=== PATIENT | male | born 1960 | race Caucasian/White ===

== ENCOUNTER 2024-07-14 06:41 | Outpatient (CLI) | payer OTHER, SELFPAY ==
--- NOTE | 2024-07-14 | CA_ITS ---
APPROVED REPORT EXAM: Comprehensive 2D, Doppler, and color-flow Echocardiogram Government Affairs Researcher: Ade Macias RVT Ht: 6 ft 0 in Wt: 195lbs BSA: 2.11 BP: 140/90 mmHg Indications: HEART DISEASE,DM,AICD,CAD,HX CM,VA EVAL 2D Dimensions IVSd 0.73 cm M: 0.6-1.2 LVEF (Visual) 42.60 % PWd 1.06 cm M: 0.6 - 1.2 LA Volume 46.40 mL LVDd 4.82 cm M: 4.2 - 5.9 LA Volume Index 21.99 mL/m2 (M/F) 16-34 LVDs 3.81 cm M: 2.5 - 4.0 M-Mode Dimensions RVDd 3.14 cm (0.9-2.6) LA Diam 4.13 cm (1.9-4.0) LVDd 4.92 cm (3.5-5.7) LVDs 4.08 cm (3.5-5.7) IVSd 0.75 cm (0.6-1.1) PWd 0.94 cm (0.6-1.1) EF (Teich) 35.60% FS 17.10% EDV (Teich) 113.90 mL ESV (Teich) 73.40 mL LV Diastology E Decel Time 150 (160-240 msec) E/A Ratio 0.6 Aortic Valve TARSHA Index 1.94 cm2/m2 AoV Peak Henry. 112.0 (50-130 cm/s) AO Peak GR. 5.00 mmHg AO Mean GR. 3.20 (<5 mmHg) AO VTI 22.5 (18-25 cm) TARSHA (VTI) 4.19 (2.5-4.5 cm2) Mitral Valve MV E Max Henry. 52.0 (40-130 cm/s) MV A Velocity 85.0 (40-130 cm/s) E/A Ratio 0.61 MV PHT 44.0 ms Pulmonary Valve PV Peak Velocity 92.0 (50-150 cm/s) Tricuspid Valve TR P. Velocity 219.00 cm/s RAP Estimate 10.00 mmHg RVSP 29.30 mmHg Left Ventricle The left ventricle is normal size. The left ventricular systolic function is mildly reduced. There is increased LV wall thickness. There is mild global hypokinesis present. The septum is asynchronous. Grade 1 diastolic dysfunction. LVEF is 45%. Right Ventricle The right ventricle is mildly dilated. The right ventricular systolic function is normal. Atria The left atrium size is normal. The right atrium size is normal. There is no Doppler evidence of interatrial shunt. Aortic Valve The aortic valve is mildly thickened. Trace aortic regurgitation. There is no aortic valvular stenosis. Mitral Valve The mitral valve is normal in structure. No evidence of mitral valve stenosis. Trace mitral regurgitation. Tricuspid Valve Tricuspid valve is grossly normal in structure and function. Trace tricuspid regurgitation. There is insufficient TR jet to estimate RVSP. Pulmonic Valve The pulmonary valve is normal in structure. Trace pulmonic regurgitation. Great Vessels The aortic root is normal in size. IVC is normal in size and collapses >50% with inspiration. Pericardium There is no pericardial effusion. Other Information Study Quality: Technically Difficult Conclusion Technically difficult study due to poor acoustic windows. Mildly reduced LV systolic function (LVEF 45%). Mild RV dilation with normal RV function. No significant valvular stenosis or regurgitation. In the setting of technically difficult study and mildly reduced LV systolic function on this TTE, further evaluation with limited TTE with administration of ultrasound enhancing agent is suggested to better delineate the LV endocardial borders and confirm the presence vs. absence of systolic dysfunction. Electronically signed by : Lynn Maynard MD 07/17/2024 21:09:25
--- OUTSIDE RECORDS SUMMARY | 2024-07-14 06:45 | XMS_ITS | Encounter Summary ---
Author Name [facility] [place] [facility] [place] Address [address] [place] [address] Care Team Providers Care Watchmaker Apprentice Name Role Phone GODFREY SALAS Primary Care Provider Unavaila MARTHA Luis Primary Care Provider Unavailabl e Insurance Providers: All historical and current Section Date Range: From patient's date of to the date document was created. This section includes the names of all active insurance providers for the patient. Insurance Provider Type of Coverage Plan Name Start of Policy Coverage End of Policy Coverage Group Number Member ID Insurance Provider's Telephone Number Policy Zuniga's Name Patient's Relationship to Policy Zuniga MEDICARE (WNR) MEDICARE (M) PART A May 30, 2024 PART A [id number] WIGGLESWO RTH,STEWA RT PATIENT MEDICARE (WNR) MEDICARE (M) PART B May 30, 2024 PART B [id number] WIGGLESWO RTH,STEWA RT PATIENT [facility] 2017 SELEC T RETIR ED May 16, 2018 [facility] [id number] [phone] WIGGLESWO RTH,STEWA RT PATIENT [facility] 2017 [employer] A Apr 01, 2017 DOD [id number] WIGGLESWO RTH,STEWA RT PATIENT [facility] 2024 PRIME RETIR ED Apr 01, 2024 PRIME RETIRED [id number] [phone] WIGGLESWO RTH,STEWA RT PATIENT Selected Encounter This section includes the information on record at [place] for the Encounter. Date/Time Encounter Type Encounter Description Reason Pro vider Source Mar 26, 2024 02:00 PM Outpatient Encounter CARDIAC CATHETERIZATION IHE Encounter Template Text not used by [place] Plan of Treatment: Future Appointments (+ 6 months) and Future Tests (+/- 45 days) The Plan of Treatment section includes future care activities for the patient from all [place] treatmentfacilities. This section includes future appointments and future orders which are active, pending or scheduled. Future Appointments This section includes appointments that were scheduled to occur 6 months from the date of the Encounter, up to a maximum of 20 appointments. The data comes from all [place] treatment facilities. Appointment Date/Time Appointment Type Appointme nt Facility Name Apr 08, 2024 08:15 AM [facility] Apr 16, 2024 01:30 PM [facility] - NONE [place] [facility] Apr 16, 2024 02:15 PM [facility] - N[place] [facility] May 05, 2024 09:40 AM AMBUL[facility]ORY - SURGERY [place] [facility] Jun 03, 2024 10:00 AM AM[place]ORY - NONE [place] [facility] Jun 05, 2024 09:30 AM [facility]ORY - NONE [place] [facility] Jun 17, 2024 08:00 AM [facility] Jun 17, 2024 09:00 AM [facility] - [facility]ONE [place] [facility] Jun 25, 2024 08:00 AM [facility] Jun 26, 2024 08:20 AM [facility] - SURGERY [place] [facility] Jun 29, 2024 01:30 PM AM[place]ORY - NONE [place] [facility] Jul 15, 2024 09:00 AM [facility]ORY - NONE [place] [facility] Jul 27, 2024 08:00 AM [facility] [place] [facility] Jul 29, 2024 01:00 PM [facility] August 03, 2024 07:00 AM [facility] - NONE [place] [facility] Sep 23, 2024 10:00 AM [facility] Lab Results: +/- 30 days of the encounter This section includes the Chemistry and Hematology Lab Results on record with [place] for the patient. Radiology Reports and Pathology Reports are provided separately, in subsequent sections. Lab Results This section contains the Chemistry/Hematology Results that were resulted 30 days before or 30 daysafter the date of the Encounter. Date/Time Source Result Type Result - Unit Interpretation Reference Range Specimen Type Comment Mar 23, 2024 09:13 AM [facility] N HBSAG SERUM Specimen Type: SERUM Comment: FOR HBSAB TESTING: Reactive HBsAb denotes immunity by vaccination or recovery from Hepatitis B infection. Individuals found to be reactive for both HBV Core AB total and HBsAb are immune due to prior natural infection. Individuals found to be nonreactive for HBV Core AB total and reactive for HBsAb (anti-HBs) are immune due to prior immunization. Individuals found to be reactive for HBV Core AB total and nonreactive for HBsAb (anti-HBs) are considered to have a current Hepatitis B infection, either acute or chronic. Individuals found to be nonreactive for both HBV Core AB total and HBsAb are at risk for Hepatitis B infection (HBV) and HBV immunization should be considered. FOR HBSAG TEST: Reactive HBsAG indicates acute or chronic Hepatitis B infection. Ordering Provider: MARTHA HENLEY Report Released Date/Time: Mar 16, 2024 11:01 AM Reporting Lab: [address] [address] Performing Lab: [address] [address] HBSAG Nonreactive Nonreactive Mar 23, 2024 09:13 AM [facility] HBSAB S JOSE Specimen Type: SERUM Comment: FOR HBSAB TESTING: Reactive HBsAb denotes immunity by vaccination or recovery from Hepatitis B infection. Individuals found to be reactive for both HBV Core AB total and HBsAb are immune due to prior natural infection. Individuals found to be nonreactive for HBV Core AB total and reactive for HBsAb (anti-HBs) are immune due to prior immunization. Individuals found to be reactive for HBV Core AB total and nonreactive for HBsAb (anti-HBs) are considered to have a current Hepatitis B infection, either acute or chronic. Individuals found to be nonreactive for both HBV Core AB total and HBsAb are at risk for Hepatitis B infection (HBV) and HBV immunization should be considered. FOR HBSAG TEST: Reactive HBsAG indicates acute or chronic Hepatitis B infection. Ordering Provider: MARTHA HENLEY Report Released Date/Time: Mar 16, 2024 11:01 AM Reporting Lab: [address] [address] Performing Lab: [address] [address] HBSAB Nonreactive Nonreactive Mar 23, 2024 09:13 AM [facility] GLYCOHEMOGLOBIN BLOOD Specimen Type: BLOOD Comment: [place] guidelines for A1c interpretation: Glycemic control targets are based on Shared Decision Making between clinicians and patients. Criteria used to establish an A1c target recommendation can be found at https://www.or.gov/qualityandpatientsafety/ and include the use of result accuracy and precision(CV) of the A1c tests clinicians utilize at their own sites of practice. Values obtained from A1C measurements can vary. For typical A1C assays, a reported value of 7.0 could actually be between 6.72 and 7.28 if measured by a reference method. A reported value of 9.0 could actually be between 8.73 and 9.27. Ref: https://ngsp.org/CAPdata.asp. The in-house [employer] D-100 analyzer has a historical CV <= 2%. Contact the laboratory for further performance characteristics of this assay. Ordering Provider: MARTHA HENLEY Report Released Date/Time: Mar 16, 2024 11:01 AM Reporting Lab: [address] [address] Performing Lab: [address] [address] GLYCOHEMOGLOBIN 8.2 H 4.4-6.4 Mar 23, 2024 09:13 AM [facility] LIPID PROFILE PLASMA Specimen Type: PLASMA Comment: FOR HBSAB TESTING: Reactive HBsAb denotes immunity by vaccination or recovery from Hepatitis B infection. Individuals found to be reactive for both HBV Core AB total and HBsAb are immune due to prior natural infection. Individuals found to be nonreactive for HBV Core AB total and reactive for HBsAb (anti-HBs) are immune due to prior immunization. Individuals found to be reactive for HBV Core AB total and nonreactive for HBsAb (anti-HBs) are considered to have a current Hepatitis B infection, either acute or chronic. Individuals found to be nonreactive for both HBV Core AB total and HBsAb are at risk for Hepatitis B infection (HBV) and HBV immunization should be considered. FOR HBSAG TEST: Reactive HBsAG indicates acute or chronic Hepatitis B infection. Ordering Provider: MARTHA HENLEY Report Released Date/Time: Mar 16, 2024 11:01 AM Reporting Lab: [address] [address] Performing Lab: [address] [address] CHOLESTEROL 161 mg/dL 0-199 TRIGLYCERIDE 156 mg/dL H 0-149 HDL CHOLESTEROL 58 mg/dL 40-69 DIRECT LDL CHOL. 100 mg/dL 0-100 Mar 23, 2024 09:13 AM [facility] PSA S JOSE Specimen Type: SERUM No comment entered. Ordering Provider: MARTHA HENLEY Report Released Date/Time: Mar 16, 2024 11:01 AM Reporting Lab: [address] [address] Performing Lab: [address] [address] PSA 1.538 ng/mL 0-3.999 Mar 23, 2024 09:13 AM [facility] PANEL 5 PLASMA Specimen Type: PLASMA Comment: FOR HBSAB TESTING: Reactive HBsAb denotes immunity by vaccination or recovery from Hepatitis B infection. Individuals found to be reactive for both HBV Core AB total and HBsAb are immune due to prior natural infection. Individuals found to be nonreactive for HBV Core AB total and reactive for HBsAb (anti-HBs) are immune due to prior immunization. Individuals found to be reactive for HBV Core AB total and nonreactive for HBsAb (anti-HBs) are considered to have a current Hepatitis B infection, either acute or chronic. Individuals found to be nonreactive for both HBV Core AB total and HBsAb are at risk for Hepatitis B infection (HBV) and HBV immunization should be considered. FOR HBSAG TEST: Reactive HBsAG indicates acute or chronic Hepatitis B infection. Ordering Provider: MARTHA HENLEY Report Released Date/Time: Mar 16, 2024 11:01 AM Reporting Lab: [address] [address] Performing Lab: [facility] [address] [facility] [address] CREATININE 1.34 mg/dL H 0.72-1.25 UREA NITROGEN 26 mg/dL H 9-25 GLUCOSE 169 mg/dL H 74-100 SODIUM 138 mmol/L 136-145 POTASSIUM 4.9 mmol/L 3.5-5.1 CHLORIDE 100 mmol/L 98-107 CO2 28 mmol/L 22-29 CALCIUM 10.1 mg/dL 8.4-10.2 TOTAL PROTEIN 7.1 g/dL 6.4-8.3 ALBUMIN 4.4 g/dL 3.5-5.2 TOTAL BILIRUBIN 0.5 mg/dL 0.2-1.2 AST 27 U/L 5-34 ALT 26 U/L 0-55 ANION GAP 10 meq/L 3-19 ALK PHOS 67 U/L 40-150 eGFR (CKD-EPI) 59 Mar 23, 2024 09:13 AM [facility] PLASMA Specimen Type: PLASM A Comment: Estimated Glomerular Filtration Rate (eGFR) calculated using the 2020 Chronic Kidney Disease-Epidemiology (CKD-EPI) Collaboration creatinine equation; units of measure are mL/min/1.73 m2. Results are only valid for adults (>=18 years) whose serum creatinine is in a steady state. eGFR calculations are not valid for patients with acute kidney injury and for patients on dialysis. Creatinine-based estimates of kidney function may also be inaccurate in patients with reduced creatinine generation due to decreased muscle mass (e.g., malnutrition, severe hypoalbuminemia, sarcopenia, chronic neuromuscular disease, amputations, severe heart failure or liver disease) and in patients with increased creatinine generation due to increased muscle mass (e.g., muscle builders, anabolic steroids) or increased dietary intake. As drug clearance is proportional to total GFR and not GFR indexed to body surface area (BSA), in individuals with a BSA substantially different than 1.73 m2, drug dosing should be based on the reported eGFR value de-indexed from BSA by multiplying by the individual's BSA and dividing by 1.73. CKD is diagnosed based on abnormalities of kidney structure or function, present for >3 months, with implications for health and disease. CKD is classified and staged based on cause, eGFR and albuminuria (quantified as urine albumin to creatinine ratio). An eGFR >60 mL/min/1.73 m2 in the absence of increased urine albumin excretion or structural abnormalities does not represent CKD. eGFR CKD Interpretation (mL/min/1.73 m2) stage >=90 G1 Normal 60-89 G2 Mild decrease 45-59 G3A Mild to moderate decrease 30-44 G3B Moderate to severe decrease 15-29 G4 Severe decrease <15 G5 Kidney failure Ordering Provider: MARTHA HENLEY Report Released Date/Time: Mar 16, 2024 11:01 AM Reporting Lab: [address] [address] Performing Lab: [address] [address] TSH 1.8877 m[IU]/mL 0.3500-4.9400 Mar 23, 2024 09:13 AM [facility] CBC/PLT BLOOD Specimen Type: BLOOD No comment entered. Ordering Provider: MARTHA HENLEY Report Released Date/Time: Mar 16, 2024 11:01 AM Reporting Lab: [address] [address] Performing Lab: [address] [address] WBC 6.5 10*3/uL 5.0-10.0 RBC 5.22 10*6/uL 4.6-6.2 HGB 14.3 g/dL 14.0-18.0 HCT 45.6 42.0-52.0 MCV 87.4 fL 80.0-94.0 MCH 27.4 pg 27.0-31.0 MCHC 31.4 g/dL L 32.0-36.0 PLT 180 10*3/uL 150-450 MPV 9.5 fL 9.0-13.1 RDW 15.6 11.0-16.0 NRBC 0.0 0.0-0.0 Mar 23, 2024 09:13 AM [facility] B12 VITAMIN PLASMA Specimen Type: PLASM A Comment: Estimated Glomerular Filtration Rate (eGFR) calculated using the 2020 Chronic Kidney Disease-Epidemiology (CKD-EPI) Collaboration creatinine equation; units of measure are mL/min/1.73 m2. Results are only valid for adults (>=18 years) whose serum creatinine is in a steady state. eGFR calculations are not valid for patients with acute kidney injury and for patients on dialysis. Creatinine-based estimates of kidney function may also be inaccurate in patients with reduced creatinine generation due to decreased muscle mass (e.g., malnutrition, severe hypoalbuminemia, sarcopenia, chronic neuromuscular disease, amputations, severe heart failure or liver disease) and in patients with increased creatinine generation due to increased muscle mass (e.g., muscle builders, anabolic steroids) or increased dietary intake. As drug clearance is proportional to total GFR and not GFR indexed to body surface area (BSA), in individuals with a BSA substantially different than 1.73 m2, drug dosing should be based on the reported eGFR value de-indexed from BSA by multiplying by the individual's BSA and dividing by 1.73. CKD is diagnosed based on abnormalities of kidney structure or function, present for >3 months, with implications for health and disease. CKD is classified and staged based on cause, eGFR and albuminuria (quantified as urine albumin to creatinine ratio). An eGFR >60 mL/min/1.73 m2 in the absence of increased urine albumin excretion or structural abnormalities does not represent CKD. eGFR CKD Interpretation (mL/min/1.73 m2) stage >=90 G1 Normal 60-89 G2 Mild decrease 45-59 G3A Mild to moderate decrease 30-44 G3B Moderate to severe decrease 15-29 G4 Severe decrease <15 G5 Kidney failure Vitamin B12 test may not yield results when protein level of sample is too elevated. Ordering Provider: MARTHA HENLEY Report Released Date/Time: Mar 16, 2024 11:01 AM Reporting Lab: [address] [address] Performing Lab: [address] [address] B12 VITAMIN 518 pg/mL 213-816 Mar 23, 2024 09:13 AM [facility] 25-OH VITAMIN D SERUM Specime n Type: SERUM Comment: The National Institutes of Health (NIH) recommendations state: <12 ng/mL - Deficient 20 - 50 ng/mL - Optimal Levels - adequate for most people. >50 ng/mL - Increased risk of hypercalciuria/other health problems - clinical correlation is required. These reference ranges represent clinical decision values rather than population-based reference values. Ordering Provider: MARTHA HENLEY Report Released Date/Time: Mar 16, 2024 11:01 AM Reporting Lab: [place] [phone] Performing Lab: [place] [phone] 25-OH VITAMIN D 51.2 ng/mL H 20.0-50.0 Mar 11, 2024 06:10 AM [facility] GLUCOSE-HAND MONITOR CAPILLARY Specime n Type: CAPILLARY Comment: Test performed by: [id number] Meter #: [id number] Ordering Provider: FELIBERTO MERINO Report Released Date/Time: Mar 11, 2024 06:27 AM Reporting Lab: [address] [address] Performing Lab: [address] [address] GLUCOSE-HAND MONITOR 170 mg/dL H Mar 10, 2024 08:59 PM [facility] GLUCOSE-HAND MONITOR CAPILLARY Specime n Type: CAPILLARY Comment: Test performed by: [id number] Meter #: [id number] Ordering Provider: FELIBERTO MERINO Report Released Date/Time: Mar 10, 2024 09:52 PM Reporting Lab: [address] [address] Performing Lab: [address] [address] GLUCOSE-HAND MONITOR 260 mg/dL H Mar 10, 2024 05:47 PM [facility] GLUCOSE-HAND MONITOR CAPILLARY Specime n Type: CAPILLARY Comment: Test performed by: [id number] Meter #: [id number] Ordering Provider: FELIBERTO MERINO Report Released Date/Time: Mar 10, 2024 11:25 PM Reporting Lab: [address] [address] Performing Lab: [address] [address] GLUCOSE-HAND MONITOR 299 mg/dL H 71-99 Mar 10, 2024 10:36 AM [facility] MRSA SURVL NARES DNA NARES Specime n Type: NARES Comment: Results from the Xpert MRSA NxG PCR test should be interpreted in conjunction with other laboratory and clinical data available to the clinician, and should be used as an adjunct to nosocomial infection control efforts to identify patients needing enhanced precautions. Results should not be used to guide or monitor treatment for MRSA infections. The Xpert MRSA NxG PCR test is not intended to diagnose, guide or monitor treatment for MRSA infections, or determine susceptibility to methicillin. An Xpert MRSA NxG PCR test positive result does not necessarily indicate intervention eradication failure since nonviable DNA may persist. A negative result following a previously positive test result may or may not indicate eradication success. Ordering Provider: FELIBERTO MERINO Report Released Date/Time: Mar 05, 2024 10:58 AM Reporting Lab: [address] [address] Performing Lab: [address] [address] MRSA SURVL NARES DNA Negative Negative Mar 10, 2024 08:52 AM [facility] PANEL 1 PLASMA Specimen Type: PLASM A Comment: Estimated Glomerular Filtration Rate (eGFR) calculated using the 2020 Chronic Kidney Disease-Epidemiology (CKD-EPI) Collaboration creatinine equation; units of measure are mL/min/1.73 m2. Results are only valid for adults (>=18 years) whose serum creatinine is in a steady state. eGFR calculations are not valid for patients with acute kidney injury and for patients on dialysis. Creatinine-based estimates of kidney function may also be inaccurate in patients with reduced creatinine generation due to decreased muscle mass (e.g., malnutrition, severe hypoalbuminemia, sarcopenia, chronic neuromuscular disease, amputations, severe heart failure or liver disease) and in patients with increased creatinine generation due to increased muscle mass (e.g., muscle builders, anabolic steroids) or increased dietary intake. As drug clearance is proportional to total GFR and not GFR indexed to body surface area (BSA), in individuals with a BSA substantially different than 1.73 m2, drug dosing should be based on the reported eGFR value de-indexed from BSA by multiplying by the individual's BSA and dividing by 1.73. CKD is diagnosed based on abnormalities of kidney structure or function, present for >3 months, with implications for health and disease. CKD is classified and staged based on cause, eGFR and albuminuria (quantified as urine albumin to creatinine ratio). An eGFR >60 mL/min/1.73 m2 in the absence of increased urine albumin excretion or structural abnormalities does not represent CKD. eGFR CKD Interpretation (mL/min/1.73 m2) stage >=90 G1 Normal 60-89 G2 Mild decrease 45-59 G3A Mild to moderate decrease 30-44 G3B Moderate to severe decrease 15-29 G4 Severe decrease <15 G5 Kidney failure Ordering Provider: FELIBERTO MERINO Report Released Date/Time: Mar 05, 2024 10:58 AM Reporting Lab: [address] [address] Performing Lab: [address] [address] CREATININE 1.36 mg/dL H 0.72-1.25 UREA NITROGEN 28 mg/dL H 9-25 GLUCOSE 137 mg/dL H 74-100 SODIUM 136 mmol/L 136-145 POTASSIUM 4.5 mmol/L 3.5-5.1 CHLORIDE 104 mmol/L 98-107 CO2 28 mmol/L 22-29 CALCIUM 10.0 mg/dL 8.4-10.2 ANION GAP 4 meq/L 3-19 eGFR (CKD-EPI) 58 Mar 10, 2024 08:51 AM [facility] CBC/PLT BLOOD Specimen Type: BLOOD No comment entered. Ordering Provider: FELIBERTO MERINO Report Released Date/Time: Mar 05, 2024 10:58 AM Reporting Lab: [address] [address] Performing Lab: [address] [address] WBC 5.6 10*3/uL 5.0-10.0 RBC 4.87 10*6/uL 4.6-6.2 HGB 13.7 g/dL L 14.0-18.0 HCT 42.8 42.0-52.0 MCV 87.9 fL 80.0-94.0 MCH 28.1 pg 27.0-31.0 MCHC 32.0 g/dL 32.0-36.0 PLT 159 10*3/uL 150-450 MPV 9.3 fL 9.0-13.1 RDW 16.5 H 11.0-16.0 NRBC 0.0 0.0-0.0 Radiology Reports: +/- 30 days of the encounter Radiology Reports For cases when an order for radiology services may have been completed prior to the date of the Encounter, the report list includes the Radiology Reports that were completed up to 30 days before dateof the Encounter. For cases when an order for radiology services may have been completed after the date of the Encounter, the report list also includes the Radiology Reports that were completed up to30 days after date of the Encounter. The data comes from all [place] treatment facilities. Date/Time Radiology Report Provider Source Mar 11, 2024 04:50 AM CHEST SINGLE(1) EW: KATE CARTER [id number] -[id number] M Exm Date: MAR 11, 2024@04:50 Req Phys: DOV TELLES Pat Loc: 5-OBM/TEL/03-11-2024@08:53 Img Loc: CDD RADIOLOGY Service: [place] [address] (Case [id number] COMPLETE)CHEST SINGLE(1) VIEW (RAD Detailed) CPT:27316 Proc Modifiers : PORTABLE EXAM Reason for Study: POST EPS PROCEDURE Clinical History: Rule out PTX s/p BiV ICD Report Status: Verified Date Reported: MAR 11, 2024 Date Verified: MAR 11, 2024 Casing Running Machine Tender E-Sig: Report: EXAMINATION: SINGLE VIEW CHEST CLINICAL INDICATIONS: Rule out pneumothorax after pacemaker placement COMPARISON: 02/13/2023 FINDINGS: Pacemaker from left subclavian approach has been placed with electrodes projecting within right atrium and right ventricle. There is no appreciable pneumothorax. Lungs are clear of acute infiltrate. Cardiovascular structures are unremarkable. Impression: Successful pacemaker placement without evidence of pneumothorax. Primary Diagnostic Code: NO ALERT REQUIRED Primary Interpreting Staff: CHIN B ANNA, Radiologist Verified by lottery sales clerk for [facility] Mar 10, 2024 07:46 AM TYPE INSPECTOR - FLUORO UP TO 1 HOUR: KATE CARTER [id number] -[id number] M Exm Date: MAR 10, 2024@07:46 Req Phys: FELIBERTO MERINO Pat Loc: CARDIAC CATH/OPT/CDD (Req'g Lo Img Loc: ANGIO/NEURO/INTERVENTIONAL Service: [place] [address] (Case [id number] COMPLETE) TYPE INSPECTOR - FLUORO UP TO 1 HOUR (ANI Detailed) CPT:89061 Reason for Study: BI-V-ICD Clinical History: BI-V-ICD Report Status: Verified Date Reported: Date Verified: MAR 10, 2024 Casing Running Machine Tender E-Sig: Report: See Impression Impression: Primary Care Physician imaging capture for storage. Please see CPRS Primary Care Physician consults and notes in CPRS for final reporting and exam documentation. Primary Diagnostic Code: Primary Interpreting Staff: [place] OTHER [place]AN [place] [facility], Staff Physician Verified by lottery sales clerk for [facility] [facility] /[facility] RADIOLOGIST,PHYS OTHER THAN [facility] Encounter Notes: All associated encounter notes This section contains the clinical notes associated to the Encounter. Date/Time Encounter Note(s) Provider Source Mar 10, 2024 08:59 AM CARDIOLOGY PROCEDU RE NOTE: LOCAL TITLE: CARDIAC CATH PROVIDER PROCEDURE REPORT STANDARD TITLE: CARDIOLOGY PROCEDURE NOTE DATE OF NOTE: MAR 10, 2024@08:59 ENTRY DATE: MAR 10, 2024@08:59:12 AUTHOR: FELIBERTO MERINO EXP COSIGNER: URGENCY: STATUS: COMPLETED Indications/Reason for Visit: Here for a Biv-ICD implant. History: Summary 02/21/24- TTE 09/25/23- Summary A complete two-dimensional transthoracic echocardiogram was performed (2D, M- mode, Doppler and color flow Doppler). Left Ventricle The left ventricular end-diastolic volume index (2D biplane method) is dilated for males (>74mL/m2). There is no thrombus. There is concentric left ventricular hypertrophy indexed for BSA (>102gm/m2). The estimated LVEF based upon the biplane Payan MOD technique is '27%'. SV index: 25 cc/m2; cardiac index: 1.8 liters/min/m2 using the continuity equation and an LVOT dimension of 22mm. There is severe global hypokinesis of the left ventricle. Right Ventricle The right ventricle is grossly normal size. The right ventricular systolic function is normal. Unable to estimate RVSP due to inadequate TR signal. Atria The left atrial volume index (ml/m2) is 'mildly dilated (35-41ml/m2)'. The right atrial size is normal. The RAP could not adequately be measured and an assumed pressure of 8mmHg was used to estimate the RVSP. Mitral Valve The mitral valve is normal in appearance. There is no mitral stenosis. There is mild mitral regurgitation. Tricuspid Valve The tricuspid valve is normal. There is no tricuspid stenosis. There is trace tricuspid regurgitation. Aortic Valve The aortic valve appears to be anatomically normal (trileaflet). No hemodynamically significant valvular aortic stenosis. No aortic regurgitation. Pulmonic Valve The pulmonic valve is not well seen, but is grossly normal. There is no pulmonic valvular stenosis. No pulmonic valvular regurgitation. Great Vessels The aortic root is normal size. The aorta at the Sinuses of Valsalva (leading edge to leading edge method) is 3.6 cm in diameter. The pulmonary artery is not well visualized. Pericardium/Pleural There is no pericardial effusion. CMRI - 04/23/23- Severely dilated left ventricle with severely depressed systolic function and an LV ejection fraction 24% 2. There is mid to distal LAD subendocardial enhancement (mixed, likely viable). RCA and LCx are viable. 3. Normal sized right ventricle with normal systolic function and an RV ejection fraction 56% 4. No significant valvular stenosis or regurgitation Assessment of the problems: Diagnosis: Ischemic Cardiomyopathy Left Bundle-Branch Block, unspecified Hypertensive Heart Disease with Heart Failure Hyperlipidemia, unspecified Clinical discussion and treatment plan: 63 y/o with - Ischemic cardiomyopathy - well compensated and euvolemic, on GDMT- RBA d/w pt - TTE 09/25/23 - LVEF 27%, CMRI 04/23/23- LVEF 24% Left Bundle - EKG - SR, QRS 166ms HTN - on Rx - HLD - on Rx - Plan- [facility] - Mar 10 Return to clinic: as above Meds were renewed as needed. Procedure: Mallampati: 3 ASA: 2 Mr. Carter was brought to the EP lab in a fasting state and was consented, prepped, draped, administered conscious sedation. Left subclavian access was obtained using a micropuncture needle set by means of the modified Seldinger technique, a pre pectoral incision was placed after infiltrating the skin with lidocaine. By means of sharp and blunt dissection a pocket was fashioned, hemostasis was attained, an RV lead with a shock coils was placed at the inferior RV septum, an RA lead was positioned at the RA appendage, an LV delivery sheath was then positioned within the CS and an occlusion CS angiogram was cine'd. The LV lead was positioned in an identified target vessel. Good lead thresholds were confirmed prior to securing the leads to the fascial bed using silk sutures. The leads were then connected to a pulse generator, the pocket was irrigated with copious amounts of antibx solution, the system was then implanted, DFT's were not assessed, the pocket was closed in multiple layers (skin was stapled), and a sterile dressing (Aquacel) was then placed. Pt tolerated the procedure well, there were no immediate complications. Device details: Generator - [facility], model [id number], SN [id number]. RA lead - [facility], model [id number], SN [id number]. RV lead - [facility], model 7122Q, SN [id number]. LV - [facility], model 1458QL, SN [id number]. Parameters: RA - threshold - 0.25v@0.5ms, 460 ohms, sensing - >5mV RV - threshold - 0.25v@0.5ms, 640 ohms, sensing - >12mV LV - threshold - 1.25v@0.5ms, 700 ohms. DFT's - were not assessed. Shock coil impedance - 73 ohms. Follow-up Treatment and Patient Instructions: Ancef 1gm IV X 1 dose, portable CXR to r/o PNTX, DC in am with FU afte 10 days for wound check and device check, staple removal. /amando/ FELIBERTO MERINO MD ATTENDING PHYSICIAN CARDIAC ELECTROPHYSIOLOGY Signed: 03/10/2024 13:15 FELIBERTO MERINO-[facility]
--- OUTSIDE RECORDS SUMMARY | 2024-07-14 06:46 | XMS_ITS | Encounter Summary ---
Author Name [facility] [place] Organization [facility] [place] Address [address] [place] [address] Care Team Providers Care Stem Setter Name Role Phone GODFREY SALAS Primary Care [...] PART A May 30, 2024 PART A [id number] WIGGLESWO RTH,STEWA RT PATIENT MEDICARE (WNR) MEDICARE (M) PART B May 30, 2024 PART B [id number] WIGGLESWO RTH,STEWA RT PATIENT [facility] 2017 SELEC T RETIR ED May 16, 2018 [facility] RETIRED [id number] [phone] WIGGLESWO RTH,STEWA RT PATIENT [facility] 2017 [facility] [employer] A Apr 01, 2017 DODA [id number] WIGGLESWO RTH,STEWA RT PATIENT [facility] 2024 PRIME RETIR ED Apr 01, 2024 PRIME RETIRED [id number] [phone] WIGGLESWO RTH,STEWA RT PATIENT Selected Encounter This section includes the information on record at [place] for the Encounter. Date/Time Encounter Type Encounter Description Reason Provider Source Jun 17, 2024 08:00 AM INTERROG DEVICE EVAL HEART CIED DEVICES ICD-10-CM I25.5 Ischemic cardiomyopathy DOV TELLES Encounter Template Text not used by [place] Assessments - Encounter Diagnoses This section includes the primary and secondary diagnoses documented for the Encounter. Date/Time Primary/Secondary Diagnosis Diagnosis Name Provider Source Jun 17, 2024 08:32 AM PRIMARY Ischemic cardiomyopathy DOV TELLES [facility] Plan of Treatment: Future Appointments (+ 6 months) and Future Tests (+/- 45 days) The Plan of Treatment section includes future care activities for the patient from all [place] [facility]. This section includes future appointments and future orders which are active, pending or scheduled. Future Appointments This section includes appointments that were scheduled to occur 6 months from the date of the Encounter, up to a maximum of 20 appointments. The data comes from all [facility]. Appointment Date/Time Appointment Type Appointme nt Facility Name Jun 25, 2024 08:00 AM AMBULATORY - MEDICINE [facility] Jun 26, 2024 08:20 AM AMBULATORY - SURGERY [place] [facility] Jun 29, 2024 01:30 PM AMBULATORY - NONE [place] [facility] Jul 15, 2024 09:00 AM [facility]ORY - NONE [place] Jul 27, 2024 08:00 AM AMBULATORY - SURGERY [place] [facility] Jul 29, 2024 01:00 PM AMBULATORY - MEDICINE [facility] August 03, 2024 07:00 AM AMBULATORY - NONE [place] [facility] Sep 23, 2024 10:00 AM AMBULATORY - MEDICINE [facility] Nov 03, 2024 09:40 AM AMBULATORY - SURGERY [facility] Active, Pending, and Scheduled Orders This section includes a listing of several types of active, pending, and scheduled orders, including clinic medications orders, diagnostic test orders, procedure orders and consult orders; where the start date of the order is 45 days before the date of the Encounter or 45 days after the date of theEncounter. The data comes from all [facility]. Test Date/Time Test Type Test Details Facility Name Jun 26, 2024 09:07 AM Consult Order PAIN CLINI C ANESTHESIOLOGY/PAIN CD OUTPATIENT Cons Compotype Operator's Choice [facility] Jul 15, 2024 12:00 AM Imaging - Ultrasou nd Order FNA BX W/ ULTRASND GDN,1ST LESION [facility] Radiology Reports: +/- 30 days of the [...] the Encounter. The data comes from all [facility]. Date/Time Radiology Report Provider Source Jun 29, 2024 12:58 PM U/S THYROID: DEBORAHHERMILOLEONELKATE [id number] -[id number] M Exm Date: JUN 29, 2024@12:58 Req Phys: MARTHA HENLEY Pat Loc: X-RAY/MRI/DOROTHEA/NC (Req'g Loc Img Loc: ULTRASOUND Service: [place] [address] (Case [id number] COMPLETE) U/S THYROID (US Detailed) CPT:92816 Reason for Study: SEE CLINICAL HISTORY Clinical History: REASON FOR EXAM:Nodule/Lesion follow up PERTINENT PATIENT HISTORY: PROVIDER ExtPager# Report Status: Verified Date Reported: JUN 30, 2024 Date Verified: JUN 30, 2024 Cardiovascular Physician Assistant E-Sig: Report: EXAMINATION: THYROID ULTRASOUND CLINICAL INDICATIONS: MRI cervical spine report describing Suggestion of small left thyroid nodule. Follow-up nonemergent thyroid sonogram is also recommended for confirmation. COMPARISON: MRI cervical spine 06/17/2024 FINDINGS: The right thyroid lobe measures 4.5 x 1.4 x 2.1 cm in left thyroid measures 4.6 x 1.7 x 1.9 cm. The isthmus measures 2.4 mm. Nodule 1 in the superior right thyroid lobe measures 8.8 x 9.8 x 5.5 mm. This is considered a TR 4 lesion for which no additional follow-up is recommended given its size. Nodule 2 in the posterior mid right thyroid measures 8.9 x 13.1 x 9.5 mm and is considered a TR 4 lesion for which one-year follow-up exam is recommended. A heterogeneous complex cystic and solid nodule predominantly solid in the superior left thyroid lobe measures 18.7 x 21.4 x 12.7 mm and contains some punctate echogenic foci. This is considered to be a TR 5 lesion which is suspicious and for which fine-needle aspiration is recommended. Impression: Dominant nodule in the left thyroid lobe for which fine-needle aspiration is recommended. 1 year follow-up thyroid ultrasound of right thyroid nodule is recommended Primary Diagnostic Code: POSSIBLE MALIGNANCY Primary Interpreting Staff: CHIN CASTILLO, Radiologist Verified by leadership recruiter for CHIN CASTILLO /CHIN LEES-MARÍA [facility] Jun 17, 2024 08:36 AM MRI C SPINE W/O CO NTRAST: KATE CARTER [id number] -[id number] M Exm Date: JUN 17, 2024@08:36 Req Phys: MARTHA HENLEY Pat Loc: XIOMY PACT JACI 1-2 (Req'g Lo Img Loc: MAGNETIC [facility]ON[facility] IMAGING Service: [place] [address] (Case [id number] COMPLETE) MRI C SPINE W/O CONTRAST (MRI Detailed) CPT:50773 Reason for Study: SEE CLINICAL HISTORY Clinical History: STATUS OF PLAIN FILMS:Done, exam date/impression above. MRI Screening (Required): IMPLANTED DEVICE DOCUMENTATION 03/11/2024 09:29 Local Title: IMPLANTED CARDIAC DEVICE Standard Title: CLINICAL WARNING Patient has an Implanted Cardiac Device. Cardiac Device Type: BIV ICD Cage Operator: [employer] Device details: Generator - [employer], model [id number], SN [id number]. RA lead - [employer], model [id number], SN [id number]. RV lead - [employer], model [id number], SN [id number]. LV - [employer], model [id number], SN [id number]. Parameters: RA - threshold - 0.25v@0.5ms, 460 ohms, sensing - >5mV RV - threshold - 0.25v@0.5ms, 640 ohms, sensing - >12mV LV - threshold - 1.25v@0.5ms, 700 ohms. DFT's - were not assessed. Shock coil impedance - 73 ohms. Implant 03/10/2024 Dr. Mckinney Signed by: /es/ RUTHANN BARONE RN 03/11/2024 09:32 Does the have any Cardiac Implants? ICD Does the have any implanted stimulators? None Does the Trenary have cochlear implants? No Does the have Cerebral aneurysm clip(s)? No Does the Trenary have any shrapnel? No If yes, where in your body? Please list other implants not listed above: MRI table has a weight limit of 551 lbs. Trenary's Weight: *198 lb [89.81 kg] (03/16/2024 10:02) Is this patient claustrophobic?: No REASON FOR EXAM: OTHER (provide detailed justification for your request) PERTINENT PATIENT HISTORY: Cervical radiculopathy Risk factors for GADOLINIUM NEPHROGENIC SYSTEMIC SCLEROSIS: Report Status: Verified Date Reported: JUN 17, 2024 Date Verified: JUN 17, 2024 Cardiovascular Physician Assistant E-Sig: Report: KATE PAVON RAUL 1960 EXAM: MRI C SPINE W/O CONTRAST INDICATION: Cervical radiculopathy. COMPARISON: Radiographs dated 10/06/2020. TECHNIQUE: Multiplanar multisequential MRI of the cervical spine was performed without gadolinium contrast. FINDINGS: Bone marrow signal intensity is normal. There is no acute fracture or subluxation. Surgical fusion of C4, C5 and C6 vertebral bodies is again identified. C2-3 level is unremarkable. At C3-4 level, there is a small broad-based central disc osteophyte complex resulting in severe spinal stenosis. There is also suggestion of subtle T2 signal hyperintensity within the spinal cord concerning for cord compression. There is also severe bilateral neural foraminal stenosis from facet and uncovertebral joint hypertrophy. C4-5 and C5-6 levels are unremarkable. At C6-7 level, there is a small broad-based central disc bulge mildly effacing the ventral CSF. There is mild left neural foraminal stenosis from facet and uncovertebral joint hypertrophy. C7-T1 level and paraspinal soft tissues are unremarkable. There is suggestion of small left thyroid nodule. Impression: 1. Suggestion of spinal cord compression at C3-4 level from a small central disc osteophyte complex. Close clinical follow-up and prompt surgical evaluation are recommended. 2. Multilevel neural foraminal stenosis as detailed above. 3. Suggestion of small left thyroid nodule. Follow-up nonemergent thyroid sonogram is also recommended for confirmation. Primary Diagnostic Code: CRITICAL ABNORMALITY Primary Interpreting Staff: FATUMA GARCIA, Staff Physician Verified by leadership recruiter for FATUMA GARCIA /OCTAVIA GARCIA,[facility]MA [facility] Encounter Notes: All associated encounter notes This section contains the clinical notes associated to the Encounter. Date/Time Encounter Note(s) Provider Source Jun 17, 2024 08:22 AM NURSING OUTPATIENT NOTE: LOCAL TITLE: [facility]INIC INTAKE NOTE STANDARD TITLE: NURSING OUTPATIENT NOTE DATE OF NOTE: JUN 17, 2024@08:22 ENTRY DATE: JUN 17, 2024@08:22:31 AUTHOR: LISA BARONE EXP COSIGNER: URGENCY: STATUS: COMPLETED Reason for visit/chief complaint: B/P: 128/75 (06/17/2024 08:20) P: 70 (06/17/2024 08:20) R: 16 (03/16/2024 10:02) T: 97.5 F [36.4 C] (06/17/2024 08:20) HT: 72 in [182.9 cm] (03/16/2024 10:02) WT: 204.4 lb [92.71 kg] (06/17/2024 08:20) Are you having any pain or recurrent pain in the last several weeks/months? No Severity Scale (0) Location: Duration: Characteristics: Pain education material offered to patient (for pain > 3) No Risk factors history: Hypertension Yes BP Rechecked No Comments: Patient notified dairy feed worker available upon request for any examinations/procedures. The patient was given a list of his/her medications, instructed to review and discuss any changes or problems with their provider. Patient advised to carry a list of current medications and any allergies with them in the event of emergency situations. Allergies: local and remote VANCOMYCIN, GABAPENTIN, PREGABALIN, SIMVASTATIN, ROSUVASTATIN FACILITY ALLERGY/ADR -------- 581^DEBI [facility]^581 VANCOMYCIN Medication Reconciliation ACTIVE OUTPATIENT MEDICATIONS LOCAL/REMOTE ACCU-CHEK GUIDE (GLUCOSE) TEST STRIP Directions: USE 1 STRIP TO TEST BLOOD SUGAR DIRECTED Quantity: 200 for 90 days Issued: 03/08/24 Filled: 03/09/24 Expires: 03/09/25 Refills: 3 Status: ACTIVE ACETAMINOPHEN 325MG TAB Directions: TAKE TWO TABLETS BY MOUTH THREE TIMES A DAY NEEDED FOR PAIN DO NOT TAKE MORE THAN 12 TABLETS PER DAY Quantity: 200 for 30 days Issued: 03/16/24 Filled: 05/04/24 Expires: 03/17/25 Refills: 2 Status: ACTIVE ASPIRIN 81MG EC TAB Directions: TAKE ONE TABLET BY MOUTH DAILY FOR HEART Quantity: 90 for 90 days Issued: 01/29/24 Filled: 04/19/24 Expires: 01/29/25 Refills: 2 Status: ACTIVE CHOLECALCIF 25MCG (D3-1,000UNIT) TAB Directions: TAKE ONE TABLET BY MOUTH DAILY FOR VITAMIN D SUPPLEMENT Quantity: 100 for 90 days Issued: 12/03/23 Filled: 05/23/24 Expires: 12/03/24 Refills: 2 Status: ACTIVE EMPAGLIFLOZIN 10MG TAB Directions: TAKE ONE TABLET BY MOUTH EVERY MORNING FOR HEART FAILURE Quantity: 90 for 90 days Issued: 09/25/23 Filled: 06/25/24 Expires: 09/25/24 Refills: 0 Status: ACTIVE EZETIMIBE 10MG TAB Directions: TAKE ONE TABLET BY MOUTH EVERY EVENING FOR CHOLESTEROL Quantity: 90 for 90 days Issued: 09/25/23 Filled: 04/06/24 Expires: 09/25/24 Refills: 1 Status: ACTIVE FLUTICASONE PROP 50MCG 120D NASAL INHL Directions: USE 1 SPRAY IN EACH NOSTRIL DAILY FOR NASAL ALLERGY Quantity: 3 for 90 days Issued: 11/11/23 Filled: 04/29/24 Expires: 11/11/24 Refills: 1 Status: ACTIVE GLIPIZIDE 10MG TAB Directions: TAKE TWO TABLETS BY MOUTH TWICE A DAY FOR DIABETES Quantity: 360 for 90 days Issued: 12/10/23 Filled: 04/06/24 Expires: 12/10/24 Refills: 2 Status: ACTIVE GLUCOSE 4GM CHEW TAB Directions: CHEW 4 TABLETS (16 GRAMS OF CARBS) BY MOUTH DIRECTED FOR LOW BLOOD SUGAR Quantity: 90 for 90 days Issued: 05/28/24 Filled: 05/28/24 Expires: 05/29/25 Refills: 3 Status: ACTIVE GLUCOSE SENSOR DEXCOM G7 Directions: USE SENSOR DIRECTED EVERY 10 DAYS FOR BLOOD SUGAR MONITORING Quantity: 9 for 90 days Issued: 03/17/24 Filled: 03/20/24 Expires: 03/18/25 Refills: 3 Status: ACTIVE INSULIN,GLARGINE 100 UNT/ML 3ML SOLOSTAR Directions: INJECT 24 UNITS UNDER THE SKIN DAILY FOR BLOOD SUGAR -DISCARD PEN AFTER 28 DAYS OF USE. REPLACES GLARGINE-YFGN Quantity: 5 for 60 days Issued: 05/11/24 Filled: 05/13/24 Expires: 05/12/25 Refills: 5 Status: ACTIVE LATANOPROST 0.005% OPH SOLN Directions: PUT 1 DROP IN BOTH EYES AT BEDTIME FOR GLAUCOMA Quantity: 10 for 90 days Issued: 04/15/24 Filled: 04/15/24 Expires: 04/16/25 Refills: 3 Status: ACTIVE METFORMIN HCL 500MG 24HR SA TAB Directions: TAKE TWO TABLETS BY MOUTH TWICE A DAY FOR DIABETES Quantity: 120 for 30 days Issued: 02/05/24 Filled: 06/25/24 Expires: 02/05/25 Refills: 6 Status: ACTIVE METOPROLOL SUCCINATE 100MG SA TAB Directions: TAKE ONE AND ONE-HALF TABLETS BY MOUTH DAILY FOR HEART Quantity: 135 for 90 days Issued: 09/25/23 Filled: 06/12/24 Expires: 09/25/24 Refills: 0 Status: ACTIVE MULTIVIT/OPHTH AREDS2/LUTE/ZEAX CAP/TAB Directions: TAKE 1 SOFTGEL BY MOUTH TWICE A DAY AFTER MEALS FOR EYE HEALTH Quantity: 180 for 90 days Issued: 01/17/24 Filled: 04/09/24 Expires: 01/17/25 Refills: 2 Status: ACTIVE NEEDLE,PEN 32G,4MM Directions: USE 1 NEEDLE UNDER THE SKIN EVERY DAY Quantity: 100 for 90 days Issued: 03/06/24 Filled: 03/09/24 Expires: 03/07/25 Refills: 1 Status: ACTIVE OMEPRAZOLE 20MG EC CAP Directions: TAKE ONE CAPSULE BY MOUTH TWICE A DAY FOR STOMACH. TAKE ON AN EMPTY STOMACH Quantity: 180 for 90 days Issued: 02/05/24 Filled: 05/11/24 Expires: 02/05/25 Refills: 2 Status: ACTIVE ROSUVASTATIN CA 40MG TAB Directions: TAKE ONE TABLET BY MOUTH DAILY FOR CHOLESTEROL Quantity: 90 for 90 days Issued: 09/25/23 Filled: 06/26/24 Expires: 09/25/24 Refills: 0 Status: ACTIVE SACUBITRIL 97MG/VALSARTAN 103MG TAB Directions: TAKE 1 TABLET BY MOUTH TWICE A DAY FOR HEART FAILURE Quantity: 180 for 90 days Issued: 01/29/24 Filled: 05/18/24 Expires: 01/29/25 Refills: 2 Status: ACTIVE SPIRONOLACTONE 25MG TAB Directions: TAKE ONE TABLET BY MOUTH DAILY FOR HEART FAILURE Quantity: 90 for 90 days Issued: 09/25/23 Filled: 06/12/24 Expires: 09/25/24 Refills: 0 Status: ACTIVE No remote medications found. PENDING OUTPATIENT MEDICATONS (LOCAL/REMOTE): No local medications found. No remote medications found. ACTIVE NONVA MEDICATIONS (LOCAL): ASCORBIC ACID 500MG TAB Directions: 1000MG MOUTH DAILY Status: ACTIVE CENTRUM SILVER TABLET Directions: 1 TABLET MOUTH DAILY Status: ACTIVE COENZYME Q10 CAP/TAB Directions: 1 CAP/TAB MOUTH DAILY Status: ACTIVE MAGNESIUM OXIDE 420MG TAB Directions: 840MG MOUTH DAILY Status: ACTIVE OUTPATIENT MEDICATIONS (LOCAL)WITHIN 90 DAYS: No local medications found. DISCONTINUED OUTPATIENT MEDICATIONS (LOCAL) WITHIN 90 DAYS: ACETAMINOPHEN 325MG TAB Directions: TAKE TWO TABLETS BY MOUTH TWICE A DAY NEEDED FOR PAIN - DO NOT TAKE MORE THAN 12 TABLETS PER DAY Quantity: 100 for 30 days Issued: 07/28/23 Filled: 11/22/23 Expires: 07/28/24 Refills: 0 Status: DISCONTINUED FLUTICASONE PROP 50MCG 120D NASAL INHL Directions: USE 1 SPRAY IN EACH NOSTRIL DAILY FOR NASAL ALLERGY Quantity: 2 for 90 days Issued: 10/22/23 Filled: 11/22/23 Expires: 10/22/24 Refills: 3 Status: DISCONTINUED INSULIN,GLARGINE-YFGN 100UNIT/ML *PEN* Directions: INJECT 24 UNITS UNDER THE SKIN DAILY FOR BLOOD SUGAR -DISCARD PEN AFTER 28 DAYS OF USE Quantity: 5 for 60 days Issued: 05/11/24 Filled: 05/11/24 Expires: 05/12/25 Refills: 5 Status: DISCONTINUED MUPIROCIN 2% OINT Directions: APPLY SMALL AMOUNT TO AFFECTED AREA TWICE A DAY FOR SKIN INFECTION Quantity: 22 for 30 days Issued: 04/11/23 Filled: 04/11/23 Expires: 04/11/24 Refills: 1 Status: DISCONTINUED SACUBITRIL 24MG/VALSARTAN 26MG TAB Directions: TAKE 1 TABLET BY MOUTH TWICE A DAY FOR HEART FAILURE Quantity: 180 for 90 days Issued: 05/08/23 Filled: 05/08/23 Expires: 05/08/24 Refills: 3 Status: DISCONTINUED SPIRONOLACTONE 25MG TAB Directions: TAKE ONE-HALF TABLET BY MOUTH DAILY FOR HEART FAILURE Quantity: 15 for 30 days Issued: 06/04/23 Filled: 07/24/23 Expires: 06/04/24 Refills: 0 Status: DISCONTINUED ACETAMINOPHEN 325MG TAB Directions: TAKE TWO TABLETS BY MOUTH TWICE A DAY NEEDED FOR PAIN - DO NOT TAKE MORE THAN 12 TABLETS PER DAY Quantity: 100 for 30 days Issued: 01/14/24 Filled: 02/27/24 Expires: 01/14/25 Refills: 2 Status: DISCONTINUED (EDIT) INSULIN,GLARGINE-YFGN 100UNIT/ML *PEN* Directions: INJECT 17 UNITS UNDER THE SKIN DAILY FOR BLOOD SUGAR -DISCARD PEN AFTER 28 DAYS OF USE Quantity: 5 for 90 days Issued: 10/15/23 Filled: 01/04/24 Expires: 10/15/24 Refills: 2 Status: DISCONTINUED (EDIT) INSULIN,GLARGINE-YFGN 100UNIT/ML *PEN* Directions: INJECT 20 UNITS UNDER THE SKIN DAILY FOR BLOOD SUGAR -DISCARD PEN AFTER 28 DAYS OF USE Quantity: 5 for 90 days Issued: 03/23/24 Filled: 03/23/24 Expires: 03/24/25 Refills: 3 Status: DISCONTINUED (EDIT) SACUBITRIL 49MG/VALSARTAN 51MG TAB Directions: TAKE 1 TABLET BY MOUTH TWICE A DAY FOR HEART FAILURE - THIS IS A DOSE INCREASE. START THIS INCREASED DOSE ON 07/31/2023 Quantity: 180 for 90 days Issued: 07/16/23 Filled: 10/07/23 Expires: 07/16/24 Refills: 0 Status: DISCONTINUED (EDIT) SPIRONOLACTONE 25MG TAB Directions: TAKE ONE-HALF TABLET BY MOUTH DAILY FOR HEART FAILURE Quantity: 15 for 30 days Issued: 08/02/23 Filled: 08/23/23 Expires: 08/02/24 Refills: 2 Status: DISCONTINUED (EDIT) CLINIC MEDICATIONS (LOCAL): CEFAZOLIN 1GM/D5W 50ML INJ Special: Give service station console operator to engineer geophysical laboratory. PROPHYLAXIS Solution: CEFAZOLIN 1GM/D5W (50 ML) Issued: 03/10/24 Expires: 04/10/24 Status: GENTAMICIN INJ,SOLN Special: For Director Of Intelligence Solution: SODIUM CHLORIDE 0.9% *IRRIG* (500 ML) Additive: GENTAMICIN (40 MG) Issued: 03/10/24 Expires: 03/11/24 Status: SODIUM CHLORIDE 0.9% INJ,SOLN Special: humidifier attendant to Director Of Intelligence. Solution: SODIUM CHLORIDE 0.9% (1000 ML) Issued: 03/10/24 Expires: 03/24/24 Status: Reviewed current medications with patient/signficant other, patient/significant other reports patient taking ALL VA, Non VA & OTC medications as listed on [facility] medication tab outpatient section. Yes *Printed copy of medication list provided to patient and reviewed. Yes *Explained to the patient the importance of keeping providers updated on medication changes and to carrying an updated list of medication at all times in case of an emergency situation. Yes /amando/ LISA BARONE LPN Signed: 06/17/2024 08:23 LISA BARONE-HARPERD [facility] Jun 17, 2024 08:19 AM CARDIOLOGY E & M N OTE: LOCAL TITLE: CARDIOLOGY PACEMAKER FOLLOWUP PROGRESS NOTE STANDARD TITLE: CARDIOLOGY E & M NOTE DATE OF NOTE: JUN 17, 2024@08:19 ENTRY DATE: JUN 17, 2024@08:20:04 AUTHOR: DOV TELLES EXP COSIGNER: URGENCY: STATUS: COMPLETED CARDIOLOGY PACEMAKER FOLLOWUP PROGRESS NOTE Has ADDENDA 64 male with ICM, CAD, here today for device check prior to getting MRI later today. 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 ICM- BiV ICD interrogated showing normal function. Has remote monitoring. No changes today. Follow up 6 months Program the MRI conditional device to MRI Safe Mode. Patients who require pacing support, MRI pacing mode must be set to DOO, AOO or VOO 10-15 beats per minute higher than the patients intrinsic rhythm to prevent competitive pacing. /amando/ DOV TELLES physician embroidery assistant Signed: 06/17/2024 08:32 06/17/2024 ADDENDUM STATUS: COMPLETED Trenary exited clinic per PA/FINISHER TAILOR APPRENTICE. All medications and treatment plan was discussed with prior to exiting clinic by provider. Trenary to RTC 3 months with [facility] via F2F, as ordered/scheduled. Per provider order/instruction above. If this provider is not available or requires overbook please alert Elastic Attacher Overlock. Appointment letter to be mailed. a) to be scheduled for interrogation same day as follow up appt. /amando/ ALIYA MAYEN Registered Nurse Signed: 06/17/2024 13:47 DOV TELLES-MARÍA [facility] Jun 17, 2024 08:18 AM CARDIOLOGY NOTE: LOCAL TITLE: CARD CIED MRI PROVIDER NOTE STANDARD TITLE: CARDIOLOGY NOTE DATE OF NOTE: JUN 17, 2024@08:18 ENTRY DATE: JUN 17, 2024@08:18:15 AUTHOR: DOV TELLES EXP COSIGNER: URGENCY: STATUS: COMPLETED Device Company: [employer] - Magnetic Resonance (MR) conditional device PRE MRI Device Interrogation Completed and Reviewed; Patient MEETS ALL MRI Conditions of use stated below: Patient has a complete MRI ready system with MR conditional pulse generator and lead(s). Confirmed the absence of lead extenders, lead adapters, and broken or abandoned leads. Lead impedance measurements are within the programmed lead impedance limits. Pulse generator is implanted in the left or right pectoral region. At least six (6) weeks have elapsed since implantation and/or lead revision. Pulse generator has sufficient battery (neither Elective Replacement Indicated (ROMA) nor End of Service (EOS)) MRI PROTECTION MODE PROGRAMMING Program MRI conditional device to MRI Safe Mode. Patients who require pacing support, MRI pacing mode must be set to DOO, AOO, or VOO 10-15 beats per minute higher than the patient's intrinsic rhythm to prevent competitive pacing. If (Implantable Cardiac Defibrillator), ensure tachy therapies are disabled. POST MRI Return device to pre-MRI settings (including tachy therapy, if applicable). Check the pacing capture threshold to ensure a proper safety margin. Printed verification that the device is programmed to Pro[employer] and this signed order form documents that this patient and their system are prepared for the MRI scan. /amando/ DOV TELLES physician embroidery assistant Signed: 06/17/2024 08:18 DOV TELLES-MARÍA [facility]
--- OUTSIDE RECORDS SUMMARY | 2024-07-14 06:46 | XMS_ITS | Encounter Summary ---
Author Name [facility] [place] Organization [facility] [place] Address [address] [place] [id number] Care Team Providers Care Reproduction Artist Name Role Phone JOSUE OJOENEDINA Primary Care Provider Eriaka MARTHA Luis Primary Care Provider Unavailabl e [...] Policy [place] MEDICARE (WNR) MEDICARE (M) PART B May 30, 2024 PART B [id number] WIGGLESWO RTH,STEWA RT PATIENT MEDICARE (WNR) MEDICARE (M) PART A May 30, 2024 PART A [id number] WIGGLESWO RTH,STEWA RT PATIENT [facility] 2017 SELEC T RETIR ED May 16, 2018 [facility] [id number] [phone] WIGGLESWO RTH,STEWA RT PATIENT [facility] 2018 [employer] A Apr 01, 2017 DODA [id number] WIGGLESWO RTH,STEWA RT PATIENT [facility] 2024 PRIME RETIR ED Apr 01, 2024 [facility] [id number] [phone] WIGGLESWO RTH,EDGARDKole RT PATIENT Selected Encounter This section includes the information on record at [place] for the Encounter. Date/Time Encounter Type Encounter Description Reason Provider Source Jul 09, 2024 09:54 AM MTMS BY ORACIO SMART 15 MIN TELEPHONE/ANCILLA JORDEN ICD-10-CM I42.9 Cardiomyopathy, unspecified DEJA,PHAM E IHE Encounter Template Text not used by [place] Assessments - Encounter Diagnoses This section includes the primary and secondary diagnoses documented for the Encounter. Date/Time Primary/Secondary Diagnosis Diagnosis Name Provider Source Jul 09, 2024 09:54 AM PRIMARY Cardiomyopathy, unspecified DEJA,[facility]AM E [facility] [place] [facility] Plan of Treatment: Future Appointments (+ 6 months) and Future Tests (+/- 45 days) The Plan of Treatment section includes future care activities for the patient from all [place] treatmentfacilities. This section includes future appointments and future orders which are active, pending or scheduled. Future Appointments This section includes appointments that were scheduled to occur 6 months from the date of the Encounter, up to a maximum of 20 appointments. The data comes from all [facility]. Appointment Date/Time Appointment Type Appointme nt Facility Name Jul 15, 2024 09:00 AM [place]ATORY - [place] Jul 27, 2024 08:00 AM AMBULATORY - SURGERY [place] Jul 29, 2024 01:00 PM AMBULATORY - MEDICINE [facility] August 03, 2024 07:00 AM [facility] - NONE [place] [facility] Sep 23, 2024 10:00 AM AMBULATORY - MEDICINE [facility] Nov 03, 2024 09:40 AM AMBULATORY - SURGERY [place] [facility] Active, Pending, and Scheduled Orders This section includes a listing of several types of active, pending, and scheduled orders, including clinic medications orders, diagnostic test orders, procedure orders and consult orders; where the start date of the order is 45 days before the date of the Encounter or 45 days after the date of theEncounter. The data comes from all [facility]. Test Date/Time Test Type Test Details Facility Name Jun 26, 2024 09:07 AM Consult Order PAIN CLINI C ANESTHESIOLOGY/PAIN CD OUTPATIENT Cons Pattern Perforating Machine Operator's Choice [facility] Jul 15, 2024 12:00 AM Imaging - Ultrasou nd Order FNA BX W/ ULTRASND GDN,1ST LESION [facility] Radiology Reports: +/- 30 days of the [...] the Encounter. The data comes from all [place] treatment facilities. Date/Time Radiology Report Provider Source Jun 29, 2024 12:58 PM U/S THYROID: RAULKATE [id number] -[id number] M Exm Date: JUN 29, 2024@12:58 Req Phys: MARTHA HENLEY Pat Loc: X-RAY/MRI/DOROTHEA/NC (Req'g Loc Img Loc: ULTRASOUND Service: [place] [address] (Case [id number] COMPLETE) U/S THYROID (US Detailed) CPT:76102 Reason for Study: SEE CLINICAL HISTORY Clinical History: REASON FOR EXAM:Nodule/Lesion follow up PERTINENT PATIENT HISTORY: PROVIDER ExtPager# Report Status: Verified Date Reported: JUN 30, 2024 Date Verified: JUN 30, 2024 Piler E-Sig: Report: EXAMINATION: THYROID ULTRASOUND CLINICAL INDICATIONS: [...] Interpreting Staff: CHIN CASTILLO, Radiologist Verified by flour broker for CHIN CASTILLO /CHIN LEES-CDD [facility] Jun 17, 2024 08:36 AM MRI C SPINE W/O CO NTRAST: KATE CARTER [id number] -[id number] M Exm Date: JUN 17, 2024@08:36 Req Phys: MARTHA HENLEY Loc: XIOMY PACT JACI 1-2 (Req'g Lo Img Loc: MAGNETIC [facility] IMAGING Service: [place] [address] (Case [id number] COMPLETE) MRI C SPINE W/O CONTRAST (MRI Detailed) CPT:49627 Reason for Study: SEE CLINICAL HISTORY Clinical History: STATUS OF PLAIN FILMS:Done, exam date/impression above. MRI Screening (Required): IMPLANTED DEVICE DOCUMENTATION 03/11/2024 09:29 Local Title: IMPLANTED CARDIAC DEVICE Standard Title: CLINICAL WARNING Patient has an Implanted Cardiac Device. 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 RA lead - [employer], model [id number], SN [id number]. RV lead - [employer], model [id number], SN [id number]. LV - [employer], model [id number], SN [id number]. Parameters: RA - threshold - 0.25v@0.5ms, 460 ohms, sensing - >5mV RV - threshold - 0.25v@0.5ms, 640 ohms, sensing - >12mV LV - threshold - 1.25v@0.5ms, 700 ohms. DFT's - were not assessed. Shock coil impedance - 73 ohms. Implant 03/10/2024 Dr. Mckinney Signed by: /es/ RUTHANN BARONE RN 03/11/2024 09:32 Does the [place] have any Cardiac Implants? ICD Does the have any implanted stimulators? None Does the [place] have cochlear implants? No Does the [place] have Cerebral aneurysm clip(s)? No Does the have any shrapnel? No If yes, where in your body? Please list other implants not listed above: MRI table has a weight limit of 551 lbs. [place]'s Weight: *198 lb [89.81 kg] (03/16/2024 10:02) Is this patient claustrophobic?: No REASON FOR EXAM: OTHER (provide detailed justification for your request) PERTINENT PATIENT HISTORY: Cervical radiculopathy Risk factors for GADOLINIUM NEPHROGENIC SYSTEMIC SCLEROSIS: Report Status: Verified Date Reported: JUN 17, 2024 Date Verified: JUN 17, 2024 Piler E-Sig: Report: KATE PAVON RAUL 1960 EXAM: [...] Staff: FATUMA GARCIA, Staff Physician Verified by flour broker for FATUMA GARCIA [facility] Encounter Notes: All associated encounter notes This section contains the clinical notes associated to the Encounter. Date/Time Encounter Note(s) Provider Source Jul 09, 2024 09:54 AM PHARMACY TELEPHONE ENCOUNTER NOTE: LOCAL TITLE: CARDIOLOGY PHARMACOTHERAPY TELEPHONE NOTE STANDARD TITLE: PHARMACY TELEPHONE ENCOUNTER NOTE DATE OF NOTE: JUL 09, 2024@09:54 ENTRY DATE: JUL 09, 2024@09:54:11 AUTHOR: PHAM SHORT COSIGNER: URGENCY: STATUS: COMPLETED Spoke with KATE CARTER a 64 yo on phone to review HF management. [place] reports his breathing has been good and denies recent changes. denies edema, PND. reports he uses 1 pillow under his head with head of bed raised a couple inches to help breathing d/t sinuses and for comfort, although he states he is able to lay flat on the couch w/o issue. [place] previously stated he has had his bed this way for about 10 years. denies dizziness. [place] states he has not needed furosemide. Allergies: VANCOMYCIN, GABAPENTIN, PREGABALIN, SIMVASTATIN, ROSUVASTATIN Per 09/25/23 Cardiology Clinic Note: PMH: 1. CAD, Left heart catheterization ([facility]) - February 01, 2023 showed FENCE POST CUTTER of mid LAD treated 3.5 x 38 and 3.0 x 38 Xience GT, postdilated 4.0 and 3.5 NC trek charo-respectively. Nonflow-limiting RCA disease. LVEF 30% with anterior wall motion abnormality. No personal h/o CT. 2. HTN 3. DM2, diagnosed in 2004 4. Hyperlipidemia SH: EtOH: denies Tobacco Use: denies Exercise: cardiac rehab MWF Diet: Breakfast: 3 egg omlette w/spinach, broccoli, tomatoes, onion, cheese; occasionally meat (filet mignon); home canned salsa Lunch: apple Dinner: salad, salmon, brisket, burrito Snacks: apples, nuts Additional Salt Intake: does not add Fluid Intake: water, green tea, coffee Restaurant Meals: 1x/week Home BP Log: Takes Medications 5a/5p; Checks BP 7a/7-8p Date BP HR Weight / 116/77 81 196.4 108/72 68 4/2 124/79 72 198 108/68 82 4/3 120/74 77 199 121/71 85 4/4 103/69 82 199.2 116/66 82 4/5 120/77 81 201.6 124/74 76 4/6 120/81 81 200.4 116/69 72 4/ 116/81 84 201.2 125/75 69 4/8 113/79 82 198.4 100/69 81 / 112/65 83 201.2 122/77 92 07/09 127/72 88 199.8 PREVIOUS ENCOUNTER 06/29/24: Date BP HR Weight 06/15 116/79 77 196.2 115/70 87 06/16 124/83 88 194.6 107/67 76 06/17 100/63 83 197.6 110/62 81 06/18 124/77 79 200.2 112/68 73 06/19 122/80 78 199.2 121/74 79 06/20 140/83 80 200.6 124/83 71 06/21 122/74 83 197 117/74 69 06/22 107/75 88 195.6 125/78 72 06/23 110/80 86 195.2 106/72 74 06/24 108/81 88 196.6 109/54 74 06/25 129/79 79 196.6 106/66 68 06/26 114/80 83 196.2 118/68 73 06/27 124/80 78 198.2 111/76 77 06/28 125/79 75 199.2 100/61 72 06/29 115/79 78 198.4 05/28/24: Date BP HR Weight 05/17 110/79 78 193.8 120/73 78 05/18 116/75 72 195.2 116/73 64 05/19 118/76 72 193.4 103/66 62 05/20 113/74 78 194.6 112/69 72 05/21 117/72 88 195.6 113/78 70 05/22 119/71 81 193.2 115/72 73 05/23 128/75 80 194.4 116/71 80 05/24 123/73 80 194.4 105/71 79 05/25 121/79 78 196.2 121/71 69 05/26 124/85 81 197 124/71 71 05/27 124/76 77 196.6 05/28 125/82 88 194.8 04/09/24: Date BP HR Weight 04/01 112/85 79 196.2 121/74 66 1 122/72 78 194.8 106/74 72 04/03 116/70 79 194 116/68 82 04/04 117/82 89 195.4 109/66 81 04/05 113/77 78 195.6 132/79 76 04/06 127/81 77 197 112/72 72 04/07 119/74 75 194.6 116/71 73 04/08 128/81 84 195.6 120/76 77 04/09 110/79 88 194.4 OBJECTIVE FINDINGS: Vitals/Labs: BP: 125/80 (06/26/2024 08:07) Pulse: 79 (06/26/2024 08:07) Weight: 194.0 lb [88.00 kg] (06/26/2024 08:07) BODY MASS INDEX - 26.4 LABS: PANEL 1 [place]. date GLUCOSE BUN CREAT SODIUM K CHLOR CO2 05/05/24 08:58 186 H 29 H 1.34 H 137 4.3 105 23 03/23/24 09:13 169 H 26 H 1.34 H 138 4.9 100 28 03/10/24 08:52 137 H 28 H 1.36 H 136 4.5 104 28 Collection DT Specimen Test Name Result Units Ref Range 03/23/2024 09:13 PLASMA!! CHOLESTEROL 161 mg/dL 0 - 199 03/23/2024 09:13 PLASMA!! TRIGLYCERIDE 156 H mg/dL 0 - 149 03/23/2024 09:13 PLASMA!! HDL CHOLESTEROL 58 mg/dL 40 - 69 03/23/2024 09:13 PLASMA!! DIRECT LDL CHOL. 100 mg/dL 0 - 100 !! Indicates COMMENTS AVAILABLE...Refer to Interim Lab Report. ECHO - NONE FOUND Active and Recently Outpatient Medications (excluding Supplies): Active Outpatient Medications Status 1) ACCU-CHEK GUIDE (GLUCOSE) TEST STRIP USE 1 STRIP TO TEST ACTIVE BLOOD SUGAR DIRECTED 2) ACETAMINOPHEN 325MG TAB TAKE TWO TABLETS BY MOUTH THREE ACTIVE TIMES A DAY NEEDED DO NOT TAKE MORE THAN 12 TABLETS PER DAY Indication: FOR PAIN 3) ASPIRIN 81MG EC TAB TAKE ONE TABLET BY MOUTH DAILY ACTIVE Indication: FOR HEART 4) CHOLECALCIF 25MCG (D3-1,000UNIT) TAB TAKE ONE TABLET BY ACTIVE MOUTH DAILY FOR VITAMIN D SUPPLEMENT 5) EMPAGLIFLOZIN 10MG TAB TAKE ONE TABLET BY MOUTH EVERY ACTIVE MORNING Indication: FOR HEART FAILURE 6) EZETIMIBE 10MG TAB TAKE ONE TABLET BY MOUTH EVERY EVENING ACTIVE Indication: FOR CHOLESTEROL 7) FLUTICASONE PROP 50MCG 120D NASAL INHL USE 1 SPRAY IN EACH ACTIVE (S) NOSTRIL DAILY FOR NASAL ALLERGY 8) FUROSEMIDE 20MG TAB TAKE ONE TABLET BY MOUTH DAILY NEEDED ACTIVE FOR WEIGHT GAIN OF 3 POUNDS IN 24 HOURS OR 5 POUNDS IN 1 WEEK Indication: FOR FLUID 9) GLIPIZIDE 10MG TAB TAKE ONE TABLET BY MOUTH TWICE A DAY ACTIVE (S) Indication: FOR BLOOD SUGAR 10) GLUCOSE 4GM CHEW TAB CHEW 4 TABLETS (16 GRAMS OF CARBS) BY ACTIVE (S) MOUTH DIRECTED Indication: FOR LOW BLOOD SUGAR 11) INSULIN,GLARGINE 100 UNT/ML 3ML SOLOSTAR INJECT 20 UNITS ACTIVE UNDER THE SKIN DAILY -DISCARD PEN AFTER 28 DAYS OF USE. REPLACES GLARGINE-YFGN Indication: FOR BLOOD SUGAR 12) LATANOPROST 0.005% OPH SOLN PUT 1 DROP IN BOTH EYES AT ACTIVE BEDTIME Indication: FOR GLAUCOMA 13) METFORMIN HCL 500MG 24HR SA TAB TAKE TWO TABLETS BY MOUTH ACTIVE (S) TWICE A DAY FOR DIABETES 14) METOPROLOL SUCCINATE 100MG SA TAB TAKE ONE AND ONE-HALF ACTIVE TABLETS BY MOUTH DAILY Indication: FOR HEART 15) MULTIVIT/OPHTH AREDS2/LUTE/ZEAX CAP/TAB TAKE 1 SOFTGEL BY ACTIVE MOUTH TWICE A DAY AFTER MEALS FOR EYE HEALTH 16) OMEPRAZOLE 20MG EC CAP TAKE ONE CAPSULE BY MOUTH TWICE A DAY ACTIVE FOR STOMACH. TAKE ON AN EMPTY STOMACH 17) ROSUVASTATIN CA 40MG TAB TAKE ONE TABLET BY MOUTH DAILY ACTIVE Indication: FOR CHOLESTEROL 18) SACUBITRIL 97MG/VALSARTAN 103MG TAB TAKE 1 TABLET BY MOUTH ACTIVE TWICE A DAY Indication: FOR HEART FAILURE 19) SPIRONOLACTONE 25MG TAB TAKE ONE TABLET BY MOUTH DAILY ACTIVE Indication: FOR HEART FAILURE Inactive Outpatient Medications Status 1) CLOPIDOGREL BISULFATE 75MG TAB TAKE ONE TABLET BY MOUTH DAILY Indication: TO THIN BLOOD 2) LATANOPROST 0.005% OPH SOLN PUT 1 DROP IN BOTH EYES AT BEDTIME Indication: FOR GLAUCOMA Active Non-VA Medications Status 1) Non-VA ASCORBIC ACID 500MG TAB 1000MG MOUTH DAILY ACTIVE 2) Non-VA CENTRUM SILVER TABLET 1 TABLET MOUTH DAILY ACTIVE 3) Non-VA COENZYME Q10 CAP/TAB 1 CAP/TAB MOUTH DAILY ACTIVE 4) Non-VA MAGNESIUM OXIDE 420MG TAB 840MG MOUTH DAILY ACTIVE 25 Total Medications A/P: HFrEF: 's weight had trended up, likely d/t diet but is trending back down and denies s/sx of fluid overload. Reviewed appropriate diuretic plan with . [place]'s BP/HR fairly well controlled at this time. No changes at this time as previous discussions with Dr. Nguyen holding off on further BB titration. Refills: none Medication Plan: Empagliflozin 10mg qAM Metoprolol Succinate 150mg daily Spironolactone 25mg daily Sacubitril 97mg/Valsartan 103mg BID Furosemide 20mg PRN weight gain of 3lbs in 24 hours or 5lbs in 1 week F/U: via telephone in ~2 weeks verbalized understanding of above and agreed to call if issues arise. Time spent on phone with : 12 min PBM PharmD Pharmacotherapy Rem V12: PHARMACIST INTERVENTIONS: HEART FAILURE Medication monitoring, no dosage change required, continue to monitor and assess /es/ PHAM SHORT PHARMD, BCACP Clinical Preparing Box Tender Signed: 07/09/2024 16:24 PHAM SHORT-MARÍA [facility]
--- OUTSIDE RECORDS SUMMARY | 2024-07-14 06:46 | XMS_ITS ---
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 Name Role Phone JOSUE JOOENEDINA Primary Care Provider Unavaila MARTHA Luis Primary [...] PART B May 30, 2024 PART B [id number] WIGGLESWO RTH,STEWA RT PATIENT MEDICARE (WNR) MEDICARE (M) PART A May 30, 2024 PART A [id number] [id number] WIGGLESWO RTH,STEWA RT PATIENT [facility] 2017 SELEC T RETIR ED May 16, 2018 SELECT RETIRED [id number] [phone] WIGGLESWO RTH,STEWA RT PATIENT [facility] 2017 PRIME GROUP A Apr 01, 2017 DODA [id number] WIGGLESWO RTH,STEWA RT PATIENT [facility] 2024 PRIME RETIR ED Apr 01, 2024 PRIME RETIRED [id number] [phone] WIGGLESWO RTH,AMY RT PATIENT Selected Encounter This section includes the information on record at [place] for the Encounter. Date/Time Encounter Type Encounter Description Reason Provider Source Mar 10, 2024 10:00 AM OFFICE O/P EST MOD 30 MIN CARDIAC CATHETERIZATION ICD-10-CM I25.5 Ischemic cardiomyopathy FELIBERTO [place] Encounter Template Text not used by [place] Assessments - Encounter Diagnoses This section includes the primary and secondary diagnoses documented for the Encounter. Date/Time Primary/Secondary Diagnosis Diagnosis Name Provider Source Mar 11, 2024 03:46 PM PRIMARY Ischemic cardiomyopathy HYUN [place]IE [place] Mar 11, 2024 03:46 PM SECONDARY Left bundle-branch block, unspecified ZAIRAHYUN SRCASIE [place] Plan of Treatment: Future Appointments (+ 6 months) and Future Tests (+/- 45 days) The Plan of Treatment section includes future care activities for the patient from all [place] [facility]. This section includes future appointments and future orders which are active, pending or scheduled. Future Appointments This section includes appointments that were scheduled to occur 6 months from the date of the Encounter, up to a maximum of 20 appointments. The data comes from all [place] treatment facilities. Appointment Date/Time Appointment Type Appointme nt Facility Name Mar 16, 2024 10:30 AM AM[place]ATORY - NONE [place] [facility] Mar 23, 2024 10:00 AM AMBULATORY - MEDICINE [place] [facility] Apr 08, 2024 08:15 AM AMBULATORY - MEDICINE [place] [facility] Apr 16, 2024 01:30 PM AMBULATORY - NONE [place] [facility] Apr 16, 2024 02:15 PM AMBULATORY - NONE [place] [facility] May 05, 2024 09:40 AM AMBULATORY - SURGERY [place] [facility] Jun 03, 2024 10:00 AM AMB[facility]ATORY - NONE [place] [facility] Jun 05, 2024 09:30 AM [facility]ORY - NONE [place] [facility] Jun 17, 2024 08:00 AM [facility] Jun 17, 2024 09:00 AM [facility] [facility] Jun 25, 2024 08:00 AM AMBULATORY - MEDICINE [place] NGTON [facility] Jun 26, 2024 08:20 AM AMBULATORY - SURGERY VIVEK MONTGOMERY [facility] Jun 29, 2024 01:30 PM AMBULATORY - NONE [place] N[facility]n [facility] Jul 15, 2024 09:00 AM AMBULATORY - NONE [place] Jul 27, 2024 08:00 AM AMBULATORY - SURGERY XIOMYIN ULISES-D [facility] Jul 29, 2024 01:00 PM AMBULATORY - MEDICINE [place] HAMM [facility] August 03, 2024 07:00 AM AMBULATORY - NONE [place] Nguy[facility]n [facility] Lab Results: +/- 30 days of the encounter This section includes the Chemistry and Hematology Lab Results on record with [facility] for the patient. Radiology Reports and Pathology Reports are provided separately, in subsequent sections. Lab Results This section contains the Chemistry/Hematology Results that were resulted 30 days before or 30 daysafter the date of the Encounter. Date/Time Source Result Type Result - Unit Interpretation Reference Range Specimen Type Comment Mar 23, 2024 09:13 AM [facility] N HBSAB SERUM Specimen Type: SERUM Comment: FOR HBSAB [...] Mar 16, 2024 11:01 AM Reporting Lab: [address] [address] Performing Lab: [address] [address] HBSAB Nonreactive Nonreactive Mar 23, 2024 09:13 AM [facility] HBSAG S JOSE Specimen Type: SERUM Comment: FOR [...] Mar 16, 2024 11:01 AM Reporting Lab: [address] [address] Performing Lab: [address] [address] HBSAG Nonreactive Nonreactive Mar 23, 2024 09:13 AM [facility] GLYCOHEMOGLOBIN BLOOD Specimen Type: BLOOD Comment: [place] guidelines for A1c interpretation: Glycemic control targets are based on Shared Decision Making between clinicians and patients. Criteria used to establish an A1c target recommendation can be found at https://www.va.gov/qualityandpatientsafety/ and include the use of result accuracy [...] 8.73 and 9.27. Ref: https://ngsp.org/CAPdata.asp. The in-house Polyera-HiringSolved D-100 analyzer has a historical CV <= 2%. Contact the laboratory for further performance characteristics of this assay. Ordering Provider: MARTHA HENLEY Report Released Date/Time: Mar 16, 2024 11:01 AM Reporting Lab: [address] [address] Performing Lab: [address] [address] GLYCOHEMOGLOBIN 8.2 H 4.4-6.4 Mar 23, 2024 09:13 AM [facility] PSA S JOSE Specimen Type: SERUM No comment entered. Ordering Provider: MARTHA HENLEY Report Released Date/Time: Mar 16, 2024 11:01 AM Reporting Lab: [address] [address] Performing Lab: [address] [address] PSA 1.538 ng/mL 0-3.999 Mar 23, 2024 09:13 AM [facility] LIPID PROFILE PLASMA Specimen Type: PLASMA [...] Mar 16, 2024 11:01 AM Reporting Lab: [address] [address] Performing Lab: [address] [address] CHOLESTEROL 161 mg/dL 0-199 TRIGLYCERIDE 156 mg/dL H 0-149 HDL CHOLESTEROL 58 mg/dL 40-69 DIRECT LDL CHOL. 100 mg/dL 0-100 Mar 23, 2024 09:13 AM [facility] TSH PLASMA Specimen Type: PLASM A Comment: Estimated [...] Mar 16, 2024 11:01 AM Reporting Lab: [address] [address] Performing Lab: [address] [address] TSH 1.8877 m[IU]/mL 0.3500-4.9400 Mar 23, 2024 09:13 [facility] B12 VITAMIN PLASMA Specimen Type: PLASM A [...] Mar 16, 2024 11:01 AM Reporting Lab: [address] [address] Performing Lab: [address] [address] B12 VITAMIN 518 pg/mL 213-816 Mar 23, 2024 09:13 AM [facility] 25-OH VITAMIN D SERUM Specime n Type: [...] Mar 16, 2024 11:01 AM Reporting Lab: [address] [address] Performing Lab: [address] [address] 25-OH VITAMIN D 51.2 ng/mL H 20.0-50.0 Mar 23, 2024 09:13 AM [facility] CBC/PLT BLOOD Specimen Type: BLOOD No comment entered. Ordering Provider: MARTHA HENLEY Report Released Date/Time: Mar 16, 2024 11:01 AM Reporting Lab: [address] [address] Performing Lab: [address] [address] WBC 6.5 10*3/uL 5.0-10.0 RBC 5.22 10*6/uL 4.6-6.2 HGB 14.3 g/dL 14.0-18.0 HCT 45.6 42.0-52.0 MCV 87.4 fL 80.0-94.0 MCH 27.4 pg 27.0-31.0 MCHC 31.4 g/dL L 32.0-36.0 PLT 180 10*3/uL 150-450 MPV 9.5 fL 9.0-13.1 RDW 15.6 11.0-16.0 NRBC 0.0 0.0-0.0 Mar 23, 2024 09:13 AM [facility] PANEL 5 PLASMA Specimen Type: PLASMA [...] Mar 16, 2024 11:01 AM Reporting Lab: [place] [address] Performing Lab: [place] [address] CREATININE 1.34 mg/dL H 0.72-1.25 UREA NITROGEN [...] 67 U/L 40-150 eGFR (CKD-EPI) 59 Mar 11, 2024 06:10 AM [facility] GLUCOSE-HAND MONITOR CAPILLARY Specime n Type: CAPILLARY Comment: Test performed by: [id number] Meter #: [id number] Ordering Provider: FELIBERTO MCKINNEY Report Released Date/Time: Mar 11, 2024 06:27 AM Reporting Lab: [place] [id number] Performing Lab: [place] [phone] GLUCOSE-HAND MONITOR 170 mg/dL H 71-99 Mar 10, 2024 08:59 PM [facility] GLUCOSE-HAND MONITOR CAPILLARY Specime n Type: CAPILLARY Comment: Test performed by: [id number] Meter #: [id number] Ordering Provider: FELIBERTO MCKINNEY Report Released Date/Time: Mar 10, 2024 09:52 PM Reporting Lab: [address] [place] [address] Performing Lab: [address] [address] GLUCOSE-HAND MONITOR 260 mg/dL H Mar 10, 2024 05:47 PM [facility] GLUCOSE-HAND MONITOR CAPILLARY Specime n Type: CAPILLARY Comment: Test performed by: [id number] Meter #: [id number] Ordering Provider: FELIBERTO MCKINNEY Report Released Date/Time: Mar 10, 2024 11:25 PM Reporting Lab: [address] [address] Performing Lab: [address] [address] GLUCOSE-HAND MONITOR 299 mg/dL H Mar 10, 2024 10:36 AM [facility] MRSA SURVL NARES DNA NARES Specime [...] not indicate eradication success. Ordering Provider: FELIBERTO MCKINNEY Report Released Date/Time: Mar 05, 2024 10:58 AM Reporting Lab: [address] [address] Performing Lab: [address] [address] MRSA SURVL NARES DNA Negative Negative Mar 10, 2024 08:52 AM [facility] PANEL 1 PLASMA Specimen Type: PLASM [...] <15 G5 Kidney failure Ordering Provider: FELIBERTO MCKINNEY Report Released Date/Time: Mar 05, 2024 10:58 AM Reporting Lab: [address] [address] Performing Lab: [address] [address] CREATININE 1.36 mg/dL H 0.72-1.25 UREA NITROGEN 28 mg/dL H 9-25 GLUCOSE 137 mg/dL H 74-100 SODIUM 136 mmol/L 136-145 POTASSIUM 4.5 mmol/L 3.5-5.1 CHLORIDE 104 mmol/L 98-107 CO2 28 mmol/L 22-29 CALCIUM 10.0 mg/dL 8.4-10.2 ANION GAP 4 meq/L 3-19 eGFR (CKD-EPI) 58 Mar 10, 2024 08:51 AM [facility] CBC/PLT BLOOD Specimen Type: BLOOD No comment entered. Ordering Provider: FELIBERTO MCKINNEY Report Released Date/Time: Mar 05, 2024 10:58 AM Reporting Lab: [address] [address] Performing Lab: [address] [address] WBC 5.6 10*3/uL 5.0-10.0 RBC 4.87 10*6/uL 4.6-6.2 HGB 13.7 g/dL L 14.0-18.0 HCT 42.8 42.0-52.0 MCV 87.9 fL 80.0-94.0 MCH 28.1 pg 27.0-31.0 MCHC 32.0 g/dL 32.0-36.0 PLT 159 10*3/uL 150-450 MPV 9.3 fL 9.0-13.1 RDW 16.5 H 11.0-16.0 NRBC 0.0 0.0-0.0 Vital Signs: All taken on the encounter date This section contains inpatient and outpatient Vital Signs collected on the date of the Encounter. Date/Time Temperature Pulse Blood Pressure Respiratory Rate SP02 Pain Height Weight Body Mass Index Source Mar 10, 2024 10:03 PM 99.3 77 137/87 16 94 5 [place] Mar 10, 2024 08:36 PM 0 [place] Mar 10, 2024 06:50 PM 83 135/81 90 [place] Mar 10, 2024 06:10 PM 0 [place] Mar 10, 2024 06:03 PM 0 [place] Radiology Reports: +/- 30 days [...] the Encounter. The data comes from all [facility] facilities. Date/Time Radiology Report Provider Source Mar 11, 2024 04:50 AM CHEST SINGLE(1) EW: KATE CARTER [id number] -1960 M Exm Date: MAR 11, 2024@04:50 Req Phys: DOV TELLES Loc: 5-OBM/TEL/03-11-2024@08:53 Img Loc: CDD RADIOLOGY Service: [place] [address] (Case [id number] COMPLETE)CHEST SINGLE(1) VIEW (RAD Detailed) CPT:84423 Proc Modifiers : PORTABLE EXAM Reason for Study: POST EPS PROCEDURE Clinical History: Rule out PTX s/p BiV ICD Report Status: Verified Date Reported: MAR 11, 2024 Date Verified: MAR 11, 2024 Technical Service Rep E-Sig: Report: EXAMINATION: SINGLE VIEW CHEST CLINICAL [...] NO ALERT REQUIRED Primary Interpreting Staff: CHIN CASTILLO, Radiologist Verified by detective bowling alley for CHIN CASTILLO /CHIN LEES-[place] [facility] Mar 10, 2024 07:46 AM FOURDRINIER WIRE WEAVER - FLUORO UP TO 1 HOUR: KATE CARTER [id number] -1960 M Exm Date: MAR 10, 2024@07:46 Req Phys: FELIBERTO MCKINNEY Loc: CARDIAC CATH/OPT/CDD (Req'g Lo Img Loc: ANGIO/NEURO/INTERVENTIONAL Service: [place] [address] (Case [id number] COMPLETE) FOURDRINIER WIRE WEAVER - FLUORO UP TO 1 HOUR (ANI Detailed) CPT:94693 Reason for Study: BI-V-ICD Clinical History: BI-V-ICD Report Status: Verified Date Reported: Date Verified: MAR 10, 2024 Technical Service Rep E-Sig: Report: See Impression Impression: Recreational Director imaging capture for storage. Please see CPRS Recreational Director consults and notes in CPRS for final reporting and exam documentation. Primary Diagnostic Code: Primary Interpreting Staff: PHYS OTHER THAN [place] [facility], Staff Physician Verified by detective bowling alley for PHYS OTHER THAN [place] [facility] /[facility] RADIOLOGIST,PHYS OTHER THAN [facility] Encounter Notes: All associated encounter notes This section contains the clinical notes associated to the Encounter. Date/Time Encounter Note(s) Provider Source Mar 13, 2024 03:16 PM NURSING TELEPHONE ENCOUNTER NOTE: LOCAL TITLE: OUTPATIENT POST PROCEDURE CALL NOTE STANDARD TITLE: NURSING TELEPHONE ENCOUNTER NOTE DATE OF NOTE: MAR 13, 2024@15:16 ENTRY DATE: MAR 13, 2024@15:16:47 AUTHOR: COLIN MULLEN EXP COSIGNER: URGENCY: STATUS: COMPLETED Cardiac Recreational Director I was able to contact post procedure and he/she denies complaints of fever, pain, bleeding, or discomfort. [place] was advised at the time of the call, if he/she develops a fever > 100.4, redness, drainage, swelling, or a hard knot at the site to contact telephone care at [phone]. Telephone Care This phone call was ONLY a courtesy call to check on the [place] post procedure. If has post procedure complications (fever, pain, bleeding, or discomfort) please direct to Telephone Triage for immediate care. Thank you. If the has non-emergent post procedure questions, please triage and alert specialty onsite case manager for follow up. /amando/ COLIN MULLEN Registered Nurse Signed: 03/13/2024 15:17 [facility] Mar 11, 2024 07:31 AM CARDIOLOGY PROCEDU RE NOTE: LOCAL TITLE: CP CARDIAC CATH NOTE STANDARD TITLE: CARDIOLOGY PROCEDURE NOTE DATE OF NOTE: MAR 11, 2024@07:31:01 ENTRY DATE: MAR 11, 2024@07:31:01 AUTHOR: CLINICAL,DEVICE PRO EXP COSIGNER: URGENCY: STATUS: COMPLETED PROCEDURE SUMMARY CODE: Machine Resulted DATE/TIME PERFORMED: MAR 10, 2024@09:43:3 DOCUMENT IN VISTA IMAGING SEE FULL REPORT IN VISTA IMAGING SIGNATURE NOT REQUIRED SEE SIGNATURE IN VISTA IMAGING (CP CATH OUTPT) AUTO-INSTRUMENT DIAGNOSIS Procedure: CATH CATH [place] [facility] Cardiac Catheterization/EP Lab [address] [place]. [address] Supplies Summary Time Size Flap Maker Item Serial Lot Part Billing Comment Name Number Number Number Code (Model) 10:17 AM [employer] Pacemak VAML02- [id number] Pack -07 10:17 AM 3M ScatPad SAFA 302 10:17 AM Coviden Bovie pad E7507 10:18 AM CORDIS Short 504-605 Sheath X 5FR 11cm 11:56 AM 22in TIDI Products Dome CFI-821 Bag 22in Depth 11:56 AM Zoll Medical Zoll 8900-40 Radioluce 06 nt Pro- Padz - R2 pads 11:57 AM 6F x Arrow Balloon [id number] 110c Wedge m Pressure Catheter 6F 12:55 PM Ardon WHIPSE [id number] R MS H 0.014 X 190 CM 12:55 PM Ardon WHIPSE [id number] R MS H 0.014 X 190 CM Patient Name: KATE CARTER Study Date: 03/10/2024 Admission ID: [id number] Page 1 of 2 [facility] Cardiac Catheterization/EP Lab [address] [place] [address]. 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 [place] FINDING/DIAGNOSIS (PER MD): See Cardiology Note ESTIMATED BLOOD LOSS: Minimal SPECIMENS REMOVED: None IV Sedation: Fentanyl 25 mcg, Versed 1 mg, Benadryl 25 mg SITE APPEARANCE: No swelling or bruising Closure: Sutures, [place], Aquacel Bedrest: Per Moderate Sedation Protocol POST PROCEDURE PULSE ASSESSMENT: Radial: Palpable COMPLICATIONS: None PROCEDURE START TIME: 1149 PROCEDURE STOP TIME: 1308 /es/ COLIN MULLEN Registered Nurse Signed: 03/10/2024 14:53 COLIN MULLEN [facility] Mar 10, 2024 01:30 PM CARDIOLOGY PROCEDU RE NOTE: LOCAL TITLE: CP CARDIAC CATH NOTE STANDARD TITLE: CARDIOLOGY PROCEDURE NOTE DATE OF NOTE: MAR 10, 2024@13:30:45 ENTRY DATE: MAR 10, 2024@13:30:45 AUTHOR: CLINICAL,DEVICE PRO EXP COSIGNER: URGENCY: STATUS: COMPLETED PROCEDURE SUMMARY CODE: Machine Resulted DATE/TIME PERFORMED: MAR 10, 2024@09:43:3 DOCUMENT IN VISTA IMAGING SEE FULL REPORT IN VISTA IMAGING SIGNATURE NOT REQUIRED SEE SIGNATURE IN VISTA IMAGING (CP CATH OUTPT) AUTO-INSTRUMENT DIAGNOSIS Procedure: CATH CATH [facility] Cardiac Catheterization/EP Lab [address] [place] [address]. [id number] Supplies Summary Time Size Flap Maker Item Serial Lot Part Billing Comment Name Number Number Number Code (Model) 10:17 AM [employer] Pacemak VAML02- [id number] Pack -07 10:17 AM 3M ScatPad SAFA 302 10:17 AM Coviden Bovie pad E7507 10:18 AM CORDIS Short 504-605 Sheath X 5FR 11cm 11:56 AM 22in TIDI Products Dome CFI-821 Bag 22in Depth 11:56 AM Zoll Medical Zoll 8900-40 Radioluce 06 nt Pro- Padz - R2 pads 11:57 AM 6F x Arrow Balloon [id number] 110c Wedge m Pressure Catheter 6F 12:55 PM Ardon WHIPSE [id number] R MS H 0.014 X 190 CM 12:55 PM Ardon WHIPSE [id number] R MS H 0.014 X 190 CM Patient Name: KATE CARTER Study Date: 03/10/2024 Admission ID: [id number] Page 1 of 2 [facility] Cardiac Catheterization/EP Lab [address] [place] [address]. [id number] Patient Name: KATE CARTER Study Date: 03/10/2024 Admission ID: [id number] Page 2 of 2 Administrative Closure: 03/10/2024 by: DEVICE PROXY SERVICE CLINICAL CLINICAL,DEVICE PROXY SERVICE CLINICAL,DEVICE PROXY SERVICE [facility] Mar 10, 2024 01:16 PM CARDIOLOGY PROCEDU RE NOTE: LOCAL TITLE: CP CARDIAC CATH NOTE STANDARD TITLE: CARDIOLOGY PROCEDURE NOTE DATE OF NOTE: MAR 10, 2024@13:16:45 ENTRY DATE: MAR 10, 2024@13:16:45 AUTHOR: CLINICAL,DEVICE PRO EXP COSIGNER: URGENCY: STATUS: COMPLETED PROCEDURE SUMMARY CODE: Machine Resulted DATE/TIME PERFORMED: MAR 10, 2024@09:43:3 DOCUMENT IN VISTA IMAGING SEE FULL REPORT IN VISTA IMAGING SIGNATURE NOT REQUIRED SEE SIGNATURE IN VISTA IMAGING (CP CATH OUTPT) AUTO-INSTRUMENT DIAGNOSIS Procedure: CATH CATH [facility] Cardiac Catheterization/EP Lab [address] [place] [address]. [id number] Supplies Summary Time Size Flap Maker Item Serial Lot Part Billing Comment Name Number Number Number Code (Model) 10:17 AM [employer] Pacemak VAML02- er Pack -07 10:17 AM 3M ScatPad SAFA 302 10:17 AM Coviden Bovie pad E7507 10:18 AM CORDIS Short 504-605 Sheath X 5FR 11cm 11:56 AM 22in TIDI Products Dome CFI-821 Bag 22in Depth 11:56 AM Zoll Medical Zoll 8900-40 Radioluce 06 nt Pro- Padz - R2 pads 11:57 AM 6F x Arrow Balloon [id number] 110c Wedge m Pressure Catheter 6F 12:55 PM Ardon WHIPSE [id number] R MS H 0.014 X 190 CM 12:55 PM Ardon WHIPSE [id number] R MS H 0.014 X 190 CM Patient Name: KATE CARTER Study Date: 03/10/2024 Admission ID: [id number] Page 1 of 2 [facility] Cardiac Catheterization/EP Lab [address] [place] [address]. [id number] Patient Name: KATE CARTER Study Date: 03/10/2024 Admission ID: [id number] Page 2 of 2 Administrative Closure: 03/10/2024 by: DEVICE PROXY SERVICE CLINICAL CLINICAL,DEVICE PROXY SERVICE CLINICAL,DEVICE PROXY SERVICE [facility] Mar 10, 2024 11:49 AM NURSING NOTE: LOCAL TITLE: PRE PROCEDURE PROGRESS NOTE WITH MED-REC STANDARD TITLE: NURSING NOTE DATE OF NOTE: MAR 10, 2024@11:49 ENTRY DATE: MAR 10, 2024@12:00:28 AUTHOR: COLIN MULLEN EXP COSIGNER: URGENCY: STATUS: COMPLETED History & Physical dated within 30 days or Review of Systems completed. Yes Interval/Focus H&P Note within 24 hours of planned procedure Yes Attending note within 30 days Yes Step 1: Reviewed current medications with patient/signficant other, patient/significant other reports patient taking ALL VA, Non VA & OTC medications as listed on CPRS medication tab outpatient section. YES: *Printed copy of medication list provided to patient and reviewed. Yes *Explained to the patient the importance of keeping providers updated on medication changes and to carrying an updated list of medication at all times in case of an emergency situation. Yes Step 2: Consent Form checked for: Patient's Full Name: Yes Procedure Site: Yes Name of Procedure: Yes Reason for Procedure:Yes Privileges verified: Yes Step 3: Operative site marked.No Special Purpose Wristband used prior to the procedure which includes: Site/Name of Procedure/Physician initials: Yes Step 4: Patient States: Their Full Name Yes Full SSN or Date of Yes Site for the Procedure Yes Step 5: Time Out Presence of the Correct Patient Yes Marking of the Correct Site Yes Procedure to be Performed Yes Availability of the Correct Implant Yes Time Out Done At: 1149 YES, Verbal confirmation by participants of the site of the invasive procedure to be performed. Position of Patient: Supine Participants: Name of Surgeon/Physician:Dr. Mckinney and Name of Nursing Staff Members: Luis Mullen RN Other: Angélica Shaffer Endoscopy Suite ONLY: Scope reprocessing date current Not Applicable Not Applicable See OR Nurse Gardners Protocol Checklist Note for Time out documentation for OR cases. Patient notified check out clerk available upon request for any examinations/procedures. Warm Handoff communicated to LANNY Mckeon. Time: 1149 /es/ COLIN MULLEN Registered Nurse Signed: 03/10/2024 12:01 COLIN MULLEN[facility] Mar 10, 2024 10:36 AM INTERNAL MEDICINE ATTENDING ADMISSION EVALUATION NOTE: LOCAL TITLE: MEDICINE ATTENDING ADMISSION PROGRESS NOTE STANDARD TITLE: INTERNAL MEDICINE ATTENDING ADMISSION EVALUATION DATE OF NOTE: MAR 10, 2024@10:36 ENTRY DATE: MAR 10, 2024@10:36:43 AUTHOR: DOV TELLES EXP COSIGNER: URGENCY: STATUS: COMPLETED HPI:63 male with history of ICM, DM, EF 27% as of 08/2023, who presents today for elective BiV ICD placement. PAST MEDICAL HX: Active problems - Computerized Problem List is the source for the followin. Fatty liver 2. Neuropathy due to type 2 diabetes mellitus 3. Hypertension 4. Glaucoma ophthal eval 03/06/19: open angle, moderate OS 5. Age related macular degeneration ophthal eval 03/06/19: AMD - non Ex intermediate OD 6. Degeneration of cervical intervertebral disc 7. Gastroesophageal reflux disease 8. Bilateral plantar fasciitis 9. Basal cell carcinoma of skin REVIEW OF SYSTEMS: 14 point negative review except what is mentioned in HPI MEDICATIONS: Medicine/Supplies Qty Last Filled 1) EMPAGLIFLOZIN 10MG TAB: TAKE ONE TABLET BY MOUTH 90 JAN 17, 2024 EVERY MORNING FOR HEART FAILURE 2) EZETIMIBE 10MG TAB: TAKE ONE TABLET BY MOUTH EVERY 90 JAN 17, 2024 EVENING FOR CHOLESTEROL 3) METOPROLOL SUCCINATE 100MG SA TAB: TAKE ONE AND 135 MAR 14, 2024 ONE-HALF TABLETS BY MOUTH DAILY FOR HEART 4) SPIRONOLACTONE 25MG TAB: TAKE ONE TABLET BY MOUTH 90 MAR 14, 2024 DAILY FOR HEART FAILURE 5) ROSUVASTATIN CA 40MG TAB: TAKE ONE TABLET BY MOUTH 90 JAN 17, 2024 DAILY FOR CHOLESTEROL 6) INSULIN,GLARGINE-YFGN 100UNIT/ML *PEN*: INJECT 17 5 JAN 04, 2024 UNITS UNDER THE SKIN DAILY FOR BLOOD SUGAR -DISCARD PEN 7) FLUTICASONE PROP 50MCG 120D NASAL INHL: USE 1 3 JAN 30, 2024 SPRAY IN EACH NOSTRIL DAILY FOR NASAL ALLERGY 8) CHOLECALCIF 25MCG (D3-1,000UNIT) TAB: TAKE ONE 100 JAN 10, 2024 TABLET BY MOUTH DAILY FOR VITAMIN D SUPPLEMENT 9) GLIPIZIDE 10MG TAB: TAKE TWO TABLETS BY MOUTH 360 DEC 16, 2023 TWICE A DAY FOR DIABETES 10) ACETAMINOPHEN 325MG TAB: TAKE TWO TABLETS BY MOUTH 100 FEB 27, 2024 TWICE A DAY NEEDED FOR PAIN - DO NOT TAKE 11) MULTIVIT/OPHTH AREDS2/LUTE/ZEAX CAP/TAB: TAKE 1 180 JAN 20, 2024 SOFTGEL BY MOUTH TWICE A DAY AFTER MEALS FOR EYE HEALTH 12) ASPIRIN 81MG EC TAB: TAKE ONE TABLET BY MOUTH 90 JAN 30, 2024 DAILY FOR HEART 13) SACUBITRIL 97MG/VALSARTAN 103MG TAB: TAKE 1 TABLET 180 FEB 28, 2024 BY MOUTH TWICE A DAY FOR HEART FAILURE 14) OMEPRAZOLE 20MG EC CAP: TAKE ONE CAPSULE BY MOUTH 180 FEB 05, 2024 TWICE A DAY FOR STOMACH. TAKE ON AN EMPTY 15) METFORMIN HCL 500MG 24HR SA TAB: TAKE TWO TABLETS 120 FEB 28, 2024 BY MOUTH TWICE A DAY FOR DIABETES 16) NEEDLE,PEN 32G,4MM: USE 1 NEEDLE UNDER THE SKIN 100 MAR 09, 2024 EVERY DAY 17) ACCU-CHEK GUIDE (GLUCOSE) TEST STRIP: USE 1 STRIP 200 MAR 09, 2024 TO TEST BLOOD SUGAR DIRECTED Active Non-VA Meds NONE ALLERGIES: VANCOMYCIN, GABAPENTIN, PREGABALIN, SIMVASTATIN, ROSUVASTATIN Physical Exam: BP 132/78 HR 60 R 17 O2 100% RA General Appearance: Well developed, well-nourished, in no acute distress. Heart: RRR, no murmur, gallop or rub Lungs: Clear to auscultation bilaterally Abdomen: Soft, nontender, no guarding or rebound. Bowel sounds present. Extremities: No clubbing, cyanosis, or edema Psychiatric: Awake, alert and oriented x 3. Appropriate mood and affect. Skin: Warm, dry, and well perfused.No dermatitis or ulcerations. ASSESSMENT/PLAN: 1. ICM- will undergo BiV ICD placement, followed by overnight admission for observation per protocol. 2. DM- will monitor /amando/ DOV TELLES physician assistant gm of content & delivery Signed: 03/10/2024 10:39 DOV TELLES-[facility]
--- OUTSIDE RECORDS SUMMARY | 2024-07-14 06:46 | XMS_ITS ---
Author Name [facility] Organization [facility] [place] Address [address] [place] [id number] Care Team Providers Care Pelletizer Tender Name Role Phone JOSUE JOOENEDINA Primary Care Provider Unavaila SHRUTHI Luis Primary Care Provider Unavailabl e Insurance [...] PART A May 30, 2024 PART A [id number] WIGGLESWO RTH,STEWA RT PATIENT MEDICARE (WNR) MEDICARE (M) PART B May 30, 2024 PART B [id number] WIGGLESWO RTH,STEWA RT PATIENT [facility] 2017 SELEC T RETIR ED May 16, 2018 [facility] RETIRED [id number] [phone] WIGGLESWO RTH,STEWA RT PATIENT [facility] 2018 [employer] A Apr 01, 2017 DODA [id number] WIGGLESWO RTH,STEWA RT PATIENT [facility] 2024 PRIME RETIR ED Apr 01, 2024 [employer] RETIRED [id number] [phone] WIGGLESWO RTHAMY RT PATIENT Selected Encounter This section includes the information on record at [place] for the Encounter. Date/Time Encounter Type Encounter Description Reason Pro vider Source Oct 15, 2023 08:00 AM OFFICE O/P EST MOD 30 MIN CARDIAC CATHETERIZATION ICD-10-CM I50.22 Chronic systolic (congestive) heart failure DOV MUHAMMAD [facility]atracho Encounter Template Text not used by [place] Assessments - Encounter Diagnoses This section includes the primary and secondary diagnoses documented for the Encounter. Date/Time Primary/Secondary Diagnosis Diagnosis Name Provider Source Oct 22, 2023 07:44 AM PRIMARY Chronic systolic (congestive) heart failure DOV RAMSEY [facility] Plan of Treatment: Future Appointments (+ 6 months) and Future Tests (+/- 45 days) The Plan of Treatment section includes future care activities for the patient from all [place] [facility]. This section includes future appointments and future orders which are active, pending or scheduled. Future Appointments This section includes appointments that were scheduled to occur 6 months from the date of the Encounter, up to a maximum of 20 appointments. The data comes from all [place] treatment facilities. Appointment Date/Time Appointment Type Appointme nt Facility Name Nov 05, 2023 08:30 AM AMBULATORY - REHAB MEDICIN E [facility] Nov 05, 2023 08:40 AM AMBULATORY - SURGERY [place] [facility] Nov 20, 2023 03:00 PM AMBULATORY - MEDICINE [place] [facility] Nov 26, 2023 10:30 AM AMBULATORY - NONE [facility] Dec 12, 2023 04:00 PM AMBULATORY - MEDICINE [place] [facility] Jan 01, 2024 08:30 AM AMBULATORY - REHAB MEDICIN E [facility] Jan 14, 2024 08:30 AM AMBULATORY - SURGERY [place] [facility] Jan 27, 2024 01:00 PM AMBULATORY - MEDICINE [place] [facility] Jan 29, 2024 03:00 PM AMBULATORY - MEDICINE [place] [facility] Feb 07, 2024 09:00 AM AMBULATORY - SURGERY [place] [facility] Feb 20, 2024 02:00 PM AMBULATORY - NONE [place] [facility] Feb 21, 2024 02:30 PM AMBULATORY - MEDICINE [place] [facility] Mar 16, 2024 10:30 AM AMBULATORY - NONE [place] Nguy[facility]n [facility] Mar 23, 2024 10:00 AM [place]ULATORY - [place]IC[place] [facility] Apr 08, 2024 08:15 AM AMBULATORY - MEDICINE [place] [facility] Apr 16, 2024 01:30 PM [facility] Apr 16, 2024 02:15 PM AMBULATORY - NONE [facility] Lab Results: +/- 30 days of the [...] Unit Interpretation Reference Range Specimen Type Comment Nov 05, 2023 09:34 AM [facility] PANEL 1 PLASMA Specimen Type: PLASMA Comment: Estimated Glomerular Filtration Rate (eGFR) calculated using the 2020 Chronic Kidney Disease-Epidemiol ogy (CKD-EPI) Collaboration creatinine equation; units of measure [...] or structural abnormalities does not represent CKD. === eGFR CKD Interpretation (mL/min/1.73 m2) stage >=90 G1 Normal 60-89 G2 Mild decrease 45-59 G3A Mild to moderate decrease 30-44 G3B Moderate to severe decrease 15-29 G4 Severe decrease <15 G5 Kidney failure Ordering Provider: PHAM SHORT Report Released Date/Time: Oct 22, 2023 09:51 AM Reporting Lab: [address] [address] Performing Lab: [address] [address] CREATININE 1.24 mg/dL 0.72-1.25 UREA NITROGEN 28 mg/dL H 9-25 GLUCOSE 182 mg/dL H 74-100 SODIUM 140 mmol/L 136-145 POTASSIUM 4.8 mmol/L 3.5-5.1 CHLORIDE 105 mmol/L 98-107 CO2 28 mmol/L 22-29 CALCIUM 9.8 mg/dL 8.4-10.2 ANION GAP 7 meq/L 3-19 eGFR (CKD-EPI) 65 Oct 15, 2023 09:36 AM [facility] POC AVOX GAS MIXED VENOUS Specimen Type : MIXED VENOUS Comment: Specimen Site: Pulmonary artery, Main Test performed by: [id number] Meter #:[id number] Ordering Provider: DOV MUHAMMAD Report Released Date/Time: Oct 15, 2023 10:34 AM Reporting Lab: [address] [address] Performing Lab: [address] [address] .O2HB (AVOX) 62.5 60-80 .HGB (AVOX) 12.2 g/dL 12-18 Oct 14, 2023 08:22 AM [facility] CBC/PLT BLOOD Specimen Type: BLOOD No comment entered. Ordering Provider: DOV RAMSEY Report Released Date/Time: Oct 10, 2023 12:55 PM Reporting Lab: [facility] [address] [facility] [address] Performing Lab: [facility] [address] [facility] [address] WBC 6.2 10*3/uL 5.0-10.0 RBC 5.34 10*6/uL 4.6-6.2 HGB 13.8 g/dL L 14.0-18.0 HCT 44.7 42.0-52.0 MCV 83.7 fL 80.0-94.0 MCH 25.8 pg L 27.0-31.0 MCHC 30.9 g/dL L 32.0-36.0 PLT 204 10*3/uL 150-450 MPV 10.1 fL 9.0-13.1 RDW 17.4 H 11.0-16.0 NRBC 0.0 0.0-0.0 Oct 14, 2023 08:22 AM [facility] MAGNESIUM PLASMA Specimen Type: PLASM A Comment: Estimated [...] decrease <15 G5 Kidney failure Ordering Provider: SANDRA MARCOS Report Released Date/Time: Oct 09, 2023 01:38 PM Reporting Lab: [address] [address] Performing Lab: [address] [address] MAGNESIUM 2.1 mg/dL 1.6-2.6 Oct 14, 2023 08:22 AM [facility] BNP ([email or web address]) PLASMA Specimen Type: PLASMA Comment: BNP results less than or equal to 100 pg/ml are international representative of normal values in patients without CHF. BNP results greater than 100 pg/ml are considered abnormal and suggestive of CHF. Higher BNP concentrations in the first 72 hours after Acute Coronary Syndrome are associated with an increased risk of , myocardial infarction and CHF. Ordering Provider: SANDRA MARCOS Report Released Date/Time: Oct 09, 2023 01:38 PM Reporting Lab: [address] [address] Performing Lab: [address] [address] BNP (HARDIN) 204 pg/mL H 0-100 Oct 14, 2023 08:22 AM [facility]ENTER[facility]ay[facility] Digital[facility] PANEL 1 PLASMA Specimen Type: PLASM A [...] decrease <15 G5 Kidney failure Ordering Provider: SANDRA MARCOS Report Released Date/Time: Oct 09, 2023 01:38 PM Reporting Lab: [address] [address] Performing Lab: [address] [address] CREATININE 1.27 mg/dL H 0.72-1.25 UREA NITROGEN 35 mg/dL H 9-25 GLUCOSE 126 mg/dL H 74-100 SODIUM 134 mmol/L L 136-145 POTASSIUM 4.7 mmol/L 3.5-5.1 CHLORIDE 103 mmol/L 98-107 CO2 24 mmol/L 22-29 CALCIUM 10.0 mg/dL 8.4-10.2 ANION GAP 7 meq/L 3-19 eGFR (CKD-EPI) 63 Vital Signs: All taken on the encounter date This section contains inpatient and outpatient Vital Signs collected on the date of the Encounter. Date/Time Temperature Pulse Blood Pressure Respiratory Rate SP02 Pain Height Weight Body Mass Index Source Oct 15, 2023 08:39 AM 59 130/77 100 [facility] ON-D [facility] Radiology Reports: +/- 30 days of the [...] the Encounter. The data comes from all [place] treatment facilities. Date/Time Radiology Report Provider Source Oct 15, 2023 07:30 AM RN POOL - FLUORO UP TO 1 HOUR: KATE CARTER [id number] -1960 M Exm Date: OCT 15, 2023@07:30 Req Phys: DOV HURTADO Loc: CARDIAC CATH/OPT/CDD (Req'g Lo Img Loc: ANGIO/NEURO/INTERVENTIONAL Service: [place] [address] (Case [id number] COMPLETE) RN POOL - FLUORO UP TO 1 HOUR (ANI Detailed) CPT:32386 Reason for Study: RHC Clinical History: RHC Report Status: Verified Date Reported: Date Verified: OCT 15, 2023 Environmental Officer E-Sig: Report: See Impression Impression: Cover Creaser imaging capture for storage. Please see CPRS Cover Creaser consults and notes in CPRS for final reporting and exam documentation. Primary Diagnostic Code: Primary Interpreting Staff: PHYS OTHER THAN [place] RADIOL, Staff Physician Verified by counter tender for PHYS OTHER THAN [place] RADIOL /[facility] RADIOLOGIST,PHYS OTHER THAN [facility] Encounter Notes: All associated encounter notes This section contains the clinical notes associated to the Encounter. Date/Time Encounter Note(s) Provider Source Oct 15, 2023 11:32 AM CARDIOLOGY POSTPRO CEDURE NOTE: LOCAL TITLE: CARDIAC CATH POST PROCEDURE NOTE STANDARD TITLE: CARDIOLOGY POSTPROCEDURE NOTE DATE OF NOTE: OCT 15, 2023@11:32 ENTRY DATE: OCT 15, 2023@11:32:46 AUTHOR: DOV RAMSEY EXP COSIGNER: QUINTIN ADAMS URGENCY: STATUS: COMPLETED CARDIOVASCULAR DIAGNOSTIC AND THERAPEUTIC PROCEDURE REPORT Patient: KATE CARTER SSN: [id number] : 1960 AGE: 63 Procedure Date: 10/15/2023 Associated Assessment: CV (10/15/2023) Procedure Status: Elective outpatient procedure Attending: QUINTIN ADAMS Assisting: DOV RAMSEY PROCEDURE INDICATIONS Primary Indication: Systolic Heart Failure PROCEDURES PERFORMED Diagnostic Procedures: Right Heart Catheterization Other Procedures: Ultrasound guidance for vascular access Moderate sedation TIME-OUT A time-out was performed addressing all safety requirements relevant to the procedure. Type of procedure, site, and patient ID were verified with the patient. The attending has assessed or re-assessed the patient and there are no changes to the pre-procedure assessment. NPO since: 1999 ACCESS Venous: Ultrasound guided Right Int Jugular access (8F), Hemostasis with manual compression CATHETERS ALL PROCEDURES Heart rate (Bpm): 60 Aorta (mmHg): 127/ 72, mean 94 RIGHT HEART CATHETERIZATION Pressures (mmHg) RA mean: 5 RV: 31/ 6 PA: 34/ 10, mean 17 PCWP: 5 Mean BP: 94 Heart Rate: 63 bpm Hemoglobin: 12.2 Cardiac Output (Q): Q(Thermodilution): 4.93 L/min Q(Willie): 4.59 L/min Cardiac Index (CI): BSA = 2.4 m^2 CI(Thermodilution): 2.05 L/min/m^2 CI(Willie): 1.91 L/min/m^2 Stroke Volume (SV) and Index (SVI): BSA = 2.4 m^2 SV(Thermodilution): 78 ml SVI: 32.61 ml/m^2 SV(Willie): 72.9 ml SVI: 30.4 ml/m^2 Vascular Resistance: Pulmonary vascular resistance: 2.4 Wood units Systemic vascular resistance: 1444 vryps-sik-br^-5 Oxygen Saturations: Arterial saturation: 99% Mixed venous saturation: 63% PROCEDURE DETAILS AND FINDINGS IN-LAB MEDICATIONS Fentanyl 25mcg IV Midazolam 0.5mg IV Summary Data: Total Contrast: 0 mL, Visipaque-320 (iodixanol) Total Fluoroscopy Time: 0.4 min Radiation DAP: 950 cGy-cm2 Air Kerma: 4.9 mGy Total Fluids: 5 mL Estimated Blood Loss: 0 mL PERIPROCEDURAL COMPLICATIONS No Major Adverse Events or Complications The attending was present throughout the procedure. PROCEDURE SUMMARY 1. Normal R heart filling pressures RECOMMENDATIONS 1. Continued management with outpatient cardiology team; results communicated to primary yellow pages space salesperson PROCEDURE CODING Coding Procedure [id number] Ultrasound guidance for vascular access N/A Moderate sedation /amando/ DOV RAMSEY Signed: 10/15/2023 11:33 /amando/ QUINTIN ADAMS Cosigned: 10/17/2023 10:16 DOV RAMSEY-D [facility] Oct 15, 2023 10:57 AM PROCEDURE NOTE: LOCAL TITLE: CP CATH OUTPATIENT NOTE STANDARD TITLE: PROCEDURE NOTE DATE OF NOTE: OCT 15, 2023@10:57 ENTRY DATE: OCT 15, 2023@10:57:13 AUTHOR: DOV RAMSEY EXP COSIGNER: QUINTIN ADAMS URGENCY: STATUS: COMPLETED PROCEDURE SUMMARY CODE: Abnormal DATE/TIME PERFORMED: OCT 15, 2023@08:25 CARDIOVASCULAR DIAGNOSTIC AND THERAPEUTIC PROCEDURE REPORT Patient: KATE CARTER SSN: [id number] : 1960 AGE: 63 Procedure Date: 10/15/2023 Associated Assessment: CV (10/15/2023) Procedure Status: Elective outpatient procedure Attending: QUINTIN ADAMS Assisting: DOV RAMSEY PROCEDURE INDICATIONS Primary Indication: Systolic Heart Failure PROCEDURES PERFORMED Diagnostic Procedures: Right Heart Catheterization Other Procedures: Ultrasound guidance for vascular access Moderate sedation TIME-OUT A time-out was performed addressing all safety requirements relevant to the procedure. Type of procedure, site, and patient ID were verified with the patient. The attending has assessed or re-assessed the patient and there are no changes to the pre-procedure assessment. NPO since: 1999 ACCESS Venous: Ultrasound guided Right Int Jugular access (8F), Hemostasis with manual compression CATHETERS ALL PROCEDURES Heart rate (Bpm): 60 Aorta (mmHg): 127/ 72, mean 94 RIGHT HEART CATHETERIZATION Pressures (mmHg) RA mean: 5 RV: 31/ 6 PA: 34/ 10, mean 17 PCWP: 5 Mean BP: 94 Heart Rate: 63 bpm Hemoglobin: 12.2 Cardiac Output (Q): Q(Thermodilution): 4.93 L/min Q(Willie): 4.59 L/min Cardiac Index (CI): BSA = 2.4 m^2 CI(Thermodilution): 2.05 L/min/m^2 CI(Willie): 1.91 L/min/m^2 Stroke Volume (SV) and Index (SVI): BSA = 2.4 m^2 SV(Thermodilution): 78 ml SVI: 32.61 ml/m^2 SV(Willie): 72.9 ml SVI: 30.4 ml/m^2 Vascular Resistance: Pulmonary vascular resistance: 2.4 Wood units Systemic vascular resistance: 1444 uumso-nwb-bv^-5 Oxygen Saturations: Arterial saturation: 99% Mixed venous saturation: 63% PROCEDURE DETAILS AND FINDINGS IN-LAB MEDICATIONS Fentanyl 25mcg IV Midazolam 0.5mg IV Summary Data: Total Contrast: 0 mL, Visipaque-320 (iodixanol) Total Fluoroscopy Time: 0.4 min Radiation DAP: 950 cGy-cm2 Air Kerma: 4.9 mGy Total Fluids: 5 mL Estimated Blood Loss: 0 mL PERIPROCEDURAL COMPLICATIONS No Major Adverse Events or Complications The attending was present throughout the procedure. PROCEDURE SUMMARY 1. Normal R heart filling pressures RECOMMENDATIONS 1. Continued management with outpatient cardiology team; results communicated to primary yellow pages space salesperson PROCEDURE CODING Coding Procedure [id number] Ultrasound guidance for vascular access N/A Moderate sedation /amando/ DOV RAMSEY Signed: 10/15/2023 11:32 /es/ QUINTIN ADAMS Cosigned: 10/17/2023 10:16 DOV RMASEY [facility] Oct 15, 2023 10:43 AM CARDIOLOGY POSTPRO CEDURE NOTE: LOCAL TITLE: CARDIAC CATH POST PROCEDURE NOTE STANDARD TITLE: CARDIOLOGY POSTPROCEDURE NOTE DATE OF NOTE: OCT 15, 2023@10:43 ENTRY DATE: OCT 15, 2023@11:08:08 AUTHOR: COLIN MULLEN EXP COSIGNER: URGENCY: STATUS: COMPLETED PROCEDURE: Cardiac Catheterization-Right CITY WEIGHMASTER AND UTILITY INSPECTOR: Dr. Sabina Chakraborty FINDING/DIAGNOSIS (PER MD): See Cardiology Note ESTIMATED BLOOD LOSS: Minimal SPECIMENS REMOVED: None IV Sedation: Fentanyl 25 mcg, Versed 0.5 mg VEIN USED: Right IJ SITE APPEARANCE: No swelling or bruising Closure: Manual POST PROCEDURE PULSE ASSESSMENT: Radial: Palpable COMPLICATIONS: None PROCEDURE START TIME: 1008 PROCEDURE STOP TIME: 1043 /es/ COLIN MULLEN Registered Nurse Signed: 10/15/2023 11:09 COLIN MULLEN [facility] Oct 15, 2023 10:31 AM SCANNED NOTE: LOCAL TITLE: CONSCIOUS SEDATION SCANNED NOTE STANDARD TITLE: SCANNED NOTE DATE OF NOTE: OCT 15, 2023@10:31 ENTRY DATE: OCT 17, 2023@10:31:45 AUTHOR: NAHEED UMAÑA EXP COSIGNER: URGENCY: STATUS: COMPLETED The scanned image may be viewed in Hello[employer]. /amando/ NAHEED UMAÑA LEAD DICTATING TRANSCRIBING MACHINE SERVICER Signed: 10/17/2023 10:32 NAHEED UMAÑA [facility] Oct 15, 2023 10:08 AM NURSING NOTE: LOCAL TITLE: PRE PROCEDURE PROGRESS NOTE WITH MED-REC STANDARD TITLE: NURSING NOTE DATE OF NOTE: OCT 15, 2023@10:08 ENTRY DATE: OCT 15, 2023@10:19:01 AUTHOR: COLIN MULLEN EXP COSIGNER: URGENCY: STATUS: [...] in case of an emergency situation. Yes NO: Discrepancies: Insulin Glargine-YFGN 100unit/mL Pen inject 17 units under the skin daily for blood sugar Patient no longer takes Grassfed beef heart, Grassfed Beef Liver, Grassfed kidney, Quercetin/Vit D3 *Printed copy of medication list provided to [...] Correct Implant Yes Time Out Done At: 1008 YES, Verbal confirmation by participants of the site of the invasive procedure to be performed. Position of Patient: Supine Participants: Name of Surgeon/Physician:Dr. Adams, Dr. Muhammad and Name of Nursing Staff Members: Luis Mullen RN Other: Leah Shaffer Endoscopy Suite ONLY: Scope reprocessing date current Not Applicable Not Applicable See OR Nurse [place] Protocol Checklist Note for Time out documentation for OR cases. Patient notified window and door installer available upon request for any examinations/procedures. Warm Handoff communicated to LANNY Mckeon. Time: 1008 /es/ COLIN MULLEN Registered Nurse Signed: 10/15/2023 10:25 Receipt Acknowledged By: 10/15/2023 11:21 /amando/ Shruthi Ceja MD Primary Care Physician COLIN MULLEN-MARÍA [facility] Oct 15, 2023 09:17 AM CARDIOLOGY PREPROC EDURE NOTE: LOCAL TITLE: CARDIOLOGY PRE-PROCEDURE ASSESSMENT NOTE STANDARD TITLE: CARDIOLOGY PREPROCEDURE NOTE DATE OF NOTE: OCT 15, 2023@09:17 ENTRY DATE: OCT 15, 2023@09:18:18 AUTHOR: DOV RAMSEY EXP COSIGNER: DOV MUHAMMAD URGENCY: STATUS: COMPLETED [place] CART Program for Clinical Assessment, Reporting, and Tracking CARDIOVASCULAR PRE-PROCEDURE ASSESSMENT REPORT Patient: KATE CARTER SSN: [id number] : 1960 AGE: 63 Assessment for elective CARDIOVASCULAR procedure Assessed by: DOV RAMSEY Date: 10/15/2023 Attending: QUINTIN ADAMS PRESENTATION Primary Indication Systolic Heart Failure NYHA Functional Class II Additional Indications: Systolic Heart Failure Concomitant Conditions: Cardiac Arrest: No Cardiogenic Shock: No Test: Negative PRIOR CARDIOVASCULAR HISTORY Cardiac Cath, 1 vessel CAD (2023-02-01) PCI (2023-02-01) CARDIAC RISK FACTORS Diabetes Hypertension Dyslipidemia Diabetes therapy: oral Former tobacco use REVIEW OF SYSTEMS A complete review of systems was performed. PHYSICAL EXAM Vital Value Unit Date/Time BP 130/ 77 mmHG 2023-10-15 08:39 HR 59 bpm 2023-10-15 08:39 Height 72 inches 2023-08-15 08:04 Weight 196.8 lbs 2023-09-25 13:58 BSA 2 m^2 2023-09-25 13:58 Neck: Lungs: No rales present Cardiac: No extra heart sound present No murmur Extremities: Arm Pulses: Normal left radial pulse Normal right radialpulse LABS Lab Value Date/Time Alert BNP 204 2023-10-14 08:22 high Creatinine 1.27 2023-10-14 08:22 high Potassium 4.7 2023-10-14 08:22 Sodium 134 2023-10-14 08:22 low Hematocrit 44.7 2023-10-14 08:22 Hemoglobin 13.8 2023-10-14 08:22 low Platelets 204 2023-10-14 08:22 Cholesterol total 116 2023-08-15 08:51 HDL Cholesterol 43 2023-08-15 08:51 Triglycerides 77 2023-08-15 08:51 INPATIENT MEDICATIONS in SODIUM CHLORIDE 0.9% 1000 ML expires: 10/29/2023 IV 50 ml/hr@0 call center recruiter to Cover Creaser. Indication: FOR HYDRATION OUTPATIENT MEDICATIONS EMPAGLIFLOZIN 10MG TAB Qty: 90 for 90 days expires: 09/25/2024; last filled: 09/26/2023; active Sig: TAKE ONE TABLET BY MOUTH EVERY MORNING FOR HEART FAILURE Indication: FOR HEART FAILURE EZETIMIBE 10MG TAB Qty: 90 for 90 days expires: 09/25/2024; last filled: 09/26/2023; active Sig: TAKE ONE TABLET BY MOUTH EVERY EVENING FOR CHOLESTEROL Indication: FOR CHOLESTEROL METOPROLOL SUCCINATE 100MG SA TAB Qty: 135 for 90 days expires: 09/25/2024; last filled: 09/26/2023; active Sig: TAKE ONE AND ONE-HALF TABLETS BY MOUTH DAILY FOR HEART Indication: FOR HEART SPIRONOLACTONE 25MG TAB Qty: 90 for 90 days expires: 09/25/2024; last filled: 09/26/2023; active Sig: TAKE ONE TABLET BY MOUTH DAILY FOR HEART FAILURE Indication: FOR HEART FAILURE ROSUVASTATIN CA 40MG TAB Qty: 90 for 90 days expires: 09/25/2024; last filled: 09/26/2023; active Sig: TAKE ONE TABLET BY MOUTH DAILY FOR CHOLESTEROL Indication: FOR CHOLESTEROL ACETAMINOPHEN 325MG TAB Qty: 100 for 30 days expires: 07/28/2024; last filled: 09/27/2023; active Sig: TAKE TWO TABLETS BY MOUTH TWICE A DAY NEEDED FOR PAIN - DO NOT TAKE MORE THAN 12 TABLETS PER DAY *SACUBITRIL 49MG/VALSARTAN 51MG TAB Qty: 180 for 90 days expires: 07/16/2024; last filled: 10/07/2023; active Sig: TAKE 1 TABLET BY MOUTH TWICE A DAY FOR HEART FAILURE - THIS IS A DOSE INCREASE. START THIS INCREASED DOSE ON 07/31/2023 MUPIROCIN 2% OINT Qty: 22 for 30 days expires: 04/11/2024; last filled: 04/11/2023; active Sig: APPLY SMALL AMOUNT TO AFFECTED AREA TWICE A DAY FOR SKIN INFECTION Indication: FOR SKIN INFECTION *DEXTRAN 70/GLYCER 0.2%/HYPROMEL 0.3% OPH Qty: 45 for 90 days expires: 02/20/2024; last filled: 02/19/2023; active Sig: PUT 1 DROP IN EYE(S) FOUR TIMES A DAY NEEDED FOR DRY EYES Indication: FOR DRY EYES ASPIRIN 81MG EC TAB Qty: 90 for 90 days expires: 02/14/2024; last filled: 08/03/2023; active Sig: TAKE ONE TABLET BY MOUTH DAILY FOR HEART Indication: FOR HEART CLOPIDOGREL BISULFATE 75MG TAB Qty: 90 for 90 days expires: 02/14/2024; last filled: 08/03/2023; active Sig: TAKE ONE TABLET BY MOUTH DAILY TO THIN BLOOD Indication: TO THIN BLOOD ACCU-CHEK GUIDE (GLUCOSE) TEST STRIP Qty: 200 for 90 days expires: 01/09/2024; last filled: 09/06/2023; active Sig: USE 1 STRIP TO TEST BLOOD SUGAR DIRECTED CHOLECALCIF 25MCG (D3-1,000UNIT) TAB Qty: 100 for 90 days expires: 01/09/2024; last filled: 07/25/2023; active Sig: TAKE ONE TABLET BY MOUTH DAILY FOR VITAMIN D SUPPLEMENT INSULIN,GLARGINE-YFGN 100UNIT/ML *PEN* Qty: 5 for 90 days expires: 01/09/2024; last filled: 07/15/2023; active Sig: INJECT 15 UNITS UNDER THE SKIN DAILY FOR BLOOD SUGAR -DISCARD PEN AFTER 28 DAYS OF USE METFORMIN HCL 500MG 24HR SA TAB Qty: 360 for 90 days expires: 01/09/2024; last filled: 08/02/2023; active Sig: TAKE TWO TABLETS BY MOUTH TWICE A DAY FOR DIABETES MULTIVIT/OPHTH AREDS2/LUTE/ZEAX CAP/TAB Qty: 120 for 60 days expires: 01/09/2024; last filled: 10/07/2023; active Sig: TAKE 1 SOFTGEL BY MOUTH TWICE A DAY AFTER MEALS FOR EYE HEALTH OMEPRAZOLE 20MG EC CAP Qty: 180 for 90 days expires: 01/09/2024; last filled: 07/28/2023; active Sig: TAKE ONE CAPSULE BY MOUTH TWICE A DAY FOR STOMACH. TAKE ON AN EMPTY STOMACH *LATANOPROST 0.005% OPH SOLN Qty: 10 for 90 days expires: 12/22/2023; last filled: 06/27/2023; active Sig: PUT 1 DROP IN BOTH EYES AT BEDTIME FOR GLAUCOMA Indication: FOR GLAUCOMA GLIPIZIDE 10MG TAB Qty: 360 for 90 days expires: 12/19/2023; last filled: 09/27/2023; active Sig: TAKE TWO TABLETS BY MOUTH TWICE A DAY FOR DIABETES Non-VA GRASSFED BEEF LIVER CAP/TAB 6 CAP/TAB MOUTH DAILY Indication: FOR SUPPLEMENT Non-VA GRASSFED KIDNEY CAP/TAB 6 CAPS/TABS MOUTH DAILY Indication: FOR SUPPLEMENT Non-VA QUERCETIN/VITAMIN D3 CAPT TAB 1 CAP/TAB MOUTH DAILY DIRECTED Non-VA MAGNESIUM OXIDE 420MG TAB 840MG MOUTH DAILY Non-VA CENTRUM SILVER TABLET 1 TABLET MOUTH DAILY Non-VA ASCORBIC ACID 500MG TAB 1000MG MOUTH DAILY Non-VA GRASS FED HEART CAP/TAB 6 CAPS MOUTH DAILY MEDICATION REVIEW AND RECONCILIATION Medications (prescriptions and over the counter) reviewed with the patient and reconciled in the medical record. ALLERGIES/ADVERSE REACTIONS Vancomycin Gabapentin Pregabalin Simvastatin Rosuvastatin ECG Abnormalities or Relevant Findings (2023-02-13) Sources: 12-lead ECG Morphologies : LBBB SEDATION/CONSENT CodeStatus: Full Code Anesthesia: consult not needed Sedation by Cardiology Planned sedation level: Moderate Mallampati Class 3: only soft palate visible Mouth: Teeth Airway: Normal Jaw/Neck mobility: Normal No difficulty with prior moderate sedation, analgesia, general anesthesia and/or regional anesthesia. Physical status assessment (ASA class): 3 - Patient with severe systemic disease with functional limitation that is not life threatening NPO for procedure was explained to patient/surrogate. NPO since: 1999 The risks, benefits, and alternatives of the procedure and sedation/analgesia were explained to and discussed with the patient/surrogate in detail. All questions have been answered and the patient/surrogate understands the potential risks and benefits and consents to the procedure and the plan for sedation. PROCEDURE PLAN Planned Diagnostic Procedures: Right Heart Catheterization Planned Other Procedures: Moderate sedation SUMMARY [id number] [facility]-CV:[id number] 10/15/2023 /amando/ DOV RAMSEY Signed: 10/15/2023 09:20 /amando/ DOV MUHAMMAD CHIEF, CARDIOLOGY SECTION (111B) Cosigned: 10/16/2023 08:33 DOV RAMSEY-[facility]
--- OUTSIDE RECORDS SUMMARY | 2024-07-14 06:47 | XMS_ITS ---
Author Organization [facility] Address [address] [place] [address] Phone Care Team Providers Care Environmental Services Aide Name Role Phone Flores FOY, Aaron Tolliver Unavailable [phone] Shruthi Lizarraga Unavailable Unavailable Reason for Referral Date Encounter Description Provider Reason for Referral 06/27/20 Follow Up Sav Torres MD Refer l To Physician - SEE PCP FOR BP AND WT 06/20/20 NEW PROBLEM/EST PT Sav Torres MD R eferral To Physician - SEE PCP FOR BP AND WT Problems Includes: Active, inactive, and resolved Problems All Visits Onset Date Resolved Date Provider Condition S tatus Bone Pain Right Fingers 04/21/2018 Sav Torres MD Active Last Documented On 9 9:22AM ; [facility] Pain in Both Feet 01/21/2018 Aaron Tanner DPM Active Last Documented On 8 8:55AM ; [facility] Plan of Treatment Instructions to patient Instructions for patient see pcp for bp Last Documented On 1 10:04AM ; [facility] Lose weight Last Documented On 1 10:04AM ; [facility] Instructions for patient see pcp for bp Last Documented On 1 10:19AM ; [facility] Lose weight Last Documented On 1 9:20AM ; [facility] Instructions for patient see pcp for bp Last Documented On 9 8:56AM ; [facility] Instructions for patient to see pcp for bp Last Documented On 9 8:29AM ; [facility] Instructions for patient to see pcp for bp Last Documented On 9 10:29AM ; [facility] Instructions for patient see pcp for bp Last Documented On 9 10:25AM ; [facility] Instructions for patient to see pcp for bp Last Documented On 9 10:05AM ; [facility] Instructions for patient to see pcp for bp Last Documented On 9 9:18AM ; [facility] Instructions for patient to see pcp for bp Last Documented On 9 9:37AM ; [facility] Instructions for patient to see pcp for bp Last Documented On 8 8:58AM ; [facility] Assessments Includes: Assessments for all patient encounters No Assessments Recorded Instructions Includes: Instructions for all patient encounters Instructions to patient Instructions for patient see pcp for bp Last Documented On 1 10:04AM ; [facility] Lose weight Last Documented On 1 10:04AM ; [facility] Instructions for patient see pcp for bp Last Documented On 1 10:19AM ; [facility] Lose weight Last Documented On 1 9:20AM ; [facility] Instructions for patient see pcp for bp Last Documented On 9 8:56AM ; [facility] Instructions for patient to see pcp for bp Last Documented On 9 8:29AM ; [facility] Instructions for patient to see pcp for bp Last Documented On 9 10:29AM ; [facility] Instructions for patient see pcp for bp Last Documented On 9 10:25AM ; [facility] Instructions for patient to see pcp for bp Last Documented On 9 10:05AM ; [facility] Instructions for patient to see pcp for bp Last Documented On 9 9:18AM ; [facility] Instructions for patient to see pcp for bp Last Documented On 9 9:37AM ; [facility] Instructions for patient to see pcp for bp Last Documented On 8 8:58AM ; [facility] Medical Equipment - Implanted Devices Includes: Current and historical Devices No Medical Equipment Recorded Medications Includes: Current and historical Medications Current Medications (continue as prescribed) Cholecalciferol 25 MCG (1000 UT) Oral Tablet Chewable 06/20/2020 Provider: Diagnosis: Last Documented On 12:12PM By Karuna Chase ; [facility] Ketotifen Fumarate 0.025% Ophthalmic Solution 06/21/19 Provider: Diagnosis: Last Documented On 12:11PM By Karuna Chase ; [facility] PreserVision AREDS Oral Tablet 06/20/2020 Provider: Diagnosis: Last Documented On 12:10PM By Karuna Chase ; [facility] Fluticasone Furoate 50 MCG/A CT Inhalation Aerosol Powder Breath Activated 06/20/2020 Provider: Diagnosis: Last Documented On 12:10PM By Karuna Chase ; [facility] Lidocaine 5% External Ointment 06/20/2020 Provider: Diagnosis: Last Documented On 12:10PM By Karuna Chase ; [facility] Omeprazole 20 MG Oral Ta blet Delayed Release Disintegrating 06/20/2020 Provider: Diagnosis: Last Documented On 1 12:09PM By Karuna Chase ; [facility] Lisinopril 40 MG Oral Tablet 06/20/2020 Provider: Diagnosis: Last Documented On 12:09PM By Karuna Chase ; [facility] Accu-Chek Soft Touch Lancets Miscellaneous 06/20/2020 Provider: Diagnosis: Last Documented On 12:09PM By Karuna Chase ; [facility] Droplet Pen [place] 32G X 5 MM Miscellaneous Provider: Diagnosis: Last Documented On 1 12:08PM By Karuna Chase ; [facility] Accu-Chek Softclix Lancet Dev Kit 06/20/2020 Provide r: Diagnosis: Last Documented On 1 12:07PM By Karuna Chase ; [facility] metFORMIN HCl 500 MG Oral Tablet 06/20/2020 Provider : Diagnosis: Last Documented On 12:07PM By Karuna Chase ; [facility] Refresh Contacts Drops Solution 06/20/2020 Provider: Diagnosis: Last Documented On 1 12:11PM By Karuna Chase ; [facility] Clindamycin HCl 300 MG Oral Capsule 06/18/2020 Provi jaqui: Diagnosis: Last Documented On 1 9:08AM By Karuna Chase ; [facility] Acetaminophen 325 MG Oral Tablet 05/11/2020 Provider : Diagnosis: Last Documented On 9:09AM By Karuna Chase ; [facility] Ketoconazole 2% External Shampoo 04/24/2020 Provider : Diagnosis: Last Documented On 9:09AM By Karuna Chase ; [facility] Curity Alcohol Preps 70% Pad 04/16/2020 Provider: Diagnosis: Last Documented On 9:09AM By Karuna Chase ; [facility] Alogliptin Benzoate 25 MG Oral Tablet 04/16/2020 Pro vider: Diagnosis: Last Documented On 1 9:09AM By Karuna Chase ; [facility] Vitamin D3 25 MCG (1000 UT) Oral Tablet 04/06/2020 P rovider: Diagnosis: Last Documented On 1 9:09AM By Karuna Chase ; [facility] Lantus SoloStar 100 UNIT/ML Subcutaneous Solutio n Pen-injector 04/06/2020 Provider: Diagnosis: Last Documented On 9:09AM By Karuna Chase ; [facility] Meloxicam 15 MG Oral Tablet 04/04/2020 Provider: Diagnosis: Last Documented On 1 9:09AM By Karuna Chase ; [facility] glipiZIDE 10 MG Oral Tablet 04/04/2020 Provider: Diagnosis: Last Documented On 1 9:09AM By Karuna Chase ; [facility] Ezetimibe 10 MG Oral Tablet 04/04/2020 Provider: Diagnosis: Last Documented On 1 9:09AM By Karuna Chase ; [facility] amLODIPine Besylate 2.5 MG Oral Tablet 04/04/2020 Pr ovider: Diagnosis: Last Documented On 1 9:09AM By Karuna Chase ; [facility] Past Medications on file Bactrim DS 800-160MG Oral Tablet 06/23/2018 - 07/04/19 Provider: Aaron Tanner DPM Diagnosis: twice a day Last Documented On 9 12:06PM By Radha Hunter ; [facility] Keflex 500 MG OR CAPS 06/10/2018 - 06/13/2018 Provider : Sav Torres MD Diagnosis: Last Documented On 9 12:22PM By Jenna Boateng ; [facility] Whitethorn 7.5-325 MG OR TABS 06/09/2018 - 06/14/2018 Provi jaqui: Sav Torres MD Diagnosis: Last Documented On 9 1:46PM By Rehana Morales ; [facility] Whitethorn 7.5-325MG Oral Tablet 04/08/2018 - 04/15/2018 Pr ovider: Aaron Tanner DPM Diagnosis: 1-2 po q 4-6h prn pain (surgery 04/03/18) Last Documented On 9 10:16AM By Radha Hunter ; [facility] Whitethorn 7.5-325MG Oral Tablet 04/02/2018 - 04/09/2018 Pr ovider: Aaron Tanner DPM Diagnosis: 1-2 po q 4-6h prn pain (surgery 04/03/18) Last Documented On 9 9:50AM By Loly Muhammad ; [facility] AmLODIPine Besylate 5MG Oral Tablet 01/21/2018 - 06/20 Provider: Diagnosis: Last Documented On 1 12:05PM By Karuna Chase ; [facility] Lisinopril 40MG Oral Tablet 01/21/2018 - 06/20/2020 Pr ovider: Diagnosis: Last Documented On 1 12:05PM By Karuna Chase ; [facility] MetFORMIN HCl 500MG Oral Tablet 01/21/2018 - Provider: Diagnosis: Last Documented On 1 12:05PM By Karuna Chase ; [facility] Hydrocodone-Acetaminophen 5-325MG Oral Tablet 01/22/20 18 - 06/20/2020 Provider: Diagnosis: Last Documented On 1 12:05PM By Karuna Chase ; [facility] GlipiZIDE 5MG Oral Tablet 01/21/2018 - 06/20/2020 Prov ider: Diagnosis: Last Documented On 1 12:05PM By Karuna Chase ; [facility] Meloxicam 7.5MG Oral Tablet 01/21/2018 - 06/20/2020 Pr ovider: Diagnosis: Last Documented On 1 12:05PM By Karuna Chase ; [facility] Refresh Optive 0.5-0.9% Ophthalmic Solution 01/21/2018 - 06/20/2020 Provider: Diagnosis: Last Documented On 1 12:05PM By Karuna Chase ; [facility] Medications Administered Includes: Administered Medications in patient's chart No Administered Medications Recorded Results Includes: Results from 07/15/2023 through 07/14/2024 No Results Recorded For Specified Dates History of Present Illness History of Present Illness not supported for this document type No History of Present Illness Recorded Social History Description Last Updated Alcohol use 06/20/2020 Last Documented On 1 2:38PM ; [facility] Caffeine use 06/20/2020 Last Documented On 1 2:38PM ; [facility] Not a current smoker. 06/20/2020 Last Documented On 1 2:38PM ; [facility] Not exercising regularly 06/20/2020 Last Documented On 1 2:38PM ; [facility] Non-smoker 06/20/2020 Last Documented On 1 2:38PM ; [facility] No tobacco use 01/21/2018 Last Documented On 8 9:45AM ; [facility] Smoking status : Former smoker 8 Last Documented On 8 9:45AM ; [facility] No recent change in diet 01/21/2018 Last Documented On 8 9:45AM ; [facility] Not a current smoker 01/21/2018 Last Documented On 8 9:45AM ; [facility] Not using drugs 01/21/2018 Last Documented On 8 9:45AM ; [facility] Medical History Includes: Medical History in patient's chart Description Last Updated Arthritis 06/20/2020 Last Documented On 1 2:38PM ; [facility] Back surgery neck x2 06/20/2020 Last Documented On 1 2:38PM ; [facility] Heartburn / Acid Reflux 06/20/2020 Last Documented On 1 2:38PM ; [facility] Hernia repair 06/20/2020 Last Documented On 1 2:38PM ; [facility] Hypertension 06/20/2020 Last Documented On 1 2:38PM ; [facility] Past medical/surgical history [use for f ree text] 06/20/2020 Last Documented On 1 2:38PM ; [facility] Past Surgical History: Sinus surgery, fi nger surgery, toe surgery 06/20/2020 Last Documented On 1 2:38PM ; [facility] No recent immunization for flu 1 Last Documented On 1 2:38PM ; [facility] No recent immunization for pneumococcal pneumonia 06/20/2020 Last Documented On 1 2:38PM ; [facility] Arthritic joint problems 01/21/2018 Last Documented On 8 9:45AM ; [facility] History of diabetes mellitus 01/21/2018 Last Documented On 8 9:45AM ; [facility] Intermittent hypertension 01/21/2018 Last Documented On 8 9:45AM ; [facility] Family History Includes: Family History in patient's chart Description Last Updated Diabetes mellitus 06/20/2020 Last Documented On 1 2:38PM ; [facility] Stroke / Seizures 06/20/2020 Last Documented On 1 2:38PM ; [facility] Fraternal history of diabetes mellitus 0 06/23/2018 Last Documented On 9 11:44AM ; [facility] Maternal history of diabetes mellitus Last Documented On 9 11:44AM ; [facility] Family history of diabetes mellitus 12/31 Last Documented On 8 9:45AM ; [facility] Review of Systems Review of Systems not supported for this document type No Review of Systems Recorded Mental Status Description No anxiety Functional Status No Functional Status Recorded Physical Exam Physical Exam not supported for this document type No Physical Exam Recorded Allergies Includes: Active, inactive, and resolved Allergies Substance Type Reaction Onset Date Resolved Date Statu s Vancomycin HCl Allergy Skin Rashes / Eruption of skin 12/31 Active Last Documented On 1 10:04AM ; [facility] Insurance Includes: Active Insurance Policies Plan Name Member ID Group # Subscriber Relationship Effect porfirio Dates 1 - [facility] [id number] Cristino No [facility] Clinical Notes Includes: Signed Clinical Notes starting from 03/15/2022 No Clinical Notes Recorded
--- OUTSIDE RECORDS SUMMARY | 2024-07-14 06:47 | XMS_ITS | Clinical Summary ---
Author [facility] Address [address] [place] [address] Phone Care Team Providers Care Copier Repair Technician Name Role Phone Aaron Tanner DPM Unavailable [phone] Shruthi Lizarraga Unavailable Unavailable Reason for Visit and Chief Complaint The Chief Complaint is: [place]. foot pain Problems Includes: Problems addressed during this encounter and other active Problems All Visits Onset Date Resolved Date Provider Condition S tatus Bone Pain Right Fingers 04/21/2018 Sav Torres MD Active Last Documented On 9 9:22AM ; [facility], [facility] Pain in Both Feet 01/21/2018 Aaron Tanner DPM Active Last Documented On 8 8:55AM ; [facility], [facility] Plan of Treatment He has done well with the plantar fibroma excision, and in fact, I am going to release him from care. We did discuss the potential for recurrence of that particular issue. He and his are understanding of this. He does have a more acute problem, which is separately identifiable from the postoperative recovery process of his plantar fibroma. He has a paronychia of the third toe, right foot. The erythema is rather intense this is a low-grade cellulitis. We will place him on Bactrim DS twice a day for the next 10 days. We will have him soak in Epsom salts and water. We will apply a little Betadine to the area today. We will plan to see him back in the next 4 days for reevaluation. He is to call with questions or concerns. - Last Documented On 06/23/2018 11:44AM ; [facility] Instructions to patient Instructions for patient to see pcp for bp Last Documented On 9 10:29AM ; [facility] GAMEZ, [facility] Assessments Includes: Assessments from this encounter Findings status post plantar fibroma excision, right foot, doing well - Last Documented On 06/23/2018 11:44AM ; [facility] GAME[facility], [facility] Paronychia, third toe, right - Last Documented On 06/23/2018 11:44AM ; [facility]AME[facility] Instructions Includes: Instructions from this encounter Instructions to patient Instructions for patient to see pcp for bp Last Documented On 9 10:29AM ; [facility] Medical Equipment - Implanted Devices Includes: Current Devices No Medical Equipment Recorded Medications Includes: Medications discussed during this encounter and other current Medications New / Renewed during this visit Aaron Tanner DPM on 06/23/2018 Bactrim DS 800-160MG Oral Tablet Provider: Aaron Tanner DPM 10 day supply: 20 tablet, 0 refills Diagnosis: twice a day Pharmacy: [facility] #[id number] - [address] [id number] - Last Documented On 9 12:06PM By Radha Hunter ; [facility]STIE GAMEZ, KASH Current Medications (continue as prescribed) Cholecalciferol 25 MCG (1000 UT) Oral Tablet Chewable 06/20/2020 Provider: Diagnosis: Last Documented On 1 12:12PM By Karuna Chase ; KRISTIE GAMEZ, KASH Ketotifen Fumarate 0.025% Ophthalmic Solution 06/21/19 Provider: Diagnosis: Last Documented On 1 12:11PM By Karuna Chase ; KRISTIE GAMEZ, KASH PreserVision AREDS Oral Tablet 06/20/2020 Provider: Diagnosis: Last Documented On 1 12:10PM By Karuna Chase ; KASH KEENAN Fluticasone Furoate 50 MCG/A CT Inhalation Aerosol Powder Breath Activated 06/20/2020 Provider: Diagnosis: Last Documented On 1 12:10PM By Karuna Chase ; KRISTIE GAMEZ, KASH Lidocaine 5% External Ointment 06/20/2020 Provider: Diagnosis: Last Documented On 1 12:10PM By Karuna Chase ; [facility], [facility] Omeprazole 20 MG Oral Ta blet Delayed Release Disintegrating 06/20/2020 Provider: Diagnosis: Last Documented On 12:09PM By Karuna Chase ; [facility], [facility] Lisinopril 40 MG Oral Tablet 06/20/2020 Provider: Diagnosis: Last Documented On 12:09PM By Karuna Chase ; [facility], [facility] Accu-Chek Soft Touch Lancets Miscellaneous 06/20/2020 Provider: Diagnosis: Last Documented On 12:09PM By Karuna Chase ; [facility], [facility] Droplet Pen [place] 32G X 5 MM cellaneous Provider: Diagnosis: Last Documented On 12:08PM By Karuna Chase ; [facility], [facility] Accu-Chek Softclix Lancet Dev Kit 06/20/2020 Provide r: Diagnosis: Last Documented On 12:07PM By Karuna Chase ; [facility], [facility] metFORMIN HCl 500 MG Oral Tablet 06/20/2020 Provider : Diagnosis: Last Documented On 12:07PM By Karuna Chase ; [facility], [facility] Refresh Contacts Drops Solution 06/20/2020 Provider: Diagnosis: Last Documented On 12:11PM By Karuna Chase ; [facility], [facility] Clindamycin HCl 300 MG Oral Capsule 06/18/2020 Provi jaqui: Diagnosis: Last Documented On 1 9:08AM By Karuna Chase ; [facility], [facility] Acetaminophen 325 MG Oral Tablet 05/11/2020 Provider : Diagnosis: Last Documented On 1 9:09AM By Karuna Chase ; [facility], [facility] Ketoconazole 2% External Shampoo 04/24/2020 Provider : Diagnosis: Last Documented On 1 9:09AM By Karuna Chase ; [facility], [facility] Curity Alcohol Preps 70% Pad 04/16/2020 Provider: Diagnosis: Last Documented On 1 9:09AM By Karuna Chase ; [facility], [facility] Alogliptin Benzoate 25 MG Oral Tablet 04/16/2020 Pro vider: Diagnosis: Last Documented On 1 9:09AM By Karuna Chase ; [facility], [facility] Vitamin D3 25 MCG (1000 UT) Oral Tablet 04/06/2020 P rovider: Diagnosis: Last Documented On 1 9:09AM By Karuna Chase ; [facility], [facility] Lantus SoloStar 100 UNIT/ML Subcutaneous Solutio n Pen-injector 04/06/2020 Provider: Diagnosis: Last Documented On 1 9:09AM By Karuna Chase ; [facility], [facility] Meloxicam 15 MG Oral Tablet 04/04/2020 Provider: Diagnosis: Last Documented On 1 9:09AM By Karuna Chase ; [facility], [facility] glipiZIDE 10 MG Oral Tablet 04/04/2020 Provider: Diagnosis: Last Documented On 1 9:09AM By Karuna Chase ; [facility], [facility] Ezetimibe 10 MG Oral Tablet 04/04/2020 Provider: Diagnosis: Last Documented On 1 9:09AM By Karuna Chase ; [facility], [facility] amLODIPine Besylate 2.5 MG Oral Tablet 04/04/2020 Pr ovider: Diagnosis: Last Documented On 1 9:09AM By Karuna Chase ; [facility], [facility] Past Medications on file Keflex 500 MG OR CAPS 06/10/2018 - 06/13/2018 Provider : Sav Torres MD Diagnosis: Last Documented On 9 12:22PM By Jenna Boateng ; [facility], [facility] Eleva 7.5-325 MG OR TABS 06/09/2018 - 06/14/2018 Provi jaqui: Sav Torres MD Diagnosis: Last Documented On 9 1:46PM By Rehana Morales ; [facility], [facility] Eleva 7.5-325MG Oral Tablet 04/08/2018 - 04/15/2018 Pr ovider: Aaron Tanner DPM Diagnosis: 1-2 po q 4-6h prn pain (surgery 04/03/18) Last Documented On 9 10:16AM By Radha Hunter ; [facility], [facility] Eleva 7.5-325MG Oral Tablet 04/02/2018 - 04/09/2018 Pr ovider: Aaron Tolliver Flores DPM Diagnosis: 1-2 po q 4-6h prn pain (surgery 04/03/18) Last Documented On 9 9:50AM By Loly Muhammad ; [facility], [facility] Medications Administered Includes: Administered Medications from this encounter No Administered Medications Recorded Vital Signs Includes: Vital Signs from this encounter Vital Name 06/23/2018 11:05A Blood Pressure Sitting (mmHg) 94/79 Pulse Rate-Sitting (bpm) 79 Height (in) 72 Weight (lb) 215 Body Mass Index (kg/m2) 29.2 Body Surface Area (m2) 2.2 Note: [facility] Last Documented: On 06/23/2018 11:08A M ; [facility] Results Includes: Results discussed during this encounter No Results Recorded For Specified Dates History of Present Illness Includes: History of Present Illness from this encounter PEDRO No is a 58 year old male. - Medication list reviewed with patient. This is a 58-year-old male who is seen for evaluation of the foot, ankle and lower leg on the right side. He is status post fibroma excision, right foot. He has done very well with this. He does not have any complaints. He is fully mobile. He is quite pleased with that. He does point out to me today that he has some redness of the nail and eponychial area of the third toe, right foot. He tells me he had a little blood underneath that nail. He sterilized the needle and tried to open that area and subsequently has developed redness around that area. Social History Description Last Updated Alcohol use 06/20/2020 Last Documented On 9 10:29AM ; [facility] No tobacco use 01/21/2018 Last Documented On 9 10:29AM ; [facility], [facility] Smoking status : Former smoker 8 Last Documented On 9 10:29AM ; [facility], [facility] No recent change in diet 01/21/2018 Last Documented On 9 10:29AM ; [facility], [facility] Not a current smoker 01/21/2018 Last Documented On 9 10:29AM ; [facility], [facility] Not using drugs 01/21/2018 Last Documented On 9 10:29AM ; [facility], [facility] Procedures and Surgical History Includes: Procedures from this encounter Procedures Code Diagnosis Performing Provider Service L ocation Service Date Clinical summary provided to patient Last Documented On 9 10:29AM ; [facility], [facility] Medical History Includes: Medical History addressed during this encounter Description Last Updated neck surgery ~toe surgery ~acid reflux 0 06/20/2020 Last Documented On 9 10:29AM ; [facility], [facility] Arthritic joint problems 01/21/2018 Last Documented On 9 10:29AM ; [facility], [facility] History of diabetes mellitus 01/21/2018 Last Documented On 9 10:29AM ; [facility], [facility] Intermittent hypertension 01/21/2018 Last Documented On 9 10:29AM ; [facility], [facility] Family History Includes: Family History addressed during this encounter Description Last Updated Fraternal history of diabetes mellitus 0 06/23/2018 Last Documented On 9 11:44AM ; [facility], [facility] Maternal history of diabetes mellitus Last Documented On 9 11:44AM ; [facility], [facility] Review of Systems Includes: Review of Systems from this encounter Systemic: Not feeling tired (fatigue), no recent weight loss, and no recent weight gain. No edema. Head: No headache and no sinus pain. Eyes: No vision problems. Vision problems. No glaucomatous visual field defect. Otolaryngeal: No hearing loss and no tinnitus. No nasal symptoms. Cardiovascular: No chest pain or discomfort and no palpitations. Pulmonary: No daytime asthma symptoms, no cough, and no chronic cough. No wheezing. Gastrointestinal: No heartburn and no abdominal pain. Endocrine: No hot flashes and no muscle weakness. Hematologic: No easy bleeding and no tendency for easy bruising. Musculoskeletal: No lower back pain. No soft tissue swelling and no localized joint pain. Neurological: No dizziness, no convulsions, and no numbness. Psychological: No anxiety, no emotional lability, no depression, and no insomnia. Not crying for no reason. Skin: No dry skin, no rash, and no ulcers. Allergic and Immunologic: No complaint of seasonal allergic reaction. Mental Status Includes: Mental Status from this encounter Description No anxiety Functional Status Includes: Functional Status from this encounter No Functional Status Recorded Physical Exam Includes: Physical Exam from this encounter Allergies Includes: Active Allergies Substance Type Reaction Onset Date Resolved Date Statu s Vancomycin HCl Allergy Skin Rashes / Eruption of skin 12/31 Active Last Documented On 1 10:04AM ; [facility], [facility] Encounters Encounter Provider Location Date Check-In Time Check- Out Time Diagnosis [facility] 9 9:55AM 11:43AM Insurance Includes: Active Insurance Policies Plan Name Member ID Group # Subscriber Relationship Effect porfirio Dates - [facility] [id number] Cristino No Self Clinical Notes Includes: Clinical Notes from this encounter No Clinical Notes Recorded
--- OUTSIDE RECORDS SUMMARY | 2024-07-14 06:47 | XMS_ITS | Encounter Summary ---
Author Name [facility] ([place] Organization [facility] Address [address] [place] [id number] Care Team Providers Care Eligibility Technician Name Role Phone GODFREY SALAS Primary Care [...] PART A May 30, 2024 PART A [id number] WIGGLESWO RTH,STEWA RT PATIENT MEDICARE (WNR) MEDICARE (M) PART B May 30, 2024 PART B [id number] WIGGLESWO RTH,STEWA RT PATIENT [facility] 2017 SELEC T RETIR ED May 16, 2018 [facility] [id number] [phone] WIGGLESWO RTH,STEWA RT PATIENT [facility] 2017 [employer] A Apr 01, 2017 DODA [id number] WIGGLESWO RTH,STEWA RT PATIENT [facility] 2024 PRIME RETIR ED Apr 01, 2024 [facility] [id number] [phone] WIGGLESWO RTH,STEWA RT PATIENT Selected Encounter This section includes the information on record at DC for the Encounter. Date/Time Encounter Type Encounter Description Reason Provider Source May 28, 2024 10:10 AM MTMS BY ORACIO SMART 15 MIN TELEPHONE/MIK LEONARDO ICD-10-CM I42.9 Cardiomyopathy, unspecified DEJA,PHAM E IHE Encounter Template Text not used by DC Assessments - Encounter Diagnoses This section includes the primary and secondary diagnoses documented for the Encounter. Date/Time Primary/Secondary Diagnosis Diagnosis Name Provider Source May 28, 2024 10:10 AM PRIMARY Cardiomyopathy, unspecified DEJA,PHAM E [place] Plan of Treatment: Future Appointments (+ 6 months) and Future Tests (+/- 45 days) The Plan of Treatment section includes future care activities for the patient from all [place] treatmentfacilities. This section includes future appointments and future orders which are active, pending or scheduled. Future Appointments This section includes appointments that were scheduled to occur 6 months from the date of the Encounter, up to a maximum of 20 appointments. The data comes from all [place] treatment facilities. Appointment Date/Time Appointment Type Appointme nt Facility Name Jun 03, 2024 10:00 AM [facility] [facility] Jun 05, 2024 09:30 AM [facility] [facility] Jun 17, 2024 08:00 AM AMBULATORY - MEDICINE [facility] [facility] Jun 17, 2024 09:00 AM [facility] [place] [facility] Jun 25, 2024 08:00 AM [facility] Jun 26, 2024 08:20 AM AMBULATORY - SURGERY [place] Jun 29, 2024 01:30 PM [facility] [place] [facility] Jul 15, 2024 09:00 AM [facility] [place] [facility] Jul 27, 2024 08:00 AM [facility] - [facility]GERY [place] [facility] Jul 29, 2024 01:00 PM [facility] [facility] August 03, 2024 07:00 AM [facility] [place] [facility] Sep 23, 2024 10:00 AM AMBULATORY - MEDICINE [place] [facility] Nov 03, 2024 09:40 AM AMBULATORY - SURGERY [place] [facility] Active, Pending, and Scheduled Orders This section includes a listing of several types of active, pending, and scheduled orders, including clinic medications orders, diagnostic test orders, procedure orders and consult orders; where the start date of the order is 45 days before the date of the Encounter or 45 days after the date of theEncounter. The data comes from all [place] treatment facilities. Test Date/Time Test Type Test Details Facility Name Jun 26, 2024 09:07 AM Consult Order PAIN CLINI C ANESTHESIOLOGY/PAIN CD OUTPATIENT Cons Poultry Hatchery Supervisor's Choice [facility] Lab Results: +/- 30 days of the encounter This section includes the Chemistry and Hematology Lab Results on record with DC for the patient. Radiology Reports and Pathology Reports are provided separately, in subsequent sections. Lab Results This section contains the Chemistry/Hematology Results that were resulted 30 days before or 30 daysafter the date of the Encounter. Date/Time Source Result Type Result - Unit Interpretation Reference Range Specimen Type Comment May 05, 2024 09:06 AM [facility] MICROALBUMIN/CREAT RATIO URINE Specimen Type: URINE No comment entered. Ordering Provider: MARTHA HENLEY Report Released Date/Time: Mar 23, 2024 10:36 AM Reporting Lab: [address] [address] Performing Lab: [address] [address] CREATININE 54.5 mg/dL MICROALBUMIN QUANT 64.7 mg/L H 0.0-30.0 .MICROALBUMIN/CREA RATIO 118.7 ug/mg{creat} May 05, 2024 08:58 AM [facility] GLYCOHEMOGLOBIN BLOOD Specimen Type: BLOOD Comment: [place]-DoD guidelines for A1c interpretation: Glycemic control targets [...] 8.73 and 9.27. Ref: https://ngsp.org/CAPdata.asp. The in-house Userlike Live Chat-Flying Pig Digital D-100 analyzer has a historical CV <= 2%. Contact the laboratory for further performance characteristics of this assay. Ordering Provider: MARTHA HENLEY Report Released Date/Time: Mar 23, 2024 10:36 AM Reporting Lab: [address] [address] Performing Lab: [address] [address] GLYCOHEMOGLOBIN 8.0 H 4.4-5.6 May 05, 2024 08:58 AM [facility] 1 PLASMA Specimen Type: PLASM A [...] Provider: MARTHA HENLEY Report Released Date/Time: Mar 23, 2024 10:36 AM Reporting Lab: [facility] [address] [facility] [address] Performing Lab: [address] [address] CREATININE 1.34 mg/dL H 0.72-1.25 UREA NITROGEN 29 mg/dL H 9-25 GLUCOSE 186 mg/dL H 74-100 SODIUM 137 mmol/L 136-145 POTASSIUM 4.3 mmol/L 3.5-5.1 CHLORIDE 105 mmol/L 98-107 CO2 23 mmol/L 22-29 CALCIUM 9.4 mg/dL 8.4-10.2 ANION GAP 9 meq/L 3-19 eGFR (CKD-EPI) 59 Radiology Reports: +/- 30 days of the [...] the Encounter. The data comes from all [place] treatment facilities. Date/Time Radiology Report Provider Source Jun 17, 2024 08:36 AM MRI C SPINE W/O CO NTRAST: KATE CARTER [id number] -1960 M Ex Date: JUN 17, 2024@08:36 Req Phys: MARTHA HENLEY Pat Loc: XIOMY PACT JACI 1-2 (Req'g Lo Img Loc: [facility] Service: Unknown [place] [id number] (Case [id number] COMPLETE) MRI C SPINE W/O CONTRAST (MRI Detailed) CPT:04529 Reason for Study: SEE CLINICAL HISTORY Clinical History: STATUS OF PLAIN FILMS:Done, exam date/impression above. MRI Screening (Required): IMPLANTED DEVICE DOCUMENTATION 03/11/2024 09:29 Local Title: IMPLANTED CARDIAC DEVICE Standard Title: CLINICAL WARNING Patient has an Implanted Cardiac Device. Cardiac Device Type: BIV ICD Custom Studio Coordinator: [facility] Device details: Generator - [employer]don, model [id number], SN [id number]. RA lead - [employer], model [id number], SN [id number]. RV lead - [employer], model 7122Q, SN [id number]. LV - [employer], model 1458QL, SN [id number]. Parameters: RA - threshold - 0.25v@0.5ms, 460 ohms, sensing - >5mV RV - threshold - 0.25v@0.5ms, 640 ohms, sensing - >12mV LV - threshold - 1.25v@0.5ms, 700 ohms. DFT's - were not assessed. Shock coil impedance - 73 ohms. Implant 03/10/2024 Dr. Mckinney Signed by: /es/ RUTHANN BARONE RN 03/11/2024 09:32 Does the have any Cardiac Implants? ICD Does the [place] have any implanted stimulators? None Does the [place] have cochlear implants? No Does the [place] have Cerebral aneurysm clip(s)? No Does the [place] have any shrapnel? No If yes, where in your body? Please list other implants not listed above: MRI table has a weight limit of 551 lbs. 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 Date/Time Encounter Note(s) Provider Source May 28, 2024 10:10 AM PHARMACY TELEPHONE ENCOUNTER NOTE: LOCAL TITLE: CARDIOLOGY PHARMACOTHERAPY TELEPHONE NOTE STANDARD TITLE: PHARMACY TELEPHONE ENCOUNTER NOTE DATE OF NOTE: MAY 28, 2024@10:10 ENTRY DATE: MAY 28, 2024@10:10:25 AUTHOR: PHAM SHORT COSIGNER: URGENCY: STATUS: COMPLETED Spoke with KATE CARTER a 63 yo on phone to review HF management. [place] reports his breathing has been good and denies SOA. [place] denies edema, PND. reports he uses 1 pillow under his head with head of bed raised a couple inches to help breathing d/t sinuses and for comfort, although he states he is able to lay flat on the couch w/o issue. [place] states he has had his bed this way for about 10 years. [place] denies dizziness. Allergies: VANCOMYCIN, GABAPENTIN, PREGABALIN, SIMVASTATIN, ROSUVASTATIN Per 09/25/23 Cardiology Clinic Note: PMH: 1. 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 Nonflow-limiting RCA disease. LVEF 30% with anterior wall motion abnormality. No personal h/o TN. 2. HTN 3. DM2, diagnosed in 2004 4. Hyperlipidemia SH: EtOH: denies Tobacco Use: denies Exercise: cardiac rehab MWF Diet: Breakfast: 3 egg omlette w/spinach, broccoli, tomatoes, onion, cheese; occasionally meat (leana richter); home canned salsa Lunch: apple Dinner: salad, salmon, brisket, burrito Snacks: apples, nuts Additional Salt Intake: does not add Fluid Intake: water, green tea, coffee Restaurant Meals: 1x/week Home BP Log: Takes Medications 5a/5p; Checks BP 7a/7-8p Date BP HR Weight 05/17 110/79 78 [...] 124/76 77 196.6 05/28 125/82 88 194.8 PREVIOUS ENCOUNTER 04/09/24: Date BP HR Weight 04/01 112/85 79 196.2 121/74 66 04/02 122/72 78 194.8 106/74 72 04/03 116/70 79 194 116/68 82 04/04 117/82 89 195.4 109/66 81 04/05 113/77 78 195.6 132/79 76 04/06 127/81 77 197 112/72 72 04/07 119/74 75 194.6 116/71 73 04/08 128/81 84 195.6 120/76 77 04/09 110/79 88 194.4 01/17/24: Date BP HR Weight 01/07 120/73 69 191.6 109/70 65 01/08 123/77 67 190.4 109/67 71 01/09 118/73 75 189.4 120/68 57 01/10 116/68 68 190.6 115/59 65 01/11 121/70 69 191.8 123/72 61 01/12 122/74 72 190.4 114/66 60 01/13 126/72 74 191.6 107/65 76 01/14 112/76 76 191 120/76 66 01/15 110/77 72 194 117/69 69 01/16 110/76 84 193.8 OBJECTIVE FINDINGS: Vitals/Labs: BP: 129/80 (03/23/2024 10:05) Pulse: 67 (03/23/2024 10:05) Weight: 202.8 lb [91.99 kg] (03/23/2024 10:05) BODY MASS INDEX - 27.6 LABS: PANEL 1 [place]. date GLUCOSE BUN [...] Indicates COMMENTS AVAILABLE...Refer to Interim Lab Report. 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 The rate and rhythm during this exam was most suggestive of normal sinus at 60-70bpm. The study was technically difficult. Compared to previous echo, there are no significant changes. The left ventricle is mildly dilated. Left ventricular systolic function is moderately reduced. The estimated LVEF based upon the biplane Payan MOD technique is '30-35%'. Left Ventricle The left ventricle is mildly dilated. There is no thrombus. There is normal left ventricular wall thickness. Left ventricular systolic function is moderately reduced. The estimated LVEF based upon the biplane Payan MOD technique is '30-35%'. There is grade 1 diastolic dysfunction (mild). The LV apex is akinetic . The inferolateral wall is hypokinetic . Right Ventricle The right ventricle is mildly dilated. There is a pacemaker lead in the right ventricle. The right ventricular systolic function is normal. Unable to estimate RVSP due to inadequate TR signal. Atria The left atrial volume index (ml/m2) is 'mildly dilated (35-41ml/m2)'. The right atrial size is normal. Based upon the IVC size and respiratory variation, the estimated RAP is '3mmHg (<=21mm; >50% collapse)'. The interatrial septum is intact with no evidence for an atrial septal defect. Mitral Valve There is mild mitral annular calcification. There is no mitral stenosis. There is trace mitral regurgitation. Tricuspid Valve The tricuspid valve is normal. There is no tricuspid stenosis. There is no tricuspid regurgitation. Aortic Valve The aortic valve is trileaflet. The aortic valve opens well. No hemodynamically significant valvular aortic stenosis. No aortic regurgitation. Pulmonic Valve The pulmonic valve leaflets are thin and pliable; valve motion is normal. There is no pulmonic valvular stenosis. Trace pulmonic valvular regurgitation. Great Vessels The aortic root is normal size. The aorta at the Sinuses of Valsalva (leading edge to leading edge method) is 3.3 cm in diameter. The maximally visualized portion of the ascending aorta appears normal sized. The ascending aorta is 3.3 cm in diameter, at the maximal area visualized. The pulmonary artery is not well visualized. Pericardium/Pleural There is no pericardial effusion. Quality and Procedure A complete 2D Echo with Doppler, color flow and M-Mode was performed. The study was technically good. Reading Physician: Eduar Emery MD 04/08/2024 12:35 PM Ordering Physician: Jesse Nguyen MD, PhD Referring Physician: JESSE NGUYEN Performed By: May Lange Active and Recently Outpatient Medications (excluding Supplies): [...] TAKE ONE TABLET BY MOUTH EVERY ACTIVE (S) MORNING Indication: FOR HEART FAILURE 6) EZETIMIBE 10MG TAB TAKE ONE TABLET BY MOUTH EVERY EVENING ACTIVE Indication: FOR CHOLESTEROL 7) FLUTICASONE PROP 50MCG 120D NASAL INHL USE 1 SPRAY IN EACH ACTIVE NOSTRIL DAILY FOR NASAL ALLERGY 8) GLIPIZIDE 10MG TAB TAKE TWO TABLETS BY MOUTH TWICE A DAY FOR ACTIVE DIABETES 9) INSULIN,GLARGINE 100 UNT/ML 3ML SOLOSTAR INJECT 24 UNITS ACTIVE UNDER THE SKIN DAILY -DISCARD PEN AFTER 28 DAYS OF USE. REPLACES GLARGINE-YFGN Indication: FOR BLOOD SUGAR 10) LATANOPROST 0.005% OPH SOLN PUT 1 DROP IN BOTH EYES AT ACTIVE BEDTIME Indication: FOR GLAUCOMA 11) METFORMIN HCL 500MG 24HR SA TAB TAKE TWO TABLETS BY MOUTH ACTIVE TWICE A DAY FOR DIABETES 12) METOPROLOL SUCCINATE 100MG SA TAB TAKE ONE AND ONE-HALF ACTIVE (S) TABLETS BY MOUTH DAILY Indication: FOR HEART 13) MULTIVIT/OPHTH AREDS2/LUTE/ZEAX CAP/TAB TAKE 1 SOFTGEL BY ACTIVE MOUTH TWICE A DAY AFTER MEALS FOR EYE HEALTH 14) OMEPRAZOLE 20MG EC CAP TAKE ONE CAPSULE BY MOUTH TWICE A DAY ACTIVE FOR STOMACH. TAKE ON AN EMPTY STOMACH 15) ROSUVASTATIN CA 40MG TAB TAKE ONE TABLET BY MOUTH DAILY ACTIVE (S) Indication: FOR CHOLESTEROL 16) SACUBITRIL 97MG/VALSARTAN 103MG TAB TAKE 1 TABLET BY MOUTH ACTIVE TWICE A DAY Indication: FOR HEART FAILURE 17) SPIRONOLACTONE 25MG TAB TAKE ONE TABLET BY MOUTH DAILY ACTIVE (S) Indication: FOR HEART FAILURE Inactive Outpatient Medications [...] OXIDE 420MG TAB 840MG MOUTH DAILY ACTIVE 23 Total Medications A/P: HFrEF: denies s/sx of fluid overload. [place]'s weight relatively stable at this time. 's BP/HR fairly well controlled. No changes at this time as previous discussions with Dr. Nguyen holding off on further BB titration. Refills: glucose tabs Medication Plan: Empagliflozin 10mg qAM Metoprolol Succinate 150mg daily Spironolactone 25mg daily Sacubitril 97mg/Valsartan 103mg BID F/U: via telephone in ~4-6 weks verbalized understanding of above and agreed to call if issues arise. Time spent on phone with : 19 min PBM PharmD Pharmacotherapy Rem V12: PHARMACIST INTERVENTIONS: HEART FAILURE Medication monitoring, no dosage change required, continue to monitor and assess Alert to GIANA Mason: reports he is having low BG 2-3x/week. He reports yesterday BG dropped to 55 and he had a headache. Reviewed management of hypoglycemia. He states he utilizes the rule of 15, but glucose tabs cause his BG to skyrockets (~170-200). [place] confirms taking glipizide 30 min prior to meals. does state he has been eating less carbs. Encouraged to ensure he eat recommended carbohydrates. /amando/ PHAM SHORT PHARMD, BCACP Clinical Petroleum Refining Equipment Operator Signed: 05/28/2024 14:40 Receipt Acknowledged By: 06/11/2024 12:52 /es/ QUENTIN MASON MSN,PRIMARY SUBSTANCE ABUSE COUNSELOR,MLDE,ACNS-BC,CDE DIABETES CLINICAL NURSE SPECIALIST [facility] SHORT[facility]
--- OUTSIDE RECORDS SUMMARY | 2024-07-14 06:47 | XMS_ITS | Clinical Summary ---
Author Organization [facility] Address [address] [place] [address] Phone Care Team Providers Care Receiving Inspector Name Role Phone Flores FOY, Aaron Tolliver Unavailable [phone] Shruthi Lizarraga Unavailable Unavailable Reason for Referral Date Encounter Description Provider Reason for Referral 06/27/20 Follow Up Sav Torres MD Referra l To Physician - SEE PCP FOR BP AND WT Reason for Visit and Chief Complaint The Chief Complaint is: RRF pain Problems Includes: Problems addressed during this encounter and other active Problems All Visits Onset Date Resolved Date Provider Condition S tatus Bone Pain Right Fingers 04/21/2018 Sav Torres MD Active Last Documented On 9 9:22AM ; [facility] Pain in Both Feet 01/21/2018 Aaron Tanner DPM Active Last Documented On 8 8:55AM ; [facility] Plan of Treatment I recommended that the patient continue with normal activities. Patient will follow up as needed. - Last Documented On 06/28/2020 11:32AM ; [facility] Instructions to patient Instructions for patient see pcp for bp Last Documented On 1 10:04AM ; [facility] Lose weight Last Documented On 10:04AM ; [facility] Assessments Includes: Assessments from this encounter Findings Infected puncture wound - Last Documented On 06/28/2020 11:32AM ; [facility] Instructions Includes: Instructions from this encounter Instructions to patient Instructions for patient see pcp for bp Last Documented On 1 10:04AM ; [facility], [facility] Lose weight Last Documented On 10:04AM ; [facility] Medical Equipment - Implanted Devices Includes: Current Devices No Medical Equipment Recorded Medications Includes: Medications discussed during this encounter and other current Medications Current Medications (continue as prescribed) Cholecalciferol 25 MCG (1000 UT) Oral Tablet Chewable 06/20/2020 Provider: Diagnosis: Last Documented On 12:12PM By Karuna Chase ; [facility], [facility] Ketotifen Fumarate 0.025% Ophthalmic Solution 06/21/19 Provider: Diagnosis: Last Documented On 12:11PM By Karuna Chase ; [facility], [facility] PreserVision AREDS Oral Tablet 06/20/2020 Provider: Diagnosis: Last Documented On 12:10PM By Karuna Chase ; [facility], [facility] Fluticasone Furoate 50 MCG/A CT Inhalation Aerosol Powder Breath Activated 06/20/2020 Provider: Diagnosis: Last Documented On 12:10PM By Karuna Chase ; [facility], [facility] Lidocaine 5% External Ointment 06/20/2020 Provider: Diagnosis: Last Documented On 12:10PM By Karuna Chase ; [facility] CVS Omeprazole 20 MG Oral Ta blet Delayed Release Disintegrating 06/20/2020 Provider: Diagnosis: Last Documented On 12:09PM By Karuna Chase ; [facility] Lisinopril 40 MG Oral Tablet 06/20/2020 Provider: Diagnosis: Last Documented On 1 12:09PM By Karuna Chase ; [facility] Accu-Chek Soft Touch Lancets Miscellaneous 06/20/2020 Provider: Diagnosis: Last Documented On 12:09PM By Karuna Chase ; [facility] Droplet Pen Bascom 32G X 5 MM Miscellaneous Provider: Diagnosis: Last Documented On 1 12:08PM By Karuna Chase ; [facility], [facility] Accu-Chek Softclix Lancet Dev Kit 06/20/2020 Provide r: Diagnosis: Last Documented On 1 12:07PM By Karuna Chase ; [facility], [facility] metFORMIN HCl 500 MG Oral Tablet 06/20/2020 Provider : Diagnosis: Last Documented On 12:07PM By Karuna Chase ; [facility], [facility] Refresh Contacts Drops Solution 06/20/2020 Provider: Diagnosis: Last Documented On 1 12:11PM By Karuna Chase ; [facility], [facility] Clindamycin HCl 300 MG Oral Capsule 06/18/2020 Provi jaqui: Diagnosis: Last Documented On 1 9:08AM By Karuna Chase ; [facility], [facility] Acetaminophen 325 MG Oral Tablet 05/11/2020 Provider : Diagnosis: Last Documented On 9:09AM By Karuna Chase ; [facility], [facility] Ketoconazole 2% External Shampoo 04/24/2020 Provider : Diagnosis: Last Documented On 1 9:09AM By Karuna Chase ; [facility], [facility] Curity Alcohol Preps 70% Pad 04/16/2020 Provider: Diagnosis: Last Documented On 1 9:09AM By Karuna Chase ; [facility], [facility] Alogliptin Benzoate 25 MG Oral Tablet 04/16/2020 Pro vider: Diagnosis: Last Documented On 1 9:09AM By Karuna Chase ; [facility], [facility] Vitamin D3 25 MCG (1000 UT) Oral Tablet 04/06/2020 P rovider: Diagnosis: Last Documented On 1 9:09AM By Karuna Chase ; [facility], [facility] Lantus SoloStar 100 UNIT/ML Subcutaneous Solutio n Pen-injector 04/06/2020 Provider: Diagnosis: Last Documented On 1 9:09AM By Karuna Chase ; [facility], [facility] Meloxicam 15 MG Oral Tablet 04/04/2020 Provider: Diagnosis: Last Documented On 1 9:09AM By Karuna Chase ; [facility], [facility] glipiZIDE 10 MG Oral Tablet 04/04/2020 Provider: Diagnosis: Last Documented On 1 9:09AM By Karuna Chase ; [facility], [facility] Ezetimibe 10 MG Oral Tablet 04/04/2020 Provider: Diagnosis: Last Documented On 1 9:09AM By Karuna Chase ; [facility], [facility] amLODIPine Besylate 2.5 MG Oral Tablet 04/04/2020 Pr ovider: Diagnosis: Last Documented On 1 9:09AM By Karuna Chase ; [facility], [facility] Past Medications on file Bactrim DS 800-160MG Oral Tablet 06/23/2018 - 07/04/19 Provider: Aaron Tanner DPM Diagnosis: twice a day Last Documented On 9 12:06PM By Radha Hunter ; [facility], [facility] Keflex 500 MG OR CAPS 06/10/2018 - 06/13/2018 Provider : Sav Torres MD Diagnosis: Last Documented On 9 12:22PM By Jenna Boateng ; [facility], [facility] Counce 7.5-325 MG OR TABS 06/09/2018 - 06/14/2018 Provi jaqui: Sav Torres MD Diagnosis: Last Documented On 9 1:46PM By Rehana Morales ; [facility], [facility] Counce 7.5-325MG Oral Tablet 04/08/2018 - 04/15/2018 Pr ovider: Aaron Tanner DPM Diagnosis: 1-2 po q 4-6h prn pain (surgery 04/03/18) Last Documented On 9 10:16AM By Radha Hunter ; [facility], [facility] Counce 7.5-325MG Oral Tablet 04/02/2018 - 04/09/2018 Pr ovider: Aaron Tanner DPM Diagnosis: 1-2 po q 4-6h prn pain (surgery 04/03/18) Last Documented On 9 9:50AM By Loly Muhammad ; [facility], [facility] Medications Administered Includes: Administered Medications from this encounter No Administered Medications Recorded Vital Signs Includes: Vital Signs from this encounter Vital Name 06/27/2020 10:06A Blood Pressure Sitting (mmHg) 137/85 Pulse Rate-Sitting (bpm) 88 Height (in) 72 Weight (lb) 215 Body Mass Index (kg/m2) 29.2 Body Surface Area (m2) 2.2 Note: Last Documented: On 06/27/2020 10:09A M ; [facility] Results Includes: Results discussed during this encounter No Results Recorded For Specified Dates History of Present Illness Includes: History of Present Illness from this encounter PEDRO No is a 60 year old male. - Allergy list reviewed - Problem list reviewed - Medication reconciliation performed - Medication list reviewed with patient Social History Description Last Updated Alcohol use 06/20/2020 Last Documented On 1 10:04AM ; [facility] Caffeine use 06/20/2020 Last Documented On 10:04AM ; [facility] Not a current smoker. 06/20/2020 Last Documented On 1 10:04AM ; [facility] Not exercising regularly 06/20/2020 Last Documented On 1 10:04AM ; [facility] Non-smoker 06/20/2020 Last Documented On 1 10:04AM ; [facility] No tobacco use 01/21/2018 Last Documented On 1 10:04AM ; [facility] Smoking status : Former smoker 8 Last Documented On 1 10:04AM ; [facility] No recent change in diet 01/21/2018 Last Documented On 1 10:04AM ; [facility] Not a current smoker 01/21/2018 Last Documented On 1 10:04AM ; [facility] Not using drugs 01/21/2018 Last Documented On 1 10:04AM ; [facility] Procedures and Surgical History Includes: Procedures from this encounter Procedures Code Diagnosis Performing Provider Service L ocation Service Date use of tobacco assessment performed 1000F Last Documented On 1 10:04AM ; [facility] referral to physician SEE PCP FOR BP AND WT Last Documented On 1 10:04AM ; [facility] Clinical summary provided to patient Last Documented On 03/29/202 1 10:04AM ; [facility] Medical History Includes: Medical History addressed during this encounter Description Last Updated Arthritis 06/20/2020 Last Documented On 1 10:04AM ; [facility] Back surgery neck x2 06/20/2020 Last Documented On 1 10:04AM ; [facility] Heartburn / Acid Reflux 06/20/2020 Last Documented On 1 10:04AM ; [facility] Hernia repair 06/20/2020 Last Documented On 1 10:04AM ; [facility] Hypertension 06/20/2020 Last Documented On 1 10:04AM ; [facility] Past medical/surgical history [use for f ree text] 06/20/2020 Last Documented On 1 10:04AM ; [facility] Past Surgical History: Sinus surgery, fi nger surgery, toe surgery 06/20/2020 Last Documented On 1 10:04AM ; [facility] No recent immunization for flu 1 Last Documented On 1 10:04AM ; [facility] No recent immunization for pneumococcal pneumonia 06/20/2020 Last Documented On 1 10:04AM ; [facility] Arthritic joint problems 01/21/2018 Last Documented On 1 10:04AM ; [facility] History of diabetes mellitus 01/21/2018 Last Documented On 1 10:04AM ; [facility] Intermittent hypertension 01/21/2018 Last Documented On 1 10:04AM ; [facility] Family History Includes: Family History addressed during this encounter Description Last Updated Diabetes mellitus 06/20/2020 Last Documented On 1 10:04AM ; [facility] Stroke / Seizures 06/20/2020 Last Documented On 1 10:04AM ; [facility] Fraternal history of diabetes mellitus 0 06/23/2018 Last Documented On 1 10:04AM ; [facility] Maternal history of diabetes mellitus Last Documented On 1 10:04AM ; [facility] Family history of diabetes mellitus 12/31 Last Documented On 1 10:04AM ; [facility] Review of Systems Includes: Review of Systems from this encounter Systemic: Not feeling tired, not feeling tired, no recent weight loss, and no recent weight gain. No edema. Head: No headache, no headache, and no sinus pain. Eyes: No vision problems. Vision problems. No glaucomatous visual field defect. No Cataracts. Glasses/Contacts and Glaucoma. Otolaryngeal: No hearing loss and no tinnitus. No nasal symptoms. Cardiovascular: No chest pain or discomfort, no palpitations, and no Hypertension. High Cholesterol. Pulmonary: No daytime asthma symptoms, no daytime asthma symptoms, no cough, and no chronic cough. No wheezing. Gastrointestinal: No heartburn, no abdominal pain, and no abdominal pain. No Indigestion. Acid Reflux. No Peptic Ulcer, no GI Stomach Bleed, and no Ulcers. Endocrine: No hot flashes and no muscle weakness. Diabetes. No Hypothyroid and no Hyperthyroid. Hematologic: No easy bleeding, no tendency for easy bruising, and no Anemia. Musculoskeletal: Arthritis. No lower back pain. No soft tissue swelling and no localized joint pain. Neurological: No dizziness, no convulsions, no convulsions, and no numbness. Psychological: No anxiety, no emotional lability, no depression, and no insomnia. Not crying for no reason. Skin: No dry skin. No Ulcers, no Scars, no rash, and no ulcers. Allergic and Immunologic: Complaint of seasonal allergic reaction. Mental Status Includes: [...] Active Last Documented On 1 10:04AM ; [facility] Encounters Encounter Provider Location Date Check-In Time Check- Out Time Diagnosis Follow Up Sav Torres MD [facility] 1 9:23AM 10:22AM Insurance Includes: Active Insurance Policies Plan Name Member ID Group # Subscriber Relationship Effect porfirio Dates 1 - [place] [id number] Cristino No Self Clinical Notes Includes: Clinical Notes from this encounter No Clinical Notes Recorded
--- OUTSIDE RECORDS SUMMARY | 2024-07-14 06:47 | XMS_ITS | Encounter Summary ---
Author Name [facility] [facility] [place] Address [address] [place] [id number] Care Team Providers Care Dust Control Engineer Name Role Phone GODFREY SALAS Primary Care Provider MARTHA Taylor Primary Care Provider Unavailabl e Insurance Providers: [...] PART A May 30, 2024 PART A [id number] WIGGLESWO RTH,STEWA RT PATIENT MEDICARE (WNR) MEDICARE (M) PART B May 30, 2024 PART B [id number] WIGGLESWO RTH,STEWA RT PATIENT [facility] 2017 SELEC T RETIR ED May 16, 2018 [facility] [id number] [phone] WIGGLESWO RTH,STEWA RT PATIENT [facility] 2017 [employer] A Apr 01, 2017 DODA [id number] WIGGLESWO RTH,STEWA RT PATIENT [facility] 2024 PRIME RETIR ED Apr 01, 2024 [employer] [id number] [phone] WIGGLESWO RTH,STEWA RT PATIENT Selected Encounter This section includes the information on record at [place] for the Encounter. Date/Time Encounter Type Encounter Description Reason Pro vider Source Jun 19, 2024 12:32 PM Outpatient Encounter EVENT (HISTORICAL) IHE Encounter Template Text not used by [place] Plan of Treatment: Future Appointments (+ 6 months) and Future Tests (+/- 45 days) The Plan of Treatment section includes future care activities for the patient from all [place] treatmentfacilities. This section includes future appointments and future orders which are active, pending or scheduled. Future Appointments This section includes appointments that were scheduled to occur 6 months from the date of the Encounter, up to a maximum of 20 appointments. The data comes from all [facility]. Appointment Date/Time Appointment Type Appointme nt Facility Name Jun 25, 2024 08:00 AM AMBULATORY - MEDICINE [facility] Jun 26, 2024 08:20 AM AMBULATORY - SURGERY [place] [facility] Jun 29, 2024 01:30 PM [facility]ULATORY - NONE [place] [facility] Jul 15, 2024 09:00 AM AMBULATORY - NONE [place] [facility] Jul 27, 2024 08:00 AM [facility]ORY - [facility]GERY [place] [facility] Jul 29, 2024 01:00 PM AMBULATORY - MEDICINE [facility] August 03, 2024 07:00 [facility] Sep 23, 2024 10:00 AM [facility]ORY - MEDICINE [facility] Nov 03, 2024 09:40 [facility] Active, Pending, and Scheduled Orders This section includes a listing of several types of active, pending, and scheduled orders, including clinic medications orders, diagnostic test orders, procedure orders and consult orders; where the start date of the order is 45 days before the date of the Encounter or 45 days after the date of theEncounter. The data comes from all [facility]. Test Date/Time Test Type Test Details Facility Name Jun 26, 2024 09:07 AM Consult Order PAIN CLINI C ANESTHESIOLOGY/PAIN CD OUTPATIENT Cons Breastfeeding Program Coordinator's Choice [facility] Jul 15, 2024 12:00 AM Imaging - Ultrasou nd Order FNA BX W/ ULTRASND GDN,1ST LESION [facility] Radiology Reports: +/- 30 days of the [...] the Encounter. The data comes from all [place] treatment facilities. Date/Time Radiology Report Provider Source Jun 29, 2024 12:58 PM U/S THYROID: KATE CARTER [id number] -1960 M Exm Date: JUN 29, 2024@12:58 Req Phys: MARTHA HENLEY Loc: X-RAY/MRI/DOROTHEA/NC (Req'g Loc Img Loc: ULTRASOUND Service: [place] [address] (Case [id number] COMPLETE) U/S THYROID (US Detailed) CPT:33015 Reason for Study: SEE CLINICAL HISTORY Clinical History: REASON FOR EXAM:Nodule/Lesion follow up PERTINENT PATIENT HISTORY: PROVIDER ExtPager# Report Status: Verified Date Reported: JUN 30, 2024 Date Verified: JUN 30, 2024 Cement Mason Helper E-Sig: Report: EXAMINATION: THYROID ULTRASOUND CLINICAL INDICATIONS: [...] Interpreting Staff: CHIN CASTILLO, Radiologist Verified by manager enterprise for CHIN CASTILLO /CHIN LEES-CDOrville [facility] Jun 17, 2024 08:36 AM MRI C SPINE W/O CO NTRAST: KATE CARTER [id number] -1960 M Exm Date: JUN 17, 2024@08:36 Req Phys: MARTHA HENLEY Loc: XIOMY PACT JACI 1-2 (Req'g Lo Img Loc: [facility] Service: [place] [address] (Case [id number] COMPLETE) MRI C SPINE W/O CONTRAST (MRI Detailed) CPT:63647 Reason for Study: SEE CLINICAL HISTORY Clinical History: STATUS OF PLAIN FILMS:Done, exam date/impression above. MRI Screening (Required): IMPLANTED DEVICE DOCUMENTATION 03/11/2024 09:29 Local Title: IMPLANTED CARDIAC DEVICE Standard Title: CLINICAL WARNING Patient has an Implanted Cardiac Device. Cardiac Device Type: BIV ICD Operations Planner: [facility] [employer] Device details: Generator - [employer], model [id number], SN [id number]. RA lead - [employer], model [id number], SN [id number]. RV lead - [employer], model [id number], SN [id number]. LV - [employer], model [id number], SN [id number]. Parameters: RA - threshold - 0.25v@0.5ms, 460 ohms, sensing - >5mV RV - threshold - 0.25v@0.5ms, 640 ohms, sensing - >12mV LV - threshold - 1.25v@0.5ms, 700 ohms. DFT's - were not assessed. Shock coil impedance - 73 ohms. Implant 03/10/2024 Dr. Mckinney Signed by: /es/ RUTHANN BARONE RN 03/11/2024 09:32 Does the have any Cardiac Implants? ICD Does the [place] have any implanted stimulators? None Does the [place] have cochlear implants? No Does the [place] have Cerebral aneurysm clip(s)? No Does the have any shrapnel? No If yes, where in your body? Please list other implants not listed above: MRI table has a weight limit of 551 lbs. [place]'s Weight: *198 lb [89.81 kg] (03/16/2024 10:02) Is this patient claustrophobic?: No REASON FOR EXAM: OTHER (provide detailed justification for your request) PERTINENT PATIENT HISTORY: Cervical radiculopathy Risk factors for GADOLINIUM NEPHROGENIC SYSTEMIC SCLEROSIS: Report Status: Verified Date Reported: JUN 17, 2024 Date Verified: JUN 17, 2024 Cement Mason Helper E-Sig: Report: KATE CABRERAASHLY 1960 EXAM: MRI C SPINE W/O CONTRAST [...] Staff: FATUMA GARCIA, Staff Physician Verified by manager enterprise for FATUMA GARCIA /FATUMA YOUNG-MARÍA [facility]
--- OUTSIDE RECORDS SUMMARY | 2024-07-14 06:47 | XMS_ITS | Data Portability ---
Author Organization [place] - [facility] - [place] & TERI Agosto ADMIN Address [address] [place] [id number] Assessment Encounter Date Assessment Date Assessment LastModified by Organization Details LastModified Time 05/20/2023 05/20/2023 Diagnosis Tick bite Patient was instructed to take/apply medicine as prescribed cool compresses Benadryl as needed for itching Follow up with any worsening symptoms [id number] Not available 05/20/2023 10:58:50 06/21/2023 06/21/2023 Diagnosis acute bacterial sinusitis. Will treat as below. No signs of preseptal or orbital cellulitis, meningismus, or neurologic changes concerning for intracranial process. Instructed family to monitor patient closely and call office for any of these symptoms. Supportive care reviewed: raising HOB, humidifier use, saline nasal spray, rest, encourage PO fluids and monitor hydration status, infection control measures. Recommended acetaminophen/i buprofen PRN pain, fever; reviewed appropriate doses. Follow-up with worsening symptoms or concerns [id number] Not available 06/21/2023 09:54:42 07/12/2023 07/12/2023 Diagnosis acute bacterial sinusitis and bronchitis Will treat as below. No signs of preseptal or orbital cellulitis, meningismus, or neurologic changes concerning for intracranial process. Instructed family to monitor patient closely and call office for any of these symptoms. Supportive care reviewed: raising HOB, humidifier use, saline nasal spray, rest, encourage PO fluids and monitor hydration status, infection control measures. Recommended acetaminophen/i buprofen PRN pain, fever; reviewed appropriate doses. Follow-up with worsening symptoms or concerns Patient was advised on risk and benefits of the use of oral steriods. Patient is wanting steriods to help with symptoms at this time. Patient was advised that if symptoms worsen at all to seek care [id number] Not available 07/12/2023 08:55:26 Plan of Treatment Reminders Order Date Submit Date Provider Last Modified By Organization Details Last Modified Time Details Appointments None recorded. Lab None recorded. Referral None recorded. Procedures None recorded. Surgeries None recorded. Imaging None recorded. Medication Orders Augmentin 875 mg-125 mg tablet 2023 024 [facility]acy #[id number], [address] [place] [address], [id number], 4 09:38:48 prednisone 10 mg tablets in a dose pack 2023 024 [id number] [address] [place] [address], [id number], 4 10:00:27 ondansetron 4 mg disintegrat ing tablet 2023 024 [id number] [address] [place] [address], [id number], 4 08:55:32 prednisone 20 mg tablet 2023 024 [facility] [address] [place] [address], [id number], 4 08:55:32 doxycycline hyclate 100 mg capsule 2023 024 [id number] [address] [place] [address], [id number], 4 08:55:33 amoxicillin 875 mg-potassiu m clavulanate 125 mg tablet 2023 024 [facility] [address] [place] [address], [id number], 4 09:54:04 doxycycline hyclate 100 mg capsule 2023 024 [id number] [address] [place] [address], [id number], 4 16:16:06 Patient TargetsNo targets recorded. Patient InstructionsNo instructions recorded. Reason for Referral None Reported. Medical Equipment None Reported. Allergies Allergen ID Allergen Name Allergen Category Reaction Reaction Severity Criticality Documentation Date Start Date Code Code System Note Provider Name and Address Organization Details Recorded Time [id number] vancomyci n medicatio n Not available Not available Not available 05/20/2023 86989 RxNorm BART DE JESUS [facility] & [place] 4 10:53:56 Medications Name Sig Start Date Stop Date Status Note LastModified by Organization Details LastModified Time cyclobenzapr ine 10 mg tablet active Not Available Not Available Not Available latanoprost 0.005 % eye drops active Not Available Not Available Not Available acetaminophe n 325 mg tablet active Not Available Not Available Not Available prednisone 10 mg tablet TAKE 6 TABLETS ON DAY 1 DIRECTED ON PACKAGE AND DECREASE BY 1 TAB EACH DAY FOR A TOTAL OF 6 DAYS active Not Available Not Available No t Available doxycycline hyclate 100 mg capsule TAKE 1 CAPSULE BY MOUTH TWICE A DAY FOR 10 DAYS active Not Available Not Available No t Available carvedilol 12.5 mg tablet TAKE 1 TABLET BY MOUTH EVERY 12 HOURS active Not Available Not Available No t Available azithromycin 250 mg tablet active Not Available Not Available Not Available nitroglyceri n 0.3 mg sublingual tablet active Not Available Not Available Not Available ofloxacin 0.3 % eye drops INSTILL 1 TO 2 DROPS INTO EACH EYE EVERY 4 TO 6 HOURS active Not Available Not Available N ot Available metoprolol succinate ER 50 mg tablet,exten ded release 24 hr active Not Available Not Available Not Available metoprolol succinate ER 200 mg tablet,exten ded release 24 hr active Not Available Not Available Not Available glipizide 10 mg tablet active Not Available Not Available No t Available prednisone 20 mg tablet TAKE 1 TABLET BY MOUTH EVERY 12 HOURS FOR 5 DAYS active Not Available Not Available N ot Available metoprolol succinate ER 100 mg tablet,exten ded release 24 hr active Not Available Not Available Not Available thiamine HCl (vitamin B1) 100 mg tablet TAKE 1 TABLET BY MOUTH EVERY DAY active Not Available Not Available No t Available amlodipine 2.5 mg tablet active Not Available Not Available Not Available clopidogrel 75 mg tablet TAKE 1 TABLET BY MOUTH EVERY DAY active Not Available Not Available No t Available amlodipine 5 mg tablet active Not Available Not Available No t Available aspirin 81 mg tablet,delay ed release TAKE 1 TABLET BY MOUTH EVERY DAY active Not Available Not Available No t Available spironolacto ne 25 mg tablet active Not Available Not Available Not Available prednisone 10 mg tablets in a dose pack As directed 2023 active Not Available Not Available Not Avai lable nitroglyceri n 0.4 mg sublingual tablet PLEASE SEE ATTACHED FOR DETAILED DIRECTIONS active Not Available Not Available N ot Available omeprazole 20 mg capsule,john yed release active Not Available Not Available Not Available folic acid 1 mg tablet TAKE 1 TABLET BY MOUTH EVERY DAY active Not Available Not Available No t Available bisacodyl 5 mg tablet,delay ed release active Not Available Not Available N ot Available mupirocin 2 % topical ointment active Not Available Not Available Not Available methylpredni solone 4 mg tablets in a dose pack TAKE 6 TABLETS ON DAY 1 DIRECTED ON PACKAGE AND DECREASE BY 1 TAB EACH DAY FOR A TOTAL OF 6 DAYS active Not Available Not Available No t Available lisinopril 40 mg tablet active Not Available Not Available Not Available ondansetron 4 mg disintegrati ng tablet PLACE 1 TABLET EVERY 6-8 HOURS BY TRANSLINGUA L ROUTE FOR 4 DAYS. active Not Available Not Available No t Available fluticasone propionate 50 mcg/actuatio n nasal spray,suspen gael active Not Available Not Available Not Available metformin ER 500 mg tablet,exten ded release 24 hr active Not Available Not Available Not Available amoxicillin 875 mg-potassium clavulanate 125 mg tablet Take 1 tablet every 12 hours by oral route for 10 days. active Not Available Not Available No t Available valsartan 40 mg tablet TAKE 1 TABLET BY MOUTH EVERY DAY active Not Available Not Available No t Available ezetimibe 10 mg tablet active Not Available Not Available No t Available rosuvastatin 10 mg tablet active Not Available Not Available Not Available rosuvastatin 20 mg tablet TAKE 1 TABLET BY MOUTH EVERY DAY AT NIGHT active Not Available Not Available No t Available rosuvastatin 40 mg tablet active Not Available Not Available Not Available cholecalcife rol (vitamin D3) 25 mcg (1,000 unit) tablet active Not Available Not Available Not Available Lantus Solostar U-100 Insulin 100 unit/mL (3 mL) subcutaneous pen active Not Available Not Available Not Available lidocaine 5 % topical ointment active Not Available Not Available Not Available Jardiance 10 mg tablet TAKE 1 TABLET BY MOUTH EVERY DAY active Not Available Not Available No t Available Entresto 49 mg-51 mg tablet active Not Available Not Available Not Available Entresto 24 mg-26 mg tablet TAKE 1 TABLET BY MOUTH EVERY 12 HOURS active Not Available Not Available No t Available GenTeal Tears Moderate 0.1 %-0.3 %-0.2 % eye drops active Not Available Not Available Not Available Vitals Date Recorded Body height Body mass index (BMI) Body weight Body temperature Heart rate Systolic blood pressure Diastolic blood pressure Provider Name and Address Organization Details Last Updated DateTime 4 182.88 cm 26.6 kg/m2 03113.1 g 98.2 [degF] 101 /min 136 mm[Hg] 70 mm[Hg] BART CHAVZEMONS [facility] & [place] 4 10:53:41 Date Recorded Body height Body mass index (BMI) Body weight Oxygen saturation Oxygen saturation in Arterial blood by Pulse oximetry Heart rate Systolic blood pressure Diastolic blood pressure Provider Name and Address Organization Details Last Updated DateTime 4 182.88 cm 27.4 kg/m2 36594.9 4 g 98 % 98 % 84 /min 152 mm[Hg] 84 mm[Hg] Caryn colbert [facility] & [place] 4 09:41:48 Date Recorded Body height Body mass index (BMI) Body weight Body temperature Oxygen saturation Oxygen saturation in Arterial blood by Pulse oximetry Heart rate Systolic blood pressure Diastolic blood pressure Provider Name and Address Organization Details Last Updated DateTime 4 182.88 cm 27.1 kg/m2 15446.4 7 g 98.2 [degF] 98 % 98 % 92 /min 159 mm[Hg] 99 mm[Hg] Abril Molinaner [facility] & [place] 4 08:45:04 Date Recorded Body height Body mass index (BMI) Body weight Body temperature Oxygen saturation Oxygen saturation in Arterial blood by Pulse oximetry Heart rate Heart rate Systolic blood pressure Diastolic blood pressure Provider Name and Address Organization Details Last Updated DateTime 4 182.88 cm 27.2 kg/m2 33962.8 7 g 97.3 [degF] 96 % 96 % 76 /min 76 /min 121 mm[Hg] 74 mm[Hg] Page Leefield [facility] & [place] 4 09:28:22 Date Recorded Body height Body mass index (BMI) Body weight Oxygen saturation Oxygen saturation in Arterial blood by Pulse oximetry Heart rate Heart rate Body temperature Systolic blood pressure Diastolic blood pressure Provider Name and Address Organization Details Last Updated DateTime 4 182.88 cm 27.1 kg/m2 57953.4 7 g 97 % 97 % 71 /min 71 /min 98 [degF] 125 mm[Hg] 80 mm[Hg] Page Leefield [facility] & [place] 4 09:15:59 Social History None recorded. Functional Status None recorded. Mental Status None recorded. Family History Nothing Reported. Medical History No medical history recorded. Past Encounters Encounter ID Performer Location Encounter Start Date Encounter Closed Date Diagnosis/Indication Diagnosis SNOMED-CT Code Diagnosis ICD10 Code Diagnosis Note [id number] Cielo Sharp, MARY, COMMERCIAL LOAN ANALYST-C, [facility] [address] [address] 05/21/2022 09:34:48 05/21/2022 10:09:34 Acute sinusitis 23455399 J01.90 [id number] Jenna Null APRN [facility] [address] [address] 05/20/2023 10:16:23 05/20/2023 11:01:00 Tick bite 76661734 [id number].XXXA [id number] Jenna Null APRN [facility] [address] [address] 06/21/2023 09:18:36 06/21/2023 09:54:29 Acute maxillary sinusitis 08153015 J01.00 [id number] Jenna Null APRN [facility] [address] [address] 07/12/2023 08:38:57 07/12/2023 08:56:40 Acute maxillary sinusitis 94482525 J01.00 Acute bronchitis 2854140 2 J20.9 Nausea 418398707 R11.0 [id number] Adebayo Null MD [facility] [address] [facility] [address] [place] [address] 02/22/2024 09:06:56 02/22/2024 10:08:48 Acute upper respiratory infection 78411901 J06.9 Presumed viral illness. Rest, plenty of fluids, OTC symptomati c treatment. Return for failure to improve over the next several days or sooner if worsening. Declines testing. Steroids for symptoms. [id number] Adebayo Null MD [facility] [address] [facility] [address] [place] [address] 02/29/2024 09:03:32 02/29/2024 09:35:59 Acute sinusitis 85942270 J01.90 Health Concerns Section Related Observation LastModified by Organization Detai ls LastModified Time None Recorded Concern Status LastModified by Organization Details LastModified Time None Recorded Advance Directives Directive None Recorded Payers Encounter Date Sequence Insurance Name Policy Number Policy Zuniga Covered Member ID Zuniga Member ID Guarantor Name 05/20/2023 1 [employer] - DOS PRIOR TO 2024 - [employer] () Cristino No [id number] Cristino No 06/21/2023 1 [employer] - DOS PRIOR TO 2024 - [employer] () Cristino No [id number] Cristino No 07/12/2023 1 [employer] - DOS PRIOR TO 2024 - [employer] () Cristino No [id number] Cristino No 02/22/2024 1 [employer] - DOS PRIOR TO 2024 - [employer] () Cristino No [id number] Cristino No 02/29/2024 1 [employer] - DOS PRIOR TO 2024 - [employer] () Cristino No [id number] Cristino No Notes Date Note Type Note Provider Name and Address Organization Details Recorded Time 05/20/2023 text/html Rash/Skin LesionReported bypatient.Location:[facility] inner thigh Quality:red; bulls eye rash Severity:mild Duration:symptoms began 3 days ago Onset/Timing:abrupt onset Context:no new detergents or skin products; no one else with similar rash; not scratching; bite by a tick pulled it off 3 days ago and then rash started the next day Alleviating Factors:nothing gives relief Aggravating Factors:nothing makes it worse Associated Symptoms:no fever; no cold symptoms; no nausea; no vomiting; no diarrhea; no urinary symptoms; no chills; no fatigue; no change in weight Treatment History:no history of treatment [address], [place], [phone] [place] [address] & [place] 05/20/2023 11:01:25 06/21/2023 text/html Upper Respirator y SymptomsReported bypatient.Location:[facility] ad; chest; throat; nasal; face Quality:congested;dry cough;nasal discharge Severity:no pain Duration:symptoms began 9 days ago Onset/Timing:sudden Context:no sick contacts; no foreign travel; non-smoker Alleviating Factors:decongestant Associated Symptoms:no chest pain; no sputum production; no shortness of breath; no wheezing; no cyanosis; no fatigue; no change in number of pillows needed to sleep at night; no sweats; no fever; no morning cough; no sore throat; no vomiting; no diarrhea; no rash; no nausea; no headache; no chills; no malaise; no conjunctivitis; sinus pressure [address], [place], [address] & [place] 06/21/2023 09:55:06 07/12/2023 text/html Upper Respirator y SymptomsReported bypatient.Location:he ad; chest; throat; nasal; face Quality:congested;dry cough;nasal discharge; sinus pressure Severity:no pain Duration:symptoms began 7 days ago Onset/Timing:sudden Context:no sick contacts; no foreign travel; non-smoker Associated Symptoms:no chest pain; no sputum production; no shortness of breath; no wheezing; no cyanosis; no fatigue; no change in number of pillows needed to sleep at night; no sweats; no fever; no morning cough; no sore throat; no vomiting; no diarrhea; no rash; no chills; no malaise; no conjunctivitis;nausea ;headache Jenna Null APRN [address], [place], [address], [facility] 07/12/2023 08:57:27 02/22/2024 text/html 3 days right keon ed nasal congestion, pain, ear pain. No fever. No cough or sore throat. States caught it from his who was evaluated few days ago and deemed viral, improved with prednisone. Adebayo Null MD [address], [place], [address], [facility] 02/22/2024 10:00:48 02/29/2024 text/html 10 days cold symptoms, nasal congestion, purulent nasal discharge, sinus pressure, no improvement with prednisone. Adebayo Null MD [address], [place], [address], [facility] 02/29/2024 09:39:03
--- OUTSIDE RECORDS SUMMARY | 2024-07-14 06:47 | XMS_ITS | Encounter Summary ---
Author Name [facility] [place] Organization [place] Address [address] [place] [id number] Care Team Providers Care Diesel Engine Engineer Name Role Phone JOSUE JOOENEDINA Primary Care [...] PART A May 30, 2024 PART A [id number] UD24 WIGGLESWO RTH,STEWA RT PATIENT MEDICARE (WNR) MEDICARE (M) PART B May 30, 2024 PART B [id number] UD24 WIGGLESWO RTH,STEWA RT PATIENT [facility] 2017 SELEC T RETIR ED May 16, 2018 [facility] [id number] [phone] WIGGLESWO RTH,STEWA RT PATIENT [facility] 2017 [employer] A Apr 01, 2017 DODA [id number] WIGGLESWO RTH,STEWA RT PATIENT [facility] 2024 PRIME RETIR ED Apr 01, 2024 [facility] [id number] [phone] JAZMINE RTH,AMY RT PATIENT Selected Encounter This section includes the information on record at [place] for the Encounter. Date/Time Encounter Type Encounter Description Reason Pro vider Source Oct 31, 2023 04:20 PM Outpatient Encounter ADMIN PAT ACTIVTIES (MASNONCT) IHE Encounter Template Text not used by [place] Plan of Treatment: Future Appointments (+ 6 months) and Future Tests (+/- 45 days) The Plan of Treatment section includes future care activities for the patient from all [place] treatmentfacilities. This section includes future appointments and future orders which are active, pending or scheduled. Future Appointments This section includes appointments that were scheduled to occur 6 months from the date of the Encounter, up to a maximum of 20 appointments. The data comes from all [place] treatment facilities. Appointment Date/Time Appointment Type Appointme nt Facility Name Nov 05, 2023 08:30 AM AMBULATORY - REHAB MEDICIN E [facility] Nov 05, 2023 08:40 AM [facility]ORY - [place] [facility] Nov 20, 2023 03:00 PM AMBULATORY - MEDICINE [place] [facility] Nov 26, 2023 10:30 AM [facility]ORY - NONE [place] Dec 12, 2023 04:00 PM AMBULATORY - MEDICINE [place] [facility] Jan 01, 2024 08:30 AM AMBULATORY - REHAB MEDICIN E [facility] Jan 14, 2024 08:30 AM [facility]ORY - [place]GERY [place] [facility] Jan 27, 2024 01:00 PM AMBULATORY - MEDICINE [place] [facility] Jan 29, 2024 03:00 PM AMBULATORY - MEDICINE [place] [facility] Feb 07, 2024 09:00 AM [facility]ORY - [place] [facility] Feb 20, 2024 02:00 PM [facility] [place] Feb 21, 2024 02:30 PM AMBULATORY - MEDICINE [place] [facility] Mar 16, 2024 10:30 AM [facility]ORY - NONE [place] [facility] Mar 23, 2024 10:00 AM AMBULATORY - MEDICINE [place] [facility] Apr 08, 2024 08:15 AM AMBULATORY - MEDICINE [facility] [facility] Apr 16, 2024 01:30 PM AMBULATORY - NONE [place] Nguy[facility]n [facility] Apr 16, 2024 02:15 PM [facility] Lab Results: +/- 30 days of [...] Type Comment Nov 05, 2023 09:34 AM [place] [facility] PANEL 1 PLASMA Specimen Type: PLASMA Comment: [...] Oct 22, 2023 09:51 AM Reporting Lab: [place] [id number] Performing Lab: [address] CREATININE 1.24 mg/dL 0.72-1.25 UREA NITROGEN 28 mg/dL H 9-25 GLUCOSE 182 mg/dL H 74-100 SODIUM 140 mmol/L 136-145 POTASSIUM 4.8 mmol/L 3.5-5.1 CHLORIDE 105 mmol/L 98-107 CO2 28 mmol/L 22-29 CALCIUM 9.8 mg/dL 8.4-10.2 ANION GAP 7 meq/L 3-19 eGFR (CKD-EPI) 65 Oct 15, 2023 09:36 AM [facility] POC AVOX GAS MIXED VENOUS Specimen Type : MIXED VENOUS Comment: Specimen Site: Pulmonary artery, Main Test performed by: [id number] Meter #:[id number] Ordering Provider: DOV GUILLERMO Report Released Date/Time: Oct 15, 2023 10:34 AM Reporting Lab: [place] [id number] Performing Lab: [place] [id number] .O2HB (AVOX) 62.5 60-80 .HGB (AVOX) 12.2 g/dL 12-18 Oct 14, 2023 08:22 AM [facility] CBC/PLT BLOOD Specimen Type: BLOOD No comment entered. Ordering Provider: DOV RAMSEY Report Released Date/Time: Oct 10, 2023 12:55 PM Reporting Lab: [place] [id number] Performing Lab: [place] [id number] WBC 6.2 10*3/uL 5.0-10.0 RBC 5.34 10*6/uL 4.6-6.2 HGB 13.8 g/dL L 14.0-18.0 HCT 44.7 42.0-52.0 MCV 83.7 fL 80.0-94.0 MCH 25.8 pg L 27.0-31.0 MCHC 30.9 g/dL L 32.0-36.0 PLT 204 10*3/uL 150-450 MPV 10.1 fL 9.0-13.1 RDW 17.4 H 11.0-16.0 NRBC 0.0 0.0-0.0 Oct 14, 2023 08:22 AM [facility] MAGNESIUM PLASMA Specimen Type: PLASM A [...] Oct 09, 2023 01:38 PM Reporting Lab: [address] [id number] Performing Lab: [address] [id number] MAGNESIUM 2.1 mg/dL 1.6-2.6 Oct 14, 2023 08:22 AM [facility] BNP (stickapps) PLASMA Specimen Type: PLASMA Comment: BNP results less than or equal to 100 pg/ml are event marketing representative of normal values in patients without CHF. BNP results greater than 100 pg/ml are considered abnormal and suggestive of CHF. Higher BNP concentrations in the first 72 hours after Acute Coronary Syndrome are associated with an increased risk of , myocardial infarction and CHF. Ordering Provider: SANDRA MARCOS Report Released Date/Time: Oct 09, 2023 01:38 PM Reporting Lab: [address] [id number] Performing Lab: [address] [id number] BNP (HARDIN) 204 pg/mL H 0-100 Oct 14, 2023 08:22 AM [facility] PANEL 1 PLASMA Specimen Type: PLASM [...] Oct 09, 2023 01:38 PM Reporting Lab: [address] [id number] Performing Lab: [address] [address] CREATININE 1.27 mg/dL H 0.72-1.25 UREA NITROGEN 35 mg/dL H 9-25 GLUCOSE 126 mg/dL H 74-100 SODIUM 134 mmol/L L 136-145 POTASSIUM 4.7 mmol/L 3.5-5.1 CHLORIDE 103 mmol/L 98-107 CO2 24 mmol/L 22-29 CALCIUM 10.0 mg/dL 8.4-10.2 ANION GAP 7 meq/L 3-19 eGFR (CKD-EPI) 63 Radiology Reports: +/- 30 days of the [...] the Encounter. The data comes from all [facility] treatment facilities. Date/Time Radiology Report Provider Source Oct 15, 2023 07:30 AM DAY HABILITATION SUPERVISOR - FLUORO UP TO 1 HOUR: DEBORAHHERMILOKATE CASTANEDA [id number] -[id number] M Exm Date: OCT 15, 2023@07:30 Req Phys: DOV HURTADO Loc: CARDIAC CATH/OPT/CDD (Req'g Lo Img Loc: ANGIO/NEURO/INTERVENTIONAL Service: Unknown [place] [id number] (Case [id number] COMPLETE) DAY HABILITATION SUPERVISOR - FLUORO UP TO 1 HOUR (ANI Detailed) CPT:95736 Reason for Study: RHC Clinical History: RHC Report Status: Verified Date Reported: Date Verified: OCT 15, 2023 Performance Test Consultant E-Sig: Report: See Impression Impression: Agricultural Produce 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 Please see CPRS Agricultural Produce Washer consults and notes in CPRS for final reporting and exam documentation. Primary Diagnostic Code: Primary Interpreting Staff: PHYS OTHER THAN [place] RADIOL, Staff Physician Verified by door repairer bus for PHYS OTHER THAN [place] [facility] /[facility] RADIOLOGIST,PHYS OTHER THAN [facility] [place] Encounter Notes: All associated encounter notes This section contains the clinical notes associated to the Encounter. Date/Time Encounter Note(s) Provider Source Oct 31, 2023 04:20 PM NONVA NOTE: LOCAL TITLE: COMMUNITY CARE-REQUEST FOR SERVICE NOTE STANDARD TITLE: NONVA NOTE DATE OF NOTE: OCT 31, 2023@16:20 ENTRY DATE: OCT 31, 2023@16:20:43 AUTHOR: ANITRA MOLINA EXP COSIGNER: URGENCY: STATUS: COMPLETED Request for Services (RFS) documentation has been scanned to [employer] Community Care Consult: [facility] RFS-ACUPUNTURE Consult No: [id number] Date scanned: Oct A Request for Service (RFS) form [id number] has been received which includes the following: Care Requested:CONTINUATION OF CARE. ICD-10 Dx code: M54.2 Date VA received request: Oct Date service required: UNK Requesting Community Provider Information: Name of Ordering Provider: Cristy Gabriel Office:[facility] Address, City, State: [address] [place] [address], [place], [place], [facility] /es/ ANITRA ALVARADO Signed: 10/31/2023 16:23 Receipt Acknowledged By: 11/01/2023 08:21 /es/ ESTEBAN HURTADO APRN LICENSED NURSE PRACTITIONER ANITRA MOLINA[facility]
--- OUTSIDE RECORDS SUMMARY | 2024-07-14 06:47 | XMS_ITS | Encounter Summary ---
Author Name Department of [place] Organization Department of [place] Address [address] [place] [address] Care Team Providers Care Director Part Name Role Phone JOSE MIGUELMARYSECIRO JOOENEDINA Primary Care Provider Unavaila MARTHA Luis [...] PART A May 30, 2024 PART A [id number] UD24 WIGGLESWO RTH,STEWA RT PATIENT MEDICARE (WNR) MEDICARE (M) PART B May 30, 2024 PART B [id number] [id number] WIGGLESWO RTH,STEWA RT PATIENT [facility] 2017 SELEC T RETIR ED May 16, 2018 [facility] [id number] [phone] WIGGLESWO RTH,STEWA RT PATIENT [facility] 2017 [employer] A Apr 01, 2017 DODA [id number] WIGGLESWO RTH,STEWA RT PATIENT [facility] 2024 PRIME RETIR ED Apr 01, 2024 [facility] [id number] [phone] WIGGLESWO RTH,STEWA RT PATIENT Selected Encounter This section includes the information on record at [place] for the Encounter. Date/Time Encounter Type Encounter Description Reason Provider Source Nov 20, 2023 03:00 PM OFFICE O/P EST MOD 30 MIN DERMATOLOGY ICD-10-CM L57.0 Actinic keratosis FREDIS SANTOS Catracho Encounter Template Text not used by [place] Assessments - Encounter Diagnoses This section includes the primary and secondary diagnoses documented for the Encounter. Date/Time Primary/Secondary Diagnosis Diagnosis Name Provider Source Nov 20, 2023 03:28 PM PRIMARY Actinic keratosis FREDIS SANTOSCD [place] [facility] Nov 20, 2023 03:28 PM SECONDARY Hemangioma of skin and subcutaneous tissue FREDIS SANTOSCD [place] [facility] Nov 20, 2023 03:28 PM SECONDARY Nevus, non-neoplastic FREDIS SANTOS-CD [place] [facility] Nov 20, 2023 03:28 PM SECONDARY Other seborrheic keratosis FREDIS SANTOSCD [place] [facility] Nov 20, 2023 03:28 PM SECONDARY Other specified follicular disorders FREDIS SANTOSCD [place] [facility] Nov 20, 2023 03:28 PM SECONDARY Personal history of malignant melanoma of skin FREDIS SANTOSCD [place] [facility] Nov 20, 2023 03:28 PM SECONDARY Personal history of other malignant neoplasm of skin FREDIS SANTOS [facility] Plan of Treatment: Future Appointments (+ 6 months) and Future Tests (+/- 45 days) The Plan of Treatment section includes future care activities for the patient from all [place] treatmentfacilities. This section includes future appointments and future orders which are active, pending or scheduled. Future Appointments This section includes appointments that were scheduled to occur 6 months from the date of the Encounter, up to a maximum of 20 appointments. The data comes from all [place] treatment facilities. Appointment Date/Time Appointment Type Appointme nt Facility Name Nov 26, 2023 10:30 AM AMBULATORY - NONE [facility] Dec 12, 2023 04:00 PM AMBULATORY - MEDICINE [place] HAMM [facility] Jan 01, 2024 08:30 AM AMBULATORY - REHAB MEDICIN E KJ [facility] Jan 14, 2024 08:30 AM AMBULATORY - SURGERY V[place]K [place] [facility] Jan 27, 2024 01:00 PM AMBULATORY - MEDICINE [place] HANSEL [facility] Jan 29, 2024 03:00 PM AMBULATORY - MEDICINE [place] HANSEL [facility] Feb 07, 2024 09:00 AM [facility] Feb 20, 2024 02:00 PM AMBULATORY - NONE [place] [facility] Feb 21, 2024 02:30 PM AMBULATORY - MEDICINE [place] HANSEL [facility] Mar 16, 2024 10:30 AM [facility] Mar 23, 2024 10:00 AM AMBULATORY - MEDICINE [facility] Apr 08, 2024 08:15 AM [facility] Apr 16, 2024 01:30 PM [facility] Apr 16, 2024 02:15 PM AMBULATORY - NONE [facility] May 05, 2024 09:40 AM [facility] Lab Results: +/- 30 days of [...] Type Comment Nov 05, 2023 09:34 AM [facility] PANEL 1 PLASMA Specimen Type: PLASMA [...] Oct 22, 2023 09:51 AM Reporting Lab: [address] [id number] Performing Lab: [address] [address] CREATININE 1.24 mg/dL 0.72-1.25 UREA NITROGEN 28 mg/dL H 9-25 GLUCOSE 182 mg/dL H 74-100 SODIUM 140 mmol/L 136-145 POTASSIUM 4.8 mmol/L 3.5-5.1 CHLORIDE 105 mmol/L 98-107 CO2 28 mmol/L 22-29 CALCIUM 9.8 mg/dL 8.4-10.2 ANION GAP 7 meq/L 3-19 eGFR (CKD-EPI) 65 Encounter Notes: All associated encounter notes This section contains the clinical notes associated to the Encounter. Date/Time Encounter Note(s) Provider Source Nov 20, 2023 03:16 PM DERMATOLOGY PHYSIC PEREZ NOTE: LOCAL TITLE: DERMATOLOGY CLINIC PHYSICIAN/PA/SENIOR CLINICAL DATA ANALYST NOTE STANDARD TITLE: DERMATOLOGY PHYSICIAN NOTE DATE OF NOTE: NOV 20, 2023@15:16 ENTRY DATE: NOV 20, 2023@15:17:02 AUTHOR: FREDIS SANTOS EXP COSIGNER: URGENCY: STATUS: COMPLETED DERMATOLOGY CLINIC PHYSICIAN/PA/SENIOR CLINICAL DATA ANALYST NOTE Has ADDENDA Patient is a 63 yo WHITE MALE here for: skin examination. He has a history of malignant melanoma. Today he has a painful lesion on his left mid cheek that has been present for 3 months. He has a list of other lesions to be checked. He is seen with his . Have you used tobacco products (smoked or chewed) in the past 12 months? - No Are you having any pain or recurrent pain in the last several weeks/months? No Location: Duration: Characteristics: Active Outpatient Medications (including Supplies): Active Outpatient Medications Status 1) ACCU-CHEK GUIDE (GLUCOSE) TEST STRIP USE 1 STRIP TO ACTIVE TEST BLOOD SUGAR DIRECTED 2) ACETAMINOPHEN 325MG TAB TAKE TWO TABLETS BY MOUTH ACTIVE TWICE A DAY NEEDED FOR PAIN - DO NOT TAKE MORE THAN 12 TABLETS PER DAY 3) ASPIRIN 81MG EC TAB TAKE ONE TABLET BY MOUTH DAILY ACTIVE FOR HEART 4) CHOLECALCIF 25MCG (D3-1,000UNIT) TAB TAKE ONE TABLET ACTIVE BY MOUTH DAILY FOR VITAMIN D SUPPLEMENT 5) CLOPIDOGREL BISULFATE 75MG TAB TAKE ONE TABLET BY ACTIVE MOUTH DAILY TO THIN BLOOD 6) EMPAGLIFLOZIN 10MG TAB TAKE ONE TABLET BY MOUTH EVERY ACTIVE MORNING FOR HEART FAILURE 7) EZETIMIBE 10MG TAB TAKE ONE TABLET BY MOUTH EVERY ACTIVE EVENING FOR CHOLESTEROL 8) FLUTICASONE PROP 50MCG 120D NASAL INHL USE 1 SPRAY IN ACTIVE EACH NOSTRIL DAILY FOR NASAL ALLERGY 9) GLIPIZIDE 10MG TAB TAKE TWO TABLETS BY MOUTH TWICE A ACTIVE DAY FOR DIABETES 10) INSULIN,GLARGINE-YFGN 100UNIT/ML *PEN* INJECT 17 ACTIVE (S) UNITS UNDER THE SKIN DAILY FOR BLOOD SUGAR -DISCARD PEN AFTER 28 DAYS OF USE 11) LATANOPROST 0.005% OPH SOLN PUT 1 DROP IN BOTH EYES ACTIVE AT BEDTIME FOR GLAUCOMA 12) METFORMIN HCL 500MG 24HR SA TAB TAKE TWO TABLETS BY ACTIVE MOUTH TWICE A DAY FOR DIABETES 13) METOPROLOL SUCCINATE 100MG SA TAB TAKE ONE AND ACTIVE ONE-HALF TABLETS BY MOUTH DAILY FOR HEART 14) MULTIVIT/OPHTH AREDS2/LUTE/ZEAX CAP/TAB TAKE 1 ACTIVE SOFTGEL BY MOUTH TWICE A DAY AFTER MEALS FOR EYE HEALTH 15) MUPIROCIN 2% OINT APPLY SMALL AMOUNT TO AFFECTED AREA ACTIVE TWICE A DAY FOR SKIN INFECTION 16) OMEPRAZOLE 20MG EC CAP TAKE ONE CAPSULE BY MOUTH ACTIVE TWICE A DAY FOR STOMACH. TAKE ON AN EMPTY STOMACH 17) ROSUVASTATIN CA 40MG TAB TAKE ONE TABLET BY MOUTH ACTIVE DAILY FOR CHOLESTEROL 18) SACUBITRIL 49MG/VALSARTAN 51MG TAB TAKE 1 TABLET BY ACTIVE MOUTH TWICE A DAY FOR HEART FAILURE - THIS IS A DOSE INCREASE. START THIS INCREASED DOSE ON 07/31/2023 19) SPIRONOLACTONE 25MG TAB TAKE ONE TABLET BY MOUTH ACTIVE DAILY FOR HEART FAILURE Active Non-VA Medications Status 1) Non-VA ASCORBIC ACID 500MG TAB 1000MG MOUTH DAILY ACTIVE 2) Non-VA CENTRUM SILVER TABLET 1 TABLET MOUTH DAILY ACTIVE 3) Non-VA MAGNESIUM OXIDE 420MG TAB 840MG MOUTH DAILY ACTIVE 22 Total Medications ALLERGIES: VANCOMYCIN, GABAPENTIN, PREGABALIN, SIMVASTATIN, ROSUVASTATIN History of SCC/BCC, History of Melanoma PREVIOUS REPORTS: 10/2021 MICROSCOPIC EXAM/DIAGNOSIS: Skin, left middle back, shave biopsy: -Superficial basal cell carcinoma. 05/2021 MICROSCOPIC EXAM/DIAGNOSIS: A. Skin, left neck, shave biopsy: -Squamous cell carcinoma in situ. B. Skin, left buttocks, shave biopsy: -Junctional nevus. C. Skin, sternum, shave biopsy: -Benign skin showing acanthosis, papillomatosis and hyperparakeratosis. -No evidence of malignancy. -Focally impetiginized neutrophilic crust noted. 11/2020 MICROSCOPIC EXAM/DIAGNOSIS: A. Skin, right neck, excision: -Residual melanoma in situ is identified, see comment. -Closest margin 2mm (3 o'clock tip). B. Skin, right neck, 12-6 o'clock margin, excision: -Solar elastosis; no residual melanoma identified. 09/2020 MICROSCOPIC EXAM/DIAGNOSIS: A. Skin, right postauricular, shave biopsy: -Solar elastosis, focal hyperkeratosis and minimal acanthosis with prominent sebaceous lobule. -No evidence of malignancy. B. Skin, right neck, shave biopsy: -Melanoma in situ. Evaluation of this specimen was completed and first diagnosis of malignancy was made on 11/02/2020 at 9:[address] Will Ro and confirmed by Dr. Arron Leon. The diagnosis was called to and read back by: Dr. Fredis Santos on 11/03/2020 at 10:[address] Aaron Jarrell. FAMILY HISTORY: No skin cancer REVIEW OF SYSTEMS: Feels well, no systemic complaints. , Constitutional: Appears well-developed, well-nourished, in no acute distress. PHYSICAL EXAM - Waist-up Skin Exam: head, neck, chest, back, abdomen, right and left arm, hands Common Physical Exam Findings: Erythematous scaly macules on - Right Ear, Left Ear - Few scattered nicole/brown reticulated macules on sun-exposed areas - Stuck-on, greasy flesh colored or brown keratotic papules/macules with or without pseudo-horn cysts on - Trunk - Discrete arzola red papules on - Trunk - Right mid cheek white yellow papules(3) ASSESSMENT & PLAN: AK's: Explained to the patient that these are precancerous lesions and should be treated. Discussed the discomfort caused by LN2. Discussed risks of cryotherapy such as scabbing, crusting, pain, blistering, pigmentary change, and possibility of scarring. - Wound care was discussed, and wound care sheet given. Patient consented to treatment and had no further questions or concerns. - LN2 x to - Right Ear, Left Ear No liquid nitrogen available. Nevi and lentigines: Monitor moles for change/skin self-examination was reviewed including the use of a hand-held mirror to check the back -Continue sun protection. -Preventive therapy discussed -Avoid sun exposure between 10am and 4pm -Sunscreen: SPF #30 or more; re-apply every 2 hours, daily -Protective clothing/ 4 inch wide-brim hat -No tanning Seborrheic keratoses: - Explained to patient and reassured that these lesions are benign. - Treatment is not necessary. Arzola Hemangioma: Reassurance was provided. Sebaceous Hyperplasia on right mid cheek. Reassurance was provided. Discussed cryotherapy. History of skin cancer - Will observe: - h/o BCC/SCC: no evidence of recurrence, - h/o Melanoma: no evidence of recurrence Return to clinic 12/12/2023 for cryotherapy. No liquid nitrogen available today. I spent 30 minutes, reviewing history, performing an exam and evaluation, entering clinical information EHR, interpreting result, counseling patient/family/caregiver, reviewing x-rays/mri/labs, ordering meds/test/procedures, referring and communicating with consulting health human services care specialist, and care coordination. /amando/ FREDIS SANTOS Chief, Dermatology Signed: 11/20/2023 15:28 11/21/2023 ADDENDUM STATUS: COMPLETED All medications, post treatment care, and treatment plan was discussed with prior to exiting clinic by nurse/provider. Chart check review completed. RTC scheduled. /es/ PRASAD JI RN, BSN, [facility] Pointer Helper [facility] Signed: 11/21/2023 07:27 FREDIS SANTOS-CDD [facility] Nov 20, 2023 02:57 PM DERMATOLOGY OMAR Hernandez NOTE: LOCAL TITLE: DERMATOLOGY PRE VISIT NOTE STANDARD TITLE: DERMATOLOGY NURSING NOTE DATE OF NOTE: NOV 20, 2023@14:57 ENTRY DATE: NOV 20, 2023@14:59:36 AUTHOR: RUTHANN CANELAER: URGENCY: STATUS: COMPLETED Last provider seen: Jose Date of last visit: 04-16-23 Previous Diagnosis/Treatment: See previous note Allergic to Epinephrine: No Allergic to Lidocaine: No PAIN Have you experienced pain in the last several weeks? No Pain score: 5 Location: eyebrow areas Duration: Characteristics: Pain education offered for pain > 3. Have you used tobacco or tobacco products in the last 12 months? No Do you have a personal history of skin cancer? Yes Do you have a family history of skin cancer? No Natural hair color? Natural eye color? /amando/ RUTHANN CANELA Specialty Clinics Signed: 11/20/2023 15:02 RUTHANN CANELA-MARÍA [facility]
--- OUTSIDE RECORDS SUMMARY | 2024-07-14 06:47 | XMS_ITS ---
Author Name [facility] [facility] [place] Address [address] [place] [address] Care Team Providers Care Art Therapy Certified Supervisor Name Role Phone JOSUE JOOENEDINA Primary Care [...] PART B May 30, 2024 PART B [id number] WIGGLESWO RTH,STEWA RT PATIENT MEDICARE (WNR) MEDICARE (M) PART A May 30, 2024 PART A [id number] WIGGLESWO RTH,STEWA RT PATIENT [facility] 2017 SELEC T RETIR ED May 16, 2018 SELECT RETIRED [id number] [phone] WIGGLESWO RTH,STEWA RT PATIENT [facility] 2017 PRIME GROUP A Apr 01, 2017 DODA [id number] WIGGLESWO RTH,STEWA RT PATIENT [facility] 2024 PRIME RETIR ED Apr 01, 2024 PRIME RETIRED [id number] [phone] WIGGLESWO RTHEDGARDKole RT PATIENT Selected Encounter This section includes the information on record at [place] for the Encounter. Date/Time Encounter Type Encounter Description Reason Provider Source Jan 29, 2024 03:00 PM OFFICE O/P EST MOD 30 MIN CARDIOLOGY ICD-10-CM I50.22 Chronic systolic (congestive) heart failure SANDRA MARCOS Catracho Encounter Template Text not used by [place] Assessments - Encounter Diagnoses This section includes the primary and secondary diagnoses documented for the Encounter. Date/Time Primary/Secondary Diagnosis Diagnosis Name Provider Source Feb 28, 2024 02:11 PM PRIMARY Chronic systolic (congestive) heart [facility] Feb 28, 2024 02:11 PM SECONDARY Other forms of chronic ischemic heart disease [facility] Plan of Treatment: Future Appointments (+ 6 months) and Future Tests (+/- 45 days) The Plan of Treatment section includes future care activities for the patient from all [place] [facility]. This section includes future appointments and future orders which are active, pending or scheduled. Future Appointments This section includes appointments that were scheduled to occur 6 months from the date of the Encounter, up to a maximum of 20 appointments. The data comes from all [place] treatment facilities. Appointment Date/Time Appointment Type Appointme nt Facility Name Feb 07, 2024 09:00 AM [facility] [facility] Feb 20[facility] 2024 02:00 PM [facility] - NONE [place] [facility] Feb 21, 2024 02:30 PM [facility]ULATORY - MEDICINE [place] [facility] Mar 16, 2024 10:30 AM AM[facility]ORY - NONE [place] [facility] Mar 23, 2024 10:00 AM [facility] [place] [facility] Apr 08, 2024 08:15 AM [facility] Apr 16, 2024 01:30 PM [facility]ORY - NONE [place] [facility] Apr 16, 2024 02:15 PM AM[facility]ORY - NONE [place] [facility] May 05, 2024 09:40 AM AMBULATORY - SURGERY [place] [facility] Jun 03, 2024 10:00 AM AM[facility]ULATORY - NONE [place] [facility] Jun 05, 2024 09:30 AM [facility]ORY - NONE [place] [facility] Jun 17, 2024 08:00 AM AMBULATORY - MEDICINE [place] [facility] Jun 17, 2024 09:00 AM [facility]ORY - NONE [place] [facility] Jun 25, 2024 08:00 AM AMBULATORY - MEDICINE [place] [facility] Jun 26, 2024 08:20 AM AMBULATORY - SURGERY [place] [facility] Jun 29, 2024 01:30 PM AM[place]ULATORY - NONE [place] [facility] Jul 15, 2024 09:00 AM AM[facility]ULATORY - NONE [place] [facility] Jul 27, 2024 08:00 AM AMBULATORY - SURGERY [place] [facility] Jul 29, 2024 01:00 PM AMBULATORY - MEDICINE [place] [facility] Lab Results: +/- 30 days of [...] Unit Interpretation Reference Range Specimen Type Comment Jan 14, 2024 10:06 AM [facility] PANEL 1 PLASMA Specimen Type: PLASMA [...] Ordering Provider: PHAM SHORT Report Released Date/Time: Dec 27, 2023 09:21 AM Reporting Lab: [address] [id number] Performing Lab: [address] [address] CREATININE 1.34 mg/dL H 0.72-1.25 UREA NITROGEN 26 mg/dL H 9-25 GLUCOSE 156 mg/dL H 74-100 SODIUM 137 mmol/L 136-145 POTASSIUM 4.9 mmol/L 3.5-5.1 CHLORIDE 104 mmol/L 98-107 CO2 25 mmol/L 22-29 CALCIUM 9.7 mg/dL 8.4-10.2 ANION GAP 8 meq/L 3-19 eGFR (CKD-EPI) 59 Encounter Notes: All associated encounter notes This section contains the clinical notes associated to the Encounter. Date/Time Encounter Note(s) Provider Source Jan 29, 2024 03:45 PM CARDIOLOGY ATTENDI OUTPATIENT NOTE: LOCAL TITLE: CARDIOLOGY CLINIC ATTENDING NOTE STANDARD TITLE: CARDIOLOGY ATTENDING OUTPATIENT NOTE DATE OF NOTE: JAN 29, 2024@15:45 ENTRY DATE: JAN 29, 2024@15:45:43 AUTHOR: SANDRA MARCOS COSIGNER: URGENCY: STATUS: COMPLETED CARDIOLOGY CLINIC ATTENDING NOTE Has ADDENDA Cc: Followup HPI: This is a 63 yo man with CAD who presents for follow up of his HFrEF. Overall doing well. No interim hospitalizations for decompensated HF. He has tolerated optimization of his GDMT with the help of pharmacy. Since his last visit he underwent CPX and right heart catheterization and presents to review those results. He reports no current symptoms of dyspnea, orthopnea/PND, chest pain/discomfort, palpitations, presyncope/syncope. ALLERGIES: Vancomycin Gabapentin (dizziness) Pregabalin Simvastatin (muscle aches) PMH: 1. CAD, Left heart catheterization ([facility]) - February 01, 2023 showed HIRED HAND of mid LAD treated 3.5 x 38 and 3.0 x 38 Xience GT, postdilated 4.0 and 3.5 NC trek charo-respectively. Nonflow-limiting RCA disease. LVEF 30% with anterior wall motion abnormality. No personal h/o IA. 2. HTN 3. DM2, diagnosed in 2004 4. 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 ROS: 10-pt review of systems performed and was negative except where indicated below: no F/C, no N/V/diarrhea, normal bowel habits other than recent constipation, normal appetite, + weight loss (unintentional) ~ 12 lbs in 6 weeks. Active and Recently Outpatient Medications (including Supplies): Active Outpatient Medications Status 1) ACETAMINOPHEN 325MG TAB TAKE TWO TABLETS BY MOUTH ACTIVE TWICE A DAY NEEDED FOR PAIN - DO NOT TAKE MORE THAN 12 TABLETS PER DAY 2) ASPIRIN 81MG EC TAB TAKE ONE TABLET BY MOUTH DAILY ACTIVE FOR HEART 3) CHOLECALCIF 25MCG (D3-1,000UNIT) TAB TAKE ONE TABLET ACTIVE BY MOUTH DAILY FOR VITAMIN D SUPPLEMENT 4) CLOPIDOGREL BISULFATE 75MG TAB TAKE ONE TABLET BY ACTIVE MOUTH DAILY TO THIN BLOOD 5) EMPAGLIFLOZIN 10MG TAB TAKE ONE TABLET BY MOUTH EVERY ACTIVE MORNING FOR HEART FAILURE 6) EZETIMIBE 10MG TAB TAKE ONE TABLET BY MOUTH EVERY ACTIVE EVENING FOR CHOLESTEROL 7) FLUTICASONE PROP 50MCG 120D NASAL INHL USE 1 SPRAY IN ACTIVE (S) EACH NOSTRIL DAILY FOR NASAL ALLERGY 8) GLIPIZIDE 10MG TAB TAKE TWO TABLETS BY MOUTH TWICE A ACTIVE DAY FOR DIABETES 9) INSULIN,GLARGINE-YFGN 100UNIT/ML *PEN* INJECT 17 ACTIVE UNITS UNDER THE SKIN DAILY FOR BLOOD SUGAR -DISCARD PEN AFTER 28 DAYS OF USE 10) LATANOPROST 0.005% OPH SOLN PUT 1 DROP IN BOTH EYES ACTIVE AT BEDTIME FOR GLAUCOMA 11) METOPROLOL SUCCINATE 100MG SA TAB TAKE ONE AND ACTIVE ONE-HALF TABLETS BY MOUTH DAILY FOR HEART 12) MULTIVIT/OPHTH AREDS2/LUTE/ZEAX CAP/TAB TAKE 1 ACTIVE SOFTGEL BY MOUTH TWICE A DAY AFTER MEALS FOR EYE HEALTH 13) ROSUVASTATIN CA 40MG TAB TAKE ONE TABLET BY MOUTH ACTIVE DAILY FOR CHOLESTEROL 14) SACUBITRIL 97MG/VALSARTAN 103MG TAB TAKE 1 TABLET BY ACTIVE MOUTH TWICE A DAY FOR HEART FAILURE DOSE INCREASE 15) SPIRONOLACTONE 25MG TAB TAKE ONE TABLET BY MOUTH ACTIVE DAILY FOR HEART FAILURE Inactive Outpatient Medications Status 1) ACCU-CHEK GUIDE (GLUCOSE) TEST STRIP USE 1 STRIP TO TEST BLOOD SUGAR DIRECTED 2) CYCLOBENZAPRINE HCL 10MG TAB TAKE ONE TABLET BY MOUTH AT BEDTIME FOR MUSCLE SPASMS 3) METFORMIN HCL 500MG 24HR SA TAB TAKE TWO TABLETS BY MOUTH TWICE A DAY FOR DIABETES 4) OMEPRAZOLE 20MG EC CAP TAKE ONE CAPSULE BY MOUTH TWICE A DAY FOR STOMACH. TAKE ON AN EMPTY STOMACH Active Non-VA Medications Status 1) Non-VA ASCORBIC ACID 500MG TAB 1000MG MOUTH DAILY ACTIVE 2) Non-VA CENTRUM SILVER TABLET 1 TABLET MOUTH DAILY ACTIVE 3) Non-VA MAGNESIUM OXIDE 420MG TAB 840MG MOUTH DAILY ACTIVE 22 Total Medications O: BP: 100/62 P: 69 R: WT: 199.0 T: 98.1 HT: 72 in [182.9 cm] (08/15/2023 08:04)199.0 lb [90.26 kg] (01/29/2024 15:07) BODY MASS INDEX - 27.0 General: WNWD male, NARD on room air HEENT: PER, EOMI Neck: supple neck, no JVD, no HJR, normal carotid upstrokes, no bruits Chest: CTA bilaterally, no crackles no wheezes CV: regular rate, nlS1S2, no S3S4 gallops, no audible murmurs GI/Abd: soft, NT; no HJR MS/Ext: no edema, warm bilaterally, 2+ radial pulses Neuro: normal strength/tone Psych: normal mood and affect Labs: CBC/PLT, BLOOD - Partial Panel found WBC , BLOOD, 10/14/23 6.2 K/cmm (5.0 - 10.0) RBC, BLOOD, 10/14/23 5.34 M/cmm (4.6 - 6.2) HGB, BLOOD, 10/14/23 13.8 Lg/dL (14.0 - 18.0) HCT, BLOOD, 10/14/23 44.7 % (42.0 - 52.0) MCV, BLOOD, 10/14/23 83.7 fL (80.0 - 94.0) MCH, BLOOD, 10/14/23 25.8 Lpg (27.0 - 31.0) MCHC, BLOOD, 10/14/23 30.9 Lg/dL (32.0 - 36.0) RDW, BLOOD, 10/14/23 17.4 H% (11.0 - 16.0) PLT, BLOOD, 10/14/23@08 204 K/cmm (150 - 450) MPV, BLOOD, 10/14/23@22 10.1 fL (9.0 - 13.1) NRBC, BLOOD, 10/14/23@0822 0.0 % (0.0 - 0.0) PANEL 5 Gallito. date GLUCOSE BUN CREAT SODIUM K CHLOR CO2 01/14/24 10:06 156 H 26 H 1.34 H 137 4.9 104 25 Collection DT Specimen Test Name Result Units Ref Range 08/15/2023 08:51 PLASMA!! CHOLESTEROL 116 mg/dL 0 - 199 08/15/2023 08:51 PLASMA!! TRIGLYCERIDE 77 mg/dL 0 - 149 08/15/2023 08:51 PLASMA!! HDL CHOLESTEROL 43 mg/dL 40 - 69 08/15/2023 08:51 PLASMA!! DIRECT LDL CHOL. 62 mg/dL 0 - 100 !! Indicates COMMENTS AVAILABLE...Refer to Interim Lab Report. Collection DT Specimen Test Name Result Units Ref Range 10/14/2023 08:22 BLOOD HGB 13.8 L g/dL 14.0 - 18.01.6676 mIU/mL (08/15/2023 08:51) ECHO - NONE FOUND Report: CARDIAC MRI WITH AND WITHOUT CONTRAST Indication: Viability Technique: Cardiac MRI was performed on a 1.5T [employer]ou[employer] Ambition X system. ECG gating and respiratory tomi were used for image acquisition. Gadolinium-based contrast (Gadoteridol) 0.15mmol/kg IV was injected at 4ml/s via a peripheral IV with saline flush. Imaging sequences used included black blood imaging with T2 and T1 weighting, bright blood cine imaging, resting perfusion, and delayed contrast imaging. Artifacts: None Comparison: None FINDINGS: Measurements: Left ventricle Ejection fraction: 24 % EDV: 374 mL EDVI: 176 mL/m2 ESV: 284 mL ESVI: 134 mL/m2 Mass: 163 g Mass index: 77 g/m2 Right ventricle Ejection fraction: 56 % EDV: 177 mL EDVI: 83 mL/m2 ESV: 79 mL ESVI: 37 mL/m2 Aortic Root: 35 mm Ascending aorta: 29 mm Descending aorta: 23 mm Left atrial volume index: 28 mL/m2 Qualitative: LV size: Severely dilated LV hypertrophy: None LV systolic function: Severely depressed LV wall motion: septal motion consistent with conduction abnormality Basal: Hypokinetic Mid: akinetic septum. otherwise hypokinetic Distal: akinetic anterior wall and septum, otherwise hypokinetic RV size: Normal RV systolic function: Normal RA size: Normal LA size: Normal Perfusion: Basal: Normal Mid: Normal Distal: Normal Apical Cap: Normal Aorta: normal sized, left sided. No evidence of aneurysm or coarctation Pericardium: Normal thickness. No pericardial effusion Valves (limited views): Aortic: Normal, no significant stenosis or regurgitation Mitral: Normal, no significant stenosis or regurgitation Tricuspid: Normal, no significant stenosis or regurgitation Pulmonic: Normal, no significant stenosis or regurgitation Late Gadolinium Enhancement: Basal: No enhancement Mid: ~50% subendocardial enhancement in the anterior wall Distal: 25-50% subendocardial enhancement int anterior wall extending into the septum. Apical Cap: No enhancement Impression: 1. Severely dilated left ventricle with severely depressed systolic function and an LV ejection fraction 24% 2. There is mid to distal LAD subendocardial enhancement (mixed, likely viable). RCA and LCx are viable. 3. Normal sized right ventricle with normal systolic function and an RV ejection fraction 56% 4. No significant valvular stenosis or regurgitation ALL PROCEDURES Heart rate (Bpm): 60 Aorta [...] 2.4 Wood units Systemic vascular resistance: 1444 [id number]^-[id number] Oxygen Saturations: Arterial saturation: 99% Mixed venous saturation: 63% PROCEDURE DETAILS AND FINDINGS DATE/TIME PERFORMED: JAN 27, 2024@13:51 Patient Information: Name: Cristino Carter Age: 63 Height: 72 in Weight: 193 lbs BMI: 26.2 Date of Test: 01.27.2024 Spirometry: FEV1: 3.28 L (89% predicted) FVC: 4.48 L (93% predicted) FEV1/FVC: 0.73 Reason for CPET: Chronic systolic congestive heart failure. Test Procedure: The patient was exercised on a cycle ergometer using a ramp protocol of 15 [place]ham per minute. The patient was monitored breath by breath for respiratory rate, minute ventilation, oxygen consumption, carbon dioxide production, pulse oximetry. In addition, heart rate and 12-lead EKG were monitored continuously. Blood pressure was measured noninvasively every 2 minutes throughout testing. The patient rested for 2 minutes while exhaled gas was collected. He then pedaled against no resistance for 2 minutes prior to the start of the ramping protocol. Overall Results: The patient was able to exercise for 8.5 minutes of the ramping protocol achieving a maximal workload of 127 [place]ham and a peak oxygen consumption (VO2 max) of 1,663 mL/min (71% predicted) which is equivalent to 19.0 mL/kg/min. His RER at maximal exercise was 1.19. His maximal heart rate was 128 bpm, which is 82% of his age predicted maximum of 156 bpm (normal >90%). The patient did not reach an acceptable oxygen consumption since his VO2 max was < 80-85% of predicted. At maximal exercise, he reported that he stopped primarily due to leg pain. He did not have any chest pain or pressure. Ventilatory Parameters: The patient's VE at maximal exercise was 68.5 L/min which indicates a ventilatory or breathing reserve of 47.8% [(1-Ve/MVV)x100%]. This value is in the normal range for ventilatory reserve which is >30%. His ventilatory equivalent for carbon dioxide (VE/VCO2) was 29 at AT which is within the normal range (should be <35-40). He had no desaturation with exercise. Cardiac Parameters: Pg. 2 01/29/24 15:49 PULM CARDIO STRESS TEST CRISTINO CARTER ABINGDON [id number] : May (63) NOT INPATIENT The patient's heart rate response ((HR max - HR rest)/(VO2 max - VO2 rest)) was 51 which is elevated (should be >20-25 and <45-50). He did appear to reach his anaerobic threshold with exercise testing at 1,231 mL/min of oxygen consumption. This value is 52% of his predicted VO2 max, which is within the normal range (>40% predicted peak VO2). The anaerobic threshold was determined by the V-slope method and the ventilatory equivalent method. Peak O2 pulse was 13 mL/beat (86% predicted, normal >80%) with a flat slope. Delta VO2/Delta Work was 8.89 mL/min/W which is in the normal range (normal >8.3 mL/min/W). His EKG at rest showed normal sinus rhythm with a rate of 60 bpm with known left bundle branch block. EKG tracings with exercise showed sinus tachycardia with LBBB and mild PVC burden. Interpretation: The patient was able to achieve a maximal oxygen consumption (19.0 mL/kg/min) that was 71% of his predicted value which is indicative of abnormal exercise performance (expected to reach 80-85% of predicted VO2 max). The patient demonstrated no pulmonary limitations to exercise. Cardiac parameters were abnormal as detailed above. In summary, this patient had a mild exercise limitation on this CPET. The pattern of limitation was cardiac. It was a maximal exercise test with RER 1.19 at peak exercise. Peak VO2 was 19.0 mL/kg/min. VE/VCO2 slope for the test was 32. Assessment: 1. CASHD, Ischemic cardiomyopathy - well compensated and euvolemic today; results from recent CPX and right heart catheterization reviewed with the patient; overall, results are encouraging; borderline low cardiac index and only mildly reduced VO2max. No indication to consider advanced heart failure therapies at this time. No physical limitations reported today on optimal medical therapy. Discussed possible need for ICD. ECG shows LBBB which would qualify the patient for [employer]-D. Will refer to EP for further discussion. Will arrange for repeat echocardiography to reassess LV systolic function. 2. Hyperlipidemia - on high potency statin and ezetimibe and tolerating well. Re-evaluate fasting lipid panel; goal LDL<55mg/dL. Plan: 1. Continue current medical management. 2. Arrange for EP consultation regarding [employer]-D implantation. 3. Arrange for repeat echocardiography to assess LVEF on optimal medical therapy. RTC 6 months. I spent 35 minutes reviewing the patient's history, entering clinical information in the electronic medical record, interpreting results, reviewing laboratory and cardiographic studies, and performing a [id number] encounter and physical examination. /amando/ SANDRA MARCOS MD CARDIOLOGY ATTENDING Signed: 01/29/2024 16:30 02/03/2024 ADDENDUM STATUS: COMPLETED exited clinic per MD. All medications and treatment plan was discussed with prior to exiting clinic by . to RTC 6 months with [employer] CARD A-6 via F2F, as scheduled. Per provider order/instruction above. If this provider is not available or requires overbook please alert Bankruptcy Processor. Appointment letter to be mailed. a) to be scheduled for ECHO, order on chart. b) Results of testing ordered have been alerted automatically to provider to follow up and notify of results. C) EP consult on chart. /amando/ SANDRA CASTILLO RN Case Manager Signed: 02/03/2024 14:21 SANDRA MARCOS-CDD [facility] Jan 29, 2024 03:09 PM NURSING OUTPATIENT NOTE: LOCAL TITLE: [facility]IN[facility] INTAKE NOTE STANDARD TITLE: NURSING OUTPATIENT NOTE DATE OF NOTE: JAN 29, 2024@15:09 ENTRY DATE: JAN 29, 2024@15:10 AUTHOR: RUTHANN CANELA COSIGNER: URGENCY: STATUS: COMPLETED Reason for visit/chief complaint: B/P: 100/62 (01/29/2024 15:07) P: 69 (01/29/2024 15:07) R: 18 (08/15/2023 08:04) T: 98.1 F [36.7 C] (01/29/2024 15:07) HT: 72 in [182.9 cm] (08/15/2023 08:04) WT: 199.0 lb [90.26 kg] (01/29/2024 15:07) Are you having any pain or recurrent pain in the last several weeks/months? No Location: Duration: Characteristics: Pain education material offered to patient (for pain > 3) No Risk factors history: Hypertension Yes BP Rechecked No Comments: Patient notified manager delivery available upon request for any examinations/procedures. The patient was given a list of his/her medications, instructed to review and discuss any changes or problems with their provider. Patient advised to carry a list of current medications and any allergies with them in the event of emergency situations. Allergies: local and remote VANCOMYCIN, GABAPENTIN, PREGABALIN, SIMVASTATIN, ROSUVASTATIN FACILITY ALLERGY/ADR -------- 581^[facility]^581 VANCOMYCIN Medication Reconciliation ACTIVE OUTPATIENT MEDICATIONS LOCAL/REMOTE ACETAMINOPHEN 325MG TAB Directions: TAKE TWO TABLETS BY MOUTH TWICE A DAY NEEDED FOR PAIN - DO NOT TAKE MORE THAN 12 TABLETS PER DAY Quantity: 100 for 30 days Issued: 01/14/24 Filled: 01/14/24 Expires: 01/14/25 Refills: 3 Status: ACTIVE ASPIRIN 81MG EC TAB Directions: TAKE ONE TABLET BY MOUTH DAILY FOR HEART Quantity: 90 for 90 days Issued: 02/13/23 Filled: 11/01/23 Expires: 02/14/24 Refills: 0 Status: ACTIVE CHOLECALCIF 25MCG (D3-1,000UNIT) TAB Directions: TAKE ONE TABLET BY MOUTH DAILY FOR VITAMIN D SUPPLEMENT Quantity: 100 for 90 days Issued: 12/03/23 Filled: 01/10/24 Expires: 12/03/24 Refills: 3 Status: ACTIVE CLOPIDOGREL BISULFATE 75MG TAB Directions: TAKE ONE TABLET BY MOUTH DAILY TO THIN BLOOD Quantity: 90 for 90 days Issued: 02/13/23 Filled: 11/01/23 Expires: 02/14/24 Refills: 0 Status: ACTIVE EMPAGLIFLOZIN 10MG TAB Directions: TAKE ONE TABLET BY MOUTH EVERY MORNING FOR HEART FAILURE Quantity: 90 for 90 days Issued: 09/25/23 Filled: 01/17/24 Expires: 09/25/24 Refills: 2 Status: ACTIVE EZETIMIBE 10MG TAB Directions: TAKE ONE TABLET BY MOUTH EVERY EVENING FOR CHOLESTEROL Quantity: 90 for 90 days Issued: 09/25/23 Filled: 01/17/24 Expires: 09/25/24 Refills: 2 Status: ACTIVE GLIPIZIDE 10MG TAB Directions: TAKE TWO TABLETS BY MOUTH TWICE A DAY FOR DIABETES Quantity: 360 for 90 days Issued: 12/10/23 Filled: 12/16/23 Expires: 12/10/24 Refills: 3 Status: ACTIVE INSULIN,GLARGINE-YFGN 100UNIT/ML *PEN* Directions: INJECT 17 UNITS UNDER THE SKIN DAILY FOR BLOOD SUGAR -DISCARD PEN AFTER 28 DAYS OF USE Quantity: 5 for 90 days Issued: 10/15/23 Filled: 01/04/24 Expires: 10/15/24 Refills: 2 Status: ACTIVE LATANOPROST 0.005% OPH SOLN Directions: PUT 1 DROP IN BOTH EYES AT BEDTIME FOR GLAUCOMA Quantity: 10 for 90 days Issued: 11/18/23 Filled: 11/18/23 Expires: 02/16/24 Refills: 0 Status: ACTIVE METOPROLOL SUCCINATE 100MG SA TAB Directions: TAKE ONE AND ONE-HALF TABLETS BY MOUTH DAILY FOR HEART Quantity: 135 for 90 days Issued: 09/25/23 Filled: 12/15/23 Expires: 09/25/24 Refills: 2 Status: ACTIVE MULTIVIT/OPHTH AREDS2/LUTE/ZEAX CAP/TAB Directions: TAKE 1 SOFTGEL BY MOUTH TWICE A DAY AFTER MEALS FOR EYE HEALTH Quantity: 180 for 90 days Issued: 01/17/24 Filled: 01/20/24 Expires: 01/17/25 Refills: 3 Status: ACTIVE ROSUVASTATIN CA 40MG TAB Directions: TAKE ONE TABLET BY MOUTH DAILY FOR CHOLESTEROL Quantity: 90 for 90 days Issued: 09/25/23 Filled: 01/17/24 Expires: 09/25/24 Refills: 2 Status: ACTIVE SACUBITRIL 97MG/VALSARTAN 103MG TAB Directions: TAKE 1 TABLET BY MOUTH TWICE A DAY FOR HEART FAILURE DOSE INCREASE Quantity: 180 for 90 days Issued: 11/29/23 Filled: 11/29/23 Expires: 02/27/24 Refills: 0 Status: ACTIVE SPIRONOLACTONE 25MG TAB Directions: TAKE ONE TABLET BY MOUTH DAILY FOR HEART FAILURE Quantity: 90 for 90 days Issued: 09/25/23 Filled: 12/15/23 Expires: 09/25/24 Refills: 2 Status: ACTIVE FLUTICASONE PROP 50MCG 120D NASAL INHL Directions: USE 1 SPRAY IN EACH NOSTRIL DAILY FOR NASAL ALLERGY Quantity: 3 for 90 days Issued: 11/11/23 Filled: 01/30/24 Expires: 11/11/24 Refills: 2 Status: ACTIVE/SUSP No remote medications found. PENDING OUTPATIENT MEDICATONS (LOCAL/REMOTE): No local medications found. No remote medications found. ACTIVE NONVA MEDICATIONS (LOCAL): ASCORBIC ACID 500MG TAB Directions: 1000MG MOUTH DAILY Status: ACTIVE CENTRUM SILVER TABLET Directions: 1 TABLET MOUTH DAILY Status: ACTIVE MAGNESIUM OXIDE 420MG TAB Directions: 840MG MOUTH DAILY Status: ACTIVE OUTPATIENT MEDICATIONS (LOCAL)WITHIN 90 DAYS: FLUTICASONE PROP 50MCG 120D NASAL INHL Directions: USE 1 SPRAY IN EACH NOSTRIL DAILY FOR NASAL ALLERGY Quantity: 3 for 90 days Issued: 11/11/23 Filled: 01/30/24 Expires: 11/11/24 Refills: 2 Status: ACTIVE/SUSP ACCU-CHEK GUIDE (GLUCOSE) TEST STRIP Directions: USE 1 STRIP TO TEST BLOOD SUGAR DIRECTED Quantity: 200 for 90 days Issued: 01/08/23 Filled: 12/12/23 Expires: 01/09/24 Refills: 0 Status: METFORMIN HCL 500MG 24HR SA TAB Directions: TAKE TWO TABLETS BY MOUTH TWICE A DAY FOR DIABETES Quantity: 360 for 90 days Issued: 01/08/23 Filled: 10/22/23 Expires: 01/09/24 Refills: 0 Status: OMEPRAZOLE 20MG EC CAP Directions: TAKE ONE CAPSULE BY MOUTH TWICE A DAY FOR STOMACH. TAKE ON AN EMPTY STOMACH Quantity: 180 for 90 days Issued: 01/08/23 Filled: 10/22/23 Expires: 01/09/24 Refills: 1 Status: DISCONTINUED OUTPATIENT MEDICATIONS (LOCAL) WITHIN 90 DAYS: FLUTICASONE PROP 50MCG 120D NASAL INHL Directions: USE 1 SPRAY IN EACH NOSTRIL DAILY FOR NASAL ALLERGY Quantity: 3 for 90 days Issued: 11/11/23 Filled: 01/30/24 Expires: 11/11/24 Refills: 2 Status: ACTIVE/SUSP ACETAMINOPHEN 325MG TAB Directions: TAKE TWO TABLETS BY MOUTH TWICE A DAY NEEDED FOR PAIN - DO NOT TAKE MORE THAN 12 TABLETS PER DAY Quantity: 100 for 30 days Issued: 12/09/22 Filled: 05/19/23 Expires: 12/10/23 Refills: 0 Status: DISCONTINUED ACETAMINOPHEN 325MG TAB Directions: TAKE TWO TABLETS BY MOUTH TWICE A DAY NEEDED FOR PAIN - DO NOT TAKE MORE THAN 12 TABLETS PER DAY Quantity: 100 for 30 days Issued: 07/28/23 Filled: 11/22/23 Expires: 07/28/24 Refills: 0 Status: DISCONTINUED AMLODIPINE BESYLATE 5MG TAB Directions: TAKE ONE TABLET BY MOUTH DAILY FOR BLOOD PRESSURE/HEART - DO NOT DRINK GRAPEFRUIT JUICE WHILE ON THIS DRUG Quantity: 90 for 90 days Issued: 01/08/23 Filled: 03/26/23 Expires: 01/09/24 Refills: 3 Status: DISCONTINUED ARTIFICIAL TEARS POLYVINYL ALCOHOL Directions: PUT 1 DROP IN EYE(S) FOUR TIMES A DAY NEEDED FOR DRY EYES Quantity: 15 for 30 days Issued: 12/21/22 Filled: 12/21/22 Expires: 12/22/23 Refills: 4 Status: DISCONTINUED CHOLECALCIF 25MCG (D3-1,000UNIT) TAB Directions: TAKE ONE TABLET BY MOUTH DAILY FOR VITAMIN D SUPPLEMENT Quantity: 100 for 90 days Issued: 01/08/23 Filled: 10/22/23 Expires: 01/09/24 Refills: 0 Status: DISCONTINUED DEXTRAN 70/GLYCER 0.2%/HYPROMEL 0.3% OPH Directions: PUT 1 DROP IN EYE(S) FOUR TIMES A DAY NEEDED FOR DRY EYES Quantity: 45 for 90 days Issued: 02/19/23 Filled: 02/19/23 Expires: 02/20/24 Refills: 3 Status: DISCONTINUED FLUTICASONE PROP 50MCG 120D NASAL INHL Directions: USE 1 SPRAY IN EACH NOSTRIL DAILY FOR NASAL ALLERGY Quantity: 2 for 90 days Issued: 10/22/23 Filled: 11/22/23 Expires: 10/22/24 Refills: 3 Status: DISCONTINUED GLIPIZIDE 10MG TAB Directions: TAKE TWO TABLETS BY MOUTH TWICE A DAY FOR DIABETES Quantity: 360 for 90 days Issued: 12/18/22 Filled: 09/27/23 Expires: 12/19/23 Refills: 0 Status: DISCONTINUED KETOTIFEN 0.025%(EQV TO 0.035%) OPH SOLN Directions: PUT 1 DROP IN BOTH EYES TWICE A DAY FOR EYE IRRITATION Quantity: 10 for 90 days Issued: 12/21/22 Filled: 12/21/22 Expires: 12/22/23 Refills: 3 Status: DISCONTINUED LATANOPROST 0.005% OPH SOLN Directions: PUT 1 DROP IN BOTH EYES AT BEDTIME FOR GLAUCOMA Quantity: 10 for 90 days Issued: 12/21/22 Filled: 11/11/23 Expires: 12/22/23 Refills: 0 Status: DISCONTINUED LIDOCAINE 5% OINT Directions: APPLY SMALL AMOUNT TO AFFECTED AREA DAILY FOR PAIN Quantity: 70 for 30 days Issued: 01/08/23 Filled: 01/09/23 Expires: 01/09/24 Refills: 3 Status: DISCONTINUED LISINOPRIL 40MG TAB Directions: TAKE ONE TABLET BY MOUTH DAILY FOR BLOOD PRESSURE/HEART Quantity: 90 for 90 days Issued: 01/08/23 Filled: 01/09/23 Expires: 01/09/24 Refills: 3 Status: DISCONTINUED METOPROLOL SUCCINATE 100MG SA TAB Directions: TAKE ONE-HALF TABLET BY MOUTH DAILY FOR HEART FAILURE Quantity: 45 for 90 days Issued: 08/22/23 Filled: 08/22/23 Expires: 11/20/23 Refills: 0 Status: DISCONTINUED MULTIVIT/OPHTH AREDS2/LUTE/ZEAX CAP/TAB Directions: TAKE 1 SOFTGEL BY MOUTH TWICE A DAY AFTER MEALS FOR EYE HEALTH Quantity: 120 for 60 days Issued: 01/08/23 Filled: 12/01/23 Expires: 01/09/24 Refills: 0 Status: DISCONTINUED MUPIROCIN 2% OINT Directions: APPLY SMALL AMOUNT TO AFFECTED AREA TWICE A DAY FOR SKIN INFECTION Quantity: 22 for 30 days Issued: 04/11/23 Filled: 04/11/23 Expires: 04/11/24 Refills: 1 Status: DISCONTINUED NEEDLE,PEN 32G,4MM Directions: USE 1 NEEDLE UNDER THE SKIN EVERY DAY Quantity: 100 for 90 days Issued: 01/08/23 Filled: 01/09/23 Expires: 01/09/24 Refills: 1 Status: DISCONTINUED NITROGLYCERIN 0.3MG SL TAB Directions: DISSOLVE ONE TABLET UNDER THE TONGUE EVERY 5 MINUTES UP TO 3 DOSES FOR CHEST PAIN -IF NO RELIEF CALL 911 Quantity: 100 for 90 days Issued: 02/13/23 Filled: 02/14/23 Expires: 02/14/24 Refills: 1 Status: DISCONTINUED SACUBITRIL 24MG/VALSARTAN 26MG TAB Directions: TAKE 1 TABLET BY MOUTH TWICE A DAY FOR HEART FAILURE Quantity: 180 for 90 days Issued: 05/08/23 Filled: 05/08/23 Expires: 05/08/24 Refills: 3 Status: DISCONTINUED SPIRONOLACTONE 25MG TAB Directions: TAKE ONE-HALF TABLET BY MOUTH DAILY FOR HEART FAILURE Quantity: 15 for 30 days Issued: 06/04/23 Filled: 07/24/23 Expires: 06/04/24 Refills: 0 Status: DISCONTINUED VALSARTAN 40MG TAB Directions: TAKE ONE TABLET BY MOUTH TWICE A DAY FOR BLOOD PRESSURE/HEART Quantity: 180 for 90 days Issued: 02/13/23 Filled: 05/06/23 Expires: 02/14/24 Refills: 2 Status: DISCONTINUED EMPAGLIFLOZIN 10MG TAB Directions: TAKE ONE TABLET BY MOUTH EVERY MORNING FOR HEART FAILURE Quantity: 90 for 90 days Issued: 02/13/23 Filled: 08/03/23 Expires: 02/14/24 Refills: 1 Status: DISCONTINUED (EDIT) EZETIMIBE 10MG TAB Directions: TAKE ONE TABLET BY MOUTH EVERY EVENING FOR CHOLESTEROL Quantity: 90 for 90 days Issued: 01/08/23 Filled: 08/02/23 Expires: 01/09/24 Refills: 1 Status: DISCONTINUED (EDIT) INSULIN,GLARGINE-YFGN 100UNIT/ML *PEN* Directions: INJECT 15 UNITS UNDER THE SKIN DAILY FOR BLOOD SUGAR -DISCARD PEN AFTER 28 DAYS OF USE Quantity: 5 for 90 days Issued: 01/08/23 Filled: 07/15/23 Expires: 01/09/24 Refills: 2 Status: DISCONTINUED (EDIT) METOPROLOL SUCCINATE 200MG SA TAB Directions: TAKE ONE-HALF TABLET BY MOUTH DAILY FOR HEART Quantity: 45 for 90 days Issued: 09/05/23 Filled: 09/05/23 Expires: 12/04/23 Refills: 0 Status: DISCONTINUED (EDIT) METOPROLOL SUCCINATE 50MG SA TAB Directions: TAKE ONE-HALF TABLET BY MOUTH DAILY FOR HEART FAILURE Quantity: 45 for 90 days Issued: 02/13/23 Filled: 08/03/23 Expires: 02/14/24 Refills: 1 Status: DISCONTINUED (EDIT) ROSUVASTATIN CA 10MG TAB Directions: TAKE ONE-HALF TABLET BY MOUTH WEEKLY FOR CHOLESTEROL Quantity: 7 for 90 days Issued: 01/08/23 Filled: 01/09/23 Expires: 01/09/24 Refills: 3 Status: DISCONTINUED (EDIT) ROSUVASTATIN CA 40MG TAB Directions: TAKE ONE TABLET BY MOUTH DAILY FOR CHOLESTEROL Quantity: 90 for 90 days Issued: 02/13/23 Filled: 08/03/23 Expires: 02/14/24 Refills: 1 Status: DISCONTINUED (EDIT) SACUBITRIL 49MG/VALSARTAN 51MG TAB [...] 2 Status: DISCONTINUED (EDIT) CLINIC MEDICATIONS (LOCAL): SODIUM CHLORIDE 0.9% INJ,SOLN Special: 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 Solution: SODIUM CHLORIDE 0.9% (1000 ML) Issued: 10/15/23 Expires: 10/29/23 Status: Reviewed current medications with patient/signficant other, [...] case of an emergency situation. Yes /amando/ RUTHANN CANELA LPN Signed: 01/29/2024 15:12 RUTHANN CANELA-[facility]
--- OUTSIDE RECORDS SUMMARY | 2024-07-14 06:48 | XMS_ITS | Encounter Summary ---
Author Name [facility] [place] [facility] [place] Address [address] [place] [address] Care Team Providers Care Chainstitch Binder Name Role Phone GODFREY SALAS Primary Care [...] PART A May 30, 2024 PART A [id number] [phone] WIGGLESWO RTH,STEWA RT PATIENT MEDICARE (WNR) MEDICARE (M) PART B May 30, 2024 PART B [id number] WIGGLESWO RTH,STEWA RT PATIENT [facility] 2017 SELEC T RETIR ED May 16, 2018 [facility] [id number] [phone] WIGGLESWO RTH,STEWA RT PATIENT [facility] 2017 [employer] A Apr 01, 2017 DODA [id number] WIGGLESWO RTH,STEWA RT PATIENT [facility] 2024 PR[facility] RETIR ED Apr 01, 2024 [employer] [id number] [phone] WIGGLESWO RTH,STEWA RT PATIENT Selected Encounter This section includes the information on record at [place] for the Encounter. Date/Time Encounter Type Encounter Description Reason Provider Source Jan 27, 2024 01:00 PM CARDIOPULM EXERCISE TESTING PULMONARY FUNCTION ICD-10-CM I10 Essential (primary) hypertension CATRACHITO SAMS I[facility] Encounter Template Text not used by [place] Assessments - Encounter Diagnoses This section includes the primary and secondary diagnoses documented for the Encounter. Date/Time Primary/Secondary Diagnosis Diagnosis Name Provider Source Jan 27, 2024 02:01 PM PRIMARY [facility] ([facility] [place] [facility] Plan of Treatment: Future Appointments (+ 6 months) and Future Tests (+/- 45 days) The Plan of Treatment section includes future care activities for the patient from all [place] treatmentfacilities. This section includes future appointments and future orders which are active, pending or scheduled. Future Appointments This section includes appointments that were scheduled to occur 6 months from the date of the Encounter, up to a maximum of 20 appointments. The data comes from all [place] treatment facilities. Appointment Date/Time Appointment Type Appointme nt Facility Name Jan 29, 2024 03:00 PM [facility] Feb 07, 2024 09:00 AM [facility] - [facility]GERY [place] [facility] Feb 20, 2024 02:00 PM [facility] - [facility] [facility] Feb 21, 2024 02:30 PM [facility] Mar 16, 2024 10:30 AM [facility] [place] [facility] Mar 23, 2024 10:00 AM AMBULATORY - MEDICINE [place] [facility] Apr 08, 2024 08:15 AM [facility] Apr 16, 2024 01:30 PM [facility] [place] [facility] Apr 16, 2024 02:15 PM [facility] - [facility] [facility] May 05, 2024 09:40 AM AMBULATORY - [place]GERY [place] [facility] [facility] Jun 03, 2024 10:00 AM [facility] [place] [facility] Jun 05, 2024 09:30 AM [facility]ONE [place] [facility]Jun 17, 2024 08:00 AM [facility] [place] [facility] Jun 17, 2024 09:00 AM [facility] - [facility]ONE [place] Jun 25, 2024 08:00 AM AMBULATORY - MEDICINE [place] [facility] Jun 26, 2024 08:20 AM AMBULATORY - SURGERY [place] [facility] Jun 29, 2024 01:30 PM [facility]ORY - [facility]ONE [place] [facility] Jul 15, 2024 09:00 AM [facility] - [facility]ONE [place] [facility] Jul 27, 2024 08:00 AM [facility] Lab Results: +/- 30 days [...] Type Comment Jan 14, 2024 10:06 AM [facility] PANEL 1 PLASMA Specimen Type: PLASMA [...] Dec 27, 2023 09:21 AM Reporting Lab: [address] [id number] Performing Lab: [address] [id number] CREATININE 1.34 mg/dL H 0.72-1.25 UREA NITROGEN [...] Encounter. Date/Time Encounter Note(s) Provider Source Jan 27, 2024 01:51 PM PULMONARY NOTE: LOCAL TITLE: CP PULMONARY FUNCTION TEST STANDARD TITLE: PULMONARY NOTE DATE OF NOTE: JAN 27, 2024@13:51 ENTRY DATE: JAN 27, 2024@13:51:30 AUTHOR: SAI CORRAL EXP COSIGNER: URGENCY: STATUS: COMPLETED PROCEDURE SUMMARY CODE: Abnormal DATE/TIME PERFORMED: JAN 27, 2024@13:51 Patient Information: Name: Kate Carter Age: 63 Height: 72 in Weight: [...] had no desaturation with exercise. Cardiac Parameters: The patient's heart rate response ((HR max [...] VE/VCO2 slope for the test was 32. /amando/ SAI CORRAL Pulmonary/Critical Care Attending Signed: 01/28/2024 10:14 [facility] Jan 27, 2024 12:51 PM CONSENT: LOCAL TITLE: CONSENT CLINICAL SCANNED STANDARD TITLE: CONSENT DATE OF NOTE: JAN 27, 2024@12:51 ENTRY DATE: FEB 25, 2024@12:52:11 AUTHOR: TALA MEYER EXP COSIGNER: URGENCY: STATUS: COMPLETED The scanned document may be viewed in [employer]. /lauryn MEYER HOUSEKEEPING LAUNDRY WORKER Signed: 02/25/2024 12:52 [facility]
--- OUTSIDE RECORDS SUMMARY | 2024-07-14 06:48 | XMS_ITS | Encounter Summary ---
Author Name [facility] [place] Organization [place] Address [address] [place] [address] Care Team Providers Care Printer'S Devil Name Role Phone JOSUE JOOENEDINA Primary Care Provider Erikaa SHRUTHI Luis Primary Care Provider Unavailabl e [...] PART A May 30, 2024 PART A [id number] [id number] WIGGLESWO RTH,STEWA RT PATIENT MEDICARE (WNR) MEDICARE (M) PART B May 30, 2024 PART B [id number] [id number] WIGGLESWO RTH,STEWA RT PATIENT [facility] 2017 SELEC T RETIR ED May 16, 2018 [facility] RETIRED [id number] WIGGLESWO RTH,STEWA RT PATIENT [facility] 2018 [employer] A Apr 01, 2017 DODA [id number] WIGGLESWO RTH,STEWA RT PATIENT [facility] 2024 PRIME RETIR ED Apr 01, 2024 PRIME RETIRED [id number] [phone] WIGGLESWO RTH,EDGARDKole RT PATIENT Selected Encounter This section includes the information on record at [place] for the Encounter. Date/Time Encounter Type Encounter Description Reason Provider Source Jun 29, 2024 10:21 AM MTMS BY ORACIO SMART 15 MIN TELEPHONE/ANCILLA JORDEN ICD-10-CM I42.9 Cardiomyopathy, unspecified DEJA,PHAM E IHE Encounter Template Text not used by [place] Assessments - Encounter Diagnoses This section includes the primary and secondary diagnoses documented for the Encounter. Date/Time Primary/Secondary Diagnosis Diagnosis Name Provider Source Jun 29, 2024 10:21 AM PRIMARY Cardiomyopathy, unspecified DEJA,PHAM E KJ- [place] [facility] Plan of Treatment: Future Appointments (+ 6 months) and Future Tests (+/- 45 days) The Plan of Treatment section includes future care activities for the patient from all [place] treatmentfacilities. This section includes future appointments and future orders which are active, pending or scheduled. Future Appointments This section includes appointments that were scheduled to occur 6 months from the date of the Encounter, up to a maximum of 20 appointments. The data comes from all [facility]. Appointment Date/Time Appointment Type Appointme nt Facility Name Jul 15, 2024 09:00 AM AM[place]ORY - NONE [place] [facility] Jul 27, 2024 08:00 AM [facility] [place] [facility] Jul 29, 2024 01:00 PM [facility]ORY - [place]ICINE [place] [facility] August 03, 2024 07:00 AM [facility]ONE [place] [facility] Sep 23, 2024 10:00 AM [facility]ORY - [facility]ICINE [place] [facility] Nov 03, 2024 09:40 AM AM[facility]ORY - SURGERY [place] [facility] Active, Pending, and Scheduled Orders This section includes a listing of several types of active, pending, and scheduled orders, including clinic medications orders, diagnostic test orders, procedure orders and consult orders; where the start date of the order is 45 days before the date of the Encounter or 45 days after the date of theEncounter. The data comes from all [facility]. Test Date/Time Test Type Test Details Facility Name Jun 26, 2024 09:07 AM Consult Order PAIN CLINI C ANESTHESIOLOGY/PAIN CD OUTPATIENT Cons Sprinkler [facility] Jul 15, 2024 12:00 AM Imaging - Ultrasou nd Order FNA BX W/ ULTRASND GDN,1ST LESION [facility] Radiology Reports: +/- 30 days [...] the Encounter. The data comes from all [place] treatment facilities. Date/Time Radiology Report Provider Source Jun 29, 2024 12:58 PM U/S THYROID: RAULKATE [id number] -1960 M Exm Date: JUN 29, 2024@12:58 Req Phys: SHRUTHI HENLEY Pat Loc: X-RAY/MRI/DOROTHEA/NC (Req'g Loc Img Loc: ULTRASOUND Service: [place] [address] (Case [id number] COMPLETE) U/S THYROID (US Detailed) CPT:19516 Reason for Study: SEE CLINICAL HISTORY Clinical History: REASON FOR EXAM:Nodule/Lesion follow up PERTINENT PATIENT HISTORY: PROVIDER ExtPager# Report Status: Verified Date Reported: JUN 30, 2024 Date Verified: JUN 30, 2024 Radiographic Technologist E-Sig: Report: EXAMINATION: THYROID ULTRASOUND CLINICAL INDICATIONS: [...] Interpreting Staff: CHIN CASTILLO, Radiologist Verified by nurse sane for CHIN CASTILLO /CHIN LEES-CDD [facility] Jun 17, 2024 08:36 AM MRI C SPINE W/O CO NTRAST: KATE CARETR [id number] -[id number] M Exm Date: JUN 17, 2024@08:36 Req Phys: SHRUTHI HENLEY Loc: XIOMY PACT JACI 1-2 (Req'g Lo Img Loc: MAGNETIC RESONANCE IMAGING Service: [place] [address] (Case [id number] COMPLETE) MRI C SPINE W/O CONTRAST (MRI Detailed) CPT:70290 Reason for Study: SEE CLINICAL HISTORY Clinical History: STATUS OF PLAIN FILMS:Done, exam date/impression above. MRI Screening (Required): IMPLANTED DEVICE DOCUMENTATION 03/11/2024 09:29 Local Title: IMPLANTED CARDIAC DEVICE Standard Title: CLINICAL WARNING Patient has an Implanted Cardiac Device. Cardiac Device Type: BIV ICD Embroidery Worker: [facility] SIMON Device details: Generator - [employer]Ardon, model [id number], SN [id number]. RA lead - [employer], model [id number], SN [id number]. RV lead - [employer], model 7122Q, SN [id number]. LV - [employer]Ardon, model 1458QL, SN [id number]. Parameters: RA - threshold - 0.25v@0.5ms, 460 ohms, sensing - >5mV RV - threshold - 0.25v@0.5ms, 640 ohms, sensing - >12mV LV - threshold - 1.25v@0.5ms, 700 ohms. DFT's - were not assessed. Shock coil impedance - 73 ohms. Implant 03/10/2024 Dr. Mckinney Signed by: /es/ RUTHANN BARONE RN 03/11/2024 09:32 Does the [place] have any Cardiac Implants? ICD Does the have any implanted stimulators? None Does the [place] have cochlear implants? No Does the [place] have Cerebral aneurysm clip(s)? No Does the have any shrapnel? No If yes, where in your body? Please list other implants not listed above: MRI table has a weight limit of 551 lbs. [place]'s Weight: *198 lb [89.81 kg] (03/16/2024 10:02) Is this patient claustrophobic?: No REASON FOR EXAM: OTHER (provide detailed justification for your request) PERTINENT PATIENT HISTORY: Cervical radiculopathy Risk factors for GADOLINIUM NEPHROGENIC SYSTEMIC SCLEROSIS: Report Status: Verified Date Reported: JUN 17, 2024 Date Verified: JUN 17, 2024 Radiographic Technologist E-Sig: Report: KATE PAVON RAUL 1960 EXAM: [...] Staff: FATUMA GARCIA, Staff Physician Verified by nurse sane for FATUMA GARCIA /FATUMA [facility] Encounter Notes: All associated encounter notes This section contains the clinical notes associated to the Encounter. Date/Time Encounter Note(s) Provider Source Jun 29, 2024 04:40 PM ADDENDUM: LOCAL TITLE: Addendum STANDARD TITLE: ADDENDUM DATE OF NOTE: JUN 29, 2024@16:40:54 ENTRY DATE: JUN 29, 2024@16:40:55 AUTHOR: SHRUTHI HENLEY EXP COSIGNER: URGENCY: STATUS: COMPLETED Please tell patient to decrease the glipizide to 10 mg twice daily and the Lantus to 20 units daily. /amando/ Shruthi Henley MD Primary Care Physician Signed: 06/29/2024 16:41 Receipt Acknowledged By: 07/01/2024 09:47 /amando/ TORI CORDOVA Registered Nurse --- Original Document --- 06/29/24 CARDIOLOGY PHARMACOTHERAPY TELEPHONE NOTE: Spoke with RAULKATE LIBRADO a 64 yo on phone to review HF management. reports his breathing has been good and denies recent changes. [place] denies edema, PND. reports he uses 1 pillow under his head with head of bed raised a couple inches to help breathing d/t sinuses and for comfort, although he states he is able to lay flat on the couch w/o issue. previously stated he has had his bed this way for about 10 years. [place] denies dizziness. [place] states w/weight gain he did not notice any additional s/sx of fluid overload. Allergies: VANCOMYCIN, GABAPENTIN, PREGABALIN, SIMVASTATIN, ROSUVASTATIN Per 09/25/23 Cardiology Clinic Note: PMH: 1. 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 Nonflow-limiting RCA disease. LVEF 30% with anterior wall motion abnormality. No personal h/o PA. 2. HTN 3. DM2, diagnosed in 2004 4. Hyperlipidemia SH: EtOH: denies Tobacco Use: denies Exercise: cardiac rehab MWF Diet: Breakfast: 3 egg omlette w/spinach, broccoli, tomatoes, onion, cheese; occasionally meat (leana Reclog); home canned salsa Lunch: apple Dinner: salad, salmon, brisket, burrito Snacks: apples, nuts Additional Salt Intake: does not add Fluid Intake: water, green tea, coffee Restaurant Meals: 1x/week Home BP Log: Takes Medications 5a/5p; Checks BP 7a/7-8p Date BP HR Weight 06/15 116/79 77 [...] 199.2 100/61 72 06/29 115/79 78 198.4 PREVIOUS ENCOUNTER 05/28/24: Date BP HR Weight 05/17 110/79 [...] Physician: JESSE NGUYEN 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 REPLACES GLARGINE-YFGN Indication: FOR BLOOD SUGAR 11) LATANOPROST 0.005% OPH SOLN PUT 1 DROP IN BOTH EYES AT ACTIVE BEDTIME Indication: FOR GLAUCOMA 12) METFORMIN HCL 500MG 24HR SA TAB TAKE TWO TABLETS BY MOUTH ACTIVE TWICE A DAY FOR DIABETES 13) METOPROLOL SUCCINATE 100MG SA TAB TAKE ONE AND ONE-HALF ACTIVE TABLETS BY MOUTH DAILY Indication: FOR HEART 14) MULTIVIT/OPHTH AREDS2/LUTE/ZEAX CAP/TAB TAKE 1 SOFTGEL BY ACTIVE MOUTH TWICE A DAY AFTER MEALS FOR EYE HEALTH 15) OMEPRAZOLE 20MG EC CAP TAKE ONE CAPSULE BY MOUTH TWICE A DAY ACTIVE FOR STOMACH. TAKE ON AN EMPTY STOMACH 16) ROSUVASTATIN CA 40MG TAB TAKE ONE TABLET BY MOUTH DAILY ACTIVE Indication: FOR CHOLESTEROL 17) SACUBITRIL 97MG/VALSARTAN 103MG TAB TAKE 1 TABLET BY MOUTH ACTIVE TWICE A DAY Indication: FOR HEART FAILURE 18) SPIRONOLACTONE 25MG TAB TAKE ONE TABLET BY [...] OXIDE 420MG TAB 840MG MOUTH DAILY ACTIVE 24 Total Medications A/P: HFrEF: [place]'s weight had trended up, likely d/t diet but is trending back down. Will add PRN diuretic for future weight gain. Reviewed appropriate use with . [place]'s BP/HR fairly well controlled at this time. [...] arise. Time spent on phone with : 20 min PBM PharmD Pharmacotherapy Rem V12: PHARMACIST INTERVENTIONS: HEART FAILURE Medication Intervention(s) Initiate new medication for diuresis Alert to PCP: states he has not taken insulin the last 2 nights. He states he was alerted last night around midnight his BG was 68 and he took 5 glucose tabs and drank apple juice. He states he did this all at once and went to 121 at 1AM and this morning his BG was 144. He states he is having to use glucose tabs 3x/week. [place] states he takes his glipizide 30 min before meals, but has decreased his carbohydrate intake at meals. /amando/ ORACIO THIBODEAUXD, BCACP Clinical Vp Account Director Signed: 06/29/2024 16:26 Receipt Acknowledged By: 06/29/2024 16:40 /amando/ Shruthi Henley MD Primary Care Physician SHRUTHI HEN[place] [facility] Jun 29, 2024 10:21 AM PHARMACY TELEPHONE ENCOUNTER NOTE: LOCAL TITLE: CARDIOLOGY PHARMACOTHERAPY TELEPHONE NOTE STANDARD TITLE: PHARMACY TELEPHONE ENCOUNTER NOTE DATE OF NOTE: JUN 29, 2024@10:21 ENTRY DATE: JUN 29, 2024@10:21:46 AUTHOR: PHAM SHORT EXP COSIGNER: URGENCY: STATUS: COMPLETED CARDIOLOGY PHARMACOTHERAPY TELEPHONE NOTE Has ADDENDA Spoke with KATE CARTER a 64 yo on phone to review HF management. reports his breathing has been good and denies recent changes. [place] denies edema, PND. [place] reports he uses 1 pillow under his head with head of bed raised a couple inches to help breathing d/t sinuses and for comfort, although he states he is able to lay flat on the couch w/o issue. previously stated he has had his bed this way for about 10 years. [place] denies dizziness. [place] states w/weight gain he did not notice any additional s/sx of fluid overload. Allergies: VANCOMYCIN, GABAPENTIN, PREGABALIN, SIMVASTATIN, ROSUVASTATIN Per 09/25/23 Cardiology Clinic Note: PMH: 1. 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 Nonflow-limiting RCA disease. LVEF 30% with anterior wall motion abnormality. No personal h/o PA. 2. HTN 3. 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 REPLACES GLARGINE-YFGN Indication: FOR BLOOD SUGAR 11) LATANOPROST 0.005% OPH SOLN PUT 1 DROP IN BOTH EYES AT ACTIVE BEDTIME Indication: FOR GLAUCOMA 12) METFORMIN HCL 500MG 24HR SA TAB TAKE TWO TABLETS BY MOUTH ACTIVE TWICE A DAY FOR DIABETES 13) METOPROLOL SUCCINATE 100MG SA TAB TAKE ONE AND ONE-HALF ACTIVE TABLETS BY MOUTH DAILY Indication: FOR HEART 14) MULTIVIT/OPHTH AREDS2/LUTE/ZEAX CAP/TAB TAKE 1 SOFTGEL BY ACTIVE MOUTH TWICE A DAY AFTER MEALS FOR EYE HEALTH 15) OMEPRAZOLE 20MG EC CAP TAKE ONE CAPSULE BY MOUTH TWICE A DAY ACTIVE FOR STOMACH. TAKE ON AN EMPTY STOMACH 16) ROSUVASTATIN CA 40MG TAB TAKE ONE TABLET BY MOUTH DAILY ACTIVE Indication: FOR CHOLESTEROL 17) SACUBITRIL 97MG/VALSARTAN 103MG TAB TAKE 1 TABLET BY MOUTH ACTIVE TWICE A DAY Indication: FOR HEART FAILURE 18) SPIRONOLACTONE 25MG TAB TAKE ONE TABLET BY [...] OXIDE 420MG TAB 840MG MOUTH DAILY ACTIVE 24 Total Medications A/P: HFrEF: [place]'s weight had trended up, likely d/t diet but is trending back down. Will add PRN diuretic for future weight gain. Reviewed appropriate use with . 's BP/HR fairly well controlled at this time. [...] arise. Time spent on phone with : 20 min PBM PharmD Pharmacotherapy Rem V12: PHARMACIST INTERVENTIONS: HEART FAILURE Medication Intervention(s) Initiate new medication for diuresis Alert to PCP: states he has not taken insulin the last 2 nights. He states he was alerted last night around midnight his BG was 68 and he took 5 glucose tabs and drank apple juice. He states he did this all at once and went to 121 at 1AM and this morning his BG was 144. He states he is having to use glucose tabs 3x/week. states he takes his glipizide 30 min before meals, but has decreased his carbohydrate intake at meals. /amando/ PHAM SHORT, PHARMD, BCACP Clinical Vp Account Director Signed: 06/29/2024 16:26 Receipt Acknowledged By: 06/29/2024 16:40 /amando/ Shruthi Henley MD Primary Care Physician 06/29/2024 ADDENDUM STATUS: COMPLETED Please tell patient to decrease the glipizide to 10 mg twice daily and the Lantus to 20 units daily. /amando/ Shruthi Henley MD Primary Care Physician Signed: 06/29/2024 16:41 Receipt Acknowledged By: 07/01/2024 09:47 /amando/ TORI CORDOVA Registered Nurse 07/01/2024 ADDENDUM STATUS: COMPLETED voiced an understanding regarding DM medication changes /amando/ TORI CORDOVA Registered Nurse Signed: 07/01/2024 09:48 PHAM SHORT-MARÍA [facility]
--- OUTSIDE RECORDS SUMMARY | 2024-07-14 06:48 | XMS_ITS | Encounter Summary ---
Author Name [place] Address [address] [place] [address] Care Team Providers Care Sales Program Manager Name Role Phone GODFREY SALAS Primary Care [...] PART B May 30, 2024 PART B [id number] UD24 [phone] WIGGLESWO RTH,STEWA RT PATIENT MEDICARE (WNR) MEDICARE (M) PART A May 30, 2024 PART A [id number] UD24 [phone] WIGGLESWO RTH,STEWA RT PATIENT [facility] 2017 SELEC T RETIR ED May 16, 2018 [facility] [id number] [phone] WIGGLESWO RTH,STEWA RT PATIENT [facility] 2017 [employer] A Apr 01, 2017 DODA [id number] WIGGLESWO RTH,STEWA RT PATIENT [facility] 2024 PRIME RETIR ED Apr 01, 2024 PRIME RETIRED [id number] [phone] WIGGLESWO RTH,STEWA RT PATIENT Selected Encounter This section includes the information on record at [place] for the Encounter. Date/Time Encounter Type Encounter Description Reason Pro vider Source Oct 15, 2023 12:03 PM Outpatient Encounter AMBULATORY IHE Encounter Template Text not used by [place] Plan of Treatment: Future Appointments (+ 6 months) and Future Tests (+/- 45 days) The Plan of Treatment section includes future care activities for the patient from all [place] treatmentfacilities. This section includes future appointments and future orders which are active, pending or scheduled. Future Appointments This section includes appointments that were scheduled to occur 6 months from the date of the Encounter, up to a maximum of 20 appointments. The data comes from all [place] treatment facilities. Appointment Date/Time Appointment Type Appointme nt Facility Name Nov 05, 2023 08:30 AM AMBULATORY - REHAB MEDICIN [facility] Nov 05, 2023 08:40 AM [facility] Nov 20, 2023 03:00 PM [facility] - [facility]ICINE [place] [facility] Nov 26, 2023 10:30 AM [facility] - NONE [place] [facility] Dec 12, 2023 04:00 PM [facility]ORY - [facility]ICINE [place] [facility] Jan 01, 2024 08:30 AM AMBULATORY - REHAB MEDICIN E [facility] Jan 14, 2024 08:30 AM [facility] Jan 27, 2024 01:00 PM [facility] - MEDICINE [place] [facility] Jan 29, 2024 03:00 PM AM[facility]ORY - MEDICINE [place] [facility] Feb 07, 2024 09:00 AM [facility]ORY - SURGERY [place] [facility] Feb 20, 2024 02:00 PM [facility] - NONE [place] [facility] Feb 21, 2024 02:30 PM [facility]ORY - MEDICINE [place] [facility] Mar 16, 2024 10:30 AM [facility] NONE [place] [facility] Mar 23, 2024 10:00 AM AM[place]ORY - [place]ICINE [place] [facility] Apr 08, 2024 08:15 AM AM[facility]ORY - MEDICINE [place] [facility] Apr 16, 2024 01:30 PM [facility] Apr 16, 2024 02:15 PM [facility]ATORY - NONE [facility] Lab Results: +/- 30 days of the encounter This section includes the Chemistry and Hematology Lab Results on record with [place] for the patient. Radiology Reports and Pathology Reports are provided separately, in subsequent sections. Lab Results This section contains the Chemistry/Hematology Results that were resulted 30 days before or 30 daysafter the date of the Encounter. Date/Time Source Result Type Result - Unit Interpretation Reference Range Specimen Type Comment Nov 05, 2023 09:34 AM [facility] PANEL 1 PLASMA Specimen Type: PLASMA [...] Oct 22, 2023 09:51 AM Reporting Lab: [place] [id number] Performing Lab: [place] [id number] CREATININE 1.24 mg/dL 0.72-1.25 UREA NITROGEN 28 mg/dL H 9-25 GLUCOSE 182 mg/dL H 74-100 SODIUM 140 mmol/L 136-145 POTASSIUM 4.8 mmol/L 3.5-5.1 CHLORIDE 105 mmol/L 98-107 CO2 28 mmol/L 22-29 CALCIUM 9.8 mg/dL 8.4-10.2 ANION GAP 7 meq/L 3-19 eGFR (CKD-EPI) 65 Oct 15, 2023 09:36 AM [facility] POC AVOX GAS MIXED VENOUS Specimen Type : MIXED VENOUS Comment: Specimen Site: Pulmonary artery, Main Test performed by: [id number] Meter #:[id number] Ordering Provider: DOV GUILLERMO Report Released Date/Time: Oct 15, 2023 10:34 AM Reporting Lab: [place] [id number] Performing Lab: [place] [id number] .O2HB (AVOX) 62.5 60-80 .HGB (AVOX) 12.2 g/dL 12-18 Oct 14, 2023 08:22 AM [facility] CBC/PLT BLOOD Specimen Type: BLOOD No comment entered. Ordering Provider: DOV RAMSEY Report Released Date/Time: Oct 10, 2023 12:55 PM Reporting Lab: [place] [id number] Performing Lab: [place] [id number] WBC 6.2 10*3/uL 5.0-10.0 RBC 5.34 10*6/uL 4.6-6.2 HGB 13.8 g/dL L 14.0-18.0 HCT 44.7 42.0-52.0 MCV 83.7 fL 80.0-94.0 MCH 25.8 pg L 27.0-31.0 MCHC 30.9 g/dL L 32.0-36.0 PLT 204 10*3/uL 150-450 MPV 10.1 fL 9.0-13.1 RDW 17.4 H 11.0-16.0 NRBC 0.0 0.0-0.0 Oct 14, 2023 08:22 AM [facility] B[facility] (Sky[place]) PLASMA Specimen Type: PLASMA Comment: BNP results less than or equal to 100 pg/ml are field sales representative of normal values in patients without CHF. BNP results greater than 100 pg/ml are considered abnormal and suggestive of CHF. Higher BNP concentrations in the first 72 hours after Acute Coronary Syndrome are associated with an increased risk of , myocardial infarction and CHF. Ordering Provider: SANDRA MARCOS Report Released Date/Time: Oct 09, 2023 01:38 PM Reporting Lab: [address] [id number] Performing Lab: [address] [address] BNP (HARDIN) 204 pg/mL H 0-100 Oct 14, 2023 08:22 AM [facility] MAGNESIUM PLASMA Specimen Type: PLASM A Comment: [...] Oct 09, 2023 01:38 PM Reporting Lab: [address] [id number] Performing Lab: [address] [phone] MAGNESIUM 2.1 mg/dL 1.6-2.6 Oct 14, 2023 08:22 AM [facility] PANEL 1 PLASMA Specimen Type: PLASM [...] Oct 09, 2023 01:38 PM Reporting Lab: [address] [address] Performing Lab: [address] [phone] CREATININE 1.27 mg/dL H 0.72-1.25 UREA NITROGEN [...] 15, 2023 08:39 AM 59 130/77 100 [facility] Radiology Reports: +/- 30 days of the [...] the Encounter. The data comes from all [place] treatment facilities. Date/Time Radiology Report Provider Source Oct 15, 2023 07:30 AM PLATE DEVELOPER - FLUORO UP TO 1 HOUR: KATE CARTER [id number] -1960 M Exm Date: OCT 15, 2023@07:30 Req Phys: DOV HURTADO Loc: CARDIAC CATH/OPT/CDD (Req'g Lo Img Loc: ANGIO/NEURO/INTERVENTIONAL Service: [place] [address] (Case [id number] COMPLETE) PLATE DEVELOPER - FLUORO UP TO 1 HOUR (ANI Detailed) CPT:88246 Reason for Study: RHC Clinical History: RHC Report Status: Verified Date Reported: Date Verified: OCT 15, 2023 Carbon Paper Machine Operator E-Sig: Report: See Impression Impression: Registered Nursing Professor imaging capture for storage. Please see CPRS Registered Nursing Professor consults and notes in CPRS for final reporting and exam documentation. Primary Diagnostic Code: Primary Interpreting Staff: PHYS OTHER THAN [place] RADIOL, Staff Physician Verified by client specialist for PHYS OTHER THAN [place] RADIOL /[facility] RADIOLOGIST,[place] OTHER [place]-[facility]
--- OUTSIDE RECORDS SUMMARY | 2024-07-14 06:48 | XMS_ITS | Clinical Summary ---
Author Organization [facility] , [facility] Address [address] [place] [address] Phone Care Team Providers Care Horizontal [employer] Set Up Operator Name Role Phone Flores FOY Aaron Tolliver Unavailable [phone] Shruthi Lizarraga Unavailable Unavailable Reason for Visit and Chief Complaint The Chief Complaint is: right third toe Problems Includes: Problems addressed during this encounter and other active Problems All Visits Onset Date Resolved Date Provider Condition S tatus Bone Pain Right Fingers 04/21/2018 Sav Torres MD Active Last Documented On 9 9:22AM ; [facility], [facility] Pain in Both Feet 01/21/2018 Aaron Tanner DPM Active Last Documented On 8 8:55AM ; [facility], [facility] Plan of Treatment I did review the history and examined this patient. he seems to be doing well. The infection has resolved. I will release him from care. I did advise him that the nail may come off at some point in the future. I will see him back as needed. I have released him from surgical care for the fibroma excision. - Last Documented On 06/27/2018 8:48AM ; [facility], [facility] Instructions to patient Instructions for patient to see pcp for bp Last Documented On 9 8:29AM ; [facility], [facility] Assessments Includes: Assessments from this encounter Findings status post plantar fibroma excision, right foot, doing well - Last Documented On 06/27/2018 8:48AM ; [facility], [facility] Paronychia, third toe, right, resolved - Last Documented On 06/27/2018 8:48AM ; [facility] Instructions Includes: Instructions from this encounter Instructions to patient Instructions for patient to see pcp for bp Last Documented On 9 8:29AM ; [facility] Medical Equipment - Implanted Devices Includes: Current Devices No Medical Equipment Recorded Medications Includes: Medications discussed during this encounter and other current Medications Current Medications (continue as prescribed) Cholecalciferol 25 MCG (1000 UT) Oral Tablet Chewable 06/20/2020 Provider: Diagnosis: Last Documented On 12:12PM By Karuna Chase ; [facility], [facility] Ketotifen Fumarate 0.025% Ophthalmic Solution 06/21/19 Provider: Diagnosis: Last Documented On 12:11PM By Karuna Chase ; [facility] PreserVision AREDS Oral Tablet 06/20/2020 Provider: Diagnosis: Last Documented On 12:10PM By Karuna Chase ; [facility] Fluticasone Furoate 50 MCG/A CT Inhalation Aerosol Powder Breath Activated 06/20/2020 Provider: Diagnosis: Last Documented On 12:10PM By [facility] Lidocaine 5% External Ointment 06/20/2020 Provider: Diagnosis: Last Documented On 12:10PM By Karuna Chase ; [facility], [facility] Omeprazole 20 MG Oral Ta blet Delayed Release Disintegrating 06/20/2020 Provider: Diagnosis: Last Documented On 12:09PM By Karuna Chase ; [facility] Lisinopril 40 MG Oral Tablet 06/20/2020 Provider: Diagnosis: Last Documented On 12:09PM By Karuna Chase ; [facility] Accu-Chek Soft Touch Lancets Miscellaneous 06/20/2020 Provider: Diagnosis: Last Documented On 12:09PM By Karuna Chase ; [facility] Droplet Pen Silverpeak 32G X 5 MM Miscellaneous Provider: Diagnosis: Last Documented On 12:08PM By Karuna Chase ; [facility] Accu-Chek Softclix Lancet Dev Kit 06/20/2020 Provide r: Diagnosis: Last Documented On 1 12:07PM By Karuna Chase ; [facility], [facility] metFORMIN HCl 500 MG Oral Tablet 06/20/2020 Provider : Diagnosis: Last Documented On 1 12:07PM By Karuna Chase ; [facility], [facility] Refresh Contacts Drops Solution 06/20/2020 Provider: Diagnosis: Last Documented On 1 12:11PM By Karuna Chase ; [facility], [facility] Clindamycin HCl 300 MG Oral Capsule 06/18/2020 Provi jaqui: Diagnosis: Last Documented On 9:08AM By Karuna Chase ; [facility], [facility] Acetaminophen 325 MG Oral Tablet 05/11/2020 Provider : Diagnosis: Last Documented On 1 9:09AM By Karuna Chase ; [facility], [facility] Ketoconazole 2% External Shampoo 04/24/2020 Provider : Diagnosis: Last Documented On 1 9:09AM By Karuna Chase ; [facility], [facility] Curity Alcohol Preps 70% Pad 04/16/2020 Provider: Diagnosis: Last Documented On 9:09AM By Karuna Chase ; [facility], [facility] Alogliptin Benzoate 25 MG Oral Tablet 04/16/2020 Pro vider: Diagnosis: Last Documented On 1 9:09AM By Karuna Chase ; [facility], [facility] Vitamin D3 25 MCG (1000 UT) Oral Tablet 04/06/2020 P rovider: Diagnosis: Last Documented On 1 9:09AM By Karuna Chase ; [facility], [facility] Lantus SoloStar 100 UNIT/ML Subcutaneous Solutio n Pen-injector 04/06/2020 Provider: Diagnosis: Last Documented On 1 9:09AM By Karuna Chase ; [facility], [facility] Meloxicam 15 MG Oral Tablet 04/04/2020 Provider: Diagnosis: Last Documented On 1 9:09AM By Karuna Chase ; [facility], [facility] glipiZIDE 10 MG Oral Tablet 04/04/2020 Provider: Diagnosis: Last Documented On 1 9:09AM By Karuna Chase ; [facility], [facility] Ezetimibe 10 MG Oral Tablet 04/04/2020 Provider: Diagnosis: Last Documented On 1 9:09AM By Karuna Chase ; [facility], [facility] amLODIPine Besylate 2.5 MG Oral Tablet 04/04/2020 Pr ovider: Diagnosis: Last Documented On 1 9:09AM By Karuna Chase ; [facility], [facility] Past Medications on file Bactrim DS 800-160MG Oral Tablet 06/23/2018 - 07/04/19 19 Provider: Aaron Tanner DPM Diagnosis: twice a day Last Documented On 9 12:06PM By Radha Hunter ; [facility], [facility] Keflex 500 MG OR CAPS 06/10/2018 - 06/13/2018 Provider : Sav Torres MD Diagnosis: Last Documented On 9 12:22PM By Jenna Boateng ; [facility], [facility] Elizabeth 7.5-325 MG OR TABS 06/09/2018 - 06/14/2018 Provi jaqui: Sav Torres MD Diagnosis: Last Documented On 9 1:46PM By Rehana Morales ; [facility], [facility] Elizabeth 7.5-325MG Oral Tablet 04/08/2018 - 04/15/2018 Pr ovider: Aaron Tanner DPM Diagnosis: 1-2 po q 4-6h prn pain (surgery 04/03/18) Last Documented On 9 10:16AM By Radha Hunter ; [facility], [facility] Elizabeth 7.5-325MG Oral Tablet 04/02/2018 - 04/09/2018 Pr ovider: Aaron Tanner DPM Diagnosis: 1-2 po q 4-6h prn pain (surgery 04/03/18) Last Documented On 9 9:50AM By Loly Muhammad ; [facility], [facility] Medications Administered Includes: Administered Medications from this encounter No Administered Medications Recorded Vital Signs Includes: Vital Signs from this encounter Vital Name 06/27/2018 08:29A Blood Pressure Sitting R 126/71 Pulse Rate-Sitting (bpm) 76 Height (in) 72 Weight (lb) 215 Body Mass Index (kg/m2) 29.2 Body Surface Area (m2) 2.2 Note: jem Last Documented: On 06/27/2018 8:31AM ; [facility], [facility] Results Includes: Results discussed during this encounter No Results Recorded For Specified Dates History of Present Illness Includes: History of Present Illness from this encounter PEDRO No is a 58 year old male. - Medication list reviewed with patient. This patient is here for reevaluation of his third toe paronychia on the right side. We've had him on antibiotics. He's been soaking and taking care of this. He is here for follow-up examination. He denies systemic signs of infection. He denies nausea, vomiting, fever, chills. Social History Description Last Updated Alcohol use 06/20/2020 Last Documented On 9 8:29AM ; [facility] No tobacco use 01/21/2018 Last Documented On 9 8:29AM ; [facility] Smoking status : Former smoker 8 Last Documented On 9 8:29AM ; [facility] No recent change in diet 01/21/2018 Last Documented On 9 8:29AM ; [facility] Not a current smoker 01/21/2018 Last Documented On 9 8:29AM ; [facility] Not using drugs 01/21/2018 Last Documented On 9 8:29AM ; [facility] Procedures and Surgical History Includes: Procedures from this encounter Procedures Code Diagnosis Performing Provider Service L ocation Service Date Clinical summary provided to patient Last Documented On 9 8:29AM ; [facility] Medical History Includes: Medical History addressed during this encounter Description Last Updated neck surgery ~toe surgery ~acid reflux 0 06/20/2020 Last Documented On 9 8:29AM ; [facility] Arthritic joint problems 01/21/2018 Last Documented On 9 8:29AM ; [facility] History of diabetes mellitus 01/21/2018 Last Documented On 9 8:29AM ; [facility] Intermittent hypertension 01/21/2018 Last Documented On 9 8:29AM ; [facility] Family History Includes: Family History addressed during this encounter Description Last Updated Fraternal history of diabetes mellitus 0 06/23/2018 Last Documented On 9 8:29AM ; [facility] Maternal history of diabetes mellitus Last Documented On 9 8:29AM ; [facility] Family history of diabetes mellitus 12/31 Last Documented On 9 8:29AM ; [facility] Review of Systems Includes: Review [...] Active Last Documented On 1 10:04AM ; [facility] Encounters Encounter Provider Location Date Check-In Time Check- Out Time Diagnosis Follow Up Aaron Tanner DPM [facility] 9 8:09AM 8:46AM Insurance Includes: Active Insurance Policies Plan Name Member ID Group # Subscriber Relationship Effect porfirio Dates - [facility] [id number] Cristino No Self Clinical Notes Includes: Clinical Notes from this encounter No Clinical Notes Recorded
--- OUTSIDE RECORDS SUMMARY | 2024-07-14 06:48 | XMS_ITS | Encounter Summary ---
Author Name [facility] [place] Organization [facility] [place] Address [address] [place] [id number] Care Team Providers Care Sound Effects Manager Name Role Phone GODFREY SALAS Primary Care Provider Erikaa MARTHA Luis Primary Care Provider Unavailabl e [...] PART A May 30, 2024 PART A [id number] WIGGLESWO RTH,STEWA RT PATIENT MEDICARE (WNR) MEDICARE (M) PART B May 30, 2024 PART B [id number] [id number] WIGGLESWO RTH,STEWA RT PATIENT [facility] 2017 SELEC T RETIR ED May 16, 2018 SELECT RETIRED [id number] [phone] WIGGLESWO RTH,STEWA RT PATIENT [facility] 2017 PRIME GROUP A Apr 01, 2017 DODA [id number] WIGGLESWO RTH,STEWA RT PATIENT [facility] 2024 PRIME RETIR ED Apr 01, 2024 PRIME RETIRED [id number] [phone] WIGGLESWO RTHAMY RT PATIENT Selected Encounter This section includes the information on record at [place] for the Encounter. Date/Time Encounter Type Encounter Description Reason Provider Source Jan 14, 2024 08:30 AM INTRM OPH EXAM EST PATIENT OPHTHALMOLOGY ICD-10-CM H40.003 Preglaucoma, unspecified, bilateral KATHERIN VELASQUEZ IHE Encounter Template Text not used by [place] Assessments - Encounter Diagnoses This section includes the primary and secondary diagnoses documented for the Encounter. Date/Time Primary/Secondary Diagnosis Diagnosis Name Provider Source Jan 14, 2024 10:05 AM PRIMARY Preglaucoma, unspecified, bilateral JOSE TANG-[place] [facility] Jan 14, 2024 10:05 AM SECONDARY Age-related nuclear cataract, bilateral JOSE TANG[place] [facility] Jan 14, 2024 10:05 AM SECONDARY Preglaucoma, unspecified, right eye JOSE TANG-[place] [facility] Jan 14, 2024 10:05 AM SECONDARY Primary open-angle glaucoma, left eye, mild stage JOSE TANG-CD [place] [facility] Jan 14, 2024 10:05 AM SECONDARY Unspecified macular degeneration JOSE TANG-[place] [facility] Plan of Treatment: Future Appointments (+ 6 months) and Future Tests (+/- 45 days) The Plan of Treatment section includes future care activities for the patient from all [place] treatmentfacilities. This section includes future appointments and future orders which are active, pending or scheduled. Future Appointments This section includes appointments that were scheduled to occur 6 months from the date of the Encounter, up to a maximum of 20 appointments. The data comes from all [place] treatment facilities. Appointment Date/Time Appointment Type Appointme nt Facility Name Jan 27, 2024 01:00 PM AMBULATORY - [place]ICINE [place] [facility] Jan 29, 2024 03:00 PM AMBULATORY - MEDICINE [place] [facility] Feb 07, 2024 09:00 AM AMBULATORY - SURGERY [place] [facility] Feb 20, 2024 02:00 PM AMBULATORY - NONE [place] [facility] Feb 21, 2024 02:30 PM AMBULATORY - MEDICINE [place] [facility] Mar 16, 2024 10:30 AM AM[place]ATORY - NONE [place] [facility] Mar 23, 2024 10:00 AM [facility] [place] [facility] Apr 08, 2024 08:15 AM AMBULATORY - MEDICINE [place] [facility] Apr 16, 2024 01:30 PM AM[place]ULATORY - NONE [place] [facility] Apr 16, 2024 02:15 PM AM[place]ATORY - NONE [place] [facility] May 05, 2024 09:40 AM AMBULATORY - SURGERY [place] [facility] Jun 03, 2024 10:00 AM AM[place]ATORY - NONE [place] [facility] Jun 05, 2024 09:30 AM AM[place]ORY - NONE [place] [facility] Jun 17, 2024 08:00 AM [facility] [place] [facility] Jun 17, 2024 09:00 [facility] Jun 25, 2024 08:00 AM [facility] [place] [facility] Jun 26, 2024 08:20 AM AMBULATORY - SURGERY [place] [facility] Jun 29, 2024 01:30 PM [facility] Lab Results: +/- 30 days of the [...] Type Comment Jan 14, 2024 10:06 AM [facility] PANEL 1 PLASMA Specimen Type: PLASMA Comment: [...] Dec 27, 2023 09:21 AM Reporting Lab: [address] [id number] Performing Lab: [address] [id number] CREATININE 1.34 mg/dL H 0.72-1.25 UREA NITROGEN 26 mg/dL H 9-25 GLUCOSE 156 mg/dL H 74-100 SODIUM 137 mmol/L 136-145 POTASSIUM 4.9 mmol/L 3.5-5.1 CHLORIDE 104 mmol/L 98-107 CO2 25 mmol/L 22-29 CALCIUM 9.7 mg/dL 8.4-10.2 ANION GAP 8 meq/L 3-19 eGFR (CKD-EPI) 59 Dec 26, 2023 09:25 AM [facility] PANEL 1 PLASMA Specimen Type: PLASM [...] Ordering Provider: PHAM SHORT Report Released Date/Time: Nov 29, 2023 02:04 PM Reporting Lab: [address] [id number] Performing Lab: [address] [address] CREATININE 1.55 mg/dL H 0.72-1.25 UREA NITROGEN 26 mg/dL H 9-25 GLUCOSE 270 mg/dL H 74-100 SODIUM 135 mmol/L L 136-145 POTASSIUM 4.7 mmol/L 3.5-5.1 CHLORIDE 100 mmol/L 98-107 CO2 26 mmol/L 22-29 CALCIUM 9.7 mg/dL 8.4-10.2 ANION GAP 9 meq/L 3-19 eGFR (CKD-EPI) 50 Encounter Notes: All associated encounter notes This section contains the clinical notes associated to the Encounter. Date/Time Encounter Note(s) Provider Source Jan 14, 2024 09:59 AM OPHTHALMOLOGY RESI DENT NOTE: LOCAL TITLE: OPHTHALMOLOGY CLINIC PHYSICIAN NOTE STANDARD TITLE: OPHTHALMOLOGY RESIDENT NOTE DATE OF NOTE: JAN 14, 2024@09:59 ENTRY DATE: JAN 14, 2024@10:00:39 AUTHOR: JOSE TANG EXP COSIGNER: KATHERIN VELASQUEZ URGENCY: STATUS: COMPLETED Please see scanned note for details of this examination. Education on instillation of drops provided. I have seen and discussed the patient with Dr. Velasquez and they agree with the assessment and plan. Date VA:OD ^ VA:OS IOP Notes 01/14/24 20-1 ^ 20-1 L'prost 07/16/23 25-1/ -- ^ 25 / -- 07/03/23 20-/ -- ^ 25-/ -- 01/0902/19/23 25+2/ -- ^ 20+/ -- 03/16 Sub-specialty Specific Hx: IOP pre-treatment = 13 17 Goal = </= mid-teens Pach = 552 554 Gonio = open OU (post dilation) Last VF = 11/2022 Last RNFL=07/2023 O-Meds: Lprost OU Surg/laser: questionable hx of SLT 2016 OS at [place] Other: mother with glaucoma Right Eye: # glaucoma suspect vs mild POAG -HVF today full, MD -0.76 and stable - Last RNFL stable 07/2023. - IOP 14 on Lprost >CPM # Age related NS cataract - Not VS. >Observe, may be good phaco MIGS candidate when ready # Dry AMD >Retina next month as scheduled Left Eye: # glaucoma suspect vs mild POAG -HVF today with nasal step, MD -3.81 and stable, but high fixation losses () - Last RNFL stable 07/2023. - IOP 16 on Lprost >CPM # Age related NS cataract - Not VS. >Observe, may be good phaco MIGS candidate when ready # Dry AMD >Retina next month as scheduled Plan: CPM F/U: 6 months glaucoma with RNFL * In VA column= without correction * In IOP column= didn't take most recent dose, or otherwise non-adherent In A/P= Not Addressed at this visit /amando/ JOSE TANG Ophthalmology Resident Signed: 01/14/2024 10:05 /amando/ KATHERIN VELASQUEZ ATTENDING PHYSICIAN Cosigned: 01/14/2024 10:13 JOSE TANG-D [facility] Jan 14, 2024 08:59 AM SURGERY SCANNED NO TE: LOCAL TITLE: OPHTHALMOLOGY SCANNING NOTE STANDARD TITLE: SURGERY SCANNED NOTE DATE OF NOTE: JAN 14, 2024@08:59 ENTRY DATE: JAN 15, 2024@08:59:58 AUTHOR: UNIQUE MARIE EXP COSIGNER: URGENCY: STATUS: COMPLETED The scanned image may be viewed in [employer]. // UNIQUE MARIE FRAME NAILER Signed: 01/15/2024 09:00 UNIQUE MARIE-D [facility] Jan 14, 2024 08:52 AM OPHTHALMOLOGY NOTE : LOCAL TITLE: OPHTHALMOLOGY NURSE/TECH CLINIC NOTE STANDARD TITLE: OPHTHALMOLOGY NOTE DATE OF NOTE: JAN 14, 2024@08:52 ENTRY DATE: JAN 14, 2024@08:52:47 AUTHOR: RUTHANN BECKHAM EXP COSIGNER: URGENCY: STATUS: COMPLETED OPHTHALMOLOGY NURSE/TECH CLINIC NOTE Has ADDENDA Date VA:OD ^ VA:OS IOP Notes 01/14/24 20-1 ^ 20-1 07/16/23 25-1/ -- ^ 25 / -- 07/03/23 20-/ -- ^ 25-/ -- 01/0902/19/23 25+2/ -- ^ 20+/ -- 03/16 Sub-specialty Specific Hx: IOP pre-treatment = 13 17 Goal = </= mid-teens Pach = 552 554 Gonio = open OU (post dilation) Last VF = 11/2022 Last RNFL=07/2023 O-Meds: Lprost OU Surg/laser: questionable hx of SLT 2016 OS at [place] Other: mother with glaucoma Right Eye: 1. Dry AMD - No fluid today. Observe. 2. glaucoma suspect - RNFL stable 07/2023. - IOP 12 on Lprost 3. Age related NS cataract - Not VS. Observe Left Eye: 1. Dry AMD - No fluid today. Observe. 2. glaucoma suspect (? hx of SLT) - RNFL stable 07/2023. - IOP 14 on Lprost 3. Age related NS cataract - Not VS. Observe Plan: CPM F/U: 6 months glaucoma with HVF, same day as retina * In VA column= without correction * In IOP column= didn't take most recent dose, or otherwise non-adherent In A/P= Not Addressed at this visit /amando/ RUTHANN BECKHAM HEALTH ENERGY TRADING ANALYST OPHTHALMOLOGY Signed: 01/14/2024 08:57 01/14/2024 ADDENDUM STATUS: COMPLETED I evaluated Mr. Carter with the glaucoma team and agree with the assessment and plan as detailed in the scanned note. 12/21/22: In brief, a 62 yo glaucoma suspect here for evaluation. Followed in [facility] previously and on drops in remote past (maybe SLT as well), but none in years. Mother with OAG. Exam as described. VA 20/20 BE. IOP 13/17 with CCT 552/554. RNFL T<5%, avg 89; T/I<1%, avg 71; stable compared to prior. HVF (post-dilation) GHT wnl, MD -3.17 (total deviation); very early superior changes with increased TD, MD -5.85 (does have cataract/AMD). Gonio (dilated) open with 2+ NSC and CDR 0.6/0.75 with inf thinning LE. In sum, high risk suspect vs early OAG L>R. Notable early HVF changes with corresponding RNFL and exam thinning with slight IOP asymmetry. Discussed observation, med, vs SLT and wants to trial lprost. Return 2-3 months IOP check. 02/19/23: Doing well with the drops. IOP today 02/10. Exam stable. Return 5-6 months DFE/RNFL. 07/16/23: IOP 12/14 today on lprost. RNFL temporal thinning BE, avg 91, 75; stable. CPM. Return 5-6 months for HVF (try same day retina). 01/14/24 (today): IOP 14/16 on lprost. HVF GHT wnl, MD -0.76; NS, GHT onl, MD -3.81; different than prior report but still somewhat early change. Will CPM and phaco/MIGS when ready. Return 5-6 months DFE/RNFL/macula. Early OAG L>R CCT 552/554 Started lprost 12/22 with IOP 13/17 /es/ KATHERIN VELASQUEZ ATTENDING PHYSICIAN Signed: 01/14/2024 09:55 RUTHANN BECKHAM-[facility] Jan 14, 2024 08:52 AM SURGERY NURSING NO TE: LOCAL TITLE: SURGERY CLINIC INTAKE NOTE STANDARD TITLE: SURGERY NURSING NOTE DATE OF NOTE: JAN 14, 2024@08:52 ENTRY DATE: JAN 14, 2024@08:52:21 AUTHOR: RUTHANN BECKHAM EXP COSIGNER: URGENCY: STATUS: COMPLETED The patient was given a list of his/her medications, instructed to review and discuss any changes or problems with their provider. Patient advised to carry a list of current medications and any allergies with them in the event of emergency situations. Allergies: local and remote VANCOMYCIN, GABAPENTIN, PREGABALIN, SIMVASTATIN, ROSUVASTATIN FACILITY ALLERGY/ADR -------- 581^DEBI [facility]^[phone] VANCOMYCIN Medication Reconciliation MRR1 - Med Reconciliation INCLUDED IN THIS LIST: Alphabetical list of active outpatient prescriptions dispensed from this [place] (local) and dispensed from another [place] or [facility] facility (remote) as well as inpatient orders (local pending and active), local clinic medications, locally documented non-VA medications, and local prescriptions that have or been discontinued in the past 90 days. Non-VA Meds Last Documented On: August 20, 2023 NOTE The display of VA prescriptions dispensed from another [place] or [facility] facility (remote) is limited to active outpatient prescription entries matched to National Drug File at the originating site and may not include some items such as investigational drugs, compounds, etc. NOT INCLUDED IN THIS LIST: Medications self-entered by the patient into personal health records (i.e. [employer]) are NOT included in this list. Non-VA medications documented outside this [place], remote inpatient orders (regardless of status) and remote clinic medications are NOT included in this list. The patient and provider must always discuss medications the patient is taking, regardless of where the medication was dispensed or obtained. OUTPT ACETAMINOPHEN 325MG TAB (Status = Active) TAKE TWO TABLETS BY MOUTH TWICE A DAY NEEDED FOR PAIN - DO NOT TAKE MORE THAN 12 TABLETS PER DAY Rx# [id number] Last Released: 11/26/23 Qty/Days Supply: Rx Expiration Date: 07/28/24 Refills Remainin OUTPT ARTIFICIAL TEARS POLYVINYL ALCOHOL (Status = Discontinued) PUT 1 DROP IN EYE(S) FOUR TIMES A DAY NEEDED FOR DRY EYES Rx# [id number] Last Released: 12/25/22 Qty/Days Supply: Rx Expiration Date: 12/22/23 Refills Remainin Non-VA ASCORBIC ACID 500MG TAB TAKE TWO TABLETS BY MOUTH DAILY OUTPT ASPIRIN 81MG EC TAB (Status = Active) TAKE ONE TABLET BY MOUTH DAILY FOR HEART Rx# [id number] Last Released: 11/01/23 Qty/Days Supply: Rx Expiration Date: 02/14/24 Refills Remainin Indication: FOR HEART Non-VA CENTRUM SILVER TABLET TAKE ONE TABLET BY MOUTH DAILY OUTPT CHOLECALCIF 25MCG (D3-1,000UNIT) TAB (Status = Discontinued) TAKE ONE TABLET BY MOUTH DAILY FOR VITAMIN D SUPPLEMENT Rx# [id number] Last Released: 10/25/23 Qty/Days Supply: Rx Expiration Date: 01/09/24 Refills Remainin OUTPT CHOLECALCIF 25MCG (D3-1,000UNIT) TAB (Status = Active) TAKE ONE TABLET BY MOUTH DAILY FOR VITAMIN D SUPPLEMENT Rx# [id number] Last Released: 12/26/23 Qty/Days Supply: Rx Expiration Date: 12/03/24 Refills Remainin OUTPT CLOPIDOGREL BISULFATE 75MG TAB (Status = Active) TAKE ONE TABLET BY MOUTH DAILY TO THIN BLOOD Rx# [id number] Last Released: 10/25/23 Qty/Days Supply: Rx Expiration Date: 02/14/24 Refills Remainin Indication: TO THIN BLOOD OUTPT DEXTRAN 70/GLYCER 0.2%/HYPROMEL 0.3% OPH (Status = Discontinued) PUT 1 DROP IN EYE(S) FOUR TIMES A DAY NEEDED FOR DRY EYES Rx# [id number] Last Released: 02/25/23 Qty/Days Supply: 45 Rx Expiration Date: 02/20/24 Refills Remainin Indication: FOR DRY EYES OUTPT EMPAGLIFLOZIN 10MG TAB (Status = Active) TAKE ONE TABLET BY MOUTH EVERY MORNING FOR HEART FAILURE Rx# [id number] Last Released: 09/30/23 Qty/Days Supply: Rx Expiration Date: 09/25/24 Refills Remainin Indication: FOR HEART FAILURE OUTPT EZETIMIBE 10MG TAB (Status = Active) TAKE ONE TABLET BY MOUTH EVERY EVENING FOR CHOLESTEROL Rx# [id number] Last Released: 09/27/23 Qty/Days Supply: Rx Expiration Date: 09/25/24 Refills Remainin Indication: FOR CHOLESTEROL OUTPT FLUTICASONE PROP 50MCG 120D NASAL INHL (Status = Discontinued) USE 1 SPRAY IN EACH NOSTRIL DAILY FOR NASAL ALLERGY Rx# [id number] Last Released: Qt Supply: Rx Expiration Date: 10/22/24 Refills Remainin OUTPT FLUTICASONE PROP 50MCG 120D NASAL INHL (Status = Active) USE 1 SPRAY IN EACH NOSTRIL DAILY FOR NASAL ALLERGY Rx# [id number] Last Released: 11/14/23 Qty/Days Supply: Rx Expiration Date: 11/11/24 Refills Remainin OUTPT GLIPIZIDE 10MG TAB (Status = Discontinued) TAKE TWO TABLETS BY MOUTH TWICE A DAY FOR DIABETES Rx# [id number] Last Released: 10/01/23 Qty/Days Supply: Rx Expiration Date: 12/19/23 Refills Remainin OUTPT GLIPIZIDE 10MG TAB (Status = Active) TAKE TWO TABLETS BY MOUTH TWICE A DAY FOR DIABETES Rx# [id number] Last Released: 12/13/23 Qty/Days Supply: Rx Expiration Date: 12/10/24 Refills Remainin OUTPT INSULIN,GLARGINE-YFGN 100UNIT/ML *PEN* (Status = Active) INJECT 17 UNITS UNDER THE SKIN DAILY FOR BLOOD SUGAR -DISCARD PEN AFTER 28 DAYS OF USE Rx# [id number] Last Released: 12/30/23 Qty/Days Supply: Rx Expiration Date: 10/15/24 Refills Remainin Indication: FOR BLOOD SUGAR OUTPT KETOTIFEN 0.025%(EQV TO 0.035%) OPH SOLN (Status = Discontinued) PUT 1 DROP IN BOTH EYES TWICE A DAY FOR EYE IRRITATION Rx# [id number] Last Released: 12/25/22 Qty/Days Supply: Rx Expiration Date: 12/22/23 Refills Remainin Indication: FOR EYE IRRITATION OUTPT LATANOPROST 0.005% OPH SOLN (Status = Discontinued) PUT 1 DROP IN BOTH EYES AT BEDTIME FOR GLAUCOMA Rx# [id number] Last Released: 11/13/23 Qty/Days Supply: Rx Expiration Date: 12/22/23 Refills Remainin Indication: FOR GLAUCOMA OUTPT LATANOPROST 0.005% OPH SOLN (Status = Active) PUT 1 DROP IN BOTH EYES AT BEDTIME FOR GLAUCOMA Rx# [id number] Last Released: 11/18/23 Qty/Days Supply: Rx Expiration Date: 02/16/24 Refills Remainin Indication: FOR GLAUCOMA OUTPT LIDOCAINE 5% OINT (Status = Discontinued) APPLY SMALL AMOUNT TO AFFECTED AREA DAILY FOR PAIN Rx# [id number] Last Released: 01/11/23 Qty/Days Supply: 70/30 Rx Expiration Date: 01/09/24 Refills Remainin Non-VA MAGNESIUM OXIDE 420MG TAB TAKE TWO TABLETS BY MOUTH DAILY OUTPT METFORMIN HCL 500MG 24HR SA TAB (Status = ) TAKE TWO TABLETS BY MOUTH TWICE A DAY FOR DIABETES Rx# [id number] Last Released: 10/23/23 Qty/Days Supply: 360 Rx Expiration Date: 01/09/24 Refills Remainin OUTPT METOPROLOL SUCCINATE 100MG SA TAB (Status = Active) TAKE ONE AND ONE-HALF TABLETS BY MOUTH DAILY FOR HEART Rx# [id number] Last Released: 12/19/23 Qty/Days Supply: 135/90 Rx Expiration Date: 09/25/24 Refills Remainin Indication: FOR HEART OUTPT MULTIVIT/OPHTH AREDS2/LUTE/ZEAX CAP/TAB (Status = ) TAKE 1 SOFTGEL BY MOUTH TWICE A DAY AFTER MEALS FOR EYE HEALTH Rx# [id number] Last Released: 12/05/23 Qty/Days Supply: 120/60 Rx Expiration Date: 01/09/24 Refills Remainin OUTPT MUPIROCIN 2% OINT (Status = Discontinued) APPLY SMALL AMOUNT TO AFFECTED AREA TWICE A DAY FOR SKIN INFECTION Rx# [id number] Last Released: 04/11/23 Qty/Days Supply: 22/30 Rx Expiration Date: 04/11/24 Refills Remainin Indication: FOR SKIN INFECTION OUTPT NITROGLYCERIN 0.3MG SL TAB (Status = Discontinued) DISSOLVE ONE TABLET UNDER THE TONGUE EVERY 5 MINUTES UP TO 3 DOSES FOR CHEST PAIN -IF NO RELIEF CALL 911 Rx# [id number] Last Released: 02/19/23 Qty/Days Supply: 100/90 Rx Expiration Date: 02/14/24 Refills Remainin Indication: FOR CHEST PAIN OUTPT OMEPRAZOLE 20MG EC CAP (Status = ) TAKE ONE CAPSULE BY MOUTH TWICE A DAY FOR STOMACH. TAKE ON AN EMPTY STOMACH Rx# [id number] Last Released: 10/23/23 Qty/Days Supply: 180/ Rx Expiration Date: 01/09/24 Refills Remainin OUTPT ROSUVASTATIN CA 40MG TAB (Status = Active) TAKE ONE TABLET BY MOUTH DAILY FOR CHOLESTEROL Rx# [id number] Last Released: 09/30/23 Qty/Days Supply: Rx Expiration Date: 09/25/24 Refills Remainin Indication: FOR CHOLESTEROL OUTPT SACUBITRIL 49MG/VALSARTAN 51MG TAB (Status = Discontinued) TAKE 1 TABLET BY MOUTH TWICE A DAY FOR HEART FAILURE - THIS IS A DOSE INCREASE. START THIS INCREASED DOSE ON 07/31/2023 Rx# [id number] Last Released: 10/09/23 Qty/Days Supply: 180 Rx Expiration Date: 07/16/24 Refills Remainin Indication: FOR HEART FAILURE OUTPT SACUBITRIL 97MG/VALSARTAN 103MG TAB (Status = Active) TAKE 1 TABLET BY MOUTH TWICE A DAY FOR HEART FAILURE DOSE INCREASE Rx# [id number] Last Released: 12/06/23 Qty/Days Supply: 18090 Rx Expiration Date: 02/27/24 Refills Remainin Indication: FOR HEART FAILURE OUTPT SPIRONOLACTONE 25MG TAB (Status = Active) TAKE ONE TABLET BY MOUTH DAILY FOR HEART FAILURE Rx# [id number] Last Released: 12/17/23 Qty/Days Supply: 90 Rx Expiration Date: 09/25/24 Refills Remainin Indication: FOR HEART FAILURE SUPPLIES OUTPT ACCU-CHEK GUIDE (GLUCOSE) TEST STRIP (Status = ) USE 1 STRIP TO TEST BLOOD SUGAR DIRECTED Rx# [id number] Last Released: 12/16/23 Qty/Days Supply: 200/90 Rx Expiration Date: 01/09/24 Refills Remainin OUTPT NEEDLE,PEN 32G,4MM (Status = Discontinued) USE 1 NEEDLE UNDER THE SKIN EVERY DAY Rx# [id number] Last Released: 01/10/23 Qty/Days Supply: 100/90 Rx Expiration Date: 01/09/24 Refills Remainin /amando/ RUTHANN BECKHAM HEALTH ENERGY TRADING ANALYST OPHTHALMOLOGY Signed: 01/14/2024 08:52 RUTHANN BECKHAM-[facility]
--- OUTSIDE RECORDS SUMMARY | 2024-07-14 06:48 | XMS_ITS | Encounter Summary ---
Author Name [facility] [facility] [place] [facility] [place] Address [address] [place] [address] Care Team Providers Care Document Clerk Name Role Phone JOSUE JOOENEDINA Primary Care [...] PART A May 30, 2024 PART A [id number] [id number] WIGGLESWO RTH,STEWA RT PATIENT MEDICARE (WNR) MEDICARE (M) PART B May 30, 2024 PART B [id number] UD24 WIGGLESWO RTH,STEWA RT PATIENT [facility] 2017 SELEC T RETIR ED May 16, 2018 [facility] [id number] WIGGLESWO RTH,STEWA RT PATIENT [facility] 2017 [employer]IME [employer] A Apr 01, 2017 DODA [id number] WIGGLESWO RTH,STEWA RT PATIENT [facility] 2024 PRIME RETIR ED Apr 01, 2024 PR[facility] RETIRED [id number] [phone] JAZMINE RTHAMY RT PATIENT Selected Encounter This section includes the information on record at [place] for the Encounter. Date/Time Encounter Type Encounter Description Reason Pro vider Source Jun 29, 2024 08:57 AM Outpatient Encounter ADMIN PAT ACTIVTIES (MASNONCT) IHE Encounter Template Text not used by [place] Plan of Treatment: Future Appointments (+ 6 months) and Future Tests (+/- 45 days) The Plan of Treatment section includes future care activities for the patient from all [place] treatmentfacilities. This section includes future appointments and future orders which are active, pending or scheduled. Future Appointments This section includes appointments that were scheduled to occur 6 months from the date of the Encounter, up to a maximum of 20 appointments. The data comes from all [facility]. Appointment Date/Time Appointment Type Appointme nt Facility Name Jul 15, 2024 09:00 AM AMBULATORY - NONE [place] N-CDD [facility] Jul 27, 2024 08:00 AM AMBULATORY - [place]GERY [place] [facility] Jul 29, 2024 01:00 PM AMBULATORY - MEDICINE [place] [facility] August 03, 2024 07:00 AM AM[place]ORY - NONE [place] [facility] Sep 23, 2024 10:00 AM AMBULATORY - MEDICINE [place] [facility] Nov 03, 2024 09:40 AM AMBULATORY - SURGERY [place] [facility] Active, Pending, and Scheduled Orders This section includes a listing of several types of active, pending, and scheduled orders, including clinic medications orders, diagnostic test orders, procedure orders and consult orders; where the start date of the order is 45 days before the date of the Encounter or 45 days after the date of theEncounter. The data comes from all [facility]. Test Date/Time Test Type Test Details Facility Name Jun 26, 2024 09:07 AM Consult Order PAIN CLINI C ANESTHESIOLOGY/PAIN CD OUTPATIENT Cons Wheat [facility] Jul 15, 2024 12:00 AM Imaging - Ultrasou nd Order FNA BX W/ ULTRASND GDN,1ST LESION [facility] Radiology Reports: +/- 30 days of [...] the Encounter. The data comes from all [place] treatment facilities. Date/Time Radiology Report Provider Source Jun 29, 2024 12:58 PM U/S THYROID: KATE CARTER [id number] -1960 M Exm Date: JUN 29, 2024@12:58 Req Phys: MARTHA HENLEY Loc: X-RAY/MRI/DOROTHEA/NC (Req'g Loc Img Loc: ULTRASOUND Service: [place] [address] (Case [id number] COMPLETE) U/S THYROID (US Detailed) CPT:36834 Reason for Study: SEE CLINICAL HISTORY Clinical History: REASON FOR EXAM:Nodule/Lesion follow up PERTINENT PATIENT HISTORY: PROVIDER ExtPager# Report Status: Verified Date Reported: JUN 30, 2024 Date Verified: JUN 30, 2024 Electric Motorman E-Sig: Report: EXAMINATION: THYROID ULTRASOUND CLINICAL INDICATIONS: [...] Interpreting Staff: CHIN CASTILLO, Radiologist Verified by junior linux systems administrator for CHIN CASTILLO /CHIN LEES-CDOrville [facility] Jun 17, 2024 08:36 AM MRI C SPINE W/O CO NTRAST: KATE CARTER [id number] -1960 M Exm Date: JUN 17, 2024@08:36 Req Phys: MARTHA HENLEY Pat Loc: XIOMY PACT JACI 1-2 (Req'g Lo Img Loc: [facility] Service: Unknown [place] [id number] (Case [id number] COMPLETE) MRI C SPINE W/O CONTRAST (MRI Detailed) CPT:94000 Reason for Study: SEE CLINICAL HISTORY Clinical History: STATUS OF PLAIN FILMS:Done, exam date/impression above. MRI Screening (Required): IMPLANTED DEVICE DOCUMENTATION 03/11/2024 09:29 Local Title: IMPLANTED CARDIAC DEVICE Standard Title: CLINICAL WARNING Patient has an Implanted Cardiac Device. Cardiac Device Type: BIV ICD Dental Manager: ST SIMON Device details: Generator - [employer]Ardon, model [id number], SN [id number]. RA lead - [employer]don, model [id number], SN [id number]. RV lead - [employer]don, model 7122Q, SN [id number]. LV - [employer]Ardon, model 1458QL, SN [id number]. Parameters: RA - threshold - 0.25v@0.5ms, 460 ohms, sensing - >5mV RV - threshold - 0.25v@0.5ms, 640 ohms, sensing - >12mV LV - threshold - 1.25v@0.5ms, 700 ohms. DFT's - were not assessed. Shock coil impedance - 73 ohms. Implant 03/10/2024 Dr. Mckinney Signed by: /amando/ RUTHANN BARONE RN 03/11/2024 09:32 Does the have any Cardiac Implants? ICD Does the have any implanted stimulators? None Does the have cochlear implants? No Does the have Cerebral aneurysm clip(s)? No Does the have any shrapnel? No If yes, where in your body? Please list other implants not listed above: MRI table has a weight limit of 551 lbs. 's Weight: *198 lb [89.81 kg] (03/16/2024 10:02) Is this patient claustrophobic?: No REASON FOR EXAM: OTHER (provide detailed justification for your request) PERTINENT PATIENT HISTORY: Cervical radiculopathy Risk factors for GADOLINIUM NEPHROGENIC SYSTEMIC SCLEROSIS: Report Status: Verified Date Reported: JUN 17, 2024 Date Verified: JUN 17, 2024 Electric Motorman E-Sig: Report: KATE CARTER 1960 EXAM: MRI [...] Staff: FATUMA GARCIA, Staff Physician Verified by junior linux systems administrator for FATUMA GARCIA /OCTAVIA GARCIA,FATUMA [facility] Encounter Notes: All associated encounter notes This section contains the clinical notes associated to the Encounter. Date/Time Encounter Note(s) Provider Source Jun 29, 2024 08:57 AM LETTERS: LOCAL TITLE: SPECIALTY CONTACT LETTER STANDARD TITLE: LETTERS DATE OF NOTE: JUN 29, 2024@08:57 ENTRY DATE: JUN 29, 2024@08:57:39 AUTHOR: SHAKILA THEODORE EXP COSIGNER: URGENCY: STATUS: COMPLETED [facility] [address] [place] [address] Mr. KATE PAVON [address] [place], [place] [address] JUN 29, 2024 Dear KATE CARTER, We have been unable to contact you by telephone to schedule an appointment in our Pain clinic. Your health and well-being are important to us. Please call us at or . Select Option #2 and then #3. We look forward to hearing from you soon. Sincerely yours, Pain [facility] SHAKILA THEODORE-CDD [facility]
--- OUTSIDE RECORDS SUMMARY | 2024-07-14 06:49 | XMS_ITS | Encounter Summary ---
Author Name [facility] [facility] [place] [facility] [place] Address [address] [place] [address] Care Team Providers Care Traffic Court Referee Name Role Phone JOSUE JOOENEDINA Primary Care [...] PART A May 30, 2024 PART A [id number] UD24 WIGGLESWO RTH,STEWA RT PATIENT MEDICARE (WNR) MEDICARE (M) PART B May 30, 2024 PART B [id number] UD24 WIGGLESWO RTH,STEWA RT PATIENT [facility] 2017 SELEC T RETIR ED May 16, 2018 [facility] [id number] WIGGLESWO RTH,STEWA RT PATIENT [facility] 2018 [employer] A Apr 01, 2017 DODA [id number] WIGGLESWO RTH,STEWA RT PATIENT [facility] 2024 PRIME RETIR ED Apr 01, 2024 [facility] RETIRED [id number] [phone] JAZMINE RTHAMY RT PATIENT Selected Encounter This section includes the information on record at [place] for the Encounter. Date/Time Encounter Type Encounter Description Reason Provider Source Jun 18, 2024 02:24 PM PH1 ASSMT&MGMT NQHP 5-10 TELEPHONE PRIMARY CARE ICD-10-CM Z71.9 Counseling, unspecified Nathan CORDOVA IHE Encounter Template Text not used by [place] Assessments - Encounter Diagnoses This section includes the primary and secondary diagnoses documented for the Encounter. Date/Time Primary/Secondary Diagnosis Diagnosis Name Provider Source Jun 18, 2024 02:24 PM PRIMARY Counseling, unspecified Nathan CORDOVA [facility] Plan of Treatment: Future Appointments (+ [...] 20 appointments. The data comes from all [place] treatment facilities. Appointment Date/Time Appointment Type Appointme nt Facility Name Jun 25, 2024 08:00 AM [facility] [place] [facility] Jun 26, 2024 08:20 AM AMBULATORY - SURGERY [place] [facility] Jun 29, 2024 01:30 PM AM[place]ULATORY - NONE [place] [facility] Jul 15, 2024 09:00 AM AMBULATORY - NONE [place] N-[facility] Jul 27, 2024 08:00 AM AM[facility]ULATORY - SURGERY [place] [facility] Jul 29, 2024 01:00 PM AMBULATORY - MEDICINE [place] [facility] August 03, 2024 07:00 AM AMBULATORY - NONE [place] [facility] Sep 23, 2024 10:00 AM AMBULATORY - MEDICINE [place] [facility] Nov 03, 2024 09:40 AM AMBULATORY - SURGERY [place] [facility] Active, Pending, and Scheduled Orders This section includes a listing of several types of active, pending, and scheduled orders, including clinic medications orders, diagnostic test orders, procedure orders and consult orders; where the start date of the order is 45 days before the date of the Encounter or 45 days after the date of theEncounter. The data comes from all [place] treatment facilities. Test Date/Time Test Type Test Details Facility Name Jun 26, 2024 09:07 AM Consult Order PAIN CLINI C ANESTHESIOLOGY/PAIN CD OUTPATIENT Cons [employer] Director [employer] [facility] Jul 15, 2024 12:00 AM Imaging - Ultrasou nd Order FNA BX W/ ULTRASND GDN,1ST LESION [facility] Social History: Smoking Status (Most current) and Tobacco Use (All prior to encounter date) This section includes the most current, and the historical, smoking and tobacco- related health factors from the [place] facility where the Encounter took place. Current Smoking Status This section includes the most current smoking, or tobacco-related health factor, from the [place] facility where the Encounter took place. Date/Time Current Smoking Status Comment Facil ity Mar 16, 2024 10:30 AM VA-TOBACCO NEVER U SED CIGARETTES [facility] Tobacco Use History This section includes a history of the smoking, or tobacco-related health factors, that were collected on or before the date of the Encounter. The data comes from the [place] facility where the Encounter took place. Date/Time Smoking Status/Tobacco Use Comment F acility Mar 16, 2024 10:30 AM VA-TOBACCO NEVER U SED OTHER TYPE [facility] August 15, 2023 08:00 AM VA-TOBACCO NEVER USED [facility] Jun 11, 2022 08:30 AM VA-TOBACCO NEVER USED [facility] May 11, 2021 08:00 AM VA-TOBACCO FORMER USER [facility] May 11, 2021 08:00 AM VA-TOBACCO QUIT 15 YRS OR MORE [facility] Apr 04, 2020 08:30 AM VA-TOBACCO FORMER USER [facility] Apr 04, 2020 08:30 AM VA-TOBACCO QUIT 15 YRS OR MORE [facility] Mar 18, 2019 12:56 PM VA-TOBACCO FORMER USER [facility] Mar 18, 2019 12:56 PM VA-TOBACCO QUIT 5 TO < 15 YRS [facility] Radiology Reports: +/- 30 days of [...] 2024 12:58 PM U/S THYROID: KATE CARTER [id number] -1960 M Exm Date: JUN 29, 2024@12:58 Req Phys: MARTHA HENLEY Pat Loc: X-RAY/MRI/DOROTHEA/NC (Req'g Loc Img Loc: ULTRASOUND Service: [place] [address] (Case [id number] COMPLETE) U/S THYROID (US Detailed) CPT:77813 Reason for Study: SEE CLINICAL HISTORY Clinical History: REASON FOR EXAM:Nodule/Lesion follow up PERTINENT PATIENT HISTORY: PROVIDER ExtPager# Report Status: Verified Date Reported: JUN 30, 2024 Date Verified: JUN 30, 2024 Merchant Seaman E-Sig: Report: EXAMINATION: THYROID ULTRASOUND CLINICAL INDICATIONS: [...] Interpreting Staff: CHIN CASTILLO, Radiologist Verified by senior accounts payable clerk for CHIN CASTILLO /CHIN LEES-CDOrville [facility] Jun 17, 2024 08:36 AM MRI C SPINE W/O CO NTRAST: KATE CARTER [id number] -1960 M Exm Date: JUN 17, 2024@08:36 Req Phys: HENLEY,MARTHA [place] Pat Loc: XIOMY PACT JACI 1-2 (Req'g Lo Img Loc: [facility] Service: Unknown [place] [id number] (Case [id number] COMPLETE) MRI C SPINE W/O CONTRAST (MRI Detailed) CPT:94543 Reason for Study: SEE CLINICAL HISTORY Clinical History: STATUS OF PLAIN FILMS:Done, exam date/impression above. MRI Screening (Required): IMPLANTED DEVICE DOCUMENTATION 03/11/2024 09:29 Local Title: IMPLANTED CARDIAC DEVICE Standard Title: CLINICAL WARNING Patient has an Implanted Cardiac Device. Cardiac Device Type: BIV ICD Training And Development Project Leader: ST SIMON Device details: Generator - [employer]don, model [id number], SN [id number]. RA lead - [employer], model [id number], SN [id number]. RV lead - [employer], model 7122Q, SN [id number]. LV - [employer]don, model 1458QL, SN [id number]. Parameters: RA - threshold - 0.25v@0.5ms, 460 ohms, sensing - >5mV RV - threshold - 0.25v@0.5ms, 640 ohms, sensing - >12mV LV - threshold - 1.25v@0.5ms, 700 ohms. DFT's - were not assessed. Shock coil impedance - 73 ohms. Implant 03/10/2024 Dr. Mckinney Signed by: /amando/ RUTHANN BARONE RN 03/11/2024 09:32 Does the [place] have any Cardiac Implants? ICD Does the [place] have any implanted stimulators? None Does the [place] have cochlear implants? No Does the [place] have Cerebral aneurysm clip(s)? No Does the have any shrapnel? No If yes, where in your body? Please list other implants not listed above: MRI table has a weight limit of 551 lbs. [place]'s Weight: *198 lb [89.81 kg] (03/16/2024 10:02) Is this patient claustrophobic?: No REASON FOR EXAM: OTHER (provide detailed justification for your request) PERTINENT PATIENT HISTORY: Cervical radiculopathy Risk factors for GADOLINIUM NEPHROGENIC SYSTEMIC SCLEROSIS: Report Status: Verified Date Reported: JUN 17, 2024 Date Verified: JUN 17, 2024 Merchant Seaman E-Sig: Report: KATE CARTER 1960 EXAM: MRI [...] FATUMA GARCIA, Staff Physician Verified by senior accounts payable clerk for FATUMA GARCIA /OCTAVIA GARCIA,FATUMA [facility] Encounter Notes: All associated encounter notes This section contains the clinical notes associated to the Encounter. Date/Time Encounter Note(s) Provider Source Jun 18, 2024 02:24 PM PRIMARY CARE E & M NOTE: LOCAL TITLE: PC CARE MANAGEMENT STANDARD TITLE: PRIMARY CARE E & M NOTE DATE OF NOTE: JUN 18, 2024@14:24 ENTRY DATE: JUN 18, 2024@14:24:06 AUTHOR: TORI CORDOVA EXP COSIGNER: URGENCY: STATUS: COMPLETED Contacted Mr. KATE CARTER regarding PCP recommendations: June 17 2024 PC chart review Please tell patient that neurosurgery responded per below In the absence of myelopathy and radiculopthy and if is experiencing neck pain only, there would be no surgical intervention needed. If would still like to discuss in person, let us know and we can schedule in NS clinic. Thank you. reports that he would still like to discuss his care with NS [place] states understanding. No further questions or concerns at this time. Agreeable to plan of care. [place] identified using two identifiers (name, last four). Spent 5 minutes on the call. /amando/ TORI CORDOVA Registered Nurse Signed: 06/18/2024 14:30 TORI CORDOVA [facility]
--- OUTSIDE RECORDS SUMMARY | 2024-07-14 06:49 | XMS_ITS | Encounter Summary ---
Author Name [facility] [place] Organization [place] Address [address] [place] [address] Care Team Providers Care Ship Rigger Apprentice Name Role Phone GODFREY SALAS Primary [...] PART A May 30, 2024 PART A [id number] [phone] [id number] WIGGLESWO RTH,STEWA RT PATIENT MEDICARE (WNR) MEDICARE (M) PART B May 30, 2024 PART B [id number] [id number] [id number] WIGGLESWO RTH,STEWA RT PATIENT [facility] 2017 SELEC T RETIR ED May 16, 2018 [facility] [id number] [phone] WIGGLESWO RTH,STEWA RT PATIENT [facility] 2017 [employer] A Apr 01, 2017 DODA [id number] WIGGLESWO RTH,STEWA RT PATIENT [facility] 2024 [facility] RETIR ED Apr 01, 2024 [facility] [id number] [phone] WIGGLESWO RTH,STEWA RT PATIENT Selected Encounter This section includes the information on record at [place] for the Encounter. Date/Time Encounter Type Encounter Description Reason Pro vider Source Mar 13, 2024 10:13 AM Outpatient Encounter AMBULATORY IHE Encounter Template Text [...] 10:30 AM [facility] [place] [facility] Mar 23, 2024 10:00 AM [facility] [facility] Apr 08, 2024 08:15 AM [facility] Apr 16, 2024 01:30 PM [facility] [place] [facility] Apr 16, 2024 02:15 PM [facility] [place] [facility] May 05, 2024 09:40 AM AMBULATORY - SURGERY [place] [facility] Jun 03, 2024 10:00 AM [facility] [place] [facility] Jun 05, 2024 09:30 AM [facility] [place] [facility] Jun 17, 2024 08:00 AM [facility] Jun 17, 2024 09:00 AM [facility] - [facility]ONE [place] [facility] Jun 25, 2024 08:00 AM [facility] Jun 26, 2024 08:20 AM [facility] - [facility]GERY [place] [facility] [facility] Jun 29, 2024 01:30 PM [facility]ONE [place] [facility] Jul 15, 2024 09:00 AM [facility] - NONE [place] [facility] Jul 27, 2024 08:00 AM [facility] - [facility]GERY [place] [facility] Jul 29, 2024 01:00 PM AM[facility]ULATORY - MEDICINE [place] [facility] August 03, 2024 07:00 AM AMBULATORY - NONE [facility] Lab Results: +/- 30 days of the encounter This section includes the Chemistry and Hematology Lab Results on record with [place] for the patient. Radiology Reports and Pathology Reports are provided separately, in subsequent sections. Lab Results This section contains the Chemistry/Hematology Results that were resulted 30 days before or 30 daysafter the date of the Encounter. Date/Time Source Result Type Result - Unit Interpretation Reference Range Specimen Type Comment Mar 23, 2024 09:13 AM [facility] HBSAB SERUM Specimen Type: SERUM Comment: [...] Mar 16, 2024 11:01 AM Reporting Lab: [address] [address] Performing Lab: [address] [address] HBSAB Nonreactive Nonreactive Mar 23, 2024 09:13 AM [facility] HBSAG S JOSE Specimen Type: SERUM Comment: [...] Mar 16, 2024 11:01 AM Reporting Lab: [address] [address] Performing Lab: [address] [address] HBSAG Nonreactive Nonreactive Mar 23, 2024 09:13 AM [facility] GLYCOHEMOGLOBIN BLOOD Specimen Type: BLOOD Comment: [place] guidelines for A1c interpretation: Glycemic control targets are based on Shared Decision Making between clinicians and patients. Criteria used to establish an A1c target recommendation can be found at https://www.[place].gov/qualityandpatientsafety/ and include the use of result accuracy [...] 8.73 and 9.27. Ref: https://ngsp.org/CAPdata.asp. The in-house [employer] D-100 analyzer has a historical CV <= 2%. Contact the laboratory for further performance characteristics of this assay. Ordering Provider: MARTHA HENLEY Report Released Date/Time: Mar 16, 2024 11:01 AM Reporting Lab: [address] [address] Performing Lab: [address] [address] GLYCOHEMOGLOBIN 8.2 H 4.4-6.4 Mar 23, 2024 09:13 AM [facility] PSA S JOSE Specimen Type: SERUM No comment entered. Ordering Provider: MARTHA HENLEY Report Released Date/Time: Mar 16, 2024 11:01 AM Reporting Lab: [address] [address] Performing Lab: [place] [phone] PSA 1.538 ng/mL 0-3.999 Mar 23, 2024 09:13 AM [facility] LIPID PROFILE PLASMA Specimen Type: PLASMA Comment: [...] Mar 16, 2024 11:01 AM Reporting Lab: [address] [address] Performing Lab: [address] [address] CHOLESTEROL 161 mg/dL 0-199 TRIGLYCERIDE 156 mg/dL H 0-149 HDL CHOLESTEROL 58 mg/dL 40-69 DIRECT LDL CHOL. 100 mg/dL 0-100 Mar 23, 2024 09:13 AM [facility] TSH PLASMA Specimen Type: PLASM A Comment: [...] Mar 16, 2024 11:01 AM Reporting Lab: [address] [address] Performing Lab: [address] [address] TSH 1.8877 m[IU]/mL 0.3500-4.9400 Mar 23, 2024 09:13 AM [facility] PANEL 5 PLASMA Specimen Type: PLASMA Comment: [...] Mar 16, 2024 11:01 AM Reporting Lab: [facility] [address] [place] [address] Performing Lab: [address] [address] CREATININE 1.34 mg/dL H 0.72-1.25 UREA NITROGEN [...] (CKD-EPI) 59 Mar 23, 2024 09:13 AM [facility] B12 VITAMIN PLASMA Specimen Type: PLASM A [...] Mar 16, 2024 11:01 AM Reporting Lab: [address] [address] Performing Lab: [address] [address] B12 VITAMIN 518 pg/mL 213-816 Mar 23, 2024 09:13 AM [facility] 25-OH VITAMIN D SERUM Specime n Type: [...] Mar 16, 2024 11:01 AM Reporting Lab: [address] [address] Performing Lab: [address] [address] 25-OH VITAMIN D 51.2 ng/mL H 20.0-50.0 Mar 23, 2024 09:13 AM [facility] CBC/PLT BLOOD Specimen Type: BLOOD No comment entered. Ordering Provider: MARTHA HENLEY Report Released Date/Time: Mar 16, 2024 11:01 AM Reporting Lab: [address] [address] Performing Lab: [place] [phone] WBC 6.5 10*3/uL 5.0-10.0 RBC 5.22 10*6/uL 4.6-6.2 HGB 14.3 g/dL 14.0-18.0 HCT 45.6 42.0-52.0 MCV 87.4 fL 80.0-94.0 MCH 27.4 pg 27.0-31.0 MCHC 31.4 g/dL L 32.0-36.0 PLT 180 10*3/uL 150-450 MPV 9.5 fL 9.0-13.1 RDW 15.6 11.0-16.0 NRBC 0.0 0.0-0.0 Mar 11, 2024 06:10 AM [facility] GLUCOSE-HAND MONITOR CAPILLARY Specime n Type: CAPILLARY Comment: Test performed by: [id number] Meter #: [id number] Ordering Provider: FELIBERTO MERINO Report Released Date/Time: Mar 11, 2024 06:27 AM Reporting Lab: [address] [address] Performing Lab: [address] [address] GLUCOSE-HAND MONITOR 170 mg/dL H Mar 10, 2024 08:59 PM [facility] GLUCOSE-HAND MONITOR CAPILLARY Specime n Type: CAPILLARY Comment: Test performed by: [id number] Meter #: [id number] Ordering Provider: FELIBERTO MERINO Report Released Date/Time: Mar 10, 2024 09:52 PM Reporting Lab: [address] [address] Performing Lab: [address] [address] GLUCOSE-HAND MONITOR 260 mg/dL H Mar 10, 2024 05:47 PM [facility] GLUCOSE-HAND MONITOR CAPILLARY Specime n Type: CAPILLARY Comment: Test performed by: [id number] Meter #: [id number] Ordering Provider: FELIBERTO MERINO Report Released Date/Time: Mar 10, 2024 11:25 PM Reporting Lab: [address] [address] Performing Lab: [address] [address] GLUCOSE-HAND MONITOR 299 mg/dL H 71-99 Mar 10, 2024 10:36 AM [facility] MRSA SURVL NARES DNA NARES Specime [...] Mar 05, 2024 10:58 AM Reporting Lab: [address] [address] Performing Lab: [address] [address] MRSA SURVL NARES DNA Negative Negative Mar 10, 2024 08:52 AM [facility] PANEL 1 PLASMA Specimen Type: PLASM [...] Mar 05, 2024 10:58 AM Reporting Lab: [address] [address] Performing Lab: [address] [address] CREATININE 1.36 mg/dL H 0.72-1.25 UREA NITROGEN 28 mg/dL H 9-25 GLUCOSE 137 mg/dL H 74-100 SODIUM 136 mmol/L 136-145 POTASSIUM 4.5 mmol/L 3.5-5.1 CHLORIDE 104 mmol/L 98-107 CO2 28 mmol/L 22-29 CALCIUM 10.0 mg/dL 8.4-10.2 ANION GAP 4 meq/L 3-19 eGFR (CKD-EPI) 58 Mar 10, 2024 08:51 AM [facility] CBC/PLT BLOOD Specimen Type: BLOOD No comment entered. Ordering Provider: FELIBERTO MERINO Report Released Date/Time: Mar 05, 2024 10:58 AM Reporting Lab: [address] [address] Performing Lab: [address] [address] WBC 5.6 10*3/uL 5.0-10.0 RBC 4.87 10*6/uL [...] 04:50 AM CHEST SINGLE(1) EW: KATE CARTER [id number] -1960 M Exm Date: MAR 11, 2024@04:50 Req Phys: DOV TELLES Loc: 5-OBM/TEL/03-11-2024@08:53 Img Loc: CDD RADIOLOGY Service: [place] [address] (Case [id number] COMPLETE)CHEST SINGLE(1) VIEW (RAD Detailed) CPT:73213 Proc Modifiers : PORTABLE EXAM Reason for Study: POST EPS PROCEDURE Clinical History: Rule out PTX s/p BiV ICD Report Status: Verified Date Reported: MAR 11, 2024 Date Verified: MAR 11, 2024 Avionics Mechanic E-Sig: Report: EXAMINATION: SINGLE VIEW CHEST CLINICAL [...] Interpreting Staff: CHIN CASTILLO, Radiologist Verified by waiter/waitress tavern for CHIN CASTILLO /[facility] Mar 10, 2024 07:46 AM CABINET FINISHER - FLUORO UP TO 1 HOUR: KATE CARTER [id number] -1960 M Exm Date: MAR 10, 2024@07:46 Req Phys: AIFELIBERTO SR Pat Loc: CARDIAC CATH/OPT/CDD (Req'g Lo Img Loc: ANGIO/NEURO/INTERVENTIONAL Service: [place] [address] (Case [id number] COMPLETE) CABINET FINISHER - FLUORO UP TO 1 HOUR (ANI Detailed) CPT:26394 Reason for Study: BI-V-ICD Clinical History: BI-V-ICD Report Status: Verified Date Reported: Date Verified: MAR 10, 2024 Avionics Mechanic E-Sig: Report: See Impression Impression: Phytopathologist imaging capture for storage. Please see CPRS Phytopathologist consults and notes in CPRS for final reporting and exam documentation. Primary Diagnostic Code: Primary Interpreting Staff: PHYS OTHER THAN [place] RADIOL, Staff Physician Verified by waiter/waitress tavern for PHYS OTHER THAN [place] RADIOL /[facility] RADIOLOGIST,PHYS OTHER THAN [place] [facility]
--- OUTSIDE RECORDS SUMMARY | 2024-07-14 06:49 | XMS_ITS | Encounter Summary ---
Author Name Department of Vetera Affairs ([place]) Organization Department of Vetera Affairs [place] Address [address] [place] [address] Care Team Providers Care Homicide Squad Captain Name Role Phone JOSUE JOOENEDINA Primary Care Provider Erikaa MARTHA Luis Primary [...] PART A May 30, 2024 PART A [id number] WIGGLESWO RTH,STEWA RT PATIENT MEDICARE (WNR) MEDICARE (M) PART B May 30, 2024 PART B [id number] WIGGLESWO RTH,STEWA RT PATIENT [facility] 2017 SELEC T RETIR ED May 16, 2018 [facility] [id number] [phone] WIGGLESWO RTH,STEWA RT PATIENT [facility] 2017 [employer] A Apr 01, 2017 DODA [id number] WIGGLESWO RTH,STEWA RT PATIENT [facility] 2024 [facility] RETIR ED Apr 01, 2024 [facility] [id number] [phone] WIGGLESWO RTHAMY RT PATIENT Selected Encounter This section includes the information on record at MD for the Encounter. Date/Time Encounter Type Encounter Description Reason Pro vider Source Mar 27, 2024 01:16 PM Outpatient Encounter ADMIN PAT ACTIVTIES (MASNONCT) IHE Encounter Template Text not used by [facility] Plan of Treatment: Future Appointments (+ 6 months) and Future Tests (+/- 45 days) The Plan of Treatment section includes future care activities for the patient from all MD treatmentfacilities. This section includes future appointments and future orders which are active, pending or scheduled. Future Appointments This section includes appointments that were scheduled to occur 6 months from the date of the Encounter, up to a maximum of 20 appointments. The data comes from all MD treatment facilities. Appointment Date/Time Appointment Type Appointme nt Facility Name Apr 08, 2024 08:15 AM AMBULATORY - MEDICINE [place] [facility] Apr 16, 2024 01:30 PM [facility] [place] NONE [place] [facility]3] Apr 16, 2024 02:15 PM [facility]ORY - NONE [place] [facility]3] May 05, 2024 09:40 AM AMBULATORY - SURGERY [place] [facility]3] Jun 03, 2024 10:00 AM [facility]ORY - NONE [place] [facility]3] Jun 05, 2024 09:30 AM [facility] - NONE [place] [facility]3] Jun 17, 2024 08:00 AM AMBULATORY - MEDICINE [place] [facility] Jun 17, 2024 09:00 AM [facility] - NONE [place] [facility] Jun 25, 2024 08:00 AM AMBULATORY - MEDICINE [place] [facility] Jun 26, 2024 08:20 AM AMBULATORY - SURGERY [place] [facility] [facility]3] Jun 29, 2024 01:30 PM [facility]ORY - NONE [place] [facility]3] Jul 15, 2024 09:00 AM [facility]ORY - NONE [place] [facility] Jul 27, 2024 08:00 AM [facility] [facility] Jul 29, 2024 01:00 PM [facility]UL[facility]ORY - MEDICINE [place] [facility] August 03, 2024 07:00 AM [facility]ORY - NONE [place] [facility]3] Sep 23, 2024 10:00 AM AMBULATORY - MEDICINE [place] [facility]3] Lab Results: +/- 30 days of the encounter This section includes the Chemistry and Hematology Lab Results on record with MD for the patient. Radiology Reports and Pathology Reports are provided separately, in subsequent sections. Lab Results This section contains the Chemistry/Hematology Results that were resulted 30 days before or 30 daysafter the date of the Encounter. Date/Time Source Result Type Result - Unit Interpretation Reference Range Specimen Type Comment Mar 23, 2024 09:13 AM [facility] N HBSAB SERUM Specimen Type: SERUM [...] Mar 16, 2024 11:01 AM Reporting Lab: [address] [address] Performing Lab: [address] [address] HBSAB Nonreactive Nonreactive Mar 23, 2024 09:13 AM [facility] HBSAG S JOSE Specimen Type: SERUM [...] Mar 16, 2024 11:01 AM Reporting Lab: [address] [address] Performing Lab: [address] [address] HBSAG Nonreactive Nonreactive Mar 23, 2024 09:13 AM [facility] GLYCOHEMOGLOBIN BLOOD Specimen Type: BLOOD Comment: [place] guidelines for A1c interpretation: Glycemic control targets are based on Shared Decision Making between clinicians and patients. Criteria used to establish an A1c target recommendation can be found at https://www.sd.gov/qualityandpatientsafety/ and include the use of result accuracy [...] 8.73 and 9.27. Ref: https://ngsp.org/CAPdata.asp. The in-house [employer] D-100 analyzer has a historical CV <= 2%. Contact the laboratory for further performance characteristics of this assay. Ordering Provider: MARTHA HENLEY Report Released Date/Time: Mar 16, 2024 11:01 AM Reporting Lab: [address] [address] Performing Lab: [address] [address] GLYCOHEMOGLOBIN 8.2 H 4.4-6.4 Mar 23, 2024 09:13 AM [facility] PSA S JOSE Specimen Type: SERUM No comment entered. Ordering Provider: MARTHA HENLEY Report Released Date/Time: Mar 16, 2024 11:01 AM Reporting Lab: [address] [address] Performing Lab: [place] [id number] PSA 1.538 ng/mL 0-3.999 Mar 23, 2024 09:13 AM [facility] LIPID PROFILE PLASMA Specimen Type: PLASMA [...] Mar 16, 2024 11:01 AM Reporting Lab: [address] [address] Performing Lab: [address] [address] CHOLESTEROL 161 mg/dL 0-199 TRIGLYCERIDE 156 mg/dL H 0-149 HDL CHOLESTEROL 58 mg/dL 40-69 DIRECT LDL CHOL. 100 mg/dL 0-100 Mar 23, 2024 09:13 AM [facility] TSH PLASMA Specimen Type: PLASM A [...] Mar 16, 2024 11:01 AM Reporting Lab: [address] [address] Performing Lab: [address] [address] TSH 1.8877 m[IU]/mL 0.3500-4.9400 Mar 23, 2024 09:13 AM [facility] PANEL 5 PLASMA Specimen Type: PLASMA [...] Mar 16, 2024 11:01 AM Reporting Lab: [address] [address] Performing Lab: [address] [address] CREATININE 1.34 mg/dL H 0.72-1.25 UREA NITROGEN [...] (CKD-EPI) 59 Mar 23, 2024 09:13 AM [facility] 25-OH VITAMIN D SERUM Specime n Type: [...] Mar 16, 2024 11:01 AM Reporting Lab: [address] [address] Performing Lab: [address] [address] 25-OH VITAMIN D 51.2 ng/mL H 20.0-50.0 Mar 23, 2024 09:13 AM [facility] B12 VITAMIN PLASMA Specimen Type: PLASM A [...] Mar 16, 2024 11:01 AM Reporting Lab: [address] [address] Performing Lab: [address] [address] B12 VITAMIN 518 pg/mL 213-816 Mar 23, 2024 09:13 AM [facility] CBC/PLT BLOOD Specimen Type: BLOOD No comment entered. Ordering Provider: MARTHA HENLEY Report Released Date/Time: Mar 16, 2024 11:01 AM Reporting Lab: [address] [address] Performing Lab: [address] [address] WBC 6.5 10*3/uL 5.0-10.0 RBC 5.22 10*6/uL 4.6-6.2 HGB 14.3 g/dL 14.0-18.0 HCT 45.6 42.0-52.0 MCV 87.4 fL 80.0-94.0 MCH 27.4 pg 27.0-31.0 MCHC 31.4 g/dL L 32.0-36.0 PLT 180 10*3/uL 150-450 MPV 9.5 fL 9.0-13.1 RDW 15.6 11.0-16.0 NRBC 0.0 0.0-0.0 Mar 11, 2024 06:10 AM [facility] GLUCOSE-HAND MONITOR CAPILLARY Specime n Type: CAPILLARY Comment: Test performed by: [id number] Meter #: [id number] Ordering Provider: FELIBERTO MERINO Report Released Date/Time: Mar 11, 2024 06:27 AM Reporting Lab: [address] [address] Performing Lab: [address] [address] GLUCOSE-HAND MONITOR 170 mg/dL H Mar 10, 2024 08:59 PM [facility] GLUCOSE-HAND MONITOR CAPILLARY Specime n Type: CAPILLARY Comment: Test performed by: [id number] Meter #: [id number] Ordering Provider: FELIBERTO MERINO Report Released Date/Time: Mar 10, 2024 09:52 PM Reporting Lab: [address] [address] Performing Lab: [address] [address] GLUCOSE-HAND MONITOR 260 mg/dL H Mar 10, 2024 05:47 PM [facility] GLUCOSE-HAND MONITOR CAPILLARY Specime n Type: CAPILLARY Comment: Test performed by: [id number] Meter #: [id number] Ordering Provider: FELIBERTO MERINO Report Released Date/Time: Mar 10, 2024 11:25 PM Reporting Lab: [address] [address] Performing Lab: [address] [address] GLUCOSE-HAND MONITOR 299 mg/dL H 71-99 Mar 10, 2024 10:36 AM [facility] MRSA SURVL NARES DNA NARES Specime n [...] Mar 05, 2024 10:58 AM Reporting Lab: [address] [address] Performing Lab: [address] [address] MRSA SURVL NARES DNA Negative Negative Mar 10, 2024 08:52 AM [facility] PANEL 1 PLASMA Specimen Type: PLASM A [...] Mar 05, 2024 10:58 AM Reporting Lab: [address] [address] Performing Lab: [address] [address] CREATININE 1.36 mg/dL H 0.72-1.25 UREA NITROGEN 28 mg/dL H 9-25 GLUCOSE 137 mg/dL H 74-100 SODIUM 136 mmol/L 136-145 POTASSIUM 4.5 mmol/L 3.5-5.1 CHLORIDE 104 mmol/L 98-107 CO2 28 mmol/L 22-29 CALCIUM 10.0 mg/dL 8.4-10.2 ANION GAP 4 meq/L 3-19 eGFR (CKD-EPI) 58 Mar 10, 2024 08:51 AM [facility] CBC/PLT BLOOD Specimen Type: BLOOD No comment entered. Ordering Provider: FELIBERTO MERINO Report Released Date/Time: Mar 05, 2024 10:58 AM Reporting Lab: [address] [address] Performing Lab: [address] [address] WBC 5.6 10*3/uL 5.0-10.0 RBC 4.87 10*6/uL [...] the Encounter. The data comes from all MD treatment facilities. Date/Time Radiology Report Provider Source Mar 11, 2024 04:50 AM CHEST SINGLE(1) EW: KATE CARTER [id number] -1960 M Exm Date: MAR 11, 2024@04:50 Req Phys: DOV TELLES Pat Loc: 5-OBM/TEL/03-11-2024@08:53 Img Loc: CDD RADIOLOGY Service: [place] [address] (Case [id number] COMPLETE)CHEST SINGLE(1) VIEW (RAD Detailed) CPT:32825 Proc Modifiers : PORTABLE EXAM Reason for Study: POST EPS PROCEDURE Clinical History: Rule out PTX s/p BiV ICD Report Status: Verified Date Reported: MAR 11, 2024 Date Verified: MAR 11, 2024 Plug Making Operator E-Sig: Report: EXAMINATION: SINGLE VIEW CHEST CLINICAL [...] Interpreting Staff: CHIN CASTILLO, Radiologist Verified by unit educator for CHIN CASTILLO /[facility] Mar 10, 2024 07:46 AM MOSS PICKER - FLUORO UP TO 1 HOUR: KATE CARTER [id number] -1960 M Exm Date: MAR 10, 2024@07:46 Req Phys: AIKAT,SHAMIK Pat Loc: CARDIAC CATH/OPT/CDD (Req'g Lo Img Loc: ANGIO/NEURO/INTERVENTIONAL Service: [place] [address] (Case [id number] COMPLETE) MOSS PICKER - FLUORO UP TO 1 HOUR (ANI Detailed) CPT:90080 Reason for Study: BI-V-ICD Clinical History: BI-V-ICD Report Status: Verified Date Reported: Date Verified: MAR 10, 2024 Plug Making Operator E-Sig: Report: See Impression Impression: Irrigator Head imaging capture for storage. Please see CPRS Irrigator Head consults and notes in CPRS for final reporting and exam documentation. Primary Diagnostic Code: Primary Interpreting Staff: PHYS OTHER THAN MD RADIOL, Staff Physician Verified by unit educator for PHYS OTHER THAN MD RADIOL /[facility] RADIOLOGIST,PHYS OTHER THAN [facility] Encounter Notes: All associated encounter notes This section contains the clinical notes associated to the Encounter. Date/Time Encounter Note(s) Provider Source Mar 27, 2024 01:16 PM ADMINISTRATIVE NOT E: LOCAL TITLE: CLERICAL/ADMIN NOTE STANDARD TITLE: ADMINISTRATIVE NOTE DATE OF NOTE: MAR 27, 2024@13:16 ENTRY DATE: MAR 27, 2024@13:16:06 AUTHOR: AYANA LOUISE EXP COSIGNER: URGENCY: STATUS: COMPLETED Spoke with to schedule as follows and ltr mailed: Jun 17, 2024@09:00 [facility]/MRI/D[place]OTHEA/[place] NON-COUNT/FUTURE *DEFIBRILLATOR* Vinay- please coordinate a pacer appointment for the above appointment. /amando/ Ayana Louise Advanced Dynamite Cartridge Crimper Signed: 03/27/2024 13:16 Receipt Acknowledged By: 03/31/2024 13:25 /amando/ MONET RIGGS MRI & US Driver Medic, MRSO 03/30/2024 16:21 /es/ AYANA BLANCA-CDD [facility]
--- OUTSIDE RECORDS SUMMARY | 2024-07-14 06:49 | XMS_ITS ---
Author Name [facility] Organization [facility] [place] Address [address] [place] [address] Care Team Providers Care Linotype Operator Name Role Phone JOSUE JOOENEDINA Primary Care [...] PART A May 30, 2024 PART A [id number] WIGGLESWO RTH,STEWA RT PATIENT MEDICARE (WNR) MEDICARE (M) PART B May 30, 2024 PART B [id number] WIGGLESWO RTH,STEWA RT PATIENT [facility] 2017 SELEC T RETIR ED May 16, 2018 SELECT RETIRED [id number] [phone] WIGGLESWO RTH,STEWA RT PATIENT [facility] 2018 [employer]IME [employer] A Apr 01, 2017 DODA [id number] WIGGLESWO RTH,STEWA RT PATIENT [facility] 2024 PRIME RETIR ED Apr 01, 2024 PRIME RETIRED [id number] [phone] WIGGLESWO RTH,AMY RT PATIENT Selected Encounter This section includes the information on record at [place] for the Encounter. Date/Time Encounter Type Encounter Description Reason Provider Source Mar 23, 2024 10:00 AM OFFICE O/P EST MOD 30 MIN CIED DEVICES ICD-10-CM Z48.812 Encntr for surgical aftcr following surgery on the circ BASSAM Bruce IHE Encounter Template Text not used by [place] Assessments - Encounter Diagnoses This section includes the primary and secondary diagnoses documented for the Encounter. Date/Time Primary/Secondary Diagnosis Diagnosis Name Provider Source Apr 08, 2024 10:37 AM PRIMARY Encntr for surgical aftcr following surgery on the circ BASSAM Bruce [facility] Plan of Treatment: Future Appointments (+ 6 months) and Future Tests (+/- 45 days) The Plan of Treatment section includes future care activities for the patient from all [place] treatmentfacilities. This section includes future appointments and future orders which are active, pending or scheduled. Future Appointments This section includes appointments that were scheduled to occur 6 months from the date of the Encounter, up to a maximum of 20 appointments. The data comes from all [place] treatment facilities. Appointment Date/Time Appointment Type Appointme nt Facility Name Apr 08, 2024 08:15 AM AMBULATORY - MEDICINE [place] [facility] Apr 16, 2024 01:30 PM AMBULATORY - NONE [place] [facility] Apr 16, 2024 02:15 PM AM[place]ULATORY - NONE [place] [facility] May 05, 2024 09:40 AM AMBULATORY - SURGERY [place] [facility] Jun 03, 2024 10:00 AM AM[place]UL[place]ORY - NONE [place] [facility] Jun 05, 2024 09:30 AM AM[place]ULATORY - NONE [place] [facility] Jun 17, 2024 08:00 AM AM[facility]ULATORY - MEDICINE [facility] Jun 17, 2024 09:00 AM AM[place]UL[facility]ORY - NONE [place] Jun 25, 2024 08:00 AM AMBULATORY - MEDICINE [place] [facility] Jun 26, 2024 08:20 AM AMBULATORY - SURGERY [place] [facility] Jun 29, 2024 01:30 PM AMBULATORY - NONE [place] [facility] Jul 15, 2024 09:00 AM AMBULATORY - NONE [place]-D [facility] Jul 27, 2024 08:00 AM AMBULATORY - SURGERY [facility] Jul 29, 2024 01:00 PM AMBULATORY - MEDICINE [place] HAMM [facility] August 03, 2024 07:00 AM [facility] Lab Results: +/- 30 days of the encounter This section includes the Chemistry and Hematology Lab Results on record with [place] for the patient. Radiology Reports and Pathology Reports are provided separately, in subsequent sections. Lab Results This section contains the Chemistry/Hematology Results that were resulted 30 days before or 30 daysafter the date of the Encounter. Date/Time Source Result Type Result - Unit Interpretation Reference Range Specimen Type Comment Mar 23, 2024 09:13 AM [facility] N HBSAB SERUM Specimen Type: SERUM [...] Mar 16, 2024 11:01 AM Reporting Lab: [facility] [address] [facility] [address] Performing Lab: [address] [address] HBSAB Nonreactive Nonreactive Mar 23, 2024 09:13 AM [facility] HBSAG S JOSE Specimen Type: SERUM [...] Mar 16, 2024 11:01 AM Reporting Lab: [address] [address] Performing Lab: [address] [address] HBSAG Nonreactive Nonreactive Mar 23, 2024 09:13 AM [facility] GLYCOHEMOGLOBIN BLOOD Specimen Type: BLOOD Comment: [facility] guidelines for A1c interpretation: Glycemic control targets are based on Shared Decision Making between clinicians and patients. Criteria used to establish an A1c target recommendation can be found at https://www.in.gov/qualityandpatientsafety/ and include the use of result accuracy [...] 8.73 and 9.27. Ref: https://ngsp.org/CAPdata.asp. The in-house [employer]-Game[employer] D-100 analyzer has a historical CV <= 2%. Contact the laboratory for further performance characteristics of this assay. Ordering Provider: MARTHA HENLEY Report Released Date/Time: Mar 16, 2024 11:01 AM Reporting Lab: [address] [address] Performing Lab: [address] [address] GLYCOHEMOGLOBIN 8.2 H 4.4-6.4 Mar 23, 2024 09:13 AM [facility] PSA S JOSE Specimen Type: SERUM No comment entered. Ordering Provider: AMRTHA HENLEY Report Released Date/Time: Mar 16, 2024 11:01 AM Reporting Lab: [place] [id number] Performing Lab: [address] [address] PSA 1.538 ng/mL 0-3.999 Mar 23, 2024 09:13 AM [facility] LIPID PROFILE PLASMA Specimen Type: PLASMA [...] Mar 16, 2024 11:01 AM Reporting Lab: [address] [address] Performing Lab: [address] [address] CHOLESTEROL 161 mg/dL 0-199 TRIGLYCERIDE 156 mg/dL H 0-149 HDL CHOLESTEROL 58 mg/dL 40-69 DIRECT LDL CHOL. 100 mg/dL 0-100 Mar 23, 2024 09:13 AM [facility] PANEL 5 PLASMA Specimen Type: PLASMA [...] Mar 16, 2024 11:01 AM Reporting Lab: [facility] [address] [facility] [address] Performing Lab: [address] [address] CREATININE 1.34 mg/dL H 0.72-1.25 UREA NITROGEN [...] (CKD-EPI) 59 Mar 23, 2024 09:13 AM [facility] B12 VITAMIN PLASMA Specimen Type: PLASM [...] Mar 16, 2024 11:01 AM Reporting Lab: [address] [address] Performing Lab: [address] [address] B12 VITAMIN 518 pg/mL 213-816 Mar 23, 2024 09:13 AM [facility] TSH PLASMA Specimen Type: PLASM A Comment: [...] Mar 16, 2024 11:01 AM Reporting Lab: [address] [address] Performing Lab: [address] [address] TSH 1.8877 m[IU]/mL 0.3500-4.9400 Mar 23, 2024 09:13 AM [facility] 25-OH VITAMIN D SERUM Specime n [...] Mar 16, 2024 11:01 AM Reporting Lab: [address] [address] Performing Lab: [address] [address] 25-OH VITAMIN D 51.2 ng/mL H 20.0-50.0 Mar 23, 2024 09:13 AM [facility] CBC/PLT BLOOD Specimen Type: BLOOD No comment entered. Ordering Provider: MARTHA HENLEY Report Released Date/Time: Mar 16, 2024 11:01 AM Reporting Lab: [address] [address] Performing Lab: [place] [phone] WBC 6.5 10*3/uL 5.0-10.0 RBC 5.22 10*6/uL 4.6-6.2 HGB 14.3 g/dL 14.0-18.0 HCT 45.6 42.0-52.0 MCV 87.4 fL 80.0-94.0 MCH 27.4 pg 27.0-31.0 MCHC 31.4 g/dL L 32.0-36.0 PLT 180 10*3/uL 150-450 MPV 9.5 fL 9.0-13.1 RDW 15.6 11.0-16.0 NRBC 0.0 0.0-0.0 Mar 11, 2024 06:10 AM [facility] GLUCOSE-HAND MONITOR CAPILLARY Specime n Type: CAPILLARY Comment: Test performed by: [id number] Meter #: [id number] Ordering Provider: FELIBERTO MERINO Report Released Date/Time: Mar 11, 2024 06:27 AM Reporting Lab: [address] [address] Performing Lab: [address] [address] GLUCOSE-HAND MONITOR 170 mg/dL H Mar 10, 2024 08:59 PM [facility] GLUCOSE-HAND MONITOR CAPILLARY Specime n Type: CAPILLARY Comment: Test performed by: [id number] Meter #: [id number] Ordering Provider: FELIBERTO MERINO Report Released Date/Time: Mar 10, 2024 09:52 PM Reporting Lab: [address] [address] Performing Lab: [address] [address] GLUCOSE-HAND MONITOR 260 mg/dL H Mar 10, 2024 05:47 PM [facility] GLUCOSE-HAND MONITOR CAPILLARY Specime n Type: CAPILLARY Comment: Test performed by: [id number] Meter #: [id number] Ordering Provider: FELIBERTO MERINO Report Released Date/Time: Mar 10, 2024 11:25 PM Reporting Lab: [address] [address] Performing Lab: [address] [address] GLUCOSE-HAND MONITOR 299 mg/dL H Mar 10, 2024 10:36 AM [facility] MRSA SURVL NARES DNA NARES Specime [...] Mar 05, 2024 10:58 AM Reporting Lab: [address] [address] Performing Lab: [address] [address] MRSA SURVL NARES DNA Negative Negative Mar 10, 2024 08:52 AM [facility] PANEL 1 PLASMA Specimen Type: [...] Mar 05, 2024 10:58 AM Reporting Lab: [address] [address] Performing Lab: [address] [address] CREATININE 1.36 mg/dL H 0.72-1.25 UREA NITROGEN 28 mg/dL H 9-25 GLUCOSE 137 mg/dL H 74-100 SODIUM 136 mmol/L 136-145 POTASSIUM 4.5 mmol/L 3.5-5.1 CHLORIDE 104 mmol/L 98-107 CO2 28 mmol/L 22-29 CALCIUM 10.0 mg/dL 8.4-10.2 ANION GAP 4 meq/L 3-19 eGFR (CKD-EPI) 58 Mar 10, 2024 08:51 AM [facility] CBC/PLT BLOOD Specimen Type: BLOOD No comment entered. Ordering Provider: FELIBERTO MERINO Report Released Date/Time: Mar 05, 2024 10:58 AM Reporting Lab: [facility] [address] [facility] [address] Performing Lab: [address] [address] WBC 5.6 10*3/uL 5.0-10.0 RBC 4.87 10*6/uL [...] the Encounter. The data comes from all [place] treatment facilities. Date/Time Radiology Report Provider Source Mar 11, 2024 04:50 AM CHEST SINGLE(1) EW: DEBORAHHERMILOKATE CASTANEDA [id number] -1960 M Exm Date: MAR 11, 2024@04:50 Req Phys: DOV TELLES Loc: 5-OBM/TEL/03-11-2024@08:53 Img Loc: CDD RADIOLOGY Service: [place] [address] (Case [id number] COMPLETE)CHEST SINGLE(1) VIEW (RAD Detailed) CPT:81999 Proc Modifiers : PORTABLE EXAM Reason for Study: POST EPS PROCEDURE Clinical History: Rule out PTX s/p BiV ICD Report Status: Verified Date Reported: MAR 11, 2024 Date Verified: MAR 11, 2024 Meat Products Demonstrator E-Sig: Report: EXAMINATION: SINGLE VIEW CHEST CLINICAL [...] Interpreting Staff: CHIN CASTILLO, Radiologist Verified by calciner feeder for CHIN CASTILLO /[facility] Mar 10, 2024 07:46 AM SUPERVISOR RICE MILLING - FLUORO UP TO 1 HOUR: RAFANTHONYKATE CASTANEDA [id number] -1960 M Exm Date: MAR 10, 2024@07:46 Req Phys: FELIBERTO MERINO Pat Loc: CARDIAC CATH/OPT/CDD (Req'g Lo Img Loc: ANGIO/NEURO/INTERVENTIONAL Service: [place] [address] (Case [id number] COMPLETE) SUPERVISOR RICE MILLING - FLUORO UP TO 1 HOUR (ANI Detailed) CPT:72578 Reason for Study: BI-V-ICD Clinical History: BI-V-ICD Report Status: Verified Date Reported: Date Verified: MAR 10, 2024 Meat Products Demonstrator E-Sig: Report: See Impression Impression: Victim Witness Administrator imaging capture for storage. Please see [facility] Victim Witness Administrator consults and notes in CPRS for final reporting and exam documentation. Primary Diagnostic Code: Primary Interpreting Staff: PHYS OTHER THAN [place] RADIOL, Staff Physician Verified by calciner feeder for PHYS OTHER THAN [place] RADI[facility] /[facility] RADIOLOGIST,PHYS OTHER THAN [facility] Encounter Notes: All associated encounter notes This section contains the clinical notes associated to the Encounter. Date/Time Encounter Note(s) Provider Source Mar 23, 2024 01:34 PM CARDIOLOGY NOTE: LOCAL TITLE: CARDIOLOGY CLINIC PROVIDER NOTE STANDARD TITLE: CARDIOLOGY NOTE DATE OF NOTE: MAR 23, 2024@13:34 ENTRY DATE: MAR 23, 2024@13:34:20 AUTHOR: BASSAM NAVA EXP COSIGNER: URGENCY: STATUS: COMPLETED CARDIOLOGY CLINIC PROVIDER NOTE Has ADDENDA Follow up clinic note: CARDIOLOGY CLINIC NOTE Reason for visit:Post procedure follow up - S/P WIRE BENDER HAND-D implantation on 03/10/2024 PMH- HFrEF ,ICM with LVEF via CMRI ~24% on 04/23/23.MVO2 71%. Cardiovascular Problem List: 1. 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 Nonflow-limiting RCA disease. LVEF 30% with anterior wall motion abnormality. 2. Ischemic Cardiomypoathyy 3. HFrEF ~24% LVEF on 04/23/23via CMRI. MVO2 - 71% 4. HYpertension 5. Hyperlipidemia 6. Diabetes Mellitus- Insulin requirring. Diagnosed 2004. HPI: KATE CARTER is a 63 year old MALE with a past medical history as listed above who presents today for cardiology follow up after undergoing . He was last seen in our clinic on January. Today is denies recent fevers, chills, drainage from the aquacel dresssing. He has done well since device implant. ROS: Reviewed and negative except as listed above in HPI. PMHx: Active problems - Computerized Problem List is the source for the followin. Coronary artery disease 2. Fatty liver 3. Neuropathy due to type 2 diabetes mellitus 4. Hypertension 5. Glaucoma ophthal eval 03/06/19: open angle, moderate OS 6. Age related macular degeneration ophthal eval 03/06/19: AMD - non Ex intermediate OD 7. Degeneration of cervical intervertebral disc 8. Gastroesophageal reflux disease 9. Bilateral plantar fasciitis 10. Basal cell carcinoma of skin PSHx: Reviewed and unchanged from previous Social Hx: Reviewed and unchanged from previous Family Hx: Reviewed and unchanged from previous Medications: Active Outpatient Medications (including Supplies): Active Outpatient [...] A DAY FOR ACTIVE DIABETES 9) GLUCOSE SENSOR DEXCOM G7 USE SENSOR DIRECTED EVERY 10 ACTIVE DAYS Indication: FOR BLOOD SUGAR MONITORING 10) METFORMIN HCL 500MG 24HR SA TAB TAKE TWO TABLETS BY MOUTH ACTIVE TWICE A DAY FOR DIABETES 11) METOPROLOL SUCCINATE 100MG SA TAB TAKE ONE AND ONE-HALF ACTIVE TABLETS BY MOUTH DAILY Indication: FOR HEART 12) MULTIVIT/OPHTH AREDS2/LUTE/ZEAX CAP/TAB TAKE 1 SOFTGEL BY ACTIVE MOUTH TWICE A DAY AFTER MEALS FOR EYE HEALTH 13) NEEDLE,PEN 32G,4MM USE 1 NEEDLE UNDER THE SKIN EVERY DAY ACTIVE 14) OMEPRAZOLE 20MG EC CAP TAKE ONE CAPSULE BY MOUTH TWICE A DAY ACTIVE FOR STOMACH. TAKE ON AN EMPTY STOMACH 15) ROSUVASTATIN CA 40MG TAB TAKE ONE TABLET BY MOUTH DAILY ACTIVE Indication: FOR CHOLESTEROL 16) SACUBITRIL 97MG/VALSARTAN 103MG TAB TAKE 1 TABLET BY MOUTH ACTIVE TWICE A DAY Indication: FOR HEART FAILURE 17) SPIRONOLACTONE 25MG TAB TAKE ONE TABLET BY MOUTH DAILY ACTIVE Indication: FOR HEART FAILURE Pending Outpatient Medications Status 1) INSULIN,GLARGINE-YFGN 100UNIT/ML *PEN* INJECT 20 UNITS UNDER PENDING THE SKIN DAILY -DISCARD PEN AFTER 28 DAYS OF USE Indication: FOR BLOOD SUGAR Active Non-VA Medications Status 1) Non-VA ASCORBIC ACID 500MG TAB 1000MG MOUTH DAILY ACTIVE 2) Non-VA CENTRUM SILVER TABLET 1 TABLET MOUTH DAILY ACTIVE 3) Non-VA COENZYME Q10 CAP/TAB 1 CAP/TAB MOUTH DAILY ACTIVE 4) Non-VA MAGNESIUM OXIDE 420MG TAB 840MG MOUTH DAILY ACTIVE 22 Total Medications Allergies/Adverse Reactions: VANCOMYCIN, GABAPENTIN, PREGABALIN, SIMVASTATIN, ROSUVASTATIN Relevant Imaging/Procedures: 4- Device Interrogation Implant details: Generator - [employer], model [id number], SN [id number]. RA lead - [employer], model [id number], SN [id number]. RV lead - [employer], model [id number], SN [id number]. LV - [employer], model [id number], SN [id number]. Parameters: RA - threshold - 0.25v@0.5ms, 460 ohms, sensing - >5mV RV - threshold - 0.25v@0.5ms, 640 ohms, sensing - >12mV LV - threshold - 1.25v@0.5ms, 700 ohms. DFT's - were not assessed. Shock coil impedance - 73 ohms. Interrogation : Device Manufacurer :Ardon Model # [place] HF [id number] WIRE BENDER HAND-D Serial # [id number] Date Implanted: 03/10/2024 Battery anticipated remaining life- 6.2 yrs/ voltage:Current 23 uA, ROMA > 95% Charge time id ICD: 8.1 Shock lead impedence/s: Atrial pacing 1.3%, BP- 98% %. Atrial Impedence 390ohms. RV 500, LV 330 , HV 57 , pacing threshold - MODE DDD base rate 6 0 bpm, max track 120 bpm, sensed AV delay 150 ms, Ventricular pacing Simul. Arrythmias - none to date . First Interrogation post implant. Device is functioning well, no changes or adjustments made today. Left upper chest device pocket incision healing without redness, drainage from aquacel. No pocket hematoma . Skin edges well approximated. Skin edmund removed and steri- strips applied. Patient and instructed on wound care and reinforced LUE restrictions remain in place for 2 more weeks. Both verbalized undestanding. Assessment/Plan: KATE CARTER is a 63 year old MALE with a past medical history as described above who presented today for post cardiac implantable device follow up and interrogation. Follow Up: RTC : 6 months in the Device clinic with interrogation Total time spent on visit today including reviewing history, performing an exam and evaluation, documenting in EHR, interpreting results, counseling patient, and care coordination: 30 minutes /amando/ BASSAM NAVA PRODUCT DEVELOPMENT SCIENTIST, Cardiology Signed: 03/23/2024 14:00 04/02/2024 ADDENDUM STATUS: COMPLETED [place] exited clinic per MD. All medications and treatment plan were discussed with prior to exiting clinic by MD. to RTC 6 months in the Device clinic with interrogation with XIOMY MED CARD DEVICE via F2F, per provider order/instruction above. Appointment letter to be mailed. /amando/ GILBERT LAWTON SUPERVISOR LABORATORY NURSE WAREHOUSE ASSEMBLY WORKER Signed: 04/02/2024 15:32 BASSAM NAVA-CDD [facility] Mar 23, 2024 10:11 AM NURSING OUTPATIENT NOTE: LOCAL TITLE: [facility] MED[facility]INE CLINIC INTAKE NOTE STANDARD TITLE: NURSING OUTPATIENT NOTE DATE OF NOTE: MAR 23, 2024@10:11 ENTRY DATE: MAR 23, 2024@10:11:58 AUTHOR: SHAKILA GRIFFIN COSIGNER: URGENCY: STATUS: COMPLETED Reason for visit/chief complaint: B/P: 129/80 (03/23/2024 10:05) P: 67 (03/23/2024 10:05) R: 16 (03/16/2024 10:02) T: 98.0 F [36.7 C] (03/23/2024 10:05) HT: 72 in [182.9 cm] (03/16/2024 10:02) WT: 202.8 lb [91.99 kg] (03/23/2024 10:05) Are you having any pain or recurrent pain in the last several weeks/months? No Location: Duration: Characteristics: Pain education material offered to patient (for pain > 3) No Risk factors history: Hypertension No BP Rechecked No Comments: Patient notified computer instructor available upon request for any examinations/procedures. The patient was given a list of his/her medications, instructed to review and discuss any changes or problems with their provider. Patient advised to carry a list of current medications and any allergies with them in the event of emergency situations. Allergies: local and remote VANCOMYCIN, GABAPENTIN, PREGABALIN, SIMVASTATIN, ROSUVASTATIN FACILITY ALLERGY/ADR -------- [phone]^DEBI [facility]^[phone] VANCOMYCIN Medication Reconciliation ACTIVE OUTPATIENT MEDICATIONS LOCAL/REMOTE [...] 200 for 30 days Issued: 03/16/24 Filled: 03/17/24 Expires: 03/17/25 Refills: 3 Status: ACTIVE ASPIRIN 81MG EC TAB Directions: TAKE ONE TABLET BY MOUTH DAILY FOR HEART Quantity: 90 for 90 days Issued: 01/29/24 Filled: 01/30/24 Expires: 01/29/25 Refills: 3 Status: ACTIVE CHOLECALCIF 25MCG (D3-1,000UNIT) TAB Directions: TAKE ONE TABLET BY MOUTH DAILY FOR VITAMIN D SUPPLEMENT Quantity: 100 for 90 days Issued: 12/03/23 Filled: 01/10/24 Expires: 12/03/24 Refills: 3 Status: ACTIVE EMPAGLIFLOZIN 10MG TAB Directions: TAKE ONE TABLET BY MOUTH EVERY MORNING FOR HEART FAILURE Quantity: 90 for 90 days Issued: 09/25/23 Filled: 01/17/24 Expires: 09/25/24 Refills: 2 Status: ACTIVE EZETIMIBE 10MG TAB Directions: TAKE ONE TABLET BY MOUTH EVERY EVENING FOR CHOLESTEROL Quantity: 90 for 90 days Issued: 09/25/23 Filled: 01/17/24 Expires: 09/25/24 Refills: 2 Status: ACTIVE FLUTICASONE PROP 50MCG 120D NASAL INHL Directions: USE 1 SPRAY IN EACH NOSTRIL DAILY FOR NASAL ALLERGY Quantity: 3 for 90 days Issued: 11/11/23 Filled: 01/30/24 Expires: 11/11/24 Refills: 2 Status: ACTIVE GLIPIZIDE 10MG TAB Directions: TAKE TWO TABLETS BY MOUTH TWICE A DAY FOR DIABETES Quantity: 360 for 90 days Issued: 12/10/23 Filled: 12/16/23 Expires: 12/10/24 Refills: 3 Status: ACTIVE GLUCOSE SENSOR DEXCOM G7 Directions: USE SENSOR DIRECTED EVERY 10 DAYS FOR BLOOD SUGAR MONITORING Quantity: 9 for 90 days Issued: 03/17/24 Filled: 03/20/24 Expires: 03/18/25 Refills: 3 Status: ACTIVE INSULIN,GLARGINE-YFGN 100UNIT/ML *PEN* Directions: INJECT 17 UNITS UNDER THE SKIN DAILY FOR BLOOD SUGAR -DISCARD PEN AFTER 28 DAYS OF USE Quantity: 5 for 90 days Issued: 10/15/23 Filled: 01/04/24 Expires: 10/15/24 Refills: 2 Status: ACTIVE METFORMIN HCL 500MG 24HR SA TAB Directions: TAKE TWO TABLETS BY MOUTH TWICE A DAY FOR DIABETES Quantity: 120 for 30 days Issued: 02/05/24 Filled: 03/27/24 Expires: 02/05/25 Refills: 9 Status: ACTIVE METOPROLOL SUCCINATE 100MG SA TAB Directions: TAKE ONE AND ONE-HALF TABLETS BY MOUTH DAILY FOR HEART Quantity: 135 for 90 days Issued: 09/25/23 Filled: 03/14/24 Expires: 09/25/24 Refills: 1 Status: ACTIVE MULTIVIT/OPHTH AREDS2/LUTE/ZEAX CAP/TAB Directions: TAKE 1 SOFTGEL BY MOUTH TWICE A DAY AFTER MEALS FOR EYE HEALTH Quantity: 180 for 90 days Issued: 01/17/24 Filled: 01/20/24 Expires: 01/17/25 Refills: 3 Status: ACTIVE NEEDLE,PEN 32G,4MM Directions: USE 1 NEEDLE UNDER THE SKIN EVERY DAY Quantity: 100 for 90 days Issued: 03/06/24 Filled: 03/09/24 Expires: 03/07/25 Refills: 1 Status: ACTIVE OMEPRAZOLE 20MG EC CAP Directions: TAKE ONE CAPSULE BY MOUTH TWICE A DAY FOR STOMACH. TAKE ON AN EMPTY STOMACH Quantity: 180 for 90 days Issued: 02/05/24 Filled: 02/05/24 Expires: 02/05/25 Refills: 3 Status: ACTIVE ROSUVASTATIN CA 40MG TAB Directions: TAKE ONE TABLET BY MOUTH DAILY FOR CHOLESTEROL Quantity: 90 for 90 days Issued: 09/25/23 Filled: 01/17/24 Expires: 09/25/24 Refills: 2 Status: ACTIVE SACUBITRIL 97MG/VALSARTAN 103MG TAB Directions: TAKE 1 TABLET BY MOUTH TWICE A DAY FOR HEART FAILURE Quantity: 180 for 90 days Issued: 01/29/24 Filled: 02/28/24 Expires: 01/29/25 Refills: 3 Status: ACTIVE SPIRONOLACTONE 25MG TAB Directions: TAKE ONE TABLET BY MOUTH DAILY FOR HEART FAILURE Quantity: 90 for 90 days Issued: 09/25/23 Filled: 03/14/24 Expires: 09/25/24 Refills: 1 Status: ACTIVE No remote medications found. PENDING [...] Status: ACTIVE OUTPATIENT MEDICATIONS (LOCAL)WITHIN 90 DAYS: CLOPIDOGREL BISULFATE 75MG TAB Directions: TAKE ONE TABLET BY MOUTH DAILY TO THIN BLOOD Quantity: 90 for 90 days Issued: 02/13/23 Filled: 11/01/23 Expires: 02/14/24 Refills: 0 Status: LATANOPROST 0.005% OPH SOLN Directions: PUT 1 DROP IN BOTH EYES AT BEDTIME FOR GLAUCOMA Quantity: 10 for 90 days Issued: 11/18/23 Filled: 11/18/23 Expires: 02/16/24 Refills: 0 Status: DISCONTINUED OUTPATIENT MEDICATIONS (LOCAL) WITHIN 90 DAYS: ACCU-CHEK GUIDE (GLUCOSE) TEST STRIP Directions: USE 1 STRIP TO TEST BLOOD SUGAR DIRECTED Quantity: 200 for 90 days Issued: 01/08/23 Filled: 12/12/23 Expires: 01/09/24 Refills: 0 Status: DISCONTINUED ACETAMINOPHEN 325MG TAB [...] 03/26/23 Expires: 01/09/24 Refills: 3 Status: DISCONTINUED ASPIRIN 81MG EC TAB Directions: TAKE ONE TABLET BY MOUTH DAILY FOR HEART Quantity: 90 for 90 days Issued: 02/13/23 Filled: 11/01/23 Expires: 02/14/24 Refills: 0 Status: DISCONTINUED CHOLECALCIF 25MCG (D3-1,000UNIT) TAB Directions: [...] 11/22/23 Expires: 10/22/24 Refills: 3 Status: DISCONTINUED LIDOCAINE 5% OINT Directions: APPLY SMALL AMOUNT TO AFFECTED AREA DAILY FOR PAIN Quantity: 70 for 30 days Issued: 01/08/23 Filled: 01/09/23 Expires: 01/09/24 Refills: 3 Status: DISCONTINUED LISINOPRIL 40MG TAB Directions: TAKE ONE TABLET BY MOUTH DAILY FOR BLOOD PRESSURE/HEART Quantity: 90 for 90 days Issued: 01/08/23 Filled: 01/09/23 Expires: 01/09/24 Refills: 3 Status: DISCONTINUED METFORMIN HCL 500MG 24HR SA TAB Directions: TAKE TWO TABLETS BY MOUTH TWICE A DAY FOR DIABETES Quantity: 360 for 90 days Issued: 01/08/23 Filled: 10/22/23 Expires: 01/09/24 Refills: 0 Status: DISCONTINUED MULTIVIT/OPHTH AREDS2/LUTE/ZEAX CAP/TAB [...] 02/14/23 Expires: 02/14/24 Refills: 1 Status: DISCONTINUED OMEPRAZOLE 20MG EC CAP Directions: TAKE ONE CAPSULE BY MOUTH TWICE A DAY FOR STOMACH. TAKE ON AN EMPTY STOMACH Quantity: 180 for 90 days Issued: 01/08/23 Filled: 10/22/23 Expires: 01/09/24 Refills: 1 Status: DISCONTINUED SACUBITRIL 24MG/VALSARTAN 26MG [...] 05/06/23 Expires: 02/14/24 Refills: 2 Status: DISCONTINUED ACETAMINOPHEN 325MG TAB Directions: TAKE TWO TABLETS BY MOUTH TWICE A DAY NEEDED FOR PAIN - DO NOT TAKE MORE THAN 12 TABLETS PER DAY Quantity: 100 for 30 days Issued: 01/14/24 Filled: 02/27/24 Expires: 01/14/25 Refills: 2 Status: DISCONTINUED (EDIT) EMPAGLIFLOZIN 10MG TAB Directions: TAKE ONE TABLET [...] Refills: 2 Status: DISCONTINUED (EDIT) METOPROLOL SUCCINATE 50MG SA [...] Expires: 07/16/24 Refills: 0 Status: DISCONTINUED (EDIT) SACUBITRIL 97MG/VALSARTAN 103MG TAB Directions: TAKE 1 TABLET BY MOUTH TWICE A DAY FOR HEART FAILURE DOSE INCREASE Quantity: 180 for 90 days Issued: 11/29/23 Filled: 11/29/23 Expires: 02/27/24 Refills: 0 Status: DISCONTINUED (EDIT) SPIRONOLACTONE 25MG TAB Directions: TAKE ONE-HALF TABLET BY MOUTH DAILY FOR HEART FAILURE Quantity: 15 for 30 days Issued: 08/02/23 Filled: 08/23/23 Expires: 08/02/24 Refills: 2 Status: DISCONTINUED (EDIT) CLINIC MEDICATIONS (LOCAL): CEFAZOLIN 1GM/D5W 50ML INJ Special: Give adoption coordinator to medical 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 PROPHYLAXIS Solution: CEFAZOLIN 1GM/D5W (50 ML) Issued: 03/10/24 Expires: 04/10/24 Status: ACTIVE SODIUM CHLORIDE 0.9% INJ,SOLN Special: call center support representative to Victim Witness Administrator. Solution: SODIUM CHLORIDE 0.9% (1000 ML) Issued: 03/10/24 Expires: 03/24/24 Status: ACTIVE GENTAMICIN INJ,SOLN Special: For Victim Witness Administrator Solution: SODIUM CHLORIDE 0.9% *IRRIG* (500 ML) Additive: GENTAMICIN (40 MG) Issued: 03/10/24 Expires: 03/11/24 Status: Reviewed current medications with patient/signficant other, [...] case of an emergency situation. Yes /amando/ SHAKILA GRIFFIN TRANSPORT ASSITANT Signed: 03/23/2024 10:12 SHAKILA GRIFFIN-MARÍA [facility]
--- OUTSIDE RECORDS SUMMARY | 2024-07-14 06:49 | XMS_ITS ---
Author Name [facility] [place] [facility] [place] [facility] [place] Address [address] [place] [address] Care Team Providers Care Manager Combination Name Role Phone JOSUE JOOENEDINA Primary Care [...] PART A May 30, 2024 PART A [id number] WIGGLESWO RTH,STEWA RT PATIENT MEDICARE (WNR) MEDICARE (M) PART B May 30, 2024 PART B [id number] WIGGLESWO RTH,STEWA RT PATIENT [facility] 2017 SELE[facility] T RETIR ED May 16, 2018 [facility] [id number] [phone] WIGGLESWO RTH,STEWA RT PATIENT [facility] 2018 [employer] A Apr 01, 2017 [facility] [id number] WIGGLESWO RTH,STEWA RT PATIENT [facility] 2024 [facility] RETIR ED Apr 01, 2024 [facility] [id number] [phone] WIGGHERMILOJULIO RTHAMY RT PATIENT Selected Encounter This section includes the information on record at [place] for the Encounter. Date/Time Encounter Type Encounter Description Reason Provider Source Jun 05, 2024 09:30 AM EDU&TRN PT SELF-MGMT NQHP 1 NUTRITION/DIETETI CS-INDIVIDUAL ICD-10-CM E11.65 Type 2 diabetes mellitus with hyperglycemia REYMUNDO ANDREWS IHE Encounter Template Text not used by [place] Assessments - Encounter Diagnoses This section includes the primary and secondary diagnoses documented for the Encounter. Date/Time Primary/Secondary Diagnosis Diagnosis Name Provider Source Jun 11, 2024 07:55 AM PRIMARY Type 2 diabetes mellitus with hyperglycemia LEIGH ANDREWS [facility] Jun 11, 2024 07:55 AM SECONDARY Dietary counseling and surveillance LEIGH ANDREWS [facility] Plan of Treatment: Future Appointments (+ 6 months) and Future Tests (+/- 45 days) The Plan of Treatment section includes future care activities for the patient from all [place] [facility]. This section includes future appointments and future orders which are active, pending or scheduled. Future Appointments This section includes appointments that were scheduled to occur 6 months from the date of the Encounter, up to a maximum of 20 appointments. The data comes from all [place] treatment facilities. Appointment Date/Time Appointment Type Appointme nt Facility Name Jun 17, 2024 08:00 AM AMBULATORY - MEDICINE [facility] Jun 17, 2024 09:00 AM AMBULATORY - NONE [place] [facility] Jun 25, 2024 08:00 AM AMBULATORY - MEDICINE [facility] Jun 26, 2024 08:20 AM AMBULATORY - SURGERY [place] [facility]3] Jun 29, 2024 01:30 PM AMBULATORY - NONE [place] [facility]3] Jul 15, 2024 09:00 AM AM[facility]ULATORY - NONE [place] [facility] Jul 27, 2024 08:00 AM [facility] [place] [facility] Jul 29, 2024 01:00 PM [facility] August 03, 2024 07:00 AM [facility]ORY - NONE [place] [facility]3] Sep 23, 2024 10:00 AM AMBULATORY - MEDICINE [place] [facility]3] Nov 03, 2024 09:40 AM AMBULATORY - SURGERY [place] [facility]3] Active, Pending, and Scheduled Orders This section includes a listing of several types of active, pending, and scheduled orders, including clinic medications orders, diagnostic test orders, procedure orders and consult orders; where the start date of the order is 45 days before the date of the Encounter or 45 days after the date of theEncounter. The data comes from all [place] treatment facilities. Test Date/Time Test Type Test Details Facility Name Jun 26, 2024 09:07 AM Consult Order PAIN CLINI C ANESTHESIOLOGY/PAIN CD OUTPATIENT Cons Refrigerator [facility] Jul 15, 2024 12:00 AM Imaging - Ultrasou nd Order FNA BX W/ ULTRASND GDN,1ST [facility] Vital Signs: All taken on the encounter date This section contains inpatient and outpatient Vital Signs collected on the date of the Encounter. Date/Time Temperature Pulse Blood Pressure Respiratory Rate SP02 Pain Height Weight Body Mass Index Source Jun 05, 2024 09:43 AM 194 26 [place] [facility] Social History: Smoking Status (Most current) and Tobacco Use (All prior to encounter date) This section includes the most current, and the historical, smoking and tobacco- related health factors from the [place] facility where the Encounter took place. Current Smoking Status This section includes the most current smoking, or tobacco-related health factor, from the [place] facility where the Encounter took place. Date/Time Current Smoking Status Comment Facil ity Mar 16, 2024 10:30 AM VA-TOBACCO NEVER U SED CIGARETTES [facility] Tobacco Use History This section includes a history of the smoking, or tobacco-related health factors, that were collected on or before the date of the Encounter. The data comes from the [place] facility where the Encounter took place. Date/Time Smoking Status/Tobacco Use Comment F acility Mar 16, 2024 10:30 AM VA-TOBACCO NEVER U SED OTHER TYPE [facility] August 15, 2023 08:00 AM VA-TOBACCO NEVER USED [facility] Jun 11, 2022 08:30 AM VA-TOBACCO NEVER USED [facility] May 11, 2021 08:00 AM VA-TOBACCO FORMER USER [facility] May 11, 2021 08:00 AM VA-TOBACCO QUIT 15 YRS OR MORE [facility] Apr 04, 2020 08:30 AM VA-TOBACCO FORMER USER [facility] Apr 04, 2020 08:30 AM VA-TOBACCO QUIT 15 YRS OR MORE [facility] Mar 18, 2019 12:56 PM VA-TOBACCO FORMER USER [facility] Mar 18, 2019 12:56 PM VA-TOBACCO QUIT 5 TO < 15 YRS [facility] Radiology Reports: +/- 30 days of [...] the Encounter. The data comes from all [place] treatment facilities. Date/Time Radiology Report Provider Source Jun 29, 2024 12:58 PM U/S THYROID: KATE CARTER [id number] -1960 M Exm Date: JUN 29, 2024@12:58 Req Phys: MARTHA HENLEY Loc: X-RAY/MRI/DOROTHEA/NC (Req'g Loc Img Loc: ULTRASOUND Service: [place] [address] (Case [id number] COMPLETE) U/S THYROID (US Detailed) CPT:68938 Reason for Study: SEE CLINICAL HISTORY Clinical History: REASON FOR EXAM:Nodule/Lesion follow up PERTINENT PATIENT HISTORY: PROVIDER ExtPager# Report Status: Verified Date Reported: JUN 30, 2024 Date Verified: JUN 30, 2024 Swiss Type Screw Machine Operator E-Sig: Report: EXAMINATION: THYROID ULTRASOUND CLINICAL INDICATIONS: [...] Interpreting Staff: CHIN CASTILLO, Radiologist Verified by arc and gas welder for CHIN CASTILLO /CHIN LEES-[place] [facility] Jun 17, 2024 08:36 AM MRI C SPINE W/O CO NTRAST: KATE CARTER [id number] -1960 M Exm Date: JUN 17, 2024@08:36 Req Phys: MARTHA HENLEY [facility] (Req'g Lo Img Loc: [facility] Service: [place] [address] (Case [id number] COMPLETE) MRI C SPINE W/O CONTRAST (MRI Detailed) CPT:18514 Reason for Study: SEE CLINICAL HISTORY Clinical History: STATUS OF PLAIN FILMS:Done, exam date/impression above. MRI Screening (Required): IMPLANTED DEVICE DOCUMENTATION 03/11/2024 09:29 Local Title: IMPLANTED CARDIAC DEVICE Standard Title: CLINICAL WARNING Patient has an Implanted Cardiac Device. Cardiac Device Type: BIV ICD Field Nurse Case Manager: [facility] Device details: Generator - [employer], model [id number], SN [id number]. RA lead - [employer], model [id number], SN [id number]. RV lead - [employer], model [id number], SN [id number]. LV - [employer], model 1458QL, SN [id number]. Parameters: RA - threshold - 0.25v@0.5ms, 460 ohms, sensing - >5mV RV - threshold - 0.25v@0.5ms, 640 ohms, sensing - >12mV LV - threshold - 1.25v@0.5ms, 700 ohms. DFT's - were not assessed. Shock coil impedance - 73 ohms. Implant 03/10/2024 Dr. Mckinney Signed by: /es/ RUTHANN BARONE RN 03/11/2024 09:32 Does the have any Cardiac Implants? ICD Does the [place] have any implanted stimulators? None Does the have cochlear implants? No Does the [place] have Cerebral aneurysm clip(s)? No Does the [place] have any shrapnel? No If yes, where in your body? Please list other implants not listed above: MRI table has a weight limit of 551 lbs. [place]'s Weight: *198 lb [89.81 kg] (03/16/2024 10:02) Is this patient claustrophobic?: No REASON FOR EXAM: OTHER (provide detailed justification for your request) PERTINENT PATIENT HISTORY: Cervical radiculopathy Risk factors for GADOLINIUM NEPHROGENIC SYSTEMIC SCLEROSIS: Report Status: Verified Date Reported: JUN 17, 2024 Date Verified: JUN 17, 2024 Swiss Type Screw Machine Operator E-Sig: Report: KATE CARBONETYSHAWN 1960 EXAM: MRI C SPINE W/O CONTRAST [...] Staff: FATUMA GARCIA, Staff Physician Verified by arc and gas welder for FATUMA GARCIA /OCTAVIA GARCIA,FATUMA UNDERWOOD-CDD [facility] Encounter Notes: All associated encounter notes This section contains the clinical notes associated to the Encounter. Date/Time Encounter Note(s) Provider Source Jun 05, 2024 09:24 AM ENDOCRINOLOGY NOTE : LOCAL TITLE: DIABETES EDUCATION CDE NOTE STANDARD TITLE: ENDOCRINOLOGY NOTE DATE OF NOTE: JUN 05, 2024@09:24 ENTRY DATE: JUN 05, 2024@09:24:52 AUTHOR: LEIGH ANDREWS EXP COSIGNER: URGENCY: STATUS: COMPLETED Mr. Carter is here for DM Education- T2DM. Recent CGM start. ADCES 7 SELF-CARE BEHAVIORS: HEALTHY EATING: lunch:rye pempernicke bread pimento cheese from [employer] 2 slices of homeamde vension sausage dinner: [facility] 3 rolls, salad, sweet potato with butter Reviewed glucose values related to these meals. Reviewed CHO sources in these meals. BEING ACTIVE: eats breakfast at 10:30 or 11 drinks black coffee 1/2 bagel with peanut butter then switched to a rice cake MONITORING: Dexcom G7: Sharing synched. Accucheck Guide Me: has supplies Reviewed Dexcom Clarity reports with . 56% in range at this time. No issues with adhesive or irritation. TAKING MEDICATIONS: insulin glargine 24 units glipizide 20mg BID - takes half hour before he eats. metformin 1000mg BID Jardiance 10mg daily (HF) Is able to receite prescribed medications. HEALTHY COPING: No DM Distress. PLAN/GOALS: Continue CGM If High alarm sounds evaluate recent meal choices for CHO quantity. PRINTED MATERIALS: visit summary/goals FOLLOW UP: Mar 2025 [place] Verbalized understanding and is agreeable to plan of care. Time Spent: 60 mins /amando/ LEIGH ANDREWS RD, [facility] CLINICAL DIETITIAN/LOOP TACKER Signed: 06/11/2024 07:53 LEIGH ANDREWS [facility]
--- OUTSIDE RECORDS SUMMARY | 2024-07-14 06:49 | XMS_ITS | Encounter Summary ---
Author Name [facility] [place] [facility] [place] [facility] [place] [facility] [place] Address [address] [place] [id number] Care Team Providers Care Disaster Recovery Analyst Name Role Phone JOSUE JOOENEDINA Primary Care [...] PART A May 30, 2024 PART A [id number] WIGGLESWO RTH,STEWA RT PATIENT MEDICARE (WNR) MEDICARE (M) PART B May 30, 2024 PART B [id number] WIGGLESWO RTH,STEWA RT PATIENT [facility] 2017 SELEC T RETIR ED May 16, 2018 SELECT RETIRED [id number] WIGGLESWO RTH,STEWA RT PATIENT [facility] 2017 [employer] A Apr 01, 2017 DOD [id number] WIGGLESWO RTH,STEWA RT PATIENT [facility] 2024 PRIME RETIR ED Apr 01, 2024 PRIME RETIRED [id number] [phone] JAZMINE RTHAMY RT PATIENT Selected Encounter This section includes the information on record at [place] for the Encounter. 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 This section includes future appointments and future orders which are active, pending or scheduled. Future Appointments This section includes appointments that were scheduled to occur 6 months from the date of the Encounter, up to a maximum of 20 appointments. The data comes from all [place] treatment facilities. Appointment Date/Time Appointment Type Appointme nt Facility Name Mar 23, 2024 10:00 AM AMBULATORY - MEDICINE [place] [facility] Apr 08, 2024 08:15 AM AMBULATORY - MEDICINE [place] NGTON [facility] Apr 16, 2024 01:30 PM AMBULATORY - NONE [place] [facility] Apr 16, 2024 02:15 PM AMBULATORY - NONE [place] [facility] May 05, 2024 09:40 AM AMBULATORY - SURGERY [place] [facility] Jun 03, 2024 10:00 AM AMBULATORY - NONE [place] [facility] Jun 05, 2024 09:30 AM AMBULATORY - NONE [place] [facility] Jun 17, 2024 08:00 AM AMBULATORY - MEDICINE [place] NGTON [facility] Jun 17, 2024 09:00 AM AMBULATORY - NONE [place] Jun 25, 2024 08:00 AM AMBULATORY - MEDICINE [place] HAMM [facility] Jun 26, 2024 08:20 AM AMBULATORY - SURGERY [place] ULISES [facility] Jun 29, 2024 01:30 PM AMBULATORY - NONE [place] Nguyễn [facility] Jul 15, 2024 09:00 AM AMBULATORY - NONE [place] Jul 27, 2024 08:00 AM AMBULATORY - SURGERY [facility] [facility] Jul 29, 2024 01:00 PM AMBULATORY - MEDICINE [place] HAMM [facility] August 03, 2024 07:00 AM [facility] - NONE [facility] Lab Results: +/- 30 days of [...] Type Comment Mar 23, 2024 09:13 AM [facility] N HBSAB SERUM Specimen Type: SERUM [...] or chronic Hepatitis B infection. Ordering Provider: SHRUTHI HENLEY Report Released Date/Time: Mar 16, 2024 11:01 AM Reporting Lab: [address] [address] Performing Lab: [address] [address] HBSAB Nonreactive Nonreactive Mar 23, 2024 09:13 AM [facility] HBSAG S JOSE Specimen Type: [...] or chronic Hepatitis B infection. Ordering Provider: SHRUTHI HENLEY Report Released Date/Time: Mar 16, 2024 11:01 AM Reporting Lab: [address] [address] Performing Lab: [address] [address] HBSAG Nonreactive Nonreactive Mar 23, 2024 09:13 AM [facility] GLYCOHEMOGLOBIN BLOOD Specimen Type: BLOOD Comment: [place] guidelines for A1c interpretation: Glycemic control targets are based on Shared Decision Making between clinicians and patients. Criteria used to establish an A1c target recommendation can be found at https://www.[place].gov/qualityandpatientsafety/ and include the use of result accuracy [...] 8.73 and 9.27. Ref: https://ngsp.org/CAPdata.asp. The in-house [employer]-Bli[employer] D-100 analyzer has a historical CV <= 2%. Contact the laboratory for further performance characteristics of this assay. Ordering Provider: SHRUTHI HENLEY Report Released Date/Time: Mar 16, 2024 11:01 AM Reporting Lab: [address] [address] Performing Lab: [address] [address] GLYCOHEMOGLOBIN 8.2 H 4.4-6.4 Mar 23, 2024 09:13 AM [facility] PSA S JOSE Specimen Type: SERUM No comment entered. Ordering Provider: SHRUTHI HENLEY Report Released Date/Time: Mar 16, 2024 11:01 AM Reporting Lab: [address] [address] Performing Lab: [address] [address] PSA 1.538 ng/mL 0-3.999 Mar 23, 2024 09:13 AM [facility] LIPID PROFILE PLASMA Specimen Type: [...] or chronic Hepatitis B infection. Ordering Provider: SHRUTHI HENLEY Report Released Date/Time: Mar 16, 2024 11:01 AM Reporting Lab: [address] [address] Performing Lab: [address] [address] CHOLESTEROL 161 mg/dL 0-199 TRIGLYCERIDE 156 mg/dL H 0-149 HDL CHOLESTEROL 58 mg/dL 40-69 DIRECT LDL CHOL. 100 mg/dL 0-100 Mar 23, 2024 09:13 AM [facility] PANEL 5 PLASMA Specimen Type: [...] or chronic Hepatitis B infection. Ordering Provider: SHRUTHI HENLEY Report Released Date/Time: Mar 16, 2024 11:01 AM Reporting Lab: [facility] [address] [facility] [address] Performing Lab: [address] [address] CREATININE 1.34 mg/dL H 0.72-1.25 UREA NITROGEN [...] 23, 2024 09:13 AM [facility] B12 VITAMIN PLASMA Specimen Type: PLASM [...] of sample is too elevated. Ordering Provider: SHRUTHI HENLEY Report Released Date/Time: Mar 16, 2024 11:01 AM Reporting Lab: [address] [address] Performing Lab: [address] [address] B12 VITAMIN 518 pg/mL 213-816 Mar 23, 2024 09:13 AM [facility] TSH PLASMA Specimen Type: PLASM A Comment: [...] decrease <15 G5 Kidney failure Ordering Provider: SHRUTHI HENLEY Report Released Date/Time: Mar 16, 2024 11:01 AM Reporting Lab: [address] [address] Performing Lab: [address] [address] TSH 1.8877 m[IU]/mL 0.3500-4.9400 Mar 23, 2024 09:13 AM [facility] 25-OH VITAMIN D SERUM Specime n Type: SERUM Comment: The National Institutes of Health (NIH) recommendations state: <12 ng/mL - Deficient 20 - 50 ng/mL - Optimal Levels - adequate for most people. >50 ng/mL - Increased risk of hypercalciuria/other health problems - clinical correlation is required. These reference ranges represent clinical decision values rather than population-based reference values. Ordering Provider: SHRUTHI HENLEY Report Released Date/Time: Mar 16, 2024 11:01 AM Reporting Lab: [address] [address] Performing Lab: [address] [address] 25-OH VITAMIN D 51.2 ng/mL H 20.0-50.0 Mar 23, 2024 09:13 AM [facility] CBC/PLT BLOOD Specimen Type: BLOOD No comment entered. Ordering Provider: SHRUTHI HENLEY Report Released Date/Time: Mar 16, 2024 11:01 AM Reporting Lab: [address] [address] Performing Lab: [address] [address] WBC 6.5 10*3/uL 5.0-10.0 RBC 5.22 10*6/uL 4.6-6.2 HGB 14.3 g/dL 14.0-18.0 HCT 45.6 42.0-52.0 MCV 87.4 fL 80.0-94.0 MCH 27.4 pg 27.0-31.0 MCHC 31.4 g/dL L 32.0-36.0 PLT 180 10*3/uL 150-450 MPV 9.5 fL 9.0-13.1 RDW 15.6 11.0-16.0 NRBC 0.0 0.0-0.0 Mar 11, 2024 06:10 AM [facility] GLUCOSE-HAND MONITOR CAPILLARY Specime n Type: CAPILLARY Comment: Test performed by: [id number] Meter #: [id number] Ordering Provider: FELIBERTO MERINO Report Released Date/Time: Mar 11, 2024 06:27 AM Reporting Lab: [address] [address] Performing Lab: [address] [address] GLUCOSE-HAND MONITOR 170 mg/dL H 71-99 Mar 10, 2024 08:59 PM [facility] GLUCOSE-HAND MONITOR CAPILLARY Specime n Type: CAPILLARY Comment: Test performed by: [id number] Meter #: [id number] Ordering Provider: FELIBERTO MERINO Report Released Date/Time: Mar 10, 2024 09:52 PM Reporting Lab: [address] [address] Performing Lab: [address] [address] GLUCOSE-HAND MONITOR 260 mg/dL H Mar 10, 2024 05:47 PM [facility] GLUCOSE-HAND MONITOR CAPILLARY Specime n Type: CAPILLARY Comment: Test performed by: [id number] Meter #: [id number] Ordering Provider: FELIBERTO MERINO Report Released Date/Time: Mar 10, 2024 11:25 PM Reporting Lab: [address] [address] Performing Lab: [address] [address] GLUCOSE-HAND MONITOR 299 mg/dL H Mar 10, 2024 10:36 AM [facility] MRSA SURVL NARES DNA NARES Specime [...] Mar 05, 2024 10:58 AM Reporting Lab: [address] [address] Performing Lab: [address] [address] MRSA SURVL NARES DNA Negative Negative Mar 10, 2024 08:52 AM [facility] PANEL 1 PLASMA Specimen Type: PLASM [...] Mar 05, 2024 10:58 AM Reporting Lab: [address] [address] Performing Lab: [address] [address] CREATININE 1.36 mg/dL H 0.72-1.25 UREA NITROGEN 28 mg/dL H 9-25 GLUCOSE 137 mg/dL H 74-100 SODIUM 136 mmol/L 136-145 POTASSIUM 4.5 mmol/L 3.5-5.1 CHLORIDE 104 mmol/L 98-107 CO2 28 mmol/L 22-29 CALCIUM 10.0 mg/dL 8.4-10.2 ANION GAP 4 meq/L 3-19 eGFR (CKD-EPI) 58 Mar 10, 2024 08:51 AM [facility] CBC/PLT BLOOD Specimen Type: BLOOD No comment entered. Ordering Provider: FELIBERTO MERINO Report Released Date/Time: Mar 05, 2024 10:58 AM Reporting Lab: [address] [address] Performing Lab: [address] [address] WBC 5.6 10*3/uL 5.0-10.0 RBC 4.87 10*6/uL [...] Height Weight Body Mass Index Source Mar 16, 2024 10:02 AM 98.1 68 129/73 16 97 0 72 198 27 [place] [facility] Social History: Smoking Status (Most current) and Tobacco Use (All prior to encounter date) This section includes the most current, and the historical, smoking and tobacco- related health factors from the [facility] where the Encounter took place. Current Smoking Status This section includes the most current smoking, or tobacco-related health factor, from the [place] facility where the Encounter took place. Date/Time Current Smoking Status Comment Christofer villanueva Mar 16, 2024 10:30 AM VA-TOBACCO NEVER U SED OTHER TYPE [facility] Tobacco Use History This section includes a history of the smoking, or tobacco-related health factors, that were collected on or before the date of the Encounter. The data comes from the [place] facility where the Encounter took place. Date/Time Smoking Status/Tobacco Use Comment F acility Mar 16, 2024 10:30 AM VA-TOBACCO NEVER U SED OTHER TYPE [facility] August 15, 2023 08:00 AM VA-TOBACCO NEVER USED [facility] Jun 11, 2022 08:30 AM VA-TOBACCO NEVER USED [facility] May 11, 2021 08:00 AM VA-TOBACCO FORMER USER [facility] May 11, 2021 08:00 AM VA-TOBACCO QUIT 15 YRS OR MORE [facility] Apr 04, 2020 08:30 AM VA-TOBACCO FORMER USER [facility] Apr 04, 2020 08:30 AM VA-TOBACCO QUIT 15 YRS OR MORE [facility] Mar 18, 2019 12:56 PM VA-TOBACCO FORMER USER [facility] Mar 18, 2019 12:56 PM VA-TOBACCO QUIT 5 TO < 15 YRS [facility] Radiology Reports: +/- 30 days of [...] the Encounter. The data comes from all [facility] facilities. Date/Time Radiology Report Provider Source Mar 11, 2024 04:50 AM CHEST SINGLE(1) EW: KATE CARTER [id number] -[id number] M Exm Date: MAR 11, 2024@04:50 Req Phys: DOV TELLES Loc: 5-OBM/TEL/03-11-2024@08:53 Img Loc: CDD RADIOLOGY Service: [place] [address] (Case [id number] COMPLETE)CHEST SINGLE(1) VIEW (RAD Detailed) CPT:71289 Proc Modifiers : PORTABLE EXAM Reason for Study: POST EPS PROCEDURE Clinical History: Rule out PTX s/p BiV ICD Report Status: Verified Date Reported: MAR 11, 2024 Date Verified: MAR 11, 2024 Hr Recruiter E-Sig: Report: EXAMINATION: SINGLE VIEW CHEST CLINICAL [...] NO ALERT REQUIRED Primary Interpreting Staff: CHIN CASTILLO Radiologist Verified by associate drafter for CHIN CASTILLO /[facility] Mar 10, 2024 07:46 AM CUSTOM GARMENT DESIGNER - FLUORO UP TO 1 HOUR: RAFTYSHAWNKATE [id number] -[id number] M Exm Date: MAR 10, 2024@07:46 Req Phys: FELIBERTO MERINO Loc: CARDIAC CATH/OPT/CDD (Req'g Lo Img Loc: ANGIO/NEURO/INTERVENTIONAL Service: [place] [address] (Case [id number] COMPLETE) CUSTOM GARMENT DESIGNER - FLUORO UP TO 1 HOUR (ANI Detailed) CPT:37574 Reason for Study: BI-V-ICD Clinical History: BI-V-ICD Report Status: Verified Date Reported: Date Verified: MAR 10, 2024 Hr Recruiter E-Sig: Report: See Impression Impression: Hospital Mortician imaging capture for storage. Please see CPRS Hospital Mortician consults and notes in CPRS for final reporting and exam documentation. Primary Diagnostic Code: Primary Interpreting Staff: PHYS OTHER THAN PA RADIOL, Staff Physician Verified by associate drafter for PHYS OTHER THAN [facility] RADIOL /[facility] RADIOLOGIST,[facility] Encounter Notes: All associated encounter notes This section contains the clinical notes associated to the Encounter. Date/Time Encounter Note(s) Provider Source May 11, 2024 02:35 PM ADDENDUM: LOCAL TITLE: Addendum STANDARD TITLE: ADDENDUM DATE OF NOTE: MAY 11, 2024@14:35:55 ENTRY DATE: MAY 11, 2024@14:35:55 AUTHOR: RUTHANN PATTON COSIGNER: URGENCY: STATUS: COMPLETED Forwarding. Thank you. /amando/ RUTHANN PATTON PC Laborer RN-BC Signed: 05/11/2024 14:36 Receipt Acknowledged By: 05/11/2024 14:54 /es/ LISS Ingram RN quality improvement engineer --- Original Document --- 03/16/24 PC PROGRESS NOTE: Age-63 Chief complaint: f/u for chronic medical conditions HPI: Pt presents with his with a hx of CAD, DM2 dx in 2004, fatty liver, HTN, glaucoma, macular degeneration, L eye macular edema, B plantar fasciitis, B CTS, and neck pain s/p fusion. He did not tolerate gabapentin or lyrica due to dizziness. Pt had a fall in Jan 2020 landing on his R side and had incr neck pain. Patient reports [facility]DR[facility] Due to increasing neck pain, he requests pain clinic referral for ALEJANDRA. Patient is status post left heart catheterization ([facility]) on February 01, 2023 with NEUROLOGY TECHNOLOGIST of mid LAD treated 3.5 x 38 and 3.0 x 38 Xience GT, postdilated 4.0 and 3.5 NC trek charo-respectively. Nonflow-limiting RCA disease. LVEF 30% with anterior wall motion abnormality. Echo 08/2023 showed EF 27%. Patient underwent BiV ICD on 03/10/2024. Patient's home BP readings are ranging 107-220 in the morning and 138-313 in the evening. 1. cervical DDD - order cervical MRI and refer to pain clinic when completed 2. DM2 w/neuropathy - cont metformin 1000mg BID, glipizide 20mg BID, empagliflozin 10 mg, and lantus 17u; cont rosuvastatin 40mg and ezetimibe 10 mg; order Dexcom 3. CAD/ischemic CM/HTN w/CKD - s/p BiV ICD; cont Entresto, ECASA 81 mg, Plavix 75 mg, empagliflozin 10 mg, metoprolol succ 25 mg daily, rosuvastatin 40 mg, and spironolactone; no NSAID use; completed cardiac rehab 4. glaucoma/mac degen - ophthal recall 06/2024 5. L foot fibroma - s/p CSI 07/27/21; podiatry f/u 05/05/24 6. fatty liver - cont diet, exercise, wt loss and no ETOH use 7. R clavicular lipoma - no complaints at this time 8. HM - FIT negative 07/2023 Medical History: Active problems - Computerized Problem List is [...] fasciitis 9. Basal cell carcinoma of skin Surgical History: BiV ICD R plantar fibroma excision Apr 2018 R middle finger cyst excision Left eye laser surgery cervical surgery x 2 s/p fusion and disc replacement R inguinal hernia repair sinus surgery R clavicle fracture repair BCC excision (back) Right neck melanoma in situ, wide local excision, right neck, local advancement flap reconstruction Active Outpatient Medications (including Supplies): Active Outpatient Medications Status 1) ACCU-CHEK GUIDE (GLUCOSE) TEST STRIP USE 1 STRIP TO TEST ACTIVE BLOOD SUGAR DIRECTED 2) ACETAMINOPHEN 325MG TAB TAKE TWO TABLETS BY MOUTH TWICE A ACTIVE DAY NEEDED FOR PAIN - DO NOT [...] TWICE A DAY FOR ACTIVE DIABETES 9) INSULIN,GLARGINE-YFGN 100UNIT/ML *PEN* INJECT 17 UNITS UNDER ACTIVE THE SKIN DAILY -DISCARD PEN AFTER 28 DAYS OF USE Indication: FOR BLOOD SUGAR 10) METFORMIN HCL 500MG 24HR SA TAB [...] MOUTH DAILY ACTIVE Indication: FOR HEART FAILURE Active Non-VA Medications Status 1) Non-VA ASCORBIC ACID 500MG TAB 1000MG MOUTH DAILY ACTIVE 2) Non-VA CENTRUM SILVER TABLET 1 TABLET MOUTH DAILY ACTIVE 3) Non-VA MAGNESIUM OXIDE 420MG TAB 840MG MOUTH DAILY ACTIVE 20 Total Medications allergies:VANCOMYCIN, GABAPENTIN, PREGABALIN, SIMVASTATIN, ROSUVASTATIN Hx: [employer] [id number] Social Hx: lives in [place]; ; 1 son and 2 daughters; retired Smoking: quit 1979; prev use 1 ppd x 1 year ETOH: quit 01/2023; prev heavy use Illicit: denies Family Hx: Father: age 71; COPD Mother: age 84; ESRD PE: 198 lb [89.81 kg] (03/16/2024 10:02) 72 in [182.9 cm] (03/16/2024 10:02) Measurement DT BP 03/16/2024 10:02 129/73 68 (03/16/2024 10:02) BODY MASS INDEX - 26.9 PULSE OX: Measurement DT POx (L/MIN)(%) 03/16/2024 10:02 97 Gen: WN WD WM ENT: translucent TMs Pulm: B CTA; nl respiratory rate CV: RRR no M/R/G; no carotid bruits; no edema GI: NT/ND +BS; no HSM MSK: nl gait; no cyanosis or clubbing of nails; muscle strength 08/03 B UE & LE Psych: appropriate mood and affect; A&Ox3 ECHO - NONE FOUND Lipid Prof Gallito. date CHOL TRIG HDL LIPID PHLDL CHOLSERUM AP 08/15/23 08:51 116 77 43 PANEL 1 Gallito. date GLUCOSE BUN CREAT SODIUM K CHLOR CO2 03/10/24 08:52 137 H 28 H 1.36 H 136 4.5 104 28 The OBJECT CBC CUMULATIVE () was NOT found...Contact IRM. Collection DT Specimen Test Name Result Units Ref Range 08/15/2023 08:51 PLASMA!! TSH 1.6676 mIU/mL 0.3500 - 4.9400 !! Indicates COMMENTS AVAILABLE...Refer to Interim Lab Report. Z PROSTATIC ANTIGEN 08/15/23 08:51 2.148 01/08/23 10:19 1.449 Z GLYCOHEMOGLOBIN (HPLC) 08/15/23 08:51 7.8 H A/P: 1. CAD/HTN w/CKD - s/p BiV ICD; cont Entresto, ECASA 81 mg, Plavix 75 mg, empagliflozin 10 mg, metoprolol succ 25 mg daily, rosuvastatin 40 mg, and spironolactone; no NSAID use; completed cardiac rehab Follow up: 8 mos I spent 30 min today reviewing last visit notes, evaluating and managing the patients conditions, and documenting clinic information in health record. __ Preparing to see patient (tests, reviewing last progress note) _x_ Perform medically necessary Exam _x_ Order tests, procedures, medications _x_ Documenting clinical info in health record __ Independently interpreting results and communicating results to patient/caregiver ___ Refer and/or communicate with other providers regarding patient ___ Obtain/review separately obtained history ___ Placed consult MEDICATION RECONCILIATION: The Outpt Essential Med List for review (EMLR) was reviewed w/the pt and the pt declined an updated reconciled med list w/discrepancies corrected. The patient/caregiver verbalized understanding of the topics covered/discussed in today's visit. Patient/caregiver were given the opportunity to ask questions to MD. /amando/ Shruthi Henley MD Primary Care Physician Signed: 03/18/2024 17:03 03/23/2024 ADDENDUM STATUS: COMPLETED Please tell patient letter was mailed stating Your glycohemoglobin or 3-month diabetes lab increased from 7.8 to 8.2. Recommend increasing the Lantus/glargine to 20 units daily. Will repeat lab work on 05/05/2024 when another appointment is scheduled. Your creatinine or kidney lab remains elevated but stable at 1.34. You have not been vaccinated against hepatitis B. If agreeable, you can come to the clinic or call and schedule a nurse appointment for the hepatitis B vaccine. Other labs were normal/stable or within acceptable ranges. /amando/ Shruthi Henley MD Primary Care Physician Signed: 03/23/2024 10:35 Receipt Acknowledged By: 03/24/2024 08:53 /amando/ TORI CORDOVA Registered Nurse 03/24/2024 ADDENDUM STATUS: COMPLETED called see care man note Mar 24 2024 /amando/ TORI CORDOVA Registered Nurse Signed: 03/24/2024 08:54 03/30/2024 ADDENDUM STATUS: COMPLETED Ed Med Card Device Clini 06/17/2024@08:00 Cons Future X-ray/Mri/Fritz/Nc 06/17/2024@09:00 Non-count Called and spoke with to schedule appt with device clinic. [place] needs clearance on his [facility] ICD. In order to proceed w MRI appt same day. Mld appt ltr /amando/ ZANDRA DIOP Signed: 03/30/2024 16:32 Receipt Acknowledged By: 03/31/2024 06:49 /amando/ RUTHANN BARONE RN 05/11/2024 ADDENDUM STATUS: COMPLETED Please tell patient that his A1c decreased slightly from 8.2 to 8.0 (glucose 186). Recommend continuing metformin 1000mg BID, glipizide 20mg BID, empagliflozin 10 mg, and increasing lantus from 20 units to 24 units daily. Patient now has a Dexcom and should alert if readings are not primarily <150. /amando/ Shruthi Henley MD Primary Care Physician Signed: 05/11/2024 09:20 Receipt Acknowledged By: 05/11/2024 14:35 /amando/ RUTHANN PATTON PC Laborer RN-BC for TORI CORDOVA 05/11/2024 ADDENDUM STATUS: COMPLETED See 05/11/2024 Telephone Care Note. /es/ LISS Ingram RN quality improvement engineer Signed: 05/11/2024 14:54 RUTHANN PATTON [facility] May 11, 2024 09:15 AM ADDENDUM: LOCAL TITLE: Addendum STANDARD TITLE: ADDENDUM DATE OF NOTE: MAY 11, 2024@09:15 ENTRY DATE: MAY 11, 2024@09:15:01 AUTHOR: SHRUTHI HENLEY EXP COSIGNER: URGENCY: STATUS: COMPLETED Please tell patient that his A1c decreased slightly from 8.2 to 8.0 (glucose 186). Recommend continuing metformin 1000mg BID, glipizide 20mg BID, empagliflozin 10 mg, and increasing lantus from 20 units to 24 units daily. Patient now has a Dexcom and should alert if readings are not primarily <150. /amando/ Shruthi Henley MD Primary Care Physician Signed: 05/11/2024 09:20 Receipt Acknowledged By: 05/11/2024 14:35 /amando/ RUTHANN PATTON PC Laborer RN-BC for TORI CORDOVA --- Original Document --- 03/16/24 PC PROGRESS NOTE: Age-63 Chief complaint: f/u for chronic medical conditions HPI: Pt presents with his with a hx of CAD, DM2 dx in 2004, fatty liver, HTN, glaucoma, macular degeneration, L eye macular edema, B plantar fasciitis, B CTS, and neck pain s/p fusion. He did not tolerate gabapentin or lyrica due to dizziness. Pt had a fall in Jan 2020 landing on his R side and had incr neck pain. Patient reports having cervical ALEJANDR[facility] Due to increasing neck pain, he requests pain clinic referral for ALEJANDRA. Patient is status post left heart catheterization ([facility]) on February 01, 2023 with NEUROLOGY TECHNOLOGIST of mid LAD treated 3.5 x 38 and 3.0 x 38 Xience GT, postdilated 4.0 and 3.5 NC trek charo-respectively. Nonflow-limiting RCA disease. LVEF 30% with anterior wall motion abnormality. Echo 08/2023 showed EF 27%. Patient underwent BiV ICD on 03/10/2024. Patient's home BP readings are ranging 107-220 in the morning and 138-313 in the evening. 1. cervical DDD - order cervical MRI and refer to pain clinic when completed 2. DM2 w/neuropathy - cont metformin 1000mg BID, glipizide 20mg BID, empagliflozin 10 mg, and lantus 17u; cont rosuvastatin 40mg and ezetimibe 10 mg; order Dexcom 3. CAD/ischemic CM/HTN w/CKD - s/p BiV ICD; cont Entresto, ECASA 81 mg, Plavix 75 mg, empagliflozin 10 mg, metoprolol succ 25 mg daily, rosuvastatin 40 mg, and spironolactone; no NSAID use; completed cardiac rehab 4. glaucoma/mac degen - ophthal recall 06/2024 5. L foot fibroma - s/p CSI 07/27/21; podiatry f/u 05/05/24 6. fatty liver - cont diet, exercise, wt loss and no ETOH use 7. R clavicular lipoma - no complaints at this time 8. HM - FIT negative 07/2023 Medical History: Active problems - Computerized Problem List is [...] fasciitis 9. Basal cell carcinoma of skin Surgical History: BiV ICD R plantar fibroma excision Apr 2018 R middle finger cyst excision Left eye laser surgery cervical surgery x 2 s/p fusion and disc replacement R inguinal hernia repair sinus surgery R clavicle fracture repair BCC excision (back) Right neck melanoma in situ, wide local excision, right neck, local advancement flap reconstruction Active Outpatient Medications (including Supplies): Active Outpatient Medications Status 1) ACCU-CHEK GUIDE (GLUCOSE) TEST STRIP USE 1 STRIP TO TEST ACTIVE BLOOD SUGAR DIRECTED 2) ACETAMINOPHEN 325MG TAB TAKE TWO TABLETS BY MOUTH TWICE A ACTIVE DAY NEEDED FOR PAIN - DO NOT [...] TWICE A DAY FOR ACTIVE DIABETES 9) INSULIN,GLARGINE-YFGN 100UNIT/ML *PEN* INJECT 17 UNITS UNDER ACTIVE THE SKIN DAILY -DISCARD PEN AFTER 28 DAYS OF USE Indication: FOR BLOOD SUGAR 10) METFORMIN HCL 500MG 24HR SA TAB [...] MOUTH DAILY ACTIVE Indication: FOR HEART FAILURE Active Non-VA Medications Status 1) Non-VA ASCORBIC ACID 500MG TAB 1000MG MOUTH DAILY ACTIVE 2) Non-VA CENTRUM SILVER TABLET 1 TABLET MOUTH DAILY ACTIVE 3) Non-VA MAGNESIUM OXIDE 420MG TAB 840MG MOUTH DAILY ACTIVE 20 Total Medications allergies:VANCOMYCIN, GABAPENTIN, PREGABALIN, SIMVASTATIN, ROSUVASTATIN Hx: [employer] [id number] Social Hx: lives in [place]; ; 1 son and 2 daughters; retired Smoking: quit 1979; prev use 1 ppd x 1 year ETOH: quit 01/2023; prev heavy use Illicit: denies Family Hx: Father: age 71; COPD Mother: age 84; ESRD PE: 198 lb [89.81 kg] (03/16/2024 10:02) 72 in [182.9 cm] (03/16/2024 10:02) Measurement DT BP 03/16/2024 10:02 129/73 68 (03/16/2024 10:02) BODY MASS INDEX - 26.9 PULSE OX: Measurement DT POx (L/MIN)(%) 03/16/2024 10:02 97 Gen: WN WD WM ENT: translucent TMs Pulm: B CTA; nl respiratory rate CV: RRR no M/R/G; no carotid bruits; no edema GI: NT/ND +BS; no HSM MSK: nl gait; no cyanosis or clubbing of nails; muscle strength 5/5 B UE & LE Psych: appropriate mood and affect; A&Ox3 ECHO - NONE FOUND Lipid Prof Gallito. date CHOL TRIG HDL LIPID PHLDL CHOLSERUM AP 08/15/23 08:51 116 77 43 PANEL 1 Gallito. date GLUCOSE BUN CREAT SODIUM K CHLOR CO2 03/10/24 08:52 137 H 28 H 1.36 H 136 4.5 104 28 The OBJECT CBC CUMULATIVE (51Y) was NOT found...Contact IRM. Collection DT Specimen Test Name Result Units Ref Range 08/15/2023 08:51 PLASMA!! TSH 1.6676 mIU/mL 0.3500 - 4.9400 !! Indicates COMMENTS AVAILABLE...Refer to Interim Lab Report. Z PROSTATIC ANTIGEN 08/15/23 08:51 2.148 01/08/23 10:19 1.449 Z GLYCOHEMOGLOBIN (HPLC) 08/15/23 08:51 7.8 H A/P: 1. CAD/HTN w/CKD - s/p BiV ICD; cont Entresto, ECASA 81 mg, Plavix 75 mg, empagliflozin 10 mg, metoprolol succ 25 mg daily, rosuvastatin 40 mg, and spironolactone; no NSAID use; completed cardiac rehab Follow up: 8 mos I spent 30 min today reviewing last visit notes, evaluating and managing the patients conditions, and documenting clinic information in health record. __ Preparing to see patient (tests, reviewing last progress note) _x_ Perform medically necessary Exam _x_ Order tests, procedures, medications _x_ Documenting clinical info in health record __ Independently interpreting results and communicating results to patient/caregiver ___ Refer and/or communicate with other providers regarding patient ___ Obtain/review separately obtained history ___ Placed consult MEDICATION RECONCILIATION: The Outpt Essential Med List for review (EMLR) was reviewed w/the pt and the pt declined an updated reconciled med list w/discrepancies corrected. The patient/caregiver verbalized understanding of the topics covered/discussed in today's visit. Patient/caregiver were given the opportunity to ask questions to . /amando/ Shruthi Henley MD Primary Care Physician Signed: 03/18/2024 17:03 03/23/2024 ADDENDUM STATUS: COMPLETED Please tell patient letter was mailed stating Your glycohemoglobin or 3-month diabetes lab increased from 7.8 to 8.2. Recommend increasing the Lantus/glargine to 20 units daily. Will repeat lab work on 05/05/2024 when another appointment is scheduled. Your creatinine or kidney lab remains elevated but stable at 1.34. You have not been vaccinated against hepatitis B. If agreeable, you can come to the clinic or call and schedule a nurse appointment for the hepatitis B vaccine. Other labs were normal/stable or within acceptable ranges. /amando/ Shruthi Henley MD Primary Care Physician Signed: 03/23/2024 10:35 Receipt Acknowledged By: 03/24/2024 08:53 /amando/ TORI CORDOVA Registered Nurse 03/24/2024 ADDENDUM STATUS: COMPLETED called see pc care man note Mar 24 2024 /amando/ TORI CORDOVA Registered Nurse Signed: 03/24/2024 08:54 03/30/2024 ADDENDUM STATUS: COMPLETED Ed Med Card Device Clini 06/17/2024@08:00 Cons Future X-ray/Mri/Fritz/Nc 06/17/2024@09:00 Non-count Called and spoke with to schedule appt with device clinic. [place] needs clearance on his [facility] ICD. In order to proceed w MRI appt same day. Mld appt ltr /amando/ ZANDRA DIOP Signed: 03/30/2024 16:32 Receipt Acknowledged By: 03/31/2024 06:49 /amando/ RUTHANN BARONE RN 05/11/2024 ADDENDUM STATUS: COMPLETED Forwarding. Thank you. /amando/ RUTHANN PATTON PC Laborer RN- Signed: 05/11/2024 14:36 SHRUTHI HENLEY [facility] Mar 30, 2024 04:28 PM ADDENDUM: LOCAL TITLE: Addendum STANDARD TITLE: ADDENDUM DATE OF NOTE: MAR 30, 2024@16:28:08 ENTRY DATE: MAR 30, 2024@16:28:09 AUTHOR: ZANDRA DIOP COSIGNER: URGENCY: STATUS: COMPLETED Ed Med Card Device Clini 06/17/2024@08:00 Cons Future X-ray/Mri/Fritz/Nc 06/17/2024@09:00 Non-count Called and spoke with to schedule appt with device clinic. needs clearance on his [facility] ICD. In order to proceed w MRI appt same day. Mld appt ltr /es/ ZANDRA N. CHIKIS Signed: 03/30/2024 16:32 Receipt Acknowledged By: 03/31/2024 06:49 /amando/ RUTHANN BARONE RN --- Original Document --- 03/16/24 PC PROGRESS NOTE: Age-63 Chief complaint: f/u for chronic medical conditions HPI: Pt presents with his with a hx of CAD, DM2 dx in 2004, fatty liver, HTN, glaucoma, macular degeneration, L eye macular edema, B plantar fasciitis, B CTS, and neck pain s/p fusion. He did not tolerate gabapentin or lyrica due to dizziness. Pt had a fall in Jan 2020 landing on his R side and had incr neck pain. Patient reports [facility] Due to increasing neck pain, he requests pain clinic referral for ALEJANDRA. Patient is status post left heart catheterization ([facility]) on February 01, 2023 with NEUROLOGY TECHNOLOGIST of mid LAD treated 3.5 x 38 and 3.0 x 38 Xience GT, postdilated 4.0 and 3.5 NC trek charo-respectively. Nonflow-limiting RCA disease. LVEF 30% with anterior wall motion abnormality. Echo 08/2023 showed EF 27%. Patient underwent BiV ICD on 03/10/2024. Patient's home BP readings are ranging 107-220 in the morning and 138-313 in the evening. 1. cervical DDD - order cervical MRI and refer to pain clinic when completed 2. DM2 w/neuropathy - cont metformin 1000mg BID, glipizide 20mg BID, empagliflozin 10 mg, and lantus 17u; cont rosuvastatin 40mg and ezetimibe 10 mg; order Dexcom 3. CAD/ischemic CM/HTN w/CKD - s/p BiV ICD; cont Entresto, ECASA 81 mg, Plavix 75 mg, empagliflozin 10 mg, metoprolol succ 25 mg daily, rosuvastatin 40 mg, and spironolactone; no NSAID use; completed cardiac rehab 4. glaucoma/mac degen - ophthal recall 06/2024 5. L foot fibroma - s/p CSI 07/27/21; podiatry f/u 05/05/24 6. fatty liver - cont diet, exercise, wt loss and no ETOH use 7. R clavicular lipoma - no complaints at this time 8. HM - FIT negative 07/2023 Medical History: Active problems - Computerized Problem List is [...] fasciitis 9. Basal cell carcinoma of skin Surgical History: BiV ICD R plantar fibroma excision Apr 2018 R middle finger cyst excision Left eye laser surgery cervical surgery x 2 s/p fusion and disc replacement R inguinal hernia repair sinus surgery R clavicle fracture repair BCC excision (back) Right neck melanoma in situ, wide local excision, right neck, local advancement flap reconstruction Active Outpatient Medications (including Supplies): Active Outpatient Medications Status 1) ACCU-CHEK GUIDE (GLUCOSE) TEST STRIP USE 1 STRIP TO TEST ACTIVE BLOOD SUGAR DIRECTED 2) ACETAMINOPHEN 325MG TAB TAKE TWO TABLETS BY MOUTH TWICE A ACTIVE DAY NEEDED FOR PAIN - DO NOT [...] TWICE A DAY FOR ACTIVE DIABETES 9) INSULIN,GLARGINE-YFGN 100UNIT/ML *PEN* INJECT 17 UNITS UNDER ACTIVE THE SKIN DAILY -DISCARD PEN AFTER 28 DAYS OF USE Indication: FOR BLOOD SUGAR 10) METFORMIN HCL 500MG 24HR SA TAB [...] MOUTH DAILY ACTIVE Indication: FOR HEART FAILURE Active Non-VA Medications Status 1) Non-VA ASCORBIC ACID 500MG TAB 1000MG MOUTH DAILY ACTIVE 2) Non-VA CENTRUM SILVER TABLET 1 TABLET MOUTH DAILY ACTIVE 3) Non-VA MAGNESIUM OXIDE 420MG TAB 840MG MOUTH DAILY ACTIVE 20 Total Medications allergies:VANCOMYCIN, GABAPENTIN, PREGABALIN, SIMVASTATIN, ROSUVASTATIN Hx: [employer] [id number] Social Hx: lives in [place]; ; 1 son and 2 daughters; retired Smoking: quit 1979; prev use 1 ppd x 1 year ETOH: quit 01/2023; prev heavy use Illicit: denies Family Hx: Father: age 71; COPD Mother: age 84; ESRD PE: 198 lb [89.81 kg] (03/16/2024 10:02) 72 in [182.9 cm] (03/16/2024 10:02) Measurement DT BP 03/16/2024 10:02 129/73 68 (03/16/2024 10:02) BODY MASS INDEX - 26.9 PULSE OX: Measurement DT POx (L/MIN)(%) 03/16/2024 10:02 97 Gen: WN WD WM ENT: translucent TMs Pulm: B CTA; nl respiratory rate CV: RRR no M/R/G; no carotid bruits; no edema GI: NT/ND +BS; no HSM MSK: nl gait; no cyanosis or clubbing of nails; muscle strength 08/03 B UE & LE Psych: appropriate mood and affect; A&Ox3 ECHO - NONE FOUND Lipid Prof Gallito. date CHOL TRIG HDL LIPID PHLDL CHOLSERUM AP 08/15/23 08:51 116 77 43 PANEL 1 Gallito. date GLUCOSE BUN CREAT SODIUM K CHLOR CO2 03/10/24 08:52 137 H 28 H 1.36 H 136 4.5 104 28 The OBJECT CBC CUMULATIVE (07/30Y) was NOT found...Contact IRM. Collection DT Specimen Test Name Result Units Ref Range 08/15/2023 08:51 PLASMA!! TSH 1.6676 mIU/mL 0.3500 - 4.9400 !! Indicates COMMENTS AVAILABLE...Refer to Interim Lab Report. Z PROSTATIC ANTIGEN 08/15/23 08:51 2.148 01/08/23 10:19 1.449 Z GLYCOHEMOGLOBIN (HPLC) 08/15/23 08:51 7.8 H A/P: 1. CAD/HTN w/CKD - s/p BiV ICD; cont Entresto, ECASA 81 mg, Plavix 75 mg, empagliflozin 10 mg, metoprolol succ 25 mg daily, rosuvastatin 40 mg, and spironolactone; no NSAID use; completed cardiac rehab Follow up: 8 mos I spent 30 min today reviewing last visit notes, evaluating and managing the patients conditions, and documenting clinic information in health record. __ Preparing to see patient (tests, reviewing last progress note) _x_ Perform medically necessary Exam _x_ Order tests, procedures, medications _x_ Documenting clinical info in health record __ Independently interpreting results and communicating results to patient/caregiver ___ Refer and/or communicate with other providers regarding patient ___ Obtain/review separately obtained history ___ Placed consult MEDICATION RECONCILIATION: The Outpt Essential Med List for review (EMLR) was reviewed w/the pt and the pt declined an updated reconciled med list w/discrepancies corrected. The patient/caregiver verbalized understanding of the topics covered/discussed in today's visit. Patient/caregiver were given the opportunity to ask questions to MD. /lauryn Henley MD Primary Care Physician Signed: 03/18/2024 17:03 03/23/2024 ADDENDUM STATUS: COMPLETED Please tell patient letter was mailed stating Your glycohemoglobin or 3-month diabetes lab increased from 7.8 to 8.2. Recommend increasing the Lantus/glargine to 20 units daily. Will repeat lab work on 05/05/2024 when another appointment is scheduled. Your creatinine or kidney lab remains elevated but stable at 1.34. You have not been vaccinated against hepatitis B. If agreeable, you can come to the clinic or call and schedule a nurse appointment for the hepatitis B vaccine. Other labs were normal/stable or within acceptable ranges. /lauryn Henley MD Primary Care Physician Signed: 03/23/2024 10:35 Receipt Acknowledged By: 03/24/2024 08:53 /amando/ TORI CORDOVA Registered Nurse 03/24/2024 ADDENDUM STATUS: COMPLETED called see care man note Mar 24 2024 /lauryn CORDOVA Registered Nurse Signed: 03/24/2024 08:54 ZANDRA DIOP [facility] Mar 23, 2024 10:35 AM ADDENDUM: LOCAL TITLE: Addendum STANDARD TITLE: ADDENDUM DATE OF NOTE: MAR 23, 2024@10:35:33 ENTRY DATE: MAR 23, 2024@10:35:35 AUTHOR: SHRUTHI HENLEY EXP COSIGNER: URGENCY: STATUS: COMPLETED Please tell patient letter was mailed stating Your glycohemoglobin or 3-month diabetes lab increased from 7.8 to 8.2. Recommend increasing the Lantus/glargine to 20 units daily. Will repeat lab work on 05/05/2024 when another appointment is scheduled. Your creatinine or kidney lab remains elevated but stable at 1.34. You have not been vaccinated against hepatitis B. If agreeable, you can come to the clinic or call and schedule a nurse appointment for the hepatitis B vaccine. Other labs were normal/stable or within acceptable ranges. /amando/ Shruthi Henley MD Primary Care Physician Signed: 03/23/2024 10:35 Receipt Acknowledged By: 03/24/2024 08:53 /amando/ TORI CORDOVA Registered Nurse --- Original Document --- 03/16/24 PC PROGRESS NOTE: Age-63 Chief complaint: f/u for chronic medical conditions HPI: Pt presents with his with a hx of CAD, DM2 dx in 2004, fatty liver, HTN, glaucoma, macular degeneration, L eye macular edema, B plantar fasciitis, B CTS, and neck pain s/p fusion. He did not tolerate gabapentin or lyrica due to dizziness. Pt had a fall in Jan 2020 landing on his R side and had incr neck pain. Patient reports [facility]DR[facility] Due to increasing neck pain, he requests pain clinic referral for ALEJANDRA. Patient is status post left heart catheterization ([facility]) on February 01, 2023 with NEUROLOGY TECHNOLOGIST of mid LAD treated 3.5 x 38 and 3.0 x 38 Xience GT, postdilated 4.0 and 3.5 NC trek charo-respectively. Nonflow-limiting RCA disease. LVEF 30% with anterior wall motion abnormality. Echo 08/2023 showed EF 27%. Patient underwent BiV ICD on 03/10/2024. Patient's home BP readings are ranging 107-220 in the morning and 138-313 in the evening. 1. cervical DDD - order cervical MRI and refer to pain clinic when completed 2. DM2 w/neuropathy - cont metformin 1000mg BID, glipizide 20mg BID, empagliflozin 10 mg, and lantus 17u; cont rosuvastatin 40mg and ezetimibe 10 mg; order Dexcom 3. CAD/ischemic CM/HTN w/CKD - s/p BiV ICD; cont Entresto, ECASA 81 mg, Plavix 75 mg, empagliflozin 10 mg, metoprolol succ 25 mg daily, rosuvastatin 40 mg, and spironolactone; no NSAID use; completed cardiac rehab 4. glaucoma/mac degen - ophthal recall 06/2024 5. L foot fibroma - s/p CSI 07/27/21; podiatry f/u 05/05/24 6. fatty liver - cont diet, exercise, wt loss and no ETOH use 7. R clavicular lipoma - no complaints at this time 8. HM - FIT negative 07/2023 Medical History: Active problems - Computerized Problem List is [...] fasciitis 9. Basal cell carcinoma of skin Surgical History: BiV ICD R plantar fibroma excision Apr 2018 R middle finger cyst excision Left eye laser surgery cervical surgery x 2 s/p fusion and disc replacement R inguinal hernia repair sinus surgery R clavicle fracture repair BCC excision (back) Right neck melanoma in situ, wide local excision, right neck, local advancement flap reconstruction Active Outpatient Medications (including Supplies): Active Outpatient Medications Status 1) ACCU-CHEK GUIDE (GLUCOSE) TEST STRIP USE 1 STRIP TO TEST ACTIVE BLOOD SUGAR DIRECTED 2) ACETAMINOPHEN 325MG TAB TAKE TWO TABLETS BY MOUTH TWICE A ACTIVE DAY NEEDED FOR PAIN - DO NOT [...] TWICE A DAY FOR ACTIVE DIABETES 9) INSULIN,GLARGINE-YFGN 100UNIT/ML *PEN* INJECT 17 UNITS UNDER ACTIVE THE SKIN DAILY -DISCARD PEN AFTER 28 DAYS OF USE Indication: FOR BLOOD SUGAR 10) METFORMIN HCL 500MG 24HR SA TAB [...] MOUTH DAILY ACTIVE Indication: FOR HEART FAILURE Active Non-VA Medications Status 1) Non-VA ASCORBIC ACID 500MG TAB 1000MG MOUTH DAILY ACTIVE 2) Non-VA CENTRUM SILVER TABLET 1 TABLET MOUTH DAILY ACTIVE 3) Non-VA MAGNESIUM OXIDE 420MG TAB 840MG MOUTH DAILY ACTIVE 20 Total Medications allergies:VANCOMYCIN, GABAPENTIN, PREGABALIN, SIMVASTATIN, ROSUVASTATIN Hx: [employer] [id number] Social Hx: lives in [place]; ; 1 son and 2 daughters; retired Smoking: quit 1979; prev use 1 ppd x 1 year ETOH: quit 01/2023; prev heavy use Illicit: denies Family Hx: Father: age 71; COPD Mother: age 84; ESRD PE: 198 lb [89.81 kg] (03/16/2024 10:02) 72 in [182.9 cm] (03/16/2024 10:02) Measurement DT BP 03/16/2024 10:02 129/73 68 (03/16/2024 10:02) BODY MASS INDEX - 26.9 PULSE OX: Measurement DT POx (L/MIN)(%) 03/16/2024 10:02 97 Gen: WN WD WM ENT: translucent TMs Pulm: B CTA; nl respiratory rate CV: RRR no M/R/G; no carotid bruits; no edema GI: NT/ND +BS; no HSM MSK: nl gait; no cyanosis or clubbing of nails; muscle strength 08/03 B UE & LE Psych: appropriate mood and affect; A&Ox3 ECHO - NONE FOUND Lipid Prof Gallito. date CHOL TRIG HDL LIPID PHLDL CHOLSERUM AP 08/15/23 08:51 116 77 43 PANEL 1 Gallito. date GLUCOSE BUN CREAT SODIUM K CHLOR CO2 03/10/24 08:52 137 H 28 H 1.36 H 136 4.5 104 28 The OBJECT CBC CUMULATIVE (07/30Y) was NOT found...Contact IRM. Collection DT Specimen Test Name Result Units Ref Range 08/15/2023 08:51 PLASMA!! TSH 1.6676 mIU/mL 0.3500 - 4.9400 !! Indicates COMMENTS AVAILABLE...Refer to Interim Lab Report. Z PROSTATIC ANTIGEN 08/15/23 08:51 2.148 01/08/23 10:19 1.449 Z GLYCOHEMOGLOBIN (HPLC) 08/15/23 08:51 7.8 H A/P: 1. CAD/HTN w/CKD - s/p BiV ICD; cont Entresto, ECASA 81 mg, Plavix 75 mg, empagliflozin 10 mg, metoprolol succ 25 mg daily, rosuvastatin 40 mg, and spironolactone; no NSAID use; completed cardiac rehab Follow up: 8 mos I spent 30 min today reviewing last visit notes, evaluating and managing the patients conditions, and documenting clinic information in health record. __ Preparing to see patient (tests, reviewing last progress note) _x_ Perform medically necessary Exam _x_ Order tests, procedures, medications _x_ Documenting clinical info in health record __ Independently interpreting results and communicating results to patient/caregiver ___ Refer and/or communicate with other providers regarding patient ___ Obtain/review separately obtained history ___ Placed consult MEDICATION RECONCILIATION: The Outpt Essential Med List for review (EMLR) was reviewed w/the pt and the pt declined an updated reconciled med list w/discrepancies corrected. The patient/caregiver verbalized understanding of the topics covered/discussed in today's visit. Patient/caregiver were given the opportunity to ask questions to . /amando/ Shruthi Henley MD Primary Care Physician Signed: 03/18/2024 17:03 03/24/2024 ADDENDUM STATUS: UNSIGNED You may not VIEW this UNSIGNED Addendum. SHRUTHI HENLEY [facility] Mar 23, 2024 10:29 AM PRIMARY CARE LETTE RS: LOCAL TITLE: PC LETTER TEST RESULTS STANDARD TITLE: PRIMARY CARE LETTERS DATE OF NOTE: MAR 23, 2024@10:29 ENTRY DATE: MAR 23, 2024@10:29:38 AUTHOR: SHRUTHI HENLEY EXP COSIGNER: URGENCY: STATUS: COMPLETED [facility] [address] [place] [address] Mr. LOVE LIBRADO CARTER [address] [place] [address] MAR 23, 2024 Dear KATE LIBRADO CARTER Your glycohemoglobin or 3-month diabetes lab increased from 7.8 to 8.2. Recommend increasing the Lantus/glargine to 20 units daily. Will repeat lab work on 05/05/2024 when another appointment is scheduled. Your creatinine or kidney lab remains elevated but stable at 1.34. You have not been vaccinated against hepatitis B. If agreeable, you can come to the clinic or call and schedule a nurse appointment for the hepatitis B vaccine. Other labs were normal/stable or within acceptable ranges. Please call us if you have questions or problems. You can reach us at (toll free number) or [phone] (local number). If you are enrolled in [employer], and utilize those services, you may prefer to contact us by secure message. Thank you for your service to our Country. We are honored to be able to provide medical care to you. Recent labwork Collection DT Specimen Test Name Result Units Ref Range 03/23/2024 09:14 BLOOD !! GLYCOHEMOGLOBIN 8.2 H % 4.4 - 6.4 03/23/2024 09:13 BLOOD WBC 6.5 K/cmm 5.0 - 10.0 RBC 5.22 M/cmm 4.6 - 6.2 HGB 14.3 g/dL 14.0 - 18.0 HCT 45.6 % 42.0 - 52.0 MCV 87.4 fL 80.0 - 94.0 MCH 27.4 pg 27.0 - 31.0 MCHC 31.4 L g/dL 32.0 - 36.0 RDW 15.6 % 11.0 - 16.0 PLT 180 K/cmm 150 - 450 MPV 9.5 fL 9.0 - 13.1 NRBC 0.0 % 0.0 - 0.0 03/23/2024 09:13 PLASMA!! CHOLESTEROL 161 mg/dL 0 - 199 !! TRIGLYCERIDE 156 H mg/dL 0 - 149 !! HDL CHOLESTEROL 58 mg/dL 40 - 69 !! DIRECT LDL CHOL. 100 mg/dL 0 - 100 !! SODIUM 138 mmol/L 136 - 145 !! POTASSIUM 4.9 mmol/L 3.5 - 5.1 !! CHLORIDE 100 mmol/L 98 - 107 !! CO2 28 mmol/L 22 - 29 !! ANION GAP 10.0 mEq/L 3 - 19 !! GLUCOSE 169 H mg/dL 74 - 100 !! UREA NITROGEN 26 H mg/dL 9 - 25 !! CREATININE 1.34 H mg/dL 0.72 - 1.25 !! eGFR (CKD-EPI) 59 SEE EVAL !! CALCIUM 10.1 mg/dL 8.4 - 10.2 !! TOTAL PROTEIN 7.1 g/dL 6.4 - 8.3 !! ALBUMIN 4.4 g/dL 3.5 - 5.2 !! TOTAL BILIRUBIN 0.5 mg/dL 0.2 - 1.2 !! AST 27 U/L 5 - 34 !! ALT 26 U/L 0 - 55 !! ALK PHOS 67 U/L 40 - 150 !! B12 VITAMIN 518 pg/mL 213 - 816 !! TSH 1.8877 mIU/mL 0.3500 - 4.9400 03/23/2024 09:13 SERUM !! PSA 1.538 ng/mL 0 - 3.999 !! 25-OH VITAMIN D 51.2 H ng/mL 20.0 - 50.0 03/23/2024 09:13 SERUM !! HBSAG Nonreactive Ref: Nonreactive !! HBSAB Nonreactive Ref: Nonreactive Sincerely, /es/ Shruthi Henley MD Primary Care Physician Patient Record Number [id number] SHRUTHI HENLEY [facility] Mar 18, 2024 05:03 PM MEDICATION MGT NOT E: LOCAL TITLE: OUTPATIENT ESSENTIAL MEDICATION LIST FOR REVIEW (EM STANDARD TITLE: MEDICATION MGT NOTE DATE OF NOTE: MAR 18, 2024@17:03 ENTRY DATE: MAR 18, 2024@17:03:29 AUTHOR: SHRUTHI HENLEY EXP COSIGNER: URGENCY: STATUS: COMPLETED Review of medications include: Patient allergies (Remote and Local) and active and pending prescriptions dispensed from this PA (local) and dispensed from another PA or [facility] facility (remote and pending) as well as local inpatient orders (pending and active) and clinic medications (IMOs), locally documented non-VA medications and local prescriptions that have or been discontinued in the past 90 days. With the exception of Allergies, if a category is not listed below, it means there were no relevant medications for the patient. ALLERGIES: VANCOMYCIN, GABAPENTIN, PREGABALIN, SIMVASTATIN, ROSUVASTATIN FACILITY ALLERGY/ADR -------- 581^[facility]^581 VANCOMYCIN ACTIVE OUTPATIENT MEDICATIONS LOCAL/REMOTE ACCU-CHEK GUIDE (GLUCOSE) TEST STRIP Directions: USE 1 STRIP TO TEST BLOOD SUGAR DIRECTED Quantity: 200 for 90 days Issued: 03/08/24 Filled: 03/09/24 Expires: 03/09/25 Refills: 3 Status: ACTIVE ACETAMINOPHEN 325MG TAB Directions: TAKE TWO TABLETS BY MOUTH THREE TIMES A DAY NEEDED FOR PAIN FOR PAIN - DO NOT TAKE MORE [...] 120 for 30 days Issued: 02/05/24 Filled: 02/28/24 Expires: 02/05/25 Refills: 10 Status: ACTIVE METOPROLOL SUCCINATE 100MG SA TAB [...] ACTIVE No remote medications found. PENDING OUTPATIENT MEDICATIONS (LOCAL/REMOTE): GLUCOSE SENSOR DEXCOM G7 Directions: USE SENSOR DIRECTED EVERY 10 DAYS Quantity: 9 Special: USE SENSOR UD [id number] Status: PENDING No remote medications found. ACTIVE NONVA MEDICATIONS [...] 12/21/22 Expires: 12/22/23 Refills: 4 Status: DISCONTINUED ASPIRIN 81MG EC TAB Directions: [...] (LOCAL): CEFAZOLIN 1GM/D5W 50ML INJ Special: Give youth development professional to gold leaf laborer. PROPHYLAXIS Solution: CEFAZOLIN 1GM/D5W (50 ML) Issued: 03/10/24 Expires: 04/10/24 Status: ACTIVE SODIUM CHLORIDE 0.9% INJ,SOLN Special: house calls nurse practitioner to Hospital Mortician. Solution: SODIUM CHLORIDE 0.9% (1000 ML) Issued: 03/10/24 Expires: 03/24/24 Status: ACTIVE GENTAMICIN INJ,SOLN Special: For Hospital Mortician Solution: SODIUM CHLORIDE 0.9% *IRRIG* (500 ML) Additive: GENTAMICIN (40 MG) Issued: 03/10/24 Expires: 03/11/24 Status: /es/ Shruthi Henley MD Primary Care Physician Signed: 03/18/2024 17:03 SHRUTHI HENLEY [facility] Mar 16, 2024 10:39 AM PRIMARY CARE NOTE: LOCAL TITLE: PC PROGRESS NOTE STANDARD TITLE: PRIMARY CARE NOTE DATE OF NOTE: MAR 16, 2024@10:39 ENTRY DATE: MAR 16, 2024@10:39:34 AUTHOR: SHRUTHI HENLEY EXP COSIGNER: URGENCY: STATUS: COMPLETED PC PROGRESS NOTE Has ADDENDA Age-63 Chief complaint: f/u for chronic medical conditions HPI: Pt presents with his with a hx of CAD, DM2 dx in 2004, fatty liver, HTN, glaucoma, macular degeneration, L eye macular edema, B plantar fasciitis, B CTS, and neck pain s/p fusion. He did not tolerate gabapentin or lyrica due to dizziness. Pt had a fall in Jan 2020 landing on his R side and had incr neck pain. Patient reports having [facility] Due to increasing neck pain, he requests pain clinic referral for ALEJANDRA. Patient is status post left heart catheterization ([facility]) on February 01, 2023 with NEUROLOGY TECHNOLOGIST of mid LAD treated 3.5 x 38 and 3.0 x 38 Xience GT, postdilated 4.0 and 3.5 NC trek charo-respectively. Nonflow-limiting RCA disease. LVEF 30% with anterior wall motion abnormality. Echo 08/2023 showed EF 27%. Patient underwent BiV ICD on 03/10/2024. Patient's home BP readings are ranging 107-220 in the morning and 138-313 in the evening. 1. cervical DDD - order cervical MRI and refer to pain clinic when completed 2. DM2 w/neuropathy - cont metformin 1000mg BID, glipizide 20mg BID, empagliflozin 10 mg, and lantus 17u; cont rosuvastatin 40mg and ezetimibe 10 mg; order Dexcom 3. CAD/ischemic CM/HTN w/CKD - s/p BiV ICD; cont Entresto, ECASA 81 mg, Plavix 75 mg, empagliflozin 10 mg, metoprolol succ 25 mg daily, rosuvastatin 40 mg, and spironolactone; no NSAID use; completed cardiac rehab 4. glaucoma/mac degen - ophthal recall 06/2024 5. L foot fibroma - s/p CSI 07/27/21; podiatry f/u 05/05/24 6. fatty liver - cont diet, exercise, wt loss and no ETOH use 7. R clavicular lipoma - no complaints at this time 8. HM - FIT negative 07/2023 Medical History: Active problems - Computerized Problem List is [...] fasciitis 9. Basal cell carcinoma of skin Surgical History: BiV ICD R plantar fibroma excision Apr 2018 R middle finger cyst excision Left eye laser surgery cervical surgery x 2 s/p fusion and disc replacement R inguinal hernia repair sinus surgery R clavicle fracture repair BCC excision (back) Right neck melanoma in situ, wide local excision, right neck, local advancement flap reconstruction Active Outpatient Medications (including Supplies): Active Outpatient Medications Status 1) ACCU-CHEK GUIDE (GLUCOSE) TEST STRIP USE 1 STRIP TO TEST ACTIVE BLOOD SUGAR DIRECTED 2) ACETAMINOPHEN 325MG TAB TAKE TWO TABLETS BY MOUTH TWICE A ACTIVE DAY NEEDED FOR PAIN - DO NOT [...] TWICE A DAY FOR ACTIVE DIABETES 9) INSULIN,GLARGINE-YFGN 100UNIT/ML *PEN* INJECT 17 UNITS UNDER ACTIVE THE SKIN DAILY -DISCARD PEN AFTER 28 DAYS OF USE Indication: FOR BLOOD SUGAR 10) METFORMIN HCL 500MG 24HR SA TAB [...] MOUTH DAILY ACTIVE Indication: FOR HEART FAILURE Active Non-VA Medications Status 1) Non-VA ASCORBIC ACID 500MG TAB 1000MG MOUTH DAILY ACTIVE 2) Non-VA CENTRUM SILVER TABLET 1 TABLET MOUTH DAILY ACTIVE 3) Non-VA MAGNESIUM OXIDE 420MG TAB 840MG MOUTH DAILY ACTIVE 20 Total Medications allergies:VANCOMYCIN, GABAPENTIN, PREGABALIN, SIMVASTATIN, ROSUVASTATIN Hx: [employer] [id number] Social Hx: lives in [place]; ; 1 son and 2 daughters; retired Smoking: quit 1979; prev use 1 ppd x 1 year ETOH: quit 01/2023; prev heavy use Illicit: denies Family Hx: Father: age 71; COPD Mother: age 84; ESRD PE: 198 lb [89.81 kg] (03/16/2024 10:02) 72 in [182.9 cm] (03/16/2024 10:02) Measurement DT BP 03/16/2024 10:02 129/73 68 (03/16/2024 10:02) BODY MASS INDEX - 26.9 PULSE OX: Measurement DT POx (L/MIN)(%) 03/16/2024 10:02 97 Gen: WN WD WM ENT: translucent TMs Pulm: B CTA; nl respiratory rate CV: RRR no M/R/G; no carotid bruits; no edema GI: NT/ND +BS; no HSM MSK: nl gait; no cyanosis or clubbing of nails; muscle strength 5/5 B UE & LE Psych: appropriate mood and affect; A&Ox3 ECHO - NONE FOUND Lipid Prof Gallito. date CHOL TRIG HDL LIPID PHLDL CHOLSERUM AP 08/15/23 08:51 116 77 43 PANEL 1 Gallito. date GLUCOSE BUN CREAT SODIUM K CHLOR CO2 03/10/24 08:52 137 H 28 H 1.36 H 136 4.5 104 28 The OBJECT CBC CUMULATIVE (07/30Y) was NOT found...Contact IRM. Collection DT Specimen Test Name Result Units Ref Range 08/15/2023 08:51 PLASMA!! TSH 1.6676 mIU/mL 0.3500 - 4.9400 !! Indicates COMMENTS AVAILABLE...Refer to Interim Lab Report. Z PROSTATIC ANTIGEN 08/15/23 08:51 2.148 01/08/23 10:19 1.449 Z GLYCOHEMOGLOBIN (HPLC) 08/15/23 08:51 7.8 H A/P: 1. CAD/HTN w/CKD - s/p BiV ICD; cont Entresto, ECASA 81 mg, Plavix 75 mg, empagliflozin 10 mg, metoprolol succ 25 mg daily, rosuvastatin 40 mg, and spironolactone; no NSAID use; completed cardiac rehab Follow up: 8 mos I spent 30 min today reviewing last visit notes, evaluating and managing the patients conditions, and documenting clinic information in health record. __ Preparing to see patient (tests, reviewing last progress note) _x_ Perform medically necessary Exam _x_ Order tests, procedures, medications _x_ Documenting clinical info in health record __ Independently interpreting results and communicating results to patient/caregiver ___ Refer and/or communicate with other providers regarding patient ___ Obtain/review separately obtained history ___ Placed consult MEDICATION RECONCILIATION: The Outpt Essential Med List for review (EMLR) was reviewed w/the pt and the pt declined an updated reconciled med list w/discrepancies corrected. The patient/caregiver verbalized understanding of the topics covered/discussed in today's visit. Patient/caregiver were given the opportunity to ask questions to MD. /amando/ Shruthi Henley MD Primary Care Physician Signed: 03/18/2024 17:03 03/23/2024 ADDENDUM STATUS: COMPLETED Please tell patient letter was mailed stating Your glycohemoglobin or 3-month diabetes lab increased from 7.8 to 8.2. Recommend increasing the Lantus/glargine to 20 units daily. Will repeat lab work on 05/05/2024 when another appointment is scheduled. Your creatinine or kidney lab remains elevated but stable at 1.34. You have not been vaccinated against hepatitis B. If agreeable, you can come to the clinic or call and schedule a nurse appointment for the hepatitis B vaccine. Other labs were normal/stable or within acceptable ranges. /amando/ Shruthi Henley MD Primary Care Physician Signed: 03/23/2024 10:35 Receipt Acknowledged By: 03/24/2024 08:53 /es/ TORI CORDOVA Registered Nurse 03/24/2024 ADDENDUM STATUS: COMPLETED called see pc care man note Mar 24 2024 /amando/ TORI CORDOVA Registered Nurse Signed: 03/24/2024 08:54 03/30/2024 ADDENDUM STATUS: COMPLETED Ed Med Card Device Clini 06/17/2024@08:00 Cons Future X-ray/Mri/Fritz/Nc 06/17/2024@09:00 Non-count Called and spoke with to schedule appt with device clinic. [place] needs clearance on his [facility] ICD. In order to proceed w MRI appt same day. Mld appt ltr /amando/ ZANDRA DIOP Signed: 03/30/2024 16:32 Receipt Acknowledged By: 03/31/2024 06:49 /amando/ RUTHANN BARONE RN 05/11/2024 ADDENDUM STATUS: COMPLETED Please tell patient that his A1c decreased slightly from 8.2 to 8.0 (glucose 186). Recommend continuing metformin 1000mg BID, glipizide 20mg BID, empagliflozin 10 mg, and increasing lantus from 20 units to 24 units daily. Patient now has a Dexcom and should alert if readings are not primarily <150. /es/ Shruthi Henley MD Primary Care Physician Signed: 05/11/2024 09:20 Receipt Acknowledged By: 05/11/2024 14:35 /amando/ RUTHANN PATTON PC Laborer RN-BC for TORI Yazmin CORDOVA 05/11/2024 ADDENDUM STATUS: COMPLETED Forwarding. Thank you. /amando/ RUTHANN PATTON PC Laborer RN-BC Signed: 05/11/2024 14:36 Receipt Acknowledged By: 05/11/2024 14:54 /amanod/ LISS Ingram RN quality improvement engineer 05/11/2024 ADDENDUM STATUS: COMPLETED See 05/11/2024 Telephone Care Note. /amando/ LISS Ingram RN quality improvement engineer Signed: 05/11/2024 14:54 SHRUTHI HENLEY [facility] Mar 16, 2024 09:54 AM PRIMARY CARE YANDEL BANKS NOTE: LOCAL TITLE: Health Tech/environmental epidemiologist Note STANDARD TITLE: PRIMARY CARE NURSING NOTE DATE OF NOTE: MAR 16, 2024@09:54 ENTRY DATE: MAR 16, 2024@09:54:31 AUTHOR: DOMINGA SANCHEZ COSIGNER: URGENCY: STATUS: COMPLETED The patient was given a list of his current medications, instructed to review and discuss any changes or problems with their provider. Patient advised to carry a list of current medications and any allergies with them in the event of emergency situations. Yes - /Caregiver verbalized understanding of topics discussed and education provided Provider notified of elevated B/P >/= 140/90. Not Applicable PTSD Screening: PC-PTSD-5 A PTSD screening test (PC-PTSD-5) was negative (score=0). IN THE PAST MONTH, have you ever had any experience that was so frightening, horrible or traumatic. For example: A serious accident or fire a physical or sexual assault or abuse An earthquake or flood A war Seeing someone be killed or seriously injured Having a loved one through homicide or suicide 1. Have you ever experienced this kind of event? NO 2. Had nightmares about the event(s) or thought about the event(s) when you did not want to? Response not required due to responses to other questions. 3. Tried hard not to think about the event(s) or went out of your way to avoid situations that reminded you of the event(s)? Response not required due to responses to other questions. 4. Been constantly on guard, watchful, or easily startled? Response not required due to responses to other questions. 5. [place] numb or detached from people, activities, or your surroundings? Response not required due to responses to other questions. 6. [place] guilty or unable to stop blaming yourself or others for the event(s) or any problems the event(s) may have caused? Response not required due to responses to other questions. COVID-19 Immunization: Refused Moderna Monovalent COVID-19 vaccine Immunization: COVID-19 (MODERNA), MRNA, LNP-S, PF, 50 MCG/0.5 ML (AGES 12+ YEARS) Refusal Reason: PATIENT DECISION Patient refuses all immunization(s) in the COVID-19 group Date Documented: 03/16/24 10:09 Influenza Immunization: Deferral / Refusal The patient declines to receive the recommended dose of seasonal influenza vaccine. Immunization: INFLUENZA, UNSPECIFIED FORMULATION Refusal Reason: PATIENT DECISION Patient refuses all immunization(s) in the FLU group Date Documented: 03/16/24 10:09 Learning Readiness Assessment: Preferred language for discussing health care Pashto NEW ASSESSMENT LEARNING BARRIERS No barriers to learning Visual Barrier Comment: corrective lenses READING LIMITATIONS No reading limitations PREFERRED METHODS FOR LEARNING Written/Printed Material Verbal Demonstration (Audio/Visual) INTERESTED IN LEARNING (MOTIVATED) PERSON BEING EDUCATED TODAY Education was provided on the following topics RESPONSE Hepatitis B Serology/Immunization: The patient declines to receive the recommended dose of Hepatitis B vaccine. Immunization: HEP B, UNSPECIFIED FORMULATION Refusal Reason: PATIENT DECISION Patient refuses all immunization(s) in the HepB group Date Documented: 03/16/24 10:10 Tdap Immunization: The patient declines to receive the recommended dose of Tdap vaccine. Immunization: TDAP Refusal Reason: PATIENT DECISION Patient refuses all immunization(s) in the TDAP group Date Documented: 03/16/24 10:11 discussed risks vs benefits with regarding declining all vaccinatnions. [place] expressed understanding. Requested to take them next visit d/t him not feeling well d/t recent procedures. MD notified. Alcohol Use Screen (AUDIT-C): Alcohol Screen: SCREEN FOR ALCOHOL (AUDIT-C) An alcohol screening test (AUDIT-C) was negative (score=1). 1. How often did you have a drink containing alcohol in the past year? Consider a drink to be a 12 ounce can or bottle of regular beer, 8 ounces of malt liquor, a 5 ounce glass of table wine, or a 1.5 ounce shot of liquor (like scotch, gin, or vodka). Monthly or less 2. How many drinks containing alcohol did you have on a typical day when you were drinking in the past year? One or two drinks 3. How often did you have six or more drinks on one occasion in the past year? Never Depression Screening: Perform PHQ-2 A PHQ-2 screen was performed. The score was 0 which is a negative screen for depression. Over the past two weeks, how often have you been bothered by the following problems? 1. Little interest or pleasure in doing things Not at all 2. Feeling down, depressed, or hopeless Not at all Suicide Screen: C-SSRS Screening Marty Suicide Severity Rating Scale (C-SSRS) screener 1. Over the past month, have you wished you were or wished you could go to sleep and not wake up? No 2. Over the past month, have you had any actual thoughts of killing yourself? No 3. Over the past month, have you been thinking about how you might do this? Response not required due to responses to other questions. 4. Over the past month, have you had these thoughts and had some intention of acting on them? Response not required due to responses to other questions. 5. Over the past month, have you started to work out or worked out the details of how to kill yourself? Response not required due to responses to other questions. 6. If yes, at any time in the past month did you intend to carry out this plan? Response not required due to responses to other questions. 7. In your lifetime, have you ever done anything, started to do anything, or prepared to do anything to end your life (for example, collected pills, obtained a gun, gave away valuables, went to the roof but didn't jump)? No 8. If YES, was this within the past 3 months? Response not required due to responses to other questions. Tobacco Use Screening: The patient has never smoked cigarettes. The patient has never used other types of tobacco. /amando/ DOMINGA SANCHEZ Licensed Practical Nurse Signed: 03/16/2024 10:14 DOMINGA SANCHEZ [facility]
--- OUTSIDE RECORDS SUMMARY | 2024-07-14 06:49 | XMS_ITS | Encounter Summary ---
Author Name [facility] [place] Organization [facility] [place] [facility] [place] Address [address] [place] [id number] Care Team Providers Care Business Continuity Analyst Name Role Phone JOSUE JOOENEDINA Primary [...] PART A May 30, 2024 PART A [id number] WIGGLESWO RTH,STEWA RT PATIENT MEDICARE (WNR) MEDICARE (M) PART B May 30, 2024 PART B [id number] WIGGLESWO RTH,STEWA RT PATIENT [facility] 2017 SELEC T RETIR ED May 16, 2018 [facility] [id number] [phone] WIGGLESWO RTH,STEWA RT PATIENT [facility] 2017 [employer] A Apr 01, 2017 DODA [id number] WIGGLESWO RTH,STEWA RT PATIENT [facility] 2024 PRIME RETIR ED Apr 01, 2024 PR[employer] RETIRED [id number] [phone] JAZMINE RTH,AMY RT PATIENT Selected Encounter This section includes the information on record at [place] for the Encounter. Date/Time Encounter Type Encounter Description Reason Pro vider Source Dec 18, 2023 03:57 PM Outpatient Encounter ADMIN PAT ACTIVTIES (MASNONCT) [...] Appointment Type Appointme nt Facility Name Jan 01, 2024 08:30 AM AMBULATORY - [place] [facility] Jan 14, 2024 08:30 AM [facility]ORY [facility] [place] [facility] Jan 27, 2024 01:00 PM AMB[facility]ATORY - [place]IC[place] [facility] Jan 29, 2024 03:00 PM [facility] - [place]IC[place] [facility] Feb 07, 2024 09:00 AM [facility] [place] [place] [facility] Feb 20, 2024 02:00 PM [place] [facility] Feb 21, 2024 02:30 PM [facility] - [place]IC[place] [facility] Mar 16, 2024 10:30 AM [place] - [place] [facility] Mar 23, 2024 10:00 AM [facility] - [facility] [facility] Apr 08, 2024 08:15 AM [facility] [place] [facility] Apr 16, 2024 01:30 PM [place] - [place] [facility] Apr 16, 2024 02:15 PM [place] - NONE [place] [facility] May 05, 2024 09:40 AM [place] - [place] [facility] Jun 03, 2024 10:00 AM [place]ORY - [place] [facility] Jun 05, 2024 09:30 AM [place]ORY - NONE [place] [facility] Lab Results: +/- 30 days [...] Type Comment Jan 14, 2024 10:06 AM [facility] PANEL 1 PLASMA Specimen Type: PLASMA Comment: [...] Dec 27, 2023 09:21 AM Reporting Lab: [facility] [address] [facility] [address] Performing Lab: [facility] [address] [facility] [address] CREATININE 1.34 mg/dL H 0.72-1.25 UREA NITROGEN 26 mg/dL H 9-25 GLUCOSE 156 mg/dL H 74-100 SODIUM 137 mmol/L 136-145 POTASSIUM 4.9 mmol/L 3.5-5.1 CHLORIDE 104 mmol/L 98-107 CO2 25 mmol/L 22-29 CALCIUM 9.7 mg/dL 8.4-10.2 ANION GAP 8 meq/L 3-19 eGFR (CKD-EPI) 59 Dec 26, 2023 09:25 AM [facility] PANEL 1 PLASMA Specimen Type: [...] Nov 29, 2023 02:04 PM Reporting Lab: [facility] [address] [facility] [id number] Performing Lab: [address] [address] CREATININE 1.55 mg/dL H 0.72-1.25 UREA NITROGEN [...] the Encounter. Date/Time Encounter Note(s) Provider Source Dec 18, 2023 03:57 PM ADMINISTRATIVE NOT E: LOCAL TITLE: CLERICAL/ADMIN NOTE STANDARD TITLE: ADMINISTRATIVE NOTE DATE OF NOTE: DEC 18, 2023@15:57 ENTRY DATE: DEC 18, 2023@15:58:01 AUTHOR: KHURRAM BOB COSIGNER: URGENCY: STATUS: COMPLETED pt called to resched [facility] 12/25/2023@09:00 Future pt has agreed to come on 12/25@0900 /amando/ KASSIE BOB ADVANCED MSA Signed: 12/18/2023 15:58 Receipt Acknowledged By: 12/19/2023 07:35 /amando/ KASSIE Sutton MSA [facility]
--- OUTSIDE RECORDS SUMMARY | 2024-07-14 06:49 | XMS_ITS ---
Care Plan - [facility] Created on: July 14, 2024 Marybel Cristino Suarez : 1960 Sex: Male Author Organization [facility] Address [address] [place] [address] Phone Care Team Providers Care Follow Up Manager Name Role Phone Aaron Tanner DPM Unavailable [phone] Shruthi Lizarraga Unavailable Unavailable
--- OUTSIDE RECORDS SUMMARY | 2024-07-14 06:49 | XMS_ITS ---
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 Name Role Phone GODFREY SALAS Primary Care [...] PART A May 30, 2024 PART A [id number] [phone] WIGGLESWO RTH,STEWA RT PATIENT MEDICARE (WNR) MEDICARE (M) PART B May 30, 2024 PART B [id number] WIGGLESWO RTH,STEWA RT PATIENT [facility] 2017 SELEC T RETIR ED May 16, 2018 [facility] RETIRED [id number] [phone] WIGGLESWO RTH,STEWA RT PATIENT [facility] 2017 [employer] A Apr 01, 2017 DODA [id number] WIGGLESWO RTH,STEWA RT PATIENT [facility] 2024 PRIME RETIR ED Apr 01, 2024 [employer]IRED [id number] [phone] WIGGLESWO RTH,STEWA RT PATIENT Selected Encounter This section includes the information on record at [place] for the Encounter. Date/Time Encounter Type Encounter Description Reason Pro vider Source August 19, 2023 11:38 AM Outpatient Encounter NUTRITION/DIETETICS-I NDIVIDUAL [facility] Encounter Template Text not used by [place] Plan of Treatment: Future Appointments (+ 6 months) and Future Tests (+/- 45 days) The Plan of Treatment section includes future care activities for the patient from all [place] treatmentfacilities. This section includes future appointments and future orders which are active, pending or scheduled. Future Appointments This section includes appointments that were scheduled to occur 6 months from the date of the Encounter, up to a maximum of 20 appointments. The data comes from all [place] treatment facilities. Appointment Date/Time Appointment Type Appointme nt Facility Name Sep 04, 2023 09:00 AM AMBULATORY - NONE [place] [facility] Sep 11, 2023 09:00 AM [facility] [place] [facility] [facility] Sep 25, 2023 12:45 PM [facility] [place] [facility] Sep 25, 2023 01:30 PM [facility] [place] [facility] Oct 12, 2023 01:00 PM [facility] [facility] Oct 15, 2023 08:00 AM [facility] [place] [facility] Oct 15, 2023 08:15 AM [facility] [place] [facility] Nov 05, 2023 08:30 AM AMBULATORY - REHAB MEDICIN E [facility] Nov 05, 2023 08:40 AM [place] [place] [facility] Nov 20, 2023 03:00 PM [facility] - [facility]ICINE [place] [facility] Nov 26, 2023 10:30 AM [facility] [place] NONE [place] [facility] Dec 12, 2023 04:00 PM [facility] [place] [facility] Jan 01, 2024 08:30 AM AMBULATORY - REHAB MEDICIN E [facility] Jan 14, 2024 08:30 AM [facility] [place] [facility] Jan 27, 2024 01:00 PM [facility] [place] [facility] Jan 29, 2024 03:00 PM [facility] - [facility]ICINE [place] [facility] Feb 07, 2024 09:00 AM AMBULATORY - SURGERY [facility] Lab Results: +/- 30 days of [...] Unit Interpretation Reference Range Specimen Type Comment August 15, 2023 09:05 AM [facility] N MICROALBUMIN/CREAT RATIO URINE Specimen Type: URINE No comment entered. Ordering Provider: MARTHA HENLEY Report Released Date/Time: August 15, 2023 08:38 AM Reporting Lab: [address] [address] Performing Lab: [address] [address] CREATININE 18.9 mg/dL MICROALBUMIN QUANT 66.0 mg/L H 0.0-30.0 .MICROALBUMIN/CREA RATIO 349.2 ug/mg{creat} August 15, 2023 09:05 AM [facility] URINALYSIS URINE Specimen Type: URINE Comment: Microscopic not indicated Ordering Provider: MARTHA HENLEY Report Released Date/Time: August 15, 2023 08:38 AM Reporting Lab: [address] [address] Performing Lab: [address] [address] URINE COLOR Yellow Colorless-Yellow APPEARANCE Clear Clear UROBILINOGEN Normal mg/dL Normal URINE BLOOD Negative Negative URINE BILIRUBIN Negative Negative URINE KETONES Negative mg/dL Negative URINE PROTEIN Negative mg/dL Negative-Tr rhianna URINE PH 6.5 4.5-8.0 URINE NITRITE Negative Negative URINE LEUKOCYTE EST Negative Negative SPECIFIC GRAVITY 1.010 1.005-1.030 URINE GLUCOSE >1000 mg/dL H Negative August 15, 2023 08:51 AM [facility] LIPID PROFILE PLASMA Specimen Type: PLASM A Comment: Estimated [...] Ordering Provider: MARTHA HENLEY Report Released Date/Time: August 15, 2023 08:38 AM Reporting Lab: [address] [address] Performing Lab: [address] [address] CHOLESTEROL 116 mg/dL 0-199 TRIGLYCERIDE 77 mg/dL 0-149 HDL CHOLESTEROL 43 mg/dL 40-69 DIRECT LDL CHOL. 62 mg/dL 0-100 August 15, 2023 08:51 AM [facility] GLYCOHEMOGLOBIN BLOOD Specimen Type: BLOOD Comment: [place] guidelines for A1c interpretation: Glycemic control targets are based on Shared Decision Making between clinicians and patients. Criteria used to establish an A1c target recommendation can be found at https://www.ct.gov/qualityandpatientsafety/ and include the use of result accuracy [...] 8.73 and 9.27. Ref: https://ngsp.org/CAPdata.asp. The in-house aXess america D-100 analyzer has a historical CV <= 2%. Contact the laboratory for further performance characteristics of this assay. Ordering Provider: MARTHA HENLEY Report Released Date/Time: August 15, 2023 08:38 AM Reporting Lab: [address] [address] Performing Lab: [address] [address] GLYCOHEMOGLOBIN 7.8 H 4.4-6.4 August 15, 2023 08:51 AM [facility] PSA S JOSE Specimen Type: SERUM No comment entered. Ordering Provider: MARTHA HENLEY Report Released Date/Time: August 15, 2023 08:38 AM Reporting Lab: [address] [address] Performing Lab: [address] [address] PSA 2.148 ng/mL 0-3.999 August 15, 2023 08:51 AM [facility] CBC/PLT BLOOD Specimen Type: BLOOD No comment entered. Ordering Provider: MARTHA HENLEY Report Released Date/Time: August 15, 2023 08:38 AM Reporting Lab: [address] [address] Performing Lab: [address] [address] WBC 5.8 10*3/uL 5.0-10.0 RBC 5.65 10*6/uL 4.6-6.2 HGB 14.8 g/dL 14.0-18.0 HCT 46.6 42.0-52.0 MCV 82.5 fL 80.0-94.0 MCH 26.2 pg L 27.0-31.0 MCHC 31.8 g/dL L 32.0-36.0 PLT 234 10*3/uL 150-450 MPV 9.9 fL 9.0-13.1 RDW 17.5 H 11.0-16.0 NRBC 0.0 0.0-0.0 August 15, 2023 08:51 AM [facility] PANEL 5 PLASMA Specimen Type: PLASM A Comment: Estimated [...] Ordering Provider: MARTHA HENLEY Report Released Date/Time: August 15, 2023 08:38 AM Reporting Lab: [address] [address] Performing Lab: [address] [address] CREATININE 1.29 mg/dL H 0.72-1.25 UREA NITROGEN 29 mg/dL H 9-25 GLUCOSE 176 mg/dL H 74-100 SODIUM 136 mmol/L 136-145 POTASSIUM 4.8 mmol/L 3.5-5.1 CHLORIDE 100 mmol/L 98-107 CO2 26 mmol/L 22-29 CALCIUM 10.7 mg/dL H 8.4-10.2 TOTAL PROTEIN 7.5 g/dL 6.4-8.3 ALBUMIN 4.5 g/dL 3.5-5.2 TOTAL BILIRUBIN 0.4 mg/dL 0.2-1.2 AST 29 U/L 5-34 ALT 28 U/L 0-55 ANION GAP 10 meq/L 3-19 ALK PHOS 63 U/L 40-150 eGFR (CKD-EPI) 62 August 15, 2023 08:51 AM [facility] PLASMA Specimen Type: PLASM A Comment: Estimated [...] Ordering Provider: MARTHA HENLEY Report Released Date/Time: August 15, 2023 08:38 AM Reporting Lab: [address] [address] Performing Lab: [address] [address] TSH 1.6676 m[IU]/mL 0.3500-4.9400 August 15, 2023 08:51 AM [facility] B12 VITAMIN PLASMA Specimen Type: PLASM [...] Ordering Provider: MARTHA HENLEY Report Released Date/Time: August 15, 2023 08:38 AM Reporting Lab: [address] [address] Performing Lab: [address] [address] B12 VITAMIN 614 pg/mL 213-816 August 15, 2023 08:51 AM [facility] 25-OH VITAMIN D SERUM Specime n [...] Ordering Provider: MARTHA HENLEY Report Released Date/Time: August 15, 2023 08:38 AM Reporting Lab: [address] [address] Performing Lab: [address] [address] 25-OH VITAMIN D 66.4 ng/mL H 20.0-50.0 Jul 26, 2023 05:15 AM [facility] OCCULT BLOOD FIT X1 SCREEN FECES Specimen Type: FECES No comment entered. Ordering Provider: MARTHA HENLEY Report Released Date/Time: Jul 23, 2023 10:33 AM Reporting Lab: [address] [address] Performing Lab: [address] [address] OCCULT BLOOD (FIT) #1 OF 1 Negative Nega tive Social History: Smoking Status (Most current) and Tobacco Use (All prior to encounter date) This section includes the most current, and the historical, smoking and tobacco- related health factors from the [place] facility where the Encounter took place. Current Smoking Status This section includes the most current smoking, or tobacco-related health factor, from the [place] facility where the Encounter took place. Date/Time Current Smoking Status Comment Christofer ity August 15, 2023 08:00 AM [place]-TOBACCO NEVER USED [facility] Tobacco Use History This section includes a history of the smoking, or tobacco-related health factors, that were collected on or before the date of the Encounter. The data comes from the [place] facility where the Encounter took place. Date/Time Smoking Status/Tobacco Use Comment F acility Jun 11, 2022 08:30 AM [place]-TO[place]AC[place] NEVER USED [facility] May 11, 2021 08:00 AM VA-TOBACCO FORMER USER [facility] May 11, 2021 08:00 AM VA-TOBACCO QUIT 15 YRS OR MORE [facility] Apr 04, 2020 08:30 AM VA-TOBACCO FORMER USER [facility] Apr 04, 2020 08:30 AM VA-TOBACCO QUIT 15 YRS OR MORE [facility] Mar 18, 2019 12:56 PM VA-TOBACCO FORMER USER [facility] Mar 18, 2019 12:56 PM VA-TOBACCO QUIT 5 TO < 15 YRS [facility] Encounter Notes: All associated encounter notes This section contains the clinical notes associated to the Encounter. Date/Time Encounter Note(s) Provider Source August 19, 2023 11:38 AM LETTERS: LOCAL TITLE: SPECIALTY CONTACT LETTER STANDARD TITLE: LETTERS DATE OF NOTE: AUGUST 19, 2023@11:38 ENTRY DATE: AUGUST 19, 2023@11:38:50 AUTHOR: SELENE HERNANDEZ EXP COSIGNER: URGENCY: STATUS: COMPLETED [facility] [address] [place] [address] Mr. KATE PAVON RAUL [address] [place], [place] [address] AUGUST 19, 2023 Dear KATE CARTER, We have been unable to contact you by telephone to schedule an appointment in our Nutrition clinic. Your health and well-being are important to us. Please call us at or . Select Option #2 and then #3. We look forward to hearing from you soon. Sincerely yours, Nutrition [facility] SELENE HERNANDEZ [facility]
--- OUTSIDE RECORDS SUMMARY | 2024-07-14 06:49 | XMS_ITS | Encounter Summary ---
Author Name [facility] [place] [facility] [place] Address [address] [place] [id number] Care Team Providers Care Battery Assembler Plastic Name Role Phone JOSUE JOOENEDINA Primary Care [...] PART B May 30, 2024 PART B [id number] WIGGLESWO RTH,STEWA RT PATIENT MEDICARE (WNR) MEDICARE (M) PART A May 30, 2024 PART A [id number] WIGGLESWO RTH,STEWA RT PATIENT [facility] 2017 SELEC T RETIR ED May 16, 2018 [facility] [id number] [phone] WIGGLESWO RTH,STEWA RT PATIENT [facility] 2017 [employer] A Apr 01, 2017 DODA [id number] WIGGLESWO RTH,STEWA RT PATIENT [facility] 2024 PRIME RETIR ED Apr 01, 2024 [employer] RETIRED [id number] [phone] WIGGLESWO RTHAMY RT PATIENT Selected Encounter This section includes the information on record at [place] for the Encounter. Date/Time Encounter Type Encounter Description Reason Provider Source Jun 26, 2024 08:20 AM OFFICE O/P NEW LOW 30 MIN NEUROSURGERY ICD-10-CM M48.02 Spinal stenosis, cervical region KARO SALGADOTINE A [facility] Encounter Template Text not used by [place] Assessments - Encounter Diagnoses This section includes the primary and secondary diagnoses documented for the Encounter. Date/Time Primary/Secondary Diagnosis Diagnosis Name Provider Source Jun 26, 2024 09:03 AM PRIMARY Spinal stenosis, cervical region PEGGY SALGADO [facility] Jun 26, 2024 09:03 AM SECONDARY Cerv disc disorder with radiculopathy, high cervical region PEGGY SALGADO [facility] Plan of Treatment: Future Appointments (+ 6 months) and Future Tests (+/- 45 days) The Plan of Treatment section includes future care activities for the patient [facility] [place] [facility] This section includes future appointments and future orders which are active, pending or scheduled. Future Appointments This section includes appointments that were scheduled to occur 6 months from the date of the Encounter, up to a maximum of 20 appointments. The data comes from all [place] treatment facilities. Appointment Date/Time Appointment Type Appointme nt Facility Name Jun 29, 2024 01:30 PM AM[facility]ATORY - NONE [facility] Jul 15, 2024 09:00 AM [facility] Jul 27, 2024 08:00 AM [facility] SURG[facility] [place] [facility] Jul 29, 2024 01:00 PM AMBULATORY - MEDICINE [facility] August 03, 2024 07:00 AM AMBULATORY - NONE [facility] Sep 23, 2024 10:00 AM AMBULATORY - MEDICINE [facility] Nov 03, 2024 09:40 AM AM[facility]ATORY - SURGERY [place] [facility] Active, Pending, and Scheduled Orders This section includes a listing of several types of active, pending, and scheduled orders, including clinic medications orders, diagnostic test orders, procedure orders and consult orders; where the start date of the order is 45 days before the date of the Encounter or 45 days after the date of theEncounter. The data comes from all [place] treatment facilities. Test Date/Time Test Type Test Details Facility Name Jun 26, 2024 09:07 AM Consult Order PAIN CLINI C ANESTHESIOLOGY/PAIN CD OUTPATIENT Cons [place] [facility] Jul 15, 2024 12:00 AM Imaging - Ultrasou nd Order FNA BX W/ ULTRASND GDN,[facility]ST [facility] Radiology Reports: +/- 30 days [...] The data comes from all [place] treatment [facility]. Date/Time Radiology Report Provider Source Jun 29, 2024 12:58 PM U/S THYROID: KATE CARTER [id number] -[id number] M Exm Date: JUN 29, 2024@12:58 Req Phys: MARTHA HENLEY Pat Loc: X-RAY/MRI/DOROTHEA/NC (Req'g Loc Img Loc: ULTRASOUND Service: [place] [address] (Case [id number] COMPLETE) U/S THYROID (US Detailed) CPT:64956 Reason for Study: SEE CLINICAL HISTORY Clinical History: REASON FOR EXAM:Nodule/Lesion follow up PERTINENT PATIENT HISTORY: PROVIDER ExtPager# Report Status: Verified Date Reported: JUN 30, 2024 Date Verified: JUN 30, 2024 Cuff Setter E-Sig: Report: EXAMINATION: THYROID ULTRASOUND CLINICAL INDICATIONS: [...] Interpreting Staff: CHIN CASTILLO, Radiologist Verified by adobe developer for CHIN CASTILLO /CHIN LEES-D [facility] Jun 17, 2024 08:36 AM MRI C SPINE W/O CO NTRAST: RAFTYSHAWNKATE [id number] -1960 M Exm Date: JUN 17, 2024@08:36 Req Phys: MARTHA HENLEY [facility] (Req'g Lo Img Loc: [facility] Service: Unknown [place] [id number] (Case [id number] COMPLETE) MRI C SPINE W/O CONTRAST (MRI Detailed) CPT:65442 Reason for Study: SEE CLINICAL HISTORY Clinical History: STATUS OF PLAIN FILMS:Done, exam date/impression above. MRI Screening (Required): IMPLANTED DEVICE DOCUMENTATION 03/11/2024 09:29 Local Title: IMPLANTED CARDIAC DEVICE Standard Title: CLINICAL WARNING Patient has an Implanted Cardiac Device. 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 RA lead - [employer], model [id number], SN [id number]. RV lead - [employer], model 7122Q, SN [id number]. LV - [employer]don, model 1458QL, SN [id number]. Parameters: RA - threshold - 0.25v@0.5ms, 460 ohms, sensing - >5mV RV - threshold - 0.25v@0.5ms, 640 ohms, sensing - >12mV LV - threshold - 1.25v@0.5ms, 700 ohms. DFT's - were not assessed. Shock coil impedance - 73 ohms. Implant 03/10/2024 Dr. Mckinney Signed by: /es/ RUTHANN BARONE RN 03/11/2024 09:32 Does the Lutz have any Cardiac Implants? ICD Does the have any implanted stimulators? None Does the have cochlear implants? No Does the Lutz have Cerebral aneurysm clip(s)? No Does the Lutz have any shrapnel? No If yes, where [...] 17, 2024 Date Verified: JUN 17, 2024 Cuff Setter E-Sig: Report: KATE CARTER 1960 EXAM: MRI [...] Staff: FATUMA GARCIA, Staff Physician Verified by adobe developer for FATUMA GARCIA /OCTAVIA GARCIA,FATUMA [facility] Encounter Notes: All associated encounter notes This section contains the clinical notes associated to the Encounter. Date/Time Encounter Note(s) Provider Source Jun 26, 2024 09:30 AM SURGERY NURSING NO TE: LOCAL TITLE: SURGERY CLINIC INTAKE NOTE STANDARD TITLE: SURGERY NURSING NOTE DATE OF NOTE: JUN 26, 2024@09:30 ENTRY DATE: JUN 26, 2024@09:30:51 AUTHOR: NIKKIE LEON COSIGNER: URGENCY: STATUS: COMPLETED The patient was given a list of his/her medications, instructed to review and discuss any changes or problems with their provider. Patient advised to carry a list of current medications and any allergies with them in the event of emergency situations. Allergies: local and remote VANCOMYCIN, GABAPENTIN, PREGABALIN, SIMVASTATIN, ROSUVASTATIN FACILITY ALLERGY/ADR -------- 581^[facility]^581 VANCOMYCIN Medication Reconciliation MRR1 - Med Reconciliation INCLUDED IN THIS LIST: Alphabetical list of active outpatient prescriptions dispensed from this [place] (local) and dispensed from another [place] or [facility]D facility (remote) as well as inpatient orders (local pending and active), local clinic medications, locally documented non-VA medications, and local prescriptions that have or been discontinued in the past 90 days. Non-VA Meds Last Documented On: Mar 16, 2024 NOTE The display of VA prescriptions dispensed from another [place] or [employer] facility (remote) is limited to active outpatient prescription entries matched to National Drug File at the originating site and may not include some items such as investigational drugs, compounds, etc. NOT INCLUDED IN THIS LIST: Medications self-entered by the patient into personal health records (i.e. [employer]) are NOT included in this list. Non-VA medications documented outside this [place], remote inpatient orders (regardless of status) and remote clinic medications are NOT included in this list. The patient and provider must always discuss medications the patient is taking, regardless of where the medication was dispensed or obtained. OUTPT ACETAMINOPHEN 325MG TAB (Status = Active) TAKE TWO TABLETS BY MOUTH THREE TIMES A DAY NEEDED FOR PAIN DO NOT TAKE MORE THAN 12 TABLETS PER DAY Rx# [id number] Last Released: 06/23/24 Qty/Days Supply: 200/30 Rx Expiration Date: 03/17/25 Refills Remainin Indication: FOR PAIN Non-VA ASCORBIC ACID 500MG TAB TAKE TWO TABLETS BY MOUTH DAILY OUTPT ASPIRIN 81MG EC TAB (Status = Active) TAKE ONE TABLET BY MOUTH DAILY FOR HEART Rx# [id number] Last Released: 04/17/24 Qty/Days Supply: 90 Rx Expiration Date: 01/29/25 Refills Remainin Indication: FOR HEART Non-VA CENTRUM SILVER TABLET TAKE ONE TABLET BY MOUTH DAILY OUTPT CHOLECALCIF 25MCG (D3-1,000UNIT) TAB (Status = Active) TAKE ONE TABLET BY MOUTH DAILY FOR VITAMIN D SUPPLEMENT Rx# [id number] Last Released: 05/28/24 Qty/Days Supply: 100/ Rx Expiration Date: 12/03/24 Refills Remainin Non-VA COENZYME Q10 CAP/TAB TAKE 1 CAP/TAB BY MOUTH DAILY OUTPT EMPAGLIFLOZIN 10MG TAB (Status = Active) TAKE ONE TABLET BY MOUTH EVERY MORNING FOR HEART FAILURE Rx# [id number] Last Released: 06/17/24 Qty/Days Supply: 90 Rx Expiration Date: 09/25/24 Refills Remainin Indication: FOR HEART FAILURE OUTPT EZETIMIBE 10MG TAB (Status = Active) TAKE ONE TABLET BY MOUTH EVERY EVENING FOR CHOLESTEROL Rx# [id number] Last Released: 04/09/24 Qty/Days Supply: Rx Expiration Date: 09/25/24 Refills Remainin Indication: FOR CHOLESTEROL OUTPT FLUTICASONE PROP 50MCG 120D NASAL INHL (Status = Active/Suspended) USE 1 SPRAY IN EACH NOSTRIL DAILY FOR NASAL ALLERGY Rx# [id number] Last Released: 04/23/24 Qty/Days Supply: Rx Expiration Date: 11/11/24 Refills Remainin OUTPT GLIPIZIDE 10MG TAB (Status = Active) TAKE TWO TABLETS BY MOUTH TWICE A DAY FOR DIABETES Rx# [id number] Last Released: 04/12/24 Qty/Days Supply: Rx Expiration Date: 12/10/24 Refills Remainin OUTPT GLUCOSE 4GM CHEW TAB (Status = Active) CHEW 4 TABLETS (16 GRAMS OF CARBS) BY MOUTH DIRECTED FOR LOW BLOOD SUGAR Rx# [id number] Last Released: 06/01/24 Qty/Days Supply: Rx Expiration Date: 05/29/25 Refills Remainin Indication: FOR LOW BLOOD SUGAR OUTPT INSULIN,GLARGINE 100 UNT/ML 3ML SOLOSTAR (Status = Active) INJECT 24 UNITS UNDER THE SKIN DAILY FOR BLOOD SUGAR -DISCARD PEN AFTER 28 DAYS OF USE. REPLACES GLARGINE-YFGN Rx# [id number] Last Released: 05/15/24 Qty/Days Supply: Rx Expiration Date: 05/12/25 Refills Remainin Indication: FOR BLOOD SUGAR OUTPT INSULIN,GLARGINE-YFGN 100UNIT/ML *PEN* (Status = Discontinued) INJECT 20 UNITS UNDER THE SKIN DAILY FOR BLOOD SUGAR -DISCARD PEN AFTER 28 DAYS OF USE Rx# [id number] Last Released: 03/27/24 Qty/Days Supply: Rx Expiration Date: 03/24/25 Refills Remainin Indication: FOR BLOOD SUGAR OUTPT INSULIN,GLARGINE-YFGN 100UNIT/ML *PEN* (Status = Discontinued) INJECT 24 UNITS UNDER THE SKIN DAILY FOR BLOOD SUGAR -DISCARD PEN AFTER 28 DAYS OF USE Rx# [id number] Last Released: Qty/Days Supply: Rx Expiration Date: 05/12/25 Refills Remainin Indication: FOR BLOOD SUGAR OUTPT LATANOPROST 0.005% OPH SOLN (Status = Active) PUT 1 DROP IN BOTH EYES AT BEDTIME FOR GLAUCOMA Rx# [id number] Last Released: 04/20/24 Qty/Days Supply: Rx Expiration Date: 04/16/25 Refills Remainin Indication: FOR GLAUCOMA Non-VA MAGNESIUM OXIDE 420MG TAB TAKE TWO TABLETS BY MOUTH DAILY OUTPT METFORMIN HCL 500MG 24HR SA TAB (Status = Active) TAKE TWO TABLETS BY MOUTH TWICE A DAY FOR DIABETES Rx# [id number] Last Released: 06/18/24 Qty/Days Supply: 12030 Rx Expiration Date: 02/05/25 Refills Remainin OUTPT METOPROLOL SUCCINATE 100MG SA TAB (Status = Active) TAKE ONE AND ONE-HALF TABLETS BY MOUTH DAILY FOR HEART Rx# [id number] Last Released: 06/05/24 Qty/Days Supply: 135/90 Rx Expiration Date: 09/25/24 Refills Remainin Indication: FOR HEART OUTPT MULTIVIT/OPHTH AREDS2/LUTE/ZEAX CAP/TAB (Status = Active) TAKE 1 SOFTGEL BY MOUTH TWICE A DAY AFTER MEALS FOR EYE HEALTH Rx# [id number] Last Released: 04/14/24 Qty/Days Supply: 180/90 Rx Expiration Date: 01/17/25 Refills Remainin OUTPT MUPIROCIN 2% OINT (Status = Discontinued) APPLY SMALL AMOUNT TO AFFECTED AREA TWICE A DAY FOR SKIN INFECTION Rx# [id number] Last Released: 04/11/23 Qty/Days Supply: Rx Expiration Date: 04/11/24 Refills Remainin Indication: FOR SKIN INFECTION OUTPT OMEPRAZOLE 20MG EC CAP (Status = Active) TAKE ONE CAPSULE BY MOUTH TWICE A DAY FOR STOMACH. TAKE ON AN EMPTY STOMACH Rx# [id number] Last Released: 05/12/24 Qty/Days Supply: 180/90 Rx Expiration Date: 02/05/25 Refills Remainin OUTPT ROSUVASTATIN [place] 40MG TAB (Status = Active) TAKE ONE TABLET BY MOUTH DAILY FOR CHOLESTEROL Rx# [id number] Last Released: 06/19/24 Qty/Days Supply: Rx Expiration Date: 09/25/24 Refills Remainin Indication: FOR CHOLESTEROL OUTPT SACUBITRIL 97MG/VALSARTAN 103MG TAB (Status = Active) TAKE 1 TABLET BY MOUTH TWICE A DAY FOR HEART FAILURE Rx# [id number] Last Released: 05/13/24 Qty/Days Supply: 180 Rx Expiration Date: 01/29/25 Refills Remainin Indication: FOR HEART FAILURE OUTPT SPIRONOLACTONE 25MG TAB (Status = Active) TAKE ONE TABLET BY MOUTH DAILY FOR HEART FAILURE Rx# [id number] Last Released: 06/03/24 Qty/Days Supply: Rx Expiration Date: 09/25/24 Refills Remainin Indication: FOR HEART FAILURE SUPPLIES OUTPT ACCU-CHEK GUIDE (GLUCOSE) TEST STRIP (Status = Active) USE 1 STRIP TO TEST BLOOD SUGAR DIRECTED Rx# [id number] Last Released: 03/11/24 Qty/Days Supply: 200/ Rx Expiration Date: 03/09/25 Refills Remainin OUTPT GLUCOSE SENSOR DEXCOM G7 (Status = Active) USE SENSOR DIRECTED EVERY 10 DAYS FOR BLOOD SUGAR MONITORING Rx# [id number] Last Released: 06/25/24 Qty/Days Supply: Rx Expiration Date: 03/18/25 Refills Remainin Indication: FOR BLOOD SUGAR MONITORING OUTPT NEEDLE,PEN 32G,4MM (Status = Active) USE 1 NEEDLE UNDER THE SKIN EVERY DAY Rx# [id number] Last Released: 3/24/25 Qty/Days Supply: 100/90 Rx Expiration Date: 03/07/25 Refills Remainin /amando/ NIKKIE LEON Health Manager [facility] [employer] Signed: 06/26/2024 09:31 NIKKIE LEON-[facility] Jun 26, 2024 08:46 AM NEUROSURGERY CONSU LT: LOCAL TITLE: NEUROSURGERY CONSULT RESPONSE STANDARD TITLE: NEUROSURGERY CONSULT DATE OF NOTE: JUN 26, 2024@08:46 ENTRY DATE: JUN 26, 2024@08:46:46 AUTHOR: RAYMON SALGADO COSIGNER: ANGE FERNANDEZ URGENCY: STATUS: COMPLETED NEUROSURGERY CONSULT RESPONSE Has ADDENDA CONSULT RESPONSE Nursing Intake Note Reviewed Pain: 6 (06/26/2024 08:07) Active Outpatient Medications (including Supplies): Active Outpatient [...] DIRECTED Indication: FOR LOW BLOOD SUGAR 10) GLUCOSE SENSOR DEXCOM G7 USE SENSOR DIRECTED EVERY 10 ACTIVE DAYS Indication: FOR BLOOD SUGAR MONITORING 11) INSULIN,GLARGINE 100 UNT/ML 3ML SOLOSTAR INJECT 24 UNITS ACTIVE UNDER THE SKIN DAILY -DISCARD PEN AFTER 28 DAYS OF USE. REPLACES GLARGINE-YFGN Indication: FOR BLOOD SUGAR 12) LATANOPROST 0.005% OPH SOLN PUT 1 DROP IN BOTH EYES AT ACTIVE BEDTIME Indication: FOR GLAUCOMA 13) METFORMIN HCL 500MG 24HR SA TAB TAKE TWO TABLETS BY MOUTH ACTIVE TWICE A DAY FOR DIABETES 14) METOPROLOL SUCCINATE 100MG SA TAB TAKE ONE AND ONE-HALF ACTIVE TABLETS BY MOUTH DAILY Indication: FOR HEART 15) MULTIVIT/OPHTH AREDS2/LUTE/ZEAX CAP/TAB TAKE 1 SOFTGEL BY ACTIVE MOUTH TWICE A DAY AFTER MEALS FOR EYE HEALTH 16) NEEDLE,PEN 32G,4MM USE 1 NEEDLE UNDER THE SKIN EVERY DAY ACTIVE 17) OMEPRAZOLE 20MG EC CAP TAKE ONE CAPSULE BY MOUTH TWICE A DAY ACTIVE FOR STOMACH. TAKE ON AN EMPTY STOMACH 18) ROSUVASTATIN [place] 40MG TAB TAKE ONE TABLET BY MOUTH DAILY ACTIVE Indication: FOR CHOLESTEROL 19) SACUBITRIL 97MG/VALSARTAN 103MG TAB TAKE 1 TABLET BY MOUTH ACTIVE TWICE A DAY Indication: FOR HEART FAILURE 20) SPIRONOLACTONE 25MG TAB TAKE ONE TABLET BY MOUTH DAILY ACTIVE Indication: FOR HEART FAILURE Active Non-VA Medications Status 1) Non-VA ASCORBIC ACID 500MG TAB 1000MG MOUTH DAILY ACTIVE 2) Non-VA CENTRUM SILVER TABLET 1 TABLET MOUTH DAILY ACTIVE 3) Non-VA COENZYME Q10 CAP/TAB 1 CAP/TAB MOUTH DAILY ACTIVE 4) Non-VA MAGNESIUM OXIDE 420MG TAB 840MG MOUTH DAILY ACTIVE 24 Total Medications Medications and ALL/ADR information entered via sites using [employer] and/or [employer] (Proprietary) facilities may be inaccurate or incomplete Patient educated on medication changes and an updated list of medications was provided. ALLERGIES: VANCOMYCIN, GABAPENTIN, PREGABALIN, SIMVASTATIN, ROSUVASTATIN Active problems - Computerized Problem List is [...] fasciitis 10. Basal cell carcinoma of skin Presenting problems and reason for visit: RUE radiculopathy History and objective data relative to the presenting problems: Mr. Carter is a very pleasant 64 yo gentleman presenting today re: his RUE radiculopathy. He has a significant h/o C4-6 ACDF approx. 9-10 yrs ago. He had BUE radicular pain that resolved. In 2019 he developed pain in the neck that extends down to the R trapezius muscle and above scapular border. At night his symptoms worsen and the pain extends to his hand, along with numbness and burning. He attended PT and Chiropractor several yrs ago and currently alternates deep tissue massage and accupunture every other week. He has difficulty grabbing things with his right hand mainly from pain near the joint between his 1st and 2nd fingers. He denies myelopathic symptoms. No LUE symptoms. REVIEW OF SYSTEMS General: No reported fever/chills, no weight change Neuro: As described in HPI Pulm: No reported SoA/cough CV: No reported CP/palpitations GI: No reported N/V, changes to BMs, or abdominal pain : No reported changes to urination MSK: As in HPI Derm: No reported rashes Heme: No reported bleeding or bruising Psych: No reported depression/anxiety ID: No reported recent infection Physical Exam: General: WN/WD, A&Ox3 in NAD, normal affect HEENT: NC/AT, EOM intact Lungs:nonlaboured breathing CV:no cyanosis, no peripheral edema Skin: no rashes Extremities: no clubbing, no edema Neuro: CN: 3-12 grossly intact Strength: Delt Bi Tri Private Inquiry Agent Intrinsics RUE 5/5 5/5 5/5 5/5 5/5 LUE 5/5 5/5 5/5 5/5 5/5 HF KE DF EHL PF RLE 5/5 5/5 5/5 5/5 5/5 LLE 5/5 5/5 5/5 5/5 5/5 Sensation intact to light touch throughout BUE/BLE Reflexes Bi (C5) BR (C6) Tri (C7) Patellar (L4) Achilles (S1) Rt 3+ 2+ 2+ 3+ 2+ Lt 3+ 2+ 2+ 3+ 2+ Oliva's absent No Clonus Gait: normal Tinel's Neg at bilat. wrists and elbows Imaging: C-spine MRI w/o contrast done on 06/17/24: Impression: 1. Suggestion of spinal cord compression [...] Staff: FATUMA GARCIA, Staff Physician Verified by adobe developer for FATUMA GARCIA Assessment of the problems: 1. C3-4 cervical stenosis with R>L neuroformainal stenosis with associated RUE C3-4 radiculopathy Treatment plan: 1. would like to try injections as helped before first surgery. I will place this order. If another course of PT is required first, prefers [facility] in [place]. If fails injections or develops myelopathic symptoms, will call to be re-evalauted for surgical intervention. agrees to plan. RTC: PRN This note was dictated using voice to text software and may contain minor errors. I have discussed the patient with my supervising practitioner, Ange Fernandez MD and Dr. Fernandez agrees with my assessment and plan. /amando/ LUPILLO SALGADO PHYSICIAN [place] CLASSIFIER TENDER, SURGERY Signed: 06/26/2024 09:03 /amando/ ANGE FERNANDEZ Chief, Neurosurgery Cosigned: 06/26/2024 09:38 06/26/2024 ADDENDUM STATUS: COMPLETED I have reviewed the patient's history, physical exam, and the patient's diagnostic studies with the neurosurgical PA. I have discussed the treatment plan with the PA, and I agree with the diagnosis and the treatment plan. /amando/ ANGE FERNANDEZ Chief, Neurosurgery Signed: 06/26/2024 09:38 RAYMON SALGADO[facility]
--- OUTSIDE RECORDS SUMMARY | 2024-07-14 06:49 | XMS_ITS | Clinical Summary ---
Author Organization [facility] , [facility] Address [address] [place] [address] Phone Care Team Providers Care Front Office Java Developer Name Role Phone Flores FOY, Aaron Tolliver Unavailable [phone] Shruthi Lizarraga Unavailable Unavailable Reason for Visit and Chief Complaint The Chief Complaint is: RLF pain Problems Includes: Problems addressed during this encounter and other active Problems All Visits Onset Date Resolved Date Provider Condition S tatus Bone Pain Right Fingers 04/21/2018 Sav Torres MD Active Last Documented On 9 9:22AM ; [facility], [facility] Pain in Both Feet 01/21/2018 Aaron Tanner DPM Active Last Documented On 8 8:55AM ; [facility], [facility] Plan of Treatment Local wound care. Follow up in 10 days - Last Documented On 06/27/2018 12:05PM ; [facility], [facility] Instructions to patient Instructions for patient see pcp for bp Last Documented On 9 8:56AM ; [facility], [facility] Assessments Includes: Assessments from this encounter No Assessments Recorded Instructions Includes: Instructions from this encounter Instructions to patient Instructions for patient see pcp for bp Last Documented On 9 8:56AM ; [facility], [facility] Medical Equipment - Implanted Devices Includes: Current Devices No Medical Equipment Recorded Medications Includes: Medications discussed during this encounter and other current Medications Current Medications (continue as prescribed) Cholecalciferol 25 MCG (1000 UT) Oral Tablet Chewable 06/20/2020 Provider: Diagnosis: Last Documented On 1 12:12PM By Karuna Chase ; [facility], [facility] Ketotifen Fumarate 0.025% Ophthalmic Solution 06/21/19 Provider: Diagnosis: Last Documented On 12:11PM By Karuna Chase ; [facility], [facility] PreserVision AREDS Oral Tablet 06/20/2020 Provider: Diagnosis: Last Documented On 12:10PM By Karuna Chase ; [facility] Fluticasone Furoate 50 MCG/A CT Inhalation Aerosol Powder Breath Activated 06/20/2020 Provider: Diagnosis: Last Documented On 1 12:10PM By Karuna Chase ; [facility], [facility] Lidocaine 5% External Ointment 06/20/2020 Provider: Diagnosis: Last Documented On 12:10PM By Karuna Chase ; [facility], [facility] CVS Omeprazole 20 MG Oral Ta blet Delayed Release Disintegrating 06/20/2020 Provider: Diagnosis: Last Documented On 12:09PM By Karuna Chase ; [facility] Lisinopril 40 MG Oral Tablet 06/20/2020 Provider: Diagnosis: Last Documented On 12:09PM By Karuna Chase ; [facility], [facility] Accu-Chek Soft Touch Lancets Miscellaneous 06/20/2020 Provider: Diagnosis: Last Documented On 12:09PM By Karuna Chase ; [facility], [facility] Droplet Pen [place] 32G X 5 MM Miscellaneous Provider: Diagnosis: Last Documented On 1 12:08PM By Karuna Chase ; [facility], [facility] Accu-Chek Softclix Lancet Dev Kit 06/20/2020 Provide r: Diagnosis: Last Documented On 12:07PM By Karuna Chase ; [facility], [facility] metFORMIN HCl 500 MG Oral Tablet 06/20/2020 Provider : Diagnosis: Last Documented On 1 12:07PM By Karuna Chase ; [facility], [facility] Refresh Contacts Drops Solution 06/20/2020 Provider: Diagnosis: Last Documented On 1 12:11PM By Karuna Chase ; [facility], [facility] Clindamycin HCl 300 MG Oral Capsule 06/18/2020 Provi jaqui: Diagnosis: Last Documented On 9:08AM By Karuna Chase ; [facility], [facility] Acetaminophen 325 MG Oral Tablet 05/11/2020 Provider : Diagnosis: Last Documented On 9:09AM By Karuna Chase ; [facility], [facility] Ketoconazole 2% External Shampoo 04/24/2020 Provider : Diagnosis: Last Documented On 9:09AM By Karuna Chase ; [facility], [facility] Curity Alcohol Preps 70% Pad 04/16/2020 Provider: Diagnosis: Last Documented On 9:09AM By Karuna Chase ; [facility], [facility] Alogliptin Benzoate 25 MG Oral Tablet 04/16/2020 Pro vider: Diagnosis: Last Documented On 9:09AM By Karuna Chase ; [facility], [facility] Vitamin D3 25 MCG (1000 UT) Oral Tablet 04/06/2020 P rovider: Diagnosis: Last Documented On 9:09AM By Karuna Chase ; [facility], [facility] Lantus SoloStar 100 UNIT/ML Subcutaneous Solutio n Pen-injector 04/06/2020 Provider: Diagnosis: Last Documented On 9:09AM By Karuna Chase ; [facility], [facility] Meloxicam 15 MG Oral Tablet 04/04/2020 Provider: Diagnosis: Last Documented On 9:09AM By Karuna Chase ; [facility], [facility] glipiZIDE 10 MG Oral Tablet 04/04/2020 Provider: Diagnosis: Last Documented On 9:09AM By Karuna Chase ; [facility], [facility] Ezetimibe 10 MG Oral Tablet 04/04/2020 Provider: Diagnosis: Last Documented On 9:09AM By Karuna Chase ; [facility], [facility] amLODIPine Besylate 2.5 MG Oral Tablet 04/04/2020 Pr ovider: Diagnosis: Last Documented On 9:09AM By Karuna Chase ; [facility], [facility] Past Medications on file Bactrim DS 800-160MG Oral Tablet 06/23/2018 - 07/04/19 Provider: Aaron Tanner DPM Diagnosis: twice a day Last Documented On 9 12:06PM By Radha Hunter ; [facility], [facility] Keflex 500 MG OR CAPS 06/10/2018 - 06/13/2018 Provider : Sav Torres MD Diagnosis: Last Documented On 9 12:22PM By Jenna Boateng ; [facility], [facility] Island 7.5-325 MG OR TABS 06/09/2018 - 06/14/2018 Provi jaqui: Sav Torres MD Diagnosis: Last Documented On 9 1:46PM By Rehana Morales ; [facility], [facility] Island 7.5-325MG Oral Tablet 04/08/2018 - 04/15/2018 Pr ovider: Aaron Tanner DPM Diagnosis: 1-2 po q 4-6h prn pain (surgery 04/03/18) Last Documented On 9 10:16AM By Radha Hunter ; [facility], [facility] Island 7.5-325MG Oral Tablet 04/02/2018 - 04/09/2018 Pr ovider: Aaron Tanner DPM Diagnosis: 1-2 po q 4-6h prn pain (surgery 04/03/18) Last Documented On 9 9:50AM By Loly Muhammad ; [facility], [facility] Medications Administered Includes: Administered Medications from this encounter No Administered Medications Recorded Vital Signs Includes: Vital Signs from this encounter Vital Name 06/27/2018 08:56A Blood Pressure Sitting (mmHg) 126/71 Pulse Rate-Sitting (bpm) 76 Height (in) 72 Weight (lb) 215 Body Mass Index (kg/m2) 29.2 Body Surface Area (m2) 2.2 Note: jw Last Documented: On 06/27/2018 8:57AM ; [facility], [facility] Results Includes: Results discussed during this encounter No Results Recorded For Specified Dates History of Present Illness Includes: History of Present Illness from this encounter PEDRO No is a 58 year old male. - Medication list reviewed with patient. Social History Description Last Updated Alcohol use 06/20/2020 Last Documented On 9 8:56AM ; [facility], [facility] No tobacco use 01/21/2018 Last Documented On 9 8:56AM ; [facility], [facility] Smoking status : Former smoker 8 Last Documented On 9 8:56AM ; [facility], [facility] No recent change in diet 01/21/2018 Last Documented On 9 8:56AM ; [facility], [facility] Not a current smoker 01/21/2018 Last Documented On 9 8:56AM ; [facility], [facility] Not using drugs 01/21/2018 Last Documented On 9 8:56AM ; [facility], [facility] Procedures and Surgical History Includes: Procedures from this encounter Procedures Code Diagnosis Performing Provider Service L ocation Service Date Clinical summary provided to patient Last Documented On 9 8:56AM ; [facility], [facility] Medical History Includes: Medical History addressed during this encounter Description Last Updated neck surgery ~toe surgery ~acid reflux 0 06/20/2020 Last Documented On 9 8:56AM ; [facility], [facility] Arthritic joint problems 01/21/2018 Last Documented On 9 8:56AM ; [facility], [facility] History of diabetes mellitus 01/21/2018 Last Documented On 9 8:56AM ; [facility], [facility] Intermittent hypertension 01/21/2018 Last Documented On 9 8:56AM ; [facility], [facility] Family History Includes: Family History addressed during this encounter Description Last Updated Fraternal history of diabetes mellitus 0 06/23/2018 Last Documented On 9 8:56AM ; [facility], [facility] Maternal history of diabetes mellitus Last Documented On 9 8:56AM ; [facility], [facility] Family history of diabetes mellitus 12/31 Last Documented On 9 8:56AM ; [facility], [facility] Review of Systems Includes: Review of [...] Active Last Documented On 1 10:04AM ; [facility], [facility] Encounters Encounter Provider Location Date Check-In Time Check- Out Time Diagnosis Post Op Sav Torres MD [facility] 9 8:47AM 9:13AM Insurance Includes: Active Insurance Policies Plan Name Member ID Group # Subscriber Relationship Effect porfirio Dates 1 - [facility] [id number] Cristino oN Self Clinical Notes Includes: Clinical Notes from this encounter No Clinical Notes Recorded
--- OUTSIDE RECORDS SUMMARY | 2024-07-14 06:49 | XMS_ITS | Encounter Summary ---
Author Name [facility] [place] [facility] [facility] [place] Address [address] [place] [address] Care Team Providers Care Digital Cartographer Name Role Phone JOSUEJOOENEDINA Primary Care Provider Unavaila SHRUTHI Luis Primary [...] PART A May 30, 2024 PART A [id number] WIGGLESWO RTH,STEWA RT PATIENT MEDICARE (WNR) MEDICARE (M) PART B May 30, 2024 PART B [id number] WIGGLESWO RTH,STEWA RT PATIENT [facility] 2017 SELEC T RETIR ED May 16, 2018 [employer] [id number] WIGGLESWO RTH,STEWA RT PATIENT [facility] 2018 [employer] A Apr 01, 2017 DODA [id number] WIGGLESWO RTH,STEWA RT PATIENT [facility] 2024 PRIME RETIR ED Apr 01, 2024 [employer] [id number] [phone] WIGGLESWO RTH,AMY RT PATIENT Selected Encounter This section includes the information on record at [place] for the Encounter. Date/Time Encounter Type Encounter Description Reason Provider Source Jul 01, 2024 10:28 AM PH1 ASSMT&MGMT NQHP 5-10 TELEPHONE/ANCILLA RY ICD-10-CM Z71.89 Other specified counseling AMADA ROACH [facility] Encounter Template Text not used by [place] Assessments - Encounter Diagnoses This section includes the primary and secondary diagnoses documented for the Encounter. Date/Time Primary/Secondary Diagnosis Diagnosis Name Provider Source Jul 01, 2024 10:28 AM PRIMARY Other specified counseling AMADA ROACH [facility] Plan of Treatment: Future Appointments (+ 6 [...] 20 appointments. The data comes from all [facility]. Appointment Date/Time Appointment Type Appointme nt Facility Name Jul 15, 2024 09:00 AM AMBULATORY - NONE [facility] Jul 27, 2024 08:00 AM AMBULATORY - SURGERY [place] [facility] Jul 29, 2024 01:00 PM AMBULATORY - MEDICINE [facility] August 03, 2024 07:00 AM [facility] NONE [facility] Sep 23, 2024 10:00 AM AMBULATORY - MEDICINE [facility] Nov 03, 2024 09:40 AM AMBULATORY - SURGERY [place] [facility] Active, Pending, and Scheduled Orders This section includes a listing of several types of active, pending, and scheduled orders, including clinic medications orders, diagnostic test orders, procedure orders and consult orders; where the start date of the order is 45 days before the date of the Encounter or 45 days after the date of theEncounter. The data comes from all [facility]. Test Date/Time Test Type Test Details Facility Name Jun 26, 2024 09:07 AM Consult Order PAIN CLINI C ANESTHESIOLOGY/PAIN CD OUTPATIENT Cons Head Gre[employer] [facility] Jul 15, 2024 12:00 AM Imaging - Ultrasou nd Order FNA BX W/ ULTRASND GDN,1ST LESION [facility] Radiology Reports: +/- 30 days [...] Jun 29, 2024 12:58 PM U/S THYROID: RAFTYSHAWNKATE [id number] -[id number] M Exm Date: JUN 29, 2024@12:58 Req Phys: SHRUTHI HENLEY Loc: X-RAY/MRI/DOROTHE[place] (Req'g Loc Img Loc: ULTRASOUND Service: [place] [address] (Case [id number] COMPLETE) U/S THYROID (US Detailed) CPT:03194 Reason for Study: SEE CLINICAL HISTORY Clinical History: REASON FOR EXAM:Nodule/Lesion follow up PERTINENT PATIENT HISTORY: PROVIDER ExtPager# Report Status: Verified Date Reported: JUN 30, 2024 Date Verified: JUN 30, 2024 Home Service Consultant E-Sig: Report: EXAMINATION: THYROID ULTRASOUND CLINICAL INDICATIONS: [...] Interpreting Staff: CHIN CASTILLO, Radiologist Verified by railroad signal and switch operator for CHIN CASTILLO /CHIN LEES-CDOrville [facility] Jun 17, 2024 08:36 AM MRI C SPINE W/O CO NTRAST: KATE CARTER [id number] -1960 M Exm Date: JUN 17, 2024@08:36 Req Phys: SHRUTHI HENLEY [facility]Req'g Lo Img Loc: [facility] Service: [place] [address] (Case [id number] COMPLETE) MRI C SPINE W/O CONTRAST (MRI Detailed) CPT:94202 Reason for Study: SEE CLINICAL HISTORY Clinical History: STATUS OF PLAIN FILMS:Done, exam date/impression above. MRI Screening (Required): IMPLANTED DEVICE DOCUMENTATION 03/11/2024 09:29 Local Title: IMPLANTED CARDIAC DEVICE Standard Title: CLINICAL WARNING Patient has an Implanted Cardiac Device. Cardiac Device Type: BIV ICD Emt Intermediate: [employer] Device details: Generator - [employer], model [id number], SN [id number]. RA lead - [employer], model [id number], SN [id number]. RV lead - [employer], model [id number], SN [id number]. LV - [employer], model [id number], SN [id number]. Parameters: RA - threshold - 0.25v@0.5ms, 460 ohms, sensing - >5mV RV - threshold - 0.25v@0.5ms, 640 ohms, sensing - >12mV LV - threshold - 1.25v@0.5ms, 700 ohms. DFT's - were not assessed. Shock coil impedance - 73 ohms. Implant 03/10/2024 Dr. Mckinney Signed by: /es/ RUTHANN BARONE RN 03/11/2024 09:32 Does the [place] have any Cardiac Implants? ICD Does the have any implanted stimulators? None Does the [place] have cochlear implants? No Does the [place] have Cerebral aneurysm clip(s)? No Does the have any shrapnel? No If yes, where in your body? Please list other implants not listed above: MRI table has a weight limit of 551 lbs. [place]'s Weight: *198 lb [89.81 kg] (03/16/2024 10:02) Is this patient claustrophobic?: No REASON FOR EXAM: OTHER (provide detailed justification for your request) PERTINENT PATIENT HISTORY: Cervical radiculopathy Risk factors for GADOLINIUM NEPHROGENIC SYSTEMIC SCLEROSIS: Report Status: Verified Date Reported: JUN 17, 2024 Date Verified: JUN 17, 2024 Home Service Consultant E-Sig: Report: KATE PAVON RAUL 1960 EXAM: [...] Staff: FATUMA GARCIA, Staff Physician Verified by railroad signal and switch operator for FATUMA GARCIA /FATUMA [facility] Encounter Notes: All associated encounter notes This section contains the clinical notes associated to the Encounter. Date/Time Encounter Note(s) Provider Source Jul 01, 2024 10:28 AM INTERVENTIONAL RAD IOLOGY NURSING NOTE: LOCAL TITLE: INTERVENTIONAL RADIOLOGY CASE MANAGEMENT NOTE STANDARD TITLE: INTERVENTIONAL RADIOLOGY NURSING NOTE DATE OF NOTE: JUL 01, 2024@10:28 ENTRY DATE: JUL 01, 2024@10:28:29 AUTHOR: AMADA ROACH EXP COSIGNER: URGENCY: STATUS: COMPLETED Contacted pt. by phone, pt. is agreeable to 07/15/2024 at 0900 as the date/time for the Thyroid Biopsy, informed the pt. to report 30 minutes early and register at the Radiology desk, informed the pt. to have a light breakfast that morning, he can take his regular medications, I explained the procedure steps to the pt., I gave the pt. my contact information in case they need to reschedule or have questions, pt. expressed understanding, informed the pt. that the ordering Provider would receive a report in 3-5 days after the procedure, please arrange follow up for the pt., HAS please notify the pt. with a letter and protect the following appointment slots for date below: X-RAY/SPECIAL PROCEDURES/[place] at 9:00am /amando/ AMADA LEIJA RN Signed: 07/01/2024 10:30 Receipt Acknowledged By: 07/01/2024 10:37 /es/ Melina Henson Advanced Sales Director 07/01/2024 12:03 /es/ DONALD HENRY 07/02/2024 08:07 /es/ LUDWIG HAMILTON Diagnostic Machined Parts Metal Sprayer 07/08/2024 15:43 /es/ ALFRED MORGAN DIAG. RADIOL TECH. 07/01/2024 10:56 /es/ Shruthi Henley MD Primary Care Physician [facility]ACH[facility]
--- OUTSIDE RECORDS SUMMARY | 2024-07-14 06:49 | XMS_ITS | Encounter Summary ---
Author Name [facility] [facility] [place] Address [address] [place] [id number] Care Team Providers Care Air Brush Operator Name Role Phone GODFREY SALAS Primary [...] PART A May 30, 2024 PART A [id number] WIGGLESWO RTH,STEWA RT PATIENT MEDICARE (WNR) MEDICARE (M) PART B May 30, 2024 PART B [id number] WIGGLESWO RTH,STEWA RT PATIENT [facility] 2017 SELEC T RETIR ED May 16, 2018 [facility] [id number] [phone] WIGGLESWO RTH,STEWA RT PATIENT [facility] 2017 [employer] A Apr 01, 2017 DODA [id number] WIGGLESWO RTH,STEWA RT PATIENT [facility] 2024 PRIME RETIR ED Apr 01, 2024 [employer] [id number] [phone] WIGGLESWO RTH,STEWA RT PATIENT Selected Encounter This section includes the information on record at [place] for the Encounter. Date/Time Encounter Type Encounter Description Reason Pro vider Source Jul 08, 2024 08:13 AM Outpatient Encounter EVENT (HISTORICAL) IHE Encounter Template Text not used by [place] Plan of Treatment: Future Appointments (+ 6 months) and Future Tests (+/- 45 days) The Plan of Treatment section includes future care activities for the patient from all [place] treatmentfacilities. This section includes future appointments and future orders which are active, pending or scheduled. Future Appointments This section includes appointments that were scheduled to occur 6 months from the date of the Encounter, up to a maximum of 20 appointments. The data comes from all [place] treatment [facility]. Appointment Date/Time Appointment Type Appointme nt Facility Name Jul 15, 2024 09:00 AM AMBULATORY - NONE [place] [facility] Jul 27, 2024 08:00 AM AMBULATORY - SURGERY [place] [facility] Jul 29, 2024 01:00 PM AM[facility]ULATORY - [facility]ICINE [place] [facility] August 03, 2024 07:00 AM [facility] - NONE [place] [facility] Sep 23, 2024 10:00 AM AM[facility]UL[facility]ORY - MEDICINE [place] [facility] Nov 03, 2024 09:40 AM AMBULATORY - SURGERY [place] [facility] Active, Pending, and Scheduled Orders This section includes a listing of several types of active, pending, and scheduled orders, including clinic medications orders, diagnostic test orders, procedure orders and consult orders; where the start date of the order is 45 days before the date of the Encounter or 45 days after the date of theEncounter. The data comes from all [facility] [address]. Test Date/Time Test Type Test Details Facility Name Jun 26, 2024 09:07 AM Consult Order PAIN CLINI C ANESTHESIOLOGY/PAIN CD OUTPATIENT Cons Geotechn[employer] Operating Engineer's Choice [facility] Jul 15, 2024 12:00 AM Imaging - Ultrasou nd Order FNA BX W/ ULTRASND GDN,1ST LES[facility] Radiology Reports: +/- 30 days of [...] the Encounter. The data comes from all [place] treatment facilities. Date/Time Radiology Report Provider Source Jun 29, 2024 12:58 PM U/S THYROID: KATE CARTER [id number] -1960 M Exm Date: JUN 29, 2024@12:58 Req Phys: MARTHA HENLEY Loc: X-RAY/MRI/[place] (Req'g Loc Img Loc: ULTRASOUND Service: [place] [address] (Case [id number] COMPLETE) U/S THYROID (US Detailed) CPT:25476 Reason for Study: SEE CLINICAL HISTORY Clinical History: REASON FOR EXAM:Nodule/Lesion follow up PERTINENT PATIENT HISTORY: PROVIDER ExtPager# Report Status: Verified Date Reported: JUN 30, 2024 Date Verified: JUN 30, 2024 Chemistry Department Chair E-Sig: Report: EXAMINATION: THYROID ULTRASOUND CLINICAL INDICATIONS: [...] Interpreting Staff: CHIN CASTILLO, Radiologist Verified by baller tender for CHIN CASTILLO /JAMMIE CASTILLO,CHIN UNDERWOOD-CDD [facility] Jun 17, 2024 08:36 AM MRI C SPINE W/O CO NTRAST: KATE CARTER [id number] -1960 M Exm Date: JUN 17, 2024@08:36 Req Phys: MARTHA HENLEY Pat Loc: XIOMY PACT JACI 1-2 (Req'g Lo Img Loc: [facility] Service: [place] [address] (Case [id number] COMPLETE) MRI C SPINE W/O CONTRAST (MRI Detailed) CPT:82978 Reason for Study: SEE CLINICAL HISTORY Clinical History: STATUS OF PLAIN FILMS:Done, exam date/impression above. MRI Screening (Required): IMPLANTED DEVICE DOCUMENTATION 03/11/2024 09:29 Local Title: IMPLANTED CARDIAC DEVICE Standard Title: CLINICAL WARNING Patient has an Implanted Cardiac Device. Cardiac Device Type: BIV ICD Crate Builder: [employer] Device details: Generator - [employer], model [id number], SN [id number]. RA lead - [employer], model [id number], SN [id number]. RV lead - [employer], model 7122Q, SN [id number]. LV - [employer], model 1458QL, SN [id number]. Parameters: RA - threshold - 0.25v@0.5ms, 460 ohms, sensing - >5mV RV - threshold - 0.25v@0.5ms, 640 ohms, sensing - >12mV LV - threshold - 1.25v@0.5ms, 700 ohms. DFT's - were not assessed. Shock coil impedance - 73 ohms. Implant 03/10/2024 Dr. Mckinney Signed by: /es/ RUTHANN BARONE RN 03/11/2024 09:32 Does the [place] have any Cardiac Implants? ICD Does the have any implanted stimulators? None Does the have cochlear implants? No Does the have Cerebral aneurysm clip(s)? No Does the have any shrapnel? No If yes, where in your body? Please list other implants not listed above: MRI table has a weight limit of 551 lbs. [place]'s Weight: *198 lb [89.81 kg] (03/16/2024 10:02) Is this patient claustrophobic?: No REASON FOR EXAM: OTHER (provide detailed justification for your request) PERTINENT PATIENT HISTORY: Cervical radiculopathy Risk factors for GADOLINIUM NEPHROGENIC SYSTEMIC SCLEROSIS: Report Status: Verified Date Reported: JUN 17, 2024 Date Verified: JUN 17, 2024 Chemistry Department Chair E-Sig: Report: KATE CARTER 1960 EXAM: MRI [...] Staff: FATUMA GARCIA, Staff Physician Verified by baller tender for FATUMA GARCIA /OCTAVIA GARCIA,[facility]UMA [facility]
--- OUTSIDE RECORDS SUMMARY | 2024-07-14 06:49 | XMS_ITS | Encounter Summary ---
Author Name [facility] [place] [place] [facility] [place] [place] Address [address] [place] [id number] Care Team Providers Care Cream Dumper Name Role Phone JOSE MIGUELMARYSECIRO JOOENEDINA Primary [...] PART A May 30, 2024 PART A [id number] WIGGLESWO RTH,STEWA RT PATIENT MEDICARE (WNR) MEDICARE (M) PART B May 30, 2024 PART B [id number] WIGGLESWO RTH,STEWA RT PATIENT [facility] 2017 SELEC T RETIR ED May 16, 2018 [facility] [id number] WIGGLESWO RTH,STEWA RT PATIENT [facility] 2017 PRIME [employer] A Apr 01, 2017 DODA [id number] WIGGLESWO RTH,STEWA RT PATIENT [facility] 2024 PRIME RETIR ED Apr 01, 2024 PR[facility]IRED [id number] [phone] WIGGLESWO RTH,AMY RT PATIENT Selected Encounter This section includes the information on record at [place] for the Encounter. Date/Time Encounter Type Encounter Description Reason Provider Source Feb 07, 2024 09:00 AM OFFICE O/P EST MOD 30 MIN OPHTHALMOLOGY ICD-10-CM H35.3132 Nexdtve age-related mclr degn, bilateral, intermed dry stage PIERRE,DIYA B IHE Encounter Template Text not used by [facility] Assessments - Encounter Diagnoses This section includes the primary and secondary diagnoses documented for the Encounter. Date/Time Primary/Secondary Diagnosis Diagnosis Name Provider Source Mar 09, 2024 12:33 PM PRIMARY Nexdtve age-related mclr degn, bilateral, intermed dry stage PIERRE,[facility]YA B [facility] Plan of Treatment: Future Appointments (+ 6 months) and Future Tests (+/- 45 days) The Plan of Treatment section includes future care activities for the patient from all [place] treatmentfacilities. This section includes future appointments and future orders which are active, pending or scheduled. Future Appointments This section includes appointments that were scheduled to occur 6 months from the date of the Encounter, up to a maximum of 20 appointments. The data comes from all [place] treatment facilities. Appointment Date/Time Appointment Type Appointme nt Facility Name Feb 20, 2024 02:00 PM [facility]ATORY - N[place] [facility] Feb 21, 2024 02:30 PM [facility] Mar 16, 2024 10:30 AM [facility]ONE [place] [facility] Mar 23, 2024 10:00 AM AMBULATORY - MEDICINE [place] NGTON[facility] Apr 08, 2024 08:15 AM AMBULATORY - MEDICINE [place] [facility] [facility] Apr 16, 2024 01:30 PM AM[facility]ATORY - NONE [place] [facility] Apr 16, 2024 02:15 PM AM[place]ATORY - NONE [place] [facility] May 05, 2024 09:40 AM AMBULATORY - SURGERY [place] [facility] Jun 03, 2024 10:00 AM AM[place]ULATORY - NONE [place] [facility] Jun 05, 2024 09:30 AM AM[facility]ATORY - NONE [place] [facility] Jun 17, 2024 08:00 AM AMBULATORY - MEDICINE [place] [facility] Jun 17, 2024 09:00 AM AM[facility]ULATORY - NONE [place] Jun 25, 2024 08:00 AM AMBULATORY - MEDICINE [place] [facility]AN[facility] Jun 26, 2024 08:20 AM AMBULATORY - SURGERY [place] ULISES [facility] Jun 29, 2024 01:30 PM AM[facility]ULATORY - NONE [place] [facility] Jul 15, 2024 09:00 AM AMBULATORY - NONE [place] Jul 27, 2024 08:00 AM AMBULATORY - SURGERY [place] [facility] Jul 29, 2024 01:00 PM [facility]ULATORY - [facility] August 03, 2024 07:00 AM [facility] [place] [facility] Lab Results: +/- 30 days [...] Type Comment Jan 14, 2024 10:06 AM [facility] PANEL 1 PLASMA Specimen Type: [...] Dec 27, 2023 09:21 AM Reporting Lab: [address] [id number] Performing Lab: [address] [id number] CREATININE 1.34 mg/dL H 0.72-1.25 UREA NITROGEN [...] the Encounter. Date/Time Encounter Note(s) Provider Source Feb 07, 2024 04:21 PM ADDENDUM: LOCAL TITLE: Addendum STANDARD TITLE: ADDENDUM DATE OF NOTE: FEB 07, 2024@16:21:12 ENTRY DATE: FEB 07, 2024@16:21:13 AUTHOR: SORAYA DACOSTA EXP COSIGNER: URGENCY: STATUS: COMPLETED Per Dr. Pierre, please cancel the retina recall in 6 months. Patient can be seen with glaucoma as scheduled and Dr. Pierre can see at that time if needed. /es/ LISS MAZARIEGOS, RN OPHTHALMOLOGY SHANK SORTER/PROCESSING MGR Signed: 02/07/2024 16:21 Receipt Acknowledged By: 02/11/2024 10:57 /es/ Pam Morse Advanced Acute Care Physician 02/11/2024 15:37 /es/ LÁZARO BHARDWAJ --- Original Document --- 02/07/24 OPHTHALMOLOGY CLINIC PHYSICIAN NOTE : Please see scanned note for details of this examination. 7mo retina f/u Date VA:OD ^ VA:OS IOP Notes 02/07/24 20-2/-- ^ 20-1/-- 02/09 Lprost ou 01/14/24 20-1 ^ 20-1 L'prost 07/16/23 25-1/ [...] questionable hx of SLT 2016 OS at [facility] Other: mother with glaucoma Right Eye: # glaucoma suspect vs mild POAG -HVF today full, MD -0.76 and stable - Last RNFL stable 07/2023. - IOP 14 on Lprost >Continue Lprost qHS # Age related NS cataract - Not VS. 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 - IOP 16 on Lprost >Continue Lprost qHS # Age related NS cataract - Not VS. >Observe, may be good phaco MIGS candidate when ready # Dry AMD - OCT/VA stable > obs #mild NPDR with trace DME > obs Plan: obs F/U: 6 months glaucoma as scheduled(Ignacio can check OCT if needed) with OCT/RNFL * In VA column= without correction * In IOP column= didn't take most recent dose, or otherwise non-adherent In A/P= Not Addressed at this visit /es/ DIYA PIERRE OPHTHALMOLOGY SURGERY ATTENDING Signed: 02/07/2024 15:23 SORAYA DACOSTA-[facility]D [facility] Feb 07, 2024 03:15 PM OPHTHALMOLOGY RESI DENT NOTE: LOCAL TITLE: OPHTHALMOLOGY CLINIC PHYSICIAN NOTE STANDARD TITLE: OPHTHALMOLOGY RESIDENT NOTE DATE OF NOTE: FEB 07, 2024@15:15 ENTRY DATE: FEB 07, 2024@15:16 AUTHOR: DIYA PIERRE EXP COSIGNER: URGENCY: STATUS: COMPLETED OPHTHALMOLOGY CLINIC PHYSICIAN NOTE Has ADDENDA Please see scanned note for details of this examination. 7mo retina f/u Date VA:OD ^ VA:OS IOP Notes 02/07/24 20-2/-- ^ 20-1/-- 02/09 Lprost ou 01/14/24 20-1 ^ 20-1 L'prost 07/16/23 25-1/ [...] questionable hx of SLT 2016 OS at [place] Other: mother with glaucoma Right Eye: # glaucoma suspect vs mild POAG -HVF today full, MD -0.76 and stable - Last RNFL stable 07/2023. - IOP 14 on Lprost >Continue Lprost qHS # Age related NS cataract - Not VS. 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 - IOP 16 on Lprost >Continue Lprost qHS # Age related NS cataract - Not VS. >Observe, may be good phaco MIGS candidate when ready # Dry AMD - OCT/VA stable > obs #mild NPDR with trace DME > obs Plan: obs F/U: 6 months glaucoma as scheduled(Ignacio can check OCT if needed) with OCT/RNFL * In VA column= without correction * In IOP column= didn't take most recent dose, or otherwise non-adherent In A/P= Not Addressed at this visit /amando/ DIYA PIERRE OPHTHALMOLOGY SURGERY ATTENDING Signed: 02/07/2024 15:23 02/07/2024 ADDENDUM STATUS: COMPLETED Per Dr. Pierre, please cancel the retina recall in 6 months. Patient can be seen with glaucoma as scheduled and Dr. Pierre can see at that time if needed. /es/ MIKAEL MAZARIEGOSN, RN OPHTHALMOLOGY SHANK SORTER/PROCESSING MGR Signed: 02/07/2024 16:21 Receipt Acknowledged By: 02/11/2024 10:57 /es/ Pam Morse Advanced Acute Care Physician 02/11/2024 15:37 /es/ LÁZARO BHARDWAJ 06/08/2024 ADDENDUM STATUS: COMPLETED 6 MONTH GLAUCOMA WITH RNFL, MAC, OCT AND DFE PER 1015 ORDER sched w/pt Ed Ophthal/Gla/Att1/Cd 07/27/2024@08:00 Future /amando/ KASSIE Tolliver [facility] MSA Signed: 06/08/2024 13:22 DIYA PIERRE [facility] Feb 07, 2024 09:32 AM SURGERY SCANNED NO TE: LOCAL TITLE: OPHTHALMOLOGY SCANNING NOTE STANDARD TITLE: SURGERY SCANNED NOTE DATE OF NOTE: FEB 07, 2024@09:32 ENTRY DATE: FEB 11, 2024@09:32:09 AUTHOR: EMILY BRUSH EXP COSIGNER: URGENCY: STATUS: COMPLETED The scanned document may be viewed in [employer]. /amando/ EMILY BRUSH UNION REPRESENTATIVE Signed: 02/11/2024 09:32 EMILY BRUSH [facility] Feb 07, 2024 08:57 AM OPHTHALMOLOGY NOTE : LOCAL TITLE: OPHTHALMOLOGY NURSE/TECH CLINIC NOTE STANDARD TITLE: OPHTHALMOLOGY NOTE DATE OF NOTE: FEB 07, 2024@08:57 ENTRY DATE: FEB 07, 2024@08:57:14 AUTHOR: DORINDA LA EXP COSIGNER: URGENCY: STATUS: COMPLETED 7mo retina f/u Date VA:OD ^ VA:OS IOP Notes 02/07/24 20-2/-- ^ -/-- 02/09 Lprost ou 01/14/24 20- ^ - L'prost 07/16/23 25-1/ -- ^ 25 / -- 07/03/23 20-/ -- ^ 25-/ -- 01/0902/19/23+2/ -- ^ 20+/ -- 03/16 Sub-specialty Specific Hx: IOP pre-treatment = 13 17 Goal = </= mid-teens Pach = 552 554 Gonio = open OU (post dilation) Last VF = 11/2022 Last RNFL=07/2023 O-Meds: Lprost OU Surg/laser: questionable hx of SLT 2016 OS at [facility] Other: mother with glaucoma Right Eye: # [...] A/P= Not Addressed at this visit /amando/ DORINDA LA Ophthalmology tech Signed: 02/07/2024 09:04 DORINDA LA-[facility] Feb 07, 2024 08:54 AM SURGERY NURSING NO TE: LOCAL TITLE: SURGERY CLINIC INTAKE NOTE STANDARD TITLE: SURGERY NURSING NOTE DATE OF NOTE: FEB 07, 2024@08:54 ENTRY DATE: FEB 07, 2024@08:56:46 AUTHOR: DORINDA LA EXP COSIGNER: URGENCY: STATUS: COMPLETED The patient was given a list of his/her medications, instructed to review and discuss any changes or problems with their provider. Patient advised to carry a list of current medications and any allergies with them in the event of emergency situations. Allergies: local and remote VANCOMYCIN, GABAPENTIN, PREGABALIN, SIMVASTATIN, ROSUVASTATIN FACILITY ALLERGY/ADR -------- 581^[facility]^581 VANCOMYCIN Medication Reconciliation MRR1 - Med Reconciliation INCLUDED IN THIS LIST: Alphabetical list of active outpatient prescriptions dispensed from this [place] (local) and dispensed from another [place] or [facility] facility (remote) as well as inpatient orders (local pending and active), local clinic medications, locally documented non-VA medications, and local prescriptions that have or been discontinued in the past 90 days. Non-VA Meds Last Documented On: August 20, 2023 NOTE The display of VA prescriptions dispensed from another [place] or [facility] facility (remote) is limited to active outpatient prescription entries matched to National Drug File at the originating site and may not include some items such as investigational drugs, compounds, etc. NOT INCLUDED IN THIS LIST: Medications self-entered by the patient into personal health records (i.e. [employer]) are NOT included in this list. Non-VA medications documented outside this [place], remote inpatient orders (regardless of status) and remote clinic medications are NOT included in this list. The patient and provider must always discuss medications the patient is taking, regardless of where the medication was dispensed or obtained. OUTPT ACETAMINOPHEN 325MG TAB (Status = Discontinued) TAKE TWO TABLETS BY MOUTH TWICE A DAY NEEDED FOR PAIN - DO NOT TAKE MORE THAN 12 TABLETS PER DAY Rx# [id number] Last Released: 11/26/23 Qty/Days Supply: 100 Rx Expiration Date: 07/28/24 Refills Remainin OUTPT ACETAMINOPHEN 325MG TAB (Status = Active) TAKE TWO TABLETS BY MOUTH TWICE A DAY NEEDED FOR PAIN - DO NOT TAKE MORE THAN 12 TABLETS PER DAY Rx# [id number] Last Released: 01/16/24 Qty/Days Supply: 100/30 Rx Expiration Date: 01/14/25 Refills Remainin OUTPT ARTIFICIAL TEARS POLYVINYL ALCOHOL (Status = Discontinued) PUT 1 DROP IN EYE(S) FOUR TIMES A DAY NEEDED FOR DRY EYES Rx# [id number] Last Released: 12/25/22 Qty/Days Supply: Rx Expiration Date: 12/22/23 Refills Remainin Non-VA ASCORBIC ACID 500MG TAB TAKE TWO TABLETS BY MOUTH DAILY OUTPT ASPIRIN 81MG EC TAB (Status = Discontinued) TAKE ONE TABLET BY MOUTH DAILY FOR HEART Rx# [id number] Last Released: 11/01/23 Qty/Days Supply: Rx Expiration Date: 02/14/24 Refills Remainin Indication: FOR HEART OUTPT ASPIRIN 81MG EC TAB (Status = Active) TAKE ONE TABLET BY MOUTH DAILY FOR HEART Rx# [id number] Last Released: 01/31/24 Qty/Days Supply: Rx Expiration Date: 01/29/25 Refills Remainin Indication: FOR HEART Non-VA CENTRUM SILVER TABLET TAKE ONE TABLET BY MOUTH DAILY OUTPT CHOLECALCIF 25MCG (D3-1,000UNIT) TAB (Status = Discontinued) TAKE ONE TABLET BY MOUTH DAILY FOR VITAMIN D SUPPLEMENT Rx# [id number] Last Released: 10/25/23 Qty/Days Supply: Rx Expiration Date: 01/09/24 Refills Remainin OUTPT CHOLECALCIF 25MCG (D3-1,000UNIT) TAB (Status = Active) TAKE ONE TABLET BY MOUTH DAILY FOR VITAMIN D SUPPLEMENT Rx# [id number] Last Released: 12/26/23 Qty/Days Supply: Rx Expiration Date: 12/03/24 Refills Remainin OUTPT CLOPIDOGREL BISULFATE 75MG TAB (Status = Active) TAKE ONE TABLET BY MOUTH DAILY TO THIN BLOOD Rx# [id number] Last Released: 10/25/23 Qty/Days Supply: Rx Expiration Date: 02/14/24 Refills Remainin Indication: TO THIN BLOOD OUTPT DEXTRAN 70/GLYCER 0.2%/HYPROMEL 0.3% OPH (Status = Discontinued) PUT 1 DROP IN EYE(S) FOUR TIMES A DAY NEEDED FOR DRY EYES Rx# [id number] Last Released: 02/25/23 Qty/Days Supply: 45 Rx Expiration Date: 02/20/24 Refills Remainin Indication: FOR DRY EYES OUTPT EMPAGLIFLOZIN 10MG TAB (Status = Active) TAKE ONE TABLET BY MOUTH EVERY MORNING FOR HEART FAILURE Rx# [id number] Last Released: 01/21/24 Qty/Days Supply: Rx Expiration Date: 09/25/24 Refills Remainin Indication: FOR HEART FAILURE OUTPT EZETIMIBE 10MG TAB (Status = Active) TAKE ONE TABLET BY MOUTH EVERY EVENING FOR CHOLESTEROL Rx# [id number] Last Released: 01/18/24 Qty/Days Supply: Rx Expiration Date: 09/25/24 Refills Remainin Indication: FOR CHOLESTEROL OUTPT FLUTICASONE PROP 50MCG 120D NASAL INHL (Status = Discontinued) USE 1 SPRAY IN EACH NOSTRIL DAILY FOR NASAL ALLERGY Rx# [id number] Last Released: Qt/ Supply: Rx Expiration Date: 10/22/24 Refills Remainin OUTPT FLUTICASONE PROP 50MCG 120D NASAL INHL (Status = Active) USE 1 SPRAY IN EACH NOSTRIL DAILY FOR NASAL ALLERGY Rx# [id number] Last Released: 02/01/24 Qty/Days Supply: Rx Expiration Date: 11/11/24 Refills Remainin OUTPT GLIPIZIDE 10MG TAB (Status = Discontinued) TAKE TWO TABLETS BY MOUTH TWICE A DAY FOR DIABETES Rx# [id number] Last Released: 10/01/23 Qty/Days Supply: Rx Expiration Date: 12/19/23 Refills Remainin OUTPT GLIPIZIDE 10MG TAB (Status = Active) TAKE TWO TABLETS BY MOUTH TWICE A DAY FOR DIABETES Rx# [id number] Last Released: 12/13/23 Qty/Days Supply: Rx Expiration Date: 12/10/24 Refills Remainin OUTPT INSULIN,GLARGINE-YFGN 100UNIT/ML *PEN* (Status = Active) INJECT 17 UNITS UNDER THE SKIN DAILY FOR BLOOD SUGAR -DISCARD PEN AFTER 28 DAYS OF USE Rx# [id number] Last Released: 12/30/23 Qty/Days Supply: Rx Expiration Date: 10/15/24 Refills Remainin Indication: FOR BLOOD SUGAR OUTPT KETOTIFEN 0.025%(EQV TO 0.035%) OPH SOLN (Status = Discontinued) PUT 1 DROP IN BOTH EYES TWICE A DAY FOR EYE IRRITATION Rx# [id number] Last Released: 12/25/22 Qty/Days Supply: Rx Expiration Date: 12/22/23 Refills Remainin Indication: FOR EYE IRRITATION OUTPT LATANOPROST 0.005% OPH SOLN (Status = Discontinued) PUT 1 DROP IN BOTH EYES AT BEDTIME FOR GLAUCOMA Rx# [id number] Last Released: 11/13/23 Qty/Days Supply: Rx Expiration Date: 12/22/23 Refills Remainin Indication: FOR GLAUCOMA OUTPT LATANOPROST 0.005% OPH SOLN (Status = Active) PUT 1 DROP IN BOTH EYES AT BEDTIME FOR GLAUCOMA Rx# [id number] Last Released: 11/18/23 Qty/Days Supply: Rx Expiration Date: 02/16/24 Refills Remainin Indication: FOR GLAUCOMA OUTPT LIDOCAINE 5% OINT (Status = Discontinued) APPLY SMALL AMOUNT TO AFFECTED AREA DAILY FOR PAIN Rx# [id number] Last Released: 01/11/23 Qty/Days Supply: 7030 Rx Expiration Date: 01/09/24 Refills Remainin Non-VA MAGNESIUM OXIDE 420MG TAB TAKE TWO TABLETS BY MOUTH DAILY OUTPT METFORMIN HCL 500MG 24HR SA TAB (Status = Discontinued) TAKE TWO TABLETS BY MOUTH TWICE A DAY FOR DIABETES Rx# [id number] Last Released: 10/23/23 Qty/Days Supply: 36090 Rx Expiration Date: 01/09/24 Refills Remainin OUTPT METFORMIN HCL 500MG 24HR SA TAB (Status = Active) TAKE TWO TABLETS BY MOUTH TWICE A DAY FOR DIABETES Rx# [id number] Last Released: Qt/Days Supply: 12030 Rx Expiration Date: 02/05/25 Refills Remainin OUTPT METOPROLOL SUCCINATE 100MG SA TAB (Status = Active) TAKE ONE AND ONE-HALF TABLETS BY MOUTH DAILY FOR HEART Rx# [id number] Last Released: 12/19/23 Qty/Days Supply: 135/90 Rx Expiration Date: 09/25/24 Refills Remainin Indication: FOR HEART OUTPT MULTIVIT/OPHTH AREDS2/LUTE/ZEAX CAP/TAB (Status = Discontinued) TAKE 1 SOFTGEL BY MOUTH TWICE A DAY AFTER MEALS FOR EYE HEALTH Rx# [id number] Last Released: 12/05/23 Qty/Days Supply: 120/60 Rx Expiration Date: 01/09/24 Refills Remainin OUTPT MULTIVIT/OPHTH AREDS2/LUTE/ZEAX CAP/TAB (Status = Active) TAKE 1 SOFTGEL BY MOUTH TWICE A DAY AFTER MEALS FOR EYE HEALTH Rx# [id number] Last Released: 01/23/24 Qty/Days Supply: 180 Rx Expiration Date: 01/17/25 Refills Remainin OUTPT MUPIROCIN 2% OINT (Status = Discontinued) APPLY SMALL AMOUNT TO AFFECTED AREA TWICE A DAY FOR SKIN INFECTION Rx# [id number] Last Released: 04/11/23 Qty/Days Supply: Rx Expiration Date: 04/11/24 Refills Remainin Indication: FOR SKIN INFECTION OUTPT NITROGLYCERIN 0.3MG SL TAB (Status = Discontinued) DISSOLVE ONE TABLET UNDER THE TONGUE EVERY 5 MINUTES UP TO 3 DOSES FOR CHEST PAIN -IF NO RELIEF CALL 911 Rx# [id number] Last Released: 02/19/23 Qty/Days Supply: 100/ Rx Expiration Date: 02/14/24 Refills Remainin Indication: FOR CHEST PAIN OUTPT OMEPRAZOLE 20MG EC CAP (Status = Discontinued) TAKE ONE CAPSULE BY MOUTH TWICE A DAY FOR STOMACH. TAKE ON AN EMPTY STOMACH Rx# [id number] Last Released: 10/23/23 Qty/Days Supply: 180 Rx Expiration Date: 01/09/24 Refills Remainin OUTPT OMEPRAZOLE 20MG EC CAP (Status = Active) TAKE ONE CAPSULE BY MOUTH TWICE A DAY FOR STOMACH. TAKE ON AN EMPTY STOMACH Rx# [id number] Last Released: 02/06/24 Qty/Days Supply: 180 Rx Expiration Date: 02/05/25 Refills Remainin OUTPT ROSUVASTATIN CA 40MG TAB (Status = Active) TAKE ONE TABLET BY MOUTH DAILY FOR CHOLESTEROL Rx# [id number] Last Released: 01/22/24 Qty/Days Supply: 90 Rx Expiration Date: 09/25/24 Refills Remainin Indication: FOR CHOLESTEROL OUTPT SACUBITRIL 49MG/VALSARTAN 51MG TAB (Status = Discontinued) TAKE 1 TABLET BY MOUTH TWICE A DAY FOR HEART FAILURE - THIS IS A DOSE INCREASE. START THIS INCREASED DOSE ON 07/31/2023 Rx# [id number] Last Released: 10/09/23 Qty/Days Supply: 180 Rx Expiration Date: 07/16/24 Refills Remainin Indication: FOR HEART FAILURE OUTPT SACUBITRIL 97MG/VALSARTAN 103MG TAB (Status = Discontinued) TAKE 1 TABLET BY MOUTH TWICE A DAY FOR HEART FAILURE DOSE INCREASE Rx# [id number] Last Released: 12/06/23 Qty/Days Supply: 180 Rx Expiration Date: 02/27/24 Refills Remainin Indication: FOR HEART FAILURE OUTPT SACUBITRIL 97MG/VALSARTAN 103MG TAB (Status = Active/Suspended) TAKE 1 TABLET BY MOUTH TWICE A DAY FOR HEART FAILURE Rx# [id number] Last Released: Qty Supply: Rx Expiration Date: 01/29/25 Refills Remainin Indication: FOR HEART FAILURE OUTPT SPIRONOLACTONE 25MG TAB (Status = Active) TAKE ONE TABLET BY MOUTH DAILY FOR HEART FAILURE Rx# [id number] Last Released: 12/17/23 Qty/Days Supply: Rx Expiration Date: 09/25/24 Refills Remainin Indication: FOR HEART FAILURE SUPPLIES OUTPT ACCU-CHEK GUIDE (GLUCOSE) TEST STRIP (Status = ) USE 1 STRIP TO TEST BLOOD SUGAR DIRECTED Rx# [id number] Last Released: 12/16/23 Qty/Days Supply: 200/90 Rx Expiration Date: 01/09/24 Refills Remainin OUTPT NEEDLE,PEN 32G,4MM (Status = Discontinued) USE 1 NEEDLE UNDER THE SKIN EVERY DAY Rx# [id number] Last Released: 01/10/23 Qty/Days Supply: 100/90 Rx Expiration Date: 01/09/24 Refills Remainin /amando/ DORINDA LA Ophthalmology tech Signed: 02/07/2024 08:57 DORINDA [place] [facility]
--- OUTSIDE RECORDS SUMMARY | 2024-07-14 06:50 | XMS_ITS | Encounter Summary ---
Author Name [facility] of [facility] Affairs ([place]) Organization [facility] Address [address] [place] [id number] Care Team Providers Care Relief Man Name Role Phone JOSUE JOOENEDINA Primary Care [...] PART A May 30, 2024 PART A [id number] WIGGLESWO RTH,STEWA RT PATIENT MEDICARE (WNR) MEDICARE (M) PART B May 30, 2024 PART B [id number] WIGGLESWO RTH,STEWA RT PATIENT [facility] 2017 SELEC T RETIR ED May 16, 2018 [facility] RETIRED [id number] WIGGLESWO RTH,STEWA RT PATIENT [facility] 2017 [employer] A Apr 01, 2017 DODA [id number] WIGGLESWO RTH,STEWA RT PATIENT [facility] 2024 PRIME RETIR ED Apr 01, 2024 [employer] [id number] [phone] WIGGLESWO RTHAMY RT PATIENT Selected Encounter This section includes the information on record at [place] for the Encounter. Date/Time Encounter Type Encounter Description Reason Provider Source Nov 05, 2023 08:40 AM OFFICE O/P EST MOD 30 MIN PODIATRY ICD-10-CM E11.40 Type 2 diabetes mellitus with diabetic neuropathy, unsp LIA ROMERO I[facility] Encounter Template Text not used by [place] Assessments - Encounter Diagnoses This section includes the primary and secondary diagnoses documented for the Encounter. Date/Time Primary/Secondary Diagnosis Diagnosis Name Provider Source Nov 05, 2023 09:32 AM PRIMARY Type 2 diabetes mellitus with diabetic neuropathy, unsp LIA ROMERO [facility] Nov 05, 2023 09:32 AM SECONDARY Plantar fascial fibromatosis LIA ROMERO [facility] Plan of Treatment: Future Appointments (+ 6 months) and Future Tests (+/- 45 days) The Plan of Treatment section includes future care activities for the patient [facility]. This section includes future appointments and future orders which are active, pending or scheduled. Future Appointments This section includes appointments that were scheduled to occur 6 months from the date of the Encounter, up to a maximum of 20 appointments. The data comes from all [place] treatment facilities. Appointment Date/Time Appointment Type Appointme nt Facility Name Nov 20, 2023 03:00 PM AMBULATORY - MEDICINE [facility] Nov 26, 2023 10:30 AM [facility] Dec 12, 2023 04:00 PM [facility] - MEDICINE [facility] Jan 01, 2024 08:30 AM AMBULATORY - REHAB MEDICIN E [facility] Jan 14, 2024 08:30 AM AMBULATORY - SURGERY [place] [facility] Jan 27, 2024 01:00 PM AMBULATORY - MEDICINE [facility] Jan 29, 2024 03:00 PM AMBULATORY - MEDICINE [facility] Feb 07, 2024 09:00 AM AMBUL[facility]ORY - SURGERY [place] [facility] Feb 20, 2024 02:00 PM [facility]ORY - NONE [place] Feb 21, 2024 02:30 PM AMBULATORY - MEDICINE [facility] Mar 16, 2024 10:30 AM AMBULATORY - NONE [facility] Mar 23, 2024 10:00 AM [facility] Apr 08, 2024 08:15 AM AM[facility]UL[facility] - MEDICINE [facility] Apr 16, 2024 01:30 PM AMBULATORY - NONE [facility] Apr 16, 2024 02:15 PM AMBULATORY - NONE [facility] May 05, 2024 09:40 AM AMBULATORY - SURGERY [facility] Lab Results: +/- 30 days of [...] Type Comment Nov 05, 2023 09:34 AM [facility] PAN[facility] 1 PLASMA Specimen Type: PLASMA [...] Oct 22, 2023 09:51 AM Reporting Lab: [address] [address] Performing Lab: [address] [address] CREATININE 1.24 mg/dL 0.72-1.25 UREA NITROGEN 28 mg/dL H 9-25 GLUCOSE 182 mg/dL H 74-100 SODIUM 140 mmol/L 136-145 POTASSIUM 4.8 mmol/L 3.5-5.1 CHLORIDE 105 mmol/L 98-107 CO2 28 mmol/L 22-29 CALCIUM 9.8 mg/dL 8.4-10.2 ANION GAP 7 meq/L 3-19 eGFR (CKD-EPI) 65 Oct 15, 2023 09:36 AM [facility] POC AVOX GAS MIXED VENOUS Specimen Type : MIXED VENOUS Comment: Specimen Site: Pulmonary artery, Main Test performed by: [id number] Meter #:[id number] Ordering Provider: DOV GUILLERMO Report Released Date/Time: Oct 15, 2023 10:34 AM Reporting Lab: [address] [address] Performing Lab: [address] [address] .O2HB (AVOX) 62.5 60-80 .HGB (AVOX) 12.2 g/dL 12-18 Oct 14, 2023 08:22 AM [facility] CBC/PLT BLOOD Specimen Type: BLOOD No comment entered. Ordering Provider: DOV RAMSEY Report Released Date/Time: Oct 10, 2023 12:55 PM Reporting Lab: [facility] [address] [facility] [address] Performing Lab: [address] [address] WBC 6.2 10*3/uL 5.0-10.0 RBC 5.34 10*6/uL 4.6-6.2 HGB 13.8 g/dL L 14.0-18.0 HCT 44.7 42.0-52.0 MCV 83.7 fL 80.0-94.0 MCH 25.8 pg L 27.0-31.0 MCHC 30.9 g/dL L 32.0-36.0 PLT 204 10*3/uL 150-450 MPV 10.1 fL 9.0-13.1 RDW 17.4 H 11.0-16.0 NRBC 0.0 0.0-0.0 Oct 14, 2023 08:22 AM [facility] MAGNESIUM PLASMA Specimen Type: PLASM [...] Oct 09, 2023 01:38 PM Reporting Lab: [address] [address] Performing Lab: [address] [address] MAGNESIUM 2.1 mg/dL 1.6-2.6 Oct 14, 2023 08:22 AM [facility] B[facility]Station [facility]) PLASMA Specimen Type: PLASMA Comment: BNP results less than or equal to 100 pg/ml are wire rope sales representative of normal values in patients without CHF. BNP results greater than 100 pg/ml are considered abnormal and suggestive of CHF. Higher BNP concentrations in the first 72 hours after Acute Coronary Syndrome are associated with an increased risk of , myocardial infarction and CHF. Ordering Provider: SANDRA MARCOS Report Released Date/Time: Oct 09, 2023 01:38 PM Reporting Lab: [address] [address] Performing Lab: [address] [address] BNP (Station X) 204 pg/mL H 0-100 Oct 14, 2023 08:22 AM [facility] 1 PLASMA Specimen Type: PLASM A [...] Oct 09, 2023 01:38 PM Reporting Lab: [address] [address] Performing Lab: [address] [address] CREATININE 1.27 mg/dL H 0.72-1.25 UREA NITROGEN 35 mg/dL H 9-25 GLUCOSE 126 mg/dL H 74-100 SODIUM 134 mmol/L L 136-145 POTASSIUM 4.7 mmol/L 3.5-5.1 CHLORIDE 103 mmol/L 98-107 CO2 24 mmol/L 22-29 CALCIUM 10.0 mg/dL 8.4-10.2 ANION GAP 7 meq/L 3-19 eGFR (CKD-EPI) 63 Social History: Smoking Status (Most current) and Tobacco Use (All prior to encounter date) This section includes the most current, and the historical, smoking and tobacco- related health factors from the [place] facility where the Encounter took place. Current Smoking Status This section includes the most current smoking, or tobacco-related health factor, from the [place] facility where the Encounter took place. Date/Time Current Smoking Status Comment Christofer villanueva August 15, 2023 08:00 AM VA-TOBACCO NEVER USED [facility] Tobacco Use History This section includes a history of the smoking, or tobacco-related health factors, that were collected on or before the date of the Encounter. The data comes from the [place] facility where the Encounter took place. Date/Time Smoking Status/Tobacco Use Comment F acyari Jun 11, 2022 08:30 AM VA-TOBACCO NEVER USED [facility] May 11, 2021 08:00 AM VA-TOBACCO FORMER USER [facility] May 11, 2021 08:00 AM VA-TOBACCO QUIT 15 YRS OR MORE [facility] Apr 04, 2020 08:30 AM VA-TOBACCO FORMER USER [facility] Apr 04, 2020 08:30 AM VA-TOBACCO QUIT 15 YRS OR MORE [facility] Mar 18, 2019 12:56 PM VA-TOBACCO FORMER USER [facility] Mar 18, 2019 12:56 PM VA-TOBACCO QUIT 5 TO < 15 YRS [facility] Radiology Reports: +/- 30 days of [...] the Encounter. The data comes from all [place] treatment facilities. Date/Time Radiology Report Provider Source Oct 15, 2023 07:30 AM PRINTER ASSISTANT - FLUORO UP TO 1 HOUR: KATE CARTER [id number] -[id number] M Exm Date: OCT 15, 2023@07:30 Req Phys: DOV HURTADO Loc: CARDIAC CATH/OPT/CDD (Req'g Lo Img Loc: ANGIO/NEURO/INTERVENTIONAL Service: [place] [address] (Case [id number] COMPLETE) PRINTER ASSISTANT - FLUORO UP TO 1 HOUR (ANI Detailed) CPT:59456 Reason for Study: RHC Clinical History: RHC Report Status: Verified Date Reported: Date Verified: OCT 15, 2023 Flight Manager E-Sig: Report: See Impression Impression: Consumer Services Consultant imaging capture for storage. Please see CPRS Consumer Services Consultant consults and notes in CPRS for final reporting and exam documentation. Primary Diagnostic Code: Primary Interpreting Staff: PHYS OTHER THAN [place] RADIOL, Staff Physician Verified by director fixed income for PHYS OTHER THAN [place] RADIOL /[facility] RADIOLOGIST,PHYS OTHER THAN [facility] Encounter Notes: All associated encounter notes This section contains the clinical notes associated to the Encounter. Date/Time Encounter Note(s) Provider Source Nov 05, 2023 08:55 AM PODIATRY ATTENDING NOTE: LOCAL TITLE: PODIATRY ATTENDING NOTE STANDARD TITLE: PODIATRY ATTENDING NOTE DATE OF NOTE: NOV 05, 2023@08:55 ENTRY DATE: NOV 05, 2023@08:56:07 AUTHOR: LUIS ROMERO EXP COSIGNER: URGENCY: STATUS: COMPLETED SOAP Note SUBJECTIVE: The patient is a 63 year old MALE. Chief Complaint: Type II day patient is here for foot exam and foot care. His nail infection completely went away. He still has the fibroma in his left arch but it is no longer painful. Past Medical History: Active problems - Computerized Problem [...] fasciitis 9. Basal cell carcinoma of skin ALLERGIES: VANCOMYCIN, GABAPENTIN, PREGABALIN, SIMVASTATIN, ROSUVASTATIN Food allergies: None known VITALS: SVS - Vital Signs Selected Measurement DT BP TEMP RESP PULSE POx F(C) (L/MIN)(%) 10/15/2023 08:39 130/77 59 100 Measurement DT WEIGHT LB(KG)[BMI] 10/15/2023 08:39 FOOT RISK LEVEL: MEDICATION RECONCILIATION: Reviewed current medications with patient/significant other, patient/significant other reports taking ALL VA, Non VA & OTC medications as listed on CPRS medication tab outpatient section. Yes *Medication changes reviewed, patient/significant other verbalized understanding and provided information on new medication. Yes *Explained to the patient the importance of keeping providers updated on medication changes and to carrying an updated list of medication at all times in case of an emergency situation. Yes OBJECTIVE: FOOT RISK LEVEL: 2 ROS: pertinent to chief complaint & relative to above medical history. PE: AAOX3,NAD Lower Extermity Dermatological Exam: NAILS: Long, Thick, Discolored, Brittle, Crumbly, Subungal debris SKIN: Left first nail surgical site is completely healed with no more symptoms. The skin is completely cleared up. VASCULAR EVAL: 1/4 DP/PT bilat, cap refil 3 sec x 10 NEUROLOGICAL EVALUATION: insensate bilat ORTHOPEDICS EVALUATION: hammertoes bilat, pes planus foot type noted bilat, plantar fibroma noted to the plantar arch bilat. minimal tenderness. 1 cm each foot. Lower Extermity Motor Function: 5/5 all lower extremity muscle groups bilat IMPRESSION: DM II neuropathy Onychomycosis x 10 Hammertoe Pes planus ingrown nail Plantar fibroma PLAN: Discussed with patient the diagnosis and treatment plan on this clinic visit. DM preventative footcare education provided. Extensive consultation / education of pt on DM and ramifications of poor compliance / control of DM. Pt advised of risk of infection / ulceration / amputation / etc. Plantar fibroma - continue topical Verapamil 15% cream bilat. and arch supports. I discussed the need for support in his shoe, but he is only wearing a soft multi density insole. I made recommendations on recovery shoes to wear on the house such as Ooofo and telic. This treament also consisted of an extensive consultation of the condition and the possible alternative to this mode of treatment. Another pair of powerstep arch supports was fitted to the feet and dispensed in a size 10.5. Rx for shoes Rx for socks - RTC visit was given for 6 months. /amando/ LUIS ROMERO PODIATRY ATTENDING Signed: 11/05/2023 09:32 LUIS ROMERO [facility]
--- OUTSIDE RECORDS SUMMARY | 2024-07-14 06:50 | XMS_ITS | Clinical Summary ---
Author Organization [facility] Address [address] [place] [address] Phone Care Team Providers Care [place] Hand Name Role Phone Flores FOY, Aaron Tolliver Unavailable [phone] Shruthi Lizarraga Unavailable Unavailable Reason for Referral Date Encounter Description Provider Reason for Referral 06/20/20 NEW PROBLEM/EST PT Sav Torres MD R eferral To Physician - SEE PCP FOR BP AND WT Reason for Visit and Chief Complaint The Chief Complaint is: RLF pain, The Chief Complaint is: RRF pain Problems Includes: Problems addressed during this encounter and other active Problems All Visits Onset Date Resolved Date Provider Condition S tatus Bone Pain Right Fingers 04/21/2018 Sav Torres MD Active Last Documented On 9 9:22AM ; [facility] Pain in Both Feet 01/21/2018 Aaron Tanner DPM Active Last Documented On 8 8:55AM ; [facility] Plan of Treatment I informed the patient that his right ring finger is not severely infected but would like to closely monitor the progression. Patient will follow up in 1 week. - Last Documented On 06/23/2020 2:38PM ; [facility] Instructions to patient Instructions for patient see pcp for bp Last Documented On 1 10:19AM ; [facility] Lose weight Last Documented On 9:20AM ; [facility], [facility] Assessments Includes: Assessments from this encounter Findings Infected puncture wound to right ring finger - Last Documented On 06/23/2020 2:38PM ; [facility] Instructions Includes: Instructions from this encounter Instructions to patient Instructions for patient see pcp for bp Last Documented On 1 10:19AM ; [facility] Lose weight Last Documented On 1 9:20AM ; [facility] Medical Equipment - Implanted Devices Includes: Current Devices No Medical Equipment Recorded Medications Includes: Medications discussed during this encounter and other current Medications Discontinued / Stopped on this date on 01/21/2018 AmLODIPine Besylate 5MG Oral Tablet Provi jaqui: Diagnosis: Last Documented On 1 12:05PM By Karuna Chase ; [facility] Lisinopril 40MG Oral Tablet Provider: Diagnosis: Last Documented On 1 12:05PM By Karuna Chase ; [facility] MetFORMIN HCl 500MG Oral Tablet Provider: Diagnosis: Last Documented On 1 12:05PM By Karuna Chase ; [facility] Hydrocodone-Acetaminophen 5-325MG Oral Tablet Provider: Diagnosis: Last Documented On 1 12:05PM By Karuna Chase ; [facility] GlipiZIDE 5MG Oral Tablet Provider: Diagnosis: Last Documented On 1 12:05PM By Karuna Chase ; [facility], [facility] Meloxicam 7.5MG Oral Tablet Provider: Diagnosis: Last Documented On 1 12:05PM By Karuna Chase ; [facility], [facility] Refresh Optive 0.5-0.9% Ophthalmic Solution Provider: Diagnosis: Last Documented On 1 12:05PM By Karuna Chase ; [facility] Current Medications (continue as prescribed) Cholecalciferol 25 MCG (1000 UT) Oral Tablet Chewable 06/20/2020 Provider: Diagnosis: Last Documented On 1 12:12PM By Karuna Chase ; [facility] Ketotifen Fumarate 0.025% Ophthalmic Solution 06/21/19 Provider: Diagnosis: Last Documented On 1 12:11PM By Karuna Chase ; [facility], [facility] PreserVision AREDS Oral Tablet 06/20/2020 Provider: Diagnosis: Last Documented On 1 12:10PM By Karuna Chase ; [facility] Fluticasone Furoate 50 MCG/A CT Inhalation Aerosol Powder Breath Activated 06/20/2020 Provider: Diagnosis: Last Documented On 1 12:10PM By Karuna Chase ; [facility] Lidocaine 5% External Ointment 06/20/2020 Provider: Diagnosis: Last Documented On 1 12:10PM By Karuna Chase ; [facility] Omeprazole 20 MG Oral Ta blet Delayed Release Disintegrating 06/20/2020 Provider: Diagnosis: Last Documented On 1 12:09PM By Karuna Chase ; [facility], [facility] Lisinopril 40 MG Oral Tablet 06/20/2020 Provider: Diagnosis: Last Documented On 12:09PM By Karuna Chase ; [facility] Accu-Chek Soft Touch Lancets Miscellaneous 06/20/2020 Provider: Diagnosis: Last Documented On 1 12:09PM By Karuna Chase ; [facility] Droplet Pen [place] 32G X 5 MM Miscellaneous Provider: Diagnosis: Last Documented On 1 12:08PM By Karuna Chase ; [facility] Accu-Chek Softclix Lancet Dev Kit 06/20/2020 Provide r: Diagnosis: Last Documented On 1 12:07PM By Karuna Chase ; [facility], [facility] metFORMIN HCl 500 MG Oral Tablet 06/20/2020 Provider : Diagnosis: Last Documented On 1 12:07PM By Karuna Chase ; [facility], [facility] Refresh Contacts Drops Solution 06/20/2020 Provider: Diagnosis: Last Documented On 1 12:11PM By Karuna Chase ; [facility], [facility] Clindamycin HCl 300 MG Oral Capsule 06/18/2020 Provi jaqui: Diagnosis: Last Documented On 1 9:08AM By Karuna Chase ; [facility], [facility] Acetaminophen 325 MG Oral Tablet 05/11/2020 Provider : Diagnosis: Last Documented On 1 9:09AM By Karuna Chase ; [facility], [facility] Ketoconazole 2% External Shampoo 04/24/2020 Provider : Diagnosis: Last Documented On 1 9:09AM By Karuna Chase ; [facility], [facility] Curity Alcohol Preps 70% Pad 04/16/2020 Provider: Diagnosis: Last Documented On 1 9:09AM By Karuna Chase ; [facility], [facility] Alogliptin Benzoate 25 MG Oral Tablet 04/16/2020 Pro vider: Diagnosis: Last Documented On 1 9:09AM By Karuna Chase ; [facility], [facility] Vitamin D3 25 MCG (1000 UT) Oral Tablet 04/06/2020 P rovider: Diagnosis: Last Documented On 9:09AM By Karuna Chase ; [facility], [facility] Lantus SoloStar 100 UNIT/ML Subcutaneous Solutio n Pen-injector 04/06/2020 Provider: Diagnosis: Last Documented On 1 9:09AM By Karuna Chase ; [facility], [facility] Meloxicam 15 MG Oral Tablet 04/04/2020 Provider: Diagnosis: Last Documented On 1 9:09AM By Karuna Chase ; [facility], [facility] glipiZIDE 10 MG Oral Tablet 04/04/2020 Provider: Diagnosis: Last Documented On 1 9:09AM By Karuna Chase ; [facility], [facility] Ezetimibe 10 MG Oral Tablet 04/04/2020 Provider: Diagnosis: Last Documented On 1 9:09AM By Karuna Chase ; [facility], [facility] amLODIPine Besylate 2.5 MG Oral Tablet 04/04/2020 Pr ovider: Diagnosis: Last Documented On 1 9:09AM By Karuna Chase ; [facility], [facility] Past Medications on file Bactrim DS 800-160MG Oral Tablet 06/23/2018 - 07/04/19 19 Provider: Aaron Tanner DPShun Diagnosis: twice a day Last Documented On 9 12:06PM By Radha Hunter ; [facility], [facility] Keflex 500 MG OR CAPS 06/10/2018 - 06/13/2018 Provider : Sav Torres MD Diagnosis: Last Documented On 9 12:22PM By Jenna Boateng ; [facility], [facility] Boone 7.5-325 MG OR TABS 06/09/2018 - 06/14/2018 Provi jaqui: Sav Torres MD Diagnosis: Last Documented On 9 1:46PM By Rehana Morales ; [facility], [facility] Boone 7.5-325MG Oral Tablet 04/08/2018 - 04/15/2018 Pr ovider: Aaron Tanner DPM Diagnosis: 1-2 po q 4-6h prn pain (surgery 04/03/18) Last Documented On 9 10:16AM By Radha Hunter ; [facility], [facility] Boone 7.5-325MG Oral Tablet 04/02/2018 - 04/09/2018 Pr ovider: Aaron Tanner DPM Diagnosis: 1-2 po q 4-6h prn pain (surgery 04/03/18) Last Documented On 9 9:50AM By Loly Muhammad ; [facility], [facility] Medications Administered Includes: Administered Medications from this encounter No Administered Medications Recorded Vital Signs Includes: Vital Signs from this encounter Vital Name 06/20/2020 10:19A Blood Pressure Sitting (mmHg) 108/96 Pulse Rate-Sitting (bpm) 85 Height (in) 72 Weight (lb) 215 Body Mass Index (kg/m2) 29.2 Body Surface Area (m2) 2.2 Note: SNM Last Documented: On 06/20/2020 10:20A M ; [facility], [facility] Results Includes: Results discussed during this encounter No Results Recorded For Specified Dates History of Present Illness Includes: History of Present Illness from this encounter PEDRO No is a 60 year old male. - Symptoms worse with pressure. - Allergy list reviewed - Problem list reviewed - Medication reconciliation performed - Medication list reviewed with patient - Previous history of new onset pain 06/14/2020 knife cut finger - Pain is constant (100% of the time) - Pain is throbbing - Patient pain level from 1-10: 2 - Yes, previous treatment. [facility] Medications used for this condition: Clindamycin Social History Description Last Updated Alcohol use 06/20/2020 Last Documented On 1 2:38PM ; [facility] Alcohol use 06/20/2020 Last Documented On 1 10:19AM ; [facility] Caffeine use 06/20/2020 Last Documented On 1 2:38PM ; [facility] Not a current smoker. 06/20/2020 Last Documented On 1 2:38PM ; [facility] Not exercising regularly 06/20/2020 Last Documented On 1 2:38PM ; [facility] Non-smoker 06/20/2020 Last Documented On 1 2:38PM ; [facility] No tobacco use 01/21/2018 Last Documented On 1 10:19AM ; [facility] Smoking status : Former smoker 8 Last Documented On 1 10:19AM ; [facility] No recent change in diet 01/21/2018 Last Documented On 1 10:19AM ; [facility] Not a current smoker 01/21/2018 Last Documented On 1 10:19AM ; [facility] Not using drugs 01/21/2018 Last Documented On 1 10:19AM ; [facility] Procedures and Surgical History Includes: Procedures from this encounter Procedures Code Diagnosis Performing Provider Service L ocation Service Date use of tobacco assessment performed 1000F Last Documented On 1 9:20AM ; [facility] referral to physician SEE PCP FOR BP AND WT Last Documented On 1 9:20AM ; [facility] Clinical summary provided to patient Last Documented On 1 10:19AM ; [facility] Medical History Includes: Medical History addressed during this encounter Description Last Updated Arthritis 06/20/2020 Last Documented On 1 2:38PM ; [facility] Back surgery neck x2 06/20/2020 Last Documented On 1 2:38PM ; [facility] Heartburn / Acid Reflux 06/20/2020 Last Documented On 1 2:38PM ; [facility], [facility] Hernia repair 06/20/2020 Last Documented On 1 2:38PM ; [facility], [facility] Hypertension 06/20/2020 Last Documented On 1 2:38PM ; [facility], [facility] Past medical/surgical history [use for f ree text] 06/20/2020 Last Documented On 1 2:38PM ; [facility], [facility] Past Surgical History: Sinus surgery, fi nger surgery, toe surgery 06/20/2020 Last Documented On 1 2:38PM ; [facility], [facility] No recent immunization for flu 1 Last Documented On 1 2:38PM ; [facility], [facility] No recent immunization for pneumococcal pneumonia 06/20/2020 Last Documented On 1 2:38PM ; [facility], [facility] Arthritic joint problems 01/21/2018 Last Documented On 1 10:19AM ; [facility], [facility] History of diabetes mellitus 01/21/2018 Last Documented On 1 10:19AM ; [facility], [facility] Intermittent hypertension 01/21/2018 Last Documented On 1 10:19AM ; [facility], [facility] Family History Includes: Family History addressed during this encounter Description Last Updated Diabetes mellitus 06/20/2020 Last Documented On 1 2:38PM ; [facility], [facility] Stroke / Seizures 06/20/2020 Last Documented On 1 2:38PM ; [facility], [facility] Fraternal history of diabetes mellitus 0 06/23/2018 Last Documented On 1 10:19AM ; [facility], [facility] Maternal history of diabetes mellitus Last Documented On 1 10:19AM ; [facility], [facility] Family history of diabetes mellitus 12/31 Last Documented On 1 10:19AM ; [facility], [facility] Review of Systems Includes: Review of [...] Documented On 1 10:04AM ; [facility], [facility] Encounters Encounter Provider Location Date Check-In Time Check-Out Time Diagnosis NEW PROBLEM/EST PT Sav Torres MD [facility] 06/21/19 21 9:11AM 10:34AM Insurance Includes: Active Insurance Policies Plan Name Member ID Group # Subscriber Relationship Effect porfirio Dates - [facility] [id number] Cristino No Self Clinical Notes Includes: Clinical Notes from this encounter No Clinical Notes Recorded
--- OUTSIDE RECORDS SUMMARY | 2024-07-14 06:50 | XMS_ITS | Encounter Summary ---
Author Name [facility] Organization [facility] Address [address] [place] [id number] Care Team Providers Care Health Associate Name Role Phone JOSUE JOOENEDINA Primary Care [...] PART A May 30, 2024 PART A [id number] WIGGLESWO RTH,STEWA RT PATIENT MEDICARE (WNR) MEDICARE (M) PART B May 30, 2024 PART B [id number] WIGGLESWO RTH,STEWA RT PATIENT [facility] 2017 SELE[facility] T RETIR ED May 16, 2018 [facility] [id number] [phone] WIGGLESWO RTH,STEWA RT PATIENT [facility] 2018 [employer] A Apr 01, 2017 DODA [id number] WIGGLESWO RTH,STEWA RT PATIENT [facility] 2024 [facility] RETIR ED Apr 01, 2024 [employer] [id number] [phone] JAZMINE RTHAMY RT PATIENT Selected Encounter This section includes the information on record at OR for the Encounter. Date/Time Encounter Type Encounter Description Reason Provider Source Jul 01, 2024 09:41 AM PH1 ASSMT&MGMT NQHP 5-10 TELEPHONE PRIMARY CARE ICD-10-CM Z71.9 Counseling, unspecified Nathan CORDOVA IHE Encounter Template Text not used by OR Assessments - Encounter Diagnoses This section includes the primary and secondary diagnoses documented for the Encounter. Date/Time Primary/Secondary Diagnosis Diagnosis Name Provider Source Jul 01, 2024 09:41 AM PRIMARY Counseling, unspecified Nathan CORDOVA [facility] Plan of Treatment: Future Appointments (+ 6 months) and Future Tests (+/- 45 days) The Plan of Treatment section includes future care activities for the patient from all [facility]. This section includes future appointments and future orders which are active, pending or scheduled. Future Appointments This section includes appointments that were scheduled to occur 6 months from the date of the Encounter, up to a maximum of 20 appointments. The data comes from all [facility]. Appointment Date/Time Appointment Type Appointme nt Facility Name Jul 15, 2024 09:00 AM [facility] Jul 27, 2024 08:00 AM [facility] Jul 29, 2024 01:00 PM [facility]UL[facility] - MEDICINE [facility] August 03, 2024 07:00 [facility] Sep 23, 2024 10:00 AM AMBULATORY - MEDICINE [facility] Nov 03, 2024 09:40 AM [facility] Active, [...] of theEncounter. The data comes from all [facility]. Test Date/Time Test Type Test Details Facility Name Jun 26, 2024 09:07 AM Consult Order PAIN CLINI C ANESTHESIOLOGY/PAIN CD OUTPATIENT Cons Promotions Representative's Choice [facility] Jul 15, 2024 12:00 AM Imaging - Ultrasou nd Order FNA BX W/ ULTRASND GDN,1ST LESION [facility] Social History: Smoking Status (Most current) and Tobacco Use (All prior to encounter date) This section includes the most current, and the historical, smoking and tobacco- related health factors from the OR facility where the Encounter took place. Current Smoking Status This section includes the most current smoking, or tobacco-related health factor, from the OR facility where the Encounter took place. Date/Time Current Smoking Status Comment Facil ity Mar 16, 2024 10:30 AM VA-TOBACCO NEVER U SED OTHER TYPE [facility] Tobacco Use History This section includes a history of the smoking, or tobacco-related health factors, that were collected on or before the date of the Encounter. The data comes from the OR facility where the Encounter took place. Date/Time Smoking Status/Tobacco Use Comment F acility Mar 16, 2024 10:30 AM VA-TOBACCO NEVER U SED OTHER TYPE [facility] August 15, 2023 08:00 AM VA-TOBACCO NEVER USED [facility] Jun 11, 2022 08:30 AM VA-TOBACCO NEVER USED [facility] May 11, 2021 08:00 AM VA-TOBACCO FORMER USER [facility] May 11, 2021 08:00 AM VA-TOBACCO QUIT 15 YRS OR MORE [facility] Apr 04, 2020 08:30 AM VA-TOBACCO FORMER USER [facility] Apr 04, 2020 08:30 AM VA-TOBACCO QUIT 15 YRS OR MORE [facility] Mar 18, 2019 12:56 PM VA-TOBACCO FORMER USER [facility] Mar 18, 2019 12:56 PM VA-TOBACCO QUIT 5 TO < 15 YRS [facility] Radiology Reports: +/- 30 days [...] the Encounter. The data comes from all OR treatment facilities. Date/Time Radiology Report Provider Source Jun 29, 2024 12:58 PM U/S THYROID: KATE CARTER [id number] -[id number] M Exm Date: JUN 29, 2024@12:58 Req Phys: MARTHA HENLEY Pat Loc: X-RAY/MRI/DOROTHEA/[place] (Req'g Loc Img Loc: ULTRASOUND Service: [place] [address] (Case [id number] COMPLETE) U/S THYROID (US Detailed) CPT:27602 Reason for Study: SEE CLINICAL HISTORY Clinical History: REASON FOR EXAM:Nodule/Lesion follow up PERTINENT PATIENT HISTORY: PROVIDER ExtPager# Report Status: Verified Date Reported: JUN 30, 2024 Date Verified: JUN 30, 2024 Senior Data Mining Analyst E-Sig: Report: EXAMINATION: THYROID ULTRASOUND CLINICAL INDICATIONS: [...] Interpreting Staff: CHIN CASTILLO, Radiologist Verified by road roller operator hot mix for CHIN CASTILLO /CHIN LEES-D [facility] Jun 17, 2024 08:36 AM MRI C SPINE W/O CO NTRAST: KATE CARTER [id number] -1960 M Exm Date: JUN 17, 2024@08:36 Req Phys: MARTHA HENLEY [facility] (Req'g Lo Img Loc: [facility] Service: [place] [address] (Case [id number] COMPLETE) MRI C SPINE W/O CONTRAST (MRI Detailed) CPT:42628 Reason for Study: SEE CLINICAL HISTORY Clinical History: STATUS OF PLAIN FILMS:Done, exam date/impression above. MRI Screening (Required): IMPLANTED DEVICE DOCUMENTATION 03/11/2024 09:29 Local Title: IMPLANTED CARDIAC DEVICE Standard Title: CLINICAL WARNING Patient has an Implanted Cardiac Device. Cardiac Device Type: BIV ICD Liner Inserter: [facility] [employer] Device details: Generator - [employer], model [id number], SN [id number]. RA lead - [employer], model [id number], SN [id number]. RV lead - [employer], model [id number], SN [id number]. LV - [employer], model [id number], SN [id number]. Parameters: RA - threshold - 0.25v@0.5ms, 460 ohms, sensing - >5mV RV - threshold - 0.25v@0.5ms, 640 ohms, sensing - >12mV LV - threshold - 1.25v@0.5ms, 700 ohms. DFT's - were not assessed. Shock coil impedance - 73 ohms. Implant 03/10/2024 Dr. Mckniney Signed by: /es/ RUTHANN BARONE RN 03/11/2024 09:32 Does the [place] have any Cardiac Implants? ICD Does the have any implanted stimulators? None Does the have cochlear implants? No Does the [place] have Cerebral aneurysm clip(s)? No Does the have any shrapnel? No If yes, where in your body? Please list other implants not listed above: MRI table has a weight limit of 551 lbs. [place]'s Weight: *198 lb [89.81 kg] (03/16/2024 10:02) Is this patient claustrophobic?: No REASON FOR EXAM: OTHER (provide detailed justification for your request) PERTINENT PATIENT HISTORY: Cervical radiculopathy Risk factors for GADOLINIUM NEPHROGENIC SYSTEMIC SCLEROSIS: Report Status: Verified Date Reported: JUN 17, 2024 Date Verified: JUN 17, 2024 Senior Data Mining Analyst E-Sig: Report: KATE CARTER 1960 EXAM: MRI [...] Staff: FATUMA GARCIA, Staff Physician Verified by road roller operator hot mix for FATUMA GARCIA /OCTAVIA GARCIA,FATUMA [facility] Encounter Notes: All associated encounter notes This section contains the clinical notes associated to the Encounter. Date/Time Encounter Note(s) Provider Source Jul 01, 2024 09:41 AM PRIMARY CARE E & M NOTE: LOCAL TITLE: PC CARE MANAGEMENT STANDARD TITLE: PRIMARY CARE E & M NOTE DATE OF NOTE: JUL 01, 2024@09:41 ENTRY DATE: JUL 01, 2024@09:41:26 AUTHOR: TORI CORDOVA EXP COSIGNER: URGENCY: STATUS: COMPLETED Contacted Mr. KATE CARTER regarding PCP recommendations: June 17 2024 PC care man note Please tell pt that thyroid u/s showed a nodule that needs to be biopsied (ordered). Also, repeat u/s is rec in 1 year and was ordered for 06/29/25. Impression: Dominant nodule in the left thyroid lobe for which fine-needle aspiration is recommended. 1 year follow-up thyroid ultrasound of right thyroid nodule is recommended [place] states understanding. No further questions or concerns at this time. Agreeable to plan of care. identified using two identifiers (name, last four). Spent 5 minutes on the call. /amando/ TORI CORDOVA Registered Nurse Signed: 07/01/2024 09:45 TORI CORDOVA [facility]
--- OUTSIDE RECORDS SUMMARY | 2024-07-14 06:50 | XMS_ITS | Encounter Summary ---
Author Name [facility] [place] [facility] [place] Address [address] [place] [id number] Care Team Providers Care Bench Mechanic Name Role Phone GODFREY SALAS Primary Care [...] PART A May 30, 2024 PART A [id number] WIGGLESWO RTH,STEWA RT PATIENT MEDICARE (WNR) MEDICARE (M) PART B May 30, 2024 PART B [id number] WIGGLESWO RTH,STEWA RT PATIENT FORMERLY [facility] 2017 SELEC T RETIR ED May 16, 2018 SELECT RETIRED [id number] [phone] WIGGLESWO RTH,STEWA RT PATIENT FORMERLY [facility] 2018 [employer] A Apr 01, 2017 DODA [id number] WIGGLESWO RTH,STEWA RT PATIENT [facility]MERLY [facility] 2024 PRIME RETIR ED Apr 01, 2024 PRIME RETIRED [id number] [phone] WIGGLESWO RTH,AMY RT PATIENT Selected Encounter This section includes the information on record at [place] for the Encounter. Date/Time Encounter Type Encounter Description Reason Provider Source Apr 08, 2024 08:15 AM TTE W/DOPPLER COMPLETE CARDIAC ECHO ICD-10-CM I25.5 Ischemic cardiomyopathy LINNEA GEORGE IHCatracho Encounter Template Text not used by [place] Assessments - Encounter Diagnoses This section includes the primary and secondary diagnoses documented for the Encounter. Date/Time Primary/Secondary Diagnosis Diagnosis Name Provider Source May 01, 2024 03:55 PM PRIMARY Ischemic cardiomyopathy LINNEA GEORGE- [place] [facility] Plan of Treatment: Future Appointments (+ 6 months) and Future Tests (+/- 45 days) The Plan of Treatment section includes future care activities for the patient from all [place] treatmentfacilities. This section includes future appointments and future orders which are active, pending or scheduled. Future Appointments This section includes appointments that were scheduled to occur 6 months from the date of the Encounter, up to a maximum of 20 appointments. The data comes from all [place] treatment facilities. Appointment Date/Time Appointment Type Appointme nt Facility Name Apr 16, 2024 01:30 PM AM[place]ATORY - NONE [place] [facility] Apr 16, 2024 02:15 PM AMBULATORY - NONE [place] [facility] May 05, 2024 09:40 AM AMBULATORY - SURGERY [place] [facility] Jun 03, 2024 10:00 AM AMBULATORY - NONE [place] [facility] Jun 05, 2024 09:30 AM AMBULATORY - NONE [place] [facility] Jun 17, 2024 08:00 AM [facility] [facility] Jun 17, 2024 09:00 AM AM[place]ORY - NONE [place] Jun 25, 2024 08:00 AM AMBULATORY - MEDICINE [place] [facility] Jun 26, 2024 08:20 AM AMBULATORY - SURGERY [place] [facility] Jun 29, 2024 01:30 PM AMBULATORY - NONE [place] [facility] Jul 15, 2024 09:00 AM AMBULATORY - NONE [place] Jul 27, 2024 08:00 AM AMBULATORY - SURGERY [place] Jul 29, 2024 01:00 PM AMBULATORY - MEDICINE [place] [facility] August 03, 2024 07:00 AM AMBULATORY - NONE [place] N[facility]n [facility] Sep 23, 2024 10:00 AM AMBULATORY - MEDICINE [place] [facility] Lab Results: +/- 30 days of the encounter This section includes the Chemistry and Hematology Lab Results on record with [place] for the patient. Radiology Reports and Pathology Reports are provided separately, in subsequent sections. Lab Results This section contains the Chemistry/Hematology Results that were resulted 30 days before or 30 daysafter the date of the Encounter. Date/Time Source Result Type Result - Unit Interpretation Reference Range Specimen Type Comment May 05, 2024 09:06 AM [facility] N MICROALBUMIN/CREAT RATIO URINE Specimen Type: URINE No comment entered. Ordering Provider: MARTHA HENLEY Report Released Date/Time: Mar 23, 2024 10:36 AM Reporting Lab: [address] [address] Performing Lab: [address] [address] CREATININE 54.5 mg/dL MICROALBUMIN QUANT 64.7 mg/L H 0.0-30.0 .MICROALBUMIN/CREA RATIO 118.7 ug/mg{creat} May 05, 2024 08:58 AM [facility] GLYCOHEMOGLOBIN BLOOD Specimen Type: BLOOD Comment: [place] guidelines for A1c interpretation: Glycemic control targets are based on Shared Decision Making between clinicians and patients. Criteria used to establish an A1c target recommendation can be found at https://www.de.gov/qualityandpatientsafety/ and include the use of result accuracy [...] 8.73 and 9.27. Ref: https://ngsp.org/CAPdata.asp. The in-house [employer] CO D-100 analyzer has a historical CV <= 2%. Contact the laboratory for further performance characteristics of this assay. Ordering Provider: MARTHA HENLEY Report Released Date/Time: Mar 23, 2024 10:36 AM Reporting Lab: [facility] [address] [facility] [address] Performing Lab: [address] [address] GLYCOHEMOGLOBIN 8.0 H 4.4-5.6 May 05, 2024 08:58 AM [facility] PANEL 1 PLASMA Specimen Type: PLASM A [...] Mar 23, 2024 10:36 AM Reporting Lab: [address] [address] Performing Lab: [address] [address] CREATININE 1.34 mg/dL H 0.72-1.25 UREA NITROGEN 29 mg/dL H 9-25 GLUCOSE 186 mg/dL H 74-100 SODIUM 137 mmol/L 136-145 POTASSIUM 4.3 mmol/L 3.5-5.1 CHLORIDE 105 mmol/L 98-107 CO2 23 mmol/L 22-29 CALCIUM 9.4 mg/dL 8.4-10.2 ANION GAP 9 meq/L 3-19 eGFR (CKD-EPI) 59 Mar 23, 2024 09:13 AM [facility] HBSAG S JOSE Specimen Type: SERUM [...] Mar 16, 2024 11:01 AM Reporting Lab: [address] [address] Performing Lab: [address] [address] HBSAG Nonreactive Nonreactive Mar 23, 2024 09:13 AM [facility] HBSAB S JOSE Specimen Type: SERUM [...] Mar 16, 2024 11:01 AM Reporting Lab: [address] [address] Performing Lab: [address] [address] HBSAB Nonreactive Nonreactive Mar 23, 2024 09:13 AM [facility] GLYCOHEMOGLOBIN BLOOD Specimen Type: BLOOD Comment: [place] guidelines for A1c interpretation: Glycemic control targets are based on Shared Decision Making between clinicians and patients. Criteria used to establish an A1c target recommendation can be found at https://www.de.gov/qualityandpatientsafety/ and include the use of result accuracy [...] 8.73 and 9.27. Ref: https://ngsp.org/CAPdata.asp. The in-house [employer] CO D-100 analyzer has a historical CV <= 2%. Contact the laboratory for further performance characteristics of this assay. Ordering Provider: MARTHA HENLEY Report Released Date/Time: Mar 16, 2024 11:01 AM Reporting Lab: [address] [address] Performing Lab: [address] [address] GLYCOHEMOGLOBIN 8.2 H 4.4-6.4 Mar 23, 2024 09:13 AM [facility] LIPID PROFILE PLASMA Specimen Type: PLASMA Comment: [...] Mar 16, 2024 11:01 AM Reporting Lab: [address] [address] Performing Lab: [address] [address] CHOLESTEROL 161 mg/dL 0-199 TRIGLYCERIDE 156 mg/dL H 0-149 HDL CHOLESTEROL 58 mg/dL 40-69 DIRECT LDL CHOL. 100 mg/dL 0-100 Mar 23, 2024 09:13 AM [facility] PSA S JOSE Specimen Type: SERUM No comment entered. Ordering Provider: MARTHA HENLEY Report Released Date/Time: Mar 16, 2024 11:01 AM Reporting Lab: [address] [address] Performing Lab: [address] [address] PSA 1.538 ng/mL 0-3.999 Mar 23, 2024 09:13 AM [facility] PANEL 5 PLASMA Specimen Type: PLASMA [...] Mar 16, 2024 11:01 AM Reporting Lab: [address] [address] Performing Lab: [address] [address] CREATININE 1.34 mg/dL H 0.72-1.25 UREA NITROGEN [...] (CKD-EPI) 59 Mar 23, 2024 09:13 AM [facility] PLASMA Specimen Type: PLASM A Comment: [...] Mar 16, 2024 11:01 AM Reporting Lab: [address] [address] Performing Lab: [address] [address] TSH 1.8877 m[IU]/mL 0.3500-4.9400 Mar 23, 2024 09:13 AM [facility] CBC/PLT BLOOD Specimen Type: BLOOD No comment entered. Ordering Provider: MARTHA HENLEY Report Released Date/Time: Mar 16, 2024 11:01 AM Reporting Lab: [address] [address] Performing Lab: [address] [address] WBC 6.5 10*3/uL 5.0-10.0 RBC 5.22 10*6/uL 4.6-6.2 HGB 14.3 g/dL 14.0-18.0 HCT 45.6 42.0-52.0 MCV 87.4 fL 80.0-94.0 MCH 27.4 pg 27.0-31.0 MCHC 31.4 g/dL L 32.0-36.0 PLT 180 10*3/uL 150-450 MPV 9.5 fL 9.0-13.1 RDW 15.6 11.0-16.0 NRBC 0.0 0.0-0.0 Mar 23, 2024 09:13 AM [facility] B12 VITAMIN PLASMA Specimen Type: PLASM [...] Mar 16, 2024 11:01 AM Reporting Lab: [address] [address] Performing Lab: [place] [phone] B12 VITAMIN 518 pg/mL 213-816 Mar 23, 2024 09:13 AM [facility] 25-OH VITAMIN D SERUM Specime n [...] Mar 16, 2024 11:01 AM Reporting Lab: [address] [address] Performing Lab: [place] [phone] 25-OH VITAMIN D 51.2 ng/mL H 20.0-50.0 Mar 11, 2024 06:10 AM [facility] GLUCOSE-HAND MONITOR CAPILLARY Specime n Type: CAPILLARY Comment: Test performed by: [id number] Meter #: [id number] Ordering Provider: FELIBERTO MERINO Report Released Date/Time: Mar 11, 2024 06:27 AM Reporting Lab: [address] [address] Performing Lab: [address] [address] GLUCOSE-HAND MONITOR 170 mg/dL H 71-99 Mar 10, 2024 08:59 PM [facility] GLUCOSE-HAND MONITOR CAPILLARY Specime n Type: CAPILLARY Comment: Test performed by: [id number] Meter #: [id number] Ordering Provider: FELIBERTO MERINO Report Released Date/Time: Mar 10, 2024 09:52 PM Reporting Lab: [address] [address] Performing Lab: [place] [phone] GLUCOSE-HAND MONITOR 260 mg/dL H Mar 10, 2024 05:47 PM [facility] GLUCOSE-HAND MONITOR CAPILLARY Specime n Type: CAPILLARY Comment: Test performed by: [id number] Meter #: [id number] Ordering Provider: FELIBERTO MERINO Report Released Date/Time: Mar 10, 2024 11:25 PM Reporting Lab: [address] [address] Performing Lab: [address] [address] GLUCOSE-HAND MONITOR 299 mg/dL H Mar 10, 2024 10:36 AM [facility] MRSA SURVL NARES DNA NARES Specime [...] Mar 05, 2024 10:58 AM Reporting Lab: [address] [address] Performing Lab: [address] [address] MRSA SURVL NARES DNA Negative Negative Mar 10, 2024 08:52 AM [facility] PANEL 1 PLASMA Specimen Type: PLASM [...] Mar 05, 2024 10:58 AM Reporting Lab: [address] [address] Performing Lab: [address] [address] CREATININE 1.36 mg/dL H 0.72-1.25 UREA NITROGEN 28 mg/dL H 9-25 GLUCOSE 137 mg/dL H 74-100 SODIUM 136 mmol/L 136-145 POTASSIUM 4.5 mmol/L 3.5-5.1 CHLORIDE 104 mmol/L 98-107 CO2 28 mmol/L 22-29 CALCIUM 10.0 mg/dL 8.4-10.2 ANION GAP 4 meq/L 3-19 eGFR (CKD-EPI) 58 Mar 10, 2024 08:51 AM [facility] CBC/PLT BLOOD Specimen Type: BLOOD No comment entered. Ordering Provider: FELIBERTO MERINO Report Released Date/Time: Mar 05, 2024 10:58 AM Reporting Lab: [address] [address] Performing Lab: [address] [address] WBC 5.6 10*3/uL 5.0-10.0 RBC 4.87 10*6/uL [...] the Encounter. The data comes from all [place] treatment facilities. Date/Time Radiology Report Provider Source Mar 11, 2024 04:50 AM CHEST SINGLE(1) EW: KATE CARTER [id number] -1960 M Exm Date: MAR 11, 2024@04:50 Req Phys: DOV TELLES Loc: 5-OBM/TEL/03-11-2024@08:53 Img Loc: CDD RADIOLOGY Service: [facility] [place] [id number] (Case [id number] COMPLETE)CHEST SINGLE(1) VIEW (RAD Detailed) CPT:86455 Proc Modifiers : PORTABLE EXAM Reason for Study: POST EPS PROCEDURE Clinical History: Rule out PTX s/p BiV ICD Report Status: Verified Date Reported: MAR 11, 2024 Date Verified: MAR 11, 2024 Rope Walker E-Sig: Report: EXAMINATION: SINGLE VIEW CHEST CLINICAL [...] Interpreting Staff: CHIN CASTILLO, Radiologist Verified by set rider for CHIN CASTILLO /[facility] Mar 10, 2024 07:46 AM TECHNICAL INTERN - FLUORO UP TO 1 HOUR: DEBORAHHERMILOKATE CASTANEDA [id number] -1960 M Exm Date: MAR 10, 2024@07:46 Req Phys: FELIBERTO MERINO Loc: CARDIAC CATH/OPT/CDD (Req'g Lo Img Loc: ANGIO/NEURO/INTERVENTIONAL Service: [place] [address] (Case [id number] COMPLETE) TECHNICAL INTERN - FLUORO UP TO 1 HOUR (ANI Detailed) CPT:31634 Reason for Study: BI-V-ICD Clinical History: BI-V-ICD Report Status: Verified Date Reported: Date Verified: MAR 10, 2024 Rope Walker E-Sig: Report: See Impression Impression: Customs Import Specialist imaging capture for storage. Please see [facility] Customs Import Specialist consults and notes in CPRS for final reporting and exam documentation. Primary Diagnostic Code: Primary Interpreting Staff: PHYS OTHER THAN [place] RAD[facility]OL, Staff Physician Verified by set rider for PH[place] OTHER THAN [place] [facility] /[facility] RADIOLOGIST,PHYS OTHER THAN [facility] Encounter Notes: All associated encounter notes This section contains the clinical notes associated to the Encounter. Date/Time Encounter Note(s) Provider Source Apr 10, 2024 03:04 PM CARDIOLOGY NOTE: LOCAL TITLE: CARDIOLOGY CHART CHECK NOTE STANDARD TITLE: CARDIOLOGY NOTE DATE OF NOTE: APR 10, 2024@15:04 ENTRY DATE: APR 10, 2024@15:04:14 AUTHOR: LINNEA GEORGE EXP COSIGNER: URGENCY: STATUS: COMPLETED Echo performed 04/08/2024 /amando/ LINNEA GEORGE Echocardiologist Signed: 04/10/2024 15:05 [facility] 10, [facility] 02:00 PM TEAM LETTERS: LOCAL TITLE: CARDIOLOGY PATIENT LETTER STANDARD TITLE: TEAM LETTERS DATE OF NOTE: APR 10, 2024@14:00 ENTRY DATE: APR 10, 2024@14:02:43 AUTHOR: BASSAM NAVA EXP COSIGNER: URGENCY: STATUS: COMPLETED [address] [address] APR 10, [address] [address] Mr. KATE CARTER [address] [place] [address] Dear Mr. KATE CARTER, The results of your recent Echocardiogram have been reviewed . The left ventricular ejection fraction has improved slightly since your last echocardiogram and is now 30 - 35% since the time of your Implanatable Cardiac Defibrillator (ICD) on 03/10/2024. As long as you continue to do well, and do not experience any shocks from your ICD you may return to [facility] after 04/11/2024 as well as undergo Deep Tissue Massage therapy at [facility] and Accupuncture therapy as before receiving your implanatble cardiac device. Caution should be taken to avoid hyperextension of the left arm or vigorous massage of the left upper chest where the device pocket continues to heal. [facility] [place] [facility] Sincerely, /amando/ BASSAM NAVA APRN, Cardiology Patient Record Number [id number] [facility] Toll Free: BASSAM NAVA [facility] Apr 08, 2024 12:36 PM PROCEDURE REPORT: LOCAL TITLE: CP CARD/ECHO STANDARD TITLE: PROCEDURE REPORT DATE OF NOTE: APR 08, 2024@12:36:04 ENTRY DATE: APR 08, 2024@12:36:04 AUTHOR: CLINICAL,DEVICE PRO EXP COSIGNER: URGENCY: STATUS: COMPLETED PROCEDURE SUMMARY CODE: Machine Resulted DATE/TIME PERFORMED: APR 08, 2024@12:35:4 DOCUMENT IN VISTA IMAGING SEE FULL REPORT IN VISTA IMAGING SIGNATURE NOT REQUIRED SEE SIGNATURE IN VISTA IMAGING (XCELERA TTE) AUTO-INSTRUMENT DIAGNOSIS Procedure: Adult Adult Release Status: Released Off-Line Verified Date Verified: Apr 08, 2024@12:35:46 CP Order Number: [id number] [address] [place].[address] [phone] Adult Echocardiogram Report Name: KATE CARTER Study Date: 04/08/2024 08:25 AM : 1960 Gender: Male Age: 63 yrs Ordering Physician: Jesse Nguyen MD, PhD Referring Physician: JESSE NGUYEN Reason For Study: Ischemic PATTERN DEVELOPER Performed By: Linnea George Height: 72 in Weight: 195 lb BSA: [...] was performed. The study was technically good. MMode/2D Measurements \T\ Calculations IVSd: 1.0 cm LVIDd: 5.4 cm LV mass(C)d: 206.7 grams LVIDs: 4.6 cm LVPWd: 1.0 cm LA dimension: 4.2 cm asc Aorta Diam: 3.3 cm LVOT diam: 2.1 cm LVOT area: 3.5 cm2 EDV(MOD-sp4): 317.9 ml EDV(MOD-sp2): 256.8 ml ESV(MOD-sp4): 228.5 ml ESV(MOD-sp2): 202.5 ml EDV(MOD-bp): 289.2 ml EF(MOD-sp4): 28.1 % EF(MOD-sp2): 21.2 % ESV(MOD-bp): 217.4 ml EF(sp4-el): 29.0 % EF(sp2-el): 23.0 % EF(MOD-bp): 24.8 % SV(MOD-sp4): 89.5 ml SV(sp4-el): 96.0 ml LAV(MOD-sp2): 86.3 ml LAV(MOD-sp4): 64.4 ml TAPSE_phl: 2.2 cm RV Length_phl: 7.2 cm Ao root diam(2D): 3.3 cm RV Mid_phl: 4.3 cm LA ESV Index(BP): 36.3 ml/m2 IMAN: 35.8 ml/m2 Time Measurements MV dec time: 0.29 sec PA acc time: 0.09 sec Doppler Measurements \T\ Calculations MV E max henry: 50.3 cm/sec LV V1 max P.2 mmHg SV(LVOT): 57.8 ml MV A max henry: 82.3 cm/sec LV V1 mean P.0 mmHg MV E/A: 0.61 LV V1 max: 89.4 cm/sec LV V1 mean: 60.4 cm/sec LV V1 VTI: 16.7 cm PA acc slope: AV VTI-pr_phl: 23.8 cm RV S Vel_phl: 635.9 cm/sec2 10.8 cm/sec Lat Peak E' Henry: Med Peak E' Henry: MV E/e' (Avg): 7.3 6.9 cm/sec 6.9 cm/sec MV Lat E/e': 7.3 MV Med E/e': 7.3 Reading Physician: Eduar Emery MD 04/08/2024 12:35 PM Ordering Physician: Jesse Nguyen MD, PhD Referring Physician: JESSE NGUYEN Performed By: Linnea George Administrative Closure: 04/08/2024 by: DEVICE PROXY SERVICE CLINICAL CLINICAL,DEVICE PROXY SERVICE CLINICAL,DEVICE PROXY SERVICE [facility]
--- OUTSIDE RECORDS SUMMARY | 2024-07-14 06:50 | XMS_ITS ---
Author Name [facility] Organization [facility] Address [address] [place] [id number] Care Team Providers Care Performance Management Consultant Name Role Phone JOSUE JOOENEDINA Primary Care [...] PART A May 30, 2024 PART A [id number] WIGGLESWO RTH,STEWA RT PATIENT MEDICARE (WNR) MEDICARE (M) PART B May 30, 2024 PART B [id number] WIGGLESWO RTH,STEWA RT PATIENT [facility] 2017 SELEC T RETIR ED May 16, 2018 [facility] [id number] [phone] WIGGLESWO RTH,STEWA RT PATIENT [facility] 2017 [employer] A Apr 01, 2017 DODA [id number] WIGGLESWO RTH,STEWA RT PATIENT [facility] 2024 PRIME RETIR ED Apr 01, 2024 [facility] [id number] [phone] WIGGLESWO RTHAMY RT PATIENT Selected Encounter This section includes the information on record at [place] for the Encounter. Date/Time Encounter Type Encounter Description Reason Pro vider Source May 20, 2024 01:35 PM Outpatient Encounter ADMIN PAT ACTIVTIES (MASNONCT) [facility] Encounter Template Text not used by [place] Plan of Treatment: Future Appointments (+ 6 months) and Future Tests (+/- 45 days) The Plan of Treatment section includes future care activities for the patient from all [place] treatmentfacilities. This section includes future appointments and future orders which are active, pending or scheduled. Future Appointments This section includes appointments that were scheduled to occur 6 months from the date of the Encounter, up to a maximum of 20 appointments. The data comes from all [place] treatment facilities. Appointment Date/Time Appointment Type Appointme nt Facility Name Jun 03, 2024 10:00 AM [facility]ORY - NONE [place] [facility] Jun 05, 2024 09:30 AM [facility] - NONE [facility] Jun 17, 2024 08:00 AM [facility] Jun 17, [facility]24 09:00 AM [facility] [place] [facility] Jun 25, 2024 08:00 AM [facility] Jun 26, 2024 08:20 AM AMBULATORY - SURGERY [place] [facility] Jun 29, 2024 01:30 PM [facility]ORY - NONE [facility] [facility] Jul 15, 2024 09:00 AM AM[facility]ATORY - NONE [place] Jul 27, 2024 08:00 AM AMBULATORY - SURGERY [place] Jul 29, 2024 01:00 PM AMBULATORY - MEDICINE [place] [facility] August 03, 2024 07:00 AM [facility] - NONE [facility] [facility] Sep 23, 2024 10:00 AM [facility] Nov 03, 2024 09:40 AM AMBULATORY - SURGERY [place] [facility] Active, Pending, and Scheduled Orders This section includes a listing of several types of active, pending, and scheduled orders, including clinic medications orders, diagnostic test orders, procedure orders and consult orders; where the start date of the order is 45 days before the date of the Encounter or 45 days after the date of theEncounter. The data comes from all [place] treatment facilities. Test Date/Time Test Type Test Details Facility Name Jun 26, 2024 09:07 AM Consult Order PAIN CLINI C ANESTHESIOLOGY/PAIN CD OUTPATIENT Cons Machine [facility] Lab Results: +/- 30 days of the encounter This section includes the Chemistry and Hematology Lab Results on record with [place] for the patient. Radiology Reports and Pathology Reports are provided separately, in subsequent sections. Lab Results This section contains the Chemistry/Hematology Results that were resulted 30 days before or 30 daysafter the date of the Encounter. Date/Time Source Result Type Result - Unit Interpretation Reference Range Specimen Type Comment May 05, 2024 09:06 AM [facility] N MICROALBUMIN/CREAT RATIO URINE Specimen Type: URINE No comment entered. Ordering Provider: MARTHA HENLEY Report Released Date/Time: Mar 23, 2024 10:36 AM Reporting Lab: [address] [address] Performing Lab: [address] [address] CREATININE 54.5 mg/dL MICROALBUMIN QUANT 64.7 mg/L H 0.0-30.0 .MICROALBUMIN/CREA RATIO 118.7 ug/mg{creat} May 05, 2024 08:58 AM [facility] GLYCOHEMOGLOBIN BLOOD Specimen Type: BLOOD Comment: [facility] guidelines for A1c interpretation: Glycemic control targets are based on Shared Decision Making between clinicians and patients. Criteria used to establish an A1c target recommendation can be found at https://www.ar.gov/qualityandpatientsafety/ and include the use of result accuracy [...] 8.73 and 9.27. Ref: https://ngsp.org/CAPdata.asp. The in-house [employer] D-100 analyzer has a historical CV <= 2%. Contact the laboratory for further performance characteristics of this assay. Ordering Provider: MARTHA HENLEY Report Released Date/Time: Mar 23, 2024 10:36 AM Reporting Lab: [address] [id number] Performing Lab: [address] [address] GLYCOHEMOGLOBIN 8.0 H 4.4-5.6 May 05, 2024 08:58 AM [facility] PAN[facility] 1 PLASMA Specimen Type: PLASM A [...] Mar 23, 2024 10:36 AM Reporting Lab: [facility] [address] [facility] [address] Performing Lab: [address] [address] CREATININE 1.34 mg/dL H 0.72-1.25 UREA NITROGEN [...] the Encounter. The data comes from all [place] treatment facilities. Date/Time Radiology Report Provider Source Jun 17, 2024 08:36 AM MRI C SPINE W/O CO NTRAST: KATE CARTER [id number] -1960 M Ex Date: JUN 17, 2024@08:36 Req Phys: MARTHA HENLEY [facility] (Req'g Lo Img Loc: [facility] Service: Unknown [place] [id number] (Case [id number] COMPLETE) MRI C SPINE W/O CONTRAST (MRI Detailed) CPT:84912 Reason for Study: SEE CLINICAL HISTORY Clinical History: STATUS OF PLAIN FILMS:Done, exam date/impression above. MRI Screening (Required): IMPLANTED DEVICE DOCUMENTATION 03/11/2024 09:29 Local Title: IMPLANTED CARDIAC DEVICE Standard Title: CLINICAL WARNING Patient has an Implanted Cardiac Device. Cardiac Device Type: BIV ICD Data Clerk: [facility] Device details: Generator - [employer], model [id number], SN [id number]. RA lead - [employer], model [id number], SN [id number]. RV lead - [employer], model 7122Q, SN [id number]. LV - [employer], model 1458QL, SN [id number]. Parameters: RA - threshold - 0.25v@0.5ms, 460 ohms, sensing - >5mV RV - threshold - 0.25v@0.5ms, 640 ohms, sensing - >12mV LV - threshold - 1.25v@0.5ms, 700 ohms. DFT's - were not assessed. Shock coil impedance - 73 ohms. Implant 03/10/2024 Dr. Mckinney Signed by: /es/ RUTHANN BARONE RN 03/11/2024 09:32 Does the [place] have any Cardiac Implants? ICD Does the have any implanted stimulators? None Does the have cochlear implants? No Does the have Cerebral aneurysm clip(s)? No Does the have any shrapnel? No If yes, where in your body? Please list other implants not listed above: MRI table has a weight limit of 551 lbs. [place]'s Weight: *198 lb [89.81 kg] (03/16/2024 10:02) Is this patient claustrophobic?: No REASON FOR EXAM: OTHER (provide detailed justification for your request) PERTINENT PATIENT HISTORY: Cervical radiculopathy Risk factors for GADOLINIUM NEPHROGENIC SYSTEMIC SCLEROSIS: Report Status: Verified Date Reported: JUN 17, 2024 Date Verified: JUN 17, 2024 Alum Operator E-Sig: Report: KATE LIBRADO CARTER 1960 EXAM: MRI C SPINE W/O [...] Staff: FATUMA GARCIA, Staff Physician Verified by squeegeer and former for FATUMA GARCIA /[facility] Encounter Notes: All associated encounter notes This section contains the clinical notes associated to the Encounter. Date/Time Encounter Note(s) Provider Source May 20, 2024 01:35 PM NONVA NOTE: LOCAL TITLE: [facility] CARE-REQUEST FOR SERVICE NOTE STANDARD TITLE: NONVA NOTE DATE OF NOTE: MAY 20, 2024@13:35 ENTRY DATE: MAY 20, 2024@13:35:04 AUTHOR: ANITRA MOLINA EXP COSIGNER: URGENCY: STATUS: COMPLETED Request for Services (RFS) documentation has been scanned to [facility] Consult: [facility]ITY [id number] Consult No: [id number] Date scanned: May A Request for Service (RFS) form [id number] has been received which includes the following: Care Requested:CONTINUATION OF CARE ICD-10 Dx code: UNK Date VA received request: May Date service required: UNK Requesting Community Provider Information: Name of Ordering Provider: Cristy Gabriel Office:[facility] Address, [facility], State: [address] [place] [address], [place], [place], [facility] /amando/ ANITRA ALVARADO Signed: 05/20/2024 13:36 Receipt Acknowledged By: 05/21/2024 09:55 /es/ ESTEBAN HURTADO APRN LICENSED NURSE PRACTITIONER ANITRA MOLINA-MARÍA [facility]
--- OUTSIDE RECORDS SUMMARY | 2024-07-14 06:50 | XMS_ITS | Continuity of Care Document ---
Author Name [facility] Organization [facility] Care Team Providers Care Clerical Methods Analyst Name Role Phone [facility] Unavailable Unavailable Problems Combined list of problems from Department of Defense and [facility] facilities. It does not include entries that were removed or entered in error. Problem Status Onset Date Problem Type Date of Resolution Comments Source Surgical Arthroscopy of the Shoulder Region with Limited Debridement Active 01/29/20 07 Condition [facility] Coracoacromial Ligament Release Inactive 01/29/20 07 Condition 01/28/2019 [facility] Age related macular degeneration Active Condition Apr 02, 2019 Entered By: MARTHA HENLEY Comment: ophthal eval 03/06/19: AMD - non Ex intermediate OD [facility] Basal cell carcinoma of skin Active Condition [facility] Bilateral plantar fasciitis Active Condition [facility] CAD Active Condition Apr 10 13 Entered By: MARTHA ANDRADE Comment: calcium scorin total, LAD 413, RCA 230, LCX 65 [facility] Carpal Tunnel Syndrome * (ICD-9-CM 354.0) Active Condition Jul 09 2 Entered By: SAMIA FUNES JR Comment: mild, right [facility] Coronary arteriosclerosis Active Condition [facility] Coronary artery disease Active Condition [facility] Degeneration of cervical intervertebral disc Active Condition [facility] Diabetes mellitus (SNOMED CT 46159060) Active Condition [facility] Diabetic neuropathy (SNOMED CT 119704315) Active Condition [facility] Erectile dysfunction Active Condition [facility] Essential hypertension (SNOMED CT 55903877) Active Condition [facility] Fatty liver Active Condition [facility] Gastroesophageal reflux disease Active Condition [facility] GERD - Gastro-esophageal reflux disease (SNOMED CT 728052637) Active Condition [facility] Glaucoma Active Condition Apr 02 20 Entered By: MARTHA HENLEY Comment: ophthal eval 03/06/19: open angle, moderate OS [facility] Hyperlipidemia (SNOMED CT 10680446) Active Condition [facility] Hypertension Active Condition [facility] LTG - Low tension glaucoma Active Condition [facility] 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 Condition [facility] Obstructive sleep apnea syndrome (SNOMED CT 51067230) Active Condition [facility] Plantar fasciitis (SNOMED CT 378128207) Active Condition [facility] Arthralgia * (ICD-9-CM 719.40) Inactive Condition 01/16/2012 [facility] Bursitis Inactive Condition 01/16/2012 [facility] Chest Pain NOS Inactive Condition 07/24/2018 [facility] FOOT PAIN Inactive Condition 01/16/2012 [facility] Impingement Syndrome Inactive Condition 01/28/2019 [facility] Infection of toe Inactive Condition 07/24/2018 [facility] Inactive Condition 01/16/2012 [facility] Other Obesity due to Excess Calories Inactive Condition 01/28/2019 [facility] Pain in joint involving shoulder region (ICD-9-CM 719.41) Inactive Condition 01/16/2012 [facility] Screening for Malignant Neoplasms of colon Inactive Condition 01/28/2019 [facility] Tear, Rotator Cuff Inactive Condition 01/28/2019 [facility] TRUNK Inactive Condition 01/16/2012 [facility] TRUNK Inactive Condition 01/16/2012 [facility] UNCERTAIN BEHAVIOR Inactive Condition 01/16/2012 [facility] UPPER RESPIRATORY INFECTION Inactive Condition 06/24/2008 [facility] Diagnosis: ICD-10-CM I42.9 Cardiomyopathy, unspecified Active Diagnosis [facility] Diagnosis: ICD-10-CM Z71.89 Other specified counseling Active Diagnosis [facility] Diagnosis: ICD-10-CM Z71.9 Counseling, unspecified Active Diagnosis [facility] Diagnosis: ICD-10-CM M48.02 Spinal stenosis, cervical region Active Diagnosis [facility] Diagnosis: ICD-10-CM D18.01 Hemangioma of skin and subcutaneous tissue Active Diagnosis [facility] Diagnosis: ICD-10-CM M50.30 Other cervical disc degeneration, unsp cervical region Active Diagnosis [facility] Diagnosis: ICD-10-CM I25.5 Ischemic cardiomyopathy Active Diagnosis [facility] Diagnosis: ICD-10-CM E11.65 Type 2 diabetes mellitus with hyperglycemia Active Diagnosis [facility] Diagnosis: ICD-10-CM E10.42 Type 1 diabetes mellitus with diabetic polyneuropathy Active Diagnosis [facility] Diagnosis: ICD-10-CM Z23 Encounter for immunization Active Diagnosis [facility] Diagnosis: ICD-10-CM Z48.812 Encntr for surgical aftcr following surgery on the circ sys Active Diagnosis [facility] Diagnosis: ICD-10-CM I25.10 Athscl heart disease of [place] coronary artery w/o ang pctrs Active Diagnosis [facility] Diagnosis: ICD-10-CM Z51.81 Encounter for therapeutic drug level monitoring Active Diagnosis [facility] Diagnosis: ICD-10-CM Z13.6 Encounter for screening for cardiovascular disorders Active Diagnosis [facility] Admit Reason: icm Active Diagnosis [facility] Diagnosis: ICD-10-CM I10 Essential (primary) hypertension Active Diagnosis [facility] Diagnosis: ICD-10-CM H35.3132 Nexdtve age-related mclr degn, bilateral, intermed dry stage Active Diagnosis [facility] Diagnosis: ICD-10-CM I50.22 Chronic systolic (congestive) heart failure Active Diagnosis [facility] Diagnosis: ICD-10-CM H40.003 Preglaucoma, unspecified, bilateral Active Diagnosis [facility] Diagnosis: ICD-10-CM E11.40 Type 2 diabetes mellitus with diabetic neuropathy, unsp Active Diagnosis [facility] Diagnosis: ICD-10-CM L57.0 Actinic keratosis Active Diagnosis [facility] Diagnosis: ICD-10-CM H40.9 Unspecified glaucoma Active Diagnosis [facility] Diagnosis: ICD-10-CM H35.30 Unspecified macular degeneration Active Diagnosis [facility] Diagnosis: ICD-10-CM H52.4 Presbyopia Active Diagnosis [facility] Diagnosis: ICD-10-CM M72.2 Plantar fascial fibromatosis Active Diagnosis [facility] N Diagnosis: ICD-10-CM H35.3130 Nexdtve age-related mclr degn, bilateral, stage unspecified Active Diagnosis [facility] Diagnosis: ICD-10-CM I25.89 Other forms of chronic ischemic heart disease Active Diagnosis [facility] Medications Combined list of outpatient medications from Department of Defense and [facility] facilities.Medications provided include 1) outpatient medications from the last 15 months, and 2) patient-reported medications. Medication Details Route Status Patient Instructions Prescription Expires Prescription Number Last Dispense Date Ordering Provider Order Date Order Qty Source ACETAMINOPH EN 325MG TAB TAKE TWO TABLETS BY MOUTH THREE TIMES A DAY NEEDED FOR PAIN DO NOT TAKE MORE THAN 12 TABLETS PER DAY ORAL ACTIVE 03/17/2025 [id number] 5 BRITTANY HENLEY K 2023 200 [place] [facility] ACETAMINOPH EN 325MG TAB TAKE TWO TABLETS BY MOUTH TWICE A DAY NEEDED FOR PAIN - DO NOT TAKE MORE THAN 12 TABLETS PER DAY ORAL DISCONT INUED (EDIT) 01/14/2025 [id number] 4 BRITTANY HENLEY K 2023 100 [place] ACETAMINOPH EN 325MG TAB TAKE TWO TABLETS BY MOUTH TWICE A DAY NEEDED FOR PAIN - DO NOT TAKE MORE THAN 12 TABLETS PER DAY ORAL DISCONT INUED 07/28/2024 [id number] 4 BRITTANY HENLEY K 2023 100 [place] ACETAMINOPH EN 325MG TAB TAKE TWO TABLETS BY MOUTH TWICE A DAY NEEDED FOR PAIN - DO NOT TAKE MORE THAN 12 TABLETS PER DAY ORAL DISCONT INUED 12/10/2023 [id number] 4 BRITTANY HENLEY K 2022 100 [place] ASCORBIC ACID 500MG TAB TAKE TWO TABLETS BY MOUTH EVERY DAY ORAL ACTIVE Yazmin CARSON 2006 [facility] ASCORBIC ACID 500MG TAB TAKE TWO TABLETS BY MOUTH DAILY ORAL ACTIVE BRITTANY HENLEY K 2022 [place] [facility] ASPIRIN 325MG TAB TAKE 81MG BY MOUTH EVERY DAY ORAL ACTIVE Selvin SALAS 2006 [facility] ASPIRIN 81MG TAB,EC TAKE ONE TABLET BY MOUTH DAILY FOR HEART ORAL ACTIVE 01/29/2025 [id number] 5 SAMUEL MARCOS 2023 90 [place] ASPIRIN 81MG TAB,EC TAKE ONE TABLET BY MOUTH DAILY FOR HEART ORAL DISCONT INUED 02/14/2024 [id number] 4 SAMUEL MARCOS 2022 90 [place] CHOLECALCIF CASSANDRA 25MCG (1,000UNIT) TAB TAKE ONE TABLET BY MOUTH DAILY FOR VITAMIN D SUPPLEME NT ORAL ACTIVE 12/03/2024 [id number] 5 BRITTANY HENLEY 2023 100 [place] [facility] CHOLECALCIF CASSANDRA 25MCG (1,000UNIT) TAB TAKE ONE TABLET BY MOUTH DAILY FOR VITAMIN D SUPPLEME NT ORAL DISCONT INUED 01/09/2024 [id number] 4 BRITTANY HENLEY 2022 100 [place] [facility] CLOPIDOGREL BISULFATE 75MG TAB TAKE ONE TABLET BY MOUTH DAILY TO THIN BLOOD ORAL 02/14/2024 [id number] SAMUEL MARCOS 2022 90 [place] COENZYME Q10 CAP/TAB TAKE 1 CAP/TAB BY MOUTH DAILY ORAL ACTIVE BRITTANY HENLEY K 2023 [place] [facility] CYCLOBENZAP RINE HCL 10MG TAB TAKE ONE TABLET BY MOUTH AT BEDTIME FOR MUSCLE SPASMS ORAL 09/14/2023 [id number] 4 BRITTANY HENLEY 2023 14 [place] [facility] EMPAGLIFLOZ IN 10MG TAB TAKE ONE TABLET BY MOUTH EVERY MORNING FOR HEART FAILURE ORAL ACTIVE 09/25/2024 [id number] 5 SAMUEL MARCOS 2023 90 [place] EMPAGLIFLOZ IN 10MG TAB TAKE ONE TABLET BY MOUTH EVERY MORNING FOR HEART FAILURE ORAL DISCONT INUED (EDIT) 02/14/2024 [id number] 4 SAMUEL MARCOS Yazmin 2022 90 [place] EZETIMIBE 10MG TAB TAKE ONE TABLET BY MOUTH EVERY EVENING FOR CHOLESTE ROL ORAL ACTIVE 09/25/2024 [id number] 5 PRITISAMUEL Arce 2023 90 [place] EZETIMIBE 10MG TAB TAKE ONE TABLET BY MOUTH EVERY EVENING FOR CHOLESTE ROL ORAL DISCONT INUED (EDIT) 01/09/2024 [id number] 4 BRITTANY HENLEY 2022 90 [place] [facility] FISH OIL CAP/TAB 1000MG THREE TIMES A DAY ACTIVE Selvin SALAS 2006 [facility] FLUTICASONE PROPIONATE 50MCG/SPRAY SOLN,NASAL, 16GM USE 1 SPRAY IN EACH NOSTRIL DAILY FOR NASAL ALLERGY NASAL SUSPEND ED 11/11/2024 [id number] 5 BRITTANY HENLEY 2023 3 [place] FLUTICASONE PROPIONATE 50MCG/SPRAY SOLN,NASAL, 16GM USE 1 SPRAY IN EACH NOSTRIL DAILY FOR NASAL ALLERGY NASAL DISCONT INUED 10/22/2024 [id number] 4 BRITTANY HENLEY 2023 2 [place] FLUTICASONE PROPIONATE 50MCG/SPRAY SOLN,NASAL, 16GM USE 1 SPRAY IN EACH NOSTRIL DAILY FOR NASAL ALLERGY NASAL DISCONT INUED 10/13/2023 [id number] 4 BRITTANY HENLEY 2022 2 [place] FOLIC ACID 1MG TAB TAKE ONE TABLET BY MOUTH EVERY DAY ORAL ACTIVE Selvin SALAS 2006 [facility] FUROSEMIDE 20MG TAB TAKE ONE TABLET BY MOUTH DAILY NEEDED FOR FLUID FOR WEIGHT GAIN OF 3 POUNDS IN 24 HOURS OR 5 POUNDS IN 1 WEEK ORAL ACTIVE 07/29/2024 [id number] 5 SHAWN SHORT GABI E 2024 30 [place] GARLIC OIL CAP,ORAL TAKE 1000MG BY MOUTH EVERY DAY ORAL ACTIVE JOSUESelvin LUIS Alcantara 2006 [facility] GLIPIZIDE 10MG TAB TAKE ONE TABLET BY MOUTH TWICE A DAY FOR BLOOD SUGAR ORAL SUSPEND ED 06/30/2025 [id number] HENLEY,NA NCY K 2024 180 [place] GLIPIZIDE 10MG TAB TAKE TWO TABLETS BY MOUTH TWICE A DAY FOR DIABETES ORAL DISCONT INUED (EDIT) 12/10/2024 [id number] 5 HENLEY,NA NCY K 2023 360 [place] [facility] GLIPIZIDE 10MG TAB TAKE TWO TABLETS BY MOUTH TWICE A DAY FOR DIABETES ORAL DISCONT INUED 12/19/2023 [id number] 4 HENLEY,NA NCY K 2022 360 [place] [facility] GLUCOSE 4GM TAB,CHEW CHEW 4 TABLETS (16 GRAMS OF CARBS) BY MOUTH DIRECTED FOR LOW BLOOD SUGAR ORAL SUSPEND ED 05/29/2025 [id number] 5 HENLEY,NA NCY K 2024 90 [place] INSULIN,GLA RGINE,HUMAN 100 UNIT/ML INJ,SOLOSTA R,3ML INJECT 20 UNITS UNDER THE SKIN DAILY FOR BLOOD SUGAR -DISCARD PEN AFTER 28 DAYS OF USE. REPLACES GLARGINE -YFGN SUBCUT ANEOUS ACTIVE 06/30/2025 [id number] 5 HENLEY,NA NCY K 2024 5 [place] INSULIN,GLA RGINE,HUMAN 100 UNIT/ML INJ,SOLOSTA R,3ML INJECT 24 UNITS UNDER THE SKIN DAILY FOR BLOOD SUGAR -DISCARD PEN AFTER 28 DAYS OF USE. REPLACES GLARGINE -YFGN SUBCUT ANEOUS DISCONT INUED (EDIT) 05/12/2025 [id number] 5 HENLEY,NA PATRIZIAY K 2024 5 [place] [facility] INSULIN,GLA RGINE-YFGN 100UNIT/ML INJ PEN,3ML INJECT 24 UNITS UNDER THE SKIN DAILY FOR BLOOD SUGAR -DISCARD PEN AFTER 28 DAYS OF USE SUBCUT ANEOUS DISCONT INUED 05/12/2025 [id number] KALENA PATRIZIAY K 2024 5 [place] [facility] INSULIN,GLA RGINE-YFGN 100UNIT/ML INJ PEN,3ML INJECT 20 UNITS UNDER THE SKIN DAILY FOR BLOOD SUGAR -DISCARD PEN AFTER 28 DAYS OF USE SUBCUT ANEOUS DISCONT INUED (EDIT) 03/24/2025 [id number] 4 BRITTANY HENLEY K 2023 5 [place] [facility] INSULIN,GLA RGINE-YFGN 100UNIT/ML INJ PEN,3ML INJECT 17 UNITS UNDER THE SKIN DAILY FOR BLOOD SUGAR -DISCARD PEN AFTER 28 DAYS OF USE SUBCUT ANEOUS DISCONT INUED (EDIT) 10/15/2024 [id number] 4 BRITTANY HENLEY K 2023 5 [place] [facility] INSULIN,GLA RGINE-YFGN 100UNIT/ML INJ PEN,3ML INJECT 15 UNITS UNDER THE SKIN DAILY FOR BLOOD SUGAR -DISCARD PEN AFTER 28 DAYS OF USE SUBCUT ANEOUS DISCONT INUED (EDIT) 01/09/2024 [id number] 4 HENLEY,NA NCY K 2022 5 [place] [facility] LATANOPROST 0.005% SOLN,OPH PUT 1 DROP IN BOTH EYES AT BEDTIME FOR GLAUCOMA OPHTHA LMIC ACTIVE 04/16/2025 [id number] 5 BRIT CASTILLO 2024 10 [place] LATANOPROST 0.005% SOLN,OPH PUT 1 DROP IN BOTH EYES AT BEDTIME FOR GLAUCOMA OPHTHA LMIC DISCONT INUED 12/22/2023 [id number] PAT ADAM 2022 10 [place] LATANOPROST 0.005% SOLN,OPH PUT 1 DROP IN BOTH EYES AT BEDTIME FOR GLAUCOMA OPHTHA LMIC 02/16/2024 [id number] PAT ADAM 2023 10 [place] MAGNESIUM OXIDE 420MG TAB TAKE TWO TABLETS BY MOUTH DAILY ORAL ACTIVE BRITTANY HENLEY K 2022 [place] [facility] METFORMIN HCL 500MG 24HR TAB,SA TAKE TWO TABLETS BY MOUTH TWICE A DAY FOR DIABETES ORAL SUSPEND ED 02/05/2025 [id number] 5 BRITTANY HENLEY 2023 120 [place] [facility] METFORMIN HCL 500MG 24HR TAB,SA TAKE TWO TABLETS BY MOUTH TWICE A DAY FOR DIABETES ORAL DISCONT INUED 01/09/2024 [id number] 4 BRITTANY HENLEY 2022 360 [place] [facility] METOPROLOL SUCCINATE 100MG TAB,SA TAKE ONE AND ONE-HALF TABLETS BY MOUTH DAILY FOR HEART ORAL ACTIVE 09/25/2024 [id number] 5 SAMUEL MARCOS 2023 135 [place] METOPROLOL SUCCINATE 100MG TAB,SA TAKE ONE-HALF TABLET BY MOUTH DAILY FOR HEART FAILURE ORAL DISCONT INUED BY PROVIDE R 11/20/2023 [id number] 4 DEJASHAWN 2023 45 [place] METOPROLOL SUCCINATE 200MG TAB,SA TAKE ONE-HALF TABLET BY MOUTH DAILY FOR HEART ORAL DISCONT INUED (EDIT) 12/04/2023 [id number] 4 DEJA,SHAWN Hayden 2023 45 [place] METOPROLOL SUCCINATE 50MG TAB,SA TAKE ONE-HALF TABLET BY MOUTH DAILY FOR HEART FAILURE ORAL DISCONT INUED (EDIT) 02/14/2024 [id number] 4 SAMUEL MARCOS 2022 45 [place] MULTIVIT/OP HTH AREDS2/LUTE IN/ZEAXANTH IN CAP/TAB TAKE 1 SOFTGEL BY MOUTH TWICE A DAY AFTER MEALS FOR EYE HEALTH ORAL ACTIVE 01/17/2025 [id number] 5 HENLEY,NA NCY K 2023 180 [place] MULTIVIT/OP HTH AREDS2/LUTE IN/ZEAXANTH IN CAP/TAB TAKE 1 SOFTGEL BY MOUTH TWICE A DAY AFTER MEALS FOR EYE HEALTH ORAL DISCONT INUED 01/09/2024 [id number] 4 HENLEY,NA NCY K 2022 120 [place] [facility] MULTIVITAMI N/MINERALS SENIOR FORMULA TAB TAKE ONE TABLET BY MOUTH DAILY ORAL ACTIVE KALE,NA PATRIZIAY K 2022 [place] [facility] OMEPRAZOLE 20MG CAP,EC TAKE ONE CAPSULE BY MOUTH TWICE A DAY FOR STOMACH. TAKE ON AN EMPTY STOMACH ORAL ACTIVE 02/05/2025 [id number] 5 HENLEY,NA NCY K 2023 180 [place] [facility] OMEPRAZOLE 20MG CAP,EC TAKE ONE CAPSULE BY MOUTH TWICE A DAY FOR STOMACH. TAKE ON AN EMPTY STOMACH ORAL DISCONT INUED 01/09/2024 [id number] 4 HENLEY,NA NCY K 2022 180 [place] [facility] OTHER - ENTER NAME [facility] [place] USE NOT APPLIC ABLE ACTIVE JOSUEF PAULADOON K 2012 [facility] OTHER - ENTER NAME IN COMMENTS [facility] USE NOT APPLIC ABLE ACTIVE MISAGHI,F AREDOON K 2012 [facility] RIBOFLAVIN TAB TAKE 1 TAB BY MOUTH EVERY DAY ORAL ACTIVE Yazmin CARSON 2006 [facility] ROSUVASTATI N CA 40MG TAB TAKE ONE TABLET BY MOUTH DAILY FOR CHOLESTE ROL ORAL ACTIVE 09/25/2024 [id number] SAMUEL MARCOS 2023 90 [place] ROSUVASTATI N CA 40MG TAB TAKE ONE TABLET BY MOUTH DAILY FOR CHOLESTE ROL ORAL DISCONT INUED (EDIT) 02/14/2024 [id number] 4 SAMUEL MARCOS 2022 90 [place] SACUBITRIL 24MG/VALSAR SAINI 26MG TAB TAKE 1 TABLET BY MOUTH TWICE A DAY FOR HEART FAILURE ORAL DISCONT INUED BY JM R 05/08/2024 [id number] 4 SAMUEL MARCOS 2023 180 [place] SACUBITRIL 49MG/VALSAR SAINI 51MG TAB TAKE 1 TABLET BY MOUTH TWICE A DAY FOR HEART FAILURE - THIS IS A DOSE INCREASE . START THIS INCREASE D DOSE ON 07/31/2023 ORAL DISCONT INUED (EDIT) 07/16/2024 [id number] 4 DEJA,SHAWN GABI Hayden 2023 180 [place] SACUBITRIL 97MG/VALSAR SAINI 103MG TAB TAKE 1 TABLET BY MOUTH TWICE A DAY FOR HEART FAILURE ORAL ACTIVE 01/29/2025 [id number] 5 SAMUEL MARCOS 2023 180 [place] SACUBITRIL 97MG/VALSAR SAINI 103MG TAB TAKE 1 TABLET BY MOUTH TWICE A DAY FOR HEART FAILURE DOSE INCREASE ORAL DISCONT INUED (EDIT) 02/27/2024 [id number] 4 DEJA,SHAWN GABI Hayden 2023 180 [place] SPIRONOLACT ONE 25MG TAB TAKE ONE TABLET BY MOUTH DAILY FOR HEART FAILURE ORAL ACTIVE 09/25/2024 [id number] SAMUEL MARCOS 2023 90 [place] SPIRONOLACT ONE 25MG TAB TAKE ONE-HALF TABLET BY MOUTH DAILY FOR HEART FAILURE ORAL DISCONT INUED (EDIT) 08/02/2024 [id number] 4 DEJA,SHAWN GABI Hayden 2023 15 [place] [facility] SPIRONOLACT ONE 25MG TAB TAKE ONE-HALF TABLET BY MOUTH DAILY FOR HEART FAILURE ORAL DISCONT INUED 06/04/2024 [id number] 4 DEJASHAWN GABI E 2023 15 [place] [facility] VALSARTAN 40MG TAB TAKE ONE TABLET BY MOUTH TWICE A DAY FOR BLOOD PRESSURE /HEART ORAL DISCONT INUED BY PROVIDE R 02/14/2024 [id number] 4 SAMUEL MARCOS 2022 180 [place] VITAMIN E 400UNT CAP TAKE 1 CAPSULE BY MOUTH EVERY DAY ORAL ACTIVE Yazmin CARSON F 2006 [facility] ZINC SULFATE CAP,ORAL TAKE BY MOUTH ORAL ACTIVE JOHAN BAILEY 2010 [facility] Allergies, Adverse Reactions, Alerts Combined list of allergies from Department of Defense and Veterans Affairs facilities. It does not include entries that were removed or entered in error. Substance Category Reaction Severity Reaction type Status Date Reported Comments Source GABAPENTIN Propensity to adverse reactions to drug (finding) Dizziness active 9 [facility] PREGABALIN Propensity to adverse reactions to drug (finding) active 9 [facility] ROSUVASTATIN Propensity to adverse reactions to drug (finding) Muscle pain active 9 [facility] SIMVASTATIN Propensity to adverse reactions to drug (finding) Muscle pain active 9 [facility] VANCOMYCIN Propensity to adverse reactions to drug (finding) Eruption active 9 [facility] Immunizations Combined list of available immunizations from the Department of Defense and Veterans Affairs facilities. Immunization Series Date Given Administered By Site Reaction Lot Number CVX Code Drug [employer] Wiring Technician Status Comments Source PNEUMOCOCCAL CONJUGATE PCV20, POLYSACCHARID E [id number] CONJUGATE, ADJUVANT, PF 2024 DOMINGA SANCHEZ RIGHT DELTO ID [id number] 216 complet ed [place], Reviewed risks vs benefits with and advised to stay in lobby for approx 30 mins for obs. No ASE's noted, and expressed understan ding. made aware. [place] [facility] TDAP 2024 DOMINGA SANCHEZ LEFT DELTO ID [id number] 115 complet ed [place]E [place], Reviewed risks vs benefits with and advised to stay in lobby for approx 30 mins for obs. No ASE's noted, and expressed understan ding. made aware. [place] [facility] ZOSTER RECOMBINANT 2 2019 187 complet ed [place] [facility] ZOSTER RECOMBINANT 1 2018 187 complet ed [place] [facility] INFLUENZA, INJECTABLE, QUADRIVALENT, PRESERVATIVE FREE 2018 150 complet ed [facility] INFLUENZA, SEASONAL, INJECTABLE 2018 141 complet ed [facility] INFLUENZA, SEASONAL, INJECTABLE 2018 141 complet ed [place] [facility] INFLUENZA, INJECTABLE, QUADRIVALENT, PRESERVATIVE FREE 2017 150 complet ed [facility] TETANUS DIPHTHERIA PERTUSSIS (Tdap) (HISTORICAL) 2017 complet [facility] INFLUENZA, SEASONAL, INJECTABLE, PRESERVATIVE FREE 2016 140 complet ed [facility] FLU,3 YRS (HISTORICAL) 2015 88 complet [facility] FLU,3 YRS (HISTORICAL) 2014 88 complet ed [facility] FLU,3 YRS (HISTORICAL) 2013 88 complet ed [facility] INFLUENZA, UNSPECIFIED FORMULATION 2012 88 [facility] INFLUENZA, UNSPECIFIED FORMULATION 2010 88 complet ed [facility] NOVEL INFLUENZA-H1N 1-09, ALL FORMULATIONS 2009 128 complet ed [employer] [facility] PNEUMOCOCCAL POLYSACCHARID E [id number] 2009 33 complet ed [facility] PNEUMOCOCCAL, UNSPECIFIED FORMULATION 2009 109 complet ed [facility] INFLUENZA, UNSPECIFIED FORMULATION 2008 88 complet [facility] FLU,3 YRS (HISTORICAL) 2007 88 complet ed [facility] INFLUENZA, UNSPECIFIED FORMULATION 2006 88 [facility] Results Combined list of recent chemistry, hematology and other laboratory results from Department of Defense and Veterans Affairs, ranging from 15 months to all on record, depending upon the facility. Order Name Results Value Reference Range Date Interpretation Specimen Comments Source MICROALB UMIN/CRE AT RATIO CREATININE [MASS/VOLU ME] IN URINE 54.5 mg/dL 05/05 Specimen Type: URINE No comment entered. Ordering Provider: HE HENLEY Report Released Date/Time: Mar 23, 2024 10:36 AM Reporting Lab: [place] [id number] Performing Lab: [place] [id number] MICROALB UMIN/CRE AT RATIO MICROALBUM IN [MASS/VOLU ME] IN URINE 64.7 mg/L 0.0 - 30.0 05/05 H Specimen Type: URINE No comment entered. Ordering Provider: HE HENLEY Report Released Date/Time: Mar 23, 2024 10:36 AM Reporting Lab: [place] [id number] Performing Lab: [address] MICROALB UMIN/CRE AT RATIO MICROALBUM IN/CREATIN INE [MASS RATIO] IN URINE 118.7 ug/mg{cr eat} 05/05 Specimen Type: URINE No comment entered. Ordering Provider: HE HENLEY Report Released Date/Time: Mar 23, 2024 10:36 AM Reporting Lab: [place] [id number] Performing Lab: [address] GLYCOHEM OGLOBIN HEMOGLOBIN A1C/HEMOGL OBIN.TOTAL IN BLOOD BY HPLC 8.0 4.4 - 5.6 05/05 H Specimen Type: BLOOD Comment: [facility] guidelines for A1c interpretat ion: Glycemic control targets are based on Shared Decision Making between clinicians and patients. Criteria used to establish an A1c target recommendat ion can be found at https://www .va.gov/sancho lityandpati entsafety/ and include the use of result accuracy and precision(C V) of the A1c tests clinicians utilize at their own sites of practice. Values obtained from A1C measurement s can vary. For typical A1C assays, a reported value of 7.0 could actually be between 6.72 and 7.28 if measured by a reference method. A reported value of 9.0 could actually be between 8.73 and 9.27. Ref: https://ngs p.org/CAPda ta.asp. The in-house [employer]See[employer] D-100 analyzer has a historical CV <= 2%. Contact the laboratory for further performance characteris tics of this assay. Ordering Provider: HE HENLEY Report Released Date/Time: Mar 23, 2024 10:36 AM Reporting Lab: [address] [phone] Performing Lab: [address] [address] [facility] PANEL 1 CREATININE [MASS/VOLU ME] IN SERUM OR PLASMA 1.34 mg/dL 0.72 - 1.25 05/05 H Specimen Type: PLASMA Comment: Estimated Glomerular Filtration Rate (eGFR) calculated using the 2020 Chronic Kidney Disease-Epi demiology (CKD-EPI) Collaborati on creatinine equation; units of measure are mL/min/1.73 m2. Results are only valid for adults (>=18 years) whose serum creatinine is in a steady state. eGFR calculation s are not valid for patients with acute kidney injury and for patients on dialysis. Creatinine- based estimates of kidney function may also be inaccurate in patients with reduced creatinine generation due to decreased muscle mass (e.g., malnutritio n, severe hypoalbumin emia, sarcopenia, chronic neuromuscul ar disease, amputations , severe heart failure or liver disease) and in patients with increased creatinine generation due to increased muscle mass (e.g., muscle builders, anabolic steroids) or increased dietary intake. As drug clearance is proportiona l to total GFR and not GFR indexed to body surface area (BSA), in individuals with a BSA substantial ly different than 1.73 m2, drug dosing should be based on the reported eGFR value de-indexed from BSA by multiplying by the individual' s BSA and dividing by 1.73. CKD is diagnosed based on abnormaliti es of kidney structure or function, present for >3 months, with implication s for health and disease. CKD is classified and staged based on cause, eGFR and albuminuria (quantified as urine albumin to creatinine ratio). An eGFR >60 mL/min/1.73 m2 in the absence of increased urine albumin excretion or structural abnormaliti es does not represent CKD. eGFR CKD Interpretat ion (mL/min/1.7 3 m2) stage >=90 G1 Normal 60-89 G2 Mild decrease 45-59 G3A Mild to moderate decrease 30-44 G3B Moderate to severe decrease 15-29 G4 Severe decrease <15 G5 Kidney failure Ordering Provider: HE HENLEY Report Released Date/Time: Mar 23, 2024 10:36 AM Reporting Lab: [place] [address] [address] Performing Lab: [place] [address] [address] [facility] PANEL 1 UREA NITROGEN [MASS/VOLU ME] IN SERUM OR PLASMA 29 mg/dL 05/05 H Specimen Type: PLASMA Comment: Estimated Glomerular Filtration Rate (eGFR) calculated using the 2020 Chronic Kidney Disease-Epi demiology (CKD-EPI) Collaborati on creatinine equation; units of measure are mL/min/1.73 m2. Results are only valid for adults (>=18 years) whose serum creatinine is in a steady state. eGFR calculation s are not valid for patients with acute kidney injury and for patients on dialysis. Creatinine- based estimates of kidney function may also be inaccurate in patients with reduced creatinine generation due to decreased muscle mass (e.g., malnutritio n, severe hypoalbumin emia, sarcopenia, chronic neuromuscul ar disease, amputations , severe heart failure or liver disease) and in patients with increased creatinine generation due to increased muscle mass (e.g., muscle builders, anabolic steroids) or increased dietary intake. As drug clearance is proportiona l to total GFR and not GFR indexed to body surface area (BSA), in individuals with a BSA substantial ly different than 1.73 m2, drug dosing should be based on the reported eGFR value de-indexed from BSA by multiplying by the individual' s BSA and dividing by 1.73. CKD is diagnosed based on abnormaliti es of kidney structure or function, present for >3 months, with implication s for health and disease. CKD is classified and staged based on cause, eGFR and albuminuria (quantified as urine albumin to creatinine ratio). An eGFR >60 mL/min/1.73 m2 in the absence of increased urine albumin excretion or structural abnormaliti es does not represent CKD. eGFR CKD Interpretat ion (mL/min/1.7 3 m2) stage >=90 G1 Normal 60-89 G2 Mild decrease 45-59 G3A Mild to moderate decrease 30-44 G3B Moderate to severe decrease 15-29 G4 Severe decrease <15 G5 Kidney failure Ordering Provider: HE HENLEY Report Released Date/Time: Mar 23, 2024 10:36 AM Reporting Lab: [place] [address] [id number] Performing Lab: [place] [address] [address] [facility] PANEL 1 GLUCOSE [MASS/VOLU ME] IN SERUM OR PLASMA 186 mg/dL 74 - 100 05/05 H Specimen Type: PLASMA Comment: Estimated Glomerular Filtration Rate (eGFR) calculated using the 2020 Chronic Kidney Disease-Epi demiology (CKD-EPI) Collaborati on creatinine equation; units of measure are mL/min/1.73 m2. Results are only valid for adults (>=18 years) whose serum creatinine is in a steady state. eGFR calculation s are not valid for patients with acute kidney injury and for patients on dialysis. Creatinine- based estimates of kidney function may also be inaccurate in patients with reduced creatinine generation due to decreased muscle mass (e.g., malnutritio n, severe hypoalbumin emia, sarcopenia, chronic neuromuscul ar disease, amputations , severe heart failure or liver disease) and in patients with increased creatinine generation due to increased muscle mass (e.g., muscle builders, anabolic steroids) or increased dietary intake. As drug clearance is proportiona l to total GFR and not GFR indexed to body surface area (BSA), in individuals with a BSA substantial ly different than 1.73 m2, drug dosing should be based on the reported eGFR value de-indexed from BSA by multiplying by the individual' s BSA and dividing by 1.73. CKD is diagnosed based on abnormaliti es of kidney structure or function, present for >3 months, with implication s for health and disease. CKD is classified and staged based on cause, eGFR and albuminuria (quantified as urine albumin to creatinine ratio). An eGFR >60 mL/min/1.73 m2 in the absence of increased urine albumin excretion or structural abnormaliti es does not represent CKD. eGFR CKD Interpretat ion (mL/min/1.7 3 m2) stage >=90 G1 Normal 60-89 G2 Mild decrease 45-59 G3A Mild to moderate decrease 30-44 G3B Moderate to severe decrease 15-29 G4 Severe decrease <15 G5 Kidney failure Ordering Provider: HE HENLEY Report Released Date/Time: Mar 23, 2024 10:36 AM Reporting Lab: [place] [address] [phone] Performing Lab: [place] [address] [address] [facility] PANEL 1 SODIUM [MOLES/VOL UME] IN SERUM OR PLASMA 137 mmol/L 136 - 145 05/05 Specimen Type: PLASMA Comment: Estimated Glomerular Filtration Rate (eGFR) calculated using the 2020 Chronic Kidney Disease-Epi demiology (CKD-EPI) Collaborati on creatinine equation; units of measure are mL/min/1.73 m2. Results are only valid for adults (>=18 years) whose serum creatinine is in a steady state. eGFR calculation s are not valid for patients with acute kidney injury and for patients on dialysis. Creatinine- based estimates of kidney function may also be inaccurate in patients with reduced creatinine generation due to decreased muscle mass (e.g., malnutritio n, severe hypoalbumin emia, sarcopenia, chronic neuromuscul ar disease, amputations , severe heart failure or liver disease) and in patients with increased creatinine generation due to increased muscle mass (e.g., muscle builders, anabolic steroids) or increased dietary intake. As drug clearance is proportiona l to total GFR and not GFR indexed to body surface area (BSA), in individuals with a BSA substantial ly different than 1.73 m2, drug dosing should be based on the reported eGFR value de-indexed from BSA by multiplying by the individual' s BSA and dividing by 1.73. CKD is diagnosed based on abnormaliti es of kidney structure or function, present for >3 months, with implication s for health and disease. CKD is classified and staged based on cause, eGFR and albuminuria (quantified as urine albumin to creatinine ratio). An eGFR >60 mL/min/1.73 m2 in the absence of increased urine albumin excretion or structural abnormaliti es does not represent CKD. eGFR CKD Interpretat ion (mL/min/1.7 3 m2) stage >=90 G1 Normal 60-89 G2 Mild decrease 45-59 G3A Mild to moderate decrease 30-44 G3B Moderate to severe decrease 15-29 G4 Severe decrease <15 G5 Kidney failure Ordering Provider: HE HENLEY Report Released Date/Time: Mar 23, 2024 10:36 AM Reporting Lab: [place] [address] [phone] Performing Lab: [place] [address] [address] [facility] PANEL 1 POTASSIUM [MOLES/VOL UME] IN SERUM OR PLASMA 4.3 mmol/L 3.5 - 5.1 05/05 Specimen Type: PLASMA Comment: Estimated Glomerular Filtration Rate (eGFR) calculated using the 2020 Chronic Kidney Disease-Epi demiology (CKD-EPI) Collaborati on creatinine equation; units of measure are mL/min/1.73 m2. Results are only valid for adults (>=18 years) whose serum creatinine is in a steady state. eGFR calculation s are not valid for patients with acute kidney injury and for patients on dialysis. Creatinine- based estimates of kidney function may also be inaccurate in patients with reduced creatinine generation due to decreased muscle mass (e.g., malnutritio n, severe hypoalbumin emia, sarcopenia, chronic neuromuscul ar disease, amputations , severe heart failure or liver disease) and in patients with increased creatinine generation due to increased muscle mass (e.g., muscle builders, anabolic steroids) or increased dietary intake. As drug clearance is proportiona l to total GFR and not GFR indexed to body surface area (BSA), in individuals with a BSA substantial ly different than 1.73 m2, drug dosing should be based on the reported eGFR value de-indexed from BSA by multiplying by the individual' s BSA and dividing by 1.73. CKD is diagnosed based on abnormaliti es of kidney structure or function, present for >3 months, with implication s for health and disease. CKD is classified and staged based on cause, eGFR and albuminuria (quantified as urine albumin to creatinine ratio). An eGFR >60 mL/min/1.73 m2 in the absence of increased urine albumin excretion or structural abnormaliti es does not represent CKD. eGFR CKD Interpretat ion (mL/min/1.7 3 m2) stage >=90 G1 Normal 60-89 G2 Mild decrease 45-59 G3A Mild to moderate decrease 30-44 G3B Moderate to severe decrease 15-29 G4 Severe decrease <15 G5 Kidney failure Ordering Provider: HE HENLEY Report Released Date/Time: Mar 23, 2024 10:36 AM Reporting Lab: [place] [address] [address] Performing Lab: [place] [address] [address] [facility] PANEL 1 CHLORIDE [MOLES/VOL UME] IN SERUM OR PLASMA 105 mmol/L 98 - 107 05/05 Specimen Type: PLASMA Comment: Estimated Glomerular Filtration Rate (eGFR) calculated using the 2020 Chronic Kidney Disease-Epi demiology (CKD-EPI) Collaborati on creatinine equation; units of measure are mL/min/1.73 m2. Results are only valid for adults (>=18 years) whose serum creatinine is in a steady state. eGFR calculation s are not valid for patients with acute kidney injury and for patients on dialysis. Creatinine- based estimates of kidney function may also be inaccurate in patients with reduced creatinine generation due to decreased muscle mass (e.g., malnutritio n, severe hypoalbumin emia, sarcopenia, chronic neuromuscul ar disease, amputations , severe heart failure or liver disease) and in patients with increased creatinine generation due to increased muscle mass (e.g., muscle builders, anabolic steroids) or increased dietary intake. As drug clearance is proportiona l to total GFR and not GFR indexed to body surface area (BSA), in individuals with a BSA substantial ly different than 1.73 m2, drug dosing should be based on the reported eGFR value de-indexed from BSA by multiplying by the individual' s BSA and dividing by 1.73. CKD is diagnosed based on abnormaliti es of kidney structure or function, present for >3 months, with implication s for health and disease. CKD is classified and staged based on cause, eGFR and albuminuria (quantified as urine albumin to creatinine ratio). An eGFR >60 mL/min/1.73 m2 in the absence of increased urine albumin excretion or structural abnormaliti es does not represent CKD. eGFR CKD Interpretat ion (mL/min/1.7 3 m2) stage >=90 G1 Normal 60-89 G2 Mild decrease 45-59 G3A Mild to moderate decrease 30-44 G3B Moderate to severe decrease 15-29 G4 Severe decrease <15 G5 Kidney failure Ordering Provider: HE HENLEY Report Released Date/Time: Mar 23, 2024 10:36 AM Reporting Lab: [place] [address] [address] Performing Lab: [place] [address] [address] [facility] PANEL 1 CARBON DIOXIDE, TOTAL [MOLES/VOL UME] IN SERUM OR PLASMA 23 mmol/L - 05/05 Specimen Type: PLASMA Comment: Estimated Glomerular Filtration Rate (eGFR) calculated using the 2020 Chronic Kidney Disease-Epi demiology (CKD-EPI) Collaborati on creatinine equation; units of measure are mL/min/1.73 m2. Results are only valid for adults (>=18 years) whose serum creatinine is in a steady state. eGFR calculation s are not valid for patients with acute kidney injury and for patients on dialysis. Creatinine- based estimates of kidney function may also be inaccurate in patients with reduced creatinine generation due to decreased muscle mass (e.g., malnutritio n, severe hypoalbumin emia, sarcopenia, chronic neuromuscul ar disease, amputations , severe heart failure or liver disease) and in patients with increased creatinine generation due to increased muscle mass (e.g., muscle builders, anabolic steroids) or increased dietary intake. As drug clearance is proportiona l to total GFR and not GFR indexed to body surface area (BSA), in individuals with a BSA substantial ly different than 1.73 m2, drug dosing should be based on the reported eGFR value de-indexed from BSA by multiplying by the individual' s BSA and dividing by 1.73. CKD is diagnosed based on abnormaliti es of kidney structure or function, present for >3 months, with implication s for health and disease. CKD is classified and staged based on cause, eGFR and albuminuria (quantified as urine albumin to creatinine ratio). An eGFR >60 mL/min/1.73 m2 in the absence of increased urine albumin excretion or structural abnormaliti es does not represent CKD. eGFR CKD Interpretat ion (mL/min/1.7 3 m2) stage >=90 G1 Normal 60-89 G2 Mild decrease 45-59 G3A Mild to moderate decrease 30-44 G3B Moderate to severe decrease 15-29 G4 Severe decrease <15 G5 Kidney failure Ordering Provider: HE HENLEY Report Released Date/Time: Mar 23, 2024 10:36 AM Reporting Lab: [place] [address] [address] Performing Lab: [place] [address] [address] [facility] PANEL 1 CALCIUM [MASS/VOLU ME] IN SERUM OR PLASMA 9.4 mg/dL 8.4 - 10.2 05/05 Specimen Type: PLASMA Comment: Estimated Glomerular Filtration Rate (eGFR) calculated using the 2020 Chronic Kidney Disease-Epi demiology (CKD-EPI) Collaborati on creatinine equation; units of measure are mL/min/1.73 m2. Results are only valid for adults (>=18 years) whose serum creatinine is in a steady state. eGFR calculation s are not valid for patients with acute kidney injury and for patients on dialysis. Creatinine- based estimates of kidney function may also be inaccurate in patients with reduced creatinine generation due to decreased muscle mass (e.g., malnutritio n, severe hypoalbumin emia, sarcopenia, chronic neuromuscul ar disease, amputations , severe heart failure or liver disease) and in patients with increased creatinine generation due to increased muscle mass (e.g., muscle builders, anabolic steroids) or increased dietary intake. As drug clearance is proportiona l to total GFR and not GFR indexed to body surface area (BSA), in individuals with a BSA substantial ly different than 1.73 m2, drug dosing should be based on the reported eGFR value de-indexed from BSA by multiplying by the individual' s BSA and dividing by 1.73. CKD is diagnosed based on abnormaliti es of kidney structure or function, present for >3 months, with implication s for health and disease. CKD is classified and staged based on cause, eGFR and albuminuria (quantified as urine albumin to creatinine ratio). An eGFR >60 mL/min/1.73 m2 in the absence of increased urine albumin excretion or structural abnormaliti es does not represent CKD. eGFR CKD Interpretat ion (mL/min/1.7 3 m2) stage >=90 G1 Normal 60-89 G2 Mild decrease 45-59 G3A Mild to moderate decrease 30-44 G3B Moderate to severe decrease 15-29 G4 Severe decrease <15 G5 Kidney failure Ordering Provider: HE HENLEY Report Released Date/Time: Mar 23, 2024 10:36 AM Reporting Lab: [place] [address] [phone] Performing Lab: [place] [address] [address] [facility] PANEL 1 ANION GAP 3 IN SERUM OR PLASMA 9 meq/L 3 - 19 05/05 Specimen Type: PLASMA Comment: Estimated Glomerular Filtration Rate (eGFR) calculated using the 2020 Chronic Kidney Disease-Epi demiology (CKD-EPI) Collaborati on creatinine equation; units of measure are mL/min/1.73 m2. Results are only valid for adults (>=18 years) whose serum creatinine is in a steady state. eGFR calculation s are not valid for patients with acute kidney injury and for patients on dialysis. Creatinine- based estimates of kidney function may also be inaccurate in patients with reduced creatinine generation due to decreased muscle mass (e.g., malnutritio n, severe hypoalbumin emia, sarcopenia, chronic neuromuscul ar disease, amputations , severe heart failure or liver disease) and in patients with increased creatinine generation due to increased muscle mass (e.g., muscle builders, anabolic steroids) or increased dietary intake. As drug clearance is proportiona l to total GFR and not GFR indexed to body surface area (BSA), in individuals with a BSA substantial ly different than 1.73 m2, drug dosing should be based on the reported eGFR value de-indexed from BSA by multiplying by the individual' s BSA and dividing by 1.73. CKD is diagnosed based on abnormaliti es of kidney structure or function, present for >3 months, with implication s for health and disease. CKD is classified and staged based on cause, eGFR and albuminuria (quantified as urine albumin to creatinine ratio). An eGFR >60 mL/min/1.73 m2 in the absence of increased urine albumin excretion or structural abnormaliti es does not represent CKD. eGFR CKD Interpretat ion (mL/min/1.7 3 m2) stage >=90 G1 Normal 60-89 G2 Mild decrease 45-59 G3A Mild to moderate decrease 30-44 G3B Moderate to severe decrease 15-29 G4 Severe decrease <15 G5 Kidney failure Ordering Provider: HE HENLEY Report Released Date/Time: Mar 23, 2024 10:36 AM Reporting Lab: [facility] [place] [address] [facility] [address] Performing Lab: [facility] [address] [facility] [address] [facility] PANEL 1 GLOMERULAR FILTRATION RATE/1.73 SQ M.PREDICTE D [VOLUME RATE/AREA] IN SERUM, PLASMA OR BLOOD BY CREATININE -BASED FORMULA (CKD-EPI 2020) 59 05/05 Specimen Type: PLASMA Comment: Estimated Glomerular Filtration Rate (eGFR) calculated using the 2020 Chronic Kidney Disease-Epi demiology (CKD-EPI) Collaborati on creatinine equation; units of measure are mL/min/1.73 m2. Results are only valid for adults (>=18 years) whose serum creatinine is in a steady state. eGFR calculation s are not valid for patients with acute kidney injury and for patients on dialysis. Creatinine- based estimates of kidney function may also be inaccurate in patients with reduced creatinine generation due to decreased muscle mass (e.g., malnutritio n, severe hypoalbumin emia, sarcopenia, chronic neuromuscul ar disease, amputations , severe heart failure or liver disease) and in patients with increased creatinine generation due to increased muscle mass (e.g., muscle builders, anabolic steroids) or increased dietary intake. As drug clearance is proportiona l to total GFR and not GFR indexed to body surface area (BSA), in individuals with a BSA substantial ly different than 1.73 m2, drug dosing should be based on the reported eGFR value de-indexed from BSA by multiplying by the individual' s BSA and dividing by 1.73. CKD is diagnosed based on abnormaliti es of kidney structure or function, present for >3 months, with implication s for health and disease. CKD is classified and staged based on cause, eGFR and albuminuria (quantified as urine albumin to creatinine ratio). An eGFR >60 mL/min/1.73 m2 in the absence of increased urine albumin excretion or structural abnormaliti es does not represent CKD. eGFR CKD Interpretat ion (mL/min/1.7 3 m2) stage >=90 G1 Normal 60-89 G2 Mild decrease 45-59 G3A Mild to moderate decrease 30-44 G3B Moderate to severe decrease 15-29 G4 Severe decrease <15 G5 Kidney failure Ordering Provider: HE HENLEY Report Released Date/Time: Mar 23, 2024 10:36 AM Reporting Lab: [address] [phone] Performing Lab: [address] [address] [facility] HBSAB HEPATITIS B VIRUS SURFACE AB [PRESENCE] IN SERUM BY IMMUNOASSA Y Nonreact porfirio 03/23 Specimen Type: SERUM Comment: FOR HBSAB TESTING: Reactive HBsAb denotes immunity by vaccination or recovery from Hepatitis B infection. Individuals found to be reactive for both HBV Core AB total and HBsAb are immune due to prior natural infection. Individuals found to be nonreactive for HBV Core AB total and reactive for HBsAb (anti-HBs) are immune due to prior immunizatio n. Individuals found to be reactive for HBV Core AB total and nonreactive for HBsAb (anti-HBs) are considered to have a current Hepatitis B infection, either acute or chronic. Individuals found to be nonreactive for both HBV Core AB total and HBsAb are at risk for Hepatitis B infection (HBV) and HBV immunizatio n should be considered. FOR HBSAG TEST: Reactive HBsAG indicates acute or chronic Hepatitis B infection. Ordering Provider: HE HENLEY Report Released Date/Time: Mar 16, 2024 11:01 AM Reporting Lab: [address] [address] Performing Lab: [id number] [place] [address] HBSAG HEPATITIS B VIRUS SURFACE AG [PRESENCE] IN SERUM OR PLASMA BY IMMUNOASSA Y Nonreact porfirio 03/23 Specimen Type: SERUM Comment: FOR HBSAB TESTING: Reactive HBsAb denotes immunity by vaccination or recovery from Hepatitis B infection. Individuals found to be reactive for both HBV Core AB total and HBsAb are immune due to prior natural infection. Individuals found to be nonreactive for HBV Core AB total and reactive for HBsAb (anti-HBs) are immune due to prior immunizatio n. Individuals found to be reactive for HBV Core AB total and nonreactive for HBsAb (anti-HBs) are considered to have a current Hepatitis B infection, either acute or chronic. Individuals found to be nonreactive for both HBV Core AB total and HBsAb are at risk for Hepatitis B infection (HBV) and HBV immunizatio n should be considered. FOR HBSAG TEST: Reactive HBsAG indicates acute or chronic Hepatitis B infection. Ordering Provider: HE HENLEY Report Released Date/Time: Mar 16, 2024 11:01 AM Reporting Lab: [address] [address] Performing Lab: [address] [address] [facility] GLYCOHEM OGLOBIN HEMOGLOBIN A1C/HEMOGL OBIN.TOTAL IN BLOOD BY HPLC 8.2 4.4 - 6.4 03/23 H Specimen Type: BLOOD Comment: [place] guidelines for A1c interpretat ion: Glycemic control targets are based on Shared Decision Making between clinicians and patients. Criteria used to establish an A1c target recommendat ion can be found at https://www .[place].gov/sancho lityandpati entsafety/ and include the use of result accuracy and precision(C V) of the A1c tests clinicians utilize at their own sites of practice. Values obtained from A1C measurement s can vary. For typical A1C assays, a reported value of 7.0 could actually be between 6.72 and 7.28 if measured by a reference method. A reported value of 9.0 could actually be between 8.73 and 9.27. Ref: https://ngs p.org/CAPda ta.asp. The in-house LumaCyte-SeeMe D-100 analyzer has a historical CV <= 2%. Contact the laboratory for further performance characteris tics of this assay. Ordering Provider: HE HENLEY Report Released Date/Time: Mar 16, 2024 11:01 AM Reporting Lab: [address] [address] Performing Lab: [address] [address] [facility] PSA PROSTATE SPECIFIC AG [MASS/VOLU ME] IN SERUM OR PLASMA 1.538 ng/mL 0 - 3.999 03/23 Specimen Type: SERUM No comment entered. Ordering Provider: HE HENLEY Report Released Date/Time: Mar 16, 2024 11:01 AM Reporting Lab: [address] [address] Performing Lab: [address] [address] [facility] LIPID PROFILE CHOLESTERO L [MASS/VOLU ME] IN SERUM OR PLASMA 161 mg/dL 0 - 199 03/23 Specimen Type: PLASMA Comment: FOR HBSAB TESTING: Reactive HBsAb denotes immunity by vaccination or recovery from Hepatitis B infection. Individuals found to be reactive for both HBV Core AB total and HBsAb are immune due to prior natural infection. Individuals found to be nonreactive for HBV Core AB total and reactive for HBsAb (anti-HBs) are immune due to prior immunizatio n. Individuals found to be reactive for HBV Core AB total and nonreactive for HBsAb (anti-HBs) are considered to have a current Hepatitis B infection, either acute or chronic. Individuals found to be nonreactive for both HBV Core AB total and HBsAb are at risk for Hepatitis B infection (HBV) and HBV immunizatio n should be considered. FOR HBSAG TEST: Reactive HBsAG indicates acute or chronic Hepatitis B infection. Ordering Provider: HE HENLEY Report Released Date/Time: Mar 16, 2024 11:01 AM Reporting Lab: [address] [address] Performing Lab: [address] [address] [facility] LIPID PROFILE TRIGLYCERI DE [MASS/VOLU ME] IN SERUM OR PLASMA 156 mg/dL 0 - 149 03/23 H Specimen Type: PLASMA Comment: FOR HBSAB TESTING: Reactive HBsAb denotes immunity by vaccination or recovery from Hepatitis B infection. Individuals found to be reactive for both HBV Core AB total and HBsAb are immune due to prior natural infection. Individuals found to be nonreactive for HBV Core AB total and reactive for HBsAb (anti-HBs) are immune due to prior immunizatio n. Individuals found to be reactive for HBV Core AB total and nonreactive for HBsAb (anti-HBs) are considered to have a current Hepatitis B infection, either acute or chronic. Individuals found to be nonreactive for both HBV Core AB total and HBsAb are at risk for Hepatitis B infection (HBV) and HBV immunizatio n should be considered. FOR HBSAG TEST: Reactive HBsAG indicates acute or chronic Hepatitis B infection. Ordering Provider: HE HENLEY Report Released Date/Time: Mar 16, 2024 11:01 AM Reporting Lab: [address] [address] Performing Lab: [address] [address] [facility] LIPID PROFILE CHOLESTERO L IN HDL [MASS/VOLU ME] IN SERUM OR PLASMA 58 mg/dL 40 - 69 03/23 Specimen Type: PLASMA Comment: FOR HBSAB TESTING: Reactive HBsAb denotes immunity by vaccination or recovery from Hepatitis B infection. Individuals found to be reactive for both HBV Core AB total and HBsAb are immune due to prior natural infection. Individuals found to be nonreactive for HBV Core AB total and reactive for HBsAb (anti-HBs) are immune due to prior immunizatio n. Individuals found to be reactive for HBV Core AB total and nonreactive for HBsAb (anti-HBs) are considered to have a current Hepatitis B infection, either acute or chronic. Individuals found to be nonreactive for both HBV Core AB total and HBsAb are at risk for Hepatitis B infection (HBV) and HBV immunizatio n should be considered. FOR HBSAG TEST: Reactive HBsAG indicates acute or chronic Hepatitis B infection. Ordering Provider: HE HENLEY Report Released Date/Time: Mar 16, 2024 11:01 AM Reporting Lab: [facility] [address] [address] Performing Lab: [id number] [address] [facility] LIPID PROFILE CHOLESTERO L IN LDL [MASS/VOLU ME] IN SERUM OR PLASMA BY DIRECT ASSAY 100 mg/dL 0 - 100 03/23 Specimen Type: PLASMA Comment: FOR HBSAB TESTING: Reactive HBsAb denotes immunity by vaccination or recovery from Hepatitis B infection. Individuals found to be reactive for both HBV Core AB total and HBsAb are immune due to prior natural infection. Individuals found to be nonreactive for HBV Core AB total and reactive for HBsAb (anti-HBs) are immune due to prior immunizatio n. Individuals found to be reactive for HBV Core AB total and nonreactive for HBsAb (anti-HBs) are considered to have a current Hepatitis B infection, either acute or chronic. Individuals found to be nonreactive for both HBV Core AB total and HBsAb are at risk for Hepatitis B infection (HBV) and HBV immunizatio n should be considered. FOR HBSAG TEST: Reactive HBsAG indicates acute or chronic Hepatitis B infection. Ordering Provider: HE HENLEY Report Released Date/Time: Mar 16, 2024 11:01 AM Reporting Lab: [facility] [address] [address] Performing Lab: [facility] [address] [address] [facility] TSH THYROTROPI N [UNITS/VOL UME] IN SERUM OR PLASMA 1.8877 m[IU]/mL 0.3500 - 4.9400 03/23 Specimen Type: PLASMA Comment: Estimated Glomerular Filtration Rate (eGFR) calculated using the 2020 Chronic Kidney Disease-Epi demiology (CKD-EPI) Collaborati on creatinine equation; units of measure are mL/min/1.73 m2. Results are only valid for adults (>=18 years) whose serum creatinine is in a steady state. eGFR calculation s are not valid for patients with acute kidney injury and for patients on dialysis. Creatinine- based estimates of kidney function may also be inaccurate in patients with reduced creatinine generation due to decreased muscle mass (e.g., malnutritio n, severe hypoalbumin emia, sarcopenia, chronic neuromuscul ar disease, amputations , severe heart failure or liver disease) and in patients with increased creatinine generation due to increased muscle mass (e.g., muscle builders, anabolic steroids) or increased dietary intake. As drug clearance is proportiona l to total GFR and not GFR indexed to body surface area (BSA), in individuals with a BSA substantial ly different than 1.73 m2, drug dosing should be based on the reported eGFR value de-indexed from BSA by multiplying by the individual' s BSA and dividing by 1.73. CKD is diagnosed based on abnormaliti es of kidney structure or function, present for >3 months, with implication s for health and disease. CKD is classified and staged based on cause, eGFR and albuminuria (quantified as urine albumin to creatinine ratio). An eGFR >60 mL/min/1.73 m2 in the absence of increased urine albumin excretion or structural abnormaliti es does not represent CKD. eGFR CKD Interpretat ion (mL/min/1.7 3 m2) stage >=90 G1 Normal 60-89 G2 Mild decrease 45-59 G3A Mild to moderate decrease 30-44 G3B Moderate to severe decrease 15-29 G4 Severe decrease <15 G5 Kidney failure Ordering Provider: HE HENLEY Report Released Date/Time: Mar 16, 2024 11:01 AM Reporting Lab: [facility] [address] [facility] [address] Performing Lab: [facility] [address] [facility] [facility] [address] [facility] B12 VITAMIN COBALAMIN (VITAMIN B12) [MASS/VOLU ME] IN SERUM OR PLASMA 518 pg/mL 213 - 816 03/23 Specimen Type: PLASMA Comment: Estimated Glomerular Filtration Rate (eGFR) calculated using the 2020 Chronic Kidney Disease-Epi demiology (CKD-EPI) Collaborati on creatinine equation; units of measure are mL/min/1.73 m2. Results are only valid for adults (>=18 years) whose serum creatinine is in a steady state. eGFR calculation s are not valid for patients with acute kidney injury and for patients on dialysis. Creatinine- based estimates of kidney function may also be inaccurate in patients with reduced creatinine generation due to decreased muscle mass (e.g., malnutritio n, severe hypoalbumin emia, sarcopenia, chronic neuromuscul ar disease, amputations , severe heart failure or liver disease) and in patients with increased creatinine generation due to increased muscle mass (e.g., muscle builders, anabolic steroids) or increased dietary intake. As drug clearance is proportiona l to total GFR and not GFR indexed to body surface area (BSA), in individuals with a BSA substantial ly different than 1.73 m2, drug dosing should be based on the reported eGFR value de-indexed from BSA by multiplying by the individual' s BSA and dividing by 1.73. CKD is diagnosed based on abnormaliti es of kidney structure or function, present for >3 months, with implication s for health and disease. CKD is classified and staged based on cause, eGFR and albuminuria (quantified as urine albumin to creatinine ratio). An eGFR >60 mL/min/1.73 m2 in the absence of increased urine albumin excretion or structural abnormaliti es does not represent CKD. eGFR CKD Interpretat ion (mL/min/1.7 3 m2) stage >=90 G1 Normal 60-89 G2 Mild decrease 45-59 G3A Mild to moderate decrease 30-44 G3B Moderate to severe decrease 15-29 G4 Severe decrease <15 G5 Kidney failure Vitamin B12 test may not yield results when protein level of sample is too elevated. Ordering Provider: HE HENLEY Report Released Date/Time: Mar 16, 2024 11:01 AM Reporting Lab: YANG [address] [address] Performing Lab: YANG JAIME [address] [address] [facility] Vital Signs Combined list of inpatient and outpatient Vital Signs from Department of Defense and Veterans Affairs, ranging from 12 months to all on record, depending upon the facility. Vital Sign Value Date Comments Source SYSTOLIC BLOOD PRESSURE 125 06/26/2024 08:07:00 [facility] DIASTOLIC BLOOD PRESSURE 80 06/26/2024 08:07:00 [facility] WEIGHT 194.0 06/26/2024 08:07:00 [facility] BMI 26 kg/m2 06/26/2024 08:07:00 [facility] PAIN 6 06/26/2024 08:07:00 [facility] TEMPERATURE 97.6 06/26/2024 08:07:00 [facility]ate [facility] PULSE 79 06/26/2024 08:07:00 [facility] SYSTOLIC BLOOD PRESSURE 128 06/17/2024 08:20:00 [facility] DIASTOLIC BLOOD PRESSURE 75 06/17/2024 08:20:00 [place] [facility] PULSE OXIMETRY 97 06/17/2024 08:20:00 [place] [facility] WEIGHT 204.4 06/17/2024 08:20:00 [place] [facility] BMI 28 kg/m2 06/17/2024 08:20:00 [place] [facility] PAIN 0 06/17/2024 08:20:00 [place] [facility] TEMPERATURE 97.5 06/17/2024 08:20:00 [place] NGTON [facility] PULSE 70 06/17/2024 08:20:00 [place] [facility] WEIGHT 194 06/05/2024 09:43:36 [place] [facility] BMI 26 kg/m2 06/05/2024 09:43:36 [place] [facility] SYSTOLIC BLOOD PRESSURE 129 03/23/2024 10:05:00 [place] [facility] DIASTOLIC BLOOD PRESSURE 80 03/23/2024 10:05:00 [place] [facility] PULSE OXIMETRY 98 03/23/2024 10:05:00 [place] [facility] WEIGHT 202.8 03/23/2024 10:05:00 [place] [facility] BMI 28 kg/m2 03/23/2024 10:05:00 [place] [facility] PAIN 0 03/23/2024 10:05:00 [place] [facility] [facility] TEM[facility] 98.0 03/23/2024 10:05:00 [place] NGTON [facility] PULSE 67 03/23/2024 10:05:00 [place] [facility] SYSTOLIC BLOOD PRESSURE 129 03/16/2024 10:02:42 [place] [facility] DIASTOLIC BLOOD PRESSURE 73 03/16/2024 10:02:42 [place] [facility] PULSE OXIMETRY 97 03/16/2024 10:02:42 [place] [facility] WEIGHT 198 03/16/2024 10:02:42 [place] [facility] BMI 27 kg/m2 03/16/2024 10:02:42 V[place] MONTGOM[place] [facility] PAIN 0 03/16/2024 10:02:42 V[place]K [place] [facility] HEIGHT 72 03/16/2024 10:02:42 V[place]K [place] [facility] TEMPERATURE 98.1 03/16/2024 10:02:42 [facility] [facility] PULSE 68 03/16/2024 10:02:42 [facility] 03/16/2024 10:02:42 [place] [facility] Encounters Combined list of: 1) Encounters from Department of [facility] facilities going backup to the last 18 months, not all [place] inpatient encounters are included; 2) Encounters from the Department of [facility] facilities going backup to 280 months. Location Location Details Encounter Type Encounter Number Reason For Visit Attending Provider ADM Date DC Date Status Disposition Source [facility] Outpatient Encounter [id number] 01/22 [place] [facility] Outpatient Encounter [id number] 01/22 [place] [facility] Outpatient Encounter [id number] 01/24 [place] [facility] Outpatient Encounter [id number] ROB HENLEY K 01/25 [place] [facility] Outpatient Encounter [id number] 02/03 [place] [facility] Outpatient Encounter [id number] IVAN CRISTOBALTORI L 02/04 [place] [facility] HC PRO PHONE CALL 11-20 MIN [id number] Diagnos is: ICD-10- CM 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.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, unspeci fied PADILLALINGDEBBIE SE,TORI L 02/04 [place] [facility] Outpatient Encounter [id number] 02/06 [place] [facility] HC PRO PHONE CALL 21-30 MIN [id number] Diagnos is: ICD-10- CM Z71.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, unspeci butch LOVE SE,TORI L 02/07 [place] [facility] HC PRO PHONE CALL 5-10 MIN [id number] Diagnos is: ICD-10- CM Z71.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, unspeci butch LOVE SE,TORI L 02/07 [place] [facility] Outpatient Encounter [id number] 02/12 [place] [facility] OFFICE O/P NEW MOD 45-59 MIN [id number] Diagnos is: ICD-10- CM I25.89 Other forms of chronic ischemi c heart disease SANDRA MARCOS 02/13 [place] [facility] ELECTROCAR DIOGRAM COMPLETE [id number] Diagnos is: ICD-10- CM I10 José al (primar y) hyperte SHRUTI Garibay A 02/13 [place] Outpatient Encounter [id number] 02/13 [place] [facility] EYE EXAM ESTABLISH PATIENT [id number] Diagnos is: ICD-10- CM H35.313 0 Nexdtve age-rel ated mclr aida garcia al, stage unspeci KUSUM Garcia 02/19 [place] [facility] Outpatient Encounter [id number] 02/25 [place] [facility] HC PRO PHONE CALL 11-20 MIN [id number] Diagnos is: ICD-10- CM Z71.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, unspeci fied GARLINGHOU SE,TORI L 02/25 [place] [facility] Outpatient Encounter [id number] 02/25 [place] [facility] Outpatient Encounter [id number] 02/26 [place] [facility] Outpatient Encounter [id number] 03/12 [place] [facility] Outpatient Encounter [id number] 03/15 [place] [facility] Outpatient Encounter [id number] ROB HENLEY 03/26 [place] [facility] Outpatient Encounter [id number] 04/09 [place] [facility] OFFICE O/P EST MOD 30 MIN [id number] Diagnos is: ICD-10- CM M72.2 Plantar fascial fibroma Jay Levine ENJAMIN M 04/11 [place] [facility] OFFICE O/P EST MOD 30 MIN [id number] Diagnos is: ICD-10- CM D18.01 Hemangi andria of skin and subcuta neous tissue KARO MADISON ISTOPHER C 04/16 [place] Outpatient Encounter [id number] 04/24 [place] [facility] Outpatient Encounter [id number] 04/26 [place] [facility] Outpatient Encounter [id number] 04/30 [place] [facility] Outpatient Encounter [id number] 05/02 [place] [facility] Outpatient Encounter [id number] 05/06 [place] [facility] OFFICE O/P EST MOD 30 MIN [id number] Diagnos is: ICD-10- CM I42.9 Cardiom yopathy , unspeci fied MARCOSSANDRA 05/08 [place] [facility] OFFICE O/P EST MOD 30 MIN [id number] Diagnos is: ICD-10- CM E11.40 Type 2 diabete s mellitu s with diabeti c neuropa thy, unsp Jay ROMERO ENJAMIN M 05/09 [place] [facility] Outpatient Encounter [id number] GARLINGDEBBIE SE,TORI L 05/15 [place] [facility] MTMS BY PHARM ADDL 15 MIN [id number] Diagnos is: ICD-10- CM I42.9 Cardiom yopathy , unspeci fied DEJA,NITA BIBI E 05/24 [place] [facility] MTMS BY PHARM EST 15 MIN [id number] Diagnos is: ICD-10- CM I42.9 Cardiom yopathy , unspeci fied DEJA,NIAT BIBI E 06/03 [place] [facility] Outpatient Encounter [id number] 06/26 [place] [facility] MTMS BY PHARM EST 15 MIN [id number] Diagnos is: ICD-10- CM I42.9 Cardiom yopathy , unspeci fied DEJA,NITA BIBI E 06/30 [place] [facility] INTRM OPH EXAM EST PATIENT [id number] Diagnos is: ICD-10- CM H52.4 MYLENE Rubio 07/02 [place] [facility] INTRM OPH EXAM EST PATIENT [id number] Diagnos is: ICD-10- CM H35.30 Unspeci fied macular degener atkurt VIPUL CASTILLO 07/02 [place] [facility] MTMS BY PHARM ADDL 15 MIN [id number] Diagnos is: ICD-10- CM I10 Essenti al (primar y) hyperte nsion DEJA,NITA BIBI E 07/14 [place] [facility] INTRM OPH EXAM EST PATIENT [id number] Diagnos is: ICD-10- CM H40.9 Unspeci fied glaucKUSUM Simeon 07/15 [place] [facility] Outpatient Encounter [id number] 07/16 [place] [facility] Outpatient Encounter [id number] 08/12 [place] [facility] Outpatient Encounter [id number] 08/14 [place] [facility] OFFICE O/P EST MOD 30 MIN [id number] Diagnos is: ICD-10- CM E11.40 Type 2 diabete s mellitu s with diabeti c neuropa thy, unsp HENLEY,NAN CY K 08/14 [place] [facility] Outpatient Encounter [id number] 08/18 [place] [facility] HC PRO PHONE CALL 5-10 MIN [id number] Diagnos is: ICD-10- CM Z71.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, unspeci fied [facility],TORI L 08/18 [place] [facility] Outpatient Encounter [id number] GARLINGHOU SE,TORI L 08/21 [place] [facility] MTMS BY PHARM EST 15 MIN [id number] Diagnos is: ICD-10- CM I42.9 Cardiom yopathy , unspeci fied DEJANITA 08/21 [place] Outpatient Encounter [id number] 08/22 [place] [facility] MTMS BY PHARM EST 15 MIN [id number] Diagnos is: ICD-10- CM I42.9 Cardiom yopathy , unspeci fied DEJANITA E 09/04 [place] SELF-MGMT EDUC/TRAIN 2-4 [place] [id number] Diagnos is: ICD-10- CM E11.65 Type 2 diabete s mellitu s with hypergl ycemia ALAN ARANA 09/10 [place] [facility] TTE W/DOPPLER COMPLETE [id number] Diagnos is: ICD-10- CM I25.5 Ischemi c cardiom yopathy SANDRA MARCOS 09/24 [place] [facility] OFFICE O/P EST MOD 30 MIN [id number] Diagnos is: ICD-10- CM I42.9 Cardiom yopathy , unspeci fied PRITISANDRA 09/24 [place] [facility] ELECTROCAR DIOGRAM COMPLETE [id number] Diagnos is: ICD-10- CM I10 Essenti al (primar y) hyperte nsion SHRUTI FLORES IG A 10/09 [place] [facility] Outpatient Encounter [id number] 10/13 [place] [facility] OFFICE O/P EST MOD 30 MIN [id number] Diagnos is: ICD-10- CM I50.22 Chronic systoli c (conges tive) heart failure KWAME GUILLERMO 10/14 [place] [facility] Outpatient Encounter [id number] 10/14 [place] [facility] Outpatient Encounter [id number] 10/14 [place] [facility] Outpatient Encounter [id number] 10/14 [place] [facility] Outpatient Encounter [id number] 10/15 [place] [facility] MTMS BY PHARM EST 15 MIN [id number] Diagnos is: ICD-10- CM I42.9 Cardiom yopathy , unspeci fied DEJA,NITA BIBI E 10/21 [place] Outpatient Encounter [id number] 10/30 [place] [facility] ORTHC/PROS TC MGMT SBSQ ENC [id number] Diagnos is: ICD-10- CM E11.40 Type 2 diabete s mellitu s with diabeti c neuropa thy, unsp PACK,PAMEL A S 11/04 [place] [facility] OFFICE O/P EST MOD 30 MIN [id number] Diagnos is: ICD-10- CM E11.40 Type 2 diabete s mellitu s with diabeti c neuropa thy, unsp NICK,B ENJAMIN M 11/04 [place] [facility] MTMS BY PHARM EST 15 MIN [id number] Diagnos is: ICD-10- CM I42.9 Cardiom yopathy , unspeci fied DEJA,NITA BIBI E 11/10 [place] [facility] OFFICE O/P EST MOD 30 MIN [id number] Diagnos is: ICD-10- CM L57.0 Actinic keratos is ARIN NGUYEN P 11/19 [place] [facility] MTMS BY PHARM EST 15 MIN [id number] Diagnos is: ICD-10- CM I42.9 Cardiom yopathy , unspeci fied DEJA,NITA MTZ E 11/28 [place] [facility] Outpatient Encounter [id number] DENIZ RAMÍREZ 12/04 [place] [facility] DESTRUCT PREMALG LES 2-14 [id number] Diagnos is: ICD-10- CM L57.0 Actinic keratos is LEOBARDO VILLARREAL 12/11 [place] Outpatient Encounter [id number] 12/17 [place] [facility] MTMS BY PHARM EST 15 MIN [id number] Diagnos is: ICD-10- CM I42.9 Cardiom yopathy , unspeci fied DEJANITA E 12/26 [place] DIAB SHOE FOR DENSITY INSERT [id number] Diagnos is: ICD-10- CM E11.40 Type 2 diabete s mellitu s with diabeti c neuropa thy, unsp AVRIL,CAN DACE L 12/31 [place] [facility] INTRM OPH EXAM EST PATIENT [id number] Diagnos is: ICD-10- CM H40.003 Preglau coma, unspeci fied, bilater KUSUM Stephen 01/13 [place] [facility] Outpatient Encounter [id number] 01/13 [place] [facility] MTMS BY PHARM EST 15 MIN [id number] Diagnos is: ICD-10- CM I42.9 Cardiom yopathy , unspeci fied EDJANITA 01/16 [place] [facility] Outpatient Encounter [id number] 01/19 [place] [facility] CARDIOPULM EXERCISE TESTING [id number] Diagnos is: ICD-10- CM I10 Essenti al (primar y) hyperte NAZIA Hightower J 01/26 [place] [facility] OFFICE O/P EST MOD 30 MIN [id number] Diagnos is: ICD-10- CM I50.22 Chronic systoli c (conges tive) heart failure MARCOSSANDRA 01/28 [place] [facility] OFFICE O/P EST MOD 30 MIN [id number] Diagnos is: ICD-10- CM H35.313 2 Nexdtve age-rel ated aida moss al, interme d dry stage PRUDENCE,ER IC B 02/06 [place] [facility] Outpatient Encounter [id number] 02/18 [place] [facility] OFFICE O/P EST HI 40 MIN [id number] [id number] 70 Diagnos is: ICD-10- CM I25.5 Ischemi c cardiom yopathy HYUN MERINO IK 02/20 [place] [facility] Outpatient Encounter [id number] 02/23 [place] [facility] ELECTROCAR DIOGRAM COMPLETE [id number] Diagnos is: ICD-10- CM I10 Essenti al (primar y) hyperte kamillakurt SHRUTI FLORES IG A 03/05 [place] [facility] Outpatient Encounter [id number] 03/06 [place] [facility] Insertion of Defibrilla tor Lead into R Atrium, Perc Approach 43941-4.59 [id number] Admit Reason: icm 03/10 [place] Outpatient Encounter [id number] 03/10 [place] [facility] [place] [facility] OFFICE O/P EST MOD 30 MIN [id number] [id number] Diagnos is: ICD-10- CM I25.5 Ischemi c cardiom yopathy AIORINSHAM IK 03/10 [place] [facility] Outpatient Encounter [id number] 03/10 [place] [facility] ELECTROCAR DIOGRAM COMPLETE [id number] Diagnos is: ICD-10- CM Z13.6 Encount er for screeni ng for cardiov ascular disorde rs ALISON MENDOZA 03/10 [place] [facility] Inpatient Encounter [id number] 03/10 [place] [facility] [place] [facility] Inpatient Encounter [id number] 03/10 [place] [facility] [place] [facility] Inpatient Encounter [id number] 03/10 [place] [facility] [place] [facility] Inpatient Encounter [id number] 03/11 [place] [facility] [place] [facility] Inpatient Encounter [id number] 03/11 [place] [facility] [place] [facility] DSCHRG MED/CURREN T MED MERGE [id number] Diagnos is: ICD-10- CM Z51.81 Encount er for therape utic drug level monitor KAMILLA Ordaz Maximo 03/11 [place] [facility] Inpatient Encounter [id number] 03/11 [place] [facility] Inpatient Encounter [id number] [id number] 03/11 [place] [facility] Outpatient Encounter [id number] 81 03/13 [place] [facility] Outpatient Encounter [id number] 03/13 [place] [facility] HC PRO PHONE CALL 5-10 MIN [id number] Diagnos is: ICD-10- CM Z71.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, unspeci fied GARLINGDEBBIE SE,TORI L 03/13 [place] [facility] OFFICE O/P EST MOD 30 MIN [id number] Diagnos is: ICD-10- CM I25.10 Athscl heart disease of [place] coronar y artery w/o ang pctrs HENLEY,ROB CY K 03/16 [place] [facility] OFFICE O/P EST MOD 30 MIN [id number] Diagnos is: ICD-10- CM Z48.812 Encntr for surgica l aftcr followi ng surgery on the circ sys NAVA,JAZMINE KY L 03/23 [place] [facility] HC PRO PHONE CALL 5-10 MIN [id number] Diagnos is: ICD-10- CM Z71.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, unspeci fied TORI LOVE SE L 03/24 [place] [facility] Outpatient Encounter [id number] 03/26 [place] [facility] Outpatient Encounter [id number] [id number] 03/27 [place] [facility] TTE W/DOPPLER COMPLETE [id number] [id number] Diagnos is: ICD-10- CM I25.5 Ischemi c cardiom yopathy CHRISTY GEORGE RA J 04/08 [place] [facility] MTMS BY PHARM EST 15 MIN [id number] Diagnos is: ICD-10- CM I42.9 Cardiom yopathy , unspeci fied NITA SHORT E 04/09 [place] En[facility] [id number] 04/15 [place] [facility] GROUP [facility] EDUCATION [id number] [id number] Diagnos is: ICD-10- CM E11.65 Type 2 diabete s mellitu s with hypergl ycemia ALAN ARANA 04/16 [place] [facility] IMMUNIZATI ON ADMIN EACH ADD [id number] Diagnos is: ICD-10- CM Z23 Encount er for immuniz ation DANIELJOHAN ROSALINE L 04/16 [place] [facility] Outpatient Encounter [id number] 05/05 [facility] OFFICE O/P EST MOD 30 MIN [id number] Diagnos is: ICD-10- CM E10.42 Type 1 diabete s mellitu s with diabeti c polyneu ropathy Jay ROMERO ENJAMIN M 05/05 [place] [address] ASSMT&MGMT NQHP 5-10 [id number] [id number] Diagnos is: ICD-10- CM 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 ing VERONA CR L E 05/11 [place] [facility] Outpatient Encounter [id number] 05/20 [place] [facility] MTMS BY PHARM EST 15 MIN [id number] [id number] 20 Diagnos is: ICD-10- CM I42.9 Cardiom yopathy , unspeci fied DEJA,NITA KAH E 05/28 [place] [facility] EDU&TRN PT SELF-MGMT NQHP 1 [id number] Diagnos is: ICD-10- CM E11.65 Type 2 diabete s mellitu s with hypergl ycemia ARTURO ANDREWS B 06/05 [place] [facility] INTERROG DEVICE EVAL HEART [id number] [id number] Diagnos is: ICD-10- CM I25.5 Ischemi c cardiom yopathy KOKI,KWAME D H 06/17 [place] [address] ASSMT&MGMT NQHP 5-10 [id number] Diagnos is: ICD-10- CM M50.30 Other cervica l disc degener ation, unsp cervica l region [facility] SE,TORI L 06/17 [place] [address] ASSMT&MGMT NQHP 5-10 [id number] [id number] Diagnos is: ICD-10- CM Z71.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, unspeci fied [facility] SE,TORI L 06/18 [place] [facility] Outpatient Encounter [id number] 06/19 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 subcuta neous tissue KARO MADISON ISTOPHER C 06/25 [place] [facility] OFFICE O/P NEW LOW 30 MIN [id number] [id number] Diagnos is: ICD-10- CM M48.02 Spinal stenosi s, cervica l region LUPILLO SALGADO A 06/26 [place] [facility] Outpatient Encounter [id number] 06/29 [place] [facility] MTMS BY PHARM EST 15 MIN [id number] [id number] Diagnos is: ICD-10- CM I42.9 Cardiom yopathy , unspeci fied DEJANITACatracho MTZ E 06/29 [place] [facility] PH1 ASSMT&MGMT NQHP 5-10 [id number] Diagnos is: ICD-10- CM 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 MTMS BY PHARM EST 15 MIN [id number] [id number] Diagnos is: ICD-10- CM I42.9 Cardiom yopathy , unspeci fied DEJA,NITA KAH E 07/09 [place] [facility] Social History Combined list of available smoking, tobacco, and other social history from [facility] and [facility] facilities. Social History Type Response Date Comment Sourc e Tobacco smoking status [place] [facility] NEVER USED CIGARETTES 03/16/2024 [place] [facility] History of tobacco use [employer] SSDTO[employer] NEVER USED OTHER TYPE 03/16/2024 [place] [facility] History of tobacco use [employer] SSDTOBAC[employer] NEVER USED 08/15/2023 [facility] History of tobacco use [employer] SSD[employer] NEVER USED 06/11/2022 [facility] History of tobacco use [employer] SSDTOBAC[employer] QUIT 15 YRS OR MORE 05/11/2021 [place] [facility] History of tobacco use [place]-TOBACCO FORMER USER 04/04/2020 [facility] History of tobacco use WI-TOBACCO FORMER USER 03/18/2019 [facility] History of tobacco use [place]-TOBACCO QUIT 15 YRS OR MORE 07/24/2018 [facility] History of tobacco use QUIT TOBACCO 15 OR MORE YRS 11/19/2017 [facility] History of tobacco use LIFETIME NON-USER OF TOBACCO 12/18/2016 [facility] History of tobacco use QUIT TOBACCO 15 OR MORE YRS 12/13/2015 [facility] History of tobacco use QUIT TOBACCO >7 YEARS AGO 02/08/2011 [facility] History of tobacco use HFZ TOBACCO DOES NOT USE 06/12/2010 [facility] History of tobacco use [facility]Z TOBACCO DOES NOT USE 04/22/2009 [facility] History of tobacco use [facility]Z TOBACCO DOES NOT USE 06/24/2008 [facility] History of tobacco use [facility] TOBACCO DOES NOT USE 06/13/2007 [facility] History of tobacco use [facility]Z TOBACCO DOES NOT USE 07/24/2006 [facility] History of tobacco use Z NON-TOBACCO USE > 7YR 06/01/20051994 [facility] Plan of Care List of future care activities from Department [facility] facilities. Additional future care activities may be listed in the Assessment and Plan section. Date/Time Care Activity Care Activity Detail Facili ty 07/15/2024 AMBULATORY - NONE AMBULATORY - NONE [place]
--- OUTSIDE RECORDS SUMMARY | 2024-07-14 06:50 | XMS_ITS | Encounter Summary ---
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 2017 SELEC T RETIR ED May 16, 2018 [facility] [id number] [phone] WIGGLESWO RTH,STEWA RT PATIENT [facility] 2017 [employer] A Apr 01, 2017 DODA [id number] WIGGLESWO RTH,STEWA RT PATIENT [facility] 2024 PRIME RETIR ED Apr 01, 2024 [employer] [id number] [phone] JAZMINE RTH,AMY RT PATIENT Selected Encounter This section includes the information on record at [place] for the Encounter. Date/Time Encounter Type Encounter Description Reason Pro vider Source Mar 06, 2024 09:46 AM Outpatient Encounter ADMIN PAT ACTIVTIES (MASNONCT) IHE Encounter Template Text not used by [place] Plan of Treatment: Future Appointments (+ 6 months) and Future Tests (+/- 45 days) The Plan of Treatment section includes future care activities for the patient from all [place] treatmentfacilities. This section includes future appointments and future orders which are active, pending or scheduled. Future Appointments This section includes appointments that were scheduled to occur 6 months from the date of the Encounter, up to a maximum of 20 appointments. The data comes from all [place] treatment facilities. Appointment Date/Time Appointment Type Appointme nt Facility Name Mar 16, 2024 10:30 AM AM[place]ORY - NONE [place] [facility]3] Mar 23, 2024 10:00 AM AMBULATORY - MEDICINE [place] Apr 08, 2024 08:15 AM [facility] [facility] 16, 2024 01:30 [...] 08:00 AM AMBULATORY - MEDICINE [place] NGTON [facility]3] Jun 17, 2024 09:00 AM AM[place]ULATORY - NONE [place] [facility] Jun 25, 2024 08:00 AM AMBULATORY - MEDICINE [place] NGTON [facility]3] Jun 26, 2024 08:20 AM AMBULATORY - SURGERY [place] G[place] [facility]3] Jun 29, 2024 01:30 PM [place]UL[place]ORY - NONE [place] [facility]3] Jul 15, 2024 09:00 AM AM[place]ULATORY - NONE [place] [facility] Jul 27, 2024 08:00 AM AMBULATORY - SURGERY [place] Jul 29, 2024 01:00 PM AMBULATORY - MEDICINE [place] HAMM [facility]3] August 03, 2024 07:00 AM AMBULATORY - NONE [place] Nguyễn [facility]3] Lab Results: +/- 30 days of the encounter This section includes the Chemistry and Hematology Lab Results on record with [place] for the patient. Radiology Reports and Pathology Reports are provided separately, in subsequent sections. Lab Results This section contains the Chemistry/Hematology Results that were resulted 30 days before or 30 daysafter the date of the Encounter. Date/Time Source Result Type Result - Unit Interpretation Reference Range Specimen Type Comment Mar 23, 2024 09:13 AM [facility] N HBSAB SERUM Specimen Type: SERUM [...] chronic Hepatitis B infection. Ordering Provider: SHRUTHI CEJA Report Released Date/Time: Mar 16, 2024 11:01 AM Reporting Lab: [address] [address] Performing Lab: [address] [address] HBSAB Nonreactive Nonreactive Mar 23, 2024 09:13 AM [facility] HBSAG S JOSE Specimen Type: SERUM [...] chronic Hepatitis B infection. Ordering Provider: SHRUTHI CEJA Report Released Date/Time: Mar 16, 2024 11:01 AM Reporting Lab: [address] [address] Performing Lab: [address] [address] HBSAG Nonreactive Nonreactive Mar 23, 2024 09:13 AM [facility] GLYCOHEMOGLOBIN BLOOD Specimen Type: BLOOD Comment: [facility] guidelines for A1c interpretation: Glycemic control targets are based on Shared Decision Making between clinicians and patients. Criteria used to establish an A1c target recommendation can be found at https://www.fl.gov/qualityandpatientsafety/ and include the use of result accuracy [...] 8.73 and 9.27. Ref: https://ngsp.org/CAPdata.asp. The in-house [employer] D-100 analyzer has a historical CV <= 2%. Contact the laboratory for further performance characteristics of this assay. Ordering Provider: SHRUTHI CEJA Report Released Date/Time: Mar 16, 2024 11:01 AM Reporting Lab: [address] [address] Performing Lab: [address] [address] GLYCOHEMOGLOBIN 8.2 H 4.4-6.4 Mar 23, 2024 09:13 AM [facility] PSA S JOSE Specimen Type: SERUM No comment entered. Ordering Provider: SHRUTHI CEJA Report Released Date/Time: Mar 16, 2024 11:01 AM Reporting Lab: [address] [address] Performing Lab: [address] [address] PSA 1.538 ng/mL 0-3.999 Mar 23, 2024 09:13 AM [facility] LIPID PROFILE PLASMA Specimen Type: PLASMA [...] chronic Hepatitis B infection. Ordering Provider: SHRUTHI CEJA Report Released Date/Time: Mar 16, 2024 11:01 AM Reporting Lab: [address] [address] Performing Lab: [address] [address] CHOLESTEROL 161 mg/dL 0-199 TRIGLYCERIDE 156 mg/dL H 0-149 HDL CHOLESTEROL 58 mg/dL 40-69 DIRECT LDL CHOL. 100 mg/dL 0-100 Mar 23, 2024 09:13 AM [facility] PANEL 5 PLASMA Specimen Type: PLASMA [...] chronic Hepatitis B infection. Ordering Provider: SHRUTHI CEJA Report Released Date/Time: Mar 16, 2024 11:01 AM Reporting Lab: [facility] [address] [place] [address] Performing Lab: [address] [address] CREATININE 1.34 mg/dL H 0.72-1.25 UREA NITROGEN [...] (CKD-EPI) 59 Mar 23, 2024 09:13 AM [facility] B12 VITAMIN PLASMA Specimen Type: [...] sample is too elevated. Ordering Provider: SHRUTHI CEJA Report Released Date/Time: Mar 16, 2024 11:01 AM Reporting Lab: [address] [address] Performing Lab: [address] [address] B12 VITAMIN 518 pg/mL 213-816 Mar 23, 2024 09:13 AM [facility] TSH PLASMA Specimen Type: PLASM A [...] <15 G5 Kidney failure Ordering Provider: SHRUTHI CEJA Report Released Date/Time: Mar 16, 2024 11:01 AM Reporting Lab: [place] [phone] Performing Lab: [place] [phone] TSH 1.8877 m[IU]/mL 0.3500-4.9400 Mar 23, 2024 09:13 AM [facility]-[place] VITAMIN D SERUM Specime n Type: SERUM Comment: The National Institutes of Health (NIH) recommendations state: <12 ng/mL - Deficient 20 - 50 ng/mL - Optimal Levels - adequate for most people. >50 ng/mL - Increased risk of hypercalciuria/other health problems - clinical correlation is required. These reference ranges represent clinical decision values rather than population-based reference values. Ordering Provider: SHRUTHI CEJA Report Released Date/Time: Mar 16, 2024 11:01 AM Reporting Lab: [address] [address] Performing Lab: [place] [phone] 25-OH VITAMIN D 51.2 ng/mL H 20.0-50.0 Mar 23, 2024 09:13 AM [facility] CBC/PLT BLOOD Specimen Type: BLOOD No comment entered. Ordering Provider: SHRUTHI CEJA Report Released Date/Time: Mar 16, 2024 11:01 AM Reporting Lab: [address] [address] Performing Lab: [place] [phone] WBC 6.5 10*3/uL 5.0-10.0 RBC 5.22 10*6/uL 4.6-6.2 HGB 14.3 g/dL 14.0-18.0 HCT 45.6 42.0-52.0 MCV 87.4 fL 80.0-94.0 MCH 27.4 pg 27.0-31.0 MCHC 31.4 g/dL L 32.0-36.0 PLT 180 10*3/uL 150-450 MPV 9.5 fL 9.0-13.1 RDW 15.6 11.0-16.0 NRBC 0.0 0.0-0.0 Mar 11, 2024 06:10 AM [facility] GLUCOSE-HAND MONITOR CAPILLARY Specime n Type: CAPILLARY Comment: Test performed by: [id number] Meter #: [id number] Ordering Provider: FELIBERTO MERINO Report Released Date/Time: Mar 11, 2024 06:27 AM Reporting Lab: [address] [address] Performing Lab: [address] [address] GLUCOSE-HAND MONITOR 170 mg/dL H Mar 10, 2024 08:59 PM [facility] GLUCOSE-HAND MONITOR CAPILLARY Specime n Type: CAPILLARY Comment: Test performed by: [id number] Meter #: [id number] Ordering Provider: FELIBERTO MERINO Report Released Date/Time: Mar 10, 2024 09:52 PM Reporting Lab: [address] [address] Performing Lab: [place] [phone] GLUCOSE-HAND MONITOR 260 mg/dL H Mar 10, 2024 05:47 PM [facility] GLUCOSE-HAND MONITOR CAPILLARY Specime n Type: CAPILLARY Comment: Test performed by: [id number] Meter #: [id number] Ordering Provider: FELIBERTO MERINO Report Released Date/Time: Mar 10, 2024 11:25 PM Reporting Lab: [address] [address] Performing Lab: [address] [address] GLUCOSE-HAND MONITOR 299 mg/dL H 71-99 Mar 10, 2024 10:36 AM [facility] MRSA SURVL NARES DNA NARES [...] Mar 05, 2024 10:58 AM Reporting Lab: [address] [address] Performing Lab: [address] [address] MRSA SURVL NARES DNA Negative Negative Mar 10, 2024 08:52 AM [facility] PANEL 1 PLASMA Specimen Type: [...] Mar 05, 2024 10:58 AM Reporting Lab: [address] [address] Performing Lab: [address] [address] CREATININE 1.36 mg/dL H 0.72-1.25 UREA NITROGEN 28 mg/dL H 9-25 GLUCOSE 137 mg/dL H 74-100 SODIUM 136 mmol/L 136-145 POTASSIUM 4.5 mmol/L 3.5-5.1 CHLORIDE 104 mmol/L 98-107 CO2 28 mmol/L 22-29 CALCIUM 10.0 mg/dL 8.4-10.2 ANION GAP 4 meq/L 3-19 eGFR (CKD-EPI) 58 Mar 10, 2024 08:51 AM [facility] CBC/PLT BLOOD Specimen Type: BLOOD No comment entered. Ordering Provider: FELIBERTO MERINO Report Released Date/Time: Mar 05, 2024 10:58 AM Reporting Lab: [address] [address] Performing Lab: [address] [address] WBC 5.6 10*3/uL 5.0-10.0 RBC 4.87 10*6/uL [...] the Encounter. The data comes from all [place] treatment facilities. Date/Time Radiology Report Provider Source Mar 11, 2024 04:50 AM CHEST SINGLE(1) EW: KATE CARTER [id number] -[id number] M Exm Date: MAR 11, 2024@04:50 Req Phys: DOV TELLES Loc: 5-OBM/TEL/03-11-2024@08:53 Img Loc: CDD RADIOLOGY Service: MEDICAL SERVICE [place] [id number] (Case [id number] COMPLETE)CHEST SINGLE(1) VIEW (RAD Detailed) CPT:11382 Proc Modifiers : PORTABLE EXAM Reason for Study: POST EPS PROCEDURE Clinical History: Rule out PTX s/p BiV ICD Report Status: Verified Date Reported: MAR 11, 2024 Date Verified: MAR 11, 2024 Fun House Operator E-Sig: Report: EXAMINATION: SINGLE VIEW CHEST [...] Interpreting Staff: CHIN CASTILLO, Radiologist Verified by selector packer for CHIN CASTILLO /[facility] Mar 10, 2024 07:46 AM ORACLE DBA - FLUORO UP TO 1 HOUR: KATE CARTER [id number] -[id number] M Exm Date: MAR 10, 2024@07:46 Req Phys: FELIBERTO MERINO Pat Loc: CARDIAC CATH/OPT/CDD (Req'g Lo Img Loc: ANGIO/NEURO/INTERVENTIONAL Service: Unknown [place] [id number] (Case [id number] COMPLETE) ORACLE DBA - FLUORO UP TO 1 HOUR (ANI Detailed) CPT:79598 Reason for Study: BI-V-ICD Clinical History: BI-V-ICD Report Status: Verified Date Reported: Date Verified: MAR 10, 2024 Fun House Operator E-Sig: Report: See Impression Impression: Senior Radiation Therapist imaging capture for storage. Please see [facility] Senior Radiation Therapist consults and notes in CPRS for final reporting and exam documentation. Primary Diagnostic Code: Primary Interpreting Staff: PHYS OTHER THAN [facility], Staff Physician Verified by selector packer for PHYS OTHER THAN [facility] /[facility] RADIOLOGIST,PHYS OTHER THAN [facility] Encounter Notes: All associated encounter notes This section contains the clinical notes associated to the Encounter. Date/Time Encounter Note(s) Provider Source Mar 06, 2024 09:46 AM PHARMACY TELEPHONE ENCOUNTER NOTE: LOCAL TITLE: PHARMACY TELEPHONE CARE NOTE STANDARD TITLE: PHARMACY TELEPHONE ENCOUNTER NOTE DATE OF NOTE: MAR 06, 2024@09:46 ENTRY DATE: MAR 06, 2024@09:46:51 AUTHOR: CHRISTEL NULL COSIGNER: URGENCY: STATUS: COMPLETED 1. Name of caller: 2. Phone #: 3. Specialty Clinic/Primary Care Team: Progress Note Date Title Author (and Author's Title) AUGUST 15, 2023@08:16 PC PROGRESS NOTE SHRUTHI CEJA (PRIMARY CARE ST 4. Medication: NEEDLE,PEN 32G,4MM 5. Last fill date: 01.10.24 Provider: 6. The caller requests prescription: Mailed 7. View Alert to: /amando/ Christel Null CPhT Pharmacy Optics Technical Officer Signed: 03/06/2024 09:47 Receipt Acknowledged By: 03/06/2024 10:34 /es/ Shruthi Ceja MD Primary Care Physician CHRISTEL NULL-CDD [facility]
--- OUTSIDE RECORDS SUMMARY | 2024-07-14 06:50 | XMS_ITS ---
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 Name Role Phone JOSUE JOOENEDINA [...] PART B May 30, 2024 PART B [id number] WIGGLESWO RTH,STEWA RT PATIENT MEDICARE (WNR) MEDICARE (M) PART A May 30, 2024 PART A [id number] WIGGLESWO RTH,STEWA RT PATIENT [facility] 2017 SELEC T RETIR ED May 16, 2018 [facility] [id number] WIGGLESWO RTH,STEWA RT PATIENT [facility] 2017 [employer]IME [employer] A Apr 01, 2017 DOD [id number] WIGGLESWO RTH,STEWA RT PATIENT [facility] 2024 PRIME RETIR ED Apr 01, 2024 PRIME RETIRED [id number] [phone] WIGGLESWO RTHAMY RT PATIENT Selected Encounter This section includes the information on record at [place] for the Encounter. Date/Time Encounter Type Encounter Description Reason Provider Source Mar 10, 2024 07:15 AM Insertion of Defibrillator Lead into R [facility], Perc Approach HOSPITALIZATION ICD-10-CM E78.5 Hyperlipidemia, unspecified IHE Encounter Template Text not used by [place] Assessments - Encounter Diagnoses This section includes the primary and secondary diagnoses documented for the Encounter. Date/Time Primary/Secondary Diagnosis Diagnosis Name Provider Source Mar 11, 2024 10:09 AM Diagnosis for Length of Stay Ischemic cardiomyopathy [facility] Mar 11, 2024 10:09 AM SECONDARY Heart failure, unspecified [facility] Mar 11, 2024 10:09 AM SECONDARY Hyperlipidemia, unspecified [facility] Mar 11, 2024 10:09 AM SECONDARY Hypertensive heart disease with heart failure [facility] Mar 11, 2024 10:09 AM SECONDARY Left bundle-branch block, unspecified [facility] Plan of Treatment: Future Appointments (+ 6 months) and Future Tests (+/- 45 days) The Plan of Treatment section includes future care activities for the patient [facility] This section includes future appointments and future orders which are active, pending or scheduled. Future Appointments This section includes appointments that were scheduled to occur 6 months from the date of the Encounter, up to a maximum of 20 appointments. The data comes from all [place] treatment facilities. Appointment Date/Time Appointment Type Appointme nt Facility Name Mar 16, 2024 10:30 AM AM[place]ATORY - NONE [place] [facility] Mar 23, 2024 10:00 AM AMBULATORY - [place]ICINE [place] [facility] Apr 08, 2024 08:15 AM AMBULATORY - MEDICINE [place] [facility]GT[facility] Apr 16, 2024 01:30 PM AMBULATORY - [...] 2024 08:00 AM [facility] Jun 17, 2024 09:00 AM [facility]ORY - NONE [place] [facility] Jun 25, 2024 08:00 AM [facility] Jun 26, 2024 08:20 AM AMBULATORY - SURGERY [place] [facility] Jun 29, 2024 01:30 PM AMBULATORY - NONE [place] [facility] Jul 15, 2024 09:00 AM AMBULATORY - NONE [place] [facility] Jul 27, 2024 08:00 AM AMBULATORY - SURGERY [place] [facility] Jul 29, 2024 01:00 PM [facility] [place] [facility] August 03, 2024 07:00 AM [facility] Lab Results: +/- 30 days of the encounter This section includes the Chemistry and Hematology Lab Results on record with [place] for the patient. Radiology Reports and Pathology Reports are provided separately, in subsequent sections. Lab Results This section contains the Chemistry/Hematology Results that were resulted 30 days before or 30 daysafter the date of the Encounter. Date/Time Source Result Type Result - Unit Interpretation Reference Range Specimen Type Comment Mar 23, 2024 09:13 AM [facility] HBSAB SERUM Specimen Type: SERUM Comment: FOR [...] Mar 16, 2024 11:01 AM Reporting Lab: [id number] [address] Performing Lab: [address] [address] HBSAB Nonreactive Nonreactive Mar 23, 2024 09:13 [...] 16, 2024 11:01 AM Reporting Lab: [address] [address] Performing Lab: [address] [address] HBSAG Nonreactive Nonreactive Mar 23, 2024 09:13 AM [facility] GLYCOHEMOGLOBIN BLOOD Specimen Type: BLOOD Comment: [facility] guidelines for A1c interpretation: Glycemic control [...] 8.73 and 9.27. Ref: https://ngsp.org/CAPdata.asp. The in-house [employer]-Hip[employer]o D-100 analyzer has a historical CV <= 2%. Contact the laboratory for further performance characteristics of this assay. Ordering Provider: MARTHA HENLEY Report Released Date/Time: Mar 16, 2024 11:01 AM Reporting Lab: [address] [address] Performing Lab: [address] [address] GLYCOHEMOGLOBIN 8.2 H 4.4-6.4 Mar 23, 2024 09:13 AM [facility] PSA S JOSE Specimen Type: SERUM No comment entered. Ordering Provider: MARTHA HENLEY Report Released Date/Time: Mar 16, 2024 11:01 AM Reporting Lab: [address] [address] Performing Lab: [address] [address] PSA 1.538 ng/mL 0-3.999 Mar 23, 2024 [...] 16, 2024 11:01 AM Reporting Lab: [address] [address] Performing Lab: [address] [address] CHOLESTEROL 161 mg/dL 0-199 TRIGLYCERIDE 156 mg/dL [...] 16, 2024 11:01 AM Reporting Lab: [address] [address] Performing Lab: [address] [address] TSH 1.8877 m[IU]/mL 0.3500-4.9400 Mar 23, 2024 [...] 16, 2024 11:01 AM Reporting Lab: [address] [address] Performing Lab: [address] [address] B12 VITAMIN 518 pg/mL 213-816 Mar 23, [...] 16, 2024 11:01 AM Reporting Lab: [address] [address] Performing Lab: [place] [id number] 25-OH VITAMIN D 51.2 ng/mL H 20.0-50.0 Mar 23, 2024 09:13 AM [facility] CBC/PLT BLOOD Specimen Type: BLOOD No comment entered. Ordering Provider: MARTHA HENLEY Report Released Date/Time: Mar 16, 2024 11:01 AM Reporting Lab: [address] [address] Performing Lab: [address] [address] WBC 6.5 10*3/uL 5.0-10.0 RBC 5.22 10*6/uL 4.6-6.2 HGB 14.3 g/dL 14.0-18.0 HCT 45.6 42.0-52.0 MCV 87.4 fL 80.0-94.0 MCH 27.4 pg 27.0-31.0 MCHC 31.4 g/dL L 32.0-36.0 PLT 180 10*3/uL 150-450 MPV 9.5 fL 9.0-13.1 RDW 15.6 11.0-16.0 NRBC 0.0 0.0-0.0 Mar 23, 2024 09:13 AM [facility] [...] 16, 2024 11:01 AM Reporting Lab: [address] [address] Performing Lab: [address] [address] CREATININE 1.34 mg/dL H 0.72-1.25 UREA NITROGEN [...] (CKD-EPI) 59 Mar 11, 2024 06:10 AM [facility] GLUCOSE-HAND MONITOR CAPILLARY Specime n Type: CAPILLARY Comment: Test performed by: [id number] Meter #: [id number] Ordering Provider: FELIBERTO MERINO Report Released Date/Time: Mar 11, 2024 06:27 AM Reporting Lab: [address] [address] Performing Lab: [address] [address] GLUCOSE-HAND MONITOR 170 mg/dL H 71-99 Mar 10, 2024 08:59 PM [facility] GLUCOSE-HAND MONITOR CAPILLARY Specime n Type: CAPILLARY Comment: Test performed by: [id number] Meter #: [id number] Ordering Provider: FELIBERTO MERINO Report Released Date/Time: Mar 10, 2024 09:52 PM Reporting Lab: [address] [address] Performing Lab: [address] [address] GLUCOSE-HAND MONITOR 260 mg/dL H Mar 10, 2024 05:47 PM [facility] GLUCOSE-HAND MONITOR CAPILLARY Specime n Type: CAPILLARY Comment: Test performed by: [id number] Meter #: [id number] Ordering Provider: FELIBERTO MERINO Report Released Date/Time: Mar 10, 2024 11:25 PM Reporting Lab: [address] [address] Performing Lab: [address] [address] GLUCOSE-HAND MONITOR 299 mg/dL H Mar 10, 2024 10:36 AM [facility] MRSA SURVL NARES DNA NARES Specime [...] 05, 2024 10:58 AM Reporting Lab: [address] [address] Performing Lab: [address] [address] MRSA SURVL NARES DNA Negative Negative Mar 10, 2024 08:52 AM [facility] PANEL 1 PLASMA Specimen Type: PLASM [...] 05, 2024 10:58 AM Reporting Lab: [address] [address] Performing Lab: [address] [address] CREATININE 1.36 mg/dL H 0.72-1.25 UREA NITROGEN 28 mg/dL H 9-25 GLUCOSE 137 mg/dL H 74-100 SODIUM 136 mmol/L 136-145 POTASSIUM 4.5 mmol/L 3.5-5.1 CHLORIDE 104 mmol/L 98-107 CO2 28 mmol/L 22-29 CALCIUM 10.0 mg/dL 8.4-10.2 ANION GAP 4 meq/L 3-19 eGFR (CKD-EPI) 58 Mar 10, 2024 08:51 AM [facility] CBC/PLT BLOOD Specimen Type: BLOOD No comment entered. Ordering Provider: FELIBERTO MERINO Report Released Date/Time: Mar 05, 2024 10:58 AM Reporting Lab: [address] [address] Performing Lab: [address] [address] WBC 5.6 10*3/uL 5.0-10.0 RBC 4.87 10*6/uL [...] 77 137/87 16 94 5 [place] Mar 10, 2024 08:36 PM 0 [place] Mar 10, 2024 06:50 PM 83 135/81 90 [place] Mar 10, 2024 06:10 PM 0 [place] Mar 10, 2024 06:03 PM 0 [place] Radiology Reports: +/- 30 days of [...] the Encounter. The data comes from all [place] treatment facilities. Date/Time Radiology Report Provider Source Mar 11, 2024 04:50 AM CHEST SINGLE(1) EW: KATE CARTER [id number] -1960 M Exm Date: MAR 11, 2024@04:50 Req Phys: DOV PETTY Loc: 5-OBM/TEL/03-11-2024@08:53 Img Loc: CDD RADIOLOGY Service: [facility] [place] [id number] (Case [id number] COMPLETE)CHEST SINGLE(1) VIEW (RAD Detailed) CPT:16782 Proc Modifiers : PORTABLE EXAM Reason for Study: POST EPS PROCEDURE Clinical History: Rule out PTX s/p BiV ICD Report Status: Verified Date Reported: MAR 11, 2024 Date Verified: MAR 11, 2024 Potato Chip Sorter E-Sig: Report: EXAMINATION: SINGLE VIEW CHEST CLINICAL [...] Interpreting Staff: CHIN CASTILLO, Radiologist Verified by platen grinder for CHIN CASTILLO /CHIN LEES-[place] [facility] Mar 10, 2024 07:46 AM 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 Please see [facility] Furniture Shampooer consults and notes in CPRS for final reporting and exam documentation. Primary Diagnostic Code: Primary Interpreting Staff: PHYS OTHER THAN [place] RADIOL, Staff Physician Verified by platen grinder for PHYS OTHER THAN [place] RADIOL /[facility] RADIOLOGIST,PHYS OTHER THAN [place] [facility] Encounter Notes: All associated encounter notes This section contains the clinical notes associated to the Encounter. Date/Time Encounter Note(s) Provider Source Mar 11, 2024 10:46 AM NURSING DISCHARGE NOTE: LOCAL TITLE: NURSING DISCHARGE NOTE STANDARD TITLE: NURSING DISCHARGE NOTE DATE OF NOTE: MAR 11, 2024@10:46 ENTRY DATE: MAR 11, 2024@10:46:52 AUTHOR: TRINA JOVEL EXP COSIGNER: URGENCY: STATUS: COMPLETED Health status at discharge remains unchanged from last reassessment. Vital signs within the last 30 minutes of patient leaving the floor: Temp: 36.1 Pulse: 71 Resp: 18 B/P: 108/68 O2: 94 IV Catheter Present: 20 gauge Left arm IV site discontinued to:Left AC Have the patient's belongings been given to the patient or family member? Yes Time patient left:1000 Patient wristband was removed and destroyed in a shred box. Patient left:Wheelchair Patient left with:Family /amando/ TRINA JOVEL RN Signed: 03/11/2024 10:47 [facility] Mar 11, 2024 10:09 AM OBSERVATION NUÑEZ D ISCHARGE NOTE: LOCAL TITLE: Observation Patient Discharge Summary STANDARD TITLE: OBSERVATION NUÑEZ DISCHARGE NOTE DICT DATE: MAR 11, 2024@08:42 ENTRY DATE: MAR 11, 2024@08:42:17 DICTATED BY: DOV PETTY ATTENDING: FELIBERTO MERINO URGENCY: routine STATUS: COMPLETED Discharge Diagnoses/Symptoms: ICM Summary of the reason for observation admission: s/p BiV ICD Outcome: Stable Follow-up plans: 10 days in [facility] Post Op clinic for incision check/staple removal DISCHARGE INSTRUCTIONS: Discharge to:Home Diet:Low Sodium Wound Care/ Activity: The Aquacel dressing will be removed at your follow up appointment. You may shower but keep dressing dry for the next 5-7 days. No baths. [place] will be removed at your follow up appointment. Contact us for an immediate appointment if you experience pain, swelling, or skin discoloration of your implant side arm or hand, or if you have fever and chills. Do not raise your implant side arm above your shoulder level for 4 weeks. Do not lift anything over 5lbs for 4 weeks. No driving for 4 days post procedure. Medications: Resume all active outpatient medictions today. [id number] /amando/ DOV PETTY physician assistant tennis professional Signed: 03/11/2024 08:43 /amando/ FELIBERTO MERINO MD ATTENDING PHYSICIAN CARDIAC ELECTROPHYSIOLOGY Cosigned: 03/11/2024 10:33 DOV PETTY-MARÍA [facility] Mar 11, 2024 09:58 AM NURSING INPATIENT NOTE: LOCAL TITLE: [facility] NURSING FREQUENT DOCUMENTATION STANDARD TITLE: NURSING INPATIENT NOTE DATE OF NOTE: MAR 11, 2024@09:58 ENTRY DATE: MAR 11, 2024@09:58:05 AUTHOR: TESS MORELOS EXP COSIGNER: URGENCY: STATUS: COMPLETED Version 2.4 Charting in accordance with [place] APPROVED [place] STANDARD (NVAES) ACUTE INPATIENT/REHABILITATION NURSING ADMISSION SCREENING, ASSESSMENT, AND STANDARDS OF CARE ====== ACTIVITIES OF DAILY LIVING ====== Hygiene ADLs: Eating: Independent Oral Care: Non-ventilator patient: Patient teeth brushed: Independently The was educated that poor oral hygiene increases the risk of hospital acquired pneumonia and dental problems like gingivitis and tooth decay. [facility] was educated using their preferred method and verbalized understanding. /amando/ TESS MORELOS Manager Business Intelligence Signed: 03/11/2024 10:02 ROBB MORELOSGA [facility] Mar 11, 2024 09:29 AM CLINICAL WARNING: LOCAL TITLE: Implanted Cardiac Device STANDARD TITLE: CLINICAL WARNING DATE OF NOTE: MAR 11, 2024@09:29 ENTRY DATE: MAR 11, 2024@09:29:13 AUTHOR: RUTHANN BARONE EXP COSIGNER: URGENCY: STATUS: COMPLETED Patient has an Implanted Cardiac Device. 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 RA lead - [employer], model [id number], SN [id number]. RV lead - [employer], model 7122Q, SN [id number]. LV - [employer]don, model 1458QL, SN [id number]. Parameters: RA - threshold - 0.25v@0.5ms, 460 ohms, sensing - >5mV RV - threshold - 0.25v@0.5ms, 640 ohms, sensing - >12mV LV - threshold - 1.25v@0.5ms, 700 ohms. DFT's - were not assessed. Shock coil impedance - 73 ohms. Implant 03/10/2024 Dr. Merino /amando/ RUTHANN BARONE RN Signed: 03/11/2024 09:32 [facility] Mar 11, 2024 09:27 AM NURSING DISCHARGE NOTE: LOCAL TITLE: DISCHARGE INSTRUCTIONS STANDARD TITLE: NURSING DISCHARGE NOTE DATE OF NOTE: MAR 11, 2024@09:27 ENTRY DATE: MAR 11, 2024@09:27:52 AUTHOR: SHABNAM COFFEY EXP COSIGNER: URGENCY: STATUS: COMPLETED Discharge instructions provided to: Patient Contact telephone number: (This number will be used for our clinical staff to call you regarding your follow up.) See Chart LIFE-SUSTAINING TREATMENT NOTE: No Data Found for the Selected Note Titles No LST Note in CPRS. PSYCHOSOCIAL SCREEN C-SSRS Screening [place] Suicide Severity Rating Scale (C-SSRS) screener 1. [...] required due to responses to other questions. C-SSRS Screen is Negative [employer] education material provided: FINAL DIAGNOSES: ICM PROCEDURES: BiV ICD UPCOMING OUTPATIENT APPOINTMENTS: Future Appointments: 03/16/2024 10:30 [facility] PACT JACI 1-2 INPATIENT APPOINTMENT 04/08/2024 08:15 [facility] MED CARD ECHO 1 INPATIENT APPOINTMENT 05/05/2024 09:40 XIOMY POD/ATT5/LD INPATIENT APPOINTMENT PLAN FOR FOLLOW UP: 10 days in Cardiology EP Post Op clinic for incision check/staple removal DIET: Heart Failure (Low Sodium) ACTIVITY/WOUND CARE : The Aquacel dressing will be removed at your follow up appointment. You may shower but keep dressing dry for the next 5-7 days. No baths. Glen[place] will be removed at your follow up appointment. Contact us for an immediate appointment if you experience pain, swelling, or skin discoloration of your implant side arm or hand, or if you have fever and chills. Do not raise your implant side arm above your shoulder level for 4 weeks. Do not lift anything over 5lbs for 4 weeks. No driving for 4 days post procedure. OTHER: ICD Future Appointments - Mar@10:30 [facility] PACT JACI 1-2 Apr@08:15 [facility] MED CARD ECHO 1 May@09:40 XIOM[facility] POD/ATT5/LD Diet: Heart Healthy (Cardiac)/Regular Heart Healthy (Cardiac)/Regular Activity: Other: Do not raise your implant side arm above your shoulder level for 4 weeks.Do not lift anything over 5lbs for 4 weeks. No driving for 4 days post procedure. Self Care: Independent Pressure Ulcer or Wound Care? Yes Wound Care Wound Location: left chest Treatment reviewed and teach back completed with pt/significant other: Pt verbalized understanding. Following supplies ordered by provider: BRITTANY [place] on Demand Education reviewed and provided ICD The Aquacel dressing will be removed at your follow up appointment. You may shower but keep dressing dry for the next 5-7 days. No baths. [place] will be removed at your follow up appointment. Flu Vaccine: Due *After Completion of this note initiate flu vaccine order from Nurse menu medication order set Deferral / Refusal The patient declines to receive the recommended dose of seasonal influenza vaccine. Immunization: INFLUENZA, UNSPECIFIED FORMULATION Refusal Reason: PATIENT DECISION Patient refuses all immunization(s) in the FLU group Date Documented: 03/11/24 09:31 Pneumonia Vaccine: Due Refuses PCV vaccine Immunization: PNEUMOCOCCAL CONJUGATE, UNSPECIFIED FORMULATION Refusal Reason: PATIENT DECISION Patient refuses all immunization(s) in the PneumoPCV group Date Documented: 03/11/24 09:31 Tobacco Cessation Program Patient not interested in Outpatient Tobacco Cessation Program and/or Not Applicable. PLEASE STOP IN PHARMACY AND WATER SUPPLY ENGINEER YOUR MEDICATIONS See Outpatient Medications at Discharge note for complete list of medications. Equipment provided: none Healthy Life: Weight: (If you have Heart Failure we recommend you have a scale at home and follow the following instructions). Weigh yourself at the same time EVERY day. (Morning is preferred after emptying your bladder before eating or drinking.) Keep a record of your weight. Reduce your weight to no more than 10% greater than your ideal weight. In general, IF YOU GAIN MORE THAN 2 POUNDS OVERNIGHT OR MORE THAN 3-5 POUNDS IN ONE WEEK, CALL YOUR HEALTHCARE PROVIDER. Call if temperature greater than 101.4, Call if incision has increased redness, swelling, or warmth, Call if skin around incision has red streaks or incision drains pus, Call if pain is not controlled to an acceptable level, Call if shortness of breath that does not go away with rest, Call if chest pain unrelieved with 2 nitroglycerin tablets, Call if experiencing falls, Call if there is a change in mental status. Call if symptoms worsen. If you have any questions please contact our Telephone Care Program [phone] locally or Toll Free at After hours [place] Advice Nurse [phone] locally or Toll Free at [facility] Crisis Line is 988, then press 1 To hear your scheduled appointments or to renew your prescriptions by phone call [phone] locally or Toll Free at . Patient/caregiver verbalized understanding of , discharge instruction. Copy of discharge , instructions provided to patient/caregiver. Wristband removed: Yes /amando/ SHABNAM Coffey Signed: 03/11/2024 09:34 SHABNAM COFFEY-[facility] Mar 11, 2024 09:27 AM SCANNED NOTE: LOCAL TITLE: SCANNED ADMISSIONS/DISCHARGES STANDARD TITLE: SCANNED NOTE DATE OF NOTE: MAR 11, 2024@09:27 ENTRY DATE: MAR 12, 2024@09:27:15 AUTHOR: TALA MEYER EXP COSIGNER: URGENCY: STATUS: COMPLETED The scanned document may be viewed in [employer]. /amando/ TALA MEYER [employer] DEAN Signed: 03/12/2024 09:27 TALA MEYER-[facility] Mar 11, 2024 09:25 AM NURSING DISCHARGE PLAN: LOCAL TITLE: DISCHARGE PLANNING ASSESSMENT STANDARD TITLE: NURSING DISCHARGE PLAN DATE OF NOTE: MAR 11, 2024@09:25 ENTRY DATE: MAR 11, 2024@09:25:59 AUTHOR: PURA TORRES EXP COSIGNER: URGENCY: STATUS: COMPLETED Admission Diagnosis: PROCEDURE: Pacemaker Anticipated discharge destination: Home Admitted to following team: Specialty team: Cardiology Full assessment indicated Spoke with: Patient Spouse: Krystyna Phone number: #[phone]- [facility] #[phone]- Krystyna Current Services: None Patient lives: With SpouseKrystyna Does patient manage their own medications: Yes Does patient take all medicines as prescribed? Yes Is patient independent with dressing and bathing? Yes Are bedrooms and bathrooms accessible to patient: Yes Do you get primary care through the [place]: Yes Following Medical Supplies patient confirms to have in working condition: Cane , Walker, Wheelchair, Seat in Shower, Grab bars , BP cuff , Weight scale, Glucometer , Bed with adjustable head Equipment needs: None identified at this time. Tobacco/Nicotine: Final Tobacco/Nicotine Assessment for this Admission Do you currently or have you ever used tobacco or nicotine products? Former- tobacco user Does patient have home oxygen? No Does patient any wound care needs? Yes: Procedure site. Cardiology following for post-procedure care/instructions. STRIDE: Age <65 years STRIDE consult not indicated Comments: /amando/ Pura Torres RN, BSN surgical forceps fabricator Signed: 03/11/2024 09:28 PURA TORRES-[facility] Mar 11, 2024 08:48 AM ADDENDUM: LOCAL TITLE: Addendum STANDARD TITLE: ADDENDUM DATE OF NOTE: MAR 11, 2024@08:48:49 ENTRY DATE: MAR 11, 2024@08:48:50 AUTHOR: FREDIS VILLA COSIGNER: URGENCY: STATUS: COMPLETED PLAN FOR FOLLOW UP: 10 days in Cardiology EP Post Op clinic for incision check/staple removal tagging cardiology ep for f/u appt /amando/ FREDIS VILLA Signed: 03/11/2024 08:49 Receipt Acknowledged By: 03/11/2024 09:43 /amando/ RUTHANN BARONE RN --- Original Document --- 03/11/24 DISCHARGE DAY PROGRESS NOTE: THE PERSON RESPONSIBLE FOR DICTATING/ENTERING THE DISCHARGE SUMMARY ON THIS PATIENT IS: Dov Petty PA-C FINAL DIAGNOSES: ICM PROCEDURES: BiV ICD UPCOMING OUTPATIENT APPOINTMENTS: Future Appointments: 03/16/2024 10:30 XIOMY PACT JACI 1-2 INPATIENT APPOINTMENT 04/08/2024 08:15 XIOM[facility] MED CARD ECHO 1 INPATIENT APPOINTMENT 05/05/2024 09:40 XIOMY POD/ATT5/LD INPATIENT APPOINTMENT PLAN FOR FOLLOW UP: 10 days in Cardiology EP Post Op clinic for incision check/staple removal DIET: Heart Failure (Low Sodium) ACTIVITY/WOUND CARE : The Aquacel dressing will be removed at your follow up appointment. You may shower but keep dressing dry for the next 5-7 days. No baths. [place] will be removed at your follow up appointment. Contact us for an immediate appointment if you experience pain, swelling, or skin discoloration of your implant side arm or hand, or if you have fever and chills. Do not raise your implant side arm above your shoulder level for 4 weeks. Do not lift anything over 5lbs for 4 weeks. No driving for 4 days post procedure. SUBJECTIVE: doing well, no complaints DISCHARGE EXAM: VITALS: BP: 109/72 (03/11/2024 08:05) Pulse: 70 (03/11/2024 08:05) Wt: 200.4 lb [90.90 kg] (02/21/2024 14:31) Physical Exam: General Appearance: Well developed, well-nourished, in no acute distress. Heart: RRR, no murmur, gallop or rub Lungs: Clear to auscultation bilaterally Abdomen: Soft, nontender, no guarding or rebound. Bowel sounds present. Extremities: No clubbing, cyanosis, or edema Psychiatric: Awake, alert and oriented x 3. Appropriate mood and affect. Skin: Warm, dry, and well perfused.No dermatitis or ulcerations. ICD site: stable, no hematoma CXR: stable, no PTX MEDICATION ADJUSTMENTS AND REASON: No new medications. Resume all active outpatient medications today. See Outpatient Medications at Discharge note for complete list of medications. /amando/ DOV PETTY physician assistant tennis professional Signed: 03/11/2024 08:41 Receipt Acknowledged By: 03/11/2024 09:43 /es/ FREDIS BUTLER RN-MARÍA [facility] Mar 11, 2024 08:48 AM NURSING INPATIENT NOTE: LOCAL TITLE: NVAES ACUTE INPATIENT NSG SHIFT ASSESSMENT STANDARD TITLE: NURSING INPATIENT NOTE DATE OF NOTE: MAR 11, 2024@08:48 ENTRY DATE: MAR 11, 2024@10:48:18 AUTHOR: TRINA JOVEL COSIGNER: URGENCY: STATUS: COMPLETED Version 2.2 Charting in accordance with [place] APPROVED [place] STAND[place] (NVAES) ACUTE INPATIENT/REHABILITATION NURSING ADMISSION SCREENING, ASSESSMENT, AND STANDARDS OF CARE ====== ASSESSMENT ====== ====== HANDOFF ====== Bedside report and handoff completed Safety check completed ====== PAIN ASSESSMENT ====== Patient's acceptable pain goal: 0 No pain Are you currently experiencing pain? No: Pain Score: 0 ====== GARBER FALL SCALE & TIPS PROGRAM ====== Garber Fall Scale: The Garber Fall scale was performed and score was 20. This is indicative of low risk of falls. History of falling: immediate or within 3 months? No Secondary diagnosis: No Ambulatory aid: None/bedrest/nurse assist Intravenous therapy/Heparin lock: Yes Gait/Transferring: Normal/bed rest/immobile Mental Status: Oriented to own ability/knows own limitations Fall Tailoring Interventions for Patient Safety (TIPS) Fall TIPS initiated with patient: Yes Interventions: Communicate recent fall or risk of harm Fall TIPS reviewed with patient: Yes Interventions: Communicate recent fall or risk of harm ====== ENVIRONMENTAL SAFETY MANAGEMENT ====== Implemented safety standards of care: -[place] to unit & environment -Adequate room lighting -Bed in low and locked position -Call light within reach -Personal items within reach -Traffic path in room free of clutter -Non-slip footwear -Upper/half length side rails up for bed mobility -Sensory aids within reach -Encourage patient to utilize sensory support ====== NEUROLOGICAL ====== Neurological Orientation: Oriented x4 Level of Consciousness (AVPU): Alert = Appears aware of and responsive to the environment on their own. Follows commands, opens eyes spontaneously, and tracks objects. Affect/behavior: Cooperative Calm ====== NEUROMUSCULAR/NEUROVASCULAR EXTREMITIES ASSESSMENT ====== Strength: Emt Bilateral: Strong Upper Extremity Bilateral: Full strength Lower Extremity Bilateral: Full strength Sensation: Upper Extremity Sensation Bilateral: Intact Lower Extremity Sensation Bilateral: Intact Temperature: Upper Extremity Temperature Bilateral: Warm Lower Extremity Temperature Bilateral: Warm ====== CARDIOVASCULAR ====== Heart Sounds: Normal (S1S2) Heart Rate/Rhythm (without monitor technician): Regular Cardiac Rhythm Analysis: Paced: Ventricular paced Capillary Refill: All 4 extremities, less than or equal to 3 seconds. Edema: None Supplemental Cardiovascular: Pacemaker (new or temporary): Permanent (new): Dressing: Intact Function: Capturing appropriately Sensing appropriately ====== RESPIRATORY ====== Respirations: Unlabored Pattern: Regular Breath Sounds Auscultated: Anterior and posterior Left Upper Lobe: Clear Right Upper Lobe: Clear Right Middle Lobe: Clear Left Lower Lobe: Clear Right Lower Lobe: Clear ====== GASTROINTESTINAL ====== Last bowel movement: 03/10/2024 Elimination: Continent Abdominal Description: Rounded Palpation: Soft, Non-tender Bowel Sounds: RUQ: Active LUQ: Active RLQ: Active LLQ: Active ====== GENITOURINARY ====== Elimination: Continent ===== INTEGUMENTARY/SKIN/WOUND - (INCLUDING ANANYA) SEE NOTE: VAAES SKIN INPECTION/ASSESSMENT ===== ===== INTEGUMENTARY/SKIN/WOUND - (INCLUDING ANANYA) ===== Assessment Type: SKIN REINSPECTION/REASSESSMENT SKIN INSPECTION: Skin Color: Usual for ethnicity Skin Temperature: Warm Skin Moisture: Normal Skin Turgor: Elastic (normal/immediate) Ananya Skin Assessment: The patient's Ananya Scale Score is 22. The patient is considered not at risk for development of pressure ulcers/injuries. Sensory perception -- ability to respond meaningfully to pressure- related discomfort No impairment. Moisture -- degree to which skin is exposed to moisture Rarely moist. Activity -- ability to change and control body position Walks occasionally. Mobility -- ability to change and control body position No limitation. Nutrition -- usual food intake patterns Excellent. Friction and shear No apparent problem. INTERVENTIONS: The pressure injury interventions were not needed - patient/resident is not at risk. RISK FACTORS THAT INCREASE RISK FOR DEVELOPING PRESSURE INJURIES The patient/resident does not have any additional risk factors. SKIN ALTERATIONS: Wound Documentation from the past year: Skin Assessment 03/11/2024 Skin Integrity - Wound 03/10/2024 Skin Integrity - Wound Wound - other than pressure ulcer/injury (includes open surgical wounds/incisions): Location: Left upper chest No Edema Wound drainage none. SKIN/WOUND DRESSING: Location(s): left upper chest Clean Dry Intact Other comments: aquacell ====== ACTIVITIES OF DAILY LIVING ====== Hygiene ADLs: Dressing: Upper Body: Independent Lower Body: Independent Eating: Independent Oral Care: Non-ventilator patient: Patient teeth brushed: Independently The was educated that poor oral hygiene increases the risk of hospital acquired pneumonia and dental problems like gingivitis and tooth decay. Cardinal was educated using their preferred method and verbalized understanding. Toileting: Independent ====== IV LINES ====== Peripheral IV: Line #1: Assessment: Location: Left, Antecubital Gauge: 20 Dressing Condition: Clean, dry, intact Transparent dressing Site Condition: No redness, swelling, pain Line Status: Capped Flushed ====== PSYCHOSOCIAL ====== Type of Emotional Support Provided: 1:1 discussion, Anticipated outcomes, Hospitalization discussion, Treatment discussion, Ventilation of feelings marisol /amando/ TRINA JOVEL RN Signed: 03/11/2024 10:59 TRINA JOVEL-CDD [facility] Mar 11, 2024 08:37 AM PHYSICIAN DISCHARG E NOTE: LOCAL TITLE: DISCHARGE DAY PROGRESS NOTE STANDARD TITLE: PHYSICIAN DISCHARGE NOTE DATE OF NOTE: MAR 11, 2024@08:37 ENTRY DATE: MAR 11, 2024@08:38:01 AUTHOR: DOV PETTY COSIGNER: FELIBERTO MERINO URGENCY: STATUS: COMPLETED DISCHARGE DAY PROGRESS NOTE Has ADDENDA THE PERSON RESPONSIBLE FOR DICTATING/ENTERING THE DISCHARGE SUMMARY ON THIS PATIENT IS: Dov Petty PAHalima FINAL DIAGNOSES: ICM PROCEDURES: BiV ICD UPCOMING OUTPATIENT APPOINTMENTS: Future Appointments: 03/16/2024 10:30 [facility] PACT JACI 1-2 INPATIENT APPOINTMENT 04/08/2024 08:15 XIOM[facility] MED CARD ECHO 1 INPATIENT APPOINTMENT 05/05/2024 09:40 XIOMY POD/ATT5/LD INPATIENT APPOINTMENT PLAN FOR FOLLOW UP: 10 days in Cardiology EP Post Op clinic for incision check/staple removal DIET: Heart Failure (Low Sodium) ACTIVITY/WOUND CARE : The Aquacel dressing will be removed at your follow up appointment. You may shower but keep dressing dry for the next 5-7 days. No baths. Glenys will be removed at your follow up appointment. Contact us for an immediate appointment if you experience pain, swelling, or skin discoloration of your implant side arm or hand, or if you have fever and chills. Do not raise your implant side arm above your shoulder level for 4 weeks. Do not lift anything over 5lbs for 4 weeks. No driving for 4 days post procedure. SUBJECTIVE: doing well, no complaints DISCHARGE EXAM: VITALS: BP: 109/72 (03/11/2024 08:05) Pulse: 70 (03/11/2024 08:05) Wt: 200.4 lb [90.90 kg] (02/21/2024 14:31) Physical Exam: General Appearance: Well developed, well-nourished, in no acute distress. Heart: RRR, no murmur, gallop or rub Lungs: Clear to auscultation bilaterally Abdomen: Soft, nontender, no guarding or rebound. Bowel sounds present. Extremities: No clubbing, cyanosis, or edema Psychiatric: Awake, alert and oriented x 3. Appropriate mood and affect. Skin: Warm, dry, and well perfused.No dermatitis or ulcerations. ICD site: stable, no hematoma CXR: stable, no PTX MEDICATION ADJUSTMENTS AND REASON: No new medications. Resume all active outpatient medications today. See Outpatient Medications at Discharge note for complete list of medications. /amando/ DOV PETTY physician assistant tennis professional Signed: 03/11/2024 08:41 /amando/ FELIBERTO MERINO MD ATTENDING PHYSICIAN CARDIAC ELECTROPHYSIOLOGY Cosigned: 03/11/2024 10:36 Receipt Acknowledged By: 03/11/2024 09:43 /amando/ RUTHANN BARONE RN 03/11/2024 ADDENDUM STATUS: COMPLETED PLAN FOR FOLLOW UP: 10 days in Cardiology EP Post Op clinic for incision check/staple removal tagging cardiology ep for f/u appt /amando/ FREDIS VILLA Signed: 03/11/2024 08:49 Receipt Acknowledged By: 03/11/2024 09:43 /amando/ RUTHANN PETTY,DOV UNDERWOOD-HARPERD [facility] Mar 11, 2024 05:49 AM NURSING INPATIENT NOTE: LOCAL TITLE: [facility] NURSING FREQUENT DOCUMENTATION STANDARD TITLE: NURSING INPATIENT NOTE DATE OF NOTE: MAR 11, 2024@05:49 ENTRY DATE: MAR 11, 2024@05:49:53 AUTHOR: LEIGH CORDOBA COSIGNER: URGENCY: STATUS: COMPLETED Version 2.4 Charting in accordance with [place] STANDARD (NVAES) ACUTE INPATIENT/REHABILITATION NURSING ADMISSION SCREENING, ASSESSMENT, AND STANDARDS OF CARE ====== NATIONAL EARLY WARNING SCORE (NEWS) ====== The following vital measurements were used to complete the NEWS. Measurement DT TEMP PULSE RESP BP POx F(C) (L/MIN)(%) 03/11/2024 04:37 97.6(36.4) 78 16 127/83 93 The NEWS total is 2. 1. Temperature (C/F): Score = 0 36.1 - 38.0 C (96.9 - 100.4 F) 2. Pulse: Score = 0 51-90 3. Respirations: Score = 0 12-20 4. Blood Pressure (Only Systolic BP, mmHg): Score = 0 111-219 5. Pulse Oximetry: Score = 2 92% - 93% 6. Supplemental oxygen in use: Score = 0 No 7. AVPU: Score = 0 Alert Patient Status: Remains on unit /amando/ LEIGH CORDOBA BSDelma,RN,CRRN Signed: 03/11/2024 05:51 LEIGH CORDOBA-MARÍA [facility] Mar 10, 2024 10:36 PM NURSING INPATIENT NOTE: LOCAL TITLE: [facility] NURSING FREQUENT DOCUMENTATION STANDARD TITLE: NURSING INPATIENT NOTE DATE OF NOTE: MAR 10, 2024@22:36 ENTRY DATE: MAR 10, 2024@22:36:23 AUTHOR: STEVE OLIVEIRA EXP COSIGNER: URGENCY: STATUS: COMPLETED Version 2.4 Charting in accordance with [place] STANDARD (VAAES) ACUTE INPATIENT/REHABILITATION NURSING ADMISSION SCREENING, ASSESSMENT, AND STANDARDS OF CARE ====== ACTIVITIES OF DAILY LIVING ====== Hygiene ADLs: Oral Care: Non-ventilator patient: Patient teeth brushed: Independently The Cardinal was educated that poor oral hygiene increases the risk of hospital acquired pneumonia and dental problems like gingivitis and tooth decay. Cardinal was educated using their preferred method and verbalized understanding. /amando/ STEVE SOTO tech Signed: 03/10/2024 22:37 STEVE OLIVEIRA-[facility]PERD [facility] Mar 10, 2024 08:34 PM NURSING INPATIENT NOTE: LOCAL TITLE: [place] [facility] ACUTE INPATIENT NSG SHIFT ASSESSMENT STANDARD TITLE: NURSING INPATIENT NOTE DATE OF NOTE: MAR 10, 2024@20:34 ENTRY DATE: MAR 11, 2024@03:35 AUTHOR: LEIGH CORDOBA COSIGNER: URGENCY: STATUS: COMPLETED Version 2.2 Charting in accordance with [place] STANDARD (NVAES) ACUTE INPATIENT/REHABILITATION NURSING ADMISSION SCREENING, ASSESSMENT, AND STANDARDS OF CARE ====== ASSESSMENT ====== ====== HANDOFF ====== Bedside report and handoff completed Safety check completed ====== PAIN ASSESSMENT ====== Patient's acceptable pain goal: Are you currently experiencing pain? No: Pain Score: 0 ====== GARBER FALL SCALE & TIPS PROGRAM ====== Garber Fall Scale: The Garber Fall scale was performed and score was 35. This is indicative of moderate risk for falls. History of falling: immediate or within 3 months? No Secondary diagnosis: Yes Ambulatory aid: None/bedrest/nurse assist Intravenous therapy/Heparin lock: Yes Gait/Transferring: Normal/bed rest/immobile Mental Status: Oriented to own ability/knows own limitations Fall Tailoring Interventions for Patient Safety (TIPS) Fall TIPS initiated with patient: Yes Interventions: Communicate recent fall or risk of harm Fall TIPS reviewed with patient: Yes Interventions: Communicate recent fall or risk of harm ====== ENVIRONMENTAL SAFETY MANAGEMENT ====== Implemented safety standards of care: -[place] to unit & environment -Adequate room lighting -Bed in low and locked position -Call light within reach -Personal items within reach -Traffic path in room free of clutter -Non-slip footwear -Upper/half length side rails up for bed mobility -Sensory aids within reach -Encourage patient to utilize sensory support Additional safety measures: Caregiver/family in attendance ====== NEUROLOGICAL ====== Neurological Orientation: Oriented x4 Level of Consciousness (AVPU): Alert = Appears aware of and responsive to the environment on their own. Follows commands, opens eyes spontaneously, and tracks objects. Affect/behavior: Cooperative Calm [place] Agitation Sedation Scale (RASS): 0 Alert and calm ====== NEUROMUSCULAR/NEUROVASCULAR EXTREMITIES ASSESSMENT ====== Strength: Emt Bilateral: Strong Upper Extremity Bilateral: Full strength Lower Extremity Bilateral: Full strength Sensation: Upper Extremity Sensation Bilateral: Intact Lower Extremity Sensation Bilateral: Intact Temperature: Upper Extremity Temperature Bilateral: Warm Lower Extremity Temperature Bilateral: Warm ====== CARDIOVASCULAR ====== Heart Sounds: Normal (S1S2) Heart Rate/Rhythm (without monitor technician): Regular Cardiac Rhythm Analysis: Paced: Ventricular paced Capillary Refill: All 4 extremities, less than or equal to 3 seconds. Edema: None Supplemental Cardiovascular: Pacemaker (new or temporary): Permanent (new): Dressing: Intact Function: Capturing appropriately Sensing appropriately ====== RESPIRATORY ====== Respirations: Unlabored Pattern: Regular Breath Sounds Auscultated: Anterior and posterior Left Upper Lobe: Clear Right Upper Lobe: Clear Right Middle Lobe: Clear Left Lower Lobe: Clear Right Lower Lobe: Clear ====== GASTROINTESTINAL ====== Last bowel movement: 03/10/2024 Elimination: Continent Abdominal Description: Rounded Palpation: Non-tender Bowel Sounds: RUQ: Active LUQ: Active RLQ: Active LLQ: Active ====== GENITOURINARY ====== Elimination: Continent ===== INTEGUMENTARY/SKIN/WOUND - (INCLUDING ANANYA) SEE NOTE: VAAES SKIN INPECTION/ASSESSMENT ===== ===== INTEGUMENTARY/SKIN/WOUND - (INCLUDING ANANYA) ===== Assessment Type: SKIN REINSPECTION/REASSESSMENT SKIN INSPECTION: Skin Color: Usual for ethnicity Skin Temperature: Warm Skin Moisture: Normal Skin Turgor: Elastic (normal/immediate) Ananya Skin Assessment: The patient's Ananya Scale Score is 21. The patient is considered not at risk for development of pressure ulcers/injuries. Sensory perception -- ability to respond meaningfully to pressure- related discomfort No impairment. Moisture -- degree to which skin is exposed to moisture Rarely moist. Activity -- ability to change and control body position Walks occasionally. Mobility -- ability to change and control body position No limitation. Nutrition -- usual food intake patterns Adequate. Friction and shear No apparent problem. INTERVENTIONS: The pressure injury interventions were not needed - patient/resident is not at risk. RISK FACTORS THAT INCREASE RISK FOR DEVELOPING PRESSURE INJURIES: The patient/resident has the following: Device(s): (nasogastric tubes, oxygen tubing, urinary catheters, cell phone etc.) Comment: DIAMANTE shah SKIN ALTERATIONS: Pressure Ulcer/Injury Documentation from the past year: No data available SKIN ALTERATIONS: Wound Documentation from the past year: Skin Assessment 03/10/2024 Skin Integrity - Wound Incision and Flaps: Incision 1: Location: left upper chest, aquacel drsg intact, no drainage visible Status: Unable to visualize Wound drainage none. ====== IV LINES ====== Peripheral IV: Present on admission: Line #1: Location: Right Gauge: 20 ====== PSYCHOSOCIAL ====== Type of Emotional Support Provided: Hospitalization discussion, Treatment discussion, Ventilation of feelings marisol /amando/ LEIGH CORDOBA BSN,RN,CRRN Signed: 03/11/2024 03:50 LEIGH CORDOBA-CDD [facility] Mar 10, 2024 06:09 PM NURSING E & M NOTE : LOCAL TITLE: NURSING PLAN OF CARE STANDARD TITLE: NURSING E & M NOTE DATE OF NOTE: MAR 10, 2024@18:09 ENTRY DATE: MAR 10, 2024@18:09:23 AUTHOR: JO BURT COSIGNER: URGENCY: STATUS: COMPLETED NURSING PLAN OF CARE Has ADDENDA PROBLEM: Skin Integrity For Skin Plan of Care see last Skin Assessment/Reassessment Note The Daily Plan was reviewed with patient or family. DIABETES: Target date for review or resolution of problem: Mar Target date must be no less than 1 days and no greater than 3 days. Plan of care must be reviewed every shift. 3. Risk for Infection: Related to: hyperglycemia, reduction in leukocyte function and altered skin integrity. Interventions: Monitor for redness, swelling, increased pain, Assess legs and feet for altered skin integrity Evaluation: Legs and feet skin intact, Patient is a new admit, target for eval set above FALLS/INJURY POTENTIAL: Fall risk related to unfamiliar environment Target date for review or resolution of problem: Mar Target date must be no less than 1 days and no greater than 3 days. Plan of care must be reviewed every shift. Goals: Increase patients/family awareness of fall risks, Actively engage patient and family in Fall Prevention plan and training, Reduce severity of fall- related injuries, Will not sustain injury related to fall Interventions: Based on Fall Risk Scale RISK FOR INFECTION: Infection related to MRSA No hospitalization, PIV, pacemaker placement Target date for review or resolution of problem: Mar Target date must be no less than 1 days and no greater than 3 days. Plan of care must be reviewed every shift. Goals: Afebrile, Maintain intact skin and skin integrity, Maintain optimal fluid balance Interventions: Monitor Vital Signs , Monitor Intake and Output, Provide adequate hydration and nutrition, [place] precautions maintained /amando/ Kristina Burt RN MEDICAL PAYMENT POSTER Signed: 03/10/2024 18:11 03/11/2024 ADDENDUM STATUS: COMPLETED Plan of Care was reviewed with patient/significant other. DIABETES: Goal not met(explain why) Continue problem New target date (if applicable): Mar FALLS/INJURY POTENTIAL: Goal not met(explain why) Continue problem New target date (if applicable): Mar RISK FOR INFECTION: Goal not met(explain why) Continue problem New target date (if applicable): Mar /amando/ LEIGH LEIJA,RN,CRRN Signed: 03/11/2024 03:34 JO BURT-HARPERD [facility] Mar 10, 2024 06:08 PM NURSING INPATIENT NOTE: LOCAL TITLE: [place] [facility] ACUTE INPATIENT NSG SHIFT ASSESSMENT STANDARD TITLE: NURSING INPATIENT NOTE DATE OF NOTE: MAR 10, 2024@18:08 ENTRY DATE: MAR 10, 2024@20:09:07 AUTHOR: TRINA JOVEL COSIGNER: URGENCY: STATUS: COMPLETED Version 2.2 Charting in accordance with [place] STAND[place] (NVAES) ACUTE INPATIENT/REHABILITATION NURSING ADMISSION SCREENING, ASSESSMENT, AND STANDARDS OF CARE ====== ASSESSMENT ====== ====== HANDOFF ====== Bedside report and handoff completed Safety check completed ====== PAIN ASSESSMENT ====== Patient's acceptable pain goal: 0 No pain Are you currently experiencing pain? No: Pain Score: 0 ====== GARBER FALL SCALE & TIPS PROGRAM ====== Garber Fall Scale: The Garber Fall scale was performed and score was 35. This is indicative of moderate risk for falls. History of falling: immediate or within 3 months? No Secondary diagnosis: Yes Ambulatory aid: None/bedrest/nurse assist Intravenous therapy/Heparin lock: Yes Gait/Transferring: Normal/bed rest/immobile Mental Status: Oriented to own ability/knows own limitations Fall Tailoring Interventions for Patient Safety (TIPS) Fall TIPS initiated with patient: Yes Interventions: Communicate recent fall or risk of harm Fall TIPS reviewed with patient: Yes Interventions: Communicate recent fall or risk of harm ====== ENVIRONMENTAL SAFETY MANAGEMENT ====== Implemented safety standards of care: -[place] to unit & environment -Adequate room lighting -Bed in low and locked position -Call light within reach -Personal items within reach -Traffic path in room free of clutter -Non-slip footwear -Upper/half length side rails up for bed mobility -Sensory aids within reach -Encourage patient to utilize sensory support ====== NEUROLOGICAL ====== Neurological Orientation: Oriented x4 Level of Consciousness (AVPU): Alert = Appears aware of and responsive to the environment on their own. Follows commands, opens eyes spontaneously, and tracks objects. Affect/behavior: Cooperative Calm ====== NEUROMUSCULAR/NEUROVASCULAR EXTREMITIES ASSESSMENT ====== Strength: Emt Bilateral: Strong Upper Extremity Bilateral: Full strength Lower Extremity Bilateral: Full strength Sensation: Upper Extremity Sensation Bilateral: Intact Lower Extremity Sensation Bilateral: Intact Temperature: Upper Extremity Temperature Bilateral: Warm Lower Extremity Temperature Bilateral: Warm ====== CARDIOVASCULAR ====== Heart Sounds: Normal (S1S2) Heart Rate/Rhythm (without monitor technician): Regular Cardiac Rhythm Analysis: Atrial Fibrillation Capillary Refill: All 4 extremities, less than or equal to 3 seconds. Peripheral Pulses: All 4 extremities, 3+ normal. Edema: None Supplemental Cardiovascular: Pacemaker (new or temporary): Permanent (new): Dressing: Intact ====== RESPIRATORY ====== Respirations: Unlabored Pattern: Regular Breath Sounds Auscultated: Anterior only Left Upper Lobe: Clear Right Upper Lobe: Clear Right Middle Lobe: Clear Left Lower Lobe: Clear Right Lower Lobe: Clear ====== GASTROINTESTINAL ====== Elimination: Continent Abdominal Description: Rounded Palpation: Soft, Non-tender Bowel Sounds: RUQ: Active LUQ: Active RLQ: Active LLQ: Active ====== GENITOURINARY ====== Elimination: Continent ===== INTEGUMENTARY/SKIN/WOUND - (INCLUDING ANANYA) SEE NOTE: VAAES SKIN INPECTION/ASSESSMENT ===== ===== INTEGUMENTARY/SKIN/WOUND - (INCLUDING ANANYA) ===== Assessment Type: INITIAL SKIN INSPECTION/ASSESSMENT SKIN INSPECTION: Skin Color: Usual for ethnicity Skin Temperature: Warm Skin Moisture: Normal Skin Turgor: Elastic (normal/immediate) Ananya Skin Assessment: The patient's Ananya Scale Score is 22. The patient is considered not at risk for development of pressure ulcers/injuries. Sensory perception -- ability to respond meaningfully to pressure-related discomfort No impairment. Moisture -- degree to which skin is exposed to moisture Rarely moist. Activity -- ability to change and control body position Walks occasionally. Mobility -- ability to change and control body position No limitation. Nutrition -- usual food intake patterns Excellent. Friction and shear No apparent problem. INTERVENTIONS: The pressure injury interventions were not needed - patient/resident is not at risk. RISK FACTORS THAT INCREASE RISK FOR DEVELOPING PRESSURE INJURIES The patient/resident does not have any additional risk factors. Incision and Flaps: Incision 1: Location: Left chest wall Status: Unable to visualize Closure: Sutures Wound drainage none. Dressing type: Other: aqua cell SKIN/WOUND DRESSING: Location(s): Left chest wall Clean Dry Intact ====== ACTIVITIES OF DAILY LIVING ====== Hygiene ADLs: Dressing: Upper Body: Independent Lower Body: Independent Eating: Independent Toileting: Independent ====== MOBILITY ====== Mobility Status: Independent: Gait: Steady ====== PSYCHOSOCIAL ====== Type of Emotional Support Provided: 1:1 discussion, Anticipated outcomes, Hospitalization discussion, Treatment discussion, Ventilation of feelings encouraged /es/ TRINA JOVEL RN Signed: 03/10/2024 20:17 TRINA JOVEL [place] Mar 10, 2024 05:52 PM NURSING ADMISSION EVALUATION NOTE: LOCAL TITLE: VAAES ACUTE INPATIENT NSG ADMISSION S STANDARD TITLE: NURSING ADMISSION EVALUATION NOTE DATE OF NOTE: MAR 10, 2024@17:52 ENTRY DATE: MAR 10, 2024@17:52:12 AUTHOR: JO BURT COSIGNER: URGENCY: STATUS: COMPLETED ===== ALLERGY/ADVERSE DRUG REACTION (ADR) REVIEW (MRT5) ===== FACILITY ALLERGY/ADR -------- [facility] VANCOMYCIN [facility] GABAPENTIN [facility] PREGABALIN [facility] SIMVASTATIN [facility] VANCOMYCIN Allergy/Adverse Drug Reaction Review to be conducted by: Nurse: Results of Allergy/ADR Review: Allergy/Adverse Drug Reaction list confirmed. ==== MEDICATION REVIEW (MRR1) ==== Did patient bring medication(s) from home? No Medication Review to be conducted by Provider ==== GENERAL INFORMATION ==== Admission information given by: Patient Is there a legal guardian/conservator? No Preferred language for discussing healthcare: Sinhala Preferred mode of communication: Verbal Written Items at Bedside: Visual Aids: prescription glasses Other: clothing, cell phone ===== INFECTIOUS DISEASE RISK SCREEN ===== Travel Screen: Have you traveled within the [place] within the last 21 days? No Have you traveled outside the [place] within the last 21 days? No Within the last 14 days, have you had: No known exposure Other Exposure to Infectious Disease: No known exposure Patient reported the following symptoms: No Symptoms Present History of Multiple Drug Resistant Organism (MDRO): No ===== NUTRITION SCREENING ===== Malnutrition Screening Weight (Previous 6 months): Measurement DT WEIGHT LB(KG)[BMI] 02/21/2024 14:31 200.4(90.90)[27] 01/29/2024 15:07 199.0(90.26)[27] 09/25/2023 13:58 196.8(89.27)[27] Lost weight recently without trying: No (0 points) Have you been eating poorly because of decreased appetite? No (0 points) Total Score: 0 Other Nutrition Screening Questions: The patient does not report any concerns with their teeth that would make it difficult to eat. The patient does not report overeating to the point of feeling sick or making themselves vomit. The patient denies gaining 10 lbs.(4.5 kgs) or more in the past 3 months without trying. The patient denies having any food allergies, intolerance, special dietary needs, or ethnic, cultural or latter-day preferences that would affect their dietary needs. Food Insecurity Screening Within the past 12 months, you worried whether your food would run out before you got money to buy more. Never true Within the past 12 months, the food you bought just did not last you and you did not have the money to get more. Never true Food Insecurity Disposition: ==== RISK SCREENINGS ==== Alcohol Screen: Screen to be completed by: Nurse: SCREEN FOR ALCOHOL (AUDIT-C) An alcohol screening test (AUDIT-C) was negative (score=2). 1. How often did you have a drink containing alcohol in the past year? Consider a drink to be a 12 ounce can or bottle of regular beer, 8 ounces of malt liquor, a 5 ounce glass of table wine, or a 1.5 ounce shot of liquor (like scotch, gin, or vodka). Two to four times a month 2. How many drinks containing alcohol did you have on a typical day when you were drinking in the past year? One or two drinks 3. How often did you have six or more drinks on one occasion in the past year? Never *Does the patient consume alcohol? Yes: Alcohol Use History: Amount used/Frequency: 1 beer once a week Date/Time of last use: Mar Do you have a history of alcohol withdrawal symptoms? No Do you have a history of Delirium Tremens (DTs)? No Do you have a history of seizures related to withdrawal? No Tobacco Use: Former - tobacco user Do you currently or have you ever used alternative nicotine products? No Substance Use Assessment: *Do you use any recreational drugs or narcotics (prescription or non-prescription)? No ===== RISK OF WANDERING ===== The patient does not have a history of wandering. The patient does not have a history of elopement. The patient is not expressing a desire to leave. === SUICIDE SCREEN === [place] Suicide Severity Rating Scale (C-SSRS) 1. Over the past month, have you [...] required due to responses to other questions. C-SSRS Screen is Negative ==== EXPOSURE TO VIOLENCE AND ABUSE PRE-SCREEN ==== Are you worried for your safety, that you will be hurt or harmed? No Has anyone tried to force you to sign papers or use your money against your will? No ==== POST TRAUMATIC STRESS DISORDER CARE CONSIDERATIONS ==== To minimize a startle response, what is your preference on how best to awaken you? No preference ===== REPRODUCTIVE & SEXUAL HEALTH ===== Do you have any sexual or reproductive concerns you would like your healthcare team to be aware of? No ==== ADVANCE DIRECTIVE ==== Notification of Rights Related to Advance Directives: Written notification provided. *The patient wishes to receive information about or assistance with Advance Care Planning and/or Advance Directive: No === SPIRITUALITY === Are there latter-day practices or spiritual concerns you want the repeat chief, your provider, and other health care team members to know? No ==== ANTICIPATED DISCHARGE NEEDS ==== Where do you live? Housing owned/rented by [employer]: Comment: with Method of transportation upon discharge: Private Vehicle: Are there any anticipated barriers to discharge? No === EDUCATIONAL NEEDS/LEARNING STYLE === Barriers to learning: None evident Patient learning style preferences: None ==== VISITOR INFORMATION ==== Will you have a primary support person while in the hospital? No Patient's Visitor Restriction preferences: No Privacy Review: ====== GARBER FALL SCALE & TIPS PROGRAM ====== Garber Fall Scale: The Garber Fall scale was performed and score was 35. This is indicative of moderate risk for falls. History of falling: immediate or within 3 months? No Secondary diagnosis: Yes Ambulatory aid: None/bedrest/nurse assist Intravenous therapy/Heparin lock: Yes Gait/Transferring: Normal/bed rest/immobile Mental Status: Oriented to own ability/knows own limitations Fall Tailoring Interventions for Patient Safety (TIPS) Fall TIPS initiated with patient: Yes Interventions: Communicate recent fall or risk of harm ====== PAIN ASSESSMENT ====== Patient's acceptable pain goal: 1 Hardly notice pain Are you currently experiencing pain? No: Pain Score: 0 /es/ Kristina Burt RN MEDICAL PAYMENT POSTER Signed: 03/10/2024 18:04 JO BURT-MARÍA [facility] Mar 10, 2024 05:30 PM ADVANCE DIRECTIVE DISCUSSION: LOCAL TITLE: ADMISSION ADVANCED DIRECTIVE NOTE STANDARD TITLE: ADVANCE DIRECTIVE DISCUSSION DATE OF NOTE: MAR 10, 2024@17:30 ENTRY DATE: MAR 10, 2024@17:30:35 AUTHOR: VIK HALLMAN EXP COSIGNER: URGENCY: STATUS: COMPLETED Patient/Family received copy of Your Right to Decide : Yes Do you have an advance directive? No, patient does not have an advance directive. Would you like to make an advance directive? No, patient does not want to make an advance directive. Would you like more information regarding an advance directive? No, does not want more info on advance directive. Based upon Treatment Team Assignment, an ID signer alert sent to Beach Attendant for Advance Directive Status: Alert sent to: Name of Charge Nurse to be identified as signer: COMMENTS: /amando/ VIK HALLMAN MSA Signed: 03/10/2024 17:30 VKI HALLMAN-CDD [facility] Mar 10, 2024 05:30 PM ADMINISTRATIVE NOT E: LOCAL TITLE: ESSENTIAL MEDICATIONS LIST FOR REVIEW (EMLR) STANDARD TITLE: ADMINISTRATIVE NOTE DATE OF NOTE: MAR 10, 2024@17:30 ENTRY DATE: MAR 10, 2024@17:30:58 AUTHOR: VIK HALLMAN EXP COSIGNER: URGENCY: STATUS: COMPLETED Active and Recently Outpatient Medications (excluding Supplies): [...] ACTIVE EACH NOSTRIL DAILY FOR NASAL ALLERGY 8) GLIPIZIDE 10MG TAB TAKE TWO TABLETS BY MOUTH TWICE A ACTIVE DAY FOR DIABETES 9) INSULIN,GLARGINE-YFGN 100UNIT/ML *PEN* INJECT 17 ACTIVE UNITS UNDER THE SKIN DAILY FOR BLOOD SUGAR -DISCARD PEN AFTER 28 DAYS OF USE 10) METFORMIN HCL 500MG 24HR SA TAB TAKE TWO TABLETS BY ACTIVE MOUTH TWICE A DAY FOR DIABETES 11) METOPROLOL SUCCINATE 100MG SA TAB TAKE ONE AND ACTIVE ONE-HALF TABLETS BY MOUTH DAILY FOR HEART 12) MULTIVIT/OPHTH AREDS2/LUTE/ZEAX CAP/TAB TAKE 1 ACTIVE SOFTGEL BY MOUTH TWICE A DAY AFTER MEALS FOR EYE HEALTH 13) OMEPRAZOLE 20MG EC CAP TAKE ONE CAPSULE BY MOUTH ACTIVE TWICE A DAY FOR STOMACH. TAKE ON AN EMPTY STOMACH 14) ROSUVASTATIN CA 40MG TAB TAKE ONE TABLET BY MOUTH ACTIVE DAILY FOR CHOLESTEROL 15) SACUBITRIL 97MG/VALSARTAN 103MG TAB TAKE 1 TABLET BY ACTIVE MOUTH TWICE A DAY FOR HEART FAILURE 16) SPIRONOLACTONE 25MG TAB TAKE ONE TABLET BY MOUTH ACTIVE DAILY FOR HEART FAILURE Inactive Outpatient Medications Status 1) CLOPIDOGREL BISULFATE 75MG TAB TAKE ONE TABLET BY MOUTH DAILY TO THIN BLOOD 2) CYCLOBENZAPRINE HCL 10MG TAB TAKE ONE TABLET BY MOUTH AT BEDTIME FOR MUSCLE SPASMS 3) LATANOPROST 0.005% OPH SOLN PUT 1 DROP IN BOTH EYES AT BEDTIME FOR GLAUCOMA Active Non-VA Medications Status 1) Non-VA ASCORBIC ACID 500MG TAB 1000MG MOUTH DAILY ACTIVE 2) Non-VA CENTRUM SILVER TABLET 1 TABLET MOUTH DAILY ACTIVE 3) Non-VA MAGNESIUM OXIDE 420MG TAB 840MG MOUTH DAILY ACTIVE 22 Total Medications Allergies: local and remote VANCOMYCIN, GABAPENTIN, PREGABALIN, SIMVASTATIN, ROSUVASTATIN FACILITY ALLERGY/ADR -------- 581^[facility]^581 VANCOMYCIN Review of medications include: Patient allergies (Remote and Local) and active and pending prescriptions dispensed from this [place] (local) and dispensed from another [facility] or [facility] facility (remote and pending) as well as local inpatient orders (pending and active) and clinic medications (IMOs), locally documented non-VA medications and local prescriptions that have or been discontinued in the past 90 days. With the exception of Allergies, if a category is not listed below, it means there were no relevant medications for the patient. 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 PROPHYLAXIS Solution: CEFAZOLIN 1GM/D5W (50 ML) Issued: 03/10/24 Expires: 04/10/24 Status: ACTIVE GENTAMICIN INJ,SOLN Schedule: ONCE Special: For Furniture Shampooer Solution: SODIUM CHLORIDE 0.9% *IRRIG* (500 ML) Additive: GENTAMICIN (40 MG) Issued: 03/10/24 Expires: 03/11/24 Status: ACTIVE SODIUM CHLORIDE 0.9% INJ,SOLN Special: yard motor operator to Furniture Shampooer. Solution: SODIUM CHLORIDE 0.9% (1000 ML) Issued: 03/10/24 Expires: 03/24/24 Status: ACTIVE ASPIRIN TAB,EC Directions: 81MG Schedule: DAILY Admin: Issued: 03/10/24 Expires: 06/17/24 Status: ACTIVE CHOLECALCIFEROL (VITAMIN D3) TAB Directions: 25MCG Schedule: DAILY Admin: Issued: 03/10/24 Expires: 06/17/24 Status: ACTIVE EZETIMIBE TAB Directions: 10MG Schedule: QPM Admin: 1700 Issued: 03/10/24 Expires: 06/17/24 Status: ACTIVE FLUTICASONE SOLN,NASAL Directions: 1 SPRAY Schedule: DAILY Admin: Issued: 03/10/24 Expires: 06/17/24 Status: ACTIVE No remote medications found. Outpatient Active/Pending: ACCU-CHEK GUIDE (GLUCOSE) TEST STRIP Directions: USE [...] Filled: 02/27/24 Expires: 01/14/25 Refills: 2 Status: ACTIVE ASPIRIN 81MG EC [...] 1 Status: ACTIVE No remote medications found. No local medications found. No remote medications found. Inpatient Nonva Medications: ASCORBIC ACID 500MG TAB Directions: 1000MG MOUTH DAILY Status: ACTIVE CENTRUM SILVER TABLET Directions: 1 TABLET MOUTH DAILY Status: ACTIVE MAGNESIUM OXIDE 420MG TAB Directions: 840MG MOUTH DAILY Status: ACTIVE Inpatient : No local medications found. No remote medications found. Inpatient Discontinued: No local medications found. No remote medications found. /amando/ VIK HALLMAN MSA Signed: 03/10/2024 17:31 [facility] Mar 10, 2024 10:05 AM SCANNED NOTE: LOCAL TITLE: CONSCIOUS SEDATION SCANNED NOTE STANDARD TITLE: SCANNED NOTE DATE OF NOTE: MAR 10, 2024@10:05 ENTRY DATE: MAR 11, 2024@10:06:18 AUTHOR: NAHEED UMAÑA EXP COSIGNER: URGENCY: STATUS: COMPLETED The scanned image may be viewed in [employer]. /amando/ NAHEED UMAÑA LEAD PAYROLL ACCOUNTING CLERK Signed: 03/11/2024 10:06 [facility]
--- OUTSIDE RECORDS SUMMARY | 2024-07-14 06:50 | XMS_ITS | Encounter Summary ---
Author Name [facility] [place] Organization [facility] [place] Address [address] [place] [id number] Care Team Providers Care Bacon Stringer Name Role Phone JOSE MIGUELMARYSECIRO JOOENEDINA Primary [...] PART A May 30, 2024 PART A [id number] WIGGLESWO RTH,STEWA RT PATIENT MEDICARE (WNR) MEDICARE (M) PART B May 30, 2024 PART B [id number] [id number] WIGGLESWO RTH,STEWA RT PATIENT [facility] 2017 SELEC T RETIR ED May 16, 2018 [facility] [id number] [phone] WIGGLESWO RTH,STEWA RT PATIENT [facility] 2017 [employer] A Apr 01, 2017 DODA [id number] WIGGLESWO RTH,STEWA RT PATIENT [facility] 2024 PRIME RETIR ED Apr 01, 2024 [employer] [id number] [phone] WIGGLESWO RTH,EDGARDKole RT PATIENT Selected Encounter This section includes the information on record at [place] for the Encounter. Date/Time Encounter Type Encounter Description Reason Provider Source Jun 25, 2024 08:00 AM OFFICE O/P EST MOD 30 MIN DERMATOLOGY ICD-10-CM D18.01 Hemangioma of skin and subcutaneous tissue MADISONANNA BUSTAMANTERYLAND Maximo IHE Encounter Template Text not used by [place] Assessments - Encounter Diagnoses This section includes the primary and secondary diagnoses documented for the Encounter. Date/Time Primary/Secondary Diagnosis Diagnosis Name Provider Source Jun 25, 2024 08:31 AM PRIMARY Hemangioma of skin and subcutaneous tissue MADISONAIDEN MARION PHER C [place] Jun 25, 2024 08:31 AM SECONDARY Actinic keratosis MADISONAIDEN MARION PHER C [place] Jun 25, 2024 08:31 AM SECONDARY Encounter for screening for other disorder AIDEN MADISON PHER C [place] Jun 25, 2024 08:31 AM SECONDARY Nevus, non-neoplastic AIDEN MADISON PHER C [place] Jun 25, 2024 08:31 AM SECONDARY Other seborrheic keratosis MADISONAIDEN MARION PHER C [place] Jun 25, 2024 08:31 AM SECONDARY Personal history of malignant melanoma of skin AIDEN MADISON PHER C [place] Jun 25, 2024 08:31 AM SECONDARY Personal history of other malignant neoplasm of skin AIDEN MADISON PHER C [place] Plan of Treatment: Future Appointments (+ 6 [...] Appointment Type Appointme nt Facility Name Jun 26, 2024 08:20 AM AMBULATORY - SURGERY [place] [facility] Jun 29, 2024 01:30 PM AMBULATORY - NONE [place] [facility] Jul 15, 2024 09:00 AM AMBULATORY - NONE [place] Jul 27, 2024 08:00 AM AMBULATORY - SURGERY [place] Jul 29, 2024 01:00 PM AMBULATORY - MEDICINE [facility] August 03, 2024 07:00 AM AMBULATORY - NONE [facility] Sep 23, 2024 10:00 AM AMBULATORY - MEDICINE [facility] [facility] Nov 03, 2024 09:40 AM AMBULATORY - SURGERY XIOMYIN ULISES [facility] Active, Pending, and Scheduled Orders This section includes a listing of several types of active, pending, and scheduled orders, including clinic medications orders, diagnostic test orders, procedure orders and consult orders; where the start date of the order is 45 days before the date of the Encounter or 45 days after the date of theEncounter. The data comes from all [facility]. Test Date/Time Test Type Test Details Facility Name Jun 26, 2024 09:07 AM Consult Order PAIN CLINI C ANESTHESIOLOGY/PAIN CD OUTPATIENT Cons Science Writer's Choice [facility] Jul 15, 2024 12:00 AM Imaging - Ultrasou nd Order FNA BX W/ ULTRASND GDN,1ST LESION [facility] Radiology Reports: +/- 30 days [...] the Encounter. The data comes from all [facility]. Date/Time Radiology Report Provider Source Jun 29, 2024 12:58 PM U/S THYROID: KATE CARTER [id number] -1960 M Exm Date: JUN 29, 2024@12:58 Req Phys: MARTHA HENLEY Loc: X-RAY/MRI/DOROTHEA/NC (Req'g Loc Img Loc: ULTRASOUND Service: [place] [address] (Case [id number] COMPLETE) U/S THYROID (US Detailed) CPT:68401 Reason for Study: SEE CLINICAL HISTORY Clinical History: REASON FOR EXAM:Nodule/Lesion follow up PERTINENT PATIENT HISTORY: PROVIDER ExtPager# Report Status: Verified Date Reported: JUN 30, 2024 Date Verified: JUN 30, 2024 Academic Affairs Assistant E-Sig: Report: EXAMINATION: THYROID ULTRASOUND CLINICAL [...] Interpreting Staff: CHIN CASTILLO, Radiologist Verified by lithographic plate maker for CHIN CASTILLO /CHIN LEES-D [facility] Jun 17, 2024 08:36 AM MRI C SPINE W/O CO NTRAST: KATE CARTER [id number] -1960 M Exm Date: JUN 17, 2024@08:36 Req Phys: MARTHA HENLEY Loc: XIOMY VAMSI BEATTY 1-2 (Req'g Lo Img Loc: MAGNETIC [facility] IMAGING Service: [place] [address] (Case [id number] COMPLETE) MRI C SPINE W/O CONTRAST (MRI Detailed) CPT:01845 Reason for Study: SEE CLINICAL HISTORY Clinical History: STATUS OF PLAIN FILMS:Done, exam date/impression above. MRI Screening (Required): IMPLANTED DEVICE DOCUMENTATION 03/11/2024 09:29 Local Title: IMPLANTED CARDIAC DEVICE Standard Title: CLINICAL WARNING Patient has an Implanted Cardiac Device. 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 RA lead - [employer], model [id number], SN [id number]. RV lead - [employer], model [id number], SN [id number]. LV - [employer]don, model [id number], SN [id number]. Parameters: RA - threshold - 0.25v@0.5ms, 460 ohms, sensing - >5mV RV - threshold - 0.25v@0.5ms, 640 ohms, sensing - >12mV LV - threshold - 1.25v@0.5ms, 700 ohms. DFT's - were not assessed. Shock coil impedance - 73 ohms. Implant 03/10/2024 Dr. Mckinney Signed by: /es/ RUTHANN BARONE RN 03/11/2024 09:32 Does the [place] have any Cardiac Implants? ICD Does the [place] have any implanted stimulators? None Does the have cochlear implants? No Does the have Cerebral aneurysm clip(s)? No Does the [place] have any shrapnel? No If yes, where [...] 17, 2024 Date Verified: JUN 17, 2024 Academic Affairs Assistant E-Sig: Report: KATE CARTER 1960 EXAM: MRI [...] Staff: FATUMA GARCIA, Staff Physician Verified by lithographic plate maker for FATUMA GARCIA /OCTAVIA GARCIA,FATUMA [facility] Encounter Notes: All associated encounter notes This section contains the clinical notes associated to the Encounter. Date/Time Encounter Note(s) Provider Source Jun 25, 2024 08:19 AM DERMATOLOGY PHYSIC PEREZ NOTE: LOCAL TITLE: DERMATOLOGY CLINIC PHYSICIAN/PA/PRIMARY THERAPIST NOTE STANDARD TITLE: DERMATOLOGY PHYSICIAN NOTE DATE OF NOTE: JUN 25, 2024@08:19 ENTRY DATE: JUN 25, 2024@08:19:11 AUTHOR: GALILEA MADISON EXP COSIGNER: URGENCY: STATUS: COMPLETED Patient is a 64 yo WHITE MALE here for: skin exam and for non-healing lesions on the face. Have you used tobacco products (smoked or chewed) in the past 12 months? - No Are you having any pain or recurrent pain in the last several weeks/months? No Active Outpatient Medications (including Supplies): Active Outpatient [...] ONE TABLET BY MOUTH EVERY EVENING ACTIVE (S) Indication: FOR CHOLESTEROL 7) FLUTICASONE PROP 50MCG [...] 840MG MOUTH DAILY ACTIVE 24 Total Medications ALLERGIES: VANCOMYCIN, GABAPENTIN, PREGABALIN, SIMVASTATIN, ROSUVASTATIN History of SCC/BCC, Hisory of Melanoma PREVIOUS REPORTS: 05/2021 MICROSCOPIC EXAM/DIAGNOSIS: A. Skin, left neck, [...] called to and read back by: Dr. Sav Santos on 11/03/2020 at 10:[address] Aaron Jarrell. PHYSICAL EXAM - Waist-up Skin Exam: head, neck, chest, back, abdomen, right and left arm, hands Common Physical Exam Findings: - Erythematous scaly macules on - Face, Right Ear, Left Ear - Multiple scattered nicole/brown reticulated macules on sun-exposed areas - Few scattered nicole/brown reticulated macules on sun-exposed areas - Stuck-on, greasy flesh colored or brown keratotic papules/macules with or without pseudo-horn cysts on - Head, Trunk, Arms - Discrete arzola red papules on - Scalp/Head, Trunk, Extrmities ASSESSMENT & PLAN: AK's: Explained to the patient that these are precancerous lesions and should be treated. Discussed the discomfort caused by LN2. Disscussed risks of cryotherapy such as scabbing, crusting, pain, blistering, pigmentary change, and possibility of scarring. - Wound care was discussed, and wound care sheet given. Patient consented to treatment and had no further questions or concerns. Information sheet provided - LN2 x 9 to - Face, Right Ear, Left Ear Nevi and lentigines: Monitor moles for change/skin [...] not necessary. Arzola Hemangioma: Reassurance was provided. - h/o BCC/SCC: no evidence of recurrence, h/o Melanoma: no evidence of recurrence Return to clinic order placed - 6 mo I spent 30 minutes, reviewing history, performing an exam and evaluation, entering clinical information EHR, interpreting result, counseling patient/family/caregiver, reviewing x-rays/mri/labs, ordering meds/test/procedures, referring and communicating with consulting health direct care worker, and care coordination. /amando/ DANYA HAWKINS, MARIUM PHYSICIAN UTILITIES SERVICE INVESTIGATOR Signed: 06/25/2024 08:32 GALILEA MADISON-MARÍA [facility]
--- OUTSIDE RECORDS SUMMARY | 2024-07-14 06:50 | XMS_ITS | Encounter Summary ---
Author Name [facility] [facility] [place] Address [address] [place] [id number] Care Team Providers Care Convention Services Director Name Role Phone JOSUE JOOENEDINA Primary Care [...] PART A May 30, 2024 PART A [id number] WIGGLESWO RTH,STEWA RT PATIENT MEDICARE (WNR) MEDICARE (M) PART B May 30, 2024 PART B [id number] [phone] WIGGLESWO RTH,STEWA RT PATIENT [facility] 2017 SELEC T RETIR ED May 16, 2018 [facility] [id number] [phone] WIGGLESWO RTH,STEWA RT PATIENT [facility] 2018 [employer] A Apr 01, 2017 DODA [id number] WIGGLESWO RTH,STEWA RT PATIENT [facility] 2024 PRIME RETIR ED Apr 01, 2024 [employer]IRED [id number] [phone] JAZMINE RTHAMY RT PATIENT Selected Encounter This section includes the information on record at [place] for the Encounter. Date/Time Encounter Type Encounter Description Reason Provider Source Jun 17, 2024 04:09 PM PH1 ASSMT&MGMT NQHP 5-10 TELEPHONE PRIMARY CARE ICD-10-CM M50.30 Other cervical disc degeneration, unsp cervical region Nathan CORDOVA [facility] Encounter Template Text not used by [place] Assessments - Encounter Diagnoses This section includes the primary and secondary diagnoses documented for the Encounter. Date/Time Primary/Secondary Diagnosis Diagnosis Name Provider Source Jun 17, 2024 04:09 PM PRIMARY Other cervical disc degeneration, unsp cervical region Nathan CORDOVA [facility] Plan of Treatment: Future Appointments (+ 6 [...] 20 appointments. The data comes from all [place] treatment facilities. Appointment Date/Time Appointment Type Appointme nt Facility Name Jun 25, 2024 08:00 AM [facility] [place] [facility] Jun 26, 2024 08:20 AM [facility] [place] [facility] Jun 29, 2024 01:30 PM AM[place]UL[place]ORY - NONE [place] [facility] Jul 15, 2024 09:00 AM [facility] - [facility] [facility] Jul 27, 2024 08:00 AM AMBULATORY - SURGERY [place] [facility] Jul 29, 2024 01:00 PM AMBULATORY - MEDICINE [place] [facility] August 03, 2024 07:00 AM AMBULATORY - NONE [place] [facility] Sep 23, 2024 10:00 AM AMBULATORY - MEDICINE [place] [facility] Nov 03, 2024 09:40 AM AMBULATORY - SURGERY [place] [facility] Active, Pending, and Scheduled Orders This section includes a listing of several types of active, pending, and scheduled orders, including clinic medications orders, diagnostic test orders, procedure orders and consult orders; where the start date of the order is 45 days before the date of the Encounter or 45 days after the date of theEncounter. The data comes from all [place] treatment facilities. 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 Date/Time Temperature Pulse Blood Pressure Respiratory Rate SP02 Pain Height Weight Body Mass Index Source Jun 17, 2024 08:20 AM 97.5 70 128/75 97 0 204.4 28 [place] [facility] Social History: Smoking Status (Most current) and Tobacco Use (All prior to encounter date) This section includes the most current, and the historical, smoking and tobacco- related health factors from the [place] facility where the Encounter took place. Current Smoking Status This section includes the most current smoking, or tobacco-related health factor, from the [place] facility where the Encounter took place. Date/Time Current Smoking Status Comment Facil ity Mar 16, 2024 10:30 AM VA-TOBACCO NEVER U SED CIGARETTES [facility] Tobacco Use History This section includes a history of the smoking, or tobacco-related health factors, that were collected on or before the date of the Encounter. The data comes from the [place] facility where the Encounter took place. Date/Time Smoking Status/Tobacco Use Comment F acility Mar 16, 2024 10:30 AM VA-TOBACCO NEVER U SED OTHER TYPE [facility] August 15, 2023 08:00 AM VA-TOBACCO NEVER USED [facility] Jun 11, 2022 08:30 AM VA-TOBACCO NEVER USED [facility] May 11, 2021 08:00 AM VA-TOBACCO FORMER USER [facility] May 11, 2021 08:00 AM VA-TOBACCO QUIT 15 YRS OR MORE [facility] Apr 04, 2020 08:30 AM VA-TOBACCO FORMER USER [facility] Apr 04, 2020 08:30 AM VA-TOBACCO QUIT 15 YRS OR MORE [facility] Mar 18, 2019 12:56 PM VA-TOBACCO FORMER USER [facility] Mar 18, 2019 12:56 PM VA-TOBACCO QUIT 5 TO < 15 YRS [facility] Radiology Reports: +/- 30 days [...] 2024 12:58 PM U/S THYROID: KATE CARTER [id number] -1960 M Exm Date: JUN 29, 2024@12:58 Req Phys: SHRUTHI CEJA Pat Loc: X-RAY/MRI/DOROTHEA/[place] (Req'g Loc Img Loc: ULTRASOUND Service: [place] [address] (Case [id number] COMPLETE) U/S THYROID (US Detailed) CPT:56983 Reason for Study: SEE CLINICAL HISTORY Clinical History: REASON FOR EXAM:Nodule/Lesion follow up PERTINENT PATIENT HISTORY: 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 ExtPager# Report Status: Verified Date Reported: JUN 30, 2024 Date Verified: JUN 30, 2024 Lining Stamper E-Sig: Report: EXAMINATION: THYROID ULTRASOUND CLINICAL INDICATIONS: [...] Interpreting Staff: CHIN CASTILLO, Radiologist Verified by ampoule inspector for CHIN CASTILLO /CHIN LEES-[facility] Jun 17, 2024 08:36 AM MRI C SPINE W/O CO NTRAST: RAFTYSHAWNKATE [id number] -1960 M Exm Date: JUN 17, 2024@08:36 Req Phys: SHRUTHI CEJA [facility] (Req'g Lo Img Loc: [facility] Service: [place] [address] (Case [id number] COMPLETE) MRI C SPINE W/O CONTRAST (MRI Detailed) CPT:72047 Reason for Study: SEE CLINICAL HISTORY Clinical History: STATUS OF PLAIN FILMS:Done, exam date/impression above. MRI Screening (Required): IMPLANTED DEVICE DOCUMENTATION 03/11/2024 09:29 Local Title: IMPLANTED CARDIAC DEVICE Standard Title: CLINICAL WARNING Patient has an Implanted Cardiac Device. 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 RA lead - [employer], model [id number], SN [id number]. RV lead - [employer], model 7122Q, SN [id number]. LV - [employer], model 1458QL, SN [id number]. Parameters: RA - threshold - 0.25v@0.5ms, 460 ohms, sensing - >5mV RV - threshold - 0.25v@0.5ms, 640 ohms, sensing - >12mV LV - threshold - 1.25v@0.5ms, 700 ohms. DFT's - were not assessed. Shock coil impedance - 73 ohms. Implant 03/10/2024 Dr. Mckinney Signed by: /es/ RUTHANN BARONE RN 03/11/2024 09:32 Does the [facility] have any Cardiac Implants? ICD Does the [facility] [place] have any implanted stimulators? None Does the have cochlear implants? No Does the have Cerebral aneurysm clip(s)? No Does the [place] have any shrapnel? No If yes, where in your body? Please list other implants not listed above: MRI table has a weight limit of 551 lbs. [facility] Weight: *198 lb [89.81 kg] (03/16/2024 10:02) Is this patient claustrophobic?: No REASON FOR EXAM: OTHER (provide detailed justification for your request) PERTINENT PATIENT HISTORY: Cervical radiculopathy Risk factors for GADOLINIUM NEPHROGENIC SYSTEMIC SCLEROSIS: Report Status: Verified Date Reported: JUN 17, 2024 Date Verified: JUN 17, 2024 Lining Stamper E-Sig: Report: KATE CARTER 1960 EXAM: MRI [...] Staff: FATUMA GARCIA, Staff Physician Verified by ampoule inspector for FATUMA GARCIA /OCTAVIA GARCIA[facility] Encounter Notes: All associated encounter notes This section contains the clinical notes associated to the Encounter. Date/Time Encounter Note(s) Provider Source Jun 30, 2024 08:43 AM ADDENDUM: LOCAL TITLE: Addendum STANDARD TITLE: ADDENDUM DATE OF NOTE: JUN 30, 2024@08:43:33 ENTRY DATE: JUN 30, 2024@08:43:34 AUTHOR: SHRUTHI CEJA EXP COSIGNER: URGENCY: STATUS: COMPLETED Please tell pt that thyroid u/s showed a nodule that needs to be biopsied (ordered). Also, repeat u/s is rec in 1 year and was ordered for 06/29/25. Impression: Dominant nodule in the left thyroid lobe for which fine-needle aspiration is recommended. 1 year follow-up thyroid ultrasound of right thyroid nodule is recommended /amando/ Shruthi Ceja MD Primary Care Physician Signed: 06/30/2024 08:45 Receipt Acknowledged By: 07/01/2024 09:40 /amando/ TORI CORDOVA Registered Nurse ====== --- Original Document --- 06/17/24 PC CARE MANAGEMENT: Contacted Mr. KATE CARTER regarding PCP recommendations: Please tell patient that the cervical MRI suggested spinal cord compression at the C3/4 level. A neurosurgery consult was placed. However, neurosurgery is asking if patient is having any upper extremity weakness or numbness. Also, there was evidence of a small left thyroid nodule. A thyroid ultrasound was ordered for further evaluation. Impression: 1. Suggestion of spinal cord compression at C3-4 level from a small central disc osteophyte complex. Close clinical follow-up and prompt surgical evaluation are recommended. 2. Multilevel neural foraminal stenosis as detailed above. 3. Suggestion of small left thyroid nodule. Follow-up nonemergent thyroid sonogram is also recommended for confirmation. __Veteran denied any weakness or numbness I advised if anything changes to call the triage line or go to the ER [facility] states understanding. No further questions or concerns at this time. Agreeable to plan of care. identified using two identifiers (name, last four). Spent 5 minutes on the call. /amando/ TORI CORDOVA Registered Nurse Signed: 06/17/2024 16:13 06/18/2024 ADDENDUM STATUS: COMPLETED Please tell patient that neurosurgery responded per below ADDED COMMENT 06/18/24 14:04 ANNA SALGADO CHRIST In the absence of myelopathy and radiculopthy and if is experiencing neck pain only, there would be no surgical intervention needed. If would still like to discuss in person, let us know and we can schedule in [facility] clinic. Thank you. /lauryn Ceja MD Primary Care Physician Signed: 06/18/2024 14:09 Receipt Acknowledged By: 06/18/2024 14:33 /amando/ TORI CORDOVA Registered Nurse 07/01/2024 ADDENDUM STATUS: UNSIGNED You may not VIEW this UNSIGNED Addendum. SHRUTHI CEJA [facility] Jun 18, 2024 02:08 PM ADDENDUM: LOCAL TITLE: Addendum STANDARD TITLE: ADDENDUM DATE OF NOTE: JUN 18, 2024@14:08:35 ENTRY DATE: JUN 18, 2024@14:08:37 AUTHOR: SHRUTHI CEJA EXP COSIGNER: URGENCY: STATUS: COMPLETED Please tell patient that neurosurgery responded per below ADDED COMMENT 06/18/24 14:04 ANNA SALGADO CHRIST In the absence of myelopathy and radiculopthy and if is experiencing neck pain only, there would be no surgical intervention needed. If would still like to discuss in person, let us know and we can schedule in [facility] clinic. Thank you. /amando/ Shruthi Ceja MD Primary Care Physician Signed: 06/18/2024 14:09 Receipt Acknowledged By: 06/18/2024 14:33 /amando/ TORI CORDOVA Registered Nurse ====== --- Original Document --- 06/17/24 PC CARE MANAGEMENT: Contacted Mr. KATE PAVON RAUL regarding PCP recommendations: Please tell patient that the cervical MRI suggested spinal cord compression at the C3/4 level. A neurosurgery consult was placed. However, neurosurgery is asking if patient is having any upper extremity weakness or numbness. Also, there was evidence of a small left thyroid nodule. A thyroid ultrasound was ordered for further evaluation. Impression: 1. Suggestion of spinal cord compression at C3-4 level from a small central disc osteophyte complex. Close clinical follow-up and prompt surgical evaluation are recommended. 2. Multilevel neural foraminal stenosis as detailed above. 3. Suggestion of small left thyroid nodule. Follow-up nonemergent thyroid sonogram is also recommended for confirmation. __Veteran denied any weakness or numbness I advised if anything changes to call the triage line or go to the ER [facility] states understanding. No further questions or concerns at this time. Agreeable to plan of care. identified using two identifiers (name, last four). Spent 5 minutes on the call. /amando/ TORI CORDOVA Registered Nurse Signed: 06/17/2024 16:13 SHRUTHI CEJA [facility] Jun 17, 2024 04:09 PM PRIMARY CARE E & M NOTE: LOCAL TITLE: PC CARE MANAGEMENT STANDARD TITLE: PRIMARY CARE E & M NOTE DATE OF NOTE: JUN 17, 2024@16:09 ENTRY DATE: JUN 17, 2024@16:09:12 AUTHOR: TORI CORDOVA EXP COSIGNER: URGENCY: STATUS: COMPLETED PC CARE MANAGEMENT Has ADDENDA Contacted Mr. KATE CARTER regarding PCP recommendations: Please tell patient that the cervical MRI suggested spinal cord compression at the C3/4 level. A neurosurgery consult was placed. However, neurosurgery is asking if patient is having any upper extremity weakness or numbness. Also, there was evidence of a small left thyroid nodule. A thyroid ultrasound was ordered for further evaluation. Impression: 1. Suggestion of spinal cord compression at C3-4 level from a small central disc osteophyte complex. Close clinical follow-up and prompt surgical evaluation are recommended. 2. Multilevel neural foraminal stenosis as detailed above. 3. Suggestion of small left thyroid nodule. Follow-up nonemergent thyroid sonogram is also recommended for confirmation. __Veteran denied any weakness or numbness I advised if anything changes to call the triage line or go to the ER states understanding. No further questions or concerns at this time. Agreeable to plan of care. [facility] identified using two identifiers (name, last four). Spent 5 minutes on the call. /amando/ TORI CORDOVA Registered Nurse Signed: 06/17/2024 16:13 06/18/2024 ADDENDUM STATUS: COMPLETED Please tell patient that neurosurgery responded per below ADDED COMMENT 06/18/24 14:04 ANNA SALGADO CHRIST In the absence of myelopathy and radiculopthy and if is experiencing neck pain only, there would be no surgical intervention needed. If would still like to discuss in person, let us know and we can schedule in [facility] clinic. Thank you. /amando/ Shruthi Ceja MD Primary Care Physician Signed: 06/18/2024 14:09 Receipt Acknowledged By: 06/18/2024 14:33 /amando/ TORI CORDOVA Registered Nurse 06/30/2024 ADDENDUM STATUS: COMPLETED Please tell pt that thyroid u/s showed a nodule that needs to be biopsied (ordered). Also, repeat u/s is rec in 1 year and was ordered for 06/29/25. Impression: Dominant nodule in the left thyroid lobe for which fine-needle aspiration is recommended. 1 year follow-up thyroid ultrasound of right thyroid nodule is recommended /amando/ Shruthi Ceja MD Primary Care Physician Signed: 06/30/2024 08:45 Receipt Acknowledged By: 07/01/2024 09:40 /amando/ TORI CORDOVA Registered Nurse 07/01/2024 ADDENDUM STATUS: COMPLETED Spoke with see care man note 07/01/24 /lauryn CORDOVA Registered Nurse Signed: 07/01/2024 09:40 TORI CORDOVA [facility]
[2024-07-14 06:58] LABS: Microscopic, Urine URINE MICROSCOPIC (MICROSCOPIC)
[2024-07-14 07:24] LABS: Appearance,Urine CLEAR (Clear); Bilirubin,Urine Negative (Negative); Blood, Urine Negative (Negative); Color,Urine YELLOW (Yellow); Glucose,Urine (UA) 3+ (Negative); Ketones,Urine Negative (Negative); Leukocyte Esterase,Urine Negative (Negative); Nitrate,Urine Negative (Negative); PH,Urine 5.5 (5.0-8.5); Protein,Urine 1+ (Negative); Specific Gravity, Urine 1.015 (1.005-1.030); Urobilinogen,Urine 0.2 EU/dl (0.2)
[2024-07-14 07:47] LABS: Albumin Level 4.3 g/dl (3.5-5.0); Chloride 99 mmol/L (98-107); Potassium 4.4 mmoL/L (3.5-5.1); Sodium 137 mmol/L (136-145)
[2024-07-14 07:48] LABS: WBC,Urine Occasional #/hpf (0-3)
[2024-07-14 07:50] LABS: Alanine Aminotransferase 36 U/L (12-78); Albumin/Globulin Ratio 1.7 (1.1-1.8); Alkaline Phosphatase 71 U/L (38-126); Anion Gap 13.4 mEq/L (5-15); Aspartate Amino Transferase 42 U/L (17-59); Bilirubin,Total 0.5 mg/dl (0.2-1.3); Blood Urea Nitrogen 24 mg/dl (9-20); Calcium 9.1 mg/dl (8.4-10.2); Carbon Dioxide 29 mmol/L (22.0-30.0); Estimated Glomerular Filt Rate 55 ml/min (>60); GFR (African American) 67 ML/MIN (>60); Globulin 2.5 g/dL (1.3-3.2); Glucose 170 mg/dl (74-100); Total Protein,Serum 6.8 g/dl (6.3-8.2)
== END 2024-07-14 23:59 | disposition home or self-care (01) ==
LOC: RT 06:44
PROVIDERS: PCP Chiropractor; Visit Provider Chiropractor
DX: I51.7 Cardiomegaly (principal); I25.10 Atherosclerotic heart disease of native coronary artery without angina pectoris; E11.9 Type 2 diabetes mellitus without complications
CPT/HCPCS: 36415; 80053; 81001; 93306